=== PATIENT | female | born 1945 | race Caucasian/White ===

== ENCOUNTER → 2020-05-05 10:12 | Outpatient (BNVA) | payer MEDICARE, SELFPAY | PROVIDERS: PCP Internal Medicine Geriatric Medicine; Visit Provider Surgery | DX: C50.912 Malignant neoplasm of unspecified site of left female breast (principal) | CPT/HCPCS: 99212 ==

== ENCOUNTER 2020-11-30 09:25 | Outpatient (REF) | payer MEDICARE, SELFPAY ==
--- NOTE | ~2020-11-30 | MM_ITS ---
EXAMINATION: MM DIAGNOSTIC DIGITAL BREAST TOMOSYNTHESIS, BILATERAL CLINICAL INFORMATION: Due for yearly. 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 COMPARISON: Mammography: 12/01/2019, 09/23/2018, 05/19/2017, 03/19/2017, 03/19/2017, 03/05/2017. TECHNIQUE: Digital breast tomosynthesis is performed in both the craniocaudal and mediolateral oblique views along with computer-aided detection (CAD). Synthesized 2D images are generated from the tomosynthesis. FINDINGS: There are scattered areas of fibroglandular density (ACR BI-RADS breast composition Category b). Parenchymal pattern is similar to prior exam. There are post therapy changes on the right with scarring and surgical clips posterior upper outer quadrant. Neither breast shows interval mass or developing density or interval architectural abnormality. There are no abnormal calcifications. No significant changes. Results are provided to the patient at time of visit by the technologist. MM/MM tomosynthesis diagnostic BI IMPRESSION: No mammographic evidence of malignancy. Post therapy changes right breast. ASSESSMENT: BI-RADS 2: Benign RECOMMENDATION: Routine annual mammography screening. This patient's information was entered into a reminder system with a target due date for their next mammogram.
== END 2020-11-30 09:26 | disposition home or self-care (01) ==
LOC: HO.MAMMO 09:25
PROVIDERS: Visit Provider Surgery
DX: Z85.3 Personal history of malignant neoplasm of breast (principal)
CPT/HCPCS: 77062; 77066

== ENCOUNTER → 2020-12-07 09:17 | Outpatient (BNVA) | payer MEDICARE, SELFPAY | PROVIDERS: PCP Internal Medicine Geriatric Medicine; Visit Provider Surgery | DX: C50.912 Malignant neoplasm of unspecified site of left female breast (principal) | CPT/HCPCS: 99212 ==

== ENCOUNTER 2020-12-26 11:29 | Outpatient (REF) | payer MEDICARE, SELFPAY ==
[2020-12-26 12:32] LABS: Hemoglobin 12.8 g/dl (12.0-16.0); PLT CLUMP 1; Red Cell Distribution Width 12.9 % (11.0-16.0)
[2020-12-26 12:33] LABS: Hematocrit 37.4 % (37-47); Mean Corpuscular HGB Conc 34.2 g/dl (31.0-35.0); Mean Corpuscular Hemoglobin 30.3 pg (27.0-33.0); Mean Corpuscular Volume 88.4 fL (80-98); Mean Platelet Volume 9.9 fL (9.4-12.3); Platelet Count 146 X10*3/uL (160-400); Red Blood Count 4.23 X10*6/uL (4.20-5.50)
[2020-12-26 12:34] LABS: Estimated Average Glucose 174 mg/dL; Hemoglobin A1c % 7.7 %
[2020-12-26 12:35] LABS: White Blood Count 6.2 X10*3/uL (4.8-10.8)
[2020-12-26 12:42] LABS: Alanine Aminotransferase 19 U/L (0-31); Alkaline Phosphatase 77 U/L (39-117); Anion Gap 11 (12-20); Aspartate Amino Transferase 16 U/L (5-31); Bilirubin Direct 0.2 mg/dL (0.0-0.5); Bilirubin Total 0.6 mg/dL (0.0-1.0); Blood Urea Nitrogen 25 mg/dL (9-16); Calcium 9.4 mg/dL (8.4-10.2); Carbon Dioxide 26 mmol/L (22-29); Chloride 106 mmol/L (96-108); Estimated Glomerular Filt Rate > 60; Glucose Random 227 mg/dL (60-115); Potassium 4.2 mmol/L (3.3-5.1); Sodium 139 mmol/L (135-145); Total Protein 6.6 g/dL (6.5-8.0)
[2020-12-26 12:51] LABS: Creatinine Urine 47.96 mg/dL; Microalbum/Creatinine Ratio Ur 72.9 ug/mg cr
[2020-12-26 13:06] LABS: TSH reflex Free T4 1.01 uIU/mL (0.32-4.0)
== END 2020-12-26 11:30 | disposition home or self-care (01) ==
LOC: HO.LAB 11:29
PROVIDERS: PCP Internal Medicine Geriatric Medicine; Visit Provider Internal Medicine Geriatric Medicine
DX: E03.9 Hypothyroidism, unspecified (principal); E11.65 Type 2 diabetes mellitus with hyperglycemia; E78.2 Mixed hyperlipidemia
CPT/HCPCS: 36415; 80053; 82043; 82248; 83036; 84443; 85027

== ENCOUNTER 2021-06-20 11:06 | Outpatient (REF) | payer MEDICARE, SELFPAY ==
--- NOTE | 2021-06-27 16:57 | MHC.AU.ANO ---
Adult Audiological Evaluation Date of Visit: 06/20/21 Planning Official Used: Not Applicable Reason for Appointment: Princess was referred for an audiologic evaluation due to question of decreased hearing, right ear greater than left. The right ear hearing seemed to decrease when she experience pain and stiffness on the right side of her neck several months ago. However, very recently, Princess received injuries and required stitches to her left ear and face after being attacked by a dog. The areas are still healing and Dr. Beasley was not able to remove occluding cerumen seen in the left ear. Has hearing been tested previously?: No Hearing Handicap Inventory: HHIE SCORE: 24 Based on HHIE score, patient has: Mild to moderate perceived hearing handicap Ear History: Bothersome Tinnitus/Ringing/Noises in Ears: Right Ear Ear used on the phone: Right Ear Medical History: Medical History:Diabetes, Heart Problems, High Blood Pressure.Thyroid Disease, Breast Cancer treated with Lumpectomy and Radiation, Hylercholeserolemia Medication List: Aspirin, Clobetasol Propionate, Fluticasone Propionate, Debrox, Lipitor, Glipizide, Multivitamin, Enalapril Maleate, Atenolol, Levothyroxine Sodium, Macrobid Otoscopy: Right Ear: Small amount of non-occluding cerumen Left Ear: Mostly occluding cerumen Tympanometry: Tympanometry performed due to: To assess integrity of the middle ear system Right Ear: Normal Middle Ear System (Type A) Left Ear: Could Not Obtain Seal Patient Did Not Tolerate Tympanometry Otoacoustic Emissions Not performed at today's visit. Hearing Evaluation: Transducer(s) Used: Insert Earphones Bone Conduction Method: Conventional Audiometry Stimuli Used: Pure Tones Right Ear: Description of Hearing: Moderate to severe sensorineural hearing loss Left Ear: Description of Hearing: Mild sloping to moderately-severe sensorineural hearing loss Speech Recognition Threshold (SRT): Method Used: Monitored Live Voice Stimuli Used: Spondee Words Right Ear: 45 dB HL Left Ear: 35 dB HL Word Discrimination: Method: Recorded Lists Word Lists Used: NU-6 Right Ear: 92% at 80 dB HL Left Ear: 60% at 75 dB HL Recommendations: Given the asymmetric hearing loss and recent injury of the left ear and need for cerumen removal, advise medical consultation with an Director Of Epidemiology. Patient does not feel they are ready for amplification at this time. Audiological re-evaluation in one year. Will send a reminder card. Diagnosis: Primary Diagnosis: H90.3 Bilateral Sensorineural Hearing Loss Services Performed: Comprehensive Audiological Evaluation (CPT 46302) Tympanometry (CPT 72611) Signature: Provider: Chiara Rios, MARCIN-A
== END 2021-06-20 11:07 | disposition home or self-care (01) ==
LOC: HO.SH 11:06
PROVIDERS: Visit Provider Internal Medicine Geriatric Medicine
DX: Z01.118 Encounter for examination of ears and hearing with other abnormal findings (principal); H90.3 Sensorineural hearing loss, bilateral
CPT/HCPCS: 92557; 92567

== ENCOUNTER 2021-12-05 09:48 | Outpatient (REF) | payer MEDICARE, SELFPAY ==
--- NOTE | ~2021-12-05 | MM_ITS ---
EXAMINATION: MM SCREENING DIGITAL BREAST TOMOSYNTHESIS, BILATERAL CLINICAL INFORMATION: Screening. Asymptomatic. Right lumpectomy for IDC and DCIS, 2018. COMPARISON: Mammography: 11/30/2020, 12/01/2019, 09/23/2018, 03/05/2017, 06/16/2013 TECHNIQUE: Digital breast tomosynthesis is performed in both the craniocaudal and mediolateral oblique views along with computer-aided detection (CAD). Synthesized 2D images are generated from the tomosynthesis. FINDINGS: There are scattered areas of fibroglandular density (ACR BI-RADS breast composition Category b). There are post therapy changes right breast with mild reduced breast size, scarring, surgical clips posterior upper outer quadrant, and mild smooth skin thickening. There are no significant changes from prior exam. No developing density or interval architectural abnormality or abnormal calcifications. The axilla are unremarkable. MM/MM tomosynthesis screening BI IMPRESSION: No mammographic evidence of malignancy. Post therapy changes right breast. ASSESSMENT: BI-RADS 2: Benign RECOMMENDATION: Routine annual mammography screening. This patient's information was entered into a reminder system with a target due date for their next mammogram.
== END 2021-12-05 09:49 | disposition home or self-care (01) ==
LOC: HO.MAMMO 09:48
PROVIDERS: PCP Internal Medicine Geriatric Medicine; Visit Provider Internal Medicine Geriatric Medicine
DX: Z12.31 Encounter for screening mammogram for malignant neoplasm of breast (principal)
CPT/HCPCS: 77063; 77067

== ENCOUNTER 2022-07-20 17:09 | Inpatient (IN) | payer MEDICARE, SELFPAY ==
--- NOTE | ~2022-07-20 | XR_ITS ---
EXAMINATION: XR CHEST CLINICAL INFORMATION: Mental status change COMPARISON: Previous chest x-ray most recent 07/20/2022 TECHNIQUE: Frontal view of the chest was obtained. FINDINGS: The cardiac silhouette is slightly enlarged but stable. There is pulmonary venous redistribution, perihilar airspace disease and bilateral pleural effusions. Findings are suggestive of CHF. There are degenerative changes of the spine. XR/XR chest 1V IMPRESSION: CHF similar to recent exam.
--- NOTE | ~2022-07-20 | CT_ITS ---
EXAMINATION: CT HEAD WITHOUT CONTRAST CLINICAL INFORMATION: Altered mental status. COMPARISON: None. TECHNIQUE: Contiguous axial imaging was performed from the skullbase to vertex without intravenous administration of contrast. This CT examination was performed using dose optimization techniques as appropriate, variously including the following: *Automated exposure control *Adjustment of mA and/or kV according to patient size (this includes techniques or standardized protocols for targeted exams where dose is matched to indication/reason for exam; i.e. extremities or head) *Use of iterative reconstruction technique DLP: 605 mGy-cm. FINDINGS: There is no evidence of acute intracranial hemorrhage or territorial infarction. No abnormal mass effect or midline shift is seen. Guzman to white matter differentiation is well preserved. No extra-axial fluid collections are identified. [id number] chronic white matter microangiopathic changes noted with moderate diffuse parenchymal volume loss and concordant ex vacuo dilatation of the ventricles. The osseous structures and soft tissues are normal. The mastoid air cells and visualized portions of the paranasal sinuses are well aerated. CT/CT head/brain wo IV con IMPRESSION: No acute intracranial hemorrhage or territorial infarction. Moderate generalized parenchymal volume loss and [id number] chronic white matter microangiopathy.
--- NOTE | ~2022-07-20 | XR_ITS ---
EXAMINATION: XR CHEST CLINICAL INFORMATION: Hyperglycemia COMPARISON: None available. TECHNIQUE: Portable 5:33 PM view of the chest was obtained. FINDINGS: Low lung volumes. Mild cardiomegaly. Changes CHF or bronchial thickening and small pleural effusions left greater than right. No acute osseous abnormality. XR/XR chest 1V IMPRESSION: CHF as above.
--- NOTE | 2022-07-20 17:18 | ECG_ITS ---
Test Reason : TACHY Blood Pressure : / mmHG Vent. Rate : 112 BPM Atrial Rate : 000 BPM P-R Int : 000 ms QRS Dur : 072 ms QT Int : 296 ms P-R-T Axes : 000 -12 185 degrees QTc Int : 404 ms Atrial fibrillation with rapid ventricular response with premature ventricular or aberrantly conducted complexes Septal infarct , age undetermined ST & T wave abnormality, consider lateral ischemia Abnormal ECG No previous ECGs available Referred By: Vance Reeves Electronically Signed By:ZABRINA BANGURA MD
[2022-07-20 17:33] VITALS: BP 166/122; PULSE 140; RESP 30; TEMP 36.6; O2SAT 92; O2SAT 96; BMI 43.6
[2022-07-20 17:35] VITALS: PULSE 143
[2022-07-20 17:38] LABS: MANUAL DIFF FLAG NO
[2022-07-20 17:40] LABS: Basophils Percent Auto 0.3 % (0-2); Eosinophils Percent Auto 0.1 % (0-4); Hematocrit 47.3 % (37.0-47.0); Hemoglobin 16.1 g/dl (12.0-16.0); Imm Gran Abs Auto 0.09 X10*3/uL (0.00-0.03); Imm Gran Pct Auto 0.8 % (0.0-0.4); Lymphocytes Absolute Auto 0.7 X10*3/uL (1.2-4.9); Lymphocytes Percent Auto 6.4 % (20-40); Mean Corpuscular Hemoglobin 28.7 pg (27.0-33.0); Mean Corpuscular Volume 84.3 fL (80.0-98.0); Mean Platelet Volume 9.7 fL (9.4-12.3); Neutrophils Absolute Auto 9.4 x10*3/uL (2.0-8.3); Neutrophils Percent Auto 83.4 % (45-73); Platelet Count 216 X10*3/uL (160-400); Red Blood Count 5.61 X10*6/uL (4.20-5.50); Red Cell Distribution Width 13.5 % (11.0-16.0); White Blood Count 11.3 X10*3/uL (4.8-10.8)
[2022-07-20 17:41] LABS: Appearance Urine Clear; Color Urine Yellow; Glucose Urine UA >=1000 mg/dL (Negative); Leukocyte Esterase Urine Negative (Negative); Nitrite Urine Positive (Negative); Specific Gravity - Urine >= 1.030 (1.005-1.025); UMIC TRIGGER UACC YES; Urine Blood Small (1+) (Negative); Urine Ketones 15 mg/dL (Negative); Urine Protein 100 (2+) mg/dL (Neg-Trace)
[2022-07-20] MEDS: 0.9 % Sodium Chloride 1,000 ML 999 ML IV (17:43)
[2022-07-20] MEDS: Insulin Regular, Human 100 UNIT/ML 3 ML VIAL 10 UNIT IVPUSH (17:45)
[2022-07-20 17:50] LABS: Bacteria Urine 4+ (None Seen); Hyaline Casts Urine 0-2 /LPF (0-2); RBC Urine 0-2 /HPF (0-2); UACC Culture Trigger YES; WBC Urine 21-50 /HPF (0-5)
--- NOTE | 2022-07-20 17:56 | ED.GENADULT ---
HPI - General Adult General Chief complaint: General Medical Stated complaint: hyperglycemic Time Seen by Provider: 07/20/22 17:14 Source: patient and EMS Mode of arrival: EMS Limitations: no limitations and other (Poor historian) History of Present Illness HPI narrative: 77-year-old female came in for evaluation of high blood sugar. Patient is a poor historian unable to provide complete history, stated that she is diabetic controlled with pills no insulin at home, patient he had beads today that caused her blood sugar to be above 500, the patient found here to be tachycardic no acute EKG confirmed atrial fibrillation the patient is not aware of having a history of atrial fibrillation or taking blood thinner. Patient otherwise decline CP or SOB. No nausea, no vomiting, patient been complaining of diffuse abdominal pain for the past 2 weeks without diarrhea. Related Data Home Medications Medication Instructions Recorded Confirmed aspirin 81 mg tablet,delayed 81 mg PO DAILY 05/05/20 05/05/20 release atenolol 25 mg tablet 12.5 mg PO BID 05/05/20 05/05/20 atorvastatin 20 mg tablet 20 mg PO BEDTIME 05/05/20 05/05/20 blood sugar diagnostic #10 ea 05/05/20 05/05/20 enalapril maleate 20 mg tablet 20 mg PO QAM 05/05/20 05/05/20 glipizide 10 mg tablet 10 mg PO BID 05/05/20 05/05/20 glipizide 5 mg tablet 5 mg PO DAILY 05/05/20 05/05/20 levothyroxine 112 mcg tablet 112 mcg PO DAILY 05/05/20 05/05/20 multivitamin 1 tab PO DAILY 05/05/20 05/05/20 Allergies Allergy/AdvReac Type Severity Reaction Status Date / Time No Known Allergies Allergy Unverified 12/23/19 15:40 [No Known Allergies*] Review of Systems Review of Systems: All other systems are reviewed and are negative Constitutional: Reports as per HPI and Reports no additional constitutional complaints Eyes: Reports as per HPI and Reports no additional eye complaints Reports system reviewed and no additional complaints, except as documented Cardiovascular: Reports as per HPI and Reports no additional cardiovascular complaints Respiratory: Reports as per HPI and Reports no additional respiratory complaints Gastrointestinal: Reports as per HPI and Reports no additional gastrointestinal complaints Genitourinary: Reports no additional female genitourinary complaints Musculoskeletal: Reports no additional musculoskeletal complaints Skin/Breast: Reports system reviewed and no additional complaints, except as docu Psychiatric: Reports no additional psychiatric complaints Endocrine: Reports no additional endocrine complaints Hematologic/Lymphatic: Reports no additional hematologic/lymphatic complaints Allergic/Immunologic: Reports no additional allergic/immunologic complaints Reports system reviewed and no additional complaints, except as documented and Reports Abnormal speech present [facility] Past Medical History Medical History Invasive ductal carcinoma of left breast Surgical History History of hysterectomy for cancer History of knee surgery History of lumpectomy of right breast (05/25/17) History of right breast biopsy Social History Social History Advance Directives: No Advance Directives Information Provided: No Physical Exam ED Vital Signs: Vital Signs - 24 hr 07/20/22 17:33 07/20/22 17:35 Temperature 97.8 F Pulse Rate 140 H 143 H Respiratory Rate 30 H Blood Pressure 166/122 H Pulse Oximetry 92 Oxygen Delivery Method Room Air BMI result Body Mass Index 43.6 Vital signs have been reviewed as appeared to be correct. Blood pressure normal. Heart rate elevated . Respiration rate normal. Temperature normal. Oxygen saturation normal. Appearance: Alert. Oriented X3. No acute distress. Head: Normal external exam. Normocephalic. Atraumatic. No Alford signs noted. No raccoon eyes noted Eyes: PERRLA. EOMI. Conjunctiva and sclera normal. Eyelids normal. ENT: TM's Normal. Pharynx normal. Uvula midline. Moist mucous membranes. No trismus noted. No drooling noted. No muffled voice noted. Neck: Normal inspection. Neck supple. FROM. No adenopathy. Thyroid Normal. No meningeal signs. No neck mass noted. CVS: Rapid heart rate irregular. No murmurs noted. Pulses normal throughout. Respiratory: No respiratory distress. Painless inspiration. Breath sounds normal. No wheezes/rales/rhonchi noted. Chest nontender. No accessory muscle usage noted or decreased air movement noted. Abdomen: Soft and nontender. Bowel sounds normal in all 4 quadrants. No distention noted. No organomegaly noted. No visible injury noted. Back: No CVA tenderness. Full range of motion noted. Skin: Skin warm and dry. Normal skin color. Normal skin turgor. No rashes/lesions/lacerations noted. Extremities: No lower extremity edema. Extremities exhibit normal range of motion. Extremities nontender. Neuro: Oriented X 3. Cranial nerve exam: II-XII are grossly intact No motor deficit. No sensory deficit. Reflexes normal. Course Course Course Narrative: 77-year-old female came in with complaint of high blood sugar, patient is a poor historian however able to provide partial history, patient is diabetes non insulin dependent showing hyperglycemia with no DKA or anion gap. UTI meeting SIRS criteria but no severe sepsis or septic shock patient received IV fluids/ceftriaxone. Unclear previous history of atrial fibrillation with rapid AFib that was controlled with Cardizem IV/p.o., slight elevation of troponin will repeat troponin in 3 hours. Patient will be admitted accepted by the hospitalist service. Medications Administered Discontinued Medications Generic Name Dose Route Start Last Admin Trade Name Freq PRN Reason Stop Dose Admin Diltiazem HCl 20 mg 07/20/22 18:05 07/20/22 18:25 Diltiazem Hcl 50 Mg/10 Ml Vial IVPUSH 07/20/22 18:06 20 mg STAT STA Administration Diltiazem HCl 30 mg 07/20/22 18:05 07/20/22 18:26 Diltiazem Hcl 30 Mg Tablet PO 07/20/22 18:06 30 mg ONCE ONE Administration Protocol Sodium Chloride 1,000 mls @ 999 mls/hr 07/20/22 17:18 07/20/22 17:43 Ns IV 07/20/22 18:18 999 mls/hr .Q1H1M ONE Administration Insulin Human Regular 10 unit 07/20/22 17:18 07/20/22 17:45 Insulin Regular, Human 100 Unit/Ml 3 Ml Vial IVPUSH 07/20/22 17:19 10 unit ONCE ONE Administration Medical Decision Making Differential Diagnosis Differential Diagnoses: The differential diagnosis associated with the presentation includes (Hyperglycemia, DKA, electrolyte disturbance, acute renal injury, severe anemia, rapid atrial fibrillation, ACS, UTI.) Admission/Observation Consideration of admission/observation: Escalation of care including admission/observation considered Consult Healthcare Provider Management of the patient was discussed with: Hospitalist Lab Data MDM Lab Attestation statement: I reviewed the patient's lab results. 07/20/22 17:29 07/20/22 17:29 Labs: Lab Results 07/20/22 07/20/22 07/20/22 Range/Units 17:15 17:29 17:29 WBC 11.3 H (4.8-10.8) X10*3/uL RBC 5.61 H (4.20-5.50) X10*6/uL Hgb 16.1 H (12.0-16.0) g/dl Hct 47.3 H (37.0-47.0) % MCV 84.3 (80.0-98.0) fL MCH 28.7 (27.0-33.0) pg MCHC 34.0 (31.0-35.0) g/dl RDW 13.5 (11.0-16.0) % Plt Count 216 (160-400) X10*3/uL MPV 9.7 (9.4-12.3) fL Immature Gran % (Auto) 0.8 H (0.0-0.4) % Neut % (Auto) 83.4 H (45-73) % Lymph % (Auto) 6.4 L (20-40) % [place] % (Auto) 9.0 (2-11) % Eos % (Auto) 0.1 (0-4) % Baso % (Auto) 0.3 (0-2) % Lymph # (Auto) 0.7 L (1.2-4.9) X10*3/uL [place] # (Auto) 1.0 (0.1-1.2) X10*3/uL Eos # (Auto) 0.0 (0.0-0.4) X10*3/uL Baso # (Auto) 0.0 (0.0-0.2) X10*3/uL Abs Immat Gran (auto) 0.09 H (0.00-0.03) X10*3/uL Absolute Neuts (auto) 9.4 H (2.0-8.3) x10*3/uL Absolute Nucleated RBC 0.000 (0.0-0.012) X10*3/uL Nucleated RBC % (auto) 0.0 (0.0-0.2) /100WBC PT (10.0-13.1) SEC INR (0.9-1.1) APTT (26.0-36.4) SEC Sodium 133 L (135-145) mmol/L Potassium 4.7 (3.3-5.1) mmol/L Chloride 97 (96-108) mmol/L Carbon Dioxide 24 (22-29) mmol/L Anion Gap 17 (12-20) BUN 28 H (9-16) mg/dL Creatinine 1.32 (0.5-1.4) mg/dL Estim Creat Clear Calc 37.6 Estimated GFR 39 POC Glucose 539 H* (60-115) mg/dL Random Glucose 574 H* (60-115) mg/dL Lactic Acid (0.5-2.0) mmol/L Calcium 9.0 (8.4-10.2) mg/dL Total Bilirubin 0.9 (0.0-1.0) mg/dL Direct Bilirubin 0.3 (0.0-0.5) mg/dL AST 26 (5-31) U/L ALT 36 H (0-31) U/L Alkaline Phosphatase 112 (39-117) U/L Troponin I High Sens (<3.5-17.0) ng/L B-Natriuretic Peptide (<100) pg/mL Total Protein 6.7 (6.5-8.0) g/dL Albumin 3.7 (3.5-5.0) g/dL Lipase 124 H (8-78) U/L Urine Color Urine Appearance Urine pH (5.0-9.0) Ur Specific [place] (1.005-1.025) Urine Protein (Neg-Trace) mg/dL Urine Glucose (UA) (Negative) mg/dL Urine Ketones (Negative) mg/dL Urine Blood (Negative) Urine Nitrite (Negative) Ur Leukocyte Esterase (Negative) Urine RBC (0-2) /HPF Urine WBC (0-5) /HPF Ur Squamous Epith Cells (0-2) /HPF Urine Bacteria (None Seen) Hyaline Casts (0-2) /LPF Urine Yeast COVID-19 (DINORAH) (Negative) COVID-19 Clin Com 07/20/22 07/20/22 07/20/22 Range/Units 17:29 17:29 17:29 WBC (4.8-10.8) X10*3/uL RBC (4.20-5.50) X10*6/uL Hgb (12.0-16.0) g/dl Hct (37.0-47.0) % MCV (80.0-98.0) fL MCH (27.0-33.0) pg MCHC (31.0-35.0) g/dl RDW (11.0-16.0) % Plt Count (160-400) X10*3/uL MPV (9.4-12.3) fL Immature Gran % (Auto) (0.0-0.4) % Neut % (Auto) (45-73) % Lymph % (Auto) (20-40) % [place] % (Auto) (2-11) % Eos % (Auto) (0-4) % Baso % (Auto) (0-2) % Lymph # (Auto) (1.2-4.9) X10*3/uL [place] # (Auto) (0.1-1.2) X10*3/uL Eos # (Auto) (0.0-0.4) X10*3/uL Baso # (Auto) (0.0-0.2) X10*3/uL Abs Immat Gran (auto) (0.00-0.03) X10*3/uL Absolute Neuts (auto) (2.0-8.3) x10*3/uL Absolute Nucleated RBC (0.0-0.012) X10*3/uL Nucleated RBC % (auto) (0.0-0.2) /100WBC PT (10.0-13.1) SEC INR (0.9-1.1) APTT (26.0-36.4) SEC Sodium (135-145) mmol/L Potassium (3.3-5.1) mmol/L Chloride (96-108) mmol/L Carbon Dioxide (22-29) mmol/L Anion Gap (12-20) BUN (9-16) mg/dL Creatinine (0.5-1.4) mg/dL Estim Creat Clear Calc Estimated GFR POC Glucose (60-115) mg/dL Random Glucose (60-115) mg/dL Lactic Acid (0.5-2.0) mmol/L Calcium (8.4-10.2) mg/dL Total Bilirubin (0.0-1.0) mg/dL Direct Bilirubin (0.0-0.5) mg/dL AST (5-31) U/L ALT (0-31) U/L Alkaline Phosphatase (39-117) U/L Troponin I High Sens 17.6 H (<3.5-17.0) ng/L B-Natriuretic Peptide 115 H (<100) pg/mL Total Protein (6.5-8.0) g/dL Albumin (3.5-5.0) g/dL Lipase (8-78) U/L Urine Color Urine Appearance Urine pH (5.0-9.0) Ur Specific [place] (1.005-1.025) Urine Protein (Neg-Trace) mg/dL Urine Glucose (UA) (Negative) mg/dL Urine Ketones (Negative) mg/dL Urine Blood (Negative) Urine Nitrite (Negative) Ur Leukocyte Esterase (Negative) Urine RBC (0-2) /HPF Urine WBC (0-5) /HPF Ur Squamous Epith Cells (0-2) /HPF Urine Bacteria (None Seen) Hyaline Casts (0-2) /LPF Urine Yeast COVID-19 (DINORAH) Negative (Negative) COVID-19 Clin Com See Note 07/20/22 07/20/22 07/20/22 Range/Units 17:31 18:15 18:15 WBC (4.8-10.8) X10*3/uL RBC (4.20-5.50) X10*6/uL Hgb (12.0-16.0) g/dl Hct (37.0-47.0) % MCV (80.0-98.0) fL MCH (27.0-33.0) pg MCHC (31.0-35.0) g/dl RDW (11.0-16.0) % Plt Count (160-400) X10*3/uL MPV (9.4-12.3) fL Immature Gran % (Auto) (0.0-0.4) % Neut % (Auto) (45-73) % Lymph % (Auto) (20-40) % [place] % (Auto) (2-11) % Eos % (Auto) (0-4) % Baso % (Auto) (0-2) % Lymph # (Auto) (1.2-4.9) X10*3/uL [place] # (Auto) (0.1-1.2) X10*3/uL Eos # (Auto) (0.0-0.4) X10*3/uL Baso # (Auto) (0.0-0.2) X10*3/uL Abs Immat Gran (auto) (0.00-0.03) X10*3/uL Absolute Neuts (auto) (2.0-8.3) x10*3/uL Absolute Nucleated RBC (0.0-0.012) X10*3/uL Nucleated RBC % (auto) (0.0-0.2) /100WBC PT 12.5 (10.0-13.1) SEC INR 1.1 (0.9-1.1) APTT 24.1 L (26.0-36.4) SEC Sodium (135-145) mmol/L Potassium (3.3-5.1) mmol/L Chloride (96-108) mmol/L Carbon Dioxide (22-29) mmol/L Anion Gap (12-20) BUN (9-16) mg/dL Creatinine (0.5-1.4) mg/dL Estim Creat Clear Calc Estimated GFR POC Glucose (60-115) mg/dL Random Glucose (60-115) mg/dL Lactic Acid 2.3 H* (0.5-2.0) mmol/L Calcium (8.4-10.2) mg/dL Total Bilirubin (0.0-1.0) mg/dL Direct Bilirubin (0.0-0.5) mg/dL AST (5-31) U/L ALT (0-31) U/L Alkaline Phosphatase (39-117) U/L Troponin I High Sens (<3.5-17.0) ng/L B-Natriuretic Peptide (<100) pg/mL Total Protein (6.5-8.0) g/dL Albumin (3.5-5.0) g/dL Lipase (8-78) U/L Urine Color Yellow Urine Appearance Clear Urine pH 5.0 (5.0-9.0) Ur Specific [place] >= 1.030 H (1.005-1.025) Urine Protein 100 (2+) H (Neg-Trace) mg/dL Urine Glucose (UA) >=1000 H (Negative) mg/dL Urine Ketones 15 (Negative) mg/dL Urine Blood Small (1+) H (Negative) Urine Nitrite Positive H (Negative) Ur Leukocyte Esterase Negative (Negative) Urine RBC 0-2 (0-2) /HPF Urine WBC 21-50 H (0-5) /HPF Ur Squamous Epith Cells 3-5 (0-2) /HPF Urine Bacteria 4+ (None Seen) Hyaline Casts 0-2 (0-2) /LPF Urine Yeast Present COVID-19 (DINORAH) (Negative) COVID-19 Clin Com 07/20/22 Range/Units 18:27 WBC (4.8-10.8) X10*3/uL RBC (4.20-5.50) X10*6/uL Hgb (12.0-16.0) g/dl Hct (37.0-47.0) % MCV (80.0-98.0) fL MCH (27.0-33.0) pg MCHC (31.0-35.0) g/dl RDW (11.0-16.0) % Plt Count (160-400) X10*3/uL MPV (9.4-12.3) fL Immature Gran % (Auto) (0.0-0.4) % Neut % (Auto) (45-73) % Lymph % (Auto) (20-40) % [place] % (Auto) (2-11) % Eos % (Auto) (0-4) % Baso % (Auto) (0-2) % Lymph # (Auto) (1.2-4.9) X10*3/uL [place] # (Auto) (0.1-1.2) X10*3/uL Eos # (Auto) (0.0-0.4) X10*3/uL Baso # (Auto) (0.0-0.2) X10*3/uL Abs Immat Gran (auto) (0.00-0.03) X10*3/uL Absolute Neuts (auto) (2.0-8.3) x10*3/uL Absolute Nucleated RBC (0.0-0.012) X10*3/uL Nucleated RBC % (auto) (0.0-0.2) /100WBC PT (10.0-13.1) SEC INR (0.9-1.1) APTT (26.0-36.4) SEC Sodium (135-145) mmol/L Potassium (3.3-5.1) mmol/L Chloride (96-108) mmol/L Carbon Dioxide (22-29) mmol/L Anion Gap (12-20) BUN (9-16) mg/dL Creatinine (0.5-1.4) mg/dL Estim Creat Clear Calc Estimated GFR POC Glucose 394 H* (60-115) mg/dL Random Glucose (60-115) mg/dL Lactic Acid (0.5-2.0) mmol/L Calcium (8.4-10.2) mg/dL Total Bilirubin (0.0-1.0) mg/dL Direct Bilirubin (0.0-0.5) mg/dL AST (5-31) U/L ALT (0-31) U/L Alkaline Phosphatase (39-117) U/L Troponin I High Sens (<3.5-17.0) ng/L B-Natriuretic Peptide (<100) pg/mL Total Protein (6.5-8.0) g/dL Albumin (3.5-5.0) g/dL Lipase (8-78) U/L Urine Color Urine Appearance Urine pH (5.0-9.0) Ur Specific [place] (1.005-1.025) Urine Protein (Neg-Trace) mg/dL Urine Glucose (UA) (Negative) mg/dL Urine Ketones (Negative) mg/dL Urine Blood (Negative) Urine Nitrite (Negative) Ur Leukocyte Esterase (Negative) Urine RBC (0-2) /HPF Urine WBC (0-5) /HPF Ur Squamous Epith Cells (0-2) /HPF Urine Bacteria (None Seen) Hyaline Casts (0-2) /LPF Urine Yeast COVID-19 (DINORAH) (Negative) COVID-19 Clin Com Independent Interpretation I performed an independent interpretation of an: EKG (Atrial fibrillation with rapid ventricular response at 112., left axis deviation, no acute ST-T changes, no old EKG to compare.) and Plain X-Ray (Mild pulmonary congestion.) Radiology Impression Discussion of test interpretation with radiology: I have reviewed the radiologist's reading. Chronic Conditions Patient?s care impacted by: Diabetes Discharge Plan Discharge Clinical Impression: Acute UTI, Atrial fibrillation with rapid ventricular response, Hyperglycemia Patient Disposition: Admitted As Inpatient
[2022-07-20 17:59] LABS: B Type Natriuretic Peptide 115 pg/mL (<100)
[2022-07-20 18:00] LABS: COVID-19 Test Negative (Negative); IDNOW Serial# 08D9AD1C
[2022-07-20 18:02] LABS: Alanine Aminotransferase 36 U/L (0-31); Albumin Level 3.7 g/dL (3.5-5.0); Alkaline Phosphatase 112 U/L (39-117); Anion Gap 17 (12-20); Aspartate Amino Transferase 26 U/L (5-31); Bilirubin Direct 0.3 mg/dL (0.0-0.5); Bilirubin Total 0.9 mg/dL (0.0-1.0); Blood Urea Nitrogen 28 mg/dL (9-16); Carbon Dioxide 24 mmol/L (22-29); Chloride 97 mmol/L (96-108); Creatinine Clr Calc Pharmacy 37.6; Estimated Glomerular Filt Rate 39; Glucose Random 574 mg/dL (60-115); Lipase 124 U/L (8-78); Potassium 4.7 mmol/L (3.3-5.1); Sodium 133 mmol/L (135-145); Total Protein 6.7 g/dL (6.5-8.0)
[2022-07-20 18:10] LABS: Troponin-I High Sensitivity 17.6 ng/L (<3.5-17.0)
[2022-07-20] MEDS: dilTIAZem HCL 50 MG/10 ML VIAL 20 MG IVPUSH (18:25)
[2022-07-20 18:26] LABS: INTERNATIONAL NORM RATIO 1.1 (0.9-1.1); Prothrombin Time 12.5 SEC (10.0-13.1)
[2022-07-20] MEDS: dilTIAZem HCL 30 MG TABLET PO (18:26)
[2022-07-20 18:29] LABS: Partial Thromboplastin Time 24.1 SEC (26.0-36.4)
[2022-07-20 18:35] LABS: Lactic Acid 2.3 mmol/L (0.5-2.0)
[2022-07-20 18:43] LABS: Glucose, Whole Blood 539 mg/dL (60-115)
[2022-07-20 18:43] LABS: Glucose, Whole Blood 394 mg/dL (60-115)
[2022-07-20] MEDS: cefTRIAXone sodium 1 GM in 0.9 % Sodium Chloride 50 ML IV (18:53)
--- NOTE | 2022-07-20 19:02 | PM.IMHP ---
History of Present Illness Date of Service: 07/20/22 Attending physician on admission: Bryce Elena Chief Complaint: hyperglycemia, feeling unwell 77-year-old female with hypothyroidism, [id number] type 2 diabetes, hypertension, hyperlipidemia, paroxysmal atrial fibrillation anticoagulated with Eliquis, history of invasive ductal carcinoma of the breast, and history of uterine cancer presented to the ED earlier today via EMS for management of hyperglycemia. The patient is not the best historian but tells me that her diabetes medications had been making her feel unwell like her sugar was low but when she would check her sugar, her sugars were elevated so she felt that her monitor was not working and stop testing her sugars altogether. She also stopped taking her glipizide and metformin though she states she continues to feel unwell but does not elaborate on symptoms. She denies any fevers, chills, abdominal pain, nausea, vomiting, diarrhea, constipation. She has also been recently diagnosed with atrial fibrillation and is unclear if she has been taking the remainder of her medications. Her daughter tells me that the patient lives on her own and she has been calling frequent wellness checks on her mother and she also has a VNA nurse M-F. The patient has been canceling doctors appointments including the initial visit with her it project lead. She denies any palpiations, lightheadedness, headaches, shortness of breath, orthopnea, PND, or chest pain. She has noted increased swelling in the bilateral lower legs it has been ongoing for several days. On arrival, patient tachycardic to 140, tachypneic to 30, hypertensive to 166/122. No hypoxia. Mild leukocytosis of 11.3. Renal function normal. Sodium 133 likely pseudo hyponatremia in the setting of hyperglycemia with glucose on arrival 578. Remaining electrolytes within normal limits. Anion gap closed. Lactic acid 2.3. Troponin 17.6, BNP 115. EKG showing atrial fibrillation with RVR and PVCs or aberrant conducted complexes, rate 112. Urinalysis with negative leukocytes, positive nitrites, 1+ blood, significant glucose, positive urinary sediment, 4+ Bacteria. Chest x-ray showing CHF with mild cardiomegaly and small pleural effusions left greater than right. In the ED, given 10 units regular insulin with improvement in glucose to 394. Also given 20 mg push Cardizem followed by 30 mg p.o. Cardizem with improvement in heart rate to 75. She was also given 1 L IV NS and 1 g ceftriaxone. Review of Systems Review of Systems: General: No fevers, unintentional weight loss. +malaise HEENT: No blurred vision, diplopia. No sore throat, nasal congestion, rhinorrhea, sinus pain, ear pain Cardiovascular: No chest pain, palpitations. +BLE edema Respiratory: No shortness of breath, wheezing, cough GI: No abdominal pain, nausea, vomiting, diarrhea, constipation, melena, hematochezia : No dysuria, hematuria, increased urinary frequency, decreased urinary output MSK: No myalgia, back pain Neuro: No headaches, weakness, paresthesias Skin: No rashes or lesions [facility] Medical History (Updated 07/20/22 @ 19:43 by TADEO Beckwith) Atrial fibrillation Chronic anticoagulation History of uterine cancer HLD (hyperlipidemia) HTN (hypertension) Hypothyroidism Invasive ductal carcinoma of left breast Type 2 diabetes mellitus Surgical History History of hysterectomy for cancer History of knee surgery History of lumpectomy of right breast (05/25/17) History of right breast biopsy Social History (Updated 07/20/22 @ 19:23 by TADEO Beckwith) Household Members: None Do you presently have visiting nurse or other home services: Yes Alcohol intake: never Patient Tobacco Use Status: Tobacco use Unknown Use of substances other than those prescribed or required for medical reasons: No Advance Directives: No Advance Directives Information Provided: No Meds Allergies Allergy/AdvReac Type Severity Reaction Status Date / Time No Known Allergies Allergy Unverified 12/23/19 15:40 [No Known Allergies*] Active Medications: Current Medications Acetaminophen (Acetaminophen 325 Mg Tablet) 650 mg PO Q6H PRN PRN Reason: Pain, Mild (Pain Scale 1-3) Diltiazem HCl (Diltiazem Hcl 30 Mg Tablet) 30 mg PO QID ANTONIO; Protocol Furosemide (Furosemide 40 Mg/4 Ml Vial) 40 mg IVPUSH DAILY ANTONIO; Protocol Glucose (Glucose Gel 15 Gm Gel..Gram.) 15 gm PO Q15M PRN; Protocol PRN Reason: per Hypoglycemia Standing Ord. Ceftriaxone Sodium 1 gm/ (Sodium Chloride) 50 mls @ 100 mls/hr IV Q24H ANTONIO Stop: 07/24/22 19:24 Dextrose (D10) 250 mls @ 750 mls/hr IV Q15M PRN; Protocol PRN Reason: per Hypoglycemia Standing Ord. Insulin Human Lispro (Insulin Lispro 100 Unit/Ml 3 Ml Vial) 0 unit SUBCUT QIDACHS [facility]; Protocol Ondansetron HCl (Ondansetron Hcl 4 Mg/2 Ml Vial) 4 mg IVPUSH Q8H PRN PRN Reason: Nausea and Vomiting Pharmacy Consult (Consult Rx Perform Med Rec) 1 each MISCELLANE ONCE PRN PRN Reason: Consult order Sodium Chloride (0.9 % Sodium Chloride Flush 3 Ml Syringe) 3 ml IVFLUSH QSHIFT [facility] Home Medications Medication Instructions Recorded Confirmed Last Taken Type aspirin 81 mg tablet,delayed 81 mg PO DAILY 05/05/20 05/05/20 Unknown History release atenolol 25 mg tablet 12.5 mg PO BID 05/05/20 05/05/20 Unknown History atorvastatin 20 mg tablet 20 mg PO BEDTIME 05/05/20 05/05/20 Unknown History blood sugar diagnostic #10 ea 05/05/20 05/05/20 Unknown History enalapril maleate 20 mg tablet 20 mg PO QAM 05/05/20 05/05/20 Unknown History glipizide 10 mg tablet 10 mg PO BID 05/05/20 05/05/20 Unknown History glipizide 5 mg tablet 5 mg PO DAILY 05/05/20 05/05/20 Unknown History levothyroxine 112 mcg tablet 112 mcg PO DAILY 05/05/20 05/05/20 Unknown History multivitamin 1 tab PO DAILY 05/05/20 05/05/20 Unknown History Physical Exam Vital Signs and Narrative: Vital Signs: Last Vital Signs Temp 97.8 F 07/20/22 17:33 Pulse 143 H 07/20/22 17:35 Resp 30 H 07/20/22 17:33 BP 166/122 H 07/20/22 17:33 Pulse Ox 92 07/20/22 17:33 O2 Del Method Room Air 07/20/22 17:33 BMI result Body Mass Index 43.6 Constitutional - Awake and Alert, No apparent distress Eyes - PERRLA, EOMI Cardiovascular - S1S2, RRR, 4+ pitting edema BLE Respiratory - Normal lung expansion, Normal respiratory effort, No respiratory distress, bibasilar rales L>R Gastrointestinal - NT / ND; +BS; No rebound or guarding - No CVA tenderness Extremities - no calf tenderness bilaterally, no swelling Skin - Warm/Dry Neurological - Alert & oriented x3, but does seem somewhat confused with poor decision making, CN II-XII in tact Psychological - Appropriate affect Results Labs 07/20/22 17:29 07/20/22 17:29 Labs: Laboratory Results - last 24 hr 07/20/22 07/20/22 07/20/22 17:15 17:29 17:29 MCV 84.3 MCH 28.7 MCHC 34.0 RDW 13.5 Plt Count 216 MPV 9.7 Immature Gran % (Auto) 0.8 H Neut % (Auto) 83.4 H Lymph % (Auto) 6.4 L Ida % (Auto) 9.0 Eos % (Auto) 0.1 Baso % (Auto) 0.3 Lymph # (Auto) 0.7 L Ida # (Auto) 1.0 Eos # (Auto) 0.0 Baso # (Auto) 0.0 Abs Immat Gran (auto) 0.09 H Absolute Neuts (auto) 9.4 H Absolute Nucleated RBC 0.000 Nucleated RBC % (auto) 0.0 PT INR APTT Anion Gap 17 Estim Creat Clear Calc 37.6 Estimated GFR 39 POC Glucose 539 H* Random Glucose 574 H* Lactic Acid Calcium 9.0 Total Bilirubin 0.9 Direct Bilirubin 0.3 AST 26 ALT 36 H Alkaline Phosphatase 112 Troponin I High Sens B-Natriuretic Peptide Total Protein 6.7 Albumin 3.7 Lipase 124 H Urine Color Urine Appearance Urine pH Ur Specific [place] Urine Protein Urine Glucose (UA) Urine Ketones Urine Blood Urine Nitrite Ur Leukocyte Esterase Urine RBC Urine WBC Ur Squamous Epith Cells Urine Bacteria Hyaline Casts Urine Yeast COVID-19 (DINORAH) COVID-19 Clin Com 07/20/22 07/20/22 07/20/22 17:29 17:29 17:29 MCV MCH MCHC RDW Plt Count MPV Immature Gran % (Auto) Neut % (Auto) Lymph % (Auto) Ida % (Auto) Eos % (Auto) Baso % (Auto) Lymph # (Auto) Ida # (Auto) Eos # (Auto) Baso # (Auto) Abs Immat Gran (auto) Absolute Neuts (auto) Absolute Nucleated RBC Nucleated RBC % (auto) PT INR APTT Anion Gap Estim Creat Clear Calc Estimated GFR POC Glucose Random Glucose Lactic Acid Calcium Total Bilirubin Direct Bilirubin AST ALT Alkaline Phosphatase Troponin I High Sens 17.6 H B-Natriuretic Peptide 115 H Total Protein Albumin Lipase Urine Color Urine Appearance Urine pH Ur Specific [place] Urine Protein Urine Glucose (UA) Urine Ketones Urine Blood Urine Nitrite Ur Leukocyte Esterase Urine RBC Urine WBC Ur Squamous Epith Cells Urine Bacteria Hyaline Casts Urine Yeast COVID-19 (DINORAH) Negative COVID-19 Clin Com See Note 07/20/22 07/20/22 07/20/22 17:31 18:15 18:15 MCV MCH MCHC RDW Plt Count MPV Immature Gran % (Auto) Neut % (Auto) Lymph % (Auto) Ida % (Auto) Eos % (Auto) Baso % (Auto) Lymph # (Auto) Ida # (Auto) Eos # (Auto) Baso # (Auto) Abs Immat Gran (auto) Absolute Neuts (auto) Absolute Nucleated RBC Nucleated RBC % (auto) PT 12.5 INR 1.1 APTT 24.1 L Anion Gap Estim Creat Clear Calc Estimated GFR POC Glucose Random Glucose Lactic Acid 2.3 H* Calcium Total Bilirubin Direct Bilirubin AST ALT Alkaline Phosphatase Troponin I High Sens B-Natriuretic Peptide Total Protein Albumin Lipase Urine Color Yellow Urine Appearance Clear Urine pH 5.0 Ur Specific [place] >= 1.030 H Urine Protein 100 (2+) H Urine Glucose (UA) >=1000 H Urine Ketones 15 Urine Blood Small (1+) H Urine Nitrite Positive H Ur Leukocyte Esterase Negative Urine RBC 0-2 Urine WBC 21-50 H Ur Squamous Epith Cells 3-5 Urine Bacteria 4+ Hyaline Casts 0-2 Urine Yeast Present COVID-19 (DINORAH) COVID-19 Clin Com 07/20/22 18:27 MCV MCH MCHC RDW Plt Count MPV Immature Gran % (Auto) Neut % (Auto) Lymph % (Auto) Ida % (Auto) Eos % (Auto) Baso % (Auto) Lymph # (Auto) Ida # (Auto) Eos # (Auto) Baso # (Auto) Abs Immat Gran (auto) Absolute Neuts (auto) Absolute Nucleated RBC Nucleated RBC % (auto) PT INR APTT Anion Gap Estim Creat Clear Calc Estimated GFR POC Glucose 394 H* Random Glucose Lactic Acid Calcium Total Bilirubin Direct Bilirubin AST ALT Alkaline Phosphatase Troponin I High Sens B-Natriuretic Peptide Total Protein Albumin Lipase Urine Color Urine Appearance Urine pH Ur Specific [place] Urine Protein Urine Glucose (UA) Urine Ketones Urine Blood Urine Nitrite Ur Leukocyte Esterase Urine RBC Urine WBC Ur Squamous Epith Cells Urine Bacteria Hyaline Casts Urine Yeast COVID-19 (DINORAH) COVID-19 Clin Com Imaging Radiologist's Impressions: Impressions Chest X-Ray 07/20/22 17:38 IMPRESSION: CHF as above. Assessment and Plan (1) Acute UTI: Status: Acute (2) Atrial fibrillation with rapid ventricular response: Status: Acute (3) Hyperglycemia: Status: Acute (4) CHF (congestive heart failure): Status: Acute Plan 77-year-old female with hypothyroidism, [id number] type 2 diabetes, hypertension, hyperlipidemia, paroxysmal atrial fibrillation anticoagulated with Eliquis, history of invasive ductal carcinoma of the breast, and history of uterine cancer admitted for atrial fibrillation with RVR, UTI, and hyperglycemia. #Atrial fibrillation with RVR- chronicity unclear, appears to be a new diagnosis per her daughter -EKG with AFIB with RVR and PVCs vs Aberrant leak conducted complexes, rate 112 -Rate now stable following 20mg IV push cardizem. Continue 30mg QID PO cardizem -Continue Eliquis for anticoagulation - echocardiogram ordered - hold atenolol - appreciate cardiology input - magnesium and TSH pending - admit to telemetry #New onset CHF exacerbation -CXR with bilateral small pleural effusions, BNP 115, 4+ pitting edema BLE -Initiate lasix 40mg daily -Echo ordered - appreciate cardiology input - strict I&O - daily weights - cardiac diet #Acute UTI - UA with negative leukocytes, 1+ blood, positive nitrites, significant glucose, positive urinary sediment, 4+ blood - mild leukocytosis 11.3, tachycardia related to AFIB, tachypnea r/t CHF, not sepsis -IV ceftriaxone 1g x5 days (initiated 07/20) -Follow CBC,UC, BC # ifr-ywutmuv-[id number] type 2 diabetes with Hyperglycemia - hyperglycemia likely chronic related to medication noncompliance- no DKA, AG closed -Given 10 units regular insulin in ED with improvement to 394 -Hgb A1c pending -Add lantus 10 units nightly -Humalog SSI -POC glucose -Diabetic diet # hypothyroidism - TSH pending - continue levothyroxine # hypertension- reasonably controlled at this time - hold a tunnel, continue enalapril, continue diltiazem as above DVT prophylaxis-on [place]or full code admission discussed with patient's daughter, Dori. Please call with updates patient requires inpatient stay of at least 2 midnights for management of AFib with RVR and new onset CHF Time Spent With Patient Time: Total time managing care of this patient today ____ minutes. Quality Stroke Does the patient have a stroke diagnosis?: No VTE Prior VTE?: No VTE Risk Level:: Medical - moderate - high VTE Device Contraindication: Treatment Not Indicated VTE Drug Contraindication: N/A - Med Ordered
[2022-07-20] MEDS: Furosemide 40 MG/4 ML VIAL IVPUSH (19:30)
--- NOTE | 2022-07-20 19:52 | PC.NURSE ---
Addendum entered by Guillermina Guy RN 07/20/22 20:42: Attempted to call report at 20:42 with no answer from RN. Per 30 minute policy, pt will be transferred upstairs and floor RN will call for report. Original Note: Attempted to call report at 19:52. Nurse is with another patient, she will call back.
[2022-07-20 20:12] LABS: Troponin-I High Sensitivity 19.5 ng/L (<3.5-17.0)
[2022-07-20 20:18] LABS: Reflex Lactate? Lactic Acid Added
[2022-07-20 20:27] LABS: Glucose, Whole Blood 355 mg/dL (60-115)
[2022-07-20 21:16] LABS: Glucose, Whole Blood 428 mg/dL (60-115)
[2022-07-20 21:17] LABS: Magnesium 1.9 mg/dL (1.6-2.6)
[2022-07-20 21:24] VITALS: BP 151/70; PULSE 100; RESP 20; TEMP 36.6; O2SAT 94
[2022-07-20 21:31] LABS: Thyroid Stimulating Hormone 9.18 uIU/mL (0.32-4.0)
[2022-07-20 21:36] LABS: ~Lactic Acid-LAB USE ONLY 2.1 mmol/L (0.5-2.0)
[2022-07-20] MEDS: Insulin Lispro 100 UNIT/ML 3 ML VIAL SUBCUT (21:41)
[2022-07-20] MEDS: Apixaban 5 MG TABLET PO (21:42)
[2022-07-20] MEDS: 0.9 % Sodium Chloride Flush 3 ML SYRINGE IVFLUSH (21:42)
[2022-07-20] MEDS: Insulin Glargine,Hum.rec.anlog 100 UNIT/ML 10 ML VIAL 10 UNIT SUBCUT (21:42)
[2022-07-20] MEDS: Acetaminophen 325 MG TABLET 650 MG PO (22:12)
[2022-07-20 22:48] VITALS: BP 165/99; PULSE 110; RESP 22; TEMP 37.1; O2SAT 96
[2022-07-20 23:11] LABS: Reflex Lactate? 2 Y
[2022-07-20 23:58] LABS: ~Lactic Acid-LAB USE ONLY 2.9 mmol/L (0.5-2.0)
[2022-07-21] MEDS: dilTIAZem HCL 30 MG TABLET PO ×4 (00:37→17:59)
[2022-07-21 03:27] VITALS: BP 128/60; PULSE 74; RESP 14; TEMP 37; O2SAT 96
[2022-07-21] MEDS: dilTIAZem HCL 50 MG/10 ML VIAL 20 MG IVPUSH (06:44)
[2022-07-21 06:50] LABS: Basophils Percent Auto 0.3 % (0-2); Eosinophils Absolute Auto 0.1 X10*3/uL (0.0-0.4); Eosinophils Percent Auto 0.5 % (0-4); Hematocrit 49.1 % (37.0-47.0); Hemoglobin 16.6 g/dl (12.0-16.0); Imm Gran Abs Auto 0.09 X10*3/uL (0.00-0.03); Imm Gran Pct Auto 0.8 % (0.0-0.4); Lymphocytes Percent Auto 8.5 % (20-40); MANUAL DIFF FLAG SCAN; Mean Corpuscular HGB Conc 33.8 g/dl (31.0-35.0); Mean Corpuscular Hemoglobin 28.9 pg (27.0-33.0); Mean Corpuscular Volume 85.5 fL (80.0-98.0); Monocytes Absolute Auto 1.1 X10*3/uL (0.1-1.2); Monocytes Percent Auto 9.4 % (2-11); Neutrophils Absolute Auto 9.6 x10*3/uL (2.0-8.3); Neutrophils Percent Auto 80.5 % (45-73); PLT CLUMP 1; Red Blood Count 5.74 X10*6/uL (4.20-5.50); Red Cell Distribution Width 13.8 % (11.0-16.0); SCAN SMEAR FLAG 1
[2022-07-21 07:19] LABS: Glucose, Whole Blood 297 mg/dL (60-115)
[2022-07-21 07:22] LABS: Blood Urea Nitrogen 24 mg/dL (9-16); Calcium 8.6 mg/dL (8.4-10.2); Creatinine Clr Calc Pharmacy 49.6; Estimated Glomerular Filt Rate 54; Glucose Random 267 mg/dL (60-115); Platelet Count 197 X10*3/uL (160-400); White Blood Count 11.9 X10*3/uL (4.8-10.8)
[2022-07-21 07:23] LABS: SLIDE REVIEW VERIFIED
[2022-07-21 07:28] VITALS: BP 140/65; PULSE 86; RESP 20; TEMP 36.6; O2SAT 94
[2022-07-21 07:50] LABS: Anion Gap 16 (12-20); Carbon Dioxide 25 mmol/L (22-29); Chloride 99 mmol/L (96-108); Potassium 3.5 mmol/L (3.3-5.1); Sodium 136 mmol/L (135-145)
[2022-07-21 07:53] LABS: Hemoglobin A1c % > 14.0 %
[2022-07-21] MEDS: Insulin Lispro 100 UNIT/ML 3 ML VIAL SUBCUT ×3 (08:06→17:58)
[2022-07-21] MEDS: 0.9 % Sodium Chloride Flush 3 ML SYRINGE IVFLUSH ×2 (08:06→17:57)
[2022-07-21] MEDS: Apixaban 5 MG TABLET PO (08:06)
[2022-07-21] MEDS: Furosemide 40 MG/4 ML VIAL IVPUSH (08:06)
--- NOTE | 2022-07-21 08:33 | P.PNIM_ITS ---
Subjective Subjective Date of Service: 07/21/22 Interval History: Seen in follow up for hyperglycemia, CHF, AFIB rvr Interval history: Pt upset, paranoid about being in the hospital and being able to make own decisions. Pt trying to leave AMA. She is A&Ox3 but has demonstrated noncompliance consistently using poorly informed decision making resulting in adverse health outcomes. She wants to leave because no one can tell me what to do about my health . I am not sick, I am not in pain . Patient is in decompensated heart failure with persistent AFib with RVR. Glucose levels improved to 267 with insulin following long period of noncompliance with antihyperglycemic medications at home with glucose on arrival 574 without evidence of acidosis. She has been canceling important doctor's appointments for management of serious conditions, such as her AFib. She is living alone though Anders NA does come M-F. For these reasons, I feel patient lacks capacity to make informed medical decisions and will consult psychiatry for capacity evaluation. Denies sob, lightheadedness, palpitations, or chest pain. Review of Systems Review of Systems: Yes all other systems are reviewed and are negative Physical Exam Vital Signs: Vital Signs: Last Vital Signs Temp 98 F 07/21/22 07:28 Pulse 86 07/21/22 07:28 Resp 20 07/21/22 07:28 BP 140/65 H 07/21/22 07:28 Pulse Ox 94 07/21/22 07:28 O2 Del Method Room Air 07/21/22 07:28 BMI result Body Mass Index 43.6 Objective Data Active Medications Acetaminophen (Acetaminophen 325 Mg Tablet) 650 mg PO Q6H PRN PRN Reason: Pain, Mild (Pain Scale 1-3) Last Admin: 07/20/22 22:12 Dose: 650 mg Documented By: SHAREE Apixaban (Apixaban 5 Mg Tablet) 5 mg PO BID [facility] Last Admin: 07/21/22 08:06 Dose: 5 mg Documented By: CARINE Diltiazem HCl (Diltiazem Hcl 30 Mg Tablet) 30 mg PO QID [facility]; Protocol Last Admin: 07/21/22 08:06 Dose: 30 mg Documented By: CARINE Furosemide (Furosemide 40 Mg/4 Ml Vial) 40 mg IVPUSH DAILY [facility]; Protocol Last Admin: 07/21/22 08:06 Dose: 40 mg Documented By: CARINE Glucose (Glucose Gel 15 Gm Gel..Gram.) 15 gm PO Q15M PRN; Protocol PRN Reason: per Hypoglycemia Standing Ord. Ceftriaxone Sodium 1 gm/ (Sodium Chloride) 50 mls @ 100 mls/hr IV Q24H [facility] Stop: 07/24/22 19:24 Last Admin: 07/20/22 19:27 Dose: Not Given Documented By: SANTHOSH Non-Admin Reason: Physician Held Med Dextrose (D10) 250 mls @ 750 mls/hr IV Q15M PRN; Protocol PRN Reason: per Hypoglycemia Standing Ord. Insulin Glargine (Insulin Glargine,Hum.Rec.Anlog 100 Unit/Ml 10 Ml Vial) 10 unit SUBCUT BEDTIME [facility] Last Admin: 07/20/22 21:42 Dose: 10 unit Documented By: SHAREE Insulin Human Lispro (Insulin Lispro 100 Unit/Ml 3 Ml Vial) 0 unit SUBCUT QIDACHS [facility]; Protocol Last Admin: 07/21/22 08:06 Dose: 6 unit Documented By: CARINE Ondansetron HCl (Ondansetron Hcl 4 Mg/2 Ml Vial) 4 mg IVPUSH Q8H PRN PRN Reason: Nausea and Vomiting Pharmacy Consult (Consult Rx Perform Med Rec) 1 each MISCELLANE ONCE PRN PRN Reason: Consult order Sodium Chloride (0.9 % Sodium Chloride Flush 3 Ml Syringe) 3 ml IVFLUSH QSHIFT [facility] Last Admin: 07/21/22 08:06 Dose: 3 ml Documented By: CARINE Labs 07/21/22 06:29 07/21/22 06:29 Labs: Laboratory Results - last 24 hr 07/20/22 07/20/22 07/20/22 17:15 17:29 17:29 MCV 84.3 MCH 28.7 MCHC 34.0 RDW 13.5 Plt Count 216 MPV 9.7 Immature Gran % (Auto) 0.8 H Neut % (Auto) 83.4 H Lymph % (Auto) 6.4 L [place] % (Auto) 9.0 Eos % (Auto) 0.1 Baso % (Auto) 0.3 Lymph # (Auto) 0.7 L [place] # (Auto) 1.0 Eos # (Auto) 0.0 Baso # (Auto) 0.0 Abs Immat Gran (auto) 0.09 H Absolute Neuts (auto) 9.4 H Absolute Nucleated RBC 0.000 Nucleated RBC % (auto) 0.0 Smear Tech's Comments PT INR APTT Anion Gap 17 Estim Creat Clear Calc 37.6 Estimated GFR 39 POC Glucose 539 H* Random Glucose 574 H* Estimat Average Glucose Hemoglobin A1c % Lactic Acid Lactic Acid F/U @ 2Hr Lactic Acid F/U @ 4Hr Calcium 9.0 Magnesium 1.9 Total Bilirubin 0.9 Direct Bilirubin 0.3 AST 26 ALT 36 H Alkaline Phosphatase 112 Troponin I High Sens B-Natriuretic Peptide Total Protein 6.7 Albumin 3.7 Lipase 124 H TSH 9.18 H Free T4 1.30 Urine Color Urine Appearance Urine pH Ur Specific [place] Urine Protein Urine Glucose (UA) Urine Ketones Urine Blood Urine Nitrite Ur Leukocyte Esterase Urine RBC Urine WBC Ur Squamous Epith Cells Urine Bacteria Hyaline Casts Urine Yeast COVID-19 (DINORAH) COVPluggedIn 07/20/22 07/20/22 07/20/22 17:29 17:29 17:29 MCV MCH MCHC RDW Plt Count MPV Immature Gran % (Auto) Neut % (Auto) Lymph % (Auto) [place] % (Auto) Eos % (Auto) Baso % (Auto) Lymph # (Auto) [place] # (Auto) Eos # (Auto) Baso # (Auto) Abs Immat Gran (auto) Absolute Neuts (auto) Absolute Nucleated RBC Nucleated RBC % (auto) Smear Tech's Comments PT INR APTT Anion Gap Estim Creat Clear Calc Estimated GFR POC Glucose Random Glucose Estimat Average Glucose Hemoglobin A1c % Lactic Acid Lactic Acid F/U @ 2Hr Lactic Acid F/U @ 4Hr Calcium Magnesium Total Bilirubin Direct Bilirubin AST ALT Alkaline Phosphatase Troponin I High Sens 17.6 H B-Natriuretic Peptide 115 H Total Protein Albumin Lipase TSH Free T4 Urine Color Urine Appearance Urine pH Ur Specific [place] Urine Protein Urine Glucose (UA) Urine Ketones Urine Blood Urine Nitrite Ur Leukocyte Esterase Urine RBC Urine WBC Ur Squamous Epith Cells Urine Bacteria Hyaline Casts Urine Yeast COVID-19 (DINORAH) Negative [employer] See Note 07/20/22 07/20/22 07/20/22 17:29 17:31 18:15 MCV MCH MCHC RDW Plt Count MPV Immature Gran % (Auto) Neut % (Auto) Lymph % (Auto) [place] % (Auto) Eos % (Auto) Baso % (Auto) Lymph # (Auto) [place] # (Auto) Eos # (Auto) Baso # (Auto) Abs Immat Gran (auto) Absolute Neuts (auto) Absolute Nucleated RBC Nucleated RBC % (auto) Smear Tech's Comments PT INR APTT Anion Gap Estim Creat Clear Calc Estimated GFR POC Glucose Random Glucose Estimat Average Glucose TNP Hemoglobin A1c % > 14.0 Lactic Acid 2.3 H* Lactic Acid F/U @ 2Hr Lactic Acid F/U @ 4Hr Calcium Magnesium Total Bilirubin Direct Bilirubin AST ALT Alkaline Phosphatase Troponin I High Sens B-Natriuretic Peptide Total Protein Albumin Lipase TSH Free T4 Urine Color Yellow Urine Appearance Clear Urine pH 5.0 Ur Specific [place] >= 1.030 H Urine Protein 100 (2+) H Urine Glucose (UA) >=1000 H Urine Ketones 15 Urine Blood Small (1+) H Urine Nitrite Positive H Ur Leukocyte Esterase Negative Urine RBC 0-2 Urine WBC 21-50 H Ur Squamous Epith Cells 3-5 Urine Bacteria 4+ Hyaline Casts 0-2 Urine Yeast Present COVID-19 (DINORAH) [employer] 07/20/22 07/20/22 07/20/22 18:15 18:27 19:38 MCV MCH MCHC RDW Plt Count MPV Immature Gran % (Auto) Neut % (Auto) Lymph % (Auto) [place] % (Auto) Eos % (Auto) Baso % (Auto) Lymph # (Auto) [place] # (Auto) Eos # (Auto) Baso # (Auto) Abs Immat Gran (auto) Absolute Neuts (auto) Absolute Nucleated RBC Nucleated RBC % (auto) Smear Tech's Comments PT 12.5 INR 1.1 APTT 24.1 L Anion Gap Estim Creat Clear Calc Estimated GFR POC Glucose 394 H* Random Glucose Estimat Average Glucose Hemoglobin A1c % Lactic Acid Lactic Acid F/U @ 2Hr Lactic Acid F/U @ 4Hr Calcium Magnesium Total Bilirubin Direct Bilirubin AST ALT Alkaline Phosphatase Troponin I High Sens 19.5 H B-Natriuretic Peptide Total Protein Albumin Lipase TSH Free T4 Urine Color Urine Appearance Urine pH Ur Specific [place] Urine Protein Urine Glucose (UA) Urine Ketones Urine Blood Urine Nitrite Ur Leukocyte Esterase Urine RBC Urine WBC Ur Squamous Epith Cells Urine Bacteria Hyaline Casts Urine Yeast COVID-19 (DINORAH) COVID-[facility] 07/20/22 07/20/22 07/20/22 20:24 21:08 21:12 MCV MCH MCHC RDW Plt Count MPV Immature Gran % (Auto) Neut % (Auto) Lymph % (Auto) [place] % (Auto) Eos % (Auto) Baso % (Auto) Lymph # (Auto) [place] # (Auto) Eos # (Auto) Baso # (Auto) Abs Immat Gran (auto) Absolute Neuts (auto) Absolute Nucleated RBC Nucleated RBC % (auto) Smear Tech's Comments PT INR APTT Anion Gap Estim Creat Clear Calc Estimated GFR POC Glucose 355 H* 428 H* Random Glucose Estimat Average Glucose Hemoglobin A1c % Lactic Acid Lactic Acid F/U @ 2Hr 2.1 H* Lactic Acid F/U @ 4Hr Calcium Magnesium Total Bilirubin Direct Bilirubin AST ALT Alkaline Phosphatase Troponin I High Sens B-Natriuretic Peptide Total Protein Albumin Lipase TSH Free T4 Urine Color Urine Appearance Urine pH Ur Specific [place] Urine Protein Urine Glucose (UA) Urine Ketones Urine Blood Urine Nitrite Ur Leukocyte Esterase Urine RBC Urine WBC Ur Squamous Epith Cells Urine Bacteria Hyaline Casts Urine Yeast COVID-19 (DINORAH) COVID-19 Clin [facility] 07/20/22 07/21/22 07/21/22 23:27 06:29 06:29 MCV 85.5 MCH 28.9 MCHC 33.8 RDW 13.8 Plt Count 197 MPV 10.0 Immature Gran % (Auto) 0.8 H Neut % (Auto) 80.5 H Lymph % (Auto) 8.5 L [place] % (Auto) 9.4 Eos % (Auto) 0.5 Baso % (Auto) 0.3 Lymph # (Auto) 1.0 L [place] # (Auto) 1.1 Eos # (Auto) 0.1 Baso # (Auto) 0.0 Abs Immat Gran (auto) 0.09 H Absolute Neuts (auto) 9.6 H Absolute Nucleated RBC 0.000 Nucleated RBC % (auto) 0.0 Smear Tech's Comments VERIFIED PT INR APTT Anion Gap 16 Estim Creat Clear Calc 49.6 Estimated GFR 54 POC Glucose Random Glucose 267 H Estimat Average Glucose Hemoglobin A1c % Lactic Acid Lactic Acid F/U @ 2Hr Lactic Acid F/U @ 4Hr 2.9 H* Calcium 8.6 Magnesium Total Bilirubin Direct Bilirubin AST ALT Alkaline Phosphatase Troponin I High Sens B-Natriuretic Peptide Total Protein Albumin Lipase TSH Free T4 Urine Color Urine Appearance Urine pH Ur Specific [place] Urine Protein Urine Glucose (UA) Urine Ketones Urine Blood Urine Nitrite Ur Leukocyte Esterase Urine RBC Urine WBC Ur Squamous Epith Cells Urine Bacteria Hyaline Casts Urine Yeast COVID-19 (DINORAH) COVID-19 [place] Com 07/21/22 07:14 MCV MCH MCHC RDW Plt Count MPV Immature Gran % (Auto) Neut % (Auto) Lymph % (Auto) [place] % (Auto) Eos % (Auto) Baso % (Auto) Lymph # (Auto) [place] # (Auto) Eos # (Auto) Baso # (Auto) Abs Immat Gran (auto) Absolute Neuts (auto) Absolute Nucleated RBC Nucleated RBC % (auto) Smear Tech's Comments PT INR APTT Anion Gap Estim Creat Clear Calc Estimated GFR POC Glucose 297 H Random Glucose Estimat Average Glucose Hemoglobin A1c % Lactic Acid Lactic Acid F/U @ 2Hr Lactic Acid F/U @ 4Hr Calcium Magnesium Total Bilirubin Direct Bilirubin AST ALT Alkaline Phosphatase Troponin I High Sens B-Natriuretic Peptide Total Protein Albumin Lipase TSH Free T4 Urine Color Urine Appearance Urine pH Ur Specific [place] Urine Protein Urine Glucose (UA) Urine Ketones Urine Blood Urine Nitrite Ur Leukocyte Esterase Urine RBC Urine WBC Ur Squamous Epith Cells Urine Bacteria Hyaline Casts Urine Yeast COVID-19 (DINORAH) COVID-19 Clin Com Assessment and Plan (1) Type 2 diabetes mellitus: Status: Acute (2) Hyperglycemia: Status: Acute Time Spent With Patient Time: Total time managing care of this patient today ____ minutes. Quality Stroke Does the patient have a stroke diagnosis?: No VTE Prior VTE?: No VTE Risk Level:: Medical - moderate - high VTE Device Contraindication: Treatment Not Indicated VTE Drug Contraindication: N/A - Med Ordered
--- NOTE | 2022-07-21 11:08 | PM.PSYCN ---
History of Present Illness Date of Service: 07/21/22 Chief Complaint: Afib rvr,hyperglycemia,uti Reason for Consult: Capacity Requesting physician: Vicki Munoz Discussed with referring provider: Yes Sources of Information: patient interviewed and chart reviewed Additional Sources of Information: sister HPI Narrative: 77 year old woman with multiple medical problems.admitted yesterday due to blood sugar of abnormal vitals, glucose of 578 and afib with rate of 140. Vitals have stabilized and glucose levels much improved. She is due to get an echocardiogram today. She has been asking to go home, feels better and is aware that her sugars are improved. She is aware of having heart problems, HTN, hypothyroidism and diabetes. She is aware of her history of breast and uterine cancer. She states that she has a visiting nurse that helps her set up her meds at home. She states that she has a wheelchair at home to assist with getting around and states she knows that she needs to be careful when she gets home because she still feels a bit weak. Past Psychiatric History: No known history of inpatient or outpatient psychiatric treatment. Medical Evaluation Reviewed: Yes Personal & Social History: Denies childhood trauma history. Per sister, she was in special classes and quit school at age 15. She is . One of her 3 children of COVID in Mar 2021. Lives alone in [place]. Sister and one of her daughters live nearby in [place]. [facility] Medical History (Updated 07/21/22 @ 11:23 by Judith San MD) Atrial fibrillation Chronic anticoagulation History of uterine cancer HLD (hyperlipidemia) HTN (hypertension) Hypothyroidism Invasive ductal carcinoma of left breast Type 2 diabetes mellitus Surgical History History of hysterectomy for cancer History of knee surgery History of lumpectomy of right breast (05/25/17) History of right breast biopsy Substance History: No known history of substance abuse Trauma History: None known Diagnostics Vital Signs (24Hr): Vital Signs - 24 hr 07/20/22 17:33 07/20/22 17:35 07/20/22 21:24 Temperature 97.8 F 97.8 F Pulse Rate 140 H 143 H 100 Respiratory Rate 30 H 20 Blood Pressure 166/122 H 151/70 H Pulse Oximetry 92 94 Oxygen Delivery Method Room Air Room Air 07/20/22 22:48 07/21/22 03:27 07/21/22 07:28 Temperature 98.7 F 98.6 F 98 F Pulse Rate 110 H 74 86 Respiratory Rate 22 H 14 20 Blood Pressure 165/99 H 128/60 140/65 H Pulse Oximetry 96 96 94 Oxygen Delivery Method Room Air Room Air Room Air BMI result Body Mass Index 43.6 Labs 07/21/22 06:29 07/21/22 06:29 Labs: Laboratory Results - last 48 hr 07/20/22 07/20/22 07/20/22 17:15 17:29 17:29 WBC 11.3 H RBC 5.61 H Hgb 16.1 H Hct 47.3 H MCV 84.3 MCH 28.7 MCHC 34.0 RDW 13.5 Plt Count 216 MPV 9.7 Immature Gran % (Auto) 0.8 H Neut % (Auto) 83.4 H Lymph % (Auto) 6.4 L [place] % (Auto) 9.0 Eos % (Auto) 0.1 Baso % (Auto) 0.3 Lymph # (Auto) 0.7 L [place] # (Auto) 1.0 Eos # (Auto) 0.0 Baso # (Auto) 0.0 Abs Immat Gran (auto) 0.09 H Absolute Neuts (auto) 9.4 H Absolute Nucleated RBC 0.000 Nucleated RBC % (auto) 0.0 Smear Tech's Comments PT INR APTT Sodium 133 L Potassium 4.7 Chloride 97 Carbon Dioxide 24 Anion Gap 17 BUN 28 H Creatinine 1.32 Estim Creat Clear Calc 37.6 Estimated GFR 39 POC Glucose 539 H* Random Glucose 574 H* Estimat Average Glucose Hemoglobin A1c % Lactic Acid Lactic Acid F/U @ 2Hr Lactic Acid F/U @ 4Hr Calcium 9.0 Magnesium 1.9 Total Bilirubin 0.9 Direct Bilirubin 0.3 AST 26 ALT 36 H Alkaline Phosphatase 112 Troponin I High Sens B-Natriuretic Peptide Total Protein 6.7 Albumin 3.7 Lipase 124 H TSH 9.18 H Free T4 1.30 Urine Color Urine Appearance Urine pH Ur Specific [place] Urine Protein Urine Glucose (UA) Urine Ketones Urine Blood Urine Nitrite Ur Leukocyte Esterase Urine RBC Urine WBC Ur Squamous Epith Cells Urine Bacteria Hyaline Casts Urine Yeast COVID-19 (DINORAH) COVID-19 Clin Com 07/20/22 07/20/22 07/20/22 17:29 17:29 17:29 WBC RBC Hgb Hct MCV MCH MCHC RDW Plt Count MPV Immature Gran % (Auto) Neut % (Auto) Lymph % (Auto) [place] % (Auto) Eos % (Auto) Baso % (Auto) Lymph # (Auto) [place] # (Auto) Eos # (Auto) Baso # (Auto) Abs Immat Gran (auto) Absolute Neuts (auto) Absolute Nucleated RBC Nucleated RBC % (auto) Smear Tech's Comments PT INR APTT Sodium Potassium Chloride Carbon Dioxide Anion Gap BUN Creatinine Estim Creat Clear Calc Estimated GFR POC Glucose Random Glucose Estimat Average Glucose Hemoglobin A1c % Lactic Acid Lactic Acid F/U @ 2Hr Lactic Acid F/U @ 4Hr Calcium Magnesium Total Bilirubin Direct Bilirubin AST ALT Alkaline Phosphatase Troponin I High Sens 17.6 H B-Natriuretic Peptide 115 H Total Protein Albumin Lipase TSH Free T4 Urine Color Urine Appearance Urine pH Ur Specific [place] Urine Protein Urine Glucose (UA) Urine Ketones Urine Blood Urine Nitrite Ur Leukocyte Esterase Urine RBC Urine WBC Ur Squamous Epith Cells Urine Bacteria Hyaline Casts Urine Yeast COVID-19 (DINORAH) Negative COVID-19 Clin Com See Note 07/20/22 07/20/22 07/20/22 17:29 17:31 18:15 WBC RBC Hgb Hct MCV MCH MCHC RDW Plt Count MPV Immature Gran % (Auto) Neut % (Auto) Lymph % (Auto) [place] % (Auto) Eos % (Auto) Baso % (Auto) Lymph # (Auto) [place] # (Auto) Eos # (Auto) Baso # (Auto) Abs Immat Gran (auto) Absolute Neuts (auto) Absolute Nucleated RBC Nucleated RBC % (auto) Smear Tech's Comments PT INR APTT Sodium Potassium Chloride Carbon Dioxide Anion Gap BUN Creatinine Estim Creat Clear Calc Estimated GFR POC Glucose Random Glucose Estimat Average Glucose TNP Hemoglobin A1c % > 14.0 Lactic Acid 2.3 H* Lactic Acid F/U @ 2Hr Lactic Acid F/U @ 4Hr Calcium Magnesium Total Bilirubin Direct Bilirubin AST ALT Alkaline Phosphatase Troponin I High Sens B-Natriuretic Peptide Total Protein Albumin Lipase TSH Free T4 Urine Color Yellow Urine Appearance Clear Urine pH 5.0 Ur Specific [place] >= 1.030 H Urine Protein 100 (2+) H Urine Glucose (UA) >=1000 H Urine Ketones 15 Urine Blood Small (1+) H Urine Nitrite Positive H Ur Leukocyte Esterase Negative Urine RBC 0-2 Urine WBC 21-50 H Ur Squamous Epith Cells 3-5 Urine Bacteria 4+ Hyaline Casts 0-2 Urine Yeast Present COVID-19 (DINORAH) COVID-19 Clin Com 07/20/22 07/20/22 07/20/22 18:15 18:27 19:38 WBC RBC Hgb Hct MCV MCH MCHC RDW Plt Count MPV Immature Gran % (Auto) Neut % (Auto) Lymph % (Auto) [place] % (Auto) Eos % (Auto) Baso % (Auto) Lymph # (Auto) [place] # (Auto) Eos # (Auto) Baso # (Auto) Abs Immat Gran (auto) Absolute Neuts (auto) Absolute Nucleated RBC Nucleated RBC % (auto) Smear Tech's Comments PT 12.5 INR 1.1 APTT 24.1 L Sodium Potassium Chloride Carbon Dioxide Anion Gap BUN Creatinine Estim Creat Clear Calc Estimated GFR POC Glucose 394 H* Random Glucose Estimat Average Glucose Hemoglobin A1c % Lactic Acid Lactic Acid F/U @ 2Hr Lactic Acid F/U @ 4Hr Calcium Magnesium Total Bilirubin Direct Bilirubin AST ALT Alkaline Phosphatase Troponin I High Sens 19.5 H B-Natriuretic Peptide Total Protein Albumin Lipase TSH Free T4 Urine Color Urine Appearance Urine pH Ur Specific [place] Urine Protein Urine Glucose (UA) Urine Ketones Urine Blood Urine Nitrite Ur Leukocyte Esterase Urine RBC Urine WBC Ur Squamous Epith Cells Urine Bacteria Hyaline Casts Urine Yeast COVID-19 (DINORAH) COVID-19 [employer] 07/20/22 07/20/22 07/20/22 20:24 21:08 21:12 WBC RBC Hgb Hct MCV MCH MCHC RDW Plt Count MPV Immature Gran % (Auto) Neut % (Auto) Lymph % (Auto) [place] % (Auto) Eos % (Auto) Baso % (Auto) Lymph # (Auto) [place] # (Auto) Eos # (Auto) Baso # (Auto) Abs Immat Gran (auto) Absolute Neuts (auto) Absolute Nucleated RBC Nucleated RBC % (auto) Smear Tech's Comments PT INR APTT Sodium Potassium Chloride Carbon Dioxide Anion Gap BUN Creatinine Estim Creat Clear Calc Estimated GFR POC Glucose 355 H* 428 H* Random Glucose Estimat Average Glucose Hemoglobin A1c % Lactic Acid Lactic Acid F/U @ 2Hr 2.1 H* Lactic Acid F/U @ 4Hr Calcium Magnesium Total Bilirubin Direct Bilirubin AST ALT Alkaline Phosphatase Troponin I High Sens B-Natriuretic Peptide Total Protein Albumin Lipase TSH Free T4 Urine Color Urine Appearance Urine pH Ur Specific [place] Urine Protein Urine Glucose (UA) Urine Ketones Urine Blood Urine Nitrite Ur Leukocyte Esterase Urine RBC Urine WBC Ur Squamous Epith Cells Urine Bacteria Hyaline Casts Urine Yeast COVID-19 (DINORAH) COVID-19 [employer] Com 07/20/22 07/21/22 07/21/22 23:27 06:29 06:29 WBC 11.9 H RBC 5.74 H Hgb 16.6 H Hct 49.1 H MCV 85.5 MCH 28.9 MCHC 33.8 RDW 13.8 Plt Count 197 MPV 10.0 Immature Gran % (Auto) 0.8 H Neut % (Auto) 80.5 H Lymph % (Auto) 8.5 L [place] % (Auto) 9.4 Eos % (Auto) 0.5 Baso % (Auto) 0.3 Lymph # (Auto) 1.0 L [place] # (Auto) 1.1 Eos # (Auto) 0.1 Baso # (Auto) 0.0 Abs Immat Gran (auto) 0.09 H Absolute Neuts (auto) 9.6 H Absolute Nucleated RBC 0.000 Nucleated RBC % (auto) 0.0 Smear Tech's Comments VERIFIED PT INR APTT Sodium 136 Potassium 3.5 D Chloride 99 Carbon Dioxide 25 Anion Gap 16 BUN 24 H Creatinine 1.00 Estim Creat Clear Calc 49.6 Estimated GFR 54 POC Glucose Random Glucose 267 H Estimat Average Glucose Hemoglobin A1c % Lactic Acid Lactic Acid F/U @ 2Hr Lactic Acid F/U @ 4Hr 2.9 H* Calcium 8.6 Magnesium Total Bilirubin Direct Bilirubin AST ALT Alkaline Phosphatase Troponin I High Sens B-Natriuretic Peptide Total Protein Albumin Lipase TSH Free T4 Urine Color Urine Appearance Urine pH Ur Specific [place] Urine Protein Urine Glucose (UA) Urine Ketones Urine Blood Urine Nitrite Ur Leukocyte Esterase Urine RBC Urine WBC Ur Squamous Epith Cells Urine Bacteria Hyaline Casts Urine Yeast COVID-19 (DINORAH) COVID-19 Clin Com 07/21/22 07:14 WBC RBC Hgb Hct MCV MCH MCHC RDW Plt Count MPV Immature Gran % (Auto) Neut % (Auto) Lymph % (Auto) [place] % (Auto) Eos % (Auto) Baso % (Auto) Lymph # (Auto) [place] # (Auto) Eos # (Auto) Baso # (Auto) Abs Immat Gran (auto) Absolute Neuts (auto) Absolute Nucleated RBC Nucleated RBC % (auto) Smear Tech's Comments PT INR APTT Sodium Potassium Chloride Carbon Dioxide Anion Gap BUN Creatinine Estim Creat Clear Calc Estimated GFR POC Glucose 297 H Random Glucose Estimat Average Glucose Hemoglobin A1c % Lactic Acid Lactic Acid F/U @ 2Hr Lactic Acid F/U @ 4Hr Calcium Magnesium Total Bilirubin Direct Bilirubin AST ALT Alkaline Phosphatase Troponin I High Sens B-Natriuretic Peptide Total Protein Albumin Lipase TSH Free T4 Urine Color Urine Appearance Urine pH Ur Specific [place] Urine Protein Urine Glucose (UA) Urine Ketones Urine Blood Urine Nitrite Ur Leukocyte Esterase Urine RBC Urine WBC Ur Squamous Epith Cells Urine Bacteria Hyaline Casts Urine Yeast COVID-19 ([facility]INORAH) COVID-19 Clin Com Imaging Radiology Impressions: ITS Impressions Chest X-Ray 07/20/22 17:38 IMPRESSION: CHF as above. Mental Status Exam Mental Status Exam Patient Appearance: Well Grooomed Patient Orientation: Person, Place, Time and Situation Level of Consciousness: Alert Patient Behavior: Appropriate and Good Eye Contact Mood Description: Calm Affect Description: Cheerful Ability to Follow Directions: Good Speech Pattern: Clear Memory Description: Short Term Intact (able to recall 1/3 items at 5 minutes but recalled all 3 items with categorical hints) Hallucinations: None Delusions: Not Present Thought Process: Linear Thought Content: positive for Goal Oriented Judgement: Fair Medications Medications Current Medications Acetaminophen (Acetaminophen 325 Mg Tablet) 650 mg PO Q6H PRN PRN Reason: Pain, Mild (Pain Scale 1-3) Last Admin: 07/20/22 22:12 Dose: 650 mg Apixaban (Apixaban 5 Mg Tablet) 5 mg PO BID [facility] Last Admin: 07/21/22 08:06 Dose: 5 mg Diltiazem HCl (Diltiazem Hcl 30 Mg Tablet) 30 mg PO QID [facility]; Protocol Last Admin: 07/21/22 08:06 Dose: 30 mg Furosemide (Furosemide 40 Mg/4 Ml Vial) 40 mg IVPUSH DAILY [facility]; Protocol Last Admin: 07/21/22 08:06 Dose: 40 mg Glucose (Glucose Gel 15 Gm Gel..Gram.) 15 gm PO Q15M PRN; Protocol PRN Reason: per Hypoglycemia Standing Ord. Ceftriaxone Sodium 1 gm/ (Sodium Chloride) 50 mls @ 100 mls/hr IV Q24H [facility] Stop: 07/24/22 19:24 Last Admin: 07/20/22 19:27 Dose: Not Given Dextrose (D10) 250 mls @ 750 mls/hr IV Q15M PRN; Protocol PRN Reason: per Hypoglycemia Standing Ord. Insulin Glargine (Insulin Glargine,Hum.Rec.Anlog 100 Unit/Ml 10 Ml Vial) 10 unit SUBCUT BEDTIME [facility] Last Admin: 07/20/22 21:42 Dose: 10 unit Insulin Human Lispro (Insulin Lispro 100 Unit/Ml 3 Ml Vial) 0 unit SUBCUT QIDACHS [facility]; Protocol Last Admin: 07/21/22 08:06 Dose: 6 unit Ondansetron HCl (Ondansetron Hcl 4 Mg/2 Ml Vial) 4 mg IVPUSH Q8H PRN PRN Reason: Nausea and Vomiting Pharmacy Consult (Consult Rx Perform Med Rec) 1 each MISCELLANE ONCE PRN PRN Reason: Consult order Sodium Chloride (0.9 % Sodium Chloride Flush 3 Ml Syringe) 3 ml IVFLUSH QSHIFT [facility] Last Admin: 07/21/22 08:06 Dose: 3 ml Allergies Allergies Allergy/AdvReac Type Severity Reaction Status Date / Time No Known Allergies Allergy Unverified 12/23/19 15:40 [No Known Allergies*] Assessment & Plan Assessment & Plan (1) Delirium due to medical condition without behavioral disturbance: Status: Acute Code(s): F05 - Delirium due to known physiological condition Assessment and Plan: No need for psych meds. Sister is already here and hopefully can work with the team to encourage patient to stay and complete medical workup. Plan This patient does have capacity to make medical and placement decisions despite mild short term memory deficits. She has a basic grasp of her medical history, her current situation and risks. Total time managing care of this patient today __60__ minutes.
[2022-07-21 11:40] VITALS: BP 138/62; PULSE 86; RESP 20; TEMP 36.4; O2SAT 96
[2022-07-21 11:44] LABS: Glucose, Whole Blood 296 mg/dL (60-115)
--- NOTE | 2022-07-21 11:53 | PM.CNCAR ---
History of Present Illness History of Present Illness Date of Service: 07/21/22 Requesting physician: Vicki Munoz Consult reason: atrial fibrillation Chief complaint: Afib rvr,hyperglycemia,uti Narrative: I was consulted to see Hugo in cardiology consultation today for management of atrial fibrillation possible heart failure. Patient 77-year-old female does noncompliant to medications. She stopped taking her diabetes medication because she says she was not feeling well on it. Came with marked hyperglycemia with pseudo hyponatremia and atrial fibrillation rapid ventricular response. She is also noted to have UTI. Chest x-ray finding consistent with heart failure and BNP was minimally elevated in the 1 teen range. Patient denies any shortness of breath on admission. Came to the hospital because she says she did not feel well. She was given some Cardizem. However difficult to obtain history from her, she has very poor historian. Currently at this point time denies any fast heart rate or palpitations. Denies any shortness of breath. Denies any chest pain. She is very adamant and wants to go home. 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 She says she does take Eliquis at home regularly. Review of Systems Constitutional: Constitutional: Denies body ache(s), Denies chills, Reports lethargy, Reports malaise and Reports weakness Eyes: Eyes: Reports no additional eye complaints ENT: Reports system reviewed and no additional complaints, except as documented Cardiovascular: Cardiovascular: Reports no additional cardiovascular complaints Respiratory: Respiratory: Reports no additional respiratory complaints Gastrointestinal: Gastrointestinal: Reports no additional gastrointestinal complaints Neurologic: Reports weakness PMFSH Past Medical History Medical History Atrial fibrillation Chronic anticoagulation History of uterine cancer HLD (hyperlipidemia) HTN (hypertension) Hypothyroidism Invasive ductal carcinoma of left breast Type 2 diabetes mellitus Surgical History Surgical History History of hysterectomy for cancer History of knee surgery History of lumpectomy of right breast (05/25/17) History of right breast biopsy Social History Social History Household Members: None Housing: House Do you presently have visiting nurse or other home services: Yes Alcohol intake: never Patient Tobacco Use Status: Never used Tobacco Use of substances other than those prescribed or required for medical reasons: No Currently Displaying Signs/Symptoms of Drug Intoxication Withdrawal: No Advance Directives: No Advance Directives Information Provided: No Do you have thoughts of harming others: None Do you have a plan to hurt others: No Plan Recently lost weight without trying: Unsure Patient : No Poor oral hygiene: No Meds Allergies Allergy/AdvReac Type Severity Reaction Status Date / Time No Known Allergies Allergy Unverified 12/23/19 15:40 [No Known Allergies*] Active Medications: Current Medications Acetaminophen (Acetaminophen 325 Mg Tablet) 650 mg PO Q6H PRN PRN Reason: Pain, Mild (Pain Scale 1-3) Last Admin: 07/20/22 22:12 Dose: 650 mg Apixaban (Apixaban 5 Mg Tablet) 5 mg PO BID [facility] Last Admin: 07/21/22 08:06 Dose: 5 mg Diltiazem HCl (Diltiazem Hcl 30 Mg Tablet) 30 mg PO QID [facility]; Protocol Last Admin: 07/21/22 08:06 Dose: 30 mg Furosemide (Furosemide 40 Mg/4 Ml Vial) 40 mg IVPUSH DAILY [facility]; Protocol Last Admin: 07/21/22 08:06 Dose: 40 mg Glucose (Glucose Gel 15 Gm Gel..Gram.) 15 gm PO Q15M PRN; Protocol PRN Reason: per Hypoglycemia Standing Ord. Ceftriaxone Sodium 1 gm/ (Sodium Chloride) 50 mls @ 100 mls/hr IV Q24H [facility] Stop: 07/24/22 19:24 Last Admin: 07/20/22 19:27 Dose: Not Given Dextrose (D10) 250 mls @ 750 mls/hr IV Q15M PRN; Protocol PRN Reason: per Hypoglycemia Standing Ord. Insulin Glargine (Insulin Glargine,Hum.Rec.Anlog 100 Unit/Ml 10 Ml Vial) 10 unit SUBCUT BEDTIME [facility] Last Admin: 07/20/22 21:42 Dose: 10 unit Insulin Human Lispro (Insulin Lispro 100 Unit/Ml 3 Ml Vial) 0 unit SUBCUT QIDACHS [facility]; Protocol Last Admin: 07/21/22 08:06 Dose: 6 unit Ondansetron HCl (Ondansetron Hcl 4 Mg/2 Ml Vial) 4 mg IVPUSH Q8H PRN PRN Reason: Nausea and Vomiting Pharmacy Consult (Consult Rx Perform Med Rec) 1 each MISCELLANE ONCE PRN PRN Reason: Consult order Sodium Chloride (0.9 % Sodium Chloride Flush 3 Ml Syringe) 3 ml IVFLUSH QSHIFT [facility] Last Admin: 07/21/22 08:06 Dose: 3 ml Home Medications Medication Instructions Recorded Confirmed Last Taken Type aspirin 81 mg tablet,delayed 81 mg PO DAILY 05/05/20 05/05/20 Unknown History release atenolol 25 mg tablet 12.5 mg PO BID 05/05/20 05/05/20 Unknown History atorvastatin 20 mg tablet 20 mg PO BEDTIME 05/05/20 05/05/20 Unknown History blood sugar diagnostic #10 ea 05/05/20 05/05/20 Unknown History enalapril maleate 20 mg tablet 20 mg PO QAM 05/05/20 05/05/20 Unknown History glipizide 10 mg tablet 10 mg PO BID 05/05/20 05/05/20 Unknown History glipizide 5 mg tablet 5 mg PO DAILY 05/05/20 05/05/20 Unknown History levothyroxine 112 mcg tablet 112 mcg PO DAILY 05/05/20 05/05/20 Unknown History multivitamin 1 tab PO DAILY 05/05/20 05/05/20 Unknown History Physical Exam Vital Signs: Vital Signs: Last Vital Signs Temp 97.6 F 07/21/22 11:40 Pulse 86 07/21/22 11:40 Resp 20 07/21/22 11:40 BP 138/62 07/21/22 11:40 Pulse Ox 96 07/21/22 11:40 O2 Del Method Room Air 07/21/22 11:40 BMI result Body Mass Index 43.6 Const: General: cooperative, comfortable, no acute distress, alert, awake and anxious Nutritional Appearance: obese Orientation/consciousness: patient oriented x3 HEENT: Head: Yes normocephalic and Yes atraumatic Neck: Neck: Yes trachea midline, Yes supple and Yes no JVD Resp: Effort & Inspection: decreased respiratory effort Auscultation: clear to auscultation bilaterally and no rales Cardio: Jugular venous distension: no JVD Rate: tachycardic Rhythm: abnormal rhythm irregularly irregular Heart sounds: S1 normal heart sound present, S2 normal heart sound present, no click, no gallops, no murmurs and no rubs Skin: General skin exam: no rashes or lesions noted Neuro: General: patient oriented x3 and no focal motor deficits Extrem: General: No clubbing, No cyanosis, No edema and Yes pedal edema Objective Labs and Meds 07/21/22 06:29 07/21/22 06:29 Lab results: Laboratory Results - last 24 hr 07/20/22 07/20/22 07/20/22 17:15 17:29 17:29 WBC 11.3 H RBC 5.61 H Hgb 16.1 H Hct 47.3 H MCV 84.3 MCH 28.7 MCHC 34.0 RDW 13.5 Plt Count 216 MPV 9.7 Immature Gran % (Auto) 0.8 H Neut % (Auto) 83.4 H Lymph % (Auto) 6.4 L Starke % (Auto) 9.0 Eos % (Auto) 0.1 Baso % (Auto) 0.3 Lymph # (Auto) 0.7 L Starke # (Auto) 1.0 Eos # (Auto) 0.0 Baso # (Auto) 0.0 Abs Immat Gran (auto) 0.09 H Absolute Neuts (auto) 9.4 H Absolute Nucleated RBC 0.000 Nucleated RBC % (auto) 0.0 Smear Tech's Comments PT INR APTT Sodium 133 L Potassium 4.7 Chloride 97 Carbon Dioxide 24 Anion Gap 17 BUN 28 H Creatinine 1.32 Estim Creat Clear Calc 37.6 Estimated GFR 39 POC Glucose 539 H* Random Glucose 574 H* Estimat Average Glucose Hemoglobin A1c % Lactic Acid Lactic Acid F/U @ 2Hr Lactic Acid F/U @ 4Hr Calcium 9.0 Magnesium 1.9 Total Bilirubin 0.9 Direct Bilirubin 0.3 AST 26 ALT 36 H Alkaline Phosphatase 112 Troponin I High Sens B-Natriuretic Peptide Total Protein 6.7 Albumin 3.7 Lipase 124 H TSH 9.18 H Free T4 1.30 Urine Color Urine Appearance Urine pH Ur Specific [place] Urine Protein Urine Glucose (UA) Urine Ketones Urine Blood Urine Nitrite Ur Leukocyte Esterase Urine RBC Urine WBC Ur Squamous Epith Cells Urine Bacteria Hyaline Casts Urine Yeast COVID-19 (DINORAH) COVID-19 Clin Com 07/20/22 07/20/22 07/20/22 17:29 17:29 17:29 WBC RBC Hgb Hct MCV MCH MCHC RDW Plt Count MPV Immature Gran % (Auto) Neut % (Auto) Lymph % (Auto) Starke % (Auto) Eos % (Auto) Baso % (Auto) Lymph # (Auto) Starke # (Auto) Eos # (Auto) Baso # (Auto) Abs Immat Gran (auto) Absolute Neuts (auto) Absolute Nucleated RBC Nucleated RBC % (auto) Smear Tech's Comments PT INR APTT Sodium Potassium Chloride Carbon Dioxide Anion Gap BUN Creatinine Estim Creat Clear Calc Estimated GFR POC Glucose Random Glucose Estimat Average Glucose Hemoglobin A1c % Lactic Acid Lactic Acid F/U @ 2Hr Lactic Acid F/U @ 4Hr Calcium Magnesium Total Bilirubin Direct Bilirubin AST ALT Alkaline Phosphatase Troponin I High Sens 17.6 H B-Natriuretic Peptide 115 H Total Protein Albumin Lipase TSH Free T4 Urine Color Urine Appearance Urine pH Ur Specific [place] Urine Protein Urine Glucose (UA) Urine Ketones Urine Blood Urine Nitrite Ur Leukocyte Esterase Urine RBC Urine WBC Ur Squamous Epith Cells Urine Bacteria Hyaline Casts Urine Yeast COVID-19 (DINORAH) Negative COVID-19 Clin Com See Note 07/20/22 07/20/22 07/20/22 17:29 17:31 18:15 WBC RBC Hgb Hct MCV MCH MCHC RDW Plt Count MPV Immature Gran % (Auto) Neut % (Auto) Lymph % (Auto) [place] % (Auto) Eos % (Auto) Baso % (Auto) Lymph # (Auto) Starke # (Auto) Eos # (Auto) Baso # (Auto) Abs Immat Gran (auto) Absolute Neuts (auto) Absolute Nucleated RBC Nucleated RBC % (auto) Smear Tech's Comments PT INR APTT Sodium Potassium Chloride Carbon Dioxide Anion Gap BUN Creatinine Estim Creat Clear Calc Estimated GFR POC Glucose Random Glucose Estimat Average Glucose TNP Hemoglobin A1c % > 14.0 Lactic Acid 2.3 H* Lactic Acid F/U @ 2Hr Lactic Acid F/U @ 4Hr Calcium Magnesium Total Bilirubin Direct Bilirubin AST ALT Alkaline Phosphatase Troponin I High Sens B-Natriuretic Peptide Total Protein Albumin Lipase TSH Free T4 Urine Color Yellow Urine Appearance Clear Urine pH 5.0 Ur Specific [place] >= 1.030 H Urine Protein 100 (2+) H Urine Glucose (UA) >=1000 H Urine Ketones 15 Urine Blood Small (1+) H Urine Nitrite Positive H Ur Leukocyte Esterase Negative Urine RBC 0-2 Urine WBC 21-50 H Ur Squamous Epith Cells 3-5 Urine Bacteria 4+ Hyaline Casts 0-2 Urine Yeast Present COVID-19 (DINORAH) COVID-19 Clin Com 07/20/22 07/20/22 07/20/22 18:15 18:27 19:38 WBC RBC Hgb Hct MCV MCH MCHC RDW Plt Count MPV Immature Gran % (Auto) Neut % (Auto) Lymph % (Auto) [place] % (Auto) Eos % (Auto) Baso % (Auto) Lymph # (Auto) Starke # (Auto) Eos # (Auto) Baso # (Auto) Abs Immat Gran (auto) Absolute Neuts (auto) Absolute Nucleated RBC Nucleated RBC % (auto) Smear Tech's Comments PT 12.5 INR 1.1 APTT 24.1 L Sodium Potassium Chloride Carbon Dioxide Anion Gap BUN Creatinine Estim Creat Clear Calc Estimated GFR POC Glucose 394 H* Random Glucose Estimat Average Glucose Hemoglobin A1c % Lactic Acid Lactic Acid F/U @ 2Hr Lactic Acid F/U @ 4Hr Calcium Magnesium Total Bilirubin Direct Bilirubin AST ALT Alkaline Phosphatase Troponin I High Sens 19.5 H B-Natriuretic Peptide Total Protein Albumin Lipase TSH Free T4 Urine Color Urine Appearance Urine pH Ur Specific [place] Urine Protein Urine Glucose (UA) Urine Ketones Urine Blood Urine Nitrite Ur Leukocyte Esterase Urine RBC Urine WBC Ur Squamous Epith Cells Urine Bacteria Hyaline Casts Urine Yeast COVID-19 (DINORAH) COVID-19 [employer] 07/20/22 07/20/22 07/20/22 20:24 21:08 21:12 WBC RBC Hgb Hct MCV MCH MCHC RDW Plt Count MPV Immature Gran % (Auto) Neut % (Auto) Lymph % (Auto) [place] % (Auto) Eos % (Auto) Baso % (Auto) Lymph # (Auto) [place] # (Auto) Eos # (Auto) Baso # (Auto) Abs Immat Gran (auto) Absolute Neuts (auto) Absolute Nucleated RBC Nucleated RBC % (auto) Smear Tech's Comments PT INR APTT Sodium Potassium Chloride Carbon Dioxide Anion Gap BUN Creatinine Estim Creat Clear Calc Estimated GFR POC Glucose 355 H* 428 H* Random Glucose Estimat Average Glucose Hemoglobin A1c % Lactic Acid Lactic Acid F/U @ 2Hr 2.1 H* Lactic Acid F/U @ 4Hr Calcium Magnesium Total Bilirubin Direct Bilirubin AST ALT Alkaline Phosphatase Troponin I High Sens B-Natriuretic Peptide Total Protein Albumin Lipase TSH Free T4 Urine Color Urine Appearance Urine pH Ur Specific [place] Urine Protein Urine Glucose (UA) Urine Ketones Urine Blood Urine Nitrite Ur Leukocyte Esterase Urine RBC Urine WBC Ur Squamous Epith Cells Urine Bacteria Hyaline Casts Urine Yeast COVID-19 (DINORAH) COVID-19 [employer] 07/20/22 07/21/22 07/21/22 23:27 06:29 06:29 WBC 11.9 H RBC 5.74 H Hgb 16.6 H Hct 49.1 H MCV 85.5 MCH 28.9 MCHC 33.8 RDW 13.8 Plt Count 197 MPV 10.0 Immature Gran % (Auto) 0.8 H Neut % (Auto) 80.5 H Lymph % (Auto) 8.5 L Starke % (Auto) 9.4 Eos % (Auto) 0.5 Baso % (Auto) 0.3 Lymph # (Auto) 1.0 L [place] # (Auto) 1.1 Eos # (Auto) 0.1 Baso # (Auto) 0.0 Abs Immat Gran (auto) 0.09 H Absolute Neuts (auto) 9.6 H Absolute Nucleated RBC 0.000 Nucleated RBC % (auto) 0.0 Smear Tech's Comments VERIFIED PT INR APTT Sodium 136 Potassium 3.5 D Chloride 99 Carbon Dioxide 25 Anion Gap 16 BUN 24 H Creatinine 1.00 Estim Creat Clear Calc 49.6 Estimated GFR 54 POC Glucose Random Glucose 267 H Estimat Average Glucose Hemoglobin A1c % Lactic Acid Lactic Acid F/U @ 2Hr Lactic Acid F/U @ 4Hr 2.9 H* Calcium 8.6 Magnesium Total Bilirubin Direct Bilirubin AST ALT Alkaline Phosphatase Troponin I High Sens B-Natriuretic Peptide Total Protein Albumin Lipase TSH Free T4 Urine Color Urine Appearance Urine pH Ur Specific [place] Urine Protein Urine Glucose (UA) Urine Ketones Urine Blood Urine Nitrite Ur Leukocyte Esterase Urine RBC Urine WBC Ur Squamous Epith Cells Urine Bacteria Hyaline Casts Urine Yeast COVID-19 (DINORAH) COVID-19 [employer] 07/21/22 07/21/22 07:14 11:39 WBC RBC Hgb Hct MCV MCH MCHC RDW Plt Count MPV Immature Gran % (Auto) Neut % (Auto) Lymph % (Auto) [place] % (Auto) Eos % (Auto) Baso % (Auto) Lymph # (Auto) [place] # (Auto) Eos # (Auto) Baso # (Auto) Abs Immat Gran (auto) Absolute Neuts (auto) Absolute Nucleated RBC Nucleated RBC % (auto) Smear Tech's Comments PT INR APTT Sodium Potassium Chloride Carbon Dioxide Anion Gap BUN Creatinine Estim Creat Clear Calc Estimated GFR POC Glucose 297 H 296 H Random Glucose Estimat Average Glucose Hemoglobin A1c % Lactic Acid Lactic Acid F/U @ 2Hr Lactic Acid F/U @ 4Hr Calcium Magnesium Total Bilirubin Direct Bilirubin AST ALT Alkaline Phosphatase Troponin I High Sens B-Natriuretic Peptide Total Protein Albumin Lipase TSH Free T4 Urine Color Urine Appearance Urine pH Ur Specific [place] Urine Protein Urine Glucose (UA) Urine Ketones Urine Blood Urine Nitrite Ur Leukocyte Esterase Urine RBC Urine WBC Ur Squamous Epith Cells Urine Bacteria Hyaline Casts Urine Yeast COVID-19 (DINORAH) COVID-19 Clin Com EKG shows atrial fibrillation rapid ventricular response with PVC with nonspecific ST T wave changes Imaging Radiologist's impression: Impressions Chest X-Ray 07/20/22 17:38 IMPRESSION: CHF as above. Assessment and Plan (1) Atrial fibrillation with rapid ventricular response: Status: Acute Atrial fibrillation with rapid ventricular response, not adequate rate control. Home on atenolol 12.5 mg b.i.d.. Remains rapid most likely due to acute medical illness and acute atrial fibrillation. Unsure if she has chronic persistent atrial fibrillation versus paroxysmal atrial fibrillation. She is very adamant on going home. Difficulty and risk associated with premature discharge were discussed with her. She is absolutely adamant that she would sign against medical advise. Will continue oral anticoagulation with Eliquis 5 mg b.i.d.. Would consider IV Cardizem drip for rate control although if she is going against medical advise could get metoprolol 50 mg b.i.d. in follow-up with her PCP with outpatient Holter monitor. (2) CHF (congestive heart failure): Status: Acute CHF on radiography examination on admission, clinically currently does not appear to be in overt heart failure. Could be due to diuresis. BNP was minimally elevated. Will require echocardiogram at some point time can be done as outpatient. Continue better rate control. Dangers of recurrent heart failure were discussed with her. Patient willing to sign out against medical advise. Time Spent With Patient Time: Total time managing care of this patient today ____ minutes. Procedures Date of Service Date of Service: 07/21/22
--- NOTE | 2022-07-21 13:54 | PM.DS ---
DS: Providers Provider Date of Service: 07/21/22 Date of admission: 07/20/22 18:43 Date of discharge: 07/21/22 Primary care physician: Oral Beasley MD Admitting clinician: Vicki Munoz Attending physician on admission: Bryce Elena Consults: 07/20/22 18:43 Consult to Cardiology Routine Consulting Provider: [facility] Reason for consultation: afib rvr, new onset chf Has provider been notified: Yes 07/21/22 06:36 Consult to Psychiatry Routine Consulting Provider: Psych Covering Reason for consultation: paranoid 07/21/22 08:32 Consult to Psychiatry Stat Consulting Provider: Psych Covering Reason for consultation: paranoia, capacity eval. wants to leave [facility]- has been noncompliant -> adm Attending physician on discharge: [facility] Discharging clinician: Vicki Munoz DS: Diagnosis Discharge Diagnosis (1) Atrial fibrillation with rapid ventricular response: Status: Resolved (2) CHF (congestive heart failure): Status: Inactive DS: Summary Hospital Course Hospital Course: HPI on admission 07/19: Chief Complaint: hyperglycemia, feeling unwell 77-year-old female with hypothyroidism, llw-[id number] type 2 diabetes, hypertension, hyperlipidemia, paroxysmal atrial fibrillation anticoagulated with Eliquis, history of invasive ductal carcinoma of the breast, and history of uterine cancer presented to the ED earlier today via EMS for management of hyperglycemia.? The patient is not the best historian but tells me that her diabetes medications had been making her feel unwell like her sugar was low but when she would check her sugar, her sugars were elevated so she felt that her monitor was not working and stop testing her sugars altogether.? She also stopped taking her glipizide and metformin though she states she continues to feel unwell but does not elaborate on symptoms.? She denies any fevers, chills, abdominal pain, nausea, vomiting, diarrhea, constipation.? She has also been recently diagnosed with atrial fibrillation and is unclear if she has been taking the remainder of her medications.? Her daughter tells me that the patient lives? on her own and she has been calling frequent wellness checks on her mother and she also has a VNA nurse M-F. The patient has been canceling doctors appointments including the initial visit with her tool profiling machine set up operator. She denies any palpiations,? lightheadedness, headaches, shortness of breath, orthopnea, PND, or chest pain.? She has noted increased swelling in the bilateral lower legs it has been ongoing for several days. On arrival, patient tachycardic to 140, tachypneic to 30, hypertensive to 166/122.? No hypoxia.? Mild leukocytosis of 11.3.? Renal function normal.? Sodium 133 likely? pseudo hyponatremia in the setting of hyperglycemia with glucose on arrival 578.? Remaining electrolytes within normal limits. ? Anion gap closed. Lactic acid 2.3.? Troponin 17.6, BNP 115.? EKG showing atrial fibrillation with RVR and PVCs or aberrant conducted complexes, rate 112.? Urinalysis with negative? leukocytes, positive nitrites, 1+ blood, significant glucose, positive urinary sediment, 4+ ? Bacteria.? Chest x-ray showing CHF with mild cardiomegaly and small pleural effusions left greater than right. ?In the ED, given 10 units regular insulin with improvement in glucose to 394.? Also given 20 mg push Cardizem followed by 30 mg p.o. Cardizem with improvement in heart rate to 75.? She was also given 1 L IV NS and 1 g ceftriaxone. Hospital course: Pt admitted to teleetry for management of atrial fibrillation with RVR. She was transitioned to PO diltiazem 30mg QID with some improvement in heart rate, but continued with intermittent tachycardia. She was otherwise hemodynamically stable during admission, no hypotension. She diuresed well with IV lasix with clinical improvement in edema and lung sounds. She did also have positive urinalysis on admission and has been treated with ceftriaxone though urine culture remains pending. Unfortunately patient has been adamant about leaving. Significant efforts were made to advise against leaving against medical advise. She was evaluated by psychiatry who found the patient to have capacity to make medical and placement dcisions despite mild short term memory deficits. She has a basic grasp of her medical history, her current situation and risks. The patient was also seen and evaluated by cardiology who counseled patient against premature discharge as did this author. She was counseled on the risks of recurrent decompensated heart failure and risk of uncontrolled atrial fibrillation with RVR including stroke, hypotension, cardiomyopathy, lightheadedness/syncope, and . Unfortuantely echocardiogram could not be obtained due to patient refusal. However, did discuss cardiology recommendations with patient. Atenolol should be discontinue and metoprolol 50mg BID should be initiated. She will continue on eliquis 5mg BID and is started on furosemide 20mg daily. She will be discharged on cefuroxime 500mg BID for management of UTI. Counseled on compliance with diabetes medications and diabetic diet. Glucose levels improved with 10 units lantus and humalog on sliding scale, Hgb A1c above detectable limits at >14.0%. She is advised to resume her metformin and glipizide at higher doses. Advised to follow up with PCP and cardiology outpatient for further work up including holter monitor and echocardiogram. Noted to have Polycythemia. evaluated by oncologist who has concerns over recurrence of cancer. patient refused to do more images of CT chest & Abd, brain MRI stating even if she has something she doesnt want to know. i discussed these findings with her HCP. advised to follow with dr Pearson for further work up if she changes her mind. Advised to return to the ED for any recurrent or worsening symptoms. Status at Discharge Functional status at discharge: independent ambulation Overall status at discharge: patient is back to baseline Time Spent with Patient Time attestation: Total time managing care of this patient today ____ minutes. Discharge coordination time: Greater than 30 minutes Quality: Safe Use of Opioids Does Pt have an Active Cancer Diagnosis on the Problem List?: No Quality: Stroke Does the patient have a stroke diagnosis?: No Physical Exam Vital Signs: Vital Signs: Last Vital Signs Temp 97.6 F 07/21/22 11:40 Pulse 86 07/21/22 11:40 Resp 20 07/21/22 11:40 BP 138/62 07/21/22 11:40 Pulse Ox 96 07/21/22 11:40 O2 Del Method Room Air 07/21/22 11:40 BMI result Body Mass Index 43.6 Constitutional - Awake and Alert, No apparent distress Eyes - PERRLA, EOMI Cardiovascular - S1S2, RRR, 2+ edema BLE Respiratory - Normal lung expansion, Normal respiratory effort, No respiratory distress, faint bibasilar crackles Gastrointestinal - NT / ND; +BS; No rebound or guarding Extremities - no calf tenderness bilaterally, no swelling Skin - Warm/Dry Neurological - Alert & oriented x3 Psychological - Appropriate affect DS: Data Data Completed and Pending Labs on day of discharge: Laboratory Results - last 24 hr 07/20/22 07/20/22 07/20/22 17:15 17:29 17:29 WBC 11.3 H RBC 5.61 H Hgb 16.1 H Hct 47.3 H MCV 84.3 MCH 28.7 MCHC 34.0 RDW 13.5 Plt Count 216 MPV 9.7 Immature Gran % (Auto) 0.8 H Neut % (Auto) 83.4 H Lymph % (Auto) 6.4 L Trego % (Auto) 9.0 Eos % (Auto) 0.1 Baso % (Auto) 0.3 Lymph # (Auto) 0.7 L [place] # (Auto) 1.0 Eos # (Auto) 0.0 Baso # (Auto) 0.0 Abs Immat Gran (auto) 0.09 H Absolute Neuts (auto) 9.4 H Absolute Nucleated RBC 0.000 Nucleated RBC % (auto) 0.0 Smear Tech's Comments PT INR APTT Sodium 133 L Potassium 4.7 Chloride 97 Carbon Dioxide 24 Anion Gap 17 BUN 28 H Creatinine 1.32 Estim Creat Clear Calc 37.6 Estimated GFR 39 POC Glucose 539 H* Random Glucose 574 H* Estimat Average Glucose Hemoglobin A1c % Lactic Acid Lactic Acid F/U @ 2Hr Lactic Acid F/U @ 4Hr Calcium 9.0 Magnesium 1.9 Total Bilirubin 0.9 Direct Bilirubin 0.3 AST 26 ALT 36 H Alkaline Phosphatase 112 Troponin I High Sens B-Natriuretic Peptide Total Protein 6.7 Albumin 3.7 Lipase 124 H TSH 9.18 H Free T4 1.30 Urine Color Urine Appearance Urine pH Ur Specific [place] Urine Protein Urine Glucose (UA) Urine Ketones Urine Blood Urine Nitrite Ur Leukocyte Esterase Urine RBC Urine WBC Ur Squamous Epith Cells Urine Bacteria Hyaline Casts Urine Yeast COVID-19 (DINORAH) COVID-19 Clin Com 07/20/22 07/20/22 07/20/22 17:29 17:29 17:29 WBC RBC Hgb Hct MCV MCH MCHC RDW Plt Count MPV Immature Gran % (Auto) Neut % (Auto) Lymph % (Auto) Treg[place] % (Auto) Eos % (Auto) Baso % (Auto) Lymph # (Auto) Treg[place] # (Auto) Eos # (Auto) Baso # (Auto) Abs Immat Gran (auto) Absolute Neuts (auto) Absolute Nucleated RBC Nucleated RBC % (auto) Smear Tech's Comments PT INR APTT Sodium Potassium Chloride Carbon Dioxide Anion Gap BUN Creatinine Estim Creat Clear Calc Estimated GFR POC Glucose Random Glucose Estimat Average Glucose Hemoglobin A1c % Lactic Acid Lactic Acid F/U @ 2Hr Lactic Acid F/U @ 4Hr Calcium Magnesium Total Bilirubin Direct Bilirubin AST ALT Alkaline Phosphatase Troponin I High Sens 17.6 H B-Natriuretic Peptide 115 H Total Protein Albumin Lipase TSH Free T4 Urine Color Urine Appearance Urine pH Ur Specific [place] Urine Protein Urine Glucose (UA) Urine Ketones Urine Blood Urine Nitrite Ur Leukocyte Esterase Urine RBC Urine WBC Ur Squamous Epith Cells Urine Bacteria Hyaline Casts Urine Yeast COVID-19 (DINORAH) Negative buuteeq See Note 07/20/22 07/20/22 07/20/22 17:29 17:31 18:15 WBC RBC Hgb Hct MCV MCH MCHC RDW Plt Count MPV Immature Gran % (Auto) Neut % (Auto) Lymph % (Auto) Treg[place] % (Auto) Eos % (Auto) Baso % (Auto) Lymph # (Auto) Treg[place] # (Auto) Eos # (Auto) Baso # (Auto) Abs Immat Gran (auto) Absolute Neuts (auto) Absolute Nucleated RBC Nucleated RBC % (auto) Smear Tech's Comments PT INR APTT Sodium Potassium Chloride Carbon Dioxide Anion Gap BUN Creatinine Estim Creat Clear Calc Estimated GFR POC Glucose Random Glucose Estimat Average Glucose TNP Hemoglobin A1c % > 14.0 Lactic Acid 2.3 H* Lactic Acid F/U @ 2Hr Lactic Acid F/U @ 4Hr Calcium Magnesium Total Bilirubin Direct Bilirubin AST ALT Alkaline Phosphatase Troponin I High Sens B-Natriuretic Peptide Total Protein Albumin Lipase TSH Free T4 Urine Color Yellow Urine Appearance Clear Urine pH 5.0 Ur Specific [place] >= 1.030 H Urine Protein 100 (2+) H Urine Glucose (UA) >=1000 H Urine Ketones 15 Urine Blood Small (1+) H Urine Nitrite Positive H Ur Leukocyte Esterase Negative Urine RBC 0-2 Urine WBC 21-50 H Ur Squamous Epith Cells 3-5 Urine Bacteria 4+ Hyaline Casts 0-2 Urine Yeast Present COVID-19 (DINORAH) buuteeq 07/20/22 07/20/22 07/20/22 18:15 18:27 19:38 WBC RBC Hgb Hct MCV MCH MCHC RDW Plt Count MPV Immature Gran % (Auto) Neut % (Auto) Lymph % (Auto) Treg[place] % (Auto) Eos % (Auto) Baso % (Auto) Lymph # (Auto) Treg[place] # (Auto) Eos # (Auto) Baso # (Auto) Abs Immat Gran (auto) Absolute Neuts (auto) Absolute Nucleated RBC Nucleated RBC % (auto) Smear Tech's Comments PT 12.5 INR 1.1 APTT 24.1 L Sodium Potassium Chloride Carbon Dioxide Anion Gap BUN Creatinine Estim Creat Clear Calc Estimated GFR POC Glucose 394 H* Random Glucose Estimat Average Glucose Hemoglobin A1c % Lactic Acid Lactic Acid F/U @ 2Hr Lactic Acid F/U @ 4Hr Calcium Magnesium Total Bilirubin Direct Bilirubin AST ALT Alkaline Phosphatase Troponin I High Sens 19.5 H B-Natriuretic Peptide Total Protein Albumin Lipase TSH Free T4 Urine Color Urine Appearance Urine pH Ur Specific [place] Urine Protein Urine Glucose (UA) Urine Ketones Urine Blood Urine Nitrite Ur Leukocyte Esterase Urine RBC Urine WBC Ur Squamous Epith Cells Urine Bacteria Hyaline Casts Urine Yeast COVID-19 (DINORAH) COVID-19 TurboHeads 07/20/22 07/20/22 07/20/22 20:24 21:08 21:12 WBC RBC Hgb Hct MCV MCH MCHC RDW Plt Count MPV Immature Gran % (Auto) Neut % (Auto) Lymph % (Auto) Treg[place] % (Auto) Eos % (Auto) Baso % (Auto) Lymph # (Auto) Treg[place] # (Auto) Eos # (Auto) Baso # (Auto) Abs Immat Gran (auto) Absolute Neuts (auto) Absolute Nucleated RBC Nucleated RBC % (auto) Smear Tech's Comments PT INR APTT Sodium Potassium Chloride Carbon Dioxide Anion Gap BUN Creatinine Estim Creat Clear Calc Estimated GFR POC Glucose 355 H* 428 H* Random Glucose Estimat Average Glucose Hemoglobin A1c % Lactic Acid Lactic Acid F/U @ 2Hr 2.1 H* Lactic Acid F/U @ 4Hr Calcium Magnesium Total Bilirubin Direct Bilirubin AST ALT Alkaline Phosphatase Troponin I High Sens B-Natriuretic Peptide Total Protein Albumin Lipase TSH Free T4 Urine Color Urine Appearance Urine pH Ur Specific [place] Urine Protein Urine Glucose (UA) Urine Ketones Urine Blood Urine Nitrite Ur Leukocyte Esterase Urine RBC Urine WBC Ur Squamous Epith Cells Urine Bacteria Hyaline Casts Urine Yeast COVID-19 (DINORAH) COVID-19 TurboHeads 07/20/22 07/21/22 07/21/22 23:27 06:29 06:29 WBC 11.9 H RBC 5.74 H Hgb 16.6 H Hct 49.1 H MCV 85.5 MCH 28.9 MCHC 33.8 RDW 13.8 Plt Count 197 MPV 10.0 Immature Gran % (Auto) 0.8 H Neut % (Auto) 80.5 H Lymph % (Auto) 8.5 L Treg[place] % (Auto) 9.4 Eos % (Auto) 0.5 Baso % (Auto) 0.3 Lymph # (Auto) 1.0 L [place] # (Auto) 1.1 Eos # (Auto) 0.1 Baso # (Auto) 0.0 Abs Immat Gran (auto) 0.09 H Absolute Neuts (auto) 9.6 H Absolute Nucleated RBC 0.000 Nucleated RBC % (auto) 0.0 Smear Tech's Comments VERIFIED PT INR APTT Sodium 136 Potassium 3.5 D Chloride 99 Carbon Dioxide 25 Anion Gap 16 BUN 24 H Creatinine 1.00 Estim Creat Clear Calc 49.6 Estimated GFR 54 POC Glucose Random Glucose 267 H Estimat Average Glucose Hemoglobin A1c % Lactic Acid Lactic Acid F/U @ 2Hr Lactic Acid F/U @ 4Hr 2.9 H* Calcium 8.6 Magnesium Total Bilirubin Direct Bilirubin AST ALT Alkaline Phosphatase Troponin I High Sens B-Natriuretic Peptide Total Protein Albumin Lipase TSH Free T4 Urine Color Urine Appearance Urine pH Ur Specific [place] Urine Protein Urine Glucose (UA) Urine Ketones Urine Blood Urine Nitrite Ur Leukocyte Esterase Urine RBC Urine WBC Ur Squamous Epith Cells Urine Bacteria Hyaline Casts Urine Yeast COVID-19 (DINORAH) COVID-19 Clin Com 07/21/22 07/21/22 07:14 11:39 WBC RBC Hgb Hct MCV MCH MCHC RDW Plt Count MPV Immature Gran % (Auto) Neut % (Auto) Lymph % (Auto) [place] % (Auto) Eos % (Auto) Baso % (Auto) Lymph # (Auto) [place] # (Auto) Eos # (Auto) Baso # (Auto) Abs Immat Gran (auto) Absolute Neuts (auto) Absolute Nucleated RBC Nucleated RBC % (auto) Smear Tech's Comments PT INR APTT Sodium Potassium Chloride Carbon Dioxide Anion Gap BUN Creatinine Estim Creat Clear Calc Estimated GFR POC Glucose 297 H 296 H Random Glucose Estimat Average Glucose Hemoglobin A1c % Lactic Acid Lactic Acid F/U @ 2Hr Lactic Acid F/U @ 4Hr Calcium Magnesium Total Bilirubin Direct Bilirubin AST ALT Alkaline Phosphatase Troponin I High Sens B-Natriuretic Peptide Total Protein Albumin Lipase TSH Free T4 Urine Color Urine Appearance Urine pH Ur Specific [place] Urine Protein Urine Glucose (UA) Urine Ketones Urine Blood Urine Nitrite Ur Leukocyte Esterase Urine RBC Urine WBC Ur Squamous Epith Cells Urine Bacteria Hyaline Casts Urine Yeast COVID-19 (DINORAH) COVID-19 Clin Com Preliminary micro results at discharge 07/20/22 Unknown Urine Culture - Preliminary Urine clean catch - Urine acstellanos top Culture in progress. Discharge Plan Discharge Anticipated Discharge Date/Time: 07/21/22 13:13 Patient Disposition: Home Health Service Discharge Diagnosis: atrial fibrillation with RVR, congestive heart failure, UTI Referrals: [facility] [Other] - 1 Day (KHURRAM [phone] WILL SEE YOU ON FRIDAY MORNING. ) [facility] [Outside] - 3-5 Days (A REFERRAL HAS BEEN PLACED FOR YOU TO BE EVALUATED FOR HOME HEALTH/DERMATOLOGY SPECIALIST SERVICES, SOMEONE FROM [facility] WILL BE IN CONTACT.) Name,MD Oral [Primary Care Provider] - 1 Week Discharge Medications: New metoprolol tartrate 50 mg tablet 50 mg PO BID Qty: 60 0RF cefuroxime axetil 500 mg tablet 500 mg PO BID Qty: 10 0RF Rx Instructions: END DATE: 07/30/22 furosemide 20 mg tablet 20 mg PO DAILY Qty: 30 0RF (DME) blood-glucose meter [FreeStyle Lite Meter] Kit See Rx Instructions .Route Qty: 1 0RF Rx Instructions: As directed (DME) FreeStyle Test Strip See Rx Instructions .Route Qty: 100 0RF Rx Instructions: BID (DME) lancets [FreeStyle Lancets] 28 gauge misc See Rx Instructions .Route Qty: 100 0RF Rx Instructions: As directed metformin 850 mg Tablet 850 mg PO BIDWM Qty: 60 2RF Continued Eliquis 5 mg tablet 5 mg PO BID enalapril maleate 20 mg tablet 20 mg PO DAILY levothyroxine 112 mcg tablet 112 mcg PO DAILY@0600 atorvastatin 20 mg tablet 20 mg PO BEDTIME multivitamin Tablet 1 tab PO DAILY (DME) blood sugar diagnostic Strip See Rx Instructions .ROUTE QID Qty: 10 Rx Instructions: As directed aspirin 81 mg tablet,delayed release (DR/EC) 81 mg PO DAILY Discontinued metformin 500 mg tablet 500 mg PO BID atenolol 25 mg tablet 12.5 mg PO BID glipizide 5 mg tablet 5 mg PO DAILY glipizide 10 mg tablet 10 mg PO BID atenolol 25 mg tablet 12.5 mg PO BID No Action glipizide 10 mg tablet 10 mg PO DAILY CeraVe Cream 1 appl topical NEEDED PRN (Reason: Dry Skin) Discharge Orders: Discharge Order (Routine); Ordered 07/25/22 Ordered By: Tamera Beavers Diet: Diabetic diet Activity on Discharge: As tolerated Stand Alone Forms: Patient Portal Discharge page Care Plan Goals: Manage heart rate Diabetes medication and diet compliance Prevent decompensation from uncontrolled atrial fibrillation and congestive heart failure Health Concerns: Medication noncompliance Atrial fibrillation with rapid rate Congestive heart failure UTI Plan of Treatment: You are leaving AGAINST MEDICAL ADVICE. Your heart rate is not controlled and places you at increased risk for stroke, syncope/lightheadedness, weakened heart muscle, decompensated heart failure, . Return to the ED immediately should your symptoms worsen Atrial fibrillation -STOP taking atenolol. Instead, start metoprolol 50mg twice daily -continue eliquis twice daily to prevent stroke -You will need to follow up with your PCP and a tool profiling machine set up operator SALEEM for further management and monitoring with a holter monitor and echocardiogram Congestive heart failure -This was diagnosed clinically as you refused doing echocardiogram -Clinically symptoms have improved with diuresis -Continue to take furosemide 20mg daily -Follow up as above Hyperglycemia with uncontrolled diabetes -Your A1c is above measurable limits of 14.0% due to medication noncompliance. -Resume metformin and glipizide as prescribed by your PCP to better control your glucose levels and prevent serious complications -Follow diabetic diet Urine infection -cefuroxime 500mg twice daily x 5 days Elevated hemoglobin level -will need to follow up with dr Pearson for further work up Assessment: as above Discharge Date/Time: 07/25/22 15:27
[2022-07-21] MEDS: Acetaminophen 325 MG TABLET 650 MG PO (14:24)
--- NOTE | 2022-07-21 14:57 | MHC.CM.PN ---
PT REPORTS SHE LIVES ALONE AND IS INDEPENDENT WITH CARE SHE SAYS THE VNA COMES Q DAY TO DO HER BP AND VS SHE DOES NOT KNOW THE NAME PCP: SUSIE NAME SAIMA VERAX + SHE SAYS HER DTR IS HER HCP, COPY REQUESTED IMM DELIVERED, SENT TO MEDICAL RECORDS, NO CHART AVAILABLE DCP: PT REPORTS SHE IS GOING HOME TODAY EVEN IF IT HAS TO BE AMA SHE SAYS SHE WILL TRY TO CALL HER DAUGHTER FOR TRANSPORT
--- NOTE | 2022-07-21 15:11 | PHA.MEDREC ---
Addendum entered by Violeta Rollins RPh 07/22/22 07:29: Patient still here, med rec done based on claim history Original Note: Pharmacy Consult ? Medication Reconciliation Pharmacy has not completed the medication reconciliation. patient is requesting to leave. Unable to verify her current and up to date medication list. When I spoke with the patient she was unsure which medications were recently discontinued, not allowing me to feel confident in confirming any of them. I tried calling her daughter (the only contact on file), it was a false phone number and when I asked patient and her sister, they did not know who nedra was (which was the name on her contact). I asked about a visiting nurse that helps her at home and they said she lives by herself and takes care of herself leaving me no one to contact to confirm her medications.
[2022-07-21 16:00] VITALS: BP 125/59; PULSE 76; RESP 13; TEMP 36.7; O2SAT 94
[2022-07-21 17:00] LABS: Glucose, Whole Blood 213 mg/dL (60-115)
[2022-07-21] MEDS: cefTRIAXone sodium 1 GM in 0.9 % Sodium Chloride 50 ML IV (18:12)
[2022-07-21 22:06] LABS: Glucose, Whole Blood 234 mg/dL (60-115)
--- NOTE | 2022-07-22 01:00 | PC.NURSE ---
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
--- NOTE | 2022-07-22 01:31 | PC.NURSE ---
Assumed care at 11 AM. Patient Frisian speaking only, was communicated with in Jordanian. Patient with POC very high: 400's for lunch and dinner; MD notified, new orders for 5 SQ lispro in addition to 10 SLiding scale for lunch, then 10 SQ insulin per sliding scale plus 10 IV regular insulin for dinner also 10 U lantus SQ starting at HS. MD to hold IV solumedrol; then POC 372 at bedtime, 10 U at sliding scale at that time. Patient compliant, pleasant. Patient ate well, 2 assist to stand and pivot, to wheelchair, to BR or commode. Uses 2 lPM oxygen. No respiratory distress. LS dim at bases. c/o right elbow pain, mild bruising. Patient given 10 mg PRN oxycodone per emar. Patient had peaked t-waves on telemetry, EKG and serum Mg and K checked per , WNL.
--- NOTE | 2022-07-22 01:37 | PM.EVENT ---
Event Note Date of Service: 07/22/22 Event Note: Ambulance arrived at 01:30 to take the patient. Patient is shouting, yelling and abusing the nursing staff and paramedics. She is not with it and does not have the capacity to go home and live by herself. She does not know where she is and currently it is unsafe to let her go AMA. She is only oriented to her name, disoriented to time and place. Time Spent With Patient Time: Total time managing care of this patient today ____ minutes.
--- NOTE | 2022-07-22 01:37 | PC.NURSE ---
Assumed care at 11 am. Patient was at that time alert, oriented x4, insistent that she was leaving no matter what, and used words against medical advice. Discussd with PA, and the psychiatrist had already been consulted and determined patient competent. PA to bedside to assess and educate the patient, and discharge completed under circumstances, with medications sent and instructions printed and reviewed [facility] patient. Patient then compliant all day, following instructions, interacting appropirately. Telesitter in use, chair alarm, but cooperative. Patient was notably forgetful, when educated about medications and discharge instructions patient could do teachback and asked questions that showed engagement. Patient had no ride home despite PA having discharged, and patient signing AMA paperwork. Discussed with case management coordinator and nursing supervisors, options for rides limited, patient lives home alone. Discussed with hemant's daughter, who lives an hour away and reports her own medical issues are preventing her from being present. Patient heard shouting over phone at her daughter often through evening. [facility] contacted and case reviewed, and per dispatch her ride would be covered per insurance despite AMA status and this would facilitate getting patient into her one-story house. Patient excited to be going home, and complying to be picked up at 6:30-7 pm per arcadia. Patient was prepared for leaving, IV removed, placed in street clothes. Then ambulance delayed repeatedly--to arrival 22:30; then to arrival 23:30-00:00; then ambulance here at 01:00, patient in fulminant distress in hallway with multiple staff assisting to calm her, Discharge was now canceled and night time staff assisting. Patient had initially been educated to take home evening doses of medications, but due to delay in ambulance arrival, patient was offered her evening doses, and refused all. MD notified. Also discussed situation with MD and concern about patient's sun-downing and declining awareness through evening being a safety issue.
[2022-07-22] MEDS: OLANZapine 10 MG VIAL IM (01:47)
[2022-07-22] MEDS: Haloperidol Lactate 5 MG/ML VIAL 2.5 MG IM (02:55)
[2022-07-22 06:33] LABS: MANUAL DIFF FLAG NO
[2022-07-22 06:40] LABS: Basophils Percent Auto 0.3 % (0-2); Eosinophils Absolute Auto 0.1 X10*3/uL (0.0-0.4); Eosinophils Percent Auto 0.5 % (0-4); Hematocrit 49.9 % (37.0-47.0); Hemoglobin 16.7 g/dl (12.0-16.0); Imm Gran Abs Auto 0.08 X10*3/uL (0.00-0.03); Imm Gran Pct Auto 0.7 % (0.0-0.4); Lymphocytes Absolute Auto 0.8 X10*3/uL (1.2-4.9); Lymphocytes Percent Auto 6.4 % (20-40); Mean Corpuscular HGB Conc 33.5 g/dl (31.0-35.0); Mean Corpuscular Hemoglobin 28.6 pg (27.0-33.0); Mean Corpuscular Volume 85.6 fL (80.0-98.0); Mean Platelet Volume 9.8 fL (9.4-12.3); Monocytes Percent Auto 8.2 % (2-11); Neutrophils Absolute Auto 10.3 x10*3/uL (2.0-8.3); Neutrophils Percent Auto 83.9 % (45-73); Platelet Count 169 X10*3/uL (160-400); Red Blood Count 5.83 X10*6/uL (4.20-5.50); Red Cell Distribution Width 13.7 % (11.0-16.0); White Blood Count 12.3 X10*3/uL (4.8-10.8)
[2022-07-22 07:12] LABS: Anion Gap 15 (12-20); Blood Urea Nitrogen 24 mg/dL (9-16); Calcium 8.4 mg/dL (8.4-10.2); Carbon Dioxide 25 mmol/L (22-29); Chloride 101 mmol/L (96-108); Creatinine Clr Calc Pharmacy 61.2; Estimated Glomerular Filt Rate > 60; Glucose Random 126 mg/dL (60-115); Potassium 3.2 mmol/L (3.3-5.1); Sodium 138 mmol/L (135-145)
--- NOTE | 2022-07-22 07:54 | PC.NURSE ---
Updated daughter Dori that patient was not discharged.
[2022-07-22 08:56] LABS: Glucose, Whole Blood 124 mg/dL (60-115)
--- NOTE | 2022-07-22 09:03 | P.PNIM_ITS ---
Subjective Subjective Date of Service: 07/22/22 Interval History: Seen in follow up for afib with rvr, CHF, UTI Interval history: Pt adamant about leaving AMA yesterday during the day, found to have capacity by psychiatry. However, EMS did not arrive until 1 am to take pt home and at that time patient very aggitated, yelling, scratching nurses, refusing to get on stretcher. Evaluated by disability services coordinator and deemed not to have capacity. required 10mg zyprexa and 2.5mg haldol and eventually settled, now sleeping, respirations unlabored. Tele monitor reattached showing afib rate 80s- 90s, still refusing vitals, po meds, echo this morning. Upon my exam, patient sleeping but very aggitated when awoken, aggitated, not answering questions, yelling. Addendum: Pt continues to refuse vitals, but is resting comfortably unless awoken and becomes aggitated. Does have tele monitor on reading afib but controlled rate 80s-90s. NPO given AMS. ?related to infection Review of Systems Review of Systems: Yes Unobtainable due to mental status Physical Exam Vital Signs: Vital Signs: Last Vital Signs Temp 98.1 F 07/21/22 16:00 Pulse 76 07/21/22 16:00 Resp 13 07/21/22 16:00 BP 125/59 L 07/21/22 16:00 Pulse Ox 94 07/21/22 16:00 O2 Del Method Room Air 07/21/22 16:00 BMI result Body Mass Index 43.6 Constitutional - somnolent but arousable, agitated Eyes - PERRLA Cardiovascular - S1S2, irregularly irregular, rate normal Neurological - somnolent but arousable, disoriented, agitated, not responding to questions Unable to further examine at this time Objective Data Active Medications Acetaminophen (Acetaminophen 325 Mg Tablet) 650 mg PO Q6H PRN PRN Reason: Pain, Mild (Pain Scale 1-3) Last Admin: 07/21/22 14:24 Dose: 650 mg Documented By: SETH Apixaban (Apixaban 5 Mg Tablet) 5 mg PO BID ANTONIO Last Admin: 07/21/22 22:08 Dose: Not Given Documented By: SETH Non-Admin Reason: Patient Refused Furosemide (Furosemide 40 Mg/4 Ml Vial) 40 mg IVPUSH DAILY [facility]; Protocol Last Admin: 07/21/22 08:06 Dose: 40 mg Documented By: CARINE Glucose (Glucose Gel 15 Gm Gel..Gram.) 15 gm PO Q15M PRN; Protocol PRN Reason: per Hypoglycemia Standing Ord. Ceftriaxone Sodium 1 gm/ (Sodium Chloride) 50 mls @ 100 mls/hr IV Q24H [facility] Stop: 07/24/22 19:24 Last Infusion: 07/21/22 20:02 Dose: 0 mls/hr Documented By: SETH Dextrose (D10) 250 mls @ 750 mls/hr IV Q15M PRN; Protocol PRN Reason: per Hypoglycemia Standing Ord. Insulin Glargine (Insulin Glargine,Hum.Rec.Anlog 100 Unit/Ml 10 Ml Vial) 10 unit SUBCUT BEDTIME [facility] Last Admin: 07/21/22 22:08 Dose: Not Given Documented By: SETH Non-Admin Reason: Patient Refused Insulin Human Lispro (Insulin Lispro 100 Unit/Ml 3 Ml Vial) 0 unit SUBCUT QIDACHS [facility]; Protocol Last Admin: 07/21/22 22:09 Dose: Not Given Documented By: SETH Non-Admin Reason: Patient Refused Metoprolol Tartrate (Metoprolol Tartrate 50 Mg Tablet) 50 mg PO BID [facility]; Protocol Ondansetron HCl (Ondansetron Hcl 4 Mg/2 Ml Vial) 4 mg IVPUSH Q8H PRN PRN Reason: Nausea and Vomiting Pharmacy Consult (Consult Rx Perform Med Rec) 1 each MISCELLANE ONCE PRN PRN Reason: Consult order Sodium Chloride (0.9 % Sodium Chloride Flush 3 Ml Syringe) 3 ml IVFLUSH QSHIFT [facility] Last Admin: 07/22/22 01:46 Dose: Not Given Documented By: GUILLERMINA Non-Admin Reason: No Access Labs 07/22/22 05:57 07/22/22 05:57 Labs: Laboratory Results - last 24 hr 07/21/22 07/21/22 07/21/22 11:39 16:54 22:02 MCV MCH MCHC RDW Plt Count MPV Immature Gran % (Auto) Neut % (Auto) Lymph % (Auto) [place] % (Auto) Eos % (Auto) Baso % (Auto) Lymph # (Auto) [place] # (Auto) Eos # (Auto) Baso # (Auto) Abs Immat Gran (auto) Absolute Neuts (auto) Absolute Nucleated RBC Nucleated RBC % (auto) Anion Gap Estim Creat Clear Calc Estimated GFR POC Glucose 296 H 213 H 234 H Random Glucose Calcium 07/22/22 07/22/22 07/22/22 05:57 05:57 08:51 MCV 85.6 MCH 28.6 MCHC 33.5 RDW 13.7 Plt Count 169 MPV 9.8 Immature Gran % (Auto) 0.7 H Neut % (Auto) 83.9 H Lymph % (Auto) 6.4 L [place] % (Auto) 8.2 Eos % (Auto) 0.5 Baso % (Auto) 0.3 Lymph # (Auto) 0.8 L [place] # (Auto) 1.0 Eos # (Auto) 0.1 Baso # (Auto) 0.0 Abs Immat Gran (auto) 0.08 H Absolute Neuts (auto) 10.3 H Absolute Nucleated RBC 0.000 Nucleated RBC % (auto) 0.0 Anion Gap 15 Estim Creat Clear Calc 61.2 Estimated GFR > 60 POC Glucose 124 H Random Glucose 126 H Calcium 8.4 Microbiology Microbiology Results: Microbiology 07/20/22 Unknown Urine Culture - Preliminary Urine clean catch - Urine castellanos top Gram negative ariel 07/20/22 18:38 Blood Culture - Preliminary Blood - Venous No growth after 24 hours. 07/20/22 18:15 Blood Culture - Preliminary Blood - Venous No growth after 24 hours. Assessment and Plan (1) UTI (urinary tract infection): Status: Acute (2) Acute metabolic encephalopathy: Status: Acute (3) Type 2 diabetes mellitus: Status: Acute (4) Delirium due to medical condition without behavioral disturbance: Status: Acute (5) CHF (congestive heart failure): Status: Acute (6) Atrial fibrillation with rapid ventricular response: Status: Acute (7) Hyperglycemia: Status: Acute Plan 77-year-old female with hypothyroidism, [id number]-[id number] type 2 diabetes, hypertension, hyperlipidemia, paroxysmal atrial fibrillation anticoagulated with Eliquis, history of invasive ductal carcinoma of the breast, and history of uterine cancer admitted for atrial fibrillation with RVR, UTI, and hyperglycemia. #Acute metabolic encephalopathy- etiology unclear at this time -Pt developed significant aggitation, aggression, disoriented in the middle of the night requiring zyprexa and haldol. Symptoms persist this morning. Refusing medications, vital signs, yelling, throwing arms in the air. At this time, based on my evaluation, patient does not have capacity. Will work up acute metabolic encephalopathy -UC growing gram negative rods, final culture and sensitivity result pending. WBC increased to 12.3, no other SIRS criteria. Will broaden coverage with cefepime -Ct head ordered -Lytes normal. Hepatic panel, ammonia level, VBG (patient will not tolerate ABG), TSh w/ reflex free T4 ordered. CXR ordered -Keep NPO #Atrial fibrillation with RVR- chronicity unclear, appears to be a new diagnosis per her daughter -Hold PO meds due to encephalopathy. Once able, dc diltiazem 30mg PO, change to metoprolol 50mg BID per cardiology -Tele monitor reattached, Afib rate 80s-90s. Refusing vitals. Monitor closely -Consider IV rate control prn -Initiate therapeutic lovenox -Unable to perform echo this am. Will reattempt later - appreciate cardiology input - admit to telemetry #New onset CHF exacerbation, unspecified EF -Euvolemic based on exam findings yesterday, -1380ml since admission -IV lasix dc'd. Hold PO lasix for now -Echo ordered, as above -appreciate cardiology input -strict I&O -daily weights -NPO, resume cardiac diet once able #Acute UTI -UC growing gram negative rods, final culture and sensitivity result pending. WBC increased to 12.3, no other SIRS criteria. -Broaden coverage empirically to cefepime 2g TID given worsening leukocytosis and acute metabolic encephalopathy (initiated 07/22). Cetriaxone dc'd (received 2 doses) -preliminary blood cultures negative -Follow CBC,UC, BC # [id number] type 2 diabetes with Hyperglycemia- related to medication noncompliance -Hgb A1c >14.0 -Continue lantus 10 units nightly -Hold SSI as pt NPO -POC glucose # hypothyroidism - TSH 9.18, free T4 1.30- likely related to noncompliance - continue levothyroxine # hypertension- reasonably controlled at this time - dc atenolol. continue enalapril, metoprolol ?DVT prophylaxis-therapeutic Lovenox ?full code Case discussed with patient's daughter, Dori.? Please call with updates Ongoing inpt stay: acute metabolic encephalopathy, etiology unclear requiring addl work up, new onset afib wtih RVR. Requires close cardiac monitoring and expert consultation Time Spent With Patient Time: Total time managing care of this patient today ____ minutes. Quality Stroke Does the patient have a stroke diagnosis?: No VTE Prior VTE?: No VTE Risk Level:: Medical - moderate - high VTE Device Contraindication: Treatment Not Indicated VTE Drug Contraindication: N/A - Med Ordered
[2022-07-22 09:54] LABS: Alanine Aminotransferase 36 U/L (0-31); Alkaline Phosphatase 79 U/L (39-117); Aspartate Amino Transferase 35 U/L (5-31); Bilirubin Direct 0.3 mg/dL (0.0-0.5); Bilirubin Total 0.8 mg/dL (0.0-1.0); Total Protein 5.5 g/dL (6.5-8.0)
[2022-07-22 09:58] LABS: INTERNATIONAL NORM RATIO 1.2 (0.9-1.1)
[2022-07-22 10:00] LABS: Partial Thromboplastin Time 26.7 SEC (26.0-36.4)
[2022-07-22 10:02] LABS: Ammonia 30 umol/L (13-55)
[2022-07-22 10:05] LABS: TSH reflex Free T4 13.32 uIU/mL (0.32-4.0)
[2022-07-22 10:53] LABS: VBG HCO3 27 mmol/L (22-26); VBG pCO2 29 mmHg; VBG pH 7.57 (7.32-7.43); VBG pO2 148 mmHg
[2022-07-22 10:54] LABS: Venous Blood Gas Refer to POC result
[2022-07-22] MEDS: Enoxaparin Sodium 100 MG/ML SYRINGE SUBCUT ×2 (11:18→21:13)
[2022-07-22] MEDS: cefEPime HCl 2 GM in 0.9 % Sodium Chloride 50 ML IV ×2 (11:20→18:02)
[2022-07-22 11:44] VITALS: BP 145/85; PULSE 56; RESP 16; TEMP 36; O2SAT 93
[2022-07-22 11:53] LABS: Free T4 (Free Thyroxine) 0.97 ng/dL (0.71-1.85)
[2022-07-22 14:37] LABS: Potassium Urine Random 31.1 mmol/L
[2022-07-22 15:08] LABS: PH 5.5 (5.0-9.0)
[2022-07-22 16:00] VITALS: BP 147/56; PULSE 98; RESP 16; TEMP 36.3; O2SAT 95
[2022-07-22 17:22] LABS: Glucose, Whole Blood 47 mg/dL (60-115)
[2022-07-22] MEDS: Dextrose 10 % 250 ML 750 ML IV (17:23)
[2022-07-22] MEDS: 0.9 % Sodium Chloride Flush 3 ML SYRINGE IVFLUSH ×2 (17:23→21:08)
[2022-07-22 17:59] LABS: Glucose, Whole Blood 204 mg/dL (60-115)
[2022-07-22] MEDS: Lactated Ringers 1,000 ML 75 ML IVCONT (18:53)
[2022-07-22 20:00] VITALS: BP 130/75; PULSE 65; RESP 13; TEMP 36.2; O2SAT 95
[2022-07-22 23:54] VITALS: BP 110/58; PULSE 92; RESP 17; TEMP 36.2
[2022-07-23] MEDS: cefEPime HCl 2 GM in 0.9 % Sodium Chloride 50 ML IV ×2 (03:01→09:04)
[2022-07-23 03:37] VITALS: BP 120/84; PULSE 108; RESP 16; TEMP 36.7; O2SAT 92
[2022-07-23] MEDS: Metoprolol Tartrate 5 MG/5 ML VIAL IVPUSH (06:06)
[2022-07-23 06:58] LABS: Glucose, Whole Blood 164 mg/dL (60-115)
[2022-07-23 07:14] VITALS: BP 127/92; PULSE 107; RESP 16; TEMP 36.8; O2SAT 96
[2022-07-23 07:23] LABS: Glucose, Whole Blood 155 mg/dL (60-115)
[2022-07-23] MEDS: Enoxaparin Sodium 100 MG/ML SYRINGE SUBCUT ×2 (09:03→20:59)
[2022-07-23] MEDS: Metoprolol Tartrate 50 MG TABLET PO ×2 (09:03→21:00)
[2022-07-23] MEDS: Levothyroxine Sodium 100 MCG/5 ML VIAL 80 MCG IVPUSH (09:03)
[2022-07-23] MEDS: 0.9 % Sodium Chloride Flush 3 ML SYRINGE IVFLUSH ×2 (09:03→16:53)
[2022-07-23] MEDS: Furosemide 20 MG TABLET PO (09:03)
[2022-07-23 09:07] LABS: MANUAL DIFF FLAG NO
[2022-07-23 09:12] LABS: Basophils Absolute Auto 0.1 X10*3/uL (0.0-0.2); Basophils Percent Auto 0.5 % (0-2); Eosinophils Absolute Auto 0.1 X10*3/uL (0.0-0.4); Eosinophils Percent Auto 0.5 % (0-4); Hematocrit 48.7 % (37.0-47.0); Hemoglobin 16.2 g/dl (12.0-16.0); Imm Gran Pct Auto 0.8 % (0.0-0.4); Lymphocytes Absolute Auto 0.7 X10*3/uL (1.2-4.9); Lymphocytes Percent Auto 4.9 % (20-40); Mean Corpuscular HGB Conc 33.3 g/dl (31.0-35.0); Mean Corpuscular Hemoglobin 28.9 pg (27.0-33.0); Mean Corpuscular Volume 86.8 fL (80.0-98.0); Mean Platelet Volume 9.7 fL (9.4-12.3); Monocytes Absolute Auto 1.3 X10*3/uL (0.1-1.2); Neutrophils Absolute Auto 11.1 x10*3/uL (2.0-8.3); Neutrophils Percent Auto 83.3 % (45-73); Platelet Count 197 X10*3/uL (160-400); Red Blood Count 5.61 X10*6/uL (4.20-5.50); Red Cell Distribution Width 14.1 % (11.0-16.0); White Blood Count 13.3 X10*3/uL (4.8-10.8)
[2022-07-23 09:13] LABS: Venous Blood Gas Refer to POC result
[2022-07-23 09:14] LABS: VBG Base Excess 5.1 mmol/L; VBG HCO3 29 mmol/L (22-26); VBG pCO2 40 mmHg; VBG pH 7.46 (7.32-7.43); VBG pO2 43 mmHg
[2022-07-23 09:22] LABS: INTERNATIONAL NORM RATIO 1.1 (0.9-1.1); Prothrombin Time 13.2 SEC (10.0-13.1)
[2022-07-23] MEDS: Lactated Ringers 1,000 ML 75 ML IVCONT ×2 (09:26→21:10)
[2022-07-23 09:35] LABS: Alanine Aminotransferase 31 U/L (0-31); Albumin Level 2.9 g/dL (3.5-5.0); Alkaline Phosphatase 83 U/L (39-117); Anion Gap 14 (12-20); Aspartate Amino Transferase 28 U/L (5-31); Bilirubin Total 1.1 mg/dL (0.0-1.0); Blood Urea Nitrogen 18 mg/dL (9-16); Calcium 8.3 mg/dL (8.4-10.2); Carbon Dioxide 27 mmol/L (22-29); Chloride 100 mmol/L (96-108); Creatinine Clr Calc Pharmacy 62.1; Estimated Glomerular Filt Rate > 60; Glucose Random 197 mg/dL (60-115); Potassium 3.6 mmol/L (3.3-5.1); Sodium 137 mmol/L (135-145); Total Protein 5.3 g/dL (6.5-8.0)
[2022-07-23 12:00] VITALS: BP 152/68; PULSE 112; RESP 20; TEMP 37; O2SAT 98
[2022-07-23 12:20] LABS: Glucose, Whole Blood 333 mg/dL (60-115)
--- NOTE | 2022-07-23 12:41 | P.PNIM_ITS ---
Subjective Subjective Date of Service: 07/23/22 Interval History: Seen and evaluated more alert and interactive anxious about hospital stay no other overnight events Review of Systems Review of Systems: Yes all other systems are reviewed and are negative Physical Exam Vital Signs: Vital Signs: Last Vital Signs Temp 98.6 F 07/23/22 12:00 Pulse 112 H 07/23/22 12:00 Resp 20 07/23/22 12:00 BP 152/68 H 07/23/22 12:00 Pulse Ox 98 07/23/22 12:00 O2 Del Method Room Air 07/23/22 12:00 BMI result Body Mass Index 43.6 Const: Other: Constitutional : Awake, interactive, not in distress Neck : Normal inspection, Supple Cardiovascular : irregular irregular, no JVP, no lower extremity edema Respiratory : good bilateral air entry, no crackles, wheezes or rhonchi Gastrointestinal: soft, lax, Normal bowel sounds, Non tender Skin : Warm, Dry Neurological : Alert & oriented to time, place and self, No focal deficit Objective Data Active Medications Acetaminophen (Acetaminophen 325 Mg Tablet) 650 mg PO Q6H PRN PRN Reason: Pain, Mild (Pain Scale 1-3) Last Admin: 07/21/22 14:24 Dose: 650 mg Documented By: SETH Enoxaparin Sodium (Enoxaparin Sodium 100 Mg/Ml Syringe) 100 mg 1 mg/kg (100 mg) SUBCUT Q12H [facility] Last Admin: 07/23/22 09:03 Dose: 100 mg Documented By: YASMINE Furosemide (Furosemide 20 Mg Tablet) 20 mg PO DAILY ANTONIO; Protocol Last Admin: 07/23/22 09:03 Dose: 20 mg Documented By: YASMINE Glucose (Glucose Gel 15 Gm Gel..Gram.) 15 gm PO Q15M PRN; Protocol PRN Reason: per Hypoglycemia Standing Ord. Dextrose (D10) 250 mls @ 750 mls/hr IV Q15M PRN; Protocol PRN Reason: per Hypoglycemia Standing Ord. Last Infusion: 07/22/22 17:45 Dose: 0 mls/hr Documented By: MARISELA Cefepime HCl 2 gm/ Sodium (Chloride) 50 mls @ 100 mls/hr IV Q8H ANTONIO Last Infusion: 07/23/22 09:51 Dose: 0 mls/hr Documented By: YASMINE Lactated Ringer's (Lr) 1,000 mls @ 75 mls/hr IVCONT .[id number] [facility] Last Admin: 07/23/22 09:26 Dose: 75 mls/hr Documented By: YASMINE Insulin Glargine (Insulin Glargine,Hum.Rec.Anlog 100 Unit/Ml 10 Ml Vial) 10 unit SUBCUT BEDTIME [facility] Last Admin: 07/21/22 22:08 Dose: Not Given Documented By: SETH Non-Admin Reason: Patient Refused Insulin Human Lispro (Insulin Lispro 100 Unit/Ml 3 Ml Vial) 0 unit SUBCUT QIDACHS [facility]; Protocol Last Admin: 07/22/22 10:53 Dose: Not Given Documented By: MARISELA Non-Admin Reason: No Insulin Coverage Levothyroxine Sodium (Levothyroxine Sodium 100 Mcg/5 Ml Vial) 80 mcg IVPUSH DAILY@0600 [facility] Last Admin: 07/23/22 09:03 Dose: 80 mcg Documented By: YASMINE Metoprolol Tartrate (Metoprolol Tartrate 50 Mg Tablet) 50 mg PO BID [facility]; Protocol Last Admin: 07/23/22 09:03 Dose: 50 mg Documented By: YASMINE Ondansetron HCl (Ondansetron Hcl 4 Mg/2 Ml Vial) 4 mg IVPUSH Q8H PRN PRN Reason: Nausea and Vomiting Pharmacy Consult (Consult Rx Perform Med Rec) 1 each MISCELLANE ONCE PRN PRN Reason: Consult order Sodium Chloride (0.9 % Sodium Chloride Flush 3 Ml Syringe) 3 ml IVFLUSH QSHIFT [facility] Last Admin: 07/23/22 09:03 Dose: 3 ml Documented By: YASMINE Labs 07/23/22 09:01 07/23/22 09:01 Labs: Laboratory Results - last 24 hr 07/22/22 07/22/22 07/22/22 14:00 14:00 17:07 MCV MCH MCHC RDW Plt Count MPV Immature Gran % (Auto) Neut % (Auto) Lymph % (Auto) [place] % (Auto) Eos % (Auto) Baso % (Auto) Lymph # (Auto) [place] # (Auto) Eos # (Auto) Baso # (Auto) Abs Immat Gran (auto) Absolute Neuts (auto) Absolute Nucleated RBC Nucleated RBC % (auto) PT INR VBG pH VBG pCO2 VBG pO2 VBG HCO3 VBG O2 Saturation VBG Base Excess Anion Gap Estim Creat Clear Calc Estimated GFR POC Glucose 47 L* Random Glucose Calcium Total Bilirubin AST ALT Alkaline Phosphatase Total Protein Albumin Urine pH 5.5 Ur Random Sodium 36.0 Ur Random Potassium 31.1 Ur Random Chloride 24.0 07/22/22 07/22/22 07/23/22 17:55 21:10 07:12 MCV MCH MCHC RDW Plt Count MPV Immature Gran % (Auto) Neut % (Auto) Lymph % (Auto) [place] % (Auto) Eos % (Auto) Baso % (Auto) Lymph # (Auto) [place] # (Auto) Eos # (Auto) Baso # (Auto) Abs Immat Gran (auto) Absolute Neuts (auto) Absolute Nucleated RBC Nucleated RBC % (auto) PT INR VBG pH VBG pCO2 VBG pO2 VBG HCO3 VBG O2 Saturation VBG Base Excess Anion Gap Estim Creat Clear Calc Estimated GFR POC Glucose 204 H 164 H 155 H Random Glucose Calcium Total Bilirubin AST ALT Alkaline Phosphatase Total Protein Albumin Urine pH Ur Random Sodium Ur Random Potassium Ur Random Chloride 07/23/22 07/23/22 07/23/22 09:01 09:01 09:01 MCV 86.8 MCH 28.9 MCHC 33.3 RDW 14.1 Plt Count 197 MPV 9.7 Immature Gran % (Auto) 0.8 H Neut % (Auto) 83.3 H Lymph % (Auto) 4.9 L [place] % (Auto) 10.0 Eos % (Auto) 0.5 Baso % (Auto) 0.5 Lymph # (Auto) 0.7 L [place] # (Auto) 1.3 H Eos # (Auto) 0.1 Baso # (Auto) 0.1 Abs Immat Gran (auto) 0.10 H Absolute Neuts (auto) 11.1 H Absolute Nucleated RBC 0.000 Nucleated RBC % (auto) 0.0 PT 13.2 H INR 1.1 VBG pH VBG pCO2 VBG pO2 VBG HCO3 VBG O2 Saturation VBG Base Excess Anion Gap 14 Estim Creat Clear Calc 62.1 Estimated GFR > 60 POC Glucose Random Glucose 197 H Calcium 8.3 L Total Bilirubin 1.1 H AST 28 ALT 31 Alkaline Phosphatase 83 Total Protein 5.3 L Albumin 2.9 L Urine pH Ur Random Sodium Ur Random Potassium Ur Random Chloride 07/23/22 07/23/22 09:06 12:11 MCV MCH MCHC RDW Plt Count MPV Immature Gran % (Auto) Neut % (Auto) Lymph % (Auto) [place] % (Auto) Eos % (Auto) Baso % (Auto) Lymph # (Auto) [place] # (Auto) Eos # (Auto) Baso # (Auto) Abs Immat Gran (auto) Absolute Neuts (auto) Absolute Nucleated RBC Nucleated RBC % (auto) PT INR VBG pH 7.46 H VBG pCO2 40 VBG pO2 43 VBG HCO3 29 H VBG O2 Saturation 74.0 VBG Base Excess 5.1 Anion Gap Estim Creat Clear Calc Estimated GFR POC Glucose 333 H Random Glucose Calcium Total Bilirubin AST ALT Alkaline Phosphatase Total Protein Albumin Urine pH Ur Random Sodium Ur Random Potassium Ur Random Chloride Microbiology Microbiology Results: Microbiology 07/20/22 Unknown Urine Culture - Final Urine clean catch - Urine castellanos top Escherichia coli 07/20/22 18:38 Blood Culture - Preliminary Blood - Venous No growth after 48 hours. 07/20/22 18:15 Blood Culture - Preliminary Blood - Venous No growth after 48 hours. Assessment and Plan (1) Acute metabolic encephalopathy: Status: Acute (2) UTI (urinary tract infection): Status: Acute (3) Delirium due to medical condition without behavioral disturbance: Status: Acute (4) Hyperglycemia: Status: Acute (5) Atrial fibrillation with rapid ventricular response: Status: Acute (6) Polycythemia: Status: Acute Plan 77-year-old female with hypothyroidism, ybu-oyjdhyf-pobmlollc type 2 diabetes, hypertension, hyperlipidemia, paroxysmal atrial fibrillation anticoagulated with Eliquis, history of invasive ductal carcinoma of the breast, and history of uterine cancer admitted for atrial fibrillation with RVR, UTI, and hyperglycemia. #Acute metabolic encephalopathy Multifactorial, infection, inpatient delerium Taking meds today, has capacity to make decisions on her care Treat infection recurrent reorientation Ct head no acute findings, still concern of possible breast ca mets ? # persistent Atrial fibrillation with RVR, resolved dc diltiazem 30mg PO, change to metoprolol 50mg BID per cardiology rate controlled on therapeutic lovenox, change to Eliquis pending echo appreciate cardiology input #New onset CHF exacerbation, unspecified EF Euvolemic PO lasix for now strict I&O daily weights #Acute UTI E.Coli Change to PO Ceftin blood cultures negative # Polycythemia Hb and Hct elevated concern of possible primary\secondary malignancy IVF Hematology to eval as the patient has concern of breast ca but not following accordingly # [id number]-[id number] type 2 diabetes with Hyperglycemia- related to medication noncompliance Hgb A1c >14.0 Continue lantus 10 units nightly SSI # hypothyroidism TSH 13, free T4 1.30- likely related to noncompliance Give IV levothyroxine # hypertension controlled at this time ?DVT prophylaxis therapeutic Lovenox ?full code Case discussed with patient's daughter, Dori.? Please call with updates Ongoing inpt stay: acute metabolic encephalopathy, etiology unclear requiring addl work up, new onset afib wtih RVR. Requires close cardiac monitoring and expert consultation Time Spent With Patient Time: Total time managing care of this patient today ____ minutes. Quality Stroke Does the patient have a stroke diagnosis?: No VTE Prior VTE?: No VTE Risk Level:: Medical - moderate - high VTE Device Contraindication: Treatment Not Indicated VTE Drug Contraindication: N/A - Med Ordered
[2022-07-23] MEDS: Insulin Lispro 100 UNIT/ML 3 ML VIAL 8 UNIT SUBCUT (13:13)
--- NOTE | 2022-07-23 13:24 | MHC.CM.PN ---
CM MET W/PT TO DISCUSS DISPO AND HCP, PT AGREEABLE TO COMPLETE A HCP AND HAS CHOSEN HER DTR LIAM MARIANA [phone] HER H[facility], NO ALTERNATE CHOSEN AT THIS TIME. PT PROVIDED W/EDUCATION, ORIGINAL AND 2 COPIES, COPY UPLOADED TO [facility] AND PLACED ON CHART W/PT PERMISSION. CM WILL CONT TO FOLLOW DC NEEDS.
[2022-07-23 15:49] VITALS: BP 124/80; PULSE 97; RESP 15; TEMP 36.4; O2SAT 98
[2022-07-23 16:13] LABS: Glucose, Whole Blood 347 mg/dL (60-115)
[2022-07-23] MEDS: Insulin Lispro 100 UNIT/ML 3 ML VIAL SUBCUT ×2 (16:39→20:59)
--- NOTE | 2022-07-23 16:58 | PM.HEMONCCN ---
Subjective - Subjective Chief complaint: I felt sick Patient: new to practice Consult date: 07/23/22 Requesting Physician: Dr. Beavers Primary Care Provider: Oral Beasley MD Medical Summary: Patient diagnosed with breast cancer in March 2017. No prior abnormal mammograms or breast biopsies, routine screening mammogram identified a suspicious high-density mass in the posterior upper upper quadrant of right breast with heterogenous calcifications extending anteriorly from the mass. On ultrasound 0.7x0.8x1.8 cm irregular hypoechoic mass at the 10:00 position suspicious for invasive carcinoma, no right axillary adenopathy. on patient underwent biopsy of the right breast mass at 10:00 position, which should be invasive ductal carcinoma, moderately to poorly differentiated. 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 She also underwent stereotactic intact biopsy for calcifications the same day which showed ductal carcinoma in situ, comedo type with high nuclear grade, necrosis and microcalcifications, ER positive, RI positive. No family history of breast cancer. No history of control use or hormone replacement therapy. Oncotype DX recurrence score was high intermediate, score 29 which gives a ten-year risk of distant recurrence of 20% with tamoxifen alone. Patient refused both chemotherapy and adjuvant hormonal therapy. Remote history of uterine cancer. HPI - Consult Narrative Reason for consult: Polycythemia and leukocytosis Narrative: Princess Patterson is a 77 year old woman with past medical history significant for breast cancer, uterine cancer, paroxysmal atrial fibrillation and type 2 DM presenting with hyperglycemia and feeling unwell. She stopped taking her diabetes medications at home. Workup in the emergency department revealed hyperglycemia with sugar of 578, pseudohyponatremia, tachycardia and hypertension. EKG showed uncontrolled atrial fibrillation. Patient was treated with IV fluids, insulin and Cardizem with improvement in her heart rate. CBC showed leukocytosis with WBC count ranging from 11-13.3 K and hemoglobin of 16.2 g per dL. Her platelet counts are normal. Previously in 2020 her CBC did not show leukocytosis or polycythemia. She is being treated for urinary tract infection. Patient did recall her cancer history but does not recall being seen in the Oncology office in 2017 and 2018. She says she has yearly mammograms and she has been free of cancer. Review of Systems - Constitutional Reports as per HPI, Reports fatigue, Denies fever(s), Reports malaise - Cardiovascular Reports no additional cardiovascular complaints - Respiratory Reports no additional respiratory complaints - Neurologic Reports weakness [facility] Medical History: Medical History (Last Updated 07/22/22 @ 09:54 by TADEO Beckwith) Asymptomatic bacteriuria Atrial fibrillation Chronic anticoagulation History of uterine cancer HLD (hyperlipidemia) HTN (hypertension) Hypothyroidism Invasive ductal carcinoma of left breast Type 2 diabetes mellitus Surgical History: Surgical History (Last Reviewed 07/21/22 @ 11:55 by Mark Brannon MD) History of hysterectomy for cancer History of knee surgery History of lumpectomy of right breast Onset Date: 05/25/17 History of right breast biopsy Social History: Social History (Last Reviewed 07/21/22 @ 11:55 by Mark Brannon MD) Living Situation History: Household Members: None Housing: House Do you presently have visiting nurse or other home services: Yes Alcohol History Details: 1. How often do you have a drink containing alcohol?: a. Never AUDIT-C Alcohol total score: 0 Currently Displaying Signs/Symptoms of Alcohol Withdrawal: No Tobacco History: Patient Tobacco Use Status: Never used Tobacco Substance Use History: Use of substances other than those prescribed or required for medical reasons: No Currently Displaying Signs/Symptoms of Drug Intoxication Withdrawal: No Advance Directives: Advance Directives: No Advance Directives Information Provided: No Homicidal Assessment: Do you have thoughts of harming others: None Do you have a plan to hurt others: No Plan Nutrition Assessment: Recently lost weight without trying: Unsure Patient : No Poor oral hygiene: No Occupation Assessmet: service: No Current occupational status: retired Home Medications and Allergies Current Medications: Current Medications Acetaminophen (Acetaminophen 325 Mg Tablet) 650 mg PO Q6H PRN PRN Reason: Pain, Mild (Pain Scale 1-3) Last Admin: 07/21/22 14:24 Dose: 650 mg Cefuroxime Axetil (Cefuroxime Axetil 500 Mg Tablet) 500 mg PO BID [facility] Last Admin: 07/23/22 13:10 Dose: 500 mg Enoxaparin Sodium (Enoxaparin Sodium 100 Mg/Ml Syringe) 100 mg 1 mg/kg (100 mg) SUBCUT Q12H [facility] Last Admin: 07/23/22 09:03 Dose: 100 mg Furosemide (Furosemide 20 Mg Tablet) 20 mg PO DAILY [facility]; Protocol Last Admin: 07/23/22 09:03 Dose: 20 mg Glucose (Glucose Gel 15 Gm Gel..Gram.) 15 gm PO Q15M PRN; Protocol PRN Reason: per Hypoglycemia Standing Ord. Dextrose (D10) 250 mls @ 750 mls/hr IV Q15M PRN; Protocol PRN Reason: per Hypoglycemia Standing Ord. Last Infusion: 07/22/22 17:45 Dose: Infused Lactated Ringer's (Lr) 1,000 mls @ 75 mls/hr IVCONT .[id number] [facility] Last Admin: 07/23/22 09:26 Dose: 75 mls/hr Insulin Glargine (Insulin Glargine,Hum.Rec.Anlog 100 Unit/Ml 10 Ml Vial) 10 unit SUBCUT BEDTIME [facility] Last Admin: 07/21/22 22:08 Dose: Not Given Insulin Human Lispro (Insulin Lispro 100 Unit/Ml 3 Ml Vial) 0 unit SUBCUT QIDACHS [facility]; Protocol Last Admin: 07/23/22 16:39 Dose: 8 unit Levothyroxine Sodium (Levothyroxine Sodium 100 Mcg/5 Ml Vial) 80 mcg IVPUSH DAILY@0600 [facility] Last Admin: 07/23/22 09:03 Dose: 80 mcg Metoprolol Tartrate (Metoprolol Tartrate 50 Mg Tablet) 50 mg PO BID [facility]; Protocol Last Admin: 07/23/22 09:03 Dose: 50 mg Ondansetron HCl (Ondansetron Hcl 4 Mg/2 Ml Vial) 4 mg IVPUSH Q8H PRN PRN Reason: Nausea and Vomiting Pharmacy Consult (Consult Rx Perform Med Rec) 1 each MISCELLANE ONCE PRN PRN Reason: Consult order Sodium Chloride (0.9 % Sodium Chloride Flush 3 Ml Syringe) 3 ml IVFLUSH QSHIFT [facility] Last Admin: 07/23/22 16:53 Dose: 3 ml Home Medications Medication Instructions Recorded Confirmed Type aspirin 81 mg tablet,delayed 81 mg PO DAILY 05/05/20 07/22/22 History release atorvastatin 20 mg tablet 20 mg PO BEDTIME 05/05/20 07/22/22 History blood sugar diagnostic #10 ea 05/05/20 05/05/20 History enalapril maleate 20 mg tablet 20 mg PO QAM 05/05/20 07/22/22 History glipizide 10 mg tablet 10 mg PO BID 05/05/20 07/22/22 History levothyroxine 112 mcg tablet 112 mcg PO DAILY 05/05/20 07/22/22 History multivitamin 1 tab PO DAILY 05/05/20 07/22/22 History apixaban 5 mg tablet (Eliquis) 5 mg PO BID 07/21/22 07/22/22 History metformin 500 mg tablet 500 mg PO BID 07/21/22 07/22/22 History atenolol 25 mg tablet 12.5 mg PO BID 07/22/22 07/22/22 History ceramides 1,3,6-II (CeraVe topical 1 appl topical NEEDED 07/22/22 07/22/22 History cream) Allergies Allergy/AdvReac Type Severity Reaction Status Date / Time No Known Allergies Allergy Unverified 12/23/19 15:40 [No Known Allergies*] Physical Exam Vital signs: Vital Signs Temp 97.5 F 07/23/22 15:49 Pulse 97 07/23/22 15:49 Resp 15 07/23/22 15:49 BP 124/80 07/23/22 15:49 Pulse Ox 98 07/23/22 15:49 O2 Del Method Room Air 07/23/22 15:49 Intake & Output 07/22/22 07/23/22 07/23/22 18:59 06:59 18:59 Intake Total 350 / 525 175 / 525 1370 / 1370 Output Total 150 / 350 200 / 350 Balance 200 / 175 -25 / 175 1370 / 1370 Urine Output (Average ml/kg/hr) 0.12 0.16 0.16 Intake: Intake, Oral Amount 125 / 125 320 / 320 Intake, IV Amount 350 / 400 50 / 400 1050 / 1050 Dextrose 10 % 250 ml @ 750 mls/ 250 / 250 hr IV Q15M PRN Rx#:[id number] cefEPime HCl 2 gm In 0.9 % 100 / 150 50 / 150 50 / 50 Sodium Chloride 50 ml @ 100 mls /hr IV Q8H [facility] Rx#:[id number] Lactated Ringers 1,000 ml @ 75 1000 / 1000 mls/hr IVCONT .[id number] [facility] Rx#: [id number] Output: Output, Urine Amount 150 / 350 200 / 350 Other: Breakfast % Eaten 100% Lunch % Eaten 100% Number of Incontinent Voids 1 2 Number of Unmeasured Voids 2 2 Urine Purewick purewick Urine Color [place] Yellow Last Bowel Movement 07/23/22 Weight 101.3 kg - Constitutional Present: no acute distress, obese - Routine HEENT Exam Head: Present: normal inspection Eye: Present: EOMI, PERRL - Routine Neck Exam Present: supple. Absent: lymphadenopathy - Routine Respiratory Exam Absent: accessory muscle use - Routine Cardiovascular Exam Cardiovascular: Present: S1, S2 - Routine Abdominal Exam Present: soft - Routine Extremities Exam Absent: tenderness Hem/Onc Consult Result - Labs CBC & Chem 7: 07/23/22 09:01 07/23/22 09:01 Labs: Short CBC 07/23/22 Range/Units 09:01 WBC 13.3 H (4.8-10.8) X10*3/uL Hgb 16.2 H (12.0-16.0) g/dl Hct 48.7 H (37.0-47.0) % Plt Count 197 (160-400) X10*3/uL BMP 07/23/22 09:01 Sodium 137 Potassium 3.6 Chloride 100 Carbon Dioxide 27 BUN 18 H Creatinine 0.80 Calcium 8.3 L Liver Function 07/23/22 Range/Units 09:01 Total Bilirubin 1.1 H (0.0-1.0) mg/dL AST 28 (5-31) U/L ALT 31 (0-31) U/L Alkaline Phosphatase 83 (39-117) U/L Albumin 2.9 L (3.5-5.0) g/dL Assessment and Plan Patient Active problem list reviewed?: Yes (1) Polycythemia Status: Acute Assessment and plan: 1. This is a 77-year-old woman with remote history of uterine cancer and breast cancer presenting with polycythemia and neutrophilic leukocytosis. This was not present in 2020. She is currently being treated for UTI and poorly controlled diabetes mellitus. Presented with metabolic encephalopathy which was related to her infection and metabolic abnormalities. For further workup of polycythemia, submit serum erythropoietin level. JAK2 mutation can be submitted as outpatient. Underlying malignancy can also be a reason for leukocytosis and polycythemia. I discussed imaging study with CT abdomen/pelvis and CT chest but patient is not interested at this time. Serum LDH and CA 27-29 level has been ordered. There is no need for therapeutic phlebotomy at this time. Further workup can be performed as outpatient. I thank you for this referral. - Time Spent With Patient Time Spent with Patient (in minutes): 20
[2022-07-23 17:11] LABS: Lactate Dehydrogenase 309 U/L (122-220)
[2022-07-23 19:15] VITALS: BP 126/74; PULSE 94; RESP 15; TEMP 36.2; O2SAT 96
[2022-07-23 19:43] LABS: Glucose, Whole Blood 329 mg/dL (60-115)
[2022-07-23] MEDS: Insulin Glargine,Hum.rec.anlog 100 UNIT/ML 10 ML VIAL 10 UNIT SUBCUT (21:00)
[2022-07-24] VITALS (8 sets, daily range): BP systolic 100–154; BP diastolic 53–85; PULSE 61–111; RESP 19–20; TEMP 36–36.6; O2SAT 92–96
[2022-07-24 07:23] LABS: Hematocrit 46.6 % (37.0-47.0); Hemoglobin 15.5 g/dl (12.0-16.0); Mean Corpuscular HGB Conc 33.3 g/dl (31.0-35.0); Mean Corpuscular Volume 87.1 fL (80.0-98.0); Mean Platelet Volume 9.7 fL (9.4-12.3); Platelet Count 162 X10*3/uL (160-400); Red Blood Count 5.35 X10*6/uL (4.20-5.50); Red Cell Distribution Width 14.1 % (11.0-16.0); White Blood Count 11.5 X10*3/uL (4.8-10.8)
[2022-07-24 07:52] LABS: Glucose, Whole Blood 125 mg/dL (60-115)
[2022-07-24 08:21] LABS: Anion Gap 12 (12-20); Blood Urea Nitrogen 19 mg/dL (9-16); Carbon Dioxide 24 mmol/L (22-29); Chloride 103 mmol/L (96-108); Estimated Glomerular Filt Rate > 60; Glucose Random 138 mg/dL (60-115); Potassium 3.6 mmol/L (3.3-5.1); Sodium 135 mmol/L (135-145)
[2022-07-24] MEDS: Enoxaparin Sodium 100 MG/ML SYRINGE SUBCUT (08:46)
[2022-07-24] MEDS: Levothyroxine Sodium 100 MCG/5 ML VIAL 80 MCG IVPUSH (08:46)
[2022-07-24] MEDS: Metoprolol Tartrate 50 MG TABLET PO ×2 (08:47→20:57)
[2022-07-24] MEDS: 0.9 % Sodium Chloride Flush 3 ML SYRINGE IVFLUSH ×2 (08:47→15:22)
[2022-07-24] MEDS: Insulin Glargine,Hum.rec.anlog 100 UNIT/ML 10 ML VIAL 10 UNIT SUBCUT (08:47)
[2022-07-24] MEDS: Furosemide 20 MG TABLET PO (08:47)
[2022-07-24] MEDS: Lactated Ringers 1,000 ML 75 ML IVCONT (08:52)
[2022-07-24 11:12] LABS: Glucose, Whole Blood 235 mg/dL (60-115)
[2022-07-24] MEDS: Insulin Lispro 100 UNIT/ML 3 ML VIAL SUBCUT ×3 (11:18→20:59)
--- NOTE | 2022-07-24 14:39 | HO.PM.IMPN ---
Subjective Subjective Date of Service: 07/24/22 Interval History: Seen and evaluated more alert and interactive HR up to 140s this morning no other overnight events Review of Systems Review of Systems: Yes all other systems are reviewed and are negative Physical Exam Vital Signs: Vital Signs: Last Vital Signs Temp 97.9 F 07/24/22 10:48 Pulse 111 H 07/24/22 13:54 Resp 20 07/24/22 10:48 BP 151/67 H 07/24/22 13:54 Pulse Ox 95 07/24/22 13:54 O2 Del Method Room Air 07/24/22 10:48 BMI result Body Mass Index 43.6 Const: Other: Constitutional : Awake, interactive, not in distress Neck : Normal inspection, Supple Cardiovascular : irregular irregular, no JVP, no lower extremity edema, tachycardia Respiratory : good bilateral air entry, no crackles, wheezes or rhonchi Gastrointestinal: soft, lax, Normal bowel sounds, Non tender Skin : Warm, Dry Neurological : Alert & oriented to time, place and self, No focal deficit Objective Data Active Medications Acetaminophen (Acetaminophen 325 Mg Tablet) 650 mg PO Q6H PRN PRN Reason: Pain, Mild (Pain Scale 1-3) Last Admin: 07/21/22 14:24 Dose: 650 mg Documented By: SETH Cefuroxime Axetil (Cefuroxime Axetil 500 Mg Tablet) 500 mg PO BID [facility] Last Admin: 07/24/22 08:47 Dose: 500 mg Documented By: YASMINE Enoxaparin Sodium (Enoxaparin Sodium 100 Mg/Ml Syringe) 100 mg 1 mg/kg (100 mg) SUBCUT Q12H [facility] Last Admin: 07/24/22 08:46 Dose: 100 mg Documented By: YASMINE Furosemide (Furosemide 20 Mg Tablet) 20 mg PO DAILY [facility]; Protocol Last Admin: 07/24/22 08:47 Dose: 20 mg Documented By: YASMINE Glucose (Glucose Gel 15 Gm Gel..Gram.) 15 gm PO Q15M PRN; Protocol PRN Reason: per Hypoglycemia Standing Ord. Dextrose (D10) 250 mls @ 750 mls/hr IV Q15M PRN; Protocol PRN Reason: per Hypoglycemia Standing Ord. Last Infusion: 07/22/22 17:45 Dose: 0 mls/hr Documented By: MARISELA Insulin Glargine (Insulin Glargine,Hum.Rec.Anlog 100 Unit/Ml 10 Ml Vial) 15 unit SUBCUT BEDTIME [facility] Insulin Human Lispro (Insulin Lispro 100 Unit/Ml 3 Ml Vial) 0 unit SUBCUT QIDACHS [facility]; Protocol Last Admin: 07/24/22 11:18 Dose: 4 unit Documented By: YASMINE Levothyroxine Sodium (Levothyroxine Sodium 100 Mcg/5 Ml Vial) 80 mcg IVPUSH DAILY@0600 [facility] Last Admin: 07/24/22 08:46 Dose: 80 mcg Documented By: YASMINE Metoprolol Tartrate (Metoprolol Tartrate 50 Mg Tablet) 50 mg PO BID [facility]; Protocol Last Admin: 07/24/22 08:47 Dose: 50 mg Documented By: YASMINE Ondansetron HCl (Ondansetron Hcl 4 Mg/2 Ml Vial) 4 mg IVPUSH Q8H PRN PRN Reason: Nausea and Vomiting Pharmacy Consult (Consult Rx Perform Med Rec) 1 each MISCELLANE ONCE PRN PRN Reason: Consult order Sodium Chloride (0.9 % Sodium Chloride Flush 3 Ml Syringe) 3 ml IVFLUSH QSHIFT [facility] Last Admin: 07/24/22 08:47 Dose: 3 ml Documented By: YASMINE Labs 07/24/22 07:10 07/24/22 07:10 Labs: Laboratory Results - last 24 hr 07/23/22 07/23/22 07/23/22 09:01 16:04 19:37 MCV MCH MCHC RDW Plt Count MPV Absolute Nucleated RBC Nucleated RBC % (auto) Anion Gap Estim Creat Clear Calc Estimated GFR POC Glucose 347 H 329 H Random Glucose Calcium Lactate Dehydrogenase 309 H 07/24/22 07/24/22 07/24/22 07:10 07:10 07:48 MCV 87.1 MCH 29.0 MCHC 33.3 RDW 14.1 Plt Count 162 MPV 9.7 Absolute Nucleated RBC 0.000 Nucleated RBC % (auto) 0.0 Anion Gap 12 Estim Creat Clear Calc 68.0 Estimated GFR > 60 POC Glucose 125 H Random Glucose 138 H Calcium 8.0 L Lactate Dehydrogenase 07/24/22 10:56 MCV MCH MCHC RDW Plt Count MPV Absolute Nucleated RBC Nucleated RBC % (auto) Anion Gap Estim Creat Clear Calc Estimated GFR POC Glucose 235 H Random Glucose Calcium Lactate Dehydrogenase Assessment and Plan (1) Polycythemia: Status: Acute (2) Acute metabolic encephalopathy: Status: Acute (3) UTI (urinary tract infection): Status: Acute (4) Delirium due to medical condition without behavioral disturbance: Status: Acute (5) Atrial fibrillation with rapid ventricular response: Status: Acute Plan 77-year-old female with hypothyroidism, [id number] type 2 diabetes, hypertension, hyperlipidemia, paroxysmal atrial fibrillation anticoagulated with Eliquis, history of invasive ductal carcinoma of the breast, and history of uterine cancer admitted for atrial fibrillation with RVR, UTI, and hyperglycemia. # Acute metabolic encephalopathy Multifactorial, infection, inpatient delerium Improved significantly, has capacity to make decisions on her care Treat infection recurrent reorientation Ct head no acute findings, still concern of possible breast ca mets, patient doesnt want to do MRI head # New onset persistent Atrial fibrillation with RVR metoprolol 50mg BID per cardiology Additional Metoprol 25 mg dose on therapeutic lovenox, change to Eliquis pending echo , patient refused appreciate cardiology input # New onset CHF exacerbation, unspecified EF Euvolemic PO lasix for now strict I&O daily weights # Acute UTI E.Coli Change to PO Ceftin blood cultures negative # Polycythemia Hb and Hct elevated concern of possible primary\secondary malignancy IVF Oncology recommended # [id number] type 2 diabetes with Hyperglycemia- related to medication noncompliance Hgb A1c >14.0 Start 10 mg Glipizide and increase Metformin SSI # hypothyroidism TSH 13, free T4 1.30- likely related to noncompliance start po levothyroxine # hypertension controlled at this time ?DVT prophylaxis therapeutic Lovenox ?full code Case discussed with patient's daughter, Dori.? Please call with updates Ongoing inpt stay: new onset afib wtih RVR. Requires close cardiac monitoring pending safe discharge plan Time Spent With Patient Time: Total time managing care of this patient today ____ minutes. Quality Stroke Does the patient have a stroke diagnosis?: No VTE Prior VTE?: No VTE Risk Level:: Medical - moderate - high VTE Device Contraindication: Treatment Not Indicated VTE Drug Contraindication: N/A - Med Ordered
--- NOTE | 2022-07-24 14:39 | MHC.CM.PN ---
Addendum entered by Melissa Monson RN 07/24/22 14:57: PT REMAINS TACHHYCARDIC, PLAN FOR D/C FRIDAY AFTERNOON DTR REPORTS THERE IS NO ONE IN THE FAMILY WHO CAN ASSIST PT W/RETRIEVEING HER MEDS. Original Note: CM RETURNED CALL TO PT'S DTR/HCP LIAM WHO REPORTS SEVERAL CONCERNS REGARDING PT AND NONCOMPLIANCE W/MEDICATIONS AND SELF CARE, PER DISCUSSION A REFERRAL TO [facility] [place] [facility] FOR HOME HEALTH WILL BE PLACED AND ELDER AT RISK FILED, LIAM WAS ABLE TO GIVE CM PT'S NURSE'S NAME AND PHONE NUMBER HOWEVER UNABLE TO GIVE CM NAME OF [employer]. PT ACTIVE W/DAILY NSG AND HOME PT W/[employer] WHICH HAS BEEN CONFIRMED W/PT'S NURSE KHURRAM [phone] CM WILL CONT TO FOLLOW D/C NEEDS.
[2022-07-24] MEDS: Enalapril Maleate 10 MG TABLET 20 MG PO (15:21)
[2022-07-24] MEDS: Metoprolol Tartrate 25 MG TABLET PO (15:21)
--- NOTE | 2022-07-24 16:08 | MHC.CM.PN ---
ELDER AT RISK FILED W/[facility] AND SUBMITTED ELECTRONICALLY 07/24/22 AT 1608PM.
[2022-07-24 16:26] LABS: Glucose, Whole Blood 323 mg/dL (60-115)
--- NOTE | 2022-07-24 16:28 | MHC.CM.PN ---
PT AGREEABLE TO STAY ONE MORE NIGHT AND REQUESTS A 3PM AMBULANCE TRANSPORT TO BE SET UP, PT WILL RESUME new test company DAILY [facility], REFERRAL FOR [facility] PLACED AND ELDER AT RISK FILED.
[2022-07-24] MEDS: Acetaminophen 325 MG TABLET 650 MG PO (19:08)
[2022-07-24 19:41] LABS: Glucose, Whole Blood 181 mg/dL (60-115)
[2022-07-24] MEDS: glipiZIDE 10 MG TABLET PO (20:57)
[2022-07-24] MEDS: Apixaban 5 MG TABLET PO (20:57)
[2022-07-24] MEDS: Atorvastatin Calcium 20 MG TABLET PO (20:58)
[2022-07-25] MEDS: 0.9 % Sodium Chloride Flush 3 ML SYRINGE IVFLUSH ×2 (00:12→08:46)
[2022-07-25 04:00] VITALS: BP 101/58; PULSE 106; RESP 20; TEMP 36.3; O2SAT 95
[2022-07-25] MEDS: Levothyroxine Sodium 112 MCG TABLET PO (05:23)
[2022-07-25 07:05] VITALS: BP 135/67; PULSE 69; RESP 20; TEMP 36.1; O2SAT 98
[2022-07-25 07:26] LABS: Glucose, Whole Blood 177 mg/dL (60-115)
[2022-07-25] MEDS: Enalapril Maleate 10 MG TABLET 20 MG PO (08:45)
[2022-07-25] MEDS: Metoprolol Tartrate 50 MG TABLET PO (08:45)
[2022-07-25] MEDS: Multivitamin TABLET 1 TAB PO (08:45)
[2022-07-25] MEDS: metFORMIN HCl 850 MG TABLET PO (08:45)
[2022-07-25] MEDS: Furosemide 20 MG TABLET PO (08:45)
[2022-07-25] MEDS: Insulin Lispro 100 UNIT/ML 3 ML VIAL SUBCUT (08:46)
[2022-07-25] MEDS: Aspirin Enteric Coated 81 MG TABLET.DR PO (08:46)
[2022-07-25] MEDS: Apixaban 5 MG TABLET PO (08:46)
--- NOTE | 2022-07-25 08:48 | P.CDIM_ITS ---
PROVIDER RESPONSE TEXT: To clarify, the appropriate diagnosis supported by the clinical indicators: Severe or Morbid Obesity Without alveolar hypoventilation QUERY TEXT: PHYSICIAN'S DOCUMENTATION REQUEST Date of Query: 07/24/2022 02:31 PM EDT Patient Name: Princess Patterson Admit Date: 07/20/2022 Dear Tamera Beavers, A review of the medical record indicates additional documentation may be needed. Please review below and update the documentation accordingly. Clinical Indicators: Height: ( ) 5 FT Weight: ( ) 101.3 kg BMI: ( ) 43.6 Other Clinical Notes Supporting Significance of the BMI: If possible, please provide an associated diagnosis related to the abnormal BMI, such as: Overweight Obesity Due to excess calories Obesity Drug induced Obesity Due to other cause Specify the other cause Severe or Morbid Obesity With alveolar hypoventilation Severe or Morbid Obesity Without alveolar hypoventilation BMI is not significant Other (explain) Clinically unable to determine (explain) Thank you, Christina Bishop RN Use of terms such as suspected, likely, concern for, or probable (associated with a specific diagnosi s that is being evaluated, monitored, or treated as if it exists) are acceptable and can be coded in the inpatient se tting, when documented at the time of discharge. Please use your independent medical judgment in providing your response. THIS QUERY IS PART OF THE PERMANENT MEDICAL RECORD
[2022-07-25 09:20] VITALS: BP 135/67; PULSE 69; O2SAT 98
--- NOTE | 2022-07-25 10:33 | P.DS_ITS ---
DS: Providers Provider Date of Service: 07/25/22 Date of admission: 07/20/22 18:43 Primary care physician: Oral Beasley MD Consults: 07/20/22 18:43 Consult to Cardiology Routine Consulting Provider: [facility] Reason for consultation: afib rvr, new onset chf Has provider been notified: Yes 07/21/22 06:36 Consult to Psychiatry Routine Consulting Provider: Psych Covering Reason for consultation: paranoid 07/21/22 08:32 Consult to Psychiatry Stat Consulting Provider: Psych Covering Reason for consultation: paranoia, capacity eval. wants to leave [facility]- has been noncompliant -> adm 07/23/22 08:23 Consult to Hematology / Oncology Routine Consulting Provider: Ludmila Pearson Reason for consultation: Polycythemia, Confusion for your kind eval. DS: Diagnosis Discharge Diagnosis (1) Polycythemia: Status: Acute (2) Acute metabolic encephalopathy: Status: Acute (3) UTI (urinary tract infection): Status: Acute (4) Delirium due to medical condition without behavioral disturbance: Status: Acute (5) Atrial fibrillation with rapid ventricular response: Status: Acute (6) Hyperglycemia: Status: Acute (7) Type 2 diabetes mellitus: Status: Acute DS: Summary Hospital Course Hospital Course: HPI on admission 07/19: Chief Complaint: hyperglycemia, feeling unwell 77-year-old female with hypothyroidism, [id number] type 2 diabetes, hypertension, hyperlipidemia, paroxysmal atrial fibrillation anticoagulated with Eliquis, history of invasive ductal carcinoma of the breast, and history of uterine cancer presented to the ED earlier today via EMS for management of hyperglycemia.? The patient is not the best historian but tells me that her diabetes medications had been making her feel unwell like her sugar was low but when she would check her sugar, her sugars were elevated so she felt that her monitor was not working and stop testing her sugars altogether.? She also stopped taking her glipizide and metformin though she states she continues to feel unwell but does not elaborate on symptoms.? She denies any fevers, chills, abdominal pain, nausea, vomiting, diarrhea, constipation.? She has also been r ecently diagnosed with atrial fibrillation and is unclear if she has been taking the remainder of her medications.? Her daughter tells me that the patient lives? on her own and she has been calling frequent wellness checks on her mother and she also has a VNA nurse M-F. The patient has been canceling doctors appointments including the initial visit with her hamper maker machine. She denies any palpiations,? lightheadedness, headaches, shortness of breath, orthopnea, PND, or chest pain.? She has noted increased swelling in the bilateral lower legs it has been ongoing for several days. On arrival, patient tachycardic to 140, tachypneic to 30, hypertensive to 166/122.? No hypoxia.? Mild leukocytosis of 11.3.? Renal function normal.? Sodium 133 likely? pseudo hyponatremia in the setting of hyperglycemia with glucose on arrival 578.? Remaining electrolytes within normal limits. ? Anion gap closed. Lactic acid 2.3.? Troponin 17.6, BNP 115.? EKG showing atrial fibrillation with RVR and PVCs or aberrant conducted complexes, rate 112.? Urinalysis with negative? leukocytes, positive nitrites, 1+ blood, significant glucose, positive urinary sediment, 4+ ? Bacteria.? Chest x-ray showing CHF with mild cardiomegaly and small pleural effusions left greater than right. ?In the ED, given 10 units regular insulin with improvement in glucose to 394.? Also given 20 mg push Cardizem followed by 30 mg p.o. Cardizem with improvement in heart rate to 75.? She was also given 1 L IV NS and 1 g ceftriaxone. Hospital course: Pt admitted to teleetry for management of atrial fibrillation with RVR. She was transitioned to PO diltiazem 30mg QID with some improvement in heart rate, but continued with intermittent tachycardia. She was otherwise hemodynamically stable during admission, no hypotension. She diuresed well with IV lasix with clinical improvement in edema and lung sounds. She did also have positive urinalysis on admission and has been treated with ceftriaxone though urine culture remains pending. Unfortunately patient has been adamant about leaving. Significant efforts were made to advise against leaving against medical advise. She was evaluated by psychiatry who found the patient to have capacity to make medical and placement dcisions despite mild short term memory deficits. She has a basic grasp of her medical history, her current situation and risks. The patient was also seen and evaluated by cardiology who counseled patient against premature discharge as did this author. She was counseled on the risks of recurrent decompensated heart failure and risk of uncontrolled atrial fibrillation with RVR including stroke, hypotension, cardiomyopathy, lightheadedness/syncope, and . Unfortuantely echocardiogram could not be obtained due to patient refusal. However, did discuss cardiology recommendations with patient. Atenolol should be discontinue and metoprolol 50mg BID should be initiated. She will continue on eliquis 5mg BID and is started on furosemide 20mg daily. She will be discharged on cefuroxime 500mg BID for management of UTI. Counseled on compliance with diabetes medications and diabetic diet. Glucose levels improved with 10 units lantus and humalog on sliding scale, Hgb A1c above detectable limits at >14.0%. She is advised to resume her metformin and glipizide at higher doses. Advised to follow up with PCP and cardiology outpatient for further work up including holter monitor and echocardiogram. Noted to have Polycythemia. evaluated by oncologist who has concerns over recurrence of cancer. patient refused to do more images of CT chest & Abd, brain MRI stating even if she has something she doesnt want to know. i discussed these findings with her HCP. advised to follow with dr Pearson for further work up if she changes her mind. Advised to return to the ED for any recurrent or worsening symptoms. Time Spent with Patient Time attestation: Total time managing care of this patient today ____ minutes. Discharge coordination time: Greater than 30 minutes Quality: Safe Use of Opioids Does Pt have an Active Cancer Diagnosis on the Problem List?: No Quality: Stroke Does the patient have a stroke diagnosis?: No Physical Exam Vital Signs: Vital Signs: Last Vital Signs Temp 97.0 F 07/25/22 07:05 Pulse 69 07/25/22 09:20 Resp 20 07/25/22 07:05 BP 135/67 07/25/22 09:20 Pulse Ox 98 07/25/22 09:20 O2 Del Method Room Air 07/25/22 07:05 BMI result Body Mass Index 43.6 Const: Other: Constitutional : Awake, interactive, not in distress Neck : Normal inspection, Supple Cardiovascular : irregular irregular, no JVP, no lower extremity edema, tachycardia Respiratory : good bilateral air entry, no crackles, wheezes or rhonchi Gastrointestinal: soft, lax, Normal bowel sounds, Non tender Skin : Warm, Dry Neurological : Alert & oriented to time, place and self, No focal deficit DS: Data Data Completed and Pending Labs on day of discharge: Laboratory Results - last 24 hr 07/24/22 07/24/22 07/24/22 10:56 16:22 19:38 POC Glucose 235 H 323 H 181 H 07/25/22 07:16 POC Glucose 177 H Preliminary micro results at discharge 07/20/22 18:38 Blood Culture - Preliminary Blood - Venous No growth after 48 hours. 07/20/22 18:15 Blood Culture - Preliminary Blood - Venous No growth after [address] scan - head: Radiologist's impression: ITS Impressions Chest X-Ray 07/20/22 17:38 IMPRESSION: CHF as above. Chest X-Ray 07/22/22 09:56 IMPRESSION: CHF similar to recent exam. Head CT 07/22/22 09:58 IMPRESSION: No acute intracranial hemorrhage or territorial infarction. Moderate generalized parenchymal volume loss and [id number] chronic white matter microangiopathy. Discharge Plan Discharge Anticipated Discharge Date/Time: 07/21/22 13:13 Patient Disposition: Home Health Service Discharge Diagnosis: atrial fibrillation with RVR, congestive heart failure, UTI Referrals: [facility] [Other] - 1 Day ([facility] [phone] WILL SEE YOU ON FRIDAY MORNING. ) [facility] [Outside] - 3-5 Days (A REFERRAL HAS BEEN PLACED FOR YOU TO BE EVALUATED FOR HOME HEALTH/[facility], SOMEONE FROM [facility] WILL BE IN CONTACT.) Name,MD Oral [Primary Care Provider] - 1 Week Discharge Medications: New metoprolol tartrate 50 mg tablet 50 mg PO BID Qty: 60 0RF cefuroxime axetil 500 mg tablet 500 mg PO BID Qty: 10 0RF furosemide 20 mg tablet 20 mg PO DAILY Qty: 30 0RF (DME) blood-glucose meter [FreeStyle Lite Meter] Kit See Rx Instructions .Route Qty: 1 0RF Rx Instructions: As directed (DME) FreeStyle Test Strip See Rx Instructions .Route Qty: 100 0RF Rx Instructions: BID (DME) lancets [FreeStyle Lancets] 28 gauge misc See Rx Instructions .Route Qty: 100 0RF Rx Instructions: As directed glipizide 10 mg Tablet 10 mg PO DAILY Qty: 30 2RF metformin 850 mg Tablet 850 mg PO BIDWM Qty: 60 2RF Continued Eliquis 5 mg tablet 5 mg PO BID CeraVe Cream 1 appl topical NEEDED enalapril maleate 20 mg tablet 20 mg PO QAM levothyroxine 112 mcg tablet 112 mcg PO DAILY atorvastatin 20 mg tablet 20 mg PO BEDTIME multivitamin Tablet 1 tab PO DAILY (DME) blood sugar diagnostic Strip See Rx Instructions .ROUTE QID Qty: 10 Rx Instructions: As directed aspirin 81 mg tablet,delayed release (DR/EC) 81 mg PO DAILY Discontinued metformin 500 mg tablet 500 mg PO BID atenolol 25 mg tablet 12.5 mg PO BID glipizide 5 mg tablet 5 mg PO DAILY glipizide 10 mg tablet 10 mg PO BID atenolol 25 mg tablet 12.5 mg PO BID Discharge Orders: Discharge Order (Routine); Ordered 07/25/22 Ordered By: Tamera Beavers Diet: Diabetic diet Activity on Discharge: As tolerated Stand Alone Forms: Patient Portal Discharge page Care Plan Goals: Manage heart rate Diabetes medication and diet compliance Prevent decompensation from uncontrolled atrial fibrillation and congestive heart failure Health Concerns: Medication noncompliance Atrial fibrillation with rapid rate Congestive heart failure UTI Plan of Treatment: You are leaving AGAINST MEDICAL ADVICE. Your heart rate is not controlled and places you at increased risk for stroke, syncope/lightheadedness, weakened heart muscle, decompensated heart failure, . Return to the ED immediately should your symptoms worsen Atrial fibrillation -STOP taking atenolol. Instead, start metoprolol 50mg twice daily -continue eliquis twice daily to prevent stroke -You will need to follow up with your PCP and a hamper maker machine SALE[employer] for further management and monitoring with a holter monitor and echocardiogram Congestive heart failure -This was diagnosed clinically as you refused doing echocardiogram -Clinically symptoms have improved with diuresis -Continue to take furosemide 20mg daily -Follow up as above Hyperglycemia with uncontrolled diabetes -Your A1c is above measurable limits of 14.0% due to medication noncompliance. -Resume metformin and glipizide as prescribed by your PCP to better control your glucose levels and prevent serious complications -Follow diabetic diet Urine infection -cefuroxime 500mg twice daily x 5 days Elevated hemoglobin level -will need to follow up with dr eParson for further work up Assessment: as above
[2022-07-25 11:00] LABS: Glucose, Whole Blood 198 mg/dL (60-115)
--- NOTE | 2022-07-25 11:01 | MHC.CM.PN ---
Addendum entered by Brigitte Silverio 07/25/22 11:18: MESSAGE LEFT FOR DAUGHTER LIAM REGARDING TODAY'S DC. Original Note: DP: [facility] DELIVERED PT HAS BEEN MEDICALLY CLEARED FOR DC HOME WITH [facility] SN [facility]. [facility] ZORA NIX MADE AWARE OF TODAY'S DC VIA . RN AWARE. BLS TRANSPORT BOOKED FOR 3 PM VIA [facility].
[2022-07-25 11:02] VITALS: BP 93/52; PULSE 71; RESP 20; TEMP 36.2; O2SAT 95
[2022-07-25 12:04] LABS: Glucose, Whole Blood 232 mg/dL (60-115)
[2022-07-25 13:11] LABS: Glucose, Whole Blood 226 mg/dL (60-115)
[2022-07-25 15:03] VITALS: BP 115/84; PULSE 89; RESP 20; TEMP 36.1
[2022-07-26 09:02] LABS: CA 27.29 16 U/mL (<38)
[2022-07-26 09:39] LABS: Erythropoietin (EPO) 8.6 mIU/mL (2.6-18.5)
== END 2022-07-25 15:27 | disposition home health service (06) | DRG 637 ==
LOC: HO.ED 18:46 → HO.EDOVER 19:04 → HO.IMC 19:31
PROVIDERS: Internal Medicine; Admitting Provider Physician Assistant; Emergency Provider Emergency Medicine; PCP Internal Medicine Geriatric Medicine; Visit Provider Student in an Organized Health Care Education/Training Program
DX: E11.65 Type 2 diabetes mellitus with hyperglycemia (principal); G93.41 Metabolic encephalopathy; N39.0 Urinary tract infection, site not specified; F05 Delirium due to known physiological condition; Z68.41 Body mass index [BMI] 40.0-44.9, adult; I11.0 Hypertensive heart disease with heart failure; I50.9 Heart failure, unspecified; E66.01 Morbid (severe) obesity due to excess calories; D75.1 Secondary polycythemia; I48.0 Paroxysmal atrial fibrillation; E03.9 Hypothyroidism, unspecified; B96.20 Unspecified Escherichia coli [E. coli] as the cause of diseases classified elsewhere; Z91.148 Patient's other noncompliance with medication regimen for other reason; Z79.01 Long term (current) use of anticoagulants; Z79.82 Long term (current) use of aspirin; Z79.84 Long term (current) use of oral hypoglycemic drugs; Z79.899 Other long term (current) drug therapy
CPT/HCPCS: 36415; 70450; 71045; 80048; 80053; 80076; 81001; 82140; 82436; 82668; 82803; 82947; 83036; 83605; 83615; 83690; 83735; 83880; 84133; 84300; 84439; 84443; 84484; 85025; 85027; 85610; 85730; 86300; 87040; 87086; 87088; 87186; 87635; 92950; 93005; 97110; 97116; 97162; 99285; J0692; J0696; J1650; J1940; Q9957

== ENCOUNTER 2022-07-27 19:16 | Inpatient (IN) | payer MEDICARE, OTHER, SELFPAY ==
--- NOTE | ~2022-07-27 | XR_ITS ---
EXAMINATION: XR CHEST CLINICAL INFORMATION: Shortness of breath COMPARISON: 07/27/2022 TECHNIQUE: Frontal view of the chest was obtained. FINDINGS: Lung volumes appear symmetric. There are persistent regions of bibasilar airspace opacity and small pleural effusions. There is increasing opacity in the right upper lung compared to prior. No appreciable pneumothorax, though patient positioning limits evaluation of the lung apices. Cardiac silhouette appears enlarged. Calcification is present at the aortic arch. No acute osseous findings are seen. XR/XR chest 1V IMPRESSION: Persistent regions of bibasilar airspace opacity and small pleural effusions. Increasing opacity in the right upper lung compared to prior. Findings may be secondary to edema, though superimposed infection cannot be excluded in the proper clinical setting.
--- NOTE | ~2022-07-27 | XR_ITS ---
EXAMINATION: XR CHEST CLINICAL INFORMATION: Hypoxic respiratory failure follow-up COMPARISON: 09/08/2022 TECHNIQUE: Frontal view of the chest was obtained. FINDINGS: The enlarged cardiomediastinal silhouette is obscured. There is increasing moderate to large right-sided pleural effusion with adjacent airspace opacities. Small to moderate left-sided pleural effusion with adjacent airspace opacities. No pneumothorax. XR/XR chest 1V IMPRESSION: 1. Increasing moderate to large right-sided pleural effusion with adjacent airspace opacities. 2. Small to moderate left-sided pleural effusion with adjacent airspace opacities.
--- NOTE | ~2022-07-27 | XR_ITS ---
EXAMINATION: XR CHEST CLINICAL INFORMATION: Rule out pulmonary edema COMPARISON: Previous chest x-ray most recent 07/22/2022 TECHNIQUE: Frontal view of the chest was obtained. FINDINGS: The cardiac and mediastinal contours are stable. There is pulmonary venous redistribution, perihilar consolidation and left pleural effusion. Findings are again suggestive of CHF. There are degenerative changes of the spine. XR/XR chest 1V IMPRESSION: CHF
--- NOTE | ~2022-07-27 | XR_ITS ---
EXAMINATION: XR CHEST CLINICAL INFORMATION: Shortness of breath COMPARISON: 09/07/2022 TECHNIQUE: Frontal view of the chest was obtained. FINDINGS: Lung volumes are symmetric. Redemonstrated extensive heterogeneous opacity throughout both lungs with relative sparing of the left apex. Appearance in the right lung is similar to prior while appearance in the left lung has worsened in the perihilar region. Persistent small to moderate right and small left pleural effusions. No evidence of pneumothorax. Cardiomediastinal silhouette appears grossly stable though is not well assessed. Calcification is present at the aortic arch. Degenerative changes are noted in the spine. XR/XR chest 1V IMPRESSION: Redemonstrated extensive heterogeneous opacities throughout both lungs, with interval worsening in the left perihilar region. Persistent small to moderate right and small left pleural effusions.
--- NOTE | ~2022-07-27 | XR_ITS ---
EXAMINATION: XR CHEST CLINICAL INFORMATION: Follow-up for hypoxia. COMPARISON: 09/05/2022 TECHNIQUE: Frontal view of the chest was obtained. FINDINGS: Lungs are hypoinflated. The current radiographic abnormalities are similar to those seen on 09/05/2022 at 3:42 AM with exception of worsening opacity in the right perihilar region. Bilateral pleural effusions (left larger than right). Likely compressive atelectasis at the bases. Also, persistent airspace opacity in right upper lobe and possibly in left lower lobe. Nonspecific patchy opacity of the right mid and lower lung is present. No pneumothorax. Cardiac silhouette has stable size and contour, although partially obscured by pleural effusions and pulmonary opacities. Pulmonary vessels have a congested appearance. The visualized bones are intact. XR/XR chest 1V IMPRESSION: * Lungs are suboptimally evaluated due to hypoinflation and crowding of bronchovascular structures. * Cardiomegaly, apparent pulmonary vascular congestion and persistent bilateral pulmonary opacities. The pulmonary opacities are nonspecific and could reflect presence of asymmetric pulmonary edema or multilobar pneumonia. There is worsening patchy opacity in the right perihilar region.
--- NOTE | ~2022-07-27 | XR_ITS ---
EXAMINATION: XR CHEST CLINICAL INFORMATION: Hypoxia COMPARISON: Chest x-ray earlier this morning. TECHNIQUE: Frontal view of the chest was obtained. FINDINGS: The lungs are hypoinflated although appear slightly more aerated than imaging from earlier this morning. Moderate left-sided pleural effusion is unchanged. Patchy airspace disease is similar, most prominent involving the right lung. No pneumothorax. Degenerative changes of the spine. XR/XR chest 1V IMPRESSION: Slight interval improvement in lung aeration. Persistent moderate left-sided pleural effusion with patchy bilateral airspace disease.
[2022-07-27 19:28] VITALS: BP 130/89; BP 132/80; PULSE 100; PULSE 85; RESP 20; TEMP 35.7; O2SAT 97; BMI 29.2
--- NOTE | 2022-07-27 19:40 | ECG_ITS ---
Test Reason : TACHYCARDIA Blood Pressure : / mmHG Vent. Rate : 131 BPM Atrial Rate : 366 BPM P-R Int : 000 ms QRS Dur : 078 ms QT Int : 304 ms P-R-T Axes : 000 002 141 degrees QTc Int : 448 ms Atrial fibrillation with rapid ventricular response Septal infarct (cited on or before 20-JUL-2022) T wave abnormality, consider lateral ischemia Abnormal ECG When compared with ECG of 20-JUL-2022 17:48, No significant changes seen Referred By: Janae Kong Electronically Signed By:SHYANNE CALERO
[2022-07-27 19:42] LABS: Glucose, Whole Blood 409 mg/dL (60-115)
--- NOTE | 2022-07-27 19:49 | ED.GENADULT ---
HPI - General Adult General Chief complaint: Fall <Janae Kong MD - Last Filed: 07/28/22 01:56> Stated complaint: FOUND ON FLOOR,UNK HOW LONG,FEELS SOB PER EMS <Janae Kong MD - Last Filed: 07/28/22 01:56> Time Seen by Provider: 07/27/22 19:21 <Janae Kong MD - Last Filed: 07/28/22 01:56> Source: patient and EMS <Janae Kong MD - Last Filed: 07/28/22 01:56> Mode of arrival: EMS <Janae Kong MD - Last Filed: 07/28/22 01:56> Limitations: no limitations <Janae Kong MD - Last Filed: 07/28/22 01:56> History of Present Illness HPI narrative: Patient comes to the emergency room from home via ambulance. Patient states that sometime last night, anywhere between 15-20 hours ago, patient states that she was sitting in between 2 chairs, she slipped in between the 2 chairs and lowered herself to the ground. Patient was unable to get up. Patient states that she did not get hurt landing. However, patient was unable to get up. Eventually, patient got enough strength to call 911. Patient is poor historian. Patient states that because she has been on the floor all day, she has not been taking any of her daytime medications. Per EMS, the EKG shows AFib, on the monitor for them patient has been having a heart rate between 130-160. <Janae Kong MD - Last Filed: 07/28/22 01:56> Related Data Home medications: Home Medications Medication Instructions Recorded Confirmed aspirin 81 mg tablet,delayed 81 mg PO DAILY 05/05/20 07/28/22 release atorvastatin 20 mg tablet 20 mg PO BEDTIME 05/05/20 07/28/22 blood sugar diagnostic #10 ea 05/05/20 07/28/22 enalapril maleate 20 mg tablet 20 mg PO DAILY 05/05/20 07/28/22 levothyroxine 112 mcg tablet 112 mcg PO DAILY@0600 05/05/20 07/28/22 multivitamin 1 tab PO DAILY 05/05/20 07/28/22 apixaban 5 mg tablet (Eliquis) 5 mg PO BID 07/21/22 07/28/22 ceramides 1,3,6-II (CeraVe topical 1 appl topical NEEDED PRN Dry 07/28/22 07/28/22 cream) Skin glipizide 10 mg tablet 10 mg PO DAILY 07/28/22 07/28/22 Previous Rx's Medication Instructions Recorded blood sugar diagnostic (FreeStyle #100 ea 07/21/22 Test strips) blood-glucose meter (FreeStyle #1 ea 07/21/22 Lite Meter kit) cefuroxime axetil 500 mg tablet 500 mg PO BID #10 tabs 07/21/22 furosemide 20 mg tablet 20 mg PO DAILY #30 tabs 07/21/22 lancets 28 gauge (FreeStyle #100 ea 07/21/22 Lancets) metoprolol tartrate 50 mg tablet 50 mg PO BID #60 tabs 07/21/22 metformin 850 mg tablet 850 mg PO BIDWM #60 tabs 07/25/22 <Janae Kong MD - Last Filed: 07/28/22 01:56> Allergies/adverse reactions: Allergies Allergy/AdvReac Type Severity Reaction Status Date / Time No Known Allergies Allergy Unverified 12/23/19 15:40 [No Known Allergies*] <Janae Kong MD - Last Filed: 07/28/22 01:56> Review of Systems Review of Systems: Constitutional : No Weight loss, No Fever, No Chills, No Night Sweats, No Fatigue, No Malaise, states she does not feel good ENT/Mouth : No Hearing loss, No Ear Pain, No Nasal Congestion, No Sinus Pain, No Hoarseness, No sore throat, No Rhinorrhea, No Swallowing Difficulty Eyes: No Eye Pain, No Swelling, No Redness, No Foreign Body, No Discharge, No Vision Changes Cardiovascular : No Chest Pain, No SOB, No Dyspnea on Exertion, No Orthopnea, No Edema, complaining of Palpitations Respiratory : No Cough, No Sputum, No Wheezing, No Smoke Exposure, complaining of Dyspnea Gastrointestinal : No Nausea, No Vomiting, No Diarrhea, No Constipation, No abdominal Pain, No Hematochezia, No Melena Genitourinary : no irregular bleeding, No Dysuria, No Urinary Frequency, No Hematuria, No Urinary Incontinence, No Urgency, No Flank Pain, No Urinary Flow Changes, No Hesitancy Musculoskeletal : No joint pain, No Myalgias, No Joint Swelling Skin : No Skin Lesions, No rash Neuro : No Weakness, No Numbness, No Paresthesias, No Loss of Consciousness, No Dizziness, No Headache Psych : No Anxiety/Panic, No Depression, No SI/HI/AH/VH, No Social Issues, Heme/Lymph: No Bruising, No Bleeding,No Lymphadenopathy Endocrine : No Polyuria, No Polydipsia, No Temperature Intolerance. <Janae Kong MD - Last Filed: 07/28/22 01:56> [facility] Past Medical History Medical History: Medical History Asymptomatic bacteriuria Atrial fibrillation Chronic anticoagulation History of uterine cancer HLD (hyperlipidemia) HTN (hypertension) Hypothyroidism Invasive ductal carcinoma of left breast Type 2 diabetes mellitus <Janae Kong MD - Last Filed: 07/28/22 01:56> Surgical History: Surgical History History of hysterectomy for cancer History of knee surgery History of lumpectomy of right breast (05/25/17) History of right breast biopsy <Janae Kong MD - Last Filed: 07/28/22 01:56> Social History Social History: Social History Household Members: None Housing: House Do you presently have visiting nurse or other home services: Yes Alcohol intake: never Patient Tobacco Use Status: Never used Tobacco Advance Directives: No Advance Directives Information Provided: No service: No Current occupational status: retired <Janae Kong MD - Last Filed: 07/28/22 01:56> Physical Exam ED Vital Signs: Vital Signs - 24 hr 07/27/22 19:28 07/27/22 20:00 07/27/22 20:48 Temperature 96.3 F L 97.9 F Pulse Rate 85 80 97 Respiratory Rate 20 22 H 20 Blood Pressure 130/89 132/81 128/71 Pulse Oximetry 97 93 89 L Oxygen Delivery Method Room Air Room Air Room Air Oxygen Flow Rate 07/27/22 22:00 07/27/22 23:49 07/28/22 02:10 Temperature 97.9 F 96.6 F L Pulse Rate 79 130 H 105 H Respiratory Rate 22 H 24 H 18 Blood Pressure 92/60 87/69 L 110/62 Pulse Oximetry 98 94 92 Oxygen Delivery Method Nasal Cannula Room Air Room Air Oxygen Flow Rate 2 07/28/22 04:13 07/28/22 06:38 07/28/22 08:00 Temperature 96.4 F L 98.2 F Pulse Rate 97 99 130 H Respiratory Rate 20 28 H 18 Blood Pressure 113/53 L 138/64 Pulse Oximetry 95 93 Oxygen Delivery Method Room Air Room Air Oxygen Flow Rate 07/28/22 10:00 Temperature Pulse Rate 124 H Respiratory Rate 18 Blood Pressure Pulse Oximetry 94 Oxygen Delivery Method Room Air Oxygen Flow Rate BMI result Body Mass Index 29.2 <Janae Kong MD - Last Filed: 07/28/22 01:56> Vital Signs - 24 hr 07/27/22 19:28 07/27/22 20:00 07/27/22 20:48 Temperature 96.3 F L 97.9 F Pulse Rate 85 80 97 Respiratory Rate 20 22 H 20 Blood Pressure 130/89 132/81 128/71 Pulse Oximetry 97 93 89 L Oxygen Delivery Method Room Air Room Air Room Air Oxygen Flow Rate 07/27/22 22:00 07/27/22 23:49 07/28/22 02:10 Temperature 97.9 F 96.6 F L Pulse Rate 79 130 H 105 H Respiratory Rate 22 H 24 H 18 Blood Pressure 92/60 87/69 L 110/62 Pulse Oximetry 98 94 92 Oxygen Delivery Method Nasal Cannula Room Air Room Air Oxygen Flow Rate 2 07/28/22 04:13 07/28/22 06:38 07/28/22 08:00 Temperature 96.4 F L 98.2 F Pulse Rate 97 99 130 H Respiratory Rate 20 28 H 18 Blood Pressure 113/53 L 138/64 Pulse Oximetry 95 93 Oxygen Delivery Method Room Air Room Air Oxygen Flow Rate 07/28/22 10:00 Temperature Pulse Rate 124 H Respiratory Rate 18 Blood Pressure Pulse Oximetry 94 Oxygen Delivery Method Room Air Oxygen Flow Rate BMI result Body Mass Index 29.2 <Gabriele Rangel MD - Last Filed: 07/28/22 05:06> Vital Signs - 24 hr 07/27/22 19:28 07/27/22 20:00 07/27/22 20:48 Temperature 96.3 F L 97.9 F Pulse Rate 85 80 97 Respiratory Rate 20 22 H 20 Blood Pressure 130/89 132/81 128/71 Pulse Oximetry 97 93 89 L Oxygen Delivery Method Room Air Room Air Room Air Oxygen Flow Rate 07/27/22 22:00 07/27/22 23:49 07/28/22 02:10 Temperature 97.9 F 96.6 F L Pulse Rate 79 130 H 105 H Respiratory Rate 22 H 24 H 18 Blood Pressure 92/60 87/69 L 110/62 Pulse Oximetry 98 94 92 Oxygen Delivery Method Nasal Cannula Room Air Room Air Oxygen Flow Rate 2 07/28/22 04:13 07/28/22 06:38 07/28/22 08:00 Temperature 96.4 F L 98.2 F Pulse Rate 97 99 130 H Respiratory Rate 20 28 H 18 Blood Pressure 113/53 L 138/64 Pulse Oximetry 95 93 Oxygen Delivery Method Room Air Room Air Oxygen Flow Rate 07/28/22 10:00 Temperature Pulse Rate 124 H Respiratory Rate 18 Blood Pressure Pulse Oximetry 94 Oxygen Delivery Method Room Air Oxygen Flow Rate BMI result Body Mass Index 29.2 <Antoine Kam MD - Last Filed: 07/28/22 11:38> Const Other: Appearance: Alert. Oriented X3. No acute distress. Eyes: Pupils equal, round and reactive to light. ENT: Pharynx normal. Neck: Normal inspection. Neck supple. No lymph nodes noted. No crepitus CVS: Normal heart rate and rhythm. Pulses normal. Normal S1 and S2 Respiratory: No respiratory distress. Breath sounds normal. No Wheezing. No rales Abdomen: Soft and nontender. No rigidity. No distention. Skin: Skin warm and dry. Normal skin color. Normal skin turgor. Extremities: No lower extremity edema. No Lacerations. No Rash Neuro: Oriented X 3. No motor deficit. No sensory deficit. Moving all extremities. No slurred speech. CN 2 through 12 grossly intact Psych: calm, cooperative, normal affect <Janae Kong MD - Last Filed: 07/28/22 01:56> Course Course Course Narrative: -of patient's labs are pending. -patient is adamant that she did not hit her head or lose consciousness. Imaging of the head not indicated at this time. Patient is alert and oriented x3 <Janae Kong MD - Last Filed: 07/28/22 01:56> Reevaluation(s) Reevaluation #1: Patient has recurrent atrial fibrillation with rapid ventricular response. She responded well to Cardizem IV push previously. Will give 10 mg now plus oral Cardizem. <Gabriele Rangel MD - Last Filed: 07/28/22 05:06> Time: 05:06 <Gabriele Rangel MD - Last Filed: 07/28/22 05:06> Reevaluation #2: I did evaluate the patient and ordered her outpatient regimen which includes metoprolol. The patient has lack of insight as to why she is here and lack of insight about her health issues. I did talk to her daughter, Dori who believes that her mother has dementia which is undiagnosed. The patient believes that she is getting care from nursing staff especially at night which does not exist. The patient does have a visiting nurse that comes in to help with medications in the morning but has no other care. The patient is not taking care of her house and the daughter states that her house is a mess and she is contacted Elder [facility]. The patient did have a capacity evaluation 1 week prior but at this time I believe that the patient has no capacity to make her decisions especially since she has lack of insight and may have dementia. I did get a psychiatric consult and the patient was evaluated by our psychiatrist, Dr. Juma Black and he agrees that the patient lacks capacity to make decisions at this time. The patient was placed on a Section [address] Kong. The patient has atrial fibrillation with rapid ventricular rate which we have had difficulty controlling. I will discuss admission with the covering hospitalist. <Antoine Kam MD - Last Filed: 07/28/22 11:38> Time: 11:30 <Antoine Kam MD - Last Filed: 07/28/22 11:38> Medications Administered Generic Name Dose Route Start Last Admin Trade Name Freq PRN Reason Stop Dose Admin Insulin Human Lispro 0 unit 07/28/22 07:30 07/28/22 07:22 Insulin Lispro 100 Unit/Ml 3 Ml Vial SUBCUT 10 unit QIDACHS ANTONIO Administration Protocol Discontinued Medications Generic Name Dose Route Start Last Admin Trade Name Freq PRN Reason Stop Dose Admin Digoxin 0.25 mg 07/28/22 01:00 07/28/22 07:24 Digoxin 0.5 Mg/2 Ml Ampul IVPUSH 07/28/22 07:01 0.25 mg Q6H ANTONIO Administration Diltiazem HCl 10 mg 07/27/22 19:49 07/27/22 19:57 Diltiazem Hcl 50 Mg/10 Ml Vial IVPUSH 07/27/22 19:50 10 mg STAT STA Administration Diltiazem HCl 10 mg 07/27/22 20:43 07/27/22 20:59 Diltiazem Hcl 50 Mg/10 Ml Vial IVPUSH 07/27/22 20:44 10 mg STAT STA Administration Diltiazem HCl 10 mg 07/28/22 05:04 07/28/22 05:17 Diltiazem Hcl 50 Mg/10 Ml Vial IVPUSH 07/28/22 05:05 10 mg STAT STA Administration Diltiazem HCl 15 mg 07/28/22 05:05 07/28/22 05:15 Diltiazem Hcl 30 Mg Tablet PO 07/28/22 05:06 15 mg ONCE ONE Administration Protocol Calcium Gluconate 2 gm in 100 mls @ 50 mls/hr 07/27/22 23:25 07/28/22 05:08 Calcium Gluconate IV 07/28/22 01:24 Infused ONCE ONE Infusion Insulin Human Regular 10 unit 07/27/22 20:23 07/27/22 20:33 Insulin Regular, Human 100 Unit/Ml 3 Ml Vial IVPUSH 07/27/22 20:24 10 unit ONCE ONE Administration <Janae Kong MD - Last Filed: 07/28/22 01:56> Medications Administered Generic Name Dose Route Start Last Admin Trade Name Freq PRN Reason Stop Dose Admin Insulin Human Lispro 0 unit 07/28/22 07:30 07/28/22 07:22 Insulin Lispro 100 Unit/Ml 3 Ml Vial SUBCUT 10 unit QIDACHS ANTONIO Administration Protocol Discontinued Medications Generic Name Dose Route Start Last Admin Trade Name Freq PRN Reason Stop Dose Admin Digoxin 0.25 mg 07/28/22 01:00 07/28/22 07:24 Digoxin 0.5 Mg/2 Ml Ampul IVPUSH 07/28/22 07:01 0.25 mg Q6H ANTONIO Administration Diltiazem HCl 10 mg 07/27/22 19:49 07/27/22 19:57 Diltiazem Hcl 50 Mg/10 Ml Vial IVPUSH 07/27/22 19:50 10 mg STAT STA Administration Diltiazem HCl 10 mg 07/27/22 20:43 07/27/22 20:59 Diltiazem Hcl 50 Mg/10 Ml Vial IVPUSH 07/27/22 20:44 10 mg STAT STA Administration Diltiazem HCl 10 mg 07/28/22 05:04 07/28/22 05:17 Diltiazem Hcl 50 Mg/10 Ml Vial IVPUSH 07/28/22 05:05 10 mg STAT STA Administration Diltiazem HCl 15 mg 07/28/22 05:05 07/28/22 05:15 Diltiazem Hcl 30 Mg Tablet PO 07/28/22 05:06 15 mg ONCE ONE Administration Protocol Calcium Gluconate 2 gm in 100 mls @ 50 mls/hr 07/27/22 23:25 07/28/22 05:08 Calcium Gluconate IV 07/28/22 01:24 Infused ONCE ONE Infusion Insulin Human Regular 10 unit 07/27/22 20:23 07/27/22 20:33 Insulin Regular, Human 100 Unit/Ml 3 Ml Vial IVPUSH 07/27/22 20:24 10 unit ONCE ONE Administration <Gabriele Rangel MD - Last Filed: 07/28/22 05:06> Medications Administered Generic Name Dose Route Start Last Admin Trade Name Freq PRN Reason Stop Dose Admin Insulin Human Lispro 0 unit 07/28/22 07:30 07/28/22 07:22 Insulin Lispro 100 Unit/Ml 3 Ml Vial SUBCUT 10 unit QIDACHS ANTONIO Administration Protocol Discontinued Medications Generic Name Dose Route Start Last Admin Trade Name Freq PRN Reason Stop Dose Admin Digoxin 0.25 mg 07/28/22 01:00 07/28/22 07:24 Digoxin 0.5 Mg/2 Ml Ampul IVPUSH 07/28/22 07:01 0.25 mg Q6H ANTONIO Administration Diltiazem HCl 10 mg 07/27/22 19:49 07/27/22 19:57 Diltiazem Hcl 50 Mg/10 Ml Vial IVPUSH 07/27/22 19:50 10 mg STAT STA Administration Diltiazem HCl 10 mg 07/27/22 20:43 07/27/22 20:59 Diltiazem Hcl 50 Mg/10 Ml Vial IVPUSH 07/27/22 20:44 10 mg STAT STA Administration Diltiazem HCl 10 mg 07/28/22 05:04 07/28/22 05:17 Diltiazem Hcl 50 Mg/10 Ml Vial IVPUSH 07/28/22 05:05 10 mg STAT STA Administration Diltiazem HCl 15 mg 07/28/22 05:05 07/28/22 05:15 Diltiazem Hcl 30 Mg Tablet PO 07/28/22 05:06 15 mg ONCE ONE Administration Protocol Calcium Gluconate 2 gm in 100 mls @ 50 mls/hr 07/27/22 23:25 07/28/22 05:08 Calcium Gluconate IV 07/28/22 01:24 Infused ONCE ONE Infusion Insulin Human Regular 10 unit 07/27/22 20:23 07/27/22 20:33 Insulin Regular, Human 100 Unit/Ml 3 Ml Vial IVPUSH 07/27/22 20:24 10 unit ONCE ONE Administration <Antoine Kam MD - Last Filed: 07/28/22 11:38> Medical Decision Making Medical Decision Making MDM Narrative: -patient is in atrial fibrillation with RVR, EKG my interpretation: A fibrillation with RVR, heart rate 131, no ST segment depression or elevation, no T-wave inversion, QTC 448 -patient came in will on 2 L of oxygen. As patient was walking in her room and moving around the bed with oxygen 2, her O2 dropped to 87% with exertion. Without exertion, arrest and on room air, oxygen saturation 90%. Patient has not taking her morning medications because she has been on the floor all day. Patient is in AFib with RVR, patient receiving 10 mg of diltiazem IV push -patient received 2 doses of Cardizem IV push, 10 mg each. Patient is heart rate improved the low 100s but keeps going up to 130s back and forth. Patient will be started on a Cardizem drip. -patient's blood pressure is on the softer side, patient receiving calcium gluconate, then 1 blood pressure is better, she may receive the IV Lasix that was ordered earlier today. -patient received 10 units for hyperglycemia -patient had 1 episode of a blood pressure of 89 systolic. This was secondary to Cardizem, not sepsis. Patient's blood pressure improved, low 90s. -my interpretation of chest x-ray: CHF exacerbation -I discussed the patient with Dr. Rizvi, who agreed to admit the patient. However, patient states that she wants to leave against medical advice. -patient is alert and oriented, able to have a fairly normal conversation, occasional moments of memory loss with still able to have a coherent conversation. -patient is adamant that she does not want to be admitted to the hospital. -initially, I was considering starting a Section 12 from the patient, since capacity was in question. However, after discussing the patient with Dr. Rizvi, patient's previous admission, on July 21, 2022, which was 1 week ago, patient was seen by Psychiatry. Dr. Judith San evaluated the patient. Per psychiatrist's notes This patient does have capacity to make medical and placement decisions despite mild short term memory deficits.? She has a basic grasp of her medical history, her current situation and risks -we will cancel the admission. However, patient is willing to stay until the morning and continue treatment until then. Patient is willing to stay for case management physical therapy consult. Patient will likely benefit from more services at home. -in 2 days, patient will be evaluated at her home again by elderly affairs officer and a public health nurse. -we informed the patient's daughter about the psychiatry note the patient does have capacity and we cannot admit her to the hospital against the patient's will. The daughter understands, very frustrated with her mother. -case management and physical therapy consult pending in the morning. -patient declined admission, in the morning patient will be leaving against medical advice, -patient is completely aware of the risks of leaving against medical advice, patient repeated as she is aware that if she goes home her current condition, she can deteriorate and -I discussed the patient with Dr. Rangel who will be taking over the patient's care until the morning. <Janae Kong MD - Last Filed: 07/28/22 01:56> Admission/Observation Consideration of admission/observation: Escalation of care including admission/observation considered <Janae Kong MD - Last Filed: 07/28/22 01:56> Consult Healthcare Provider Management of the patient was discussed with: Hospitalist <Janae Kong MD - Last Filed: 07/28/22 01:56> Lab Data MDM Lab Attestation statement: I reviewed the patient's lab results. <Janae Kong MD - Last Filed: 07/28/22 01:56> Result Diagrams: 07/27/22 19:53 07/27/22 19:53 <Janae Kong MD - Last Filed: 07/28/22 01:56> Labs: Lab Results 07/27/22 07/27/22 07/27/22 Range/Units 19:27 19:53 19:53 WBC 12.8 H (4.8-10.8) X10*3/uL RBC 5.29 (4.20-5.50) X10*6/uL Hgb 15.2 (12.0-16.0) g/dl Hct 44.9 (37.0-47.0) % MCV 84.9 (80.0-98.0) fL MCH 28.7 (27.0-33.0) pg MCHC 33.9 (31.0-35.0) g/dl RDW 14.2 (11.0-16.0) % Plt Count 208 D (160-400) X10*3/uL MPV 10.0 (9.4-12.3) fL Immature Gran % (Auto) 0.5 H (0.0-0.4) % Neut % (Auto) 83.8 H (45-73) % Lymph % (Auto) 5.5 L (20-40) % [place] % (Auto) 9.8 (2-11) % Eos % (Auto) 0.2 (0-4) % Baso % (Auto) 0.2 (0-2) % Lymph # (Auto) 0.7 L (1.2-4.9) X10*3/uL [place] # (Auto) 1.3 H (0.1-1.2) X10*3/uL Eos # (Auto) 0.0 (0.0-0.4) X10*3/uL Baso # (Auto) 0.0 (0.0-0.2) X10*3/uL Abs Immat Gran (auto) 0.07 H (0.00-0.03) X10*3/uL Absolute Neuts (auto) 10.8 H (2.0-8.3) x10*3/uL Absolute Nucleated RBC 0.000 (0.0-0.012) X10*3/uL Nucleated RBC % (auto) 0.0 (0.0-0.2) /100WBC PT (10.0-13.1) SEC INR (0.9-1.1) VBG pH (7.32-7.43) VBG pCO2 mmHg VBG pO2 mmHg VBG HCO3 (22-26) mmol/L VBG O2 Saturation % VBG Base Excess mmol/L Sodium 138 (135-145) mmol/L Potassium 4.1 (3.3-5.1) mmol/L Chloride 102 (96-108) mmol/L Carbon Dioxide 24 (22-29) mmol/L Anion Gap 16 (12-20) BUN 26 H (9-16) mg/dL Creatinine 0.96 (0.5-1.4) mg/dL Estim Creat Clear Calc 41.5 Estimated GFR 56 POC Glucose 409 H* (60-115) mg/dL Random Glucose 461 H* (60-115) mg/dL Lactic Acid (0.5-2.0) mmol/L Lactic Acid F/U @ 2Hr (0.5-2.0) mmol/L Calcium 9.2 D (8.4-10.2) mg/dL Magnesium 1.8 (1.6-2.6) mg/dL Total Bilirubin 0.7 (0.0-1.0) mg/dL Direct Bilirubin 0.2 (0.0-0.5) mg/dL AST 44 H (5-31) U/L ALT 65 H (0-31) U/L Alkaline Phosphatase 118 H (39-117) U/L Total Creatine Kinase 180 H (26-140) U/L Troponin I High Sens (<3.5-17.0) ng/L B-Natriuretic Peptide (<100) pg/mL Total Protein 6.2 L (6.5-8.0) g/dL Albumin 3.3 L (3.5-5.0) g/dL TSH (0.32-4.0) uIU/mL Free T4 (0.71-1.85) ng/dL Urine Color Urine Appearance Urine pH (5.0-9.0) Ur Specific [place] (1.005-1.025) Urine Protein (Neg-Trace) mg/dL Urine Glucose (UA) (Negative) mg/dL Urine Ketones (Negative) mg/dL Urine Blood (Negative) Urine Nitrite (Negative) Ur Leukocyte Esterase (Negative) Urine RBC (0-2) /HPF Urine WBC (0-5) /HPF Ur Squamous Epith Cells (0-2) /HPF Urine Bacteria (None Seen) Hyaline Casts (0-2) /LPF 07/27/22 07/27/22 07/27/22 Range/Units 19:53 19:53 19:54 WBC (4.8-10.8) X10*3/uL RBC (4.20-5.50) X10*6/uL Hgb (12.0-16.0) g/dl Hct (37.0-47.0) % MCV (80.0-98.0) fL MCH (27.0-33.0) pg MCHC (31.0-35.0) g/dl RDW (11.0-16.0) % Plt Count (160-400) X10*3/uL MPV (9.4-12.3) fL Immature Gran % (Auto) (0.0-0.4) % Neut % (Auto) (45-73) % Lymph % (Auto) (20-40) % [place] % (Auto) (2-11) % Eos % (Auto) (0-4) % Baso % (Auto) (0-2) % Lymph # (Auto) (1.2-4.9) X10*3/uL [place] # (Auto) (0.1-1.2) X10*3/uL Eos # (Auto) (0.0-0.4) X10*3/uL Baso # (Auto) (0.0-0.2) X10*3/uL Abs Immat Gran (auto) (0.00-0.03) X10*3/uL Absolute Neuts (auto) (2.0-8.3) x10*3/uL Absolute Nucleated RBC (0.0-0.012) X10*3/uL Nucleated RBC % (auto) (0.0-0.2) /100WBC PT 11.9 (10.0-13.1) SEC INR 1.0 (0.9-1.1) VBG pH (7.32-7.43) VBG pCO2 mmHg VBG pO2 mmHg VBG HCO3 (22-26) mmol/L VBG O2 Saturation % VBG Base Excess mmol/L Sodium (135-145) mmol/L Potassium (3.3-5.1) mmol/L Chloride (96-108) mmol/L Carbon Dioxide (22-29) mmol/L Anion Gap (12-20) BUN (9-16) mg/dL Creatinine (0.5-1.4) mg/dL Estim Creat Clear Calc Estimated GFR POC Glucose (60-115) mg/dL Random Glucose (60-115) mg/dL Lactic Acid 2.4 H* (0.5-2.0) mmol/L Lactic Acid F/U @ 2Hr (0.5-2.0) mmol/L Calcium (8.4-10.2) mg/dL Magnesium (1.6-2.6) mg/dL Total Bilirubin (0.0-1.0) mg/dL Direct Bilirubin (0.0-0.5) mg/dL AST (5-31) U/L ALT (0-31) U/L Alkaline Phosphatase (39-117) U/L Total Creatine Kinase (26-140) U/L Troponin I High Sens 16.6 (<3.5-17.0) ng/L B-Natriuretic Peptide (<100) pg/mL Total Protein (6.5-8.0) g/dL Albumin (3.5-5.0) g/dL TSH (0.32-4.0) uIU/mL Free T4 (0.71-1.85) ng/dL Urine Color Urine Appearance Urine pH (5.0-9.0) Ur Specific [place] (1.005-1.025) Urine Protein (Neg-Trace) mg/dL Urine Glucose (UA) (Negative) mg/dL Urine Ketones (Negative) mg/dL Urine Blood (Negative) Urine Nitrite (Negative) Ur Leukocyte Esterase (Negative) Urine RBC (0-2) /HPF Urine WBC (0-5) /HPF Ur Squamous Epith Cells (0-2) /HPF Urine Bacteria (None Seen) Hyaline Casts (0-2) /LPF 07/27/22 07/27/22 07/27/22 Range/Units 19:54 19:54 20:00 WBC (4.8-10.8) X10*3/uL RBC (4.20-5.50) X10*6/uL Hgb (12.0-16.0) g/dl Hct (37.0-47.0) % MCV (80.0-98.0) fL MCH (27.0-33.0) pg MCHC (31.0-35.0) g/dl RDW (11.0-16.0) % Plt Count (160-400) X10*3/uL MPV (9.4-12.3) fL Immature Gran % (Auto) (0.0-0.4) % Neut % (Auto) (45-73) % Lymph % (Auto) (20-40) % [place] % (Auto) (2-11) % Eos % (Auto) (0-4) % Baso % (Auto) (0-2) % Lymph # (Auto) (1.2-4.9) X10*3/uL [place] # (Auto) (0.1-1.2) X10*3/uL Eos # (Auto) (0.0-0.4) X10*3/uL Baso # (Auto) (0.0-0.2) X10*3/uL Abs Immat Gran (auto) (0.00-0.03) X10*3/uL Absolute Neuts (auto) (2.0-8.3) x10*3/uL Absolute Nucleated RBC (0.0-0.012) X10*3/uL Nucleated RBC % (auto) (0.0-0.2) /100WBC PT (10.0-13.1) SEC INR (0.9-1.1) VBG pH 7.46 H (7.32-7.43) VBG pCO2 38 mmHg VBG pO2 55 mmHg VBG HCO3 27 H (22-26) mmol/L VBG O2 Saturation 86.0 % VBG Base Excess 4.2 mmol/L Sodium (135-145) mmol/L Potassium (3.3-5.1) mmol/L Chloride (96-108) mmol/L Carbon Dioxide (22-29) mmol/L Anion Gap (12-20) BUN (9-16) mg/dL Creatinine (0.5-1.4) mg/dL Estim Creat Clear Calc Estimated GFR POC Glucose (60-115) mg/dL Random Glucose (60-115) mg/dL Lactic Acid (0.5-2.0) mmol/L Lactic Acid F/U @ 2Hr (0.5-2.0) mmol/L Calcium (8.4-10.2) mg/dL Magnesium (1.6-2.6) mg/dL Total Bilirubin (0.0-1.0) mg/dL Direct Bilirubin (0.0-0.5) mg/dL AST (5-31) U/L ALT (0-31) U/L Alkaline Phosphatase (39-117) U/L Total Creatine Kinase (26-140) U/L Troponin I High Sens (<3.5-17.0) ng/L B-Natriuretic Peptide 213 H (<100) pg/mL Total Protein (6.5-8.0) g/dL Albumin (3.5-5.0) g/dL TSH 6.13 H (0.32-4.0) uIU/mL Free T4 0.99 (0.71-1.85) ng/dL Urine Color Urine Appearance Urine pH (5.0-9.0) Ur Specific [place] (1.005-1.025) Urine Protein (Neg-Trace) mg/dL Urine Glucose (UA) (Negative) mg/dL Urine Ketones (Negative) mg/dL Urine Blood (Negative) Urine Nitrite (Negative) Ur Leukocyte Esterase (Negative) Urine RBC (0-2) /HPF Urine WBC (0-5) /HPF Ur Squamous Epith Cells (0-2) /HPF Urine Bacteria (None Seen) Hyaline Casts (0-2) /LPF 07/27/22 07/27/22 07/27/22 Range/Units 20:14 22:20 22:55 WBC (4.8-10.8) X10*3/uL RBC (4.20-5.50) X10*6/uL Hgb (12.0-16.0) g/dl Hct (37.0-47.0) % MCV (80.0-98.0) fL MCH (27.0-33.0) pg MCHC (31.0-35.0) g/dl RDW (11.0-16.0) % Plt Count (160-400) X10*3/uL MPV (9.4-12.3) fL Immature Gran % (Auto) (0.0-0.4) % Neut % (Auto) (45-73) % Lymph % (Auto) (20-40) % [place] % (Auto) (2-11) % Eos % (Auto) (0-4) % Baso % (Auto) (0-2) % Lymph # (Auto) (1.2-4.9) X10*3/uL [place] # (Auto) (0.1-1.2) X10*3/uL Eos # (Auto) (0.0-0.4) X10*3/uL Baso # (Auto) (0.0-0.2) X10*3/uL Abs Immat Gran (auto) (0.00-0.03) X10*3/uL Absolute Neuts (auto) (2.0-8.3) x10*3/uL Absolute Nucleated RBC (0.0-0.012) X10*3/uL Nucleated RBC % (auto) (0.0-0.2) /100WBC PT (10.0-13.1) SEC INR (0.9-1.1) VBG pH (7.32-7.43) VBG pCO2 mmHg VBG pO2 mmHg VBG HCO3 (22-26) mmol/L VBG O2 Saturation % VBG Base Excess mmol/L Sodium (135-145) mmol/L Potassium (3.3-5.1) mmol/L Chloride (96-108) mmol/L Carbon Dioxide (22-29) mmol/L Anion Gap (12-20) BUN (9-16) mg/dL Creatinine (0.5-1.4) mg/dL Estim Creat Clear Calc Estimated GFR POC Glucose 306 H (60-115) mg/dL Random Glucose (60-115) mg/dL Lactic Acid (0.5-2.0) mmol/L Lactic Acid F/U @ 2Hr 4.2 H* (0.5-2.0) mmol/L Calcium (8.4-10.2) mg/dL Magnesium (1.6-2.6) mg/dL Total Bilirubin (0.0-1.0) mg/dL Direct Bilirubin (0.0-0.5) mg/dL AST (5-31) U/L ALT (0-31) U/L Alkaline Phosphatase (39-117) U/L Total Creatine Kinase (26-140) U/L Troponin I High Sens (<3.5-17.0) ng/L B-Natriuretic Peptide (<100) pg/mL Total Protein (6.5-8.0) g/dL Albumin (3.5-5.0) g/dL TSH (0.32-4.0) uIU/mL Free T4 (0.71-1.85) ng/dL Urine Color Yellow Urine Appearance Clear Urine pH 5.5 (5.0-9.0) Ur Specific [place] >= 1.030 H (1.005-1.025) Urine Protein 30 (1+) H (Neg-Trace) mg/dL Urine Glucose (UA) >=1000 H (Negative) mg/dL Urine Ketones 15 (Negative) mg/dL Urine Blood Small (1+) H (Negative) Urine Nitrite Negative (Negative) Ur Leukocyte Esterase Negative (Negative) Urine RBC 3-5 H (0-2) /HPF Urine WBC 6-10 (0-5) /HPF Ur Squamous Epith Cells 3-5 (0-2) /HPF Urine Bacteria None Seen (None Seen) Hyaline Casts 0-2 (0-2) /LPF 07/28/22 07/28/22 07/28/22 Range/Units 02:25 07:02 08:41 WBC (4.8-10.8) X10*3/uL RBC (4.20-5.50) X10*6/uL Hgb (12.0-16.0) g/dl Hct (37.0-47.0) % MCV (80.0-98.0) fL MCH (27.0-33.0) pg MCHC (31.0-35.0) g/dl RDW (11.0-16.0) % Plt Count (160-400) X10*3/uL MPV (9.4-12.3) fL Immature Gran % (Auto) (0.0-0.4) % Neut % (Auto) (45-73) % Lymph % (Auto) (20-40) % [place] % (Auto) (2-11) % Eos % (Auto) (0-4) % Baso % (Auto) (0-2) % Lymph # (Auto) (1.2-4.9) X10*3/uL [place] # (Auto) (0.1-1.2) X10*3/uL Eos # (Auto) (0.0-0.4) X10*3/uL Baso # (Auto) (0.0-0.2) X10*3/uL Abs Immat Gran (auto) (0.00-0.03) X10*3/uL Absolute Neuts (auto) (2.0-8.3) x10*3/uL Absolute Nucleated RBC (0.0-0.012) X10*3/uL Nucleated RBC % (auto) (0.0-0.2) /100WBC PT (10.0-13.1) SEC INR (0.9-1.1) VBG pH (7.32-7.43) VBG pCO2 mmHg VBG pO2 mmHg VBG HCO3 (22-26) mmol/L VBG O2 Saturation % VBG Base Excess mmol/L Sodium (135-145) mmol/L Potassium (3.3-5.1) mmol/L Chloride (96-108) mmol/L Carbon Dioxide (22-29) mmol/L Anion Gap (12-20) BUN (9-16) mg/dL Creatinine (0.5-1.4) mg/dL Estim Creat Clear Calc Estimated GFR POC Glucose 292 H 373 H* 328 H (60-115) mg/dL Random Glucose (60-115) mg/dL Lactic Acid (0.5-2.0) mmol/L Lactic Acid F/U @ 2Hr (0.5-2.0) mmol/L Calcium (8.4-10.2) mg/dL Magnesium (1.6-2.6) mg/dL Total Bilirubin (0.0-1.0) mg/dL Direct Bilirubin (0.0-0.5) mg/dL AST (5-31) U/L ALT (0-31) U/L Alkaline Phosphatase (39-117) U/L Total Creatine Kinase (26-140) U/L Troponin I High Sens (<3.5-17.0) ng/L B-Natriuretic Peptide (<100) pg/mL Total Protein (6.5-8.0) g/dL Albumin (3.5-5.0) g/dL TSH (0.32-4.0) uIU/mL Free T4 (0.71-1.85) ng/dL Urine Color Urine Appearance Urine pH (5.0-9.0) Ur Specific [place] (1.005-1.025) Urine Protein (Neg-Trace) mg/dL Urine Glucose (UA) (Negative) mg/dL Urine Ketones (Negative) mg/dL Urine Blood (Negative) Urine Nitrite (Negative) Ur Leukocyte Esterase (Negative) Urine RBC (0-2) /HPF Urine WBC (0-5) /HPF Ur Squamous Epith Cells (0-2) /HPF Urine Bacteria (None Seen) Hyaline Casts (0-2) /LPF <Janae Kong MD - Last Filed: 07/28/22 01:56> Lab Results 07/27/22 07/27/22 07/27/22 Range/Units 19:27 19:53 19:53 WBC 12.8 H (4.8-10.8) X10*3/uL RBC 5.29 (4.20-5.50) X10*6/uL Hgb 15.2 (12.0-16.0) g/dl Hct 44.9 (37.0-47.0) % MCV 84.9 (80.0-98.0) fL MCH 28.7 (27.0-33.0) pg MCHC 33.9 (31.0-35.0) g/dl RDW 14.2 (11.0-16.0) % Plt Count 208 D (160-400) X10*3/uL MPV 10.0 (9.4-12.3) fL Immature Gran % (Auto) 0.5 H (0.0-0.4) % Neut % (Auto) 83.8 H (45-73) % Lymph % (Auto) 5.5 L (20-40) % [place] % (Auto) 9.8 (2-11) % Eos % (Auto) 0.2 (0-4) % Baso % (Auto) 0.2 (0-2) % Lymph # (Auto) 0.7 L (1.2-4.9) X10*3/uL [place] # (Auto) 1.3 H (0.1-1.2) X10*3/uL Eos # (Auto) 0.0 (0.0-0.4) X10*3/uL Baso # (Auto) 0.0 (0.0-0.2) X10*3/uL Abs Immat Gran (auto) 0.07 H (0.00-0.03) X10*3/uL Absolute Neuts (auto) 10.8 H (2.0-8.3) x10*3/uL Absolute Nucleated RBC 0.000 (0.0-0.012) X10*3/uL Nucleated RBC % (auto) 0.0 (0.0-0.2) /100WBC PT (10.0-13.1) SEC INR (0.9-1.1) VBG pH (7.32-7.43) VBG pCO2 mmHg VBG pO2 mmHg VBG HCO3 (22-26) mmol/L VBG O2 Saturation % VBG Base Excess mmol/L Sodium 138 (135-145) mmol/L Potassium 4.1 (3.3-5.1) mmol/L Chloride 102 (96-108) mmol/L Carbon Dioxide 24 (22-29) mmol/L Anion Gap 16 (12-20) BUN 26 H (9-16) mg/dL Creatinine 0.96 (0.5-1.4) mg/dL Estim Creat Clear Calc 41.5 Estimated GFR 56 POC Glucose 409 H* (60-115) mg/dL Random Glucose 461 H* (60-115) mg/dL Lactic Acid (0.5-2.0) mmol/L Lactic Acid F/U @ 2Hr (0.5-2.0) mmol/L Calcium 9.2 D (8.4-10.2) mg/dL Magnesium 1.8 (1.6-2.6) mg/dL Total Bilirubin 0.7 (0.0-1.0) mg/dL Direct Bilirubin 0.2 (0.0-0.5) mg/dL AST 44 H (5-31) U/L ALT 65 H (0-31) U/L Alkaline Phosphatase 118 H (39-117) U/L Total Creatine Kinase 180 H (26-140) U/L Troponin I High Sens (<3.5-17.0) ng/L B-Natriuretic Peptide (<100) pg/mL Total Protein 6.2 L (6.5-8.0) g/dL Albumin 3.3 L (3.5-5.0) g/dL TSH (0.32-4.0) uIU/mL Free T4 (0.71-1.85) ng/dL Urine Color Urine Appearance Urine pH (5.0-9.0) Ur Specific [place] (1.005-1.025) Urine Protein (Neg-Trace) mg/dL Urine Glucose (UA) (Negative) mg/dL Urine Ketones (Negative) mg/dL Urine Blood (Negative) Urine Nitrite (Negative) Ur Leukocyte Esterase (Negative) Urine RBC (0-2) /HPF Urine WBC (0-5) /HPF Ur Squamous Epith Cells (0-2) /HPF Urine Bacteria (None Seen) Hyaline Casts (0-2) /LPF 07/27/22 07/27/22 07/27/22 Range/Units 19:53 19:53 19:54 WBC (4.8-10.8) X10*3/uL RBC (4.20-5.50) X10*6/uL Hgb (12.0-16.0) g/dl Hct (37.0-47.0) % MCV (80.0-98.0) fL MCH (27.0-33.0) pg MCHC (31.0-35.0) g/dl RDW (11.0-16.0) % Plt Count (160-400) X10*3/uL MPV (9.4-12.3) fL Immature Gran % (Auto) (0.0-0.4) % Neut % (Auto) (45-73) % Lymph % (Auto) (20-40) % [place] % (Auto) (2-11) % Eos % (Auto) (0-4) % Baso % (Auto) (0-2) % Lymph # (Auto) (1.2-4.9) X10*3/uL [place] # (Auto) (0.1-1.2) X10*3/uL Eos # (Auto) (0.0-0.4) X10*3/uL Baso # (Auto) (0.0-0.2) X10*3/uL Abs Immat Gran (auto) (0.00-0.03) X10*3/uL Absolute Neuts (auto) (2.0-8.3) x10*3/uL Absolute Nucleated RBC (0.0-0.012) X10*3/uL Nucleated RBC % (auto) (0.0-0.2) /100WBC PT 11.9 (10.0-13.1) SEC INR 1.0 (0.9-1.1) VBG pH (7.32-7.43) VBG pCO2 mmHg VBG pO2 mmHg VBG HCO3 (22-26) mmol/L VBG O2 Saturation % VBG Base Excess mmol/L Sodium (135-145) mmol/L Potassium (3.3-5.1) mmol/L Chloride (96-108) mmol/L Carbon Dioxide (22-29) mmol/L Anion Gap (12-20) BUN (9-16) mg/dL Creatinine (0.5-1.4) mg/dL Estim Creat Clear Calc Estimated GFR POC Glucose (60-115) mg/dL Random Glucose (60-115) mg/dL Lactic Acid 2.4 H* (0.5-2.0) mmol/L Lactic Acid F/U @ 2Hr (0.5-2.0) mmol/L Calcium (8.4-10.2) mg/dL Magnesium (1.6-2.6) mg/dL Total Bilirubin (0.0-1.0) mg/dL Direct Bilirubin (0.0-0.5) mg/dL AST (5-31) U/L ALT (0-31) U/L Alkaline Phosphatase (39-117) U/L Total Creatine Kinase (26-140) U/L Troponin I High Sens 16.6 (<3.5-17.0) ng/L B-Natriuretic Peptide (<100) pg/mL Total Protein (6.5-8.0) g/dL Albumin (3.5-5.0) g/dL TSH (0.32-4.0) uIU/mL Free T4 (0.71-1.85) ng/dL Urine Color Urine Appearance Urine pH (5.0-9.0) Ur Specific [place] (1.005-1.025) Urine Protein (Neg-Trace) mg/dL Urine Glucose (UA) (Negative) mg/dL Urine Ketones (Negative) mg/dL Urine Blood (Negative) Urine Nitrite (Negative) Ur Leukocyte Esterase (Negative) Urine RBC (0-2) /HPF Urine WBC (0-5) /HPF Ur Squamous Epith Cells (0-2) /HPF Urine Bacteria (None Seen) Hyaline Casts (0-2) /LPF 07/27/22 07/27/22 07/27/22 Range/Units 19:54 19:54 20:00 WBC (4.8-10.8) X10*3/uL RBC (4.20-5.50) X10*6/uL Hgb (12.0-16.0) g/dl Hct (37.0-47.0) % MCV (80.0-98.0) fL MCH (27.0-33.0) pg MCHC (31.0-35.0) g/dl RDW (11.0-16.0) % Plt Count (160-400) X10*3/uL MPV (9.4-12.3) fL Immature Gran % (Auto) (0.0-0.4) % Neut % (Auto) (45-73) % Lymph % (Auto) (20-40) % [place] % (Auto) (2-11) % Eos % (Auto) (0-4) % Baso % (Auto) (0-2) % Lymph # (Auto) (1.2-4.9) X10*3/uL [place] # (Auto) (0.1-1.2) X10*3/uL Eos # (Auto) (0.0-0.4) X10*3/uL Baso # (Auto) (0.0-0.2) X10*3/uL Abs Immat Gran (auto) (0.00-0.03) X10*3/uL Absolute Neuts (auto) (2.0-8.3) x10*3/uL Absolute Nucleated RBC (0.0-0.012) X10*3/uL Nucleated RBC % (auto) (0.0-0.2) /100WBC PT (10.0-13.1) SEC INR (0.9-1.1) VBG pH 7.46 H (7.32-7.43) VBG pCO2 38 mmHg VBG pO2 55 mmHg VBG HCO3 27 H (22-26) mmol/L VBG O2 Saturation 86.0 % VBG Base Excess 4.2 mmol/L Sodium (135-145) mmol/L Potassium (3.3-5.1) mmol/L Chloride (96-108) mmol/L Carbon Dioxide (22-29) mmol/L Anion Gap (12-20) BUN (9-16) mg/dL Creatinine (0.5-1.4) mg/dL Estim Creat Clear Calc Estimated GFR POC Glucose (60-115) mg/dL Random Glucose (60-115) mg/dL Lactic Acid (0.5-2.0) mmol/L Lactic Acid F/U @ 2Hr (0.5-2.0) mmol/L Calcium (8.4-10.2) mg/dL Magnesium (1.6-2.6) mg/dL Total Bilirubin (0.0-1.0) mg/dL Direct Bilirubin (0.0-0.5) mg/dL AST (5-31) U/L ALT (0-31) U/L Alkaline Phosphatase (39-117) U/L Total Creatine Kinase (26-140) U/L Troponin I High Sens (<3.5-17.0) ng/L B-Natriuretic Peptide 213 H (<100) pg/mL Total Protein (6.5-8.0) g/dL Albumin (3.5-5.0) g/dL TSH 6.13 H (0.32-4.0) uIU/mL Free T4 0.99 (0.71-1.85) ng/dL Urine Color Urine Appearance Urine pH (5.0-9.0) Ur Specific [place] (1.005-1.025) Urine Protein (Neg-Trace) mg/dL Urine Glucose (UA) (Negative) mg/dL Urine Ketones (Negative) mg/dL Urine Blood (Negative) Urine Nitrite (Negative) Ur Leukocyte Esterase (Negative) Urine RBC (0-2) /HPF Urine WBC (0-5) /HPF Ur Squamous Epith Cells (0-2) /HPF Urine Bacteria (None Seen) Hyaline Casts (0-2) /LPF 07/27/22 07/27/22 07/27/22 Range/Units 20:14 22:20 22:55 WBC (4.8-10.8) X10*3/uL RBC (4.20-5.50) X10*6/uL Hgb (12.0-16.0) g/dl Hct (37.0-47.0) % MCV (80.0-98.0) fL MCH (27.0-33.0) pg MCHC (31.0-35.0) g/dl RDW (11.0-16.0) % Plt Count (160-400) X10*3/uL MPV (9.4-12.3) fL Immature Gran % (Auto) (0.0-0.4) % Neut % (Auto) (45-73) % Lymph % (Auto) (20-40) % [place] % (Auto) (2-11) % Eos % (Auto) (0-4) % Baso % (Auto) (0-2) % Lymph # (Auto) (1.2-4.9) X10*3/uL [place] # (Auto) (0.1-1.2) X10*3/uL Eos # (Auto) (0.0-0.4) X10*3/uL Baso # (Auto) (0.0-0.2) X10*3/uL Abs Immat Gran (auto) (0.00-0.03) X10*3/uL Absolute Neuts (auto) (2.0-8.3) x10*3/uL Absolute Nucleated RBC (0.0-0.012) X10*3/uL Nucleated RBC % (auto) (0.0-0.2) /100WBC PT (10.0-13.1) SEC INR (0.9-1.1) VBG pH (7.32-7.43) VBG pCO2 mmHg VBG pO2 mmHg VBG HCO3 (22-26) mmol/L VBG O2 Saturation % VBG Base Excess mmol/L Sodium (135-145) mmol/L Potassium (3.3-5.1) mmol/L Chloride (96-108) mmol/L Carbon Dioxide (22-29) mmol/L Anion Gap (12-20) BUN (9-16) mg/dL Creatinine (0.5-1.4) mg/dL Estim Creat Clear Calc Estimated GFR POC Glucose 306 H (60-115) mg/dL Random Glucose (60-115) mg/dL Lactic Acid (0.5-2.0) mmol/L Lactic Acid F/U @ 2Hr 4.2 H* (0.5-2.0) mmol/L Calcium (8.4-10.2) mg/dL Magnesium (1.6-2.6) mg/dL Total Bilirubin (0.0-1.0) mg/dL Direct Bilirubin (0.0-0.5) mg/dL AST (5-31) U/L ALT (0-31) U/L Alkaline Phosphatase (39-117) U/L Total Creatine Kinase (26-140) U/L Troponin I High Sens (<3.5-17.0) ng/L B-Natriuretic Peptide (<100) pg/mL Total Protein (6.5-8.0) g/dL Albumin (3.5-5.0) g/dL TSH (0.32-4.0) uIU/mL Free T4 (0.71-1.85) ng/dL Urine Color Yellow Urine Appearance Clear Urine pH 5.5 (5.0-9.0) Ur Specific [place] >= 1.030 H (1.005-1.025) Urine Protein 30 (1+) H (Neg-Trace) mg/dL Urine Glucose (UA) >=1000 H (Negative) mg/dL Urine Ketones 15 (Negative) mg/dL Urine Blood Small (1+) H (Negative) Urine Nitrite Negative (Negative) Ur Leukocyte Esterase Negative (Negative) Urine RBC 3-5 H (0-2) /HPF Urine WBC 6-10 (0-5) /HPF Ur Squamous Epith Cells 3-5 (0-2) /HPF Urine Bacteria None Seen (None Seen) Hyaline Casts 0-2 (0-2) /LPF 07/28/22 07/28/22 07/28/22 Range/Units 02:25 07:02 08:41 WBC (4.8-10.8) X10*3/uL RBC (4.20-5.50) X10*6/uL Hgb (12.0-16.0) g/dl Hct (37.0-47.0) % MCV (80.0-98.0) fL MCH (27.0-33.0) pg MCHC (31.0-35.0) g/dl RDW (11.0-16.0) % Plt Count (160-400) X10*3/uL MPV (9.4-12.3) fL Immature Gran % (Auto) (0.0-0.4) % Neut % (Auto) (45-73) % Lymph % (Auto) (20-40) % [place] % (Auto) (2-11) % Eos % (Auto) (0-4) % Baso % (Auto) (0-2) % Lymph # (Auto) (1.2-4.9) X10*3/uL [place] # (Auto) (0.1-1.2) X10*3/uL Eos # (Auto) (0.0-0.4) X10*3/uL Baso # (Auto) (0.0-0.2) X10*3/uL Abs Immat Gran (auto) (0.00-0.03) X10*3/uL Absolute Neuts (auto) (2.0-8.3) x10*3/uL Absolute Nucleated RBC (0.0-0.012) X10*3/uL Nucleated RBC % (auto) (0.0-0.2) /100WBC PT (10.0-13.1) SEC INR (0.9-1.1) VBG pH (7.32-7.43) VBG pCO2 mmHg VBG pO2 mmHg VBG HCO3 (22-26) mmol/L VBG O2 Saturation % VBG Base Excess mmol/L Sodium (135-145) mmol/L Potassium (3.3-5.1) mmol/L Chloride (96-108) mmol/L Carbon Dioxide (22-29) mmol/L Anion Gap (12-20) BUN (9-16) mg/dL Creatinine (0.5-1.4) mg/dL Estim Creat Clear Calc Estimated GFR POC Glucose 292 H 373 H* 328 H (60-115) mg/dL Random Glucose (60-115) mg/dL Lactic Acid (0.5-2.0) mmol/L Lactic Acid F/U @ 2Hr (0.5-2.0) mmol/L Calcium (8.4-10.2) mg/dL Magnesium (1.6-2.6) mg/dL Total Bilirubin (0.0-1.0) mg/dL Direct Bilirubin (0.0-0.5) mg/dL AST (5-31) U/L ALT (0-31) U/L Alkaline Phosphatase (39-117) U/L Total Creatine Kinase (26-140) U/L Troponin I High Sens (<3.5-17.0) ng/L B-Natriuretic Peptide (<100) pg/mL Total Protein (6.5-8.0) g/dL Albumin (3.5-5.0) g/dL TSH (0.32-4.0) uIU/mL Free T4 (0.71-1.85) ng/dL Urine Color Urine Appearance Urine pH (5.0-9.0) Ur Specific [place] (1.005-1.025) Urine Protein (Neg-Trace) mg/dL Urine Glucose (UA) (Negative) mg/dL Urine Ketones (Negative) mg/dL Urine Blood (Negative) Urine Nitrite (Negative) Ur Leukocyte Esterase (Negative) Urine RBC (0-2) /HPF Urine WBC (0-5) /HPF Ur Squamous Epith Cells (0-2) /HPF Urine Bacteria (None Seen) Hyaline Casts (0-2) /LPF <Gabriele Rangel MD - Last Filed: 07/28/22 05:06> Lab Results 07/27/22 07/27/22 07/27/22 Range/Units 19:27 19:53 19:53 WBC 12.8 H (4.8-10.8) X10*3/uL RBC 5.29 (4.20-5.50) X10*6/uL Hgb 15.2 (12.0-16.0) g/dl Hct 44.9 (37.0-47.0) % MCV 84.9 (80.0-98.0) fL MCH 28.7 (27.0-33.0) pg MCHC 33.9 (31.0-35.0) g/dl RDW 14.2 (11.0-16.0) % Plt Count 208 D (160-400) X10*3/uL MPV 10.0 (9.4-12.3) fL Immature Gran % (Auto) 0.5 H (0.0-0.4) % Neut % (Auto) 83.8 H (45-73) % Lymph % (Auto) 5.5 L (20-40) % [place] % (Auto) 9.8 (2-11) % Eos % (Auto) 0.2 (0-4) % Baso % (Auto) 0.2 (0-2) % Lymph # (Auto) 0.7 L (1.2-4.9) X10*3/uL [place] # (Auto) 1.3 H (0.1-1.2) X10*3/uL Eos # (Auto) 0.0 (0.0-0.4) X10*3/uL Baso # (Auto) 0.0 (0.0-0.2) X10*3/uL Abs Immat Gran (auto) 0.07 H (0.00-0.03) X10*3/uL Absolute Neuts (auto) 10.8 H (2.0-8.3) x10*3/uL Absolute Nucleated RBC 0.000 (0.0-0.012) X10*3/uL Nucleated RBC % (auto) 0.0 (0.0-0.2) /100WBC PT (10.0-13.1) SEC INR (0.9-1.1) VBG pH (7.32-7.43) VBG pCO2 mmHg VBG pO2 mmHg VBG HCO3 (22-26) mmol/L VBG O2 Saturation % VBG Base Excess mmol/L Sodium 138 (135-145) mmol/L Potassium 4.1 (3.3-5.1) mmol/L Chloride 102 (96-108) mmol/L Carbon Dioxide 24 (22-29) mmol/L Anion Gap 16 (12-20) BUN 26 H (9-16) mg/dL Creatinine 0.96 (0.5-1.4) mg/dL Estim Creat Clear Calc 41.5 Estimated GFR 56 POC Glucose 409 H* (60-115) mg/dL Random Glucose 461 H* (60-115) mg/dL Lactic Acid (0.5-2.0) mmol/L Lactic Acid F/U @ 2Hr (0.5-2.0) mmol/L Calcium 9.2 D (8.4-10.2) mg/dL Magnesium 1.8 (1.6-2.6) mg/dL Total Bilirubin 0.7 (0.0-1.0) mg/dL Direct Bilirubin 0.2 (0.0-0.5) mg/dL AST 44 H (5-31) U/L ALT 65 H (0-31) U/L Alkaline Phosphatase 118 H (39-117) U/L Total Creatine Kinase 180 H (26-140) U/L Troponin I High Sens (<3.5-17.0) ng/L B-Natriuretic Peptide (<100) pg/mL Total Protein 6.2 L (6.5-8.0) g/dL Albumin 3.3 L (3.5-5.0) g/dL TSH (0.32-4.0) uIU/mL Free T4 (0.71-1.85) ng/dL Urine Color Urine Appearance Urine pH (5.0-9.0) Ur Specific [place] (1.005-1.025) Urine Protein (Neg-Trace) mg/dL Urine Glucose (UA) (Negative) mg/dL Urine Ketones (Negative) mg/dL Urine Blood (Negative) Urine Nitrite (Negative) Ur Leukocyte Esterase (Negative) Urine RBC (0-2) /HPF Urine WBC (0-5) /HPF Ur Squamous Epith Cells (0-2) /HPF Urine Bacteria (None Seen) Hyaline Casts (0-2) /LPF 07/27/22 07/27/22 07/27/22 Range/Units 19:53 19:53 19:54 WBC (4.8-10.8) X10*3/uL RBC (4.20-5.50) X10*6/uL Hgb (12.0-16.0) g/dl Hct (37.0-47.0) % MCV (80.0-98.0) fL MCH (27.0-33.0) pg MCHC (31.0-35.0) g/dl RDW (11.0-16.0) % Plt Count (160-400) X10*3/uL MPV (9.4-12.3) fL Immature Gran % (Auto) (0.0-0.4) % Neut % (Auto) (45-73) % Lymph % (Auto) (20-40) % [place] % (Auto) (2-11) % Eos % (Auto) (0-4) % Baso % (Auto) (0-2) % Lymph # (Auto) (1.2-4.9) X10*3/uL [place] # (Auto) (0.1-1.2) X10*3/uL Eos # (Auto) (0.0-0.4) X10*3/uL Baso # (Auto) (0.0-0.2) X10*3/uL Abs Immat Gran (auto) (0.00-0.03) X10*3/uL Absolute Neuts (auto) (2.0-8.3) x10*3/uL Absolute Nucleated RBC (0.0-0.012) X10*3/uL Nucleated RBC % (auto) (0.0-0.2) /100WBC PT 11.9 (10.0-13.1) SEC INR 1.0 (0.9-1.1) VBG pH (7.32-7.43) VBG pCO2 mmHg VBG pO2 mmHg VBG HCO3 (22-26) mmol/L VBG O2 Saturation % VBG Base Excess mmol/L Sodium (135-145) mmol/L Potassium (3.3-5.1) mmol/L Chloride (96-108) mmol/L Carbon Dioxide (22-29) mmol/L Anion Gap (12-20) BUN (9-16) mg/dL Creatinine (0.5-1.4) mg/dL Estim Creat Clear Calc Estimated GFR POC Glucose (60-115) mg/dL Random Glucose (60-115) mg/dL Lactic Acid 2.4 H* (0.5-2.0) mmol/L Lactic Acid F/U @ 2Hr (0.5-2.0) mmol/L Calcium (8.4-10.2) mg/dL Magnesium (1.6-2.6) mg/dL Total Bilirubin (0.0-1.0) mg/dL Direct Bilirubin (0.0-0.5) mg/dL AST (5-31) U/L ALT (0-31) U/L Alkaline Phosphatase (39-117) U/L Total Creatine Kinase (26-140) U/L Troponin I High Sens 16.6 (<3.5-17.0) ng/L B-Natriuretic Peptide (<100) pg/mL Total Protein (6.5-8.0) g/dL Albumin (3.5-5.0) g/dL TSH (0.32-4.0) uIU/mL Free T4 (0.71-1.85) ng/dL Urine Color Urine Appearance Urine pH (5.0-9.0) Ur Specific [place] (1.005-1.025) Urine Protein (Neg-Trace) mg/dL Urine Glucose (UA) (Negative) mg/dL Urine Ketones (Negative) mg/dL Urine Blood (Negative) Urine Nitrite (Negative) Ur Leukocyte Esterase (Negative) Urine RBC (0-2) /HPF Urine WBC (0-5) /HPF Ur Squamous Epith Cells (0-2) /HPF Urine Bacteria (None Seen) Hyaline Casts (0-2) /LPF 07/27/22 07/27/22 07/27/22 Range/Units 19:54 19:54 20:00 WBC (4.8-10.8) X10*3/uL RBC (4.20-5.50) X10*6/uL Hgb (12.0-16.0) g/dl Hct (37.0-47.0) % MCV (80.0-98.0) fL MCH (27.0-33.0) pg MCHC (31.0-35.0) g/dl RDW (11.0-16.0) % Plt Count (160-400) X10*3/uL MPV (9.4-12.3) fL Immature Gran % (Auto) (0.0-0.4) % Neut % (Auto) (45-73) % Lymph % (Auto) (20-40) % [place] % (Auto) (2-11) % Eos % (Auto) (0-4) % Baso % (Auto) (0-2) % Lymph # (Auto) (1.2-4.9) X10*3/uL [place] # (Auto) (0.1-1.2) X10*3/uL Eos # (Auto) (0.0-0.4) X10*3/uL Baso # (Auto) (0.0-0.2) X10*3/uL Abs Immat Gran (auto) (0.00-0.03) X10*3/uL Absolute Neuts (auto) (2.0-8.3) x10*3/uL Absolute Nucleated RBC (0.0-0.012) X10*3/uL Nucleated RBC % (auto) (0.0-0.2) /100WBC PT (10.0-13.1) SEC INR (0.9-1.1) VBG pH 7.46 H (7.32-7.43) VBG pCO2 38 mmHg VBG pO2 55 mmHg VBG HCO3 27 H (22-26) mmol/L VBG O2 Saturation 86.0 % VBG Base Excess 4.2 mmol/L Sodium (135-145) mmol/L Potassium (3.3-5.1) mmol/L Chloride (96-108) mmol/L Carbon Dioxide (22-29) mmol/L Anion Gap (12-20) BUN (9-16) mg/dL Creatinine (0.5-1.4) mg/dL Estim Creat Clear Calc Estimated GFR POC Glucose (60-115) mg/dL Random Glucose (60-115) mg/dL Lactic Acid (0.5-2.0) mmol/L Lactic Acid F/U @ 2Hr (0.5-2.0) mmol/L Calcium (8.4-10.2) mg/dL Magnesium (1.6-2.6) mg/dL Total Bilirubin (0.0-1.0) mg/dL Direct Bilirubin (0.0-0.5) mg/dL AST (5-31) U/L ALT (0-31) U/L Alkaline Phosphatase (39-117) U/L Total Creatine Kinase (26-140) U/L Troponin I High Sens (<3.5-17.0) ng/L B-Natriuretic Peptide 213 H (<100) pg/mL Total Protein (6.5-8.0) g/dL Albumin (3.5-5.0) g/dL TSH 6.13 H (0.32-4.0) uIU/mL Free T4 0.99 (0.71-1.85) ng/dL Urine Color Urine Appearance Urine pH (5.0-9.0) Ur Specific [place] (1.005-1.025) Urine Protein (Neg-Trace) mg/dL Urine Glucose (UA) (Negative) mg/dL Urine Ketones (Negative) mg/dL Urine Blood (Negative) Urine Nitrite (Negative) Ur Leukocyte Esterase (Negative) Urine RBC (0-2) /HPF Urine WBC (0-5) /HPF Ur Squamous Epith Cells (0-2) /HPF Urine Bacteria (None Seen) Hyaline Casts (0-2) /LPF 07/27/22 07/27/22 07/27/22 Range/Units 20:14 22:20 22:55 WBC (4.8-10.8) X10*3/uL RBC (4.20-5.50) X10*6/uL Hgb (12.0-16.0) g/dl Hct (37.0-47.0) % MCV (80.0-98.0) fL MCH (27.0-33.0) pg MCHC (31.0-35.0) g/dl RDW (11.0-16.0) % Plt Count (160-400) X10*3/uL MPV (9.4-12.3) fL Immature Gran % (Auto) (0.0-0.4) % Neut % (Auto) (45-73) % Lymph % (Auto) (20-40) % [place] % (Auto) (2-11) % Eos % (Auto) (0-4) % Baso % (Auto) (0-2) % Lymph # (Auto) (1.2-4.9) X10*3/uL [place] # (Auto) (0.1-1.2) X10*3/uL Eos # (Auto) (0.0-0.4) X10*3/uL Baso # (Auto) (0.0-0.2) X10*3/uL Abs Immat Gran (auto) (0.00-0.03) X10*3/uL Absolute Neuts (auto) (2.0-8.3) x10*3/uL Absolute Nucleated RBC (0.0-0.012) X10*3/uL Nucleated RBC % (auto) (0.0-0.2) /100WBC PT (10.0-13.1) SEC INR (0.9-1.1) VBG pH (7.32-7.43) VBG pCO2 mmHg VBG pO2 mmHg VBG HCO3 (22-26) mmol/L VBG O2 Saturation % VBG Base Excess mmol/L Sodium (135-145) mmol/L Potassium (3.3-5.1) mmol/L Chloride (96-108) mmol/L Carbon Dioxide (22-29) mmol/L Anion Gap (12-20) BUN (9-16) mg/dL Creatinine (0.5-1.4) mg/dL Estim Creat Clear Calc Estimated GFR POC Glucose 306 H (60-115) mg/dL Random Glucose (60-115) mg/dL Lactic Acid (0.5-2.0) mmol/L Lactic Acid F/U @ 2Hr 4.2 H* (0.5-2.0) mmol/L Calcium (8.4-10.2) mg/dL Magnesium (1.6-2.6) mg/dL Total Bilirubin (0.0-1.0) mg/dL Direct Bilirubin (0.0-0.5) mg/dL AST (5-31) U/L ALT (0-31) U/L Alkaline Phosphatase (39-117) U/L Total Creatine Kinase (26-140) U/L Troponin I High Sens (<3.5-17.0) ng/L B-Natriuretic Peptide (<100) pg/mL Total Protein (6.5-8.0) g/dL Albumin (3.5-5.0) g/dL TSH (0.32-4.0) uIU/mL Free T4 (0.71-1.85) ng/dL Urine Color Yellow Urine Appearance Clear Urine pH 5.5 (5.0-9.0) Ur Specific [place] >= 1.030 H (1.005-1.025) Urine Protein 30 (1+) H (Neg-Trace) mg/dL Urine Glucose (UA) >=1000 H (Negative) mg/dL Urine Ketones 15 (Negative) mg/dL Urine Blood Small (1+) H (Negative) Urine Nitrite Negative (Negative) Ur Leukocyte Esterase Negative (Negative) Urine RBC 3-5 H (0-2) /HPF Urine WBC 6-10 (0-5) /HPF Ur Squamous Epith Cells 3-5 (0-2) /HPF Urine Bacteria None Seen (None Seen) Hyaline Casts 0-2 (0-2) /LPF 07/28/22 07/28/22 07/28/22 Range/Units 02:25 07:02 08:41 WBC (4.8-10.8) X10*3/uL RBC (4.20-5.50) X10*6/uL Hgb (12.0-16.0) g/dl Hct (37.0-47.0) % MCV (80.0-98.0) fL MCH (27.0-33.0) pg MCHC (31.0-35.0) g/dl RDW (11.0-16.0) % Plt Count (160-400) X10*3/uL MPV (9.4-12.3) fL Immature Gran % (Auto) (0.0-0.4) % Neut % (Auto) (45-73) % Lymph % (Auto) (20-40) % [place] % (Auto) (2-11) % Eos % (Auto) (0-4) % Baso % (Auto) (0-2) % Lymph # (Auto) (1.2-4.9) X10*3/uL [place] # (Auto) (0.1-1.2) X10*3/uL Eos # (Auto) (0.0-0.4) X10*3/uL Baso # (Auto) (0.0-0.2) X10*3/uL Abs Immat Gran (auto) (0.00-0.03) X10*3/uL Absolute Neuts (auto) (2.0-8.3) x10*3/uL Absolute Nucleated RBC (0.0-0.012) X10*3/uL Nucleated RBC % (auto) (0.0-0.2) /100WBC PT (10.0-13.1) SEC INR (0.9-1.1) VBG pH (7.32-7.43) VBG pCO2 mmHg VBG pO2 mmHg VBG HCO3 (22-26) mmol/L VBG O2 Saturation % VBG Base Excess mmol/L Sodium (135-145) mmol/L Potassium (3.3-5.1) mmol/L Chloride (96-108) mmol/L Carbon Dioxide (22-29) mmol/L Anion Gap (12-20) BUN (9-16) mg/dL Creatinine (0.5-1.4) mg/dL Estim Creat Clear Calc Estimated GFR POC Glucose 292 H 373 H* 328 H (60-115) mg/dL Random Glucose (60-115) mg/dL Lactic Acid (0.5-2.0) mmol/L Lactic Acid F/U @ 2Hr (0.5-2.0) mmol/L Calcium (8.4-10.2) mg/dL Magnesium (1.6-2.6) mg/dL Total Bilirubin (0.0-1.0) mg/dL Direct Bilirubin (0.0-0.5) mg/dL AST (5-31) U/L ALT (0-31) U/L Alkaline Phosphatase (39-117) U/L Total Creatine Kinase (26-140) U/L Troponin I High Sens (<3.5-17.0) ng/L B-Natriuretic Peptide (<100) pg/mL Total Protein (6.5-8.0) g/dL Albumin (3.5-5.0) g/dL TSH (0.32-4.0) uIU/mL Free T4 (0.71-1.85) ng/dL Urine Color Urine Appearance Urine pH (5.0-9.0) Ur Specific [place] (1.005-1.025) Urine Protein (Neg-Trace) mg/dL Urine Glucose (UA) (Negative) mg/dL Urine Ketones (Negative) mg/dL Urine Blood (Negative) Urine Nitrite (Negative) Ur Leukocyte Esterase (Negative) Urine RBC (0-2) /HPF Urine WBC (0-5) /HPF Ur Squamous Epith Cells (0-2) /HPF Urine Bacteria (None Seen) Hyaline Casts (0-2) /LPF <Antoine Kam MD - Last Filed: 07/28/22 11:38> Discharge Plan Discharge Patient Disposition: Still a Patient <Janae Kong MD - Last Filed: 07/28/22 01:56> Instructions: Heart Failure (ED), Diabetic Hyperglycemia (ED) <Janae Kong MD - Last Filed: 07/28/22 01:56> Additional Instructions: You declined to be admitted to the hospital, your aware that you may decompensate, which may lead to . Please follow-up with your primary care physician tomorrow. If you have any worsening or new symptoms, please return to the emergency room or call 911 <Janae Kong MD - Last Filed: 07/28/22 01:56> Prescriptions: No Action metoprolol tartrate 50 mg tablet 50 mg PO BID Qty: 60 0RF cefuroxime axetil 500 mg tablet 500 mg PO BID Qty: 10 0RF Rx Instructions: END DATE: 07/30/22 furosemide 20 mg tablet 20 mg PO DAILY Qty: 30 0RF (DME) blood-glucose meter [FreeStyle Lite Meter] Kit See Rx Instructions .Route Qty: 1 0RF Rx Instructions: As directed (DME) FreeStyle Test Strip See Rx Instructions .Route Qty: 100 0RF Rx Instructions: BID (DME) lancets [FreeStyle Lancets] 28 gauge misc See Rx Instructions .Route Qty: 100 0RF Rx Instructions: As directed Eliquis 5 mg tablet 5 mg PO BID metformin 850 mg Tablet 850 mg PO BIDWM Qty: 60 2RF glipizide 10 mg tablet 10 mg PO BID CeraVe Cream 1 appl topical NEEDED PRN (Reason: Dry Skin) enalapril maleate 20 mg tablet 20 mg PO DAILY levothyroxine 112 mcg tablet 112 mcg PO DAILY@0600 atorvastatin 20 mg tablet 20 mg PO BEDTIME multivitamin Tablet 1 tab PO DAILY (DME) blood sugar diagnostic Strip See Rx Instructions .ROUTE QID Qty: 10 Rx Instructions: As directed aspirin 81 mg tablet,delayed release (DR/EC) 81 mg PO DAILY <Janae Kong MD - Last Filed: 07/28/22 01:56>
[2022-07-27] MEDS: dilTIAZem HCL 50 MG/10 ML VIAL 10 MG IVPUSH ×2 (19:57→20:59)
[2022-07-27 20:00] VITALS: BP 132/81; PULSE 80; RESP 22; TEMP 36.6; O2SAT 93
[2022-07-27 20:01] LABS: MANUAL DIFF FLAG NO
[2022-07-27 20:03] LABS: Basophils Percent Auto 0.2 % (0-2); Eosinophils Percent Auto 0.2 % (0-4); Hematocrit 44.9 % (37.0-47.0); Hemoglobin 15.2 g/dl (12.0-16.0); Imm Gran Abs Auto 0.07 X10*3/uL (0.00-0.03); Imm Gran Pct Auto 0.5 % (0.0-0.4); Lymphocytes Absolute Auto 0.7 X10*3/uL (1.2-4.9); Lymphocytes Percent Auto 5.5 % (20-40); Mean Corpuscular HGB Conc 33.9 g/dl (31.0-35.0); Mean Corpuscular Hemoglobin 28.7 pg (27.0-33.0); Mean Corpuscular Volume 84.9 fL (80.0-98.0); Monocytes Absolute Auto 1.3 X10*3/uL (0.1-1.2); Monocytes Percent Auto 9.8 % (2-11); Neutrophils Absolute Auto 10.8 x10*3/uL (2.0-8.3); Neutrophils Percent Auto 83.8 % (45-73); Platelet Count 208 X10*3/uL (160-400); Red Blood Count 5.29 X10*6/uL (4.20-5.50); Red Cell Distribution Width 14.2 % (11.0-16.0); White Blood Count 12.8 X10*3/uL (4.8-10.8)
[2022-07-27 20:07] LABS: VBG Base Excess 4.2 mmol/L; VBG HCO3 27 mmol/L (22-26); VBG pCO2 38 mmHg; VBG pH 7.46 (7.32-7.43); VBG pO2 55 mmHg
[2022-07-27 20:08] LABS: Venous Blood Gas Refer to POC result
--- NOTE | 2022-07-27 20:13 | PC.NURSE ---
Pt. unclear on length of time she spent on the floor after sliding out of her makeshift bed . Pt. states at least 2 hours, but also states it was the middle of the night. Pt. asking to use the bathroom, pt. found to have already been incontinent of urine. Pt. changed and linens changed. While rolling pt, her 02 sats dropped to 87% while on 2 L of 02. Pt. sat back up and O2 sats improved to 99%. O2 removed per MD as pt. not on O2 at baseline. O2 sats went initially down to 97%. Pt. readjusted in bed and talking to staff, O2 dipped again to 87% at RA. Currently rates back up to 90-92% on room air. Will continue to monitor O2 saturations.
--- NOTE | 2022-07-27 20:22 | PC.NURSE ---
Officer Cristobal ([phone]) with [employer] came in to check on pt. They have been called to her house multiple times over the last several days with welfare checks. Pt's dtr has reported concerns for Mom who does live alone. Dtr. is Dori Whitten at [phone] On one occasion, the responding officer made pt. a sandwich as she reported that she hadn't eaten that day. Plan is for the elderly affairs officer to do a home check on friday along with the public health nurse d/t concerns of safety.
[2022-07-27 20:24] LABS: Alanine Aminotransferase 65 U/L (0-31); Albumin Level 3.3 g/dL (3.5-5.0); Alkaline Phosphatase 118 U/L (39-117); Anion Gap 16 (12-20); Aspartate Amino Transferase 44 U/L (5-31); Bilirubin Direct 0.2 mg/dL (0.0-0.5); Bilirubin Total 0.7 mg/dL (0.0-1.0); Blood Urea Nitrogen 26 mg/dL (9-16); Calcium 9.2 mg/dL (8.4-10.2); Carbon Dioxide 24 mmol/L (22-29); Chloride 102 mmol/L (96-108); Creatinine Clr Calc Pharmacy 41.5; Estimated Glomerular Filt Rate 56; Glucose Random 461 mg/dL (60-115); Lactic Acid 2.4 mmol/L (0.5-2.0); Magnesium 1.8 mg/dL (1.6-2.6); Potassium 4.1 mmol/L (3.3-5.1); Sodium 138 mmol/L (135-145); Total Protein 6.2 g/dL (6.5-8.0)
[2022-07-27 20:24] LABS: B Type Natriuretic Peptide 213 pg/mL (<100)
[2022-07-27 20:24] LABS: Appearance Urine Clear; Color Urine Yellow; Glucose Urine UA >=1000 mg/dL (Negative); Leukocyte Esterase Urine Negative (Negative); Nitrite Urine Negative (Negative); PH 5.5 (5.0-9.0); Specific Gravity - Urine >= 1.030 (1.005-1.025); UMIC TRIGGER UACC YES; Urine Blood Small (1+) (Negative); Urine Ketones 15 mg/dL (Negative); Urine Protein 30 (1+) mg/dL (Neg-Trace)
[2022-07-27 20:25] LABS: Troponin-I High Sensitivity 16.6 ng/L (<3.5-17.0)
[2022-07-27] MEDS: Insulin Regular, Human 100 UNIT/ML 3 ML VIAL 10 UNIT IVPUSH (20:33)
[2022-07-27 20:39] LABS: TSH reflex Free T4 6.13 uIU/mL (0.32-4.0)
[2022-07-27 20:43] LABS: Bacteria Urine None Seen (None Seen); Hyaline Casts Urine 0-2 /LPF (0-2); UACC Culture Trigger YES
[2022-07-27 20:47] LABS: Prothrombin Time 11.9 SEC (10.0-13.1)
[2022-07-27 20:48] VITALS: BP 128/71; PULSE 97; RESP 20; O2SAT 89
[2022-07-27 21:23] LABS: Free T4 (Free Thyroxine) 0.99 ng/dL (0.71-1.85)
[2022-07-27 21:55] LABS: Reflex Lactate? Lactic Acid Added
[2022-07-27 22:00] VITALS: BP 92/60; PULSE 79; RESP 22; TEMP 36.6; O2SAT 98
[2022-07-27 22:50] LABS: ~Lactic Acid-LAB USE ONLY 4.2 mmol/L (0.5-2.0)
[2022-07-27 22:59] LABS: Glucose, Whole Blood 306 mg/dL (60-115)
[2022-07-27 23:49] VITALS: BP 87/69; PULSE 130; RESP 24; TEMP 35.9; O2SAT 94
[2022-07-27] MEDS: Calcium Gluconate/NaCl,Iso-Osm 2 GM/100 ML PLAST..BAG IV (23:54)
[2022-07-28] VITALS (9 sets, daily range): BP systolic 110–164; BP diastolic 53–72; PULSE 51–140; RESP 18–28; TEMP 35.8–36.8; O2SAT 92–96; BMI 29.6
--- NOTE | 2022-07-28 01:02 | PM.IMHP ---
History of Present Illness Date of Service: 07/28/22 Chief Complaint: found on floor 77-year-old female with hypothyroidism, [id number] type 2 diabetes, hypertension, hyperlipidemia, paroxysmal atrial fibrillation anticoagulated with Eliquis, history of invasive ductal carcinoma of the breast, and history of uterine cancer. admitted twice this past week for afib with rvr, hypoglycemia, and twice left AMA after demonstrating capacity to make decisions. now presenting after being found on floor. patient states she fell asleep in her chair and slipped off and fell on floor and couldnt get up rigth away, reports being down 20 hours, though unclear, and eventually was able to call 911. in ED found to be in afib with rvr. Review of Systems Review of Systems: Yes all other systems are reviewed and are negative [facility] Medical History Asymptomatic bacteriuria Atrial fibrillation Chronic anticoagulation History of uterine cancer HLD (hyperlipidemia) HTN (hypertension) Hypothyroidism Invasive ductal carcinoma of left breast Type 2 diabetes mellitus Surgical History History of hysterectomy for cancer History of knee surgery History of lumpectomy of right breast (05/25/17) History of right breast biopsy Social History Household Members: None Housing: House Do you presently have visiting nurse or other home services: Yes Alcohol intake: never Patient Tobacco Use Status: Never used Tobacco Advance Directives: No Advance Directives Information Provided: No service: No Current occupational status: retired Meds Allergies Allergy/AdvReac Type Severity Reaction Status Date / Time No Known Allergies Allergy Unverified 12/23/19 15:40 [No Known Allergies*] Active Medications: Current Medications Digoxin (Digoxin 0.5 Mg/2 Ml Ampul) 0.25 mg IVPUSH Q6H ANTONIO Stop: 07/28/22 07:01 Calcium Gluconate (Calcium Gluconate) 2 gm in 100 mls @ 50 mls/hr IV ONCE ONE Stop: 07/28/22 01:24 Last Admin: 07/27/22 23:54 Dose: 50 mls/hr Diltiazem HCl 125 mg/ Sodium (Chloride) 125 mls @ 0 mls/hr IVCONT .Q0M ANTONIO; Protocol Home Medications Medication Instructions Recorded Confirmed Last Taken Type aspirin 81 mg tablet,delayed 81 mg PO DAILY 05/05/20 07/22/22 Unknown History release atorvastatin 20 mg tablet 20 mg PO BEDTIME 05/05/20 07/22/22 Unknown History blood sugar diagnostic #10 ea 05/05/20 05/05/20 Unknown History enalapril maleate 20 mg tablet 20 mg PO QAM 05/05/20 07/22/22 Unknown History levothyroxine 112 mcg tablet 112 mcg PO DAILY 05/05/20 07/22/22 Unknown History multivitamin 1 tab PO DAILY 05/05/20 07/22/22 Unknown History apixaban 5 mg tablet (Eliquis) 5 mg PO BID 07/21/22 07/22/22 Unknown History ceramides 1,3,6-II (CeraVe topical 1 appl topical NEEDED 07/22/22 07/22/22 Unknown History cream) Physical Exam Vital Signs and Narrative: Vital Signs: Last Vital Signs Temp 96.6 F L 07/27/22 23:49 Pulse 130 H 07/27/22 23:49 Resp 24 H 07/27/22 23:49 BP 87/69 L 07/27/22 23:49 Pulse Ox 94 07/27/22 23:49 O2 Del Method Room Air 07/27/22 23:49 O2 Flow Rate 2 07/27/22 22:00 BMI result Body Mass Index 29.2 General: AO X 3, ill appearing Resp: Crackles bilateral, no accessory muscles used CVS: S1,S2,rapid irregular GI: soft, non tender, non distended Results Labs 07/27/22 19:53 07/27/22 19:53 Labs: Laboratory Results - last 24 hr 07/27/22 07/27/22 07/27/22 19:27 19:53 19:53 MCV 84.9 MCH 28.7 MCHC 33.9 RDW 14.2 Plt Count 208 D MPV 10.0 Immature Gran % (Auto) 0.5 H Neut % (Auto) 83.8 H Lymph % (Auto) 5.5 L [place] % (Auto) 9.8 Eos % (Auto) 0.2 Baso % (Auto) 0.2 Lymph # (Auto) 0.7 L [place] # (Auto) 1.3 H Eos # (Auto) 0.0 Baso # (Auto) 0.0 Abs Immat Gran (auto) 0.07 H Absolute Neuts (auto) 10.8 H Absolute Nucleated RBC 0.000 Nucleated RBC % (auto) 0.0 PT INR VBG pH VBG pCO2 VBG pO2 VBG HCO3 VBG O2 Saturation VBG Base Excess Anion Gap 16 Estim Creat Clear Calc 41.5 Estimated GFR 56 POC Glucose 409 H* Random Glucose 461 H* Lactic Acid Lactic Acid F/U @ 2Hr Calcium 9.2 D Magnesium 1.8 Total Bilirubin 0.7 Direct Bilirubin 0.2 AST 44 H ALT 65 H Alkaline Phosphatase 118 H Total Creatine Kinase 180 H Troponin I High Sens B-Natriuretic Peptide Total Protein 6.2 L Albumin 3.3 L TSH Free T4 Urine Color Urine Appearance Urine pH Ur Specific [place] Urine Protein Urine Glucose (UA) Urine Ketones Urine Blood Urine Nitrite Ur Leukocyte Esterase Urine RBC Urine WBC Ur Squamous Epith Cells Urine Bacteria Hyaline Casts 07/27/22 07/27/22 07/27/22 19:53 19:53 19:54 MCV MCH MCHC RDW Plt Count MPV Immature Gran % (Auto) Neut % (Auto) Lymph % (Auto) [place] % (Auto) Eos % (Auto) Baso % (Auto) Lymph # (Auto) [place] # (Auto) Eos # (Auto) Baso # (Auto) Abs Immat Gran (auto) Absolute Neuts (auto) Absolute Nucleated RBC Nucleated RBC % (auto) PT 11.9 INR 1.0 VBG pH VBG pCO2 VBG pO2 VBG HCO3 VBG O2 Saturation VBG Base Excess Anion Gap Estim Creat Clear Calc Estimated GFR POC Glucose Random Glucose Lactic Acid 2.4 H* Lactic Acid F/U @ 2Hr Calcium Magnesium Total Bilirubin Direct Bilirubin AST ALT Alkaline Phosphatase Total Creatine Kinase Troponin I High Sens 16.6 B-Natriuretic Peptide Total Protein Albumin TSH Free T4 Urine Color Urine Appearance Urine pH Ur Specific [place] Urine Protein Urine Glucose (UA) Urine Ketones Urine Blood Urine Nitrite Ur Leukocyte Esterase Urine RBC Urine WBC Ur Squamous Epith Cells Urine Bacteria Hyaline Casts 07/27/22 07/27/22 07/27/22 19:54 19:54 20:00 MCV MCH MCHC RDW Plt Count MPV Immature Gran % (Auto) Neut % (Auto) Lymph % (Auto) [place] % (Auto) Eos % (Auto) Baso % (Auto) Lymph # (Auto) [place] # (Auto) Eos # (Auto) Baso # (Auto) Abs Immat Gran (auto) Absolute Neuts (auto) Absolute Nucleated RBC Nucleated RBC % (auto) PT INR VBG pH 7.46 H VBG pCO2 38 VBG pO2 55 VBG HCO3 27 H VBG O2 Saturation 86.0 VBG Base Excess 4.2 Anion Gap Estim Creat Clear Calc Estimated GFR POC Glucose Random Glucose Lactic Acid Lactic Acid F/U @ 2Hr Calcium Magnesium Total Bilirubin Direct Bilirubin AST ALT Alkaline Phosphatase Total Creatine Kinase Troponin I High Sens B-Natriuretic Peptide 213 H Total Protein Albumin TSH 6.13 H Free T4 0.99 Urine Color Urine Appearance Urine pH Ur Specific [place] Urine Protein Urine Glucose (UA) Urine Ketones Urine Blood Urine Nitrite Ur Leukocyte Esterase Urine RBC Urine WBC Ur Squamous Epith Cells Urine Bacteria Hyaline Casts 07/27/22 07/27/22 07/27/22 20:14 22:20 22:55 MCV MCH MCHC RDW Plt Count MPV Immature Gran % (Auto) Neut % (Auto) Lymph % (Auto) [place] % (Auto) Eos % (Auto) Baso % (Auto) Lymph # (Auto) [place] # (Auto) Eos # (Auto) Baso # (Auto) Abs Immat Gran (auto) Absolute Neuts (auto) Absolute Nucleated RBC Nucleated RBC % (auto) PT INR VBG pH VBG pCO2 VBG pO2 VBG HCO3 VBG O2 Saturation VBG Base Excess Anion Gap Estim Creat Clear Calc Estimated GFR POC Glucose 306 H Random Glucose Lactic Acid Lactic Acid F/U @ 2Hr 4.2 H* Calcium Magnesium Total Bilirubin Direct Bilirubin AST ALT Alkaline Phosphatase Total Creatine Kinase Troponin I High Sens B-Natriuretic Peptide Total Protein Albumin TSH Free T4 Urine Color Yellow Urine Appearance Clear Urine pH 5.5 Ur Specific [place] >= 1.030 H Urine Protein 30 (1+) H Urine Glucose (UA) >=1000 H Urine Ketones 15 Urine Blood Small (1+) H Urine Nitrite Negative Ur Leukocyte Esterase Negative Urine RBC 3-5 H Urine WBC 6-10 Ur Squamous Epith Cells 3-5 Urine Bacteria None Seen Hyaline Casts 0-2 Imaging Radiologist's Impressions: Impressions Chest X-Ray 07/27/22 20:30 IMPRESSION: CHF Assessment and Plan (1) Type 2 diabetes mellitus: Status: Acute Plan 77-year-old female with hypothyroidism, [id number] type 2 diabetes, hypertension, hyperlipidemia, paroxysmal atrial fibrillation anticoagulated with Eliquis, history of invasive ductal carcinoma of the breast, and history of uterine cancer presentd with mechanical fall, afib with rvr paroxysmal afib with rvr cardizem, dig, eliquis, metoprolol cardio eval echo chf unspecified echo holding diuretics for now with relative hypotension DM with hyperglycemia insulin HTN now hypotensive, monitor off nestor hypothryoid synthroid hld statin hisotry of breast and uterine cancer outpatinet oncology follow up dvt prophylaxis - on eliquis full code patient with afib with rvr, hypotensive, at risk for further decompensation due to advanced age, frailty, dm, therefore, expected to require atleast 2 midnights inpatient. Time Spent With Patient Time: Total time managing care of this patient today ____ minutes. Quality Stroke Does the patient have a stroke diagnosis?: No VTE Prior VTE?: No VTE Risk Level:: Medical - moderate - high VTE Device Contraindication: Treatment Not Indicated VTE Drug Contraindication: N/A - Med Ordered
--- NOTE | 2022-07-28 02:14 | PC.NURSE ---
Pt's daughter called and feels that the pt. is unsafe. Informed daughter that per our psychiatry notes, pt. had been deemed to have capacity, therefore, we would be unable to hold pt. Pt. was alert and oriented, answering questions appropriately. Pt. declined to be admitted. Pt. encouraged to stay for treatment and has agreed to see case management in the morning. Pt. heart rate has remained tachycardic. Diltiazem drip ordered, however, MD okayed to delay and then cancel as pt. not being admitted and heart remaining around 100-115. Prior to admission, hospitalist placed order for digoxin. Per ED MD , okay to administer this dose. Pt. currently sleeping, respirations even and unlabored. No distress noted.
[2022-07-28 02:29] LABS: Glucose, Whole Blood 292 mg/dL (60-115)
[2022-07-28] MEDS: Digoxin 0.5 MG/2 ML AMPUL 0.25 MG IVPUSH ×2 (02:33→07:24)
[2022-07-28] MEDS: dilTIAZem HCL 30 MG TABLET 15 MG PO (05:15)
[2022-07-28] MEDS: dilTIAZem HCL 50 MG/10 ML VIAL 10 MG IVPUSH (05:17)
--- NOTE | 2022-07-28 05:40 | PC.NURSE ---
Pt. refused admission to hospital, however, some admission orders still came through. 6am blood draws (CBC and BMP) not done as pt. not admitted.
--- NOTE | 2022-07-28 05:54 | PC.NURSE ---
Pt. resting in bed. Pt. provided with ice water per request. Pt. believes that her high heart rate is d/t being in the hospital and will return to normal when she gets home.
[2022-07-28 07:06] LABS: Glucose, Whole Blood 373 mg/dL (60-115)
--- NOTE | 2022-07-28 07:07 | MHC.EDTECH ---
This tech attempted to draw labs and patient refused. She stated she wants to go home.
[2022-07-28] MEDS: Insulin Lispro 100 UNIT/ML 3 ML VIAL SUBCUT ×5 (07:22→20:39)
[2022-07-28 08:45] LABS: Glucose, Whole Blood 328 mg/dL (60-115)
--- NOTE | 2022-07-28 09:14 | PC.NURSE ---
Maricel from notified and now aware of patient situation.
--- NOTE | 2022-07-28 09:31 | MHC.EDTECH ---
placed new purewick and washed patient, and changed pads.
--- NOTE | 2022-07-28 10:09 | MHC.CM.ED ---
Addendum entered by Marilee French 07/28/22 10:47: ED MD to order another capacity eval as he feels pt is not able to make decisions re: self care - in addition, ED MD states Section 12 remains valid and pt will be held in ED pending re-eval. BLS cancelled. ED CM to await determination for assistance w/d/c planning needs. Original Note: Received consult for assistance with d/c planning: pt brought to ED after being found on floor by home insurance agent. Review of past visit and concerns brought to CM by ED RN and MD: pt w/hx of noncompliance re: medical care: ? unsafe home d/t clutter, lack of insight into care needs: Pt deemed to have capacity to make decisions per psych eval on 07/21/22. Pt left AMA. `Pt has an open case with SS and is reportedly active w/[employer] [facility] and [facility]. Met w/pt who asked CM when can I go home? Explained that she was still having an acute medical issue - Afib and is refusing admission for treatment. Yes I am. I want to go home. The reason my heart rate is fast is because you people are making me livid. When I'm home, I have no problems. Pt states she has [facility] services by [facility] and [id number] for housekeeping. She states compliance with medications and downplays concerns brought to CM by EMS and ED care team. I am so tired of other people thinking they know best. Let me live my life, ok? Pt is supposed to have a home visit on 07/29 for safety concerns through [facility] per ED notes. ED MD has ordered a PT eval but pt is refusing to stay. Pt has medical criteria for admission but is refusing- requesting to return to home. Message left by phone and inquiry made by [facility] to verify [employer] services. No response as of this note. Discussed pt w/ED care team - she can make her own decisions despite potential for harm - she has oversight by [employer], [facility] and S and will be visited on 07/29 by home inspectors. Pt is requesting transportation via BLS d/t gait instability: has walker at home. [facility] arranged for next earliest transport. ED care team updated on plan.
--- NOTE | 2022-07-28 10:11 | PC.NURSE ---
ED attending to bedside to explain risks of AMA, admission refusal, and reality of condition. Risk includes Increased Morbidity and Mortality.
--- NOTE | 2022-07-28 10:13 | PC.NURSE ---
Per ED attending: Pt lacks insight for disease process, living condition, and reality of current medical instability. Plan at this time is to obtain another psych consult to confirm capacity status.
--- NOTE | 2022-07-28 10:24 | PC.NURSE ---
On 07/21- pt was evaluated by Dr. San and found to have capacity at that time. Pt was placed on S12 by Dr. Kong on 07/28/22 at 0025 due to lack of insight regarding medical condition/inability to take of self. ED attending contacting daughter to obtain additional history
--- NOTE | 2022-07-28 11:18 | PC.NURSE ---
pt medication delayed due to pharmacy med rec verification - per pharmacy medications need corrections.
--- NOTE | 2022-07-28 11:25 | PHA.MEDREC ---
Addendum entered by Yazmin Bourgeois RPh 07/28/22 11:35: [facility] reviewed med rec Addendum entered by Jarad Siu 07/28/22 11:30: Correction: Glipizide 10mg daily. Original Note: Pharmacy Consult ? Medication Reconciliation Pharmacy has completed the medication reconciliation. Spoke to patient to confirm meds. Patient had a discharge packet from 07/25/22 which was used to aid in med rec. Glipizide 10mg bid.
[2022-07-28 11:40] LABS: Glucose, Whole Blood 288 mg/dL (60-115)
[2022-07-28] MEDS: Apixaban 5 MG TABLET PO ×2 (12:06→20:39)
[2022-07-28] MEDS: Aspirin Enteric Coated 81 MG TABLET.DR PO (12:06)
[2022-07-28] MEDS: dilTIAZem HCL 125 MG in 0.9 % Sodium Chloride 100 ML 10 MG IVCONT (12:20)
--- NOTE | 2022-07-28 12:21 | P.CNPS_ITS ---
History of Present Illness Date of Service: t Chief Complaint: FOUND ON FLOOR,UNK HOW LONG,FEELS SOB PER EMS Reason for Consult: Assessment of capacity to sign AMA Requesting physician: Antoine Kam Discussed with referring provider: Yes Sources of Information: patient interviewed, chart reviewed and crisis/core team assessment reviewed HPI Narrative: The patient is a 77-year-old female, with several medical comorbidities such as CHF, hyperglycemia, atrial fibirllation with RVR, past history of invasive ductal carcinoma of left breast referred from the emergency room for assessment of capacity to sign AMA. The patient had been in the hospital on the emergency room last week and she was assessed for capacity since she wanted to sign AMA again. At that moment she had capacity to sign herself out. According to the patient, he last night she slept from her bed and she was brought into the emergency room. The patient adamantly denies active suicidal ideation, mood symptoms and she wants to go back home. She stated she has a lot of services at home and she is going to be safe, even though that she lives alone. I discussed the case with the primary team apparently Dr. Kaufman contacted his daughter and the daughter reported the patient lives by herself that she does not have ancillary services besides VNA daily for half an hour once a day and she had been having cognitive problems. Most likely she suffers from dementia at this point. Also, Dr. Kaufman reported that EMS knows the patient since she was brought to the ED several times for different medical problmes. On interview, it was clear that the patient does not have full insight into her medical problems and she is unable to assess the gravity of going home without services. I explained about the Atrial fibrilation and the need of medical workout but she was unable to process this information. Past Psychiatric History: No known history of inpatient or outpatient psychiatric treatment. Medical Evaluation Reviewed: Yes [facility] Medical History Asymptomatic bacteriuria Atrial fibrillation Chronic anticoagulation History of uterine cancer HLD (hyperlipidemia) HTN (hypertension) Hypothyroidism Invasive ductal carcinoma of left breast Type 2 diabetes mellitus Surgical History History of hysterectomy for cancer History of knee surgery History of lumpectomy of right breast (05/25/17) History of right breast biopsy Family History: Denies Social History: Lives alone, she has VNA Substance History: Denies Trauma History: None known Diagnostics Vital Signs (24Hr): Vital Signs - 24 hr 07/27/22 19:28 07/27/22 20:00 07/27/22 20:48 Temperature 96.3 F L 97.9 F Pulse Rate 85 80 97 Respiratory Rate 20 22 H 20 Blood Pressure 130/89 132/81 128/71 Pulse Oximetry 97 93 89 L Oxygen Delivery Method Room Air Room Air Room Air Oxygen Flow Rate 07/27/22 22:00 07/27/22 23:49 07/28/22 02:10 Temperature 97.9 F 96.6 F L Pulse Rate 79 130 H 105 H Respiratory Rate 22 H 24 H 18 Blood Pressure 92/60 87/69 L 110/62 Pulse Oximetry 98 94 92 Oxygen Delivery Method Nasal Cannula Room Air Room Air Oxygen Flow Rate 2 07/28/22 04:13 07/28/22 06:38 07/28/22 08:00 Temperature 96.4 F L 98.2 F Pulse Rate 97 99 130 H Respiratory Rate 20 28 H 18 Blood Pressure 113/53 L 138/64 Pulse Oximetry 95 93 Oxygen Delivery Method Room Air Room Air Oxygen Flow Rate 07/28/22 10:00 Temperature Pulse Rate 124 H Respiratory Rate 18 Blood Pressure Pulse Oximetry 94 Oxygen Delivery Method Room Air Oxygen Flow Rate BMI result Body Mass Index 29.2 Labs 07/27/22 19:53 07/27/22 19:53 Labs: Laboratory Results - last 48 hr 07/27/22 07/27/22 07/27/22 19:27 19:53 19:53 WBC 12.8 H RBC 5.29 Hgb 15.2 Hct 44.9 MCV 84.9 MCH 28.7 MCHC 33.9 RDW 14.2 Plt Count 208 D MPV 10.0 Immature Gran % (Auto) 0.5 H Neut % (Auto) 83.8 H Lymph % (Auto) 5.5 L [place] % (Auto) 9.8 Eos % (Auto) 0.2 Baso % (Auto) 0.2 Lymph # (Auto) 0.7 L [place] # (Auto) 1.3 H Eos # (Auto) 0.0 Baso # (Auto) 0.0 Abs Immat Gran (auto) 0.07 H Absolute Neuts (auto) 10.8 H Absolute Nucleated RBC 0.000 Nucleated RBC % (auto) 0.0 PT INR VBG pH VBG pCO2 VBG pO2 VBG HCO3 VBG O2 Saturation VBG Base Excess Sodium 138 Potassium 4.1 Chloride 102 Carbon Dioxide 24 Anion Gap 16 BUN 26 H Creatinine 0.96 Estim Creat Clear Calc 41.5 Estimated GFR 56 POC Glucose 409 H* Random Glucose 461 H* Lactic Acid Lactic Acid F/U @ 2Hr Calcium 9.2 D Magnesium 1.8 Total Bilirubin 0.7 Direct Bilirubin 0.2 AST 44 H ALT 65 H Alkaline Phosphatase 118 H Total Creatine Kinase 180 H Troponin I High Sens B-Natriuretic Peptide Total Protein 6.2 L Albumin 3.3 L TSH Free T4 Urine Color Urine Appearance Urine pH Ur Specific [place] Urine Protein Urine Glucose (UA) Urine Ketones Urine Blood Urine Nitrite Ur Leukocyte Esterase Urine RBC Urine WBC Ur Squamous Epith Cells Urine Bacteria Hyaline Casts 07/27/22 07/27/22 07/27/22 19:53 19:53 19:54 WBC RBC Hgb Hct MCV MCH MCHC RDW Plt Count MPV Immature Gran % (Auto) Neut % (Auto) Lymph % (Auto) [place] % (Auto) Eos % (Auto) Baso % (Auto) Lymph # (Auto) [place] # (Auto) Eos # (Auto) Baso # (Auto) Abs Immat Gran (auto) Absolute Neuts (auto) Absolute Nucleated RBC Nucleated RBC % (auto) PT 11.9 INR 1.0 VBG pH VBG pCO2 VBG pO2 VBG HCO3 VBG O2 Saturation VBG Base Excess Sodium Potassium Chloride Carbon Dioxide Anion Gap BUN Creatinine Estim Creat Clear Calc Estimated GFR POC Glucose Random Glucose Lactic Acid 2.4 H* Lactic Acid F/U @ 2Hr Calcium Magnesium Total Bilirubin Direct Bilirubin AST ALT Alkaline Phosphatase Total Creatine Kinase Troponin I High Sens 16.6 B-Natriuretic Peptide Total Protein Albumin TSH Free T4 Urine Color Urine Appearance Urine pH Ur Specific [place] Urine Protein Urine Glucose (UA) Urine Ketones Urine Blood Urine Nitrite Ur Leukocyte Esterase Urine RBC Urine WBC Ur Squamous Epith Cells Urine Bacteria Hyaline Casts 07/27/22 07/27/22 07/27/22 19:54 19:54 20:00 WBC RBC Hgb Hct MCV MCH MCHC RDW Plt Count MPV Immature Gran % (Auto) Neut % (Auto) Lymph % (Auto) [place] % (Auto) Eos % (Auto) Baso % (Auto) Lymph # (Auto) [place] # (Auto) Eos # (Auto) Baso # (Auto) Abs Immat Gran (auto) Absolute Neuts (auto) Absolute Nucleated RBC Nucleated RBC % (auto) PT INR VBG pH 7.46 H VBG pCO2 38 VBG pO2 55 VBG HCO3 27 H VBG O2 Saturation 86.0 VBG Base Excess 4.2 Sodium Potassium Chloride Carbon Dioxide Anion Gap BUN Creatinine Estim Creat Clear Calc Estimated GFR POC Glucose Random Glucose Lactic Acid Lactic Acid F/U @ 2Hr Calcium Magnesium Total Bilirubin Direct Bilirubin AST ALT Alkaline Phosphatase Total Creatine Kinase Troponin I High Sens B-Natriuretic Peptide 213 H Total Protein Albumin TSH 6.13 H Free T4 0.99 Urine Color Urine Appearance Urine pH Ur Specific [place] Urine Protein Urine Glucose (UA) Urine Ketones Urine Blood Urine Nitrite Ur Leukocyte Esterase Urine RBC Urine WBC Ur Squamous Epith Cells Urine Bacteria Hyaline Casts 07/27/22 07/27/22 07/27/22 20:14 22:20 22:55 WBC RBC Hgb Hct MCV MCH MCHC RDW Plt Count MPV Immature Gran % (Auto) Neut % (Auto) Lymph % (Auto) [place] % (Auto) Eos % (Auto) Baso % (Auto) Lymph # (Auto) [place] # (Auto) Eos # (Auto) Baso # (Auto) Abs Immat Gran (auto) Absolute Neuts (auto) Absolute Nucleated RBC Nucleated RBC % (auto) PT INR VBG pH VBG pCO2 VBG pO2 VBG HCO3 VBG O2 Saturation VBG Base Excess Sodium Potassium Chloride Carbon Dioxide Anion Gap BUN Creatinine Estim Creat Clear Calc Estimated GFR POC Glucose 306 H Random Glucose Lactic Acid Lactic Acid F/U @ 2Hr 4.2 H* Calcium Magnesium Total Bilirubin Direct Bilirubin AST ALT Alkaline Phosphatase Total Creatine Kinase Troponin I High Sens B-Natriuretic Peptide Total Protein Albumin TSH Free T4 Urine Color Yellow Urine Appearance Clear Urine pH 5.5 Ur Specific [place] >= 1.030 H Urine Protein 30 (1+) H Urine Glucose (UA) >=1000 H Urine Ketones 15 Urine Blood Small (1+) H Urine Nitrite Negative Ur Leukocyte Esterase Negative Urine RBC 3-5 H Urine WBC 6-10 Ur Squamous Epith Cells 3-5 Urine Bacteria None Seen Hyaline Casts 0-2 07/28/22 07/28/22 07/28/22 02:25 07:02 08:41 WBC RBC Hgb Hct MCV MCH MCHC RDW Plt Count MPV Immature Gran % (Auto) Neut % (Auto) Lymph % (Auto) [place] % (Auto) Eos % (Auto) Baso % (Auto) Lymph # (Auto) [place] # (Auto) Eos # (Auto) Baso # (Auto) Abs Immat Gran (auto) Absolute Neuts (auto) Absolute Nucleated RBC Nucleated RBC % (auto) PT INR VBG pH VBG pCO2 VBG pO2 VBG HCO3 VBG O2 Saturation VBG Base Excess Sodium Potassium Chloride Carbon Dioxide Anion Gap BUN Creatinine Estim Creat Clear Calc Estimated GFR POC Glucose 292 H 373 H* 328 H Random Glucose Lactic Acid Lactic Acid F/U @ 2Hr Calcium Magnesium Total Bilirubin Direct Bilirubin AST ALT Alkaline Phosphatase Total Creatine Kinase Troponin I High Sens B-Natriuretic Peptide Total Protein Albumin TSH Free T4 Urine Color Urine Appearance Urine pH Ur Specific [place] Urine Protein Urine Glucose (UA) Urine Ketones Urine Blood Urine Nitrite Ur Leukocyte Esterase Urine RBC Urine WBC Ur Squamous Epith Cells Urine Bacteria Hyaline Casts 07/28/22 11:35 WBC RBC Hgb Hct MCV MCH MCHC RDW Plt Count MPV Immature Gran % (Auto) Neut % (Auto) Lymph % (Auto) [place] % (Auto) Eos % (Auto) Baso % (Auto) Lymph # (Auto) [place] # (Auto) Eos # (Auto) Baso # (Auto) Abs Immat Gran (auto) Absolute Neuts (auto) Absolute Nucleated RBC Nucleated RBC % (auto) PT INR VBG pH VBG pCO2 VBG pO2 VBG HCO3 VBG O2 Saturation VBG Base Excess Sodium Potassium Chloride Carbon Dioxide Anion Gap BUN Creatinine Estim Creat Clear Calc Estimated GFR POC Glucose 288 H Random Glucose Lactic Acid Lactic Acid F/U @ 2Hr Calcium Magnesium Total Bilirubin Direct Bilirubin AST ALT Alkaline Phosphatase Total Creatine Kinase Troponin I High Sens B-Natriuretic Peptide Total Protein Albumin TSH Free T4 Urine Color Urine Appearance Urine pH Ur Specific [place] Urine Protein Urine Glucose (UA) Urine Ketones Urine Blood Urine Nitrite Ur Leukocyte Esterase Urine RBC Urine WBC Ur Squamous Epith Cells Urine Bacteria Hyaline Casts Imaging Radiology Impressions: ITS Impressions Chest X-Ray 07/27/22 20:30 IMPRESSION: CHF Mental Status Exam Mental Status Exam Patient Appearance: Appropriate (On hospital gowns, with IV line) Patient Orientation: Person and Situation Level of Consciousness: Awake and Disoriented Patient Behavior: Guarded, Passive and Suspicious Mood Description: Calm Affect Description: Withdrawn Patient Cognition Impaired: Yes Ability to Follow Directions: Fair Speech Pattern: Monotone, Soft-Spoken and Delayed Memory Description: Immediate Impaired Hallucinations: None Delusions: Not Present Thought Process: Distracted, Slowed Thinking and Confusion Thought Content: positive for Preoccupation and positive for Evasive Judgement: Poor Judgement and Insight: Poor insight Medications Medications Current Medications Apixaban (Apixaban 5 Mg Tablet) 5 mg PO BID [facility] Last Admin: 07/28/22 12:06 Dose: 5 mg Aspirin (Aspirin Enteric Coated 81 Mg Tablet.Dr) 81 mg PO DAILY [facility] Last Admin: 07/28/22 12:06 Dose: 81 mg Atorvastatin Calcium (Atorvastatin Calcium 20 Mg Tablet) 20 mg PO BEDTIME [facility] Cefuroxime Axetil (Cefuroxime Axetil 500 Mg Tablet) 500 mg PO BID [facility] Enalapril Maleate (Enalapril Maleate 5 Mg Tablet) 20 mg PO DAILY [facility]; Protocol Furosemide (Furosemide 20 Mg Tablet) 20 mg PO DAILY [facility]; Protocol Glipizide (Glipizide 10 Mg Tablet) 10 mg PO DAILY [facility] Glipizide (Glipizide 10 Mg Tablet) 10 mg PO DAILY [facility] Glucose (Glucose Gel 15 Gm Gel..Gram.) 15 gm PO Q15M PRN; Protocol PRN Reason: per Hypoglycemia Standing Ord. Diltiazem HCl 125 mg/ Sodium (Chloride) 125 mls @ 0 mls/hr IVCONT .Q0M [facility]; Protocol Last Admin: 07/28/22 12:20 Dose: 10 mg/hr, 10 mls/hr Dextrose (D10) 250 mls @ 750 mls/hr IV Q15M PRN; Protocol PRN Reason: per Hypoglycemia Standing Ord. Insulin Glargine (Insulin Glargine,Hum.Rec.Anlog 100 Unit/Ml 10 Ml Vial) 15 unit SUBCUT BEDTIME [facility] Insulin Human Lispro (Insulin Lispro 100 Unit/Ml 3 Ml Vial) 0 unit SUBCUT QIDACHS [facility]; Protocol Last Admin: 07/28/22 12:06 Dose: 6 unit Levothyroxine Sodium (Levothyroxine Sodium 112 Mcg Tablet) 112 mcg PO DAILY@0600 [facility] Metformin HCl (Metformin Hcl 850 Mg Tablet) 850 mg PO BIDWM [facility] Metoprolol Tartrate (Metoprolol Tartrate 50 Mg Tablet) 50 mg PO BID [facility]; Protocol Multivitamins/Vitamin C (Multivitamin Tablet) 1 tab PO DAILY [facility] Allergies Allergies Allergy/AdvReac Type Severity Reaction Status Date / Time No Known Allergies Allergy Unverified 12/23/19 15:40 [No Known Allergies*] Assessment & Plan Assessment & Plan (1) CHF (congestive heart failure): Status: Acute Code(s): I50.9 - Heart failure, unspecified (2) Hyperglycemia: Status: Acute Code(s): R73.9 - Hyperglycemia, unspecified (3) Atrial fibrillation with RVR: Status: Acute Code(s): I48.91 - Unspecified atrial fibrillation (4) Polycythemia: Status: Acute Code(s): D75.1 - Secondary polycythemia (5) Acute metabolic encephalopathy: Status: Acute Code(s): G93.41 - Metabolic encephalopathy (6) UTI (urinary tract infection): Status: Acute Code(s): N39.0 - Urinary tract infection, site not specified (7) Hyperglycemia: Status: Acute Code(s): R73.9 - Hyperglycemia, unspecified (8) Invasive ductal carcinoma of left breast: Status: Acute Code(s): C50.912 - Malignant neoplasm of unspecified site of left female breast (9) Neurodegenerative cognitive impairment: Status: Acute Code(s): G31.9 - Degenerative disease of nervous system, unspecified Plan The patient is an elderly female with several medical comorbidities such as CHF, atrial fibrillation, hyperglycemia, breast cancer and most likely with dementia, brought to the emergency room after she slipped on her home. The patient wants to sign AMA and a consult to assess capacity was placed. I reviewed her chart, her case was discussed with the primary team and collateral information was gathered. Even though, that the patient is awake, alert in place and time, she is in reasonable at and unable to process why she needs to be in the hospital. Her insight into her condition is poor and the need of medical workout was disregarded. At this moment, the patient does not have capacity to sign AMA, the consequence of discharge could threatened her life, the possiblity that she could have severe consequences is very high but the patient is unable to understand this fact. Reassessment for capacity should be reordered in 24 hours, when her medical condition improves. Total time managing care of this patient today __45__ minutes. Patient educated on: diagnosis and therapeutic strategies Informed Consent: further education needed
--- NOTE | 2022-07-28 12:30 | PC.NURSE ---
assumed care of pt at 1100. pt alert and oriented to person/place/month - believes its 2003. HR remains afib/RVR with rate between 105-158, other vss. pt medicated per JUN, cardizem started at 10mg/hr per protocol. hospitalist at bedside attempting to discuss pt admission, pt agitated reporting that she is going home now striking out at hospitalist. repositioned in bed, purwick in place.
--- NOTE | 2022-07-28 12:56 | PM.EVENT ---
Event Note Date of Service: 07/28/22 Event Note: I evaluated the patient this morning in ED as she was seen by psychiatry team who reports that she lacks capacity to sign AMA. HCP her daughter Dori will be invoked. To reassess capacity in 24 hours Delerium seems to be contributing, seroquel prn Start home meds of Metoprolol Continue Cardizem drip, wean as tolerated Start IV Lasix Keep on Tele Cardio consult Time Spent With Patient Time: Total time managing care of this patient today ____ minutes.
--- NOTE | 2022-07-28 12:56 | PC.NURSE ---
pt repositioned for lunch, eating independently. HR 105-133, cardizem increased to 15mg/hr. pt pending bed assignment.
--- NOTE | 2022-07-28 13:14 | PC.NURSE ---
RN-RN report given to [facility], transport notified.
[2022-07-28] MEDS: Furosemide 40 MG/4 ML VIAL IVPUSH (13:20)
[2022-07-28] MEDS: Metoprolol Tartrate 50 MG TABLET PO ×2 (13:20→20:38)
[2022-07-28 16:08] LABS: Glucose, Whole Blood 395 mg/dL (60-115)
[2022-07-28] MEDS: metFORMIN HCl 850 MG TABLET PO (16:18)
[2022-07-28] MEDS: Acetaminophen 325 MG TABLET 650 MG PO (17:18)
[2022-07-28 19:22] LABS: Glucose, Whole Blood 291 mg/dL (60-115)
[2022-07-28] MEDS: 0.9 % Sodium Chloride Flush 3 ML SYRINGE IVFLUSH (20:39)
[2022-07-28] MEDS: Insulin Glargine,Hum.rec.anlog 100 UNIT/ML 10 ML VIAL 15 UNIT SUBCUT (20:39)
[2022-07-28] MEDS: Atorvastatin Calcium 20 MG TABLET PO (20:39)
[2022-07-28] MEDS: dilTIAZem HCL 30 MG TABLET PO (21:43)
[2022-07-29] VITALS (9 sets, daily range): BP systolic 86–152; BP diastolic 52–76; PULSE 55–124; RESP 15–20; TEMP 36.2–37.1; O2SAT 94–97
--- NOTE | 2022-07-29 07:00 | CA_ITS ---
Transthoracic Echocardiogram Patient (Last, First, Middle): Princess Patterson C Gender: Female Date of : 1945 Age: 77 Procedure Date: 07/29/2022 Procedure Type: Transthoracic Echocardiogram [place] [facility] [place] Height: 152.4 cm Weight: 68.49 kg BSA: 1.66 m2 Heart Rate: bpm BP: 134 / 76 mmHg [employer] Engineer: SB Referring MD: Tej Rizvi MD Symptoms: afib, chf Study Quality: Adequate ECG Rhythm: Atrial flutter w frequent PVC Conclusions: - Normal left ventricular cavity size. There is mildly increased left ventricular wall thickness. The left ventricular systolic function is low normal. The visually estimated ejection fraction is between 50-55%. - Normal right ventricular cavity size. There is moderately decreased right ventricular systolic function. - There is moderate calcification of the aortic valve. There is severe aortic valve stenosis. The peak aortic velocity is 3.99 m/s. The mean gradient is 37 mmHg. The aortic valve area is 0.56 cm2. - The right ventricular systolic pressure is 50 mmHg. Significantly elevated right atrial pressure. Moderate pulmonary hypertension is present. - There is a small pericardial effusion. There is a large pleural effusion. Findings Left Ventricle Normal left ventricular cavity size. There is mildly increased left ventricular wall thickness. The left ventricular systolic function is low normal. The visually estimated ejection fraction is between 50-55%. Diastolic function is indeterminate on the basis of available data. Right Ventricle Normal right ventricular cavity size. There is moderately decreased right ventricular systolic function. Atria The left atrium is moderately dilated. The right atrium is moderately dilated. Aortic Valve There is moderate calcification of the aortic valve. There is severe aortic valve stenosis. The peak aortic velocity is 3.99 m/s. The mean gradient is 37 mmHg. The aortic valve area is 0.56 cm2. There is trace (trivial) aortic valve regurgitation. Mitral Valve There is mild mitral annular calcification. There is mild mitral valve regurgitation. There is no mitral valve stenosis. Pulmonic Valve Normal pulmonic valve structure and function. There is trace pulmonic valve regurgitation. Tricuspid Valve Normal tricuspid valve structure. There is mild to moderate tricuspid valve regurgitation. The right ventricular systolic pressure is 50 mmHg. Significantly elevated right atrial pressure. Moderate pulmonary hypertension is present. Great Vessels All visible segments of the aorta are normal in size. The visualized portions of the pulmonary artery and branches are normal. Venous The inferior vena cava is dilated and collapses less than 50% with inspiration. Pericardium/Pleural There is a small pericardial effusion. There is a large pleural effusion. Prior Study Comparison Changes noted compared to prior study dated: 12/12/2006. Severe present. Measurements 2D Linear Measurements IVSd: 0.96 0.6-0.9/0.6-1.0 cm LVIDd: 3.96 3.9-5.3/4.2-5.9 cm LVIDd Index: 2.39 2.4-3.2/2.2-3.1 cm/m2 LVIDs: 3.06 2.0-3.6 cm LVPWd: 0.97 0.7-1.1 cm LA Diam: 3.80 2.7-3.8/3.0-4.0 cm LAIDs Index: 2.29 1.5-2.3 cm/m2 LV Mass: 147.82 67-162/88-224 g LV Mass Index: 89.05 43-95/49-115 g/m2 LVOT Diam: 1.80 3.0+(-)1.3 cm 2D Systolic Function EF 4C: 50.20 >55% EF 2C: 56.80 >55% EF BiP: 53.90 >55% Aortic Valve AoV Pk Sawyer: 3.99 AoV Mn Sawyer: 2.56 AoV VTI: 0.81 AoV Pk Grad: 64.00 Aov Mn Grad: 37.00 THANG Cont.VTI: 0.56 AI Pk [place]yer: 3.68 AI Menard: 3.41 LVOT LVOT Pk [place]yer: 0.80 LVOT Mn [place]yer: 0.57 LVOT VTI: 0.18 LVOT Pk Grad: 3.00 LVOT Mn Grad: 1.00 LVOT Diam: 1.80 LVOT Area: 2.54 Right Ventricle TAPSE (mm): 9.90 TVS' Sawyer: 5.90 Tricuspid Valve TR Pk Sawyer: 2.96 TR Pk Grad: 35.00 RA Press: 15.00 RVSP: 50.00 Great Vessels Aorta Sinus of Valsalva: 2.70 2.0-3.5 cm Ao Asc: 2.90 2.1-3.4 cm Pulmonary Valve PV Pk Sawyer: 0.58 Peak PV Grad: 1.00 Updated in Other Vendor System with Status of Final Som Urrutia MD electronically signed on 07/30/2022 5:20:44 PM with status of Final
[2022-07-29 07:57] LABS: Hematocrit 44.3 % (37.0-47.0); Hemoglobin 14.7 g/dl (12.0-16.0); Mean Corpuscular HGB Conc 33.2 g/dl (31.0-35.0); Mean Corpuscular Hemoglobin 28.7 pg (27.0-33.0); Mean Corpuscular Volume 86.5 fL (80.0-98.0); Mean Platelet Volume 9.5 fL (9.4-12.3); Platelet Count 237 X10*3/uL (160-400); Red Blood Count 5.12 X10*6/uL (4.20-5.50); Red Cell Distribution Width 14.6 % (11.0-16.0); White Blood Count 16.5 X10*3/uL (4.8-10.8)
[2022-07-29 07:57] LABS: Glucose, Whole Blood 101 mg/dL (60-115)
[2022-07-29 08:11] LABS: Anion Gap 12 (12-20); Blood Urea Nitrogen 30 mg/dL (9-16); Carbon Dioxide 28 mmol/L (22-29); Chloride 101 mmol/L (96-108); Creatinine Clr Calc Pharmacy 34.9; Estimated Glomerular Filt Rate 46; Glucose Fasting 92 mg/dL (60-99); Glucose Random 92 mg/dL (60-115); Magnesium 1.7 mg/dL (1.6-2.6); Potassium 4.1 mmol/L (3.3-5.1); Sodium 137 mmol/L (135-145)
[2022-07-29] MEDS: Aspirin Enteric Coated 81 MG TABLET.DR PO (08:48)
[2022-07-29] MEDS: dilTIAZem HCL 30 MG TABLET PO (08:48)
[2022-07-29] MEDS: Multivitamin TABLET 1 TAB PO (08:49)
[2022-07-29] MEDS: Furosemide 40 MG/4 ML VIAL IVPUSH (08:50)
[2022-07-29] MEDS: Levothyroxine Sodium 112 MCG TABLET PO (08:50)
[2022-07-29] MEDS: 0.9 % Sodium Chloride Flush 3 ML SYRINGE IVFLUSH ×2 (08:50→16:50)
[2022-07-29] MEDS: Apixaban 5 MG TABLET PO ×2 (08:50→21:38)
[2022-07-29] MEDS: metFORMIN HCl 850 MG TABLET PO ×2 (08:50→16:50)
[2022-07-29] MEDS: Metoprolol Tartrate 50 MG TABLET PO (09:46)
--- NOTE | 2022-07-29 10:15 | PC.NURSE ---
pt HR decreased to 40s-50s (afib on tele). On assessment, pt is asymptomatic, no signs of reps distress. Dr Beavers notified. Continur to monitor
[2022-07-29 11:27] LABS: Glucose, Whole Blood 116 mg/dL (60-115)
--- NOTE | 2022-07-29 11:27 | HO.PM.IMPN ---
Subjective Subjective Date of Service: 07/29/22 Interval History: Seen and evaluated this morning HR better controlled BP dropped down Less anxious but still refusing some Meds and PT no other overnight events Review of Systems Review of Systems: Yes all other systems are reviewed and are negative Physical Exam Vital Signs: Vital Signs: Last Vital Signs Temp 98.0 F 07/29/22 10:50 Pulse 59 07/29/22 10:50 Resp 20 07/29/22 10:50 BP 86/52 L 07/29/22 10:50 Pulse Ox 94 07/29/22 10:50 O2 Del Method Room Air 07/29/22 10:50 O2 Flow Rate 2 07/27/22 22:00 BMI result Body Mass Index 29.6 Const: Other: Constitutional : Awake, interactive, mildly anxious Neck : Normal inspection, Supple Cardiovascular : irregular irregular, no JVP, no lower extremity edema Respiratory : good bilateral air entry, no crackles, wheezes or rhonchi Gastrointestinal: soft, lax, Normal bowel sounds, Non tender Skin : Warm, Dry Neurological : Alert & oriented x2, No focal deficit Objective Data Active Medications Acetaminophen (Acetaminophen 325 Mg Tablet) 650 mg PO Q6H PRN PRN Reason: Pain, Mild (Pain Scale 1-3) Last Admin: 07/28/22 17:18 Dose: 650 mg Documented By: JB Apixaban (Apixaban 5 Mg Tablet) 5 mg PO BID [facility] Last Admin: 07/29/22 08:50 Dose: 5 mg Documented By: MARISELA Aspirin (Aspirin Enteric Coated 81 Mg Tablet.) 81 mg PO DAILY [facility] Last Admin: 07/29/22 08:48 Dose: 81 mg Documented By: MARISELA Atorvastatin Calcium (Atorvastatin Calcium 20 Mg Tablet) 20 mg PO BEDTIME [facility] Last Admin: 07/28/22 20:39 Dose: 20 mg Documented By: LINDA-NIKAZEMarianna Cefuroxime Axetil (Cefuroxime Axetil 500 Mg Tablet) 500 mg PO BID [facility] Last Admin: 07/29/22 08:48 Dose: 500 mg Documented By: MARISELA Diltiazem HCl (Diltiazem Hcl 30 Mg Tablet) 30 mg PO QID [facility]; Protocol Last Admin: 07/29/22 08:48 Dose: 30 mg Documented By: MARISELA Enalapril Maleate (Enalapril Maleate 5 Mg Tablet) 20 mg PO DAILY [facility]; Protocol Last Admin: 07/29/22 08:49 Dose: 20 mg Documented By: MARISELA Glucose (Glucose Gel 15 Gm Gel..Gram.) 15 gm PO Q15M PRN; Protocol PRN Reason: per Hypoglycemia Standing Ord. Dextrose (D10) 250 mls @ 750 mls/hr IV Q15M PRN; Protocol PRN Reason: per Hypoglycemia Standing Ord. Sodium Chloride (Ns) 1,000 mls @ 999 mls/hr IV .Q1H1M [facility] Stop: 07/29/22 12:30 Insulin Glargine (Insulin Glargine,Hum.Rec.Anlog 100 Unit/Ml 10 Ml Vial) 15 unit SUBCUT BEDTIME [facility] Insulin Human Lispro (Insulin Lispro 100 Unit/Ml 3 Ml Vial) 0 unit SUBCUT QIDACHS [facility]; Protocol Last Admin: 07/29/22 08:45 Dose: Not Given Documented By: MARISELA Non-Admin Reason: No Insulin Coverage Levothyroxine Sodium (Levothyroxine Sodium 112 Mcg Tablet) 112 mcg PO DAILY@0600 [facility] Last Admin: 07/29/22 08:50 Dose: 112 mcg Documented By: MARISELA Metformin HCl (Metformin Hcl 850 Mg Tablet) 850 mg PO BIDWM [facility] Last Admin: 07/29/22 08:50 Dose: 850 mg Documented By: MARISELA Metoprolol Tartrate (Metoprolol Tartrate 50 Mg Tablet) 50 mg PO BID [facility]; Protocol Last Admin: 07/29/22 09:46 Dose: 50 mg Documented By: MARISELA Multivitamins/Vitamin C (Multivitamin Tablet) 1 tab PO DAILY [facility] Last Admin: 07/29/22 08:49 Dose: 1 tab Documented By: MARISELA Ondansetron HCl (Ondansetron Hcl 4 Mg/2 Ml Vial) 4 mg IVPUSH Q8H PRN PRN Reason: Nausea and Vomiting Quetiapine Fumarate (Quetiapine Fumarate 50 Mg Tablet) 50 mg PO Q8H PRN PRN Reason: anxiety/restlessness Sodium Chloride (0.9 % Sodium Chloride Flush 3 Ml Syringe) 3 ml IVFLUSH QSHIFT [facility] Last Admin: 07/29/22 08:50 Dose: 3 ml Documented By: MARISELA Labs 07/29/22 07:25 07/29/22 07:25 Labs: Laboratory Results - last 24 hr 07/28/22 07/28/22 07/28/22 11:35 16:04 19:19 MCV MCH MCHC RDW Plt Count MPV Absolute Nucleated RBC Nucleated RBC % (auto) Anion Gap Estim Creat Clear Calc Estimated GFR POC Glucose 288 H 395 H* 291 H Random Glucose Fasting Glucose Calcium Magnesium 07/29/22 07/29/22 07/29/22 07:06 07:25 07:25 MCV 86.5 MCH 28.7 MCHC 33.2 RDW 14.6 Plt Count 237 MPV 9.5 Absolute Nucleated RBC 0.000 Nucleated RBC % (auto) 0.0 Anion Gap 12 Estim Creat Clear Calc 34.9 Estimated GFR 46 POC Glucose 101 Random Glucose 92 Fasting Glucose 92 Calcium 9.0 Magnesium 1.7 Microbiology Microbiology Results: Microbiology 07/27/22 Unknown Urine Culture - Final Urine clean catch - Urine castellanos top 07/27/22 19:52 Blood Culture - Preliminary Blood - Venous No growth after 24 hours. 07/27/22 19:54 Blood Culture - Preliminary Blood - Venous No growth after 24 hours. Assessment and Plan (1) Neurodegenerative cognitive impairment: Status: Acute (2) Hyperglycemia: Status: Acute (3) Atrial fibrillation with RVR: Status: Acute Plan 77-year-old female with hypothyroidism, [id number] type 2 diabetes, hypertension, hyperlipidemia, paroxysmal atrial fibrillation anticoagulated with Eliquis, history of invasive ductal carcinoma of the breast, and history of uterine cancer presentd with mechanical fall, afib with rvr paroxysmal afib with rvr DC cardizem, Continue eliquis, metoprolol cardio eval echo chf unspecified echo pending holding diuretics for now hypotension give bolus DC Cardizem, hold Enalapril DC Lasix Capacity evaluated by psych on admission, has no capacity to sign AMA will need reeval by psych today DM with hyperglycemia insulin hypothryoid synthroid hld statin hisotry of breast and uterine cancer outpatinet oncology follow up dvt prophylaxis Eliquis full code patient with afib with rvr, hypotensive, at risk for further decompensation due to advanced age, frailty, dm, therefore, expected to require overnight inpatient. Time Spent With Patient Time: Total time managing care of this patient today ____ minutes. Quality Stroke Does the patient have a stroke diagnosis?: No VTE Prior VTE?: No VTE Risk Level:: Medical - moderate - high VTE Device Contraindication: Treatment Not Indicated VTE Drug Contraindication: N/A - Med Ordered
[2022-07-29] MEDS: 0.9 % Sodium Chloride 1,000 ML 999 ML IV (11:51)
--- NOTE | 2022-07-29 13:37 | P.CONCA_ITS ---
History of Present Illness History of Present Illness Date of Service: 07/29/22 Requesting physician: Tamera Beavers Chief complaint: fall, afib rvr Narrative: 77-year-old female with permanent atrial fibrillation for which she has been on Eliquis and metoprolol tartrate 50 mg twice a day presenting with mechanical fall. She has dementia. It appears she had a mechanical fall and was admitted for that. She was noticed to be in AFib with RVR. Reviewing her EKG previously she was in atrial fibrillation. She is denying any symptoms from AFib in particular no palpitations. No chest discomfort shortness of breath. She has been on aspirin and Eliquis. Telemetry reviewed and she has slow ventricular response with heart rates 40s to 60s. As mentioned she is denying any symptoms. [facility] Past Medical History Medical History Asymptomatic bacteriuria Atrial fibrillation Chronic anticoagulation History of uterine cancer HLD (hyperlipidemia) HTN (hypertension) Hypothyroidism Invasive ductal carcinoma of left breast Type 2 diabetes mellitus Surgical History Surgical History History of hysterectomy for cancer History of knee surgery History of lumpectomy of right breast (05/25/17) History of right breast biopsy Social History Social History Household Members: None Housing: House Do you presently have visiting nurse or other home services: No Alcohol intake: never Patient Tobacco Use Status: Never used Tobacco Use of substances other than those prescribed or required for medical reasons: No Currently Displaying Signs/Symptoms of Drug Intoxication Withdrawal: No Have you been hit, kicked, punched, or otherwise hurt by someone within the past year? If so, by whom?: No Do you feel safe in your current relationship?: No Current Relationship Is there a partner from a previous relationship who is making you feel unsafe no w?: No Are you made to feel afraid or neglected: No Advance Directives: No Advance Directives Information Provided: No Do you have thoughts of harming others: None Recently lost weight without trying: No How much weight loss: Not applicable Eating poorly because of decreased appetite: No Nutrition screen score: 0 Patient : No Poor oral hygiene: No service: No Current occupational status: retired Meds Allergies Allergy/AdvReac Type Severity Reaction Status Date / Time No Known Allergies Allergy Unverified 12/23/19 15:40 [No Known Allergies*] Active Medications: Current Medications Acetaminophen (Acetaminophen 325 Mg Tablet) 650 mg PO Q6H PRN PRN Reason: Pain, Mild (Pain Scale 1-3) Last Admin: 07/28/22 17:18 Dose: 650 mg Apixaban (Apixaban 5 Mg Tablet) 5 mg PO BID [facility] Last Admin: 07/29/22 08:50 Dose: 5 mg Aspirin (Aspirin Enteric Coated 81 Mg Tablet.Dr) 81 mg PO DAILY [facility] Last Admin: 07/29/22 08:48 Dose: 81 mg Atorvastatin Calcium (Atorvastatin Calcium 20 Mg Tablet) 20 mg PO BEDTIME [facility] Last Admin: 07/28/22 20:39 Dose: 20 mg Cefuroxime Axetil (Cefuroxime Axetil 500 Mg Tablet) 500 mg PO BID [facility] Last Admin: 07/29/22 08:48 Dose: 500 mg Enalapril Maleate (Enalapril Maleate 5 Mg Tablet) 20 mg PO DAILY [facility]; Protocol Last Admin: 07/29/22 08:49 Dose: 20 mg Glucose (Glucose Gel 15 Gm Gel..Gram.) 15 gm PO Q15M PRN; Protocol PRN Reason: per Hypoglycemia Standing Ord. Dextrose (D10) 250 mls @ 750 mls/hr IV Q15M PRN; Protocol PRN Reason: per Hypoglycemia Standing Ord. Insulin Glargine (Insulin Glargine,Hum.Rec.Anlog 100 Unit/Ml 10 Ml Vial) 15 unit SUBCUT BEDTIME [facility] Insulin Human Lispro (Insulin Lispro 100 Unit/Ml 3 Ml Vial) 0 unit SUBCUT QIDACHS [facility]; Protocol Last Admin: 07/29/22 11:51 Dose: Not Given Levothyroxine Sodium (Levothyroxine Sodium 112 Mcg Tablet) 112 mcg PO DAILY@0600 [facility] Last Admin: 07/29/22 08:50 Dose: 112 mcg Metformin HCl (Metformin Hcl 850 Mg Tablet) 850 mg PO BIDWM [facility] Last Admin: 07/29/22 08:50 Dose: 850 mg Metoprolol Tartrate (Metoprolol Tartrate 50 Mg Tablet) 50 mg PO BID [facility]; Pr otocol Last Admin: 07/29/22 09:46 Dose: 50 mg Multivitamins/Vitamin C (Multivitamin Tablet) 1 tab PO DAILY [facility] Last Admin: 07/29/22 08:49 Dose: 1 tab Ondansetron HCl (Ondansetron Hcl 4 Mg/2 Ml Vial) 4 mg IVPUSH Q8H PRN PRN Reason: Nausea and Vomiting Quetiapine Fumarate (Quetiapine Fumarate 50 Mg Tablet) 50 mg PO Q8H PRN PRN Reason: anxiety/restlessness Sodium Chloride (0.9 % Sodium Chloride Flush 3 Ml Syringe) 3 ml IVFLUSH QSHIFT [facility] Last Admin: 07/29/22 08:50 Dose: 3 ml Home Medications Medication Instructions Recorded Confirmed Last Taken Type aspirin 81 mg tablet,delayed 81 mg PO DAILY 05/05/20 07/28/22 2 Days Ago History release ~07/26/22 atorvastatin 20 mg tablet 20 mg PO BEDTIME 05/05/20 07/28/22 2 Days Ago History ~07/26/22 blood sugar diagnostic #10 ea 05/05/20 07/28/22 Unknown History enalapril maleate 20 mg tablet 20 mg PO DAILY 05/05/20 07/28/22 2 Days Ago History ~07/26/22 levothyroxine 112 mcg tablet 112 mcg PO DAILY@0600 05/05/20 07/28/22 2 Days Ago History ~07/26/22 multivitamin 1 tab PO DAILY 05/05/20 07/28/22 2 Days Ago History ~07/26/22 apixaban 5 mg tablet (Eliquis) 5 mg PO BID 07/21/22 07/28/22 2 Days Ago History ~07/26/22 ceramides 1,3,6-II (CeraVe topical 1 appl topical NEEDED PRN Dry 07/28/22 07/28/22 Unknown History cream) Skin glipizide 10 mg tablet 10 mg PO DAILY 07/28/22 07/28/22 2 Days Ago History ~07/26/22 Physical Exam Vital Signs: Vital Signs: Last Vital Signs Temp 98.0 F 07/29/22 10:50 Pulse 59 07/29/22 10:50 Resp 20 07/29/22 10:50 BP 110/57 L 07/29/22 13:00 Pulse Ox 94 07/29/22 10:50 O2 Del Method Room Air 07/29/22 10:50 O2 Flow Rate 2 07/27/22 22:00 BMI result Body Mass Index 29.6 GENERAL APPEARANCE: in no acute distress, pleasant. NECK: no carotid bruit, no jugular venous distention. SKIN: no suspicious lesions, warm and dry. HEART: no murmurs, irregular rate and rhythm. LUNGS: clear to auscultation bilaterally. ABDOMEN: soft, nontender. EXTREMITIES: no edema. PERIPHERAL PULSES: equal. NEUROLOGIC: No gross deficits, awake and following simple commands. Objective Labs and Meds 07/29/22 07:25 07/29/22 07:25 Lab results: Laboratory Results - last 24 hr 07/28/22 07/28/22 07/29/22 16:04 19:19 07:06 WBC RBC Hgb Hct MCV MCH MCHC RDW Plt Count MPV Absolute Nucleated RBC Nucleated RBC % (auto) Sodium Potassium Chloride Carbon Dioxide Anion Gap BUN Creatinine Estim Creat Clear Calc Estimated GFR POC Glucose 395 H* 291 H 101 Random Glucose Fasting Glucose Calcium Magnesium 07/29/22 07/29/22 07/29/22 07:25 07:25 10:53 WBC 16.5 H RBC 5.12 Hgb 14.7 Hct 44.3 MCV 86.5 MCH 28.7 MCHC 33.2 RDW 14.6 Plt Count 237 MPV 9.5 Absolute Nucleated RBC 0.000 Nucleated RBC % (auto) 0.0 Sodium 137 Potassium 4.1 Chloride 101 Carbon Dioxide 28 Anion Gap 12 BUN 30 H Creatinine 1.15 Estim Creat Clear Calc 34.9 Estimated GFR 46 POC Glucose 116 H Random Glucose 92 Fasting Glucose 92 Calcium 9.0 Magnesium 1.7 Assessment and Plan (1) Atrial fibrillation with RVR: Status: Acute Plan 77-year-old female with background dementia who is presenting with mechanical fall and is noticed to be in AFib with RVR. She was given diltiazem in the emergency department yesterday and her home dose of metoprolol was resumed at 50 mg 2 times a day. Today her heart rates are in 40s to 60s. She is denying any symptoms. I think metoprolol can be continued at the 25 mg b.i.d.. Obviously if she has significant pauses more than 5 seconds or symptomatic bradycardia then we may have to discuss permanent pacemaker placement. Aspirin can be discontinued if being given for primary prevention. Will follow along with you. Thank you for allowing me to participate in the care of your patient. Please feel free to contact me if you have any questions. Time Spent With Patient Time: Total time managing care of this patient today ____ minutes. Procedures Date of Service Date of Service: 07/29/22
--- NOTE | 2022-07-29 14:06 | P.CNPS_ITS ---
History of Present Illness Date of Service: t Chief Complaint: fall, afib rvr Reason for Consult: Reassessment of capacity to sign AMA and participated treatment plan Requesting physician: Tamera Beavers Discussed with referring provider: Yes Sources of Information: patient interviewed and chart reviewed HPI Narrative: The patient is a 77-year-old female with a history of several medical comorbidities such as CHF, hyperglycemia, atrial fibrillation and recent onset of exacerbation of dementia admitted after a fall. The present consult was placed to reassess capacity to sign AMA and participation in treatment team. The patient is known by me since I assess her yesterday. Yesterday I explained her why she is in the hospital and why there is the need of treatment. The patient did not show any insight into her limitations and conditions. So, yesterday she did not have capacity to take informed decisions and sign AMA she she could not assess the gravity of her condition. Also, she was unable to repeat why she was in the hospital. On assessment today, the patient could not remember me, she could not remember the conversation that we have before, I explained her again why she is in the hospital. The patient was unable to recall or answer back. She stated that she was feeling very tired and I advised her that she should continue having treatment and she was in agreement. We discussed the case with his primary provider and we need to invoke the healthcare proxy since she is unable to take care informed decisions regarding AMA or treatment participation. Past Psychiatric History: No known history of inpatient or outpatient psychiatric treatment. Medical Evaluation Reviewed: Yes [facility] Medical History Asymptomatic bacteriuria Atrial fibrillation Chronic anticoagulation History of uterine cancer HLD (hyperlipidemia) HTN (hypertension) Hypothyroidism Invasive ductal carcinoma of left breast Type 2 diabetes mellitus Surgical History History of hysterectomy for cancer History of knee surgery History of lumpectomy of right breast (05/25/17) History of right breast biopsy Family History: Denies Social History: Lives alone, she has VNA Trauma History: None known Diagnostics Vital Signs (24Hr): Vital Signs - 24 hr 07/28/22 15:21 07/28/22 19:04 07/29/22 00:00 Temperature 98.0 F 97.2 F 97.9 F Pulse Rate 103 H 51 59 Respiratory Rate 20 20 15 Blood Pressure 116/56 L 164/68 H 152/65 H Pulse Oximetry 96 95 94 Oxygen Delivery Method Room Air Room Air Room Air 07/29/22 04:00 07/29/22 07:09 07/29/22 10:02 Temperature 98.1 F 97.2 F Pulse Rate 62 63 124 H Respiratory Rate 15 20 Blood Pressure 126/59 L 134/76 Pulse Oximetry 95 96 Oxygen Delivery Method Room Air Room Air 07/29/22 10:50 07/29/22 13:00 Temperature 98.0 F Pulse Rate 59 Respiratory Rate 20 Blood Pressure 86/52 L 110/57 L Pulse Oximetry 94 Oxygen Delivery Method Room Air BMI result Body Mass Index 29.6 Labs 07/29/22 07:25 07/29/22 07:25 Labs: Laboratory Results - last 48 hr 07/27/22 07/27/22 07/27/22 19:27 19:53 19:53 WBC 12.8 H RBC 5.29 Hgb 15.2 Hct 44.9 MCV 84.9 MCH 28.7 MCHC 33.9 RDW 14.2 Plt Count 208 D MPV 10.0 Immature Gran % (Auto) 0.5 H Neut % (Auto) 83.8 H Lymph % (Auto) 5.5 L [place] % (Auto) 9.8 Eos % (Auto) 0.2 Baso % (Auto) 0.2 Lymph # (Auto) 0.7 L [place] # (Auto) 1.3 H Eos # (Auto) 0.0 Baso # (Auto) 0.0 Abs Immat Gran (auto) 0.07 H Absolute Neuts (auto) 10.8 H Absolute Nucleated RBC 0.000 Nucleated RBC % (auto) 0.0 PT INR VBG pH VBG pCO2 VBG pO2 VBG HCO3 VBG O2 Saturation VBG Base Excess Sodium 138 Potassium 4.1 Chloride 102 Carbon Dioxide 24 Anion Gap 16 BUN 26 H Creatinine 0.96 Estim Creat Clear Calc 41.5 Estimated GFR 56 POC Glucose 409 H* Random Glucose 461 H* Fasting Glucose Lactic Acid Lactic Acid F/U @ 2Hr Calcium 9.2 D Magnesium 1.8 Total Bilirubin 0.7 Direct Bilirubin 0.2 AST 44 H ALT 65 H Alkaline Phosphatase 118 H Total Creatine Kinase 180 H Troponin I High Sens B-Natriuretic Peptide Total Protein 6.2 L Albumin 3.3 L TSH Free T4 Urine Color Urine Appearance Urine pH Ur Specific [place] Urine Protein Urine Glucose (UA) Urine Ketones Urine Blood Urine Nitrite Ur Leukocyte Esterase Urine RBC Urine WBC Ur Squamous Epith Cells Urine Bacteria Hyaline Casts 07/27/22 07/27/22 07/27/22 19:53 19:53 19:54 WBC RBC Hgb Hct MCV MCH MCHC RDW Plt Count MPV Immature Gran % (Auto) Neut % (Auto) Lymph % (Auto) [place] % (Auto) Eos % (Auto) Baso % (Auto) Lymph # (Auto) [place] # (Auto) Eos # (Auto) Baso # (Auto) Abs Immat Gran (auto) Absolute Neuts (auto) Absolute Nucleated RBC Nucleated RBC % (auto) PT 11.9 INR 1.0 VBG pH VBG pCO2 VBG pO2 VBG HCO3 VBG O2 Saturation VBG Base Excess Sodium Potassium Chloride Carbon Dioxide Anion Gap BUN Creatinine Estim Creat Clear Calc Estimated GFR POC Glucose Random Glucose Fasting Glucose Lactic Acid 2.4 H* Lactic Acid F/U @ 2Hr Calcium Magnesium Total Bilirubin Direct Bilirubin AST ALT Alkaline Phosphatase Total Creatine Kinase Troponin I High Sens 16.6 B-Natriuretic Peptide Total Protein Albumin TSH Free T4 Urine Color Urine Appearance Urine pH Ur Specific [place] Urine Protein Urine Glucose (UA) Urine Ketones Urine Blood Urine Nitrite Ur Leukocyte Esterase Urine RBC Urine WBC Ur Squamous Epith Cells Urine Bacteria Hyaline Casts 07/27/22 07/27/22 07/27/22 19:54 19:54 20:00 WBC RBC Hgb Hct MCV MCH MCHC RDW Plt Count MPV Immature Gran % (Auto) Neut % (Auto) Lymph % (Auto) [place] % (Auto) Eos % (Auto) Baso % (Auto) Lymph # (Auto) [place] # (Auto) Eos # (Auto) Baso # (Auto) Abs Immat Gran (auto) Absolute Neuts (auto) Absolute Nucleated RBC Nucleated RBC % (auto) PT INR VBG pH 7.46 H VBG pCO2 38 VBG pO2 55 VBG HCO3 27 H VBG O2 Saturation 86.0 VBG Base Excess 4.2 Sodium Potassium Chloride Carbon Dioxide Anion Gap BUN Creatinine Estim Creat Clear Calc Estimated GFR POC Glucose Random Glucose Fasting Glucose Lactic Acid Lactic Acid F/U @ 2Hr Calcium Magnesium Total Bilirubin Direct Bilirubin AST ALT Alkaline Phosphatase Total Creatine Kinase Troponin I High Sens B-Natriuretic Peptide 213 H Total Protein Albumin TSH 6.13 H Free T4 0.99 Urine Color Urine Appearance Urine pH Ur Specific [place] Urine Protein Urine Glucose (UA) Urine Ketones Urine Blood Urine Nitrite Ur Leukocyte Esterase Urine RBC Urine WBC Ur Squamous Epith Cells Urine Bacteria Hyaline Casts 07/27/22 07/27/22 07/27/22 20:14 22:20 22:55 WBC RBC Hgb Hct MCV MCH MCHC RDW Plt Count MPV Immature Gran % (Auto) Neut % (Auto) Lymph % (Auto) [place] % (Auto) Eos % (Auto) Baso % (Auto) Lymph # (Auto) [place] # (Auto) Eos # (Auto) Baso # (Auto) Abs Immat Gran (auto) Absolute Neuts (auto) Absolute Nucleated RBC Nucleated RBC % (auto) PT INR VBG pH VBG pCO2 VBG pO2 VBG HCO3 VBG O2 Saturation VBG Base Excess Sodium Potassium Chloride Carbon Dioxide Anion Gap BUN Creatinine Estim Creat Clear Calc Estimated GFR POC Glucose 306 H Random Glucose Fasting Glucose Lactic Acid Lactic Acid F/U @ 2Hr 4.2 H* Calcium Magnesium Total Bilirubin Direct Bilirubin AST ALT Alkaline Phosphatase Total Creatine Kinase Troponin I High Sens B-Natriuretic Peptide Total Protein Albumin TSH Free T4 Urine Color Yellow Urine Appearance Clear Urine pH 5.5 Ur Specific [place] >= 1.030 H Urine Protein 30 (1+) H Urine Glucose (UA) >=1000 H Urine Ketones 15 Urine Blood Small (1+) H Urine Nitrite Negative Ur Leukocyte Esterase Negative Urine RBC 3-5 H Urine WBC 6-10 Ur Squamous Epith Cells 3-5 Urine Bacteria None Seen Hyaline Casts 0-2 07/28/22 07/28/22 07/28/22 02:25 07:02 08:41 WBC RBC Hgb Hct MCV MCH MCHC RDW Plt Count MPV Immature Gran % (Auto) Neut % (Auto) Lymph % (Auto) [place] % (Auto) Eos % (Auto) Baso % (Auto) Lymph # (Auto) [place] # (Auto) Eos # (Auto) Baso # (Auto) Abs Immat Gran (auto) Absolute Neuts (auto) Absolute Nucleated RBC Nucleated RBC % (auto) PT INR VBG pH VBG pCO2 VBG pO2 VBG HCO3 VBG O2 Saturation VBG Base Excess Sodium Potassium Chloride Carbon Dioxide Anion Gap BUN Creatinine Estim Creat Clear Calc Estimated GFR POC Glucose 292 H 373 H* 328 H Random Glucose Fasting Glucose Lactic Acid Lactic Acid F/U @ 2Hr Calcium Magnesium Total Bilirubin Direct Bilirubin AST ALT Alkaline Phosphatase Total Creatine Kinase Troponin I High Sens B-Natriuretic Peptide Total Protein Albumin TSH Free T4 Urine Color Urine Appearance Urine pH Ur Specific [place] Urine Protein Urine Glucose (UA) Urine Ketones Urine Blood Urine Nitrite Ur Leukocyte Esterase Urine RBC Urine WBC Ur Squamous Epith Cells Urine Bacteria Hyaline Casts 07/28/22 07/28/22 07/28/22 11:35 16:04 19:19 WBC RBC Hgb Hct MCV MCH MCHC RDW Plt Count MPV Immature Gran % (Auto) Neut % (Auto) Lymph % (Auto) [place] % (Auto) Eos % (Auto) Baso % (Auto) Lymph # (Auto) [place] # (Auto) Eos # (Auto) Baso # (Auto) Abs Immat Gran (auto) Absolute Neuts (auto) Absolute Nucleated RBC Nucleated RBC % (auto) PT INR VBG pH VBG pCO2 VBG pO2 VBG HCO3 VBG O2 Saturation VBG Base Excess Sodium Potassium Chloride Carbon Dioxide Anion Gap BUN Creatinine Estim Creat Clear Calc Estimated GFR POC Glucose 288 H 395 H* 291 H Random Glucose Fasting Glucose Lactic Acid Lactic Acid F/U @ 2Hr Calcium Magnesium Total Bilirubin Direct Bilirubin AST ALT Alkaline Phosphatase Total Creatine Kinase Troponin I High Sens B-Natriuretic Peptide Total Protein Albumin TSH Free T4 Urine Color Urine Appearance Urine pH Ur Specific [place] Urine Protein Urine Glucose (UA) Urine Ketones Urine Blood Urine Nitrite Ur Leukocyte Esterase Urine RBC Urine WBC Ur Squamous Epith Cells Urine Bacteria Hyaline Casts 07/29/22 07/29/22 07/29/22 07:06 07:25 07:25 WBC 16.5 H RBC 5.12 Hgb 14.7 Hct 44.3 MCV 86.5 MCH 28.7 MCHC 33.2 RDW 14.6 Plt Count 237 MPV 9.5 Immature Gran % (Auto) Neut % (Auto) Lymph % (Auto) [place] % (Auto) Eos % (Auto) Baso % (Auto) Lymph # (Auto) [place] # (Auto) Eos # (Auto) Baso # (Auto) Abs Immat Gran (auto) Absolute Neuts (auto) Absolute Nucleated RBC 0.000 Nucleated RBC % (auto) 0.0 PT INR VBG pH VBG pCO2 VBG pO2 VBG HCO3 VBG O2 Saturation VBG Base Excess Sodium 137 Potassium 4.1 Chloride 101 Carbon Dioxide 28 Anion Gap 12 BUN 30 H Creatinine 1.15 Estim Creat Clear Calc 34.9 Estimated GFR 46 POC Glucose 101 Random Glucose 92 Fasting Glucose 92 Lactic Acid Lactic Acid F/U @ 2Hr Calcium 9.0 Magnesium 1.7 Total Bilirubin Direct Bilirubin AST ALT Alkaline Phosphatase Total Creatine Kinase Troponin I High Sens B-Natriuretic Peptide Total Protein Albumin TSH Free T4 Urine Color Urine Appearance Urine pH Ur Specific [place] Urine Protein Urine Glucose (UA) Urine Ketones Urine Blood Urine Nitrite Ur Leukocyte Esterase Urine RBC Urine WBC Ur Squamous Epith Cells Urine Bacteria Hyaline Casts 07/29/22 10:53 WBC RBC Hgb Hct MCV MCH MCHC RDW Plt Count MPV Immature Gran % (Auto) Neut % (Auto) Lymph % (Auto) [place] % (Auto) Eos % (Auto) Baso % (Auto) Lymph # (Auto) [place] # (Auto) Eos # (Auto) Baso # (Auto) Abs Immat Gran (auto) Absolute Neuts (auto) Absolute Nucleated RBC Nucleated RBC % (auto) PT INR VBG pH VBG pCO2 VBG pO2 VBG HCO3 VBG O2 Saturation VBG Base Excess Sodium Potassium Chloride Carbon Dioxide Anion Gap BUN Creatinine Estim Creat Clear Calc Estimated GFR POC Glucose 116 H Random Glucose Fasting Glucose Lactic Acid Lactic Acid F/U @ 2Hr Calcium Magnesium Total Bilirubin Direct Bilirubin AST ALT Alkaline Phosphatase Total Creatine Kinase Troponin I High Sens B-Natriuretic Peptide Total Protein Albumin TSH Free T4 Urine Color Urine Appearance Urine pH Ur Specific [place] Urine Protein Urine Glucose (UA) Urine Ketones Urine Blood Urine Nitrite Ur Leukocyte Esterase Urine RBC Urine WBC Ur Squamous Epith Cells Urine Bacteria Hyaline Casts Imaging Radiology Impressions: ITS Impressions Chest X-Ray 07/27/22 20:30 IMPRESSION: CHF Mental Status Exam Mental Status Exam Patient Appearance: Appropriate Patient Orientation: Person Level of Consciousness: Appropriate and Disoriented Patient Behavior: Guarded, Passive and Suspicious Mood Description: Constricted Affect Description: Blunted Patient Cognition Impaired: Yes Ability to Follow Directions: Fair Speech Pattern: Impoverished and Mumbled Hallucinations: None Delusions: Not Present Thought Process: Distracted and Slowed Thinking Thought Content: positive for [place] Judgement: Poor Medications Medications Current Medications Acetaminophen (Acetaminophen 325 Mg Tablet) 650 mg PO Q6H PRN PRN Reason: Pain, Mild (Pain Scale 1-3) Last Admin: 07/28/22 17:18 Dose: 650 mg Apixaban (Apixaban 5 Mg Tablet) 5 mg PO BID [facility] Last Admin: 07/29/22 08:50 Dose: 5 mg Aspirin (Aspirin Enteric Coated 81 Mg Tablet.Dr) 81 mg PO DAILY [facility] Last Admin: 07/29/22 08:48 Dose: 81 mg Atorvastatin Calcium (Atorvastatin Calcium 20 Mg Tablet) 20 mg PO BEDTIME [facility] Last Admin: 07/28/22 20:39 Dose: 20 mg Cefuroxime Axetil (Cefuroxime Axetil 500 Mg Tablet) 500 mg PO BID [facility] Last Admin: 07/29/22 08:48 Dose: 500 mg Enalapril Maleate (Enalapril Maleate 5 Mg Tablet) 20 mg PO DAILY [facility]; Protocol Last Admin: 07/29/22 08:49 Dose: 20 mg Glucose (Glucose Gel 15 Gm Gel..Gram.) 15 gm PO Q15M PRN; Protocol PRN Reason: per Hypoglycemia Standing Ord. Dextrose (D10) 250 mls @ 750 mls/hr IV Q15M PRN; Protocol PRN Reason: per Hypoglycemia Standing Ord. Insulin Glargine (Insulin Glargine,Hum.Rec.Anlog 100 Unit/Ml 10 Ml Vial) 15 unit SUBCUT BEDTIME [facility] Insulin Human Lispro (Insulin Lispro 100 Unit/Ml 3 Ml Vial) 0 unit SUBCUT QIDACHS [facility]; Protocol Last Admin: 07/29/22 11:51 Dose: Not Given Levothyroxine Sodium (Levothyroxine Sodium 112 Mcg Tablet) 112 mcg PO DAILY@0600 [facility] Last Admin: 07/29/22 08:50 Dose: 112 mcg Metformin HCl (Metformin Hcl 850 Mg Tablet) 850 mg PO BIDWM [facility] Last Admin: 07/29/22 08:50 Dose: 850 mg Metoprolol Tartrate (Metoprolol Tartrate 25 Mg Tablet) 25 mg PO BID [facility]; Protocol Multivitamins/Vitamin C (Multivitamin Tablet) 1 tab PO DAILY [facility] Last Admin: 07/29/22 08:49 Dose: 1 tab Ondansetron HCl (Ondansetron Hcl 4 Mg/2 Ml Vial) 4 mg IVPUSH Q8H PRN PRN Reason: Nausea and Vomiting Quetiapine Fumarate (Quetiapine Fumarate 50 Mg Tablet) 50 mg PO Q8H PRN PRN Reason: anxiety/restlessness Sodium Chloride (0.9 % Sodium Chloride Flush 3 Ml Syringe) 3 ml IVFLUSH QSHIFT [facility] Last Admin: 07/29/22 08:50 Dose: 3 ml Allergies Allergies Allergy/AdvReac Type Severity Reaction Status Date / Time No Known Allergies Allergy Unverified 12/23/19 15:40 [No Known Allergies*] Assessment & Plan Assessment & Plan (1) Neurodegenerative cognitive impairment: Status: Acute Code(s): G31.9 - Degenerative disease of nervous system, unspecified (2) CHF (congestive heart failure): Status: Acute Code(s): I50.9 - Heart failure, unspecified (3) Hyperglycemia: Status: Acute Code(s): R73.9 - Hyperglycemia, unspecified (4) Atrial fibrillation with RVR: Status: Acute Code(s): I48.91 - Unspecified atrial fibrillation (5) Polycythemia: Status: Acute Code(s): D75.1 - Secondary polycythemia (6) Acute metabolic encephalopathy: Status: Acute Code(s): G93.41 - Metabolic encephalopathy (7) UTI (urinary tract infection): Status: Acute Code(s): N39.0 - Urinary tract infection, site not specified (8) Type 2 diabetes mellitus: Status: Acute Code(s): E11.9 - Type 2 diabetes mellitus without complications (9) Delirium due to medical condition without behavioral disturbance: Status: Acute Code(s): F05 - Delirium due to known physiological condition Plan The patient is an elderly female with several medical comorbidities such as CHF, hypercalcemia, treated 5 relation, breast cancer admitted again for a recent fall. The present consult was to reassess her capacity to sign AMA or participation in treatment plan. At this moment, the patient does not have capacity to participate on treatment plan or sign AMA. Please invoke the healthcare proxy. Reassessment if mental status changes at this moment, the patient looks delirious. Total time managing care of this patient today __20__ minutes. Patient educated on: diagnosis Informed Consent: does not understand
--- NOTE | 2022-07-29 15:09 | MHC.CM.PN ---
CM RECEIVED A CALL FROM ROSANGELA MOISE FROM [facility] [phone] EXT [phone] TO FOLLOW UP W/PT AFTER [facility] AT RISK WAS FILED PRIOR TO D/C LAST WEEK, ROSANGELA IS AWARE THERE IS NO PLAN FOR D/C AT THIS TIME AND WILL BE IN FOR BEDSIDE VISIT TOMORROW 07/30 EARLY IN DAY.
--- NOTE | 2022-07-29 15:36 | MHC.CM.PN ---
PT RECENTLY DC'D PT LIVES ALONE AND HAS [facility] FOR DAILY VS AND MED RECONCILIATIONS PT SEES [facility] FOR PRIMARY CARE SHE COMPLETED A HCP DURING HER LAST ADMISSION SHE IS COVID VAX PT WAS SEEN BY PSYCH AND DETERMINED UNABLE TO MAKE HER MEDICAL DECISIONS CM CALLED PTS DAUGHTER/HCP, LIAM CONTRERAS [phone] WHO WAS UNAWARE SHE WAS PTS HCP SHE REPORTS SHE THOUGHT SHE WOULD BE ABLE TO SIGN HER OVER A [place] THE [place] SHE REPORTS SHE WANTS HER TO GO TO A SNF LT CM INFORMED HER THIS WAS NOT HOW IT WORKED, THE PTS ASSETS WOULD NEED TO BE LIQUIDATED TO PAY FOR HER CARE AND A MH JUWAN WOULD NEED TO BE DONE TO PAY FOR HER CARE ONCE HER MONEY RUNS OUT SHE IS AWARE A REFERRAL WAS MADE TO [facility] AND THEY WOULD CONTACT HER TO WORK ON THE MH JUWAN SHE WAS ALSO MADE AWARE THAT PT WOULD LIKELY BE RE-EVALUATED ONCE MEDICALLY IMPROVED AND IF SHE WAS DEEMED TO HAVE CAPACITY, SHE WOULD BE ABLE TO DETERMINE HER OWN DC PLAN DCP TBD: IF PT DOES NOT REGAIN CAPACITY, SHE WILL BE A LTC BED SEARCH PER HCP IF SHE DOES REGAIN CAPACITY, HER DCP WILL BE HOME WITH RESUMPTION OF VNA VS STR
[2022-07-29 16:27] LABS: Glucose, Whole Blood 131 mg/dL (60-115)
[2022-07-29] MEDS: Acetaminophen 325 MG TABLET 650 MG PO (17:42)
[2022-07-29 20:14] LABS: Glucose, Whole Blood 119 mg/dL (60-115)
[2022-07-29] MEDS: Metoprolol Tartrate 25 MG TABLET PO (21:38)
[2022-07-29] MEDS: Atorvastatin Calcium 20 MG TABLET PO (21:38)
[2022-07-30] VITALS (7 sets, daily range): BP systolic 110–145; BP diastolic 57–78; PULSE 63–79; RESP 18–20; TEMP 36.1–36.6; O2SAT 93–97
[2022-07-30 07:27] LABS: Glucose, Whole Blood 218 mg/dL (60-115)
[2022-07-30 07:49] LABS: Hematocrit 44.9 % (37.0-47.0); Hemoglobin 14.9 g/dl (12.0-16.0); Mean Corpuscular HGB Conc 33.2 g/dl (31.0-35.0); Mean Corpuscular Hemoglobin 29.1 pg (27.0-33.0); Mean Corpuscular Volume 87.7 fL (80.0-98.0); Mean Platelet Volume 9.9 fL (9.4-12.3); Platelet Count 224 X10*3/uL (160-400); Red Blood Count 5.12 X10*6/uL (4.20-5.50); Red Cell Distribution Width 14.6 % (11.0-16.0); White Blood Count 12.4 X10*3/uL (4.8-10.8)
[2022-07-30] MEDS: glipiZIDE 5 MG TABLET PO (08:03)
[2022-07-30] MEDS: Aspirin Enteric Coated 81 MG TABLET.DR PO (08:03)
[2022-07-30] MEDS: metFORMIN HCl 850 MG TABLET PO ×2 (08:03→17:00)
[2022-07-30] MEDS: Apixaban 5 MG TABLET PO ×2 (08:05→21:08)
[2022-07-30] MEDS: Insulin Lispro 100 UNIT/ML 3 ML VIAL SUBCUT ×3 (08:05→17:00)
[2022-07-30] MEDS: 0.9 % Sodium Chloride Flush 3 ML SYRINGE IVFLUSH ×2 (08:05→17:06)
[2022-07-30] MEDS: Multivitamin TABLET 1 TAB PO (08:05)
[2022-07-30] MEDS: Metoprolol Tartrate 25 MG TABLET PO ×2 (08:07→21:08)
[2022-07-30 08:28] LABS: Anion Gap 15 (12-20); Blood Urea Nitrogen 31 mg/dL (9-16); Calcium 8.6 mg/dL (8.4-10.2); Carbon Dioxide 22 mmol/L (22-29); Chloride 101 mmol/L (96-108); Creatinine Clr Calc Pharmacy 46.7; Estimated Glomerular Filt Rate > 60; Glucose Random 195 mg/dL (60-115); Potassium 4.3 mmol/L (3.3-5.1); Sodium 134 mmol/L (135-145)
[2022-07-30 11:29] LABS: Glucose, Whole Blood 166 mg/dL (60-115)
--- NOTE | 2022-07-30 11:35 | HO.PM.IMPN ---
Subjective Subjective Date of Service: 07/30/22 Interval History: Seen and evaluated this morning HR better controlled BP stable Less anxious and more cooperative no other overnight events Review of Systems Review of Systems: Yes all other systems are reviewed and are negative Physical Exam Vital Signs: Vital Signs: Last Vital Signs Temp 97.1 F 07/30/22 10:59 Pulse 63 07/30/22 10:59 Resp 18 07/30/22 10:59 BP 121/78 07/30/22 10:59 Pulse Ox 96 07/30/22 10:59 O2 Del Method Room Air 07/30/22 10:59 O2 Flow Rate 2 07/27/22 22:00 BMI result Body Mass Index 29.6 Const: Other: Constitutional : Awake, interactive, mildly anxious Neck : Normal inspection, Supple Cardiovascular : irregular irregular, no JVP, no lower extremity edema Respiratory : good bilateral air entry, no crackles, wheezes or rhonchi Gastrointestinal: soft, lax, Normal bowel sounds, Non tender Skin : Warm, Dry Neurological : Alert & oriented x2, can get easily confused, No focal deficit Objective Data Active Medications Acetaminophen (Acetaminophen 325 Mg Tablet) 650 mg PO Q6H PRN PRN Reason: Pain, Mild (Pain Scale 1-3) Last Admin: 07/29/22 17:42 Dose: 650 mg Documented By: MARISELA Apixaban (Apixaban 5 Mg Tablet) 5 mg PO BID [facility] Last Admin: 07/30/22 08:05 Dose: 5 mg Documented By: MARISELA Aspirin (Aspirin Enteric Coated 81 Mg Tablet.) 81 mg PO DAILY [facility] Last Admin: 07/30/22 08:03 Dose: 81 mg Documented By: MARISELA Atorvastatin Calcium (Atorvastatin Calcium 20 Mg Tablet) 20 mg PO BEDTIME [facility] Last Admin: 07/29/22 21:38 Dose: 20 mg Documented By: LINDA-NIKAZEB Enalapril Maleate (Enalapril Maleate 5 Mg Tablet) 20 mg PO DAILY [facility]; Protocol Last Admin: 07/29/22 08:49 Dose: 20 mg Documented By: MARISELA Glipizide (Glipizide 5 Mg Tablet) 5 mg PO DAILY [facility] Last Admin: 07/30/22 08:03 Dose: 5 mg Documented By: MARISELA Glucose (Glucose Gel 15 Gm Gel..Gram.) 15 gm PO Q15M PRN; Protocol PRN Reason: per Hypoglycemia Standing Ord. Dextrose (D10) 250 mls @ 750 mls/hr IV Q15M PRN; Protocol PRN Reason: per Hypoglycemia Standing Ord. Insulin Glargine (Insulin Glargine,Hum.Rec.Anlog 100 Unit/Ml 10 Ml Vial) 15 unit SUBCUT BEDTIME [facility] Last Admin: 07/29/22 21:31 Dose: Not Given Documented By: MELE Non-Admin Reason: No Insulin Coverage Insulin Human Lispro (Insulin Lispro 100 Unit/Ml 3 Ml Vial) 0 unit SUBCUT QIDACHS [facility]; Protocol Last Admin: 07/30/22 08:05 Dose: 4 unit Documented By: MARISELA Levothyroxine Sodium (Levothyroxine Sodium 112 Mcg Tablet) 112 mcg PO DAILY@0600 [facility] Last Admin: 07/30/22 05:20 Dose: Not Given Documented By: MELE Non-Admin Reason: Patient Refused Metformin HCl (Metformin Hcl 850 Mg Tablet) 850 mg PO BIDWM [facility] Last Admin: 07/30/22 08:03 Dose: 850 mg Documented By: MARISELA Metoprolol Tartrate (Metoprolol Tartrate 25 Mg Tablet) 25 mg PO BID [facility]; Protocol Last Admin: 07/30/22 08:07 Dose: 25 mg Documented By: MARISELA Multivitamins/Vitamin C (Multivitamin Tablet) 1 tab PO DAILY [facility] Last Admin: 07/30/22 08:05 Dose: 1 tab Documented By: MARISELA Ondansetron HCl (Ondansetron Hcl 4 Mg/2 Ml Vial) 4 mg IVPUSH Q8H PRN PRN Reason: Nausea and Vomiting Quetiapine Fumarate (Quetiapine Fumarate 25 Mg Tablet) 25 mg PO Q8H PRN PRN Reason: anxiety/restlessness Sodium Chloride (0.9 % Sodium Chloride Flush 3 Ml Syringe) 3 ml IVFLUSH QSHIFT [facility] Last Admin: 07/30/22 08:05 Dose: 3 ml Documented By: MARISELA Labs 07/30/22 07:17 07/30/22 07:17 Labs: Laboratory Results - last 24 hr 07/29/22 07/29/22 07/30/22 15:48 19:49 07:17 MCV 87.7 MCH 29.1 MCHC 33.2 RDW 14.6 Plt Count 224 MPV 9.9 Absolute Nucleated RBC 0.000 Nucleated RBC % (auto) 0.0 Anion Gap Estim Creat Clear Calc Estimated GFR POC Glucose 131 H 119 H Random Glucose Calcium 07/30/22 07/30/22 07/30/22 07:17 07:23 10:58 MCV MCH MCHC RDW Plt Count MPV Absolute Nucleated RBC Nucleated RBC % (auto) Anion Gap 15 Estim Creat Clear Calc 46.7 Estimated GFR > 60 POC Glucose 218 H 166 H Random Glucose 195 H Calcium 8.6 Microbiology Microbiology Results: Microbiology 07/27/22 19:52 Blood Culture - Preliminary Blood - Venous No growth after 48 hours. 07/27/22 19:54 Blood Culture - Preliminary Blood - Venous No growth after 48 hours. 07/27/22 Unknown Urine Culture - Final Urine clean catch - Urine castellanos top Assessment and Plan (1) Atrial fibrillation with RVR: Status: Acute (2) Hyperglycemia: Status: Acute (3) Fall: Status: Acute Plan 77-year-old female with hypothyroidism, [id number] type 2 diabetes, hypertension, hyperlipidemia, paroxysmal atrial fibrillation anticoagulated with Eliquis, history of invasive ductal carcinoma of the breast, and history of uterine cancer presentd with mechanical fall, afib with rvr paroxysmal afib with rvr DC cardizem, Continue eliquis, metoprolol cardio input appreciated, decrease Metoprolol to 25mg bid ((patient was on Cardizem same time which DC'd)) Will monitor response on lower dosage but might need to put her back on home dose of 50 bid echo pending chf unspecified not in exacerbation echo pending holding diuretics for now hypotension, resolved give bolus DC Cardizem, hold Enalapril DC Lasix Capacity question evaluated by psych on admission, has no capacity to sign AMA or take medical decesions at this point will need reeval by time of discharge DM with hyperglycemia insulin hypothryoid synthroid hld statin hisotry of breast and uterine cancer outpatinet oncology follow up dvt prophylaxis Eliquis full code patient with afib with rvr, hypotensive, at risk for further decompensation due to advanced age, frailty, dm, therefore, expected to require overnight inpatient pending safe discharge plan. Time Spent With Patient Time: Total time managing care of this patient today ____ minutes. Quality Stroke Does the patient have a stroke diagnosis?: No VTE Prior VTE?: No VTE Risk Level:: Medical - moderate - high VTE Device Contraindication: Treatment Not Indicated VTE Drug Contraindication: N/A - Med Ordered
[2022-07-30 16:35] LABS: Glucose, Whole Blood 172 mg/dL (60-115)
[2022-07-30 20:31] LABS: Glucose, Whole Blood 118 mg/dL (60-115)
[2022-07-30] MEDS: Atorvastatin Calcium 20 MG TABLET PO (21:08)
[2022-07-31] VITALS (8 sets, daily range): BP systolic 128–145; BP diastolic 57–76; PULSE 63–69; RESP 18–20; TEMP 35.6–36.8; O2SAT 94–98
[2022-07-31 07:48] LABS: Glucose, Whole Blood 189 mg/dL (60-115)
[2022-07-31] MEDS: Aspirin Enteric Coated 81 MG TABLET.DR PO (09:00)
[2022-07-31] MEDS: Multivitamin TABLET 1 TAB PO (09:01)
[2022-07-31] MEDS: Metoprolol Tartrate 25 MG TABLET PO ×2 (09:01→22:07)
[2022-07-31] MEDS: Apixaban 5 MG TABLET PO ×2 (09:02→22:07)
[2022-07-31] MEDS: glipiZIDE 5 MG TABLET PO (09:02)
[2022-07-31] MEDS: Insulin Lispro 100 UNIT/ML 3 ML VIAL SUBCUT ×4 (09:06→22:08)
[2022-07-31] MEDS: 0.9 % Sodium Chloride Flush 3 ML SYRINGE IVFLUSH ×3 (09:10→22:09)
--- NOTE | 2022-07-31 10:54 | MHC.CM.PN ---
EMR REVIEWED, PT CURRENTLY CONT'S TO LACK CAPACITY PER LAST PSYCHIATRY NOTE, REFERRAL TO [facility] FAXED ON 07/29 AND CM AWAITING RESPONSE TO DETERMINE IF THEY HAVE SPOKEN TO PT'S DTR/HCP LIAM PEÑA PT WILL NEED MH FOR LTC PLACEMENT LIAM DOES NOT FEEL PT CAN LIVE SAFELY AT HOME ALONE AND HAS NO FAMILY TO TAKE PT IN OR STAY WITH PT, CM WILL CONT TO FOLLOW D/C NEEDS/PLACEMENT.
[2022-07-31 11:51] LABS: Glucose, Whole Blood 257 mg/dL (60-115)
--- NOTE | 2022-07-31 13:05 | P.PNCA_ITS ---
Subjective Subjective Date of Service: 07/31/22 Interval history: Seen examined at bedside. Denying any symptoms. Has dementia. Echocardiography reviewed which showed evidence of severe aortic valve stenosis. Physical Exam Vital Signs: Last Vital Signs Temp 96.8 F 07/31/22 11:11 Pulse 69 07/31/22 11:11 Resp 20 07/31/22 11:11 BP 145/59 H 07/31/22 11:11 Pulse Ox 96 07/31/22 11:11 O2 Del Method Room Air 07/31/22 11:11 O2 Flow Rate 2 07/27/22 22:00 BMI result Body Mass Index 29.6 GENERAL APPEARANCE: in no acute distress, mildly short of breath. SKIN: no suspicious lesions, warm and dry. HEART: no murmurs (auscultation was performed even with breath hold but I still could not appreciate the aortic stenosis murmur in her), irregular rate and rhythm. LUNGS: clear to auscultation bilaterally. Diminished at bases. ABDOMEN: soft, nontender. EXTREMITIES: no edema. Left hand nails have cyanosis. Has situations were checked and were 94% on RA. PERIPHERAL PULSES: equal. NEUROLOGIC: No gross deficits, awake and following simple commands. Objective Labs and Meds 07/30/22 07:17 07/30/22 07:17 Lab results: Laboratory Results - last 24 hr 07/30/22 07/30/22 07/31/22 16:25 20:07 07:40 POC Glucose 172 H 118 H 189 H 07/31/22 11:12 POC Glucose 257 H Progress Note: A&P Assessment and plan (1) Fall: Status: Acute (2) Neurodegenerative cognitive impairment: Status: Acute (3) CHF (congestive heart failure): Status: Acute (4) Aortic stenosis: Status: Acute Plan 77-year-old female with dementia who presented with fall. By history and her description this was mechanical fall. She has been found to have severe aortic stenosis by echocardiography. Interestingly she has no obvious murmur examin ation. Echocardiography also showed that she has a large stool effusion and her right- sided filling pressures are elevated. She has dementia and is denying any significant symptoms. She is not a candidate for any aggressive measures like aortic valve replacement. Given her dementia and current frailty I do not think she will benefit from any aggressive measures. Start Lasix 40 mg IV b.i.d.. Monitor electrolytes closely. She appears mildly short of breath but is denying any significant symptoms. We will follow along with you. Thank you for allowing me to participate in the care of your patient. Please feel free to contact me if you have any questions. Time Spent With Patient Time: Total time managing care of this patient today ____ minutes. Progress Note: Quality Stroke Does the patient have a stroke diagnosis?: No Procedures Date of Service Date of Service: 07/31/22
--- NOTE | 2022-07-31 13:25 | P.PNIM_ITS ---
Subjective Subjective Date of Service: 07/31/22 Interval History: no complaints Physical Exam Vital Signs: Vital Signs: Last Vital Signs Temp 96.8 F 07/31/22 11:11 Pulse 69 07/31/22 11:11 Resp 20 07/31/22 11:11 BP 145/59 H 07/31/22 11:11 Pulse Ox 96 07/31/22 11:11 O2 Del Method Room Air 07/31/22 11:11 O2 Flow Rate 2 07/27/22 22:00 BMI result Body Mass Index 29.6 GENERAL APPEARANCE: in no acute distress, mildly short of breath. SKIN: no suspicious lesions, warm and dry. HEART: no murmurs (auscultation was performed even with breath hold but I still could not appreciate the aortic stenosis murmur in her), irregular rate and rh ythm. LUNGS: clear to auscultation bilaterally. Diminished at bases. ABDOMEN: soft, nontender. EXTREMITIES: no edema. Left hand nails have cyanosis. Has situations were checked and were 94% on RA. PERIPHERAL PULSES: equal. NEUROLOGIC: No gross deficits, awake and following simple commands. Objective Data Active Medications Acetaminophen (Acetaminophen 325 Mg Tablet) 650 mg PO Q6H PRN PRN Reason: Pain, Mild (Pain Scale 1-3) Last Admin: 07/29/22 17:42 Dose: 650 mg Documented By: MARISELA Apixaban (Apixaban 5 Mg Tablet) 5 mg PO BID [facility] Last Admin: 07/31/22 09:02 Dose: 5 mg Documented By: GÓMEZ Aspirin (Aspirin Enteric Coated 81 Mg Tablet.) 81 mg PO DAILY [facility] Last Admin: 07/31/22 09:00 Dose: 81 mg Documented By: GÓMEZ Atorvastatin Calcium (Atorvastatin Calcium 20 Mg Tablet) 20 mg PO BEDTIME [facility] Last Admin: 07/30/22 21:08 Dose: 20 mg Documented By: MELE Enalapril Maleate (Enalapril Maleate 5 Mg Tablet) 20 mg PO DAILY [facility]; Protocol Last Admin: 07/29/22 08:49 Dose: 20 mg Documented By: MARISELA Furosemide (Furosemide 40 Mg/4 Ml Vial) 40 mg IVPUSH BID@0900,1800 [facility]; Protocol Glipizide (Glipizide 5 Mg Tablet) 5 mg PO DAILY [facility] Last Admin: 07/31/22 09:02 Dose: 5 mg Documented By: GÓMEZ Glucose (Glucose Gel 15 Gm Gel..Gram.) 15 gm PO Q15M PRN; Protocol PRN Reason: per Hypoglycemia Standing Ord. Dextrose (D10) 250 mls @ 750 mls/hr IV Q15M PRN; Protocol PRN Reason: per Hypoglycemia Standing Ord. Insulin Glargine (Insulin Glargine,Hum.Rec.Anlog 100 Unit/Ml 10 Ml Vial) 15 unit SUBCUT BEDTIME [facility] Last Admin: 07/30/22 21:01 Dose: Not Given Documented By: MELE Non-Admin Reason: No Insulin Coverage Insulin Human Lispro (Insulin Lispro 100 Unit/Ml 3 Ml Vial) 0 unit SUBCUT QIDACHS [facility]; Protocol Last Admin: 07/31/22 12:58 Dose: 6 unit Documented By: GÓMEZ Levothyroxine Sodium (Levothyroxine Sodium 112 Mcg Tablet) 112 mcg PO DAILY@0600 [facility] Last Admin: 07/31/22 06:37 Dose: Not Given Documented By: MELE Non-Admin Reason: Patient Refused Metformin HCl (Metformin Hcl 850 Mg Tablet) 850 mg PO BIDWM [facility] Last Admin: 07/31/22 11:19 Dose: Not Given Documented By: GÓMEZ Non-Admin Reason: Patient Refused Metoprolol Tartrate (Metoprolol Tartrate 25 Mg Tablet) 25 mg PO BID [facility]; Protocol Last Admin: 07/31/22 09:01 Dose: 25 mg Documented By: GÓMEZ Multivitamins/Vitamin C (Multivitamin Tablet) 1 tab PO DAILY [facility] Last Admin: 07/31/22 09:01 Dose: 1 tab Documented By: GÓMEZ Ondansetron HCl (Ondansetron Hcl 4 Mg/2 Ml Vial) 4 mg IVPUSH Q8H PRN PRN Reason: Nausea and Vomiting Quetiapine Fumarate (Quetiapine Fumarate 25 Mg Tablet) 25 mg PO Q8H PRN PRN Reason: anxiety/restlessness Sodium Chloride (0.9 % Sodium Chloride Flush 3 Ml Syringe) 3 ml IVFLUSH QSHIFT [facility] Last Admin: 07/31/22 09:10 Dose: 3 ml Documented By: GÓMEZ Labs 07/30/22 07:17 07/30/22 07:17 Labs: Laboratory Results - last 24 hr 07/30/22 07/30/22 07/31/22 16:25 20:07 07:40 POC Glucose 172 H 118 H 189 H 07/31/22 11:12 POC Glucose 257 H Assessment and Plan (1) Atrial fibrillation with RVR: Status: Acute (2) Hyperglycemia: Status: Acute (3) Fall: Status: Acute Plan 77-year-old female with hypothyroidism, [id number] type 2 diabetes, hypertension, hyperlipidemia, paroxysmal atrial fibrillation anticoagulated with Eliquis, history of invasive ductal carcinoma of the breast, and history of uterine cancer presentd with mechanical fall, afib with rvr paroxysmal afib with rvr and episodes of yi off cardizem, Continue eliquis, metoprolol cardio input appreciated, decreased Metoprolol to 25mg bid ((patient was on Cardizem same time which DC'd)) severe on echo chronic diastolic chf not in exacerbation echo pending holding diuretics for now hypotension, resolved holding Enalapril Capacity question evaluated by psych on admission, has no capacity to sign AMA or take medical decesions at this point will need reeval by time of discharge DM with hyperglycemia insulin hypothryoid synthroid hld statin hisotry of breast and uterine cancer outpatinet oncology follow up dvt prophylaxis Eliquis full code reason for continued hospitalization:safe dispo Time Spent With Patient Time: Total time managing care of this patient today ____ minutes. Quality Stroke Does the patient have a stroke diagnosis?: No VTE Prior VTE?: No VTE Risk Level:: Medical - moderate - high VTE Device Contraindication: Treatment Not Indicated VTE Drug Contraindication: N/A - Med Ordered
[2022-07-31] MEDS: Furosemide 40 MG/4 ML VIAL IVPUSH (15:07)
[2022-07-31 16:54] LABS: Glucose, Whole Blood 301 mg/dL (60-115)
[2022-07-31 21:13] LABS: Glucose, Whole Blood 217 mg/dL (60-115)
[2022-07-31] MEDS: Atorvastatin Calcium 20 MG TABLET PO (22:07)
[2022-07-31] MEDS: Insulin Glargine,Hum.rec.anlog 100 UNIT/ML 10 ML VIAL 15 UNIT SUBCUT (22:07)
[2022-08-01] VITALS (7 sets, daily range): BP systolic 114–148; BP diastolic 56–70; PULSE 62–103; RESP 16–20; TEMP 36.1–37.1; O2SAT 92–99
[2022-08-01] MEDS: Levothyroxine Sodium 112 MCG TABLET PO (06:06)
[2022-08-01 07:30] LABS: Glucose, Whole Blood 190 mg/dL (60-115)
[2022-08-01] MEDS: Furosemide 40 MG/4 ML VIAL IVPUSH ×2 (08:26→17:19)
[2022-08-01] MEDS: Metoprolol Tartrate 25 MG TABLET PO (08:26)
[2022-08-01] MEDS: Aspirin Enteric Coated 81 MG TABLET.DR PO (08:26)
[2022-08-01] MEDS: Multivitamin TABLET 1 TAB PO (08:26)
[2022-08-01] MEDS: Insulin Lispro 100 UNIT/ML 3 ML VIAL SUBCUT ×4 (08:26→21:07)
[2022-08-01] MEDS: Apixaban 5 MG TABLET PO ×2 (08:26→21:07)
[2022-08-01] MEDS: 0.9 % Sodium Chloride Flush 3 ML SYRINGE IVFLUSH ×3 (08:26→21:07)
[2022-08-01] MEDS: glipiZIDE 5 MG TABLET PO (08:26)
[2022-08-01] MEDS: metFORMIN HCl 850 MG TABLET PO (08:26)
--- NOTE | 2022-08-01 10:13 | PM.PNCARD ---
Subjective Subjective Date of Service: 08/01/22 Interval history: Seen examined at bedside. Telemetry is showing AFib with RVR. Denying any significant symptoms today. She was short of breath yesterday but looks better after IV diuretics. Physical Exam Vital Signs: Last Vital Signs Temp 98.1 F 08/01/22 07:15 Pulse 103 H 08/01/22 09:44 Resp 16 08/01/22 07:15 BP 148/70 H 08/01/22 09:44 Pulse Ox 92 08/01/22 09:44 O2 Del Method Room Air 08/01/22 07:15 O2 Flow Rate 2 07/27/22 22:00 BMI result Body Mass Index 29.6 GENERAL APPEARANCE: in no acute distress SKIN: no suspicious lesions, warm and dry. HEART: no murmurs (auscultation was performed even with breath hold but I still could not appreciate the aortic stenosis murmur in her), irregular rate and rhythm. LUNGS: clear to auscultation bilaterally. Diminished at bases. ABDOMEN: soft, nontender. EXTREMITIES: Positive edema. PERIPHERAL PULSES: equal. NEUROLOGIC: No gross deficits, awake and following simple commands. Objective Labs and Meds 07/30/22 07:17 07/30/22 07:17 Lab results: Laboratory Results - last 24 hr 07/31/22 07/31/22 07/31/22 11:12 16:45 21:08 POC Glucose 257 H 301 H 217 H 08/01/22 07:14 POC Glucose 190 H Progress Note: A&P Assessment and plan (1) Aortic stenosis: Status: Acute (2) Fall: Status: Acute (3) CHF (congestive heart failure): Status: Acute Plan 77-year-old female with mechanical fall was been diagnosed with severe aortic valve stenosis. She has advanced dementia and frailty and is not a candidate for aortic valve replacement currently. Volume overloaded. Continue Lasix IV. In AFib with RVR. Can be increased back to her home dose of metoprolol 50 mg twice a day. If she is still does not slow down then we can try loading with digoxin. Definitely better than yesterday with her breathing. Continue IV diuretics. Had a detailed discussion with daughter yesterday that Princess is not a candidate for any aggressive interventions right now. She will discuss with Case Management about placement and palliative care. Thank you for allowing me to participate in the care of your patient. Please feel free to contact me if you have any questions. Time Spent With Patient Time: Total time managing care of this patient today ____ minutes. Progress Note: Quality Stroke Does the patient have a stroke diagnosis?: No Procedures Date of Service Date of Service: 08/01/22
--- NOTE | 2022-08-01 10:29 | P.PNIM_ITS ---
Subjective Subjective Date of Service: 08/01/22 Interval History: sob Physical Exam Vital Signs: Vital Signs: Last Vital Signs Temp 98.1 F 08/01/22 07:15 Pulse 103 H 08/01/22 09:44 Resp 16 08/01/22 07:15 BP 148/70 H 08/01/22 09:44 Pulse Ox 92 08/01/22 09:44 O2 Del Method Room Air 08/01/22 07:15 O2 Flow Rate 2 07/27/22 22:00 BMI result Body Mass Index 29.6 GENERAL APPEARANCE: in no acute distress SKIN: no suspicious lesions, warm and dry. HEART: no murmurs (auscultation was performed even with breath hold but I still could not appreciate the aortic stenosis murmur in her), irregular rate and rhythm. LUNGS: clear to auscultation bilaterally. Diminished at bases. ABDOMEN: soft, nontender. EXTREMITIES: Positive edema. PERIPHERAL PULSES: equal. NEUROLOGIC: No gross deficits, awake and following simple commands. Objective Data Active Medications Acetaminophen (Acetaminophen 325 Mg Tablet) 650 mg PO Q6H PRN PRN Reason: Pain, Mild (Pain Scale 1-3) Last Admin: 07/29/22 17:42 Dose: 650 mg Documented By: MARISELA Apixaban (Apixaban 5 Mg Tablet) 5 mg PO BID [facility] Last Admin: 08/01/22 08:26 Dose: 5 mg Documented By: GENIE Aspirin (Aspirin Enteric Coated 81 Mg Tablet.) 81 mg PO DAILY [facility] Last Admin: 08/01/22 08:26 Dose: 81 mg Documented By: GENIE Atorvastatin Calcium (Atorvastatin Calcium 20 Mg Tablet) 20 mg PO BEDTIME [facility] Last Admin: 07/31/22 22:07 Dose: 20 mg Documented By: MALENA Enalapril Maleate (Enalapril Maleate 5 Mg Tablet) 20 mg PO DAILY [facility]; Protocol Last Admin: 07/29/22 08:49 Dose: 20 mg Documented By: MARISELA Furosemide (Furosemide 40 Mg/4 Ml Vial) 40 mg IVPUSH BID@0900,1800 [facility]; Protocol Last Admin: 08/01/22 08:26 Dose: 40 mg Documented By: GENIE Glipizide (Glipizide 5 Mg Tablet) 5 mg PO DAILY [facility] Last Admin: 08/01/22 08:26 Dose: 5 mg Documented By: GENIE Glucose (Glucose Gel 15 Gm Gel..Gram.) 15 gm PO Q15M PRN; Protocol PRN Reason: per Hypoglycemia Standing Ord. Dextrose (D10) 250 mls @ 750 mls/hr IV Q15M PRN; Protocol PRN Reason: per Hypoglycemia Standing Ord. Insulin Glargine (Insulin Glargine,Hum.Rec.Anlog 100 Unit/Ml 10 Ml Vial) 15 unit SUBCUT BEDTIME [facility] Last Admin: 07/31/22 22:07 Dose: 15 unit Documented By: MALENA Insulin Human Lispro (Insulin Lispro 100 Unit/Ml 3 Ml Vial) 0 unit SUBCUT QIDACHS [facility]; Protocol Last Admin: 08/01/22 08:26 Dose: 2 unit Documented By: GENIE Levothyroxine Sodium (Levothyroxine Sodium 112 Mcg Tablet) 112 mcg PO DAILY@0600 [facility] Last Admin: 08/01/22 06:06 Dose: 112 mcg Documented By: MALENA Metformin HCl (Metformin Hcl 850 Mg Tablet) 850 mg PO BIDWM [facility] Last Admin: 08/01/22 08:26 Dose: 850 mg Documented By: GENIE Metoprolol Tartrate (Metoprolol Tartrate 50 Mg Tablet) 50 mg PO BID [facility]; Protocol Multivitamins/Vitamin C (Multivitamin Tablet) 1 tab PO DAILY [facility] Last Admin: 08/01/22 08:26 Dose: 1 tab Documented By: GENIE Ondansetron HCl (Ondansetron Hcl 4 Mg/2 Ml Vial) 4 mg IVPUSH Q8H PRN PRN Reason: Nausea and Vomiting Quetiapine Fumarate (Quetiapine Fumarate 25 Mg Tablet) 25 mg PO Q8H PRN PRN Reason: anxiety/restlessness Sodium Chloride (0.9 % Sodium Chloride Flush 3 Ml Syringe) [facility] Last Admin: 08/01/22 08:26 Dose: 3 ml Documented By: GENIE Labs 07/30/22 07:17 07/30/22 07:17 Labs: Laboratory Results - last 24 hr 07/31/22 07/31/22 07/31/22 11:12 16:45 21:08 POC Glucose 257 H 301 H 217 H 08/01/22 07:14 POC Glucose 190 H Assessment and Plan (1) Atrial fibrillation with RVR: Status: Acute (2) Hyperglycemia: Status: Acute (3) Fall: Status: Acute Plan 77-year-old female with hypothyroidism, lim-reynumj-rxmfjfkwj type 2 diabetes, hypertension, hyperlipidemia, paroxysmal atrial fibrillation anticoagulated with Eliquis, history of invasive ductal carcinoma of the breast, and history of uterine cancer presentd with mechanical fall, afib with rvr paroxysmal afib with rvr and episodes of yi Continue eliquis, metoprolol increased back up to 50mg bid, monitor for yi severe on echo acute on chronic diastolic chf iv lasix hypotension, resolved holding Enalapril Capacity question evaluated by psych on admission, has no capacity to sign AMA or take medical decesions at this point will need reeval by time of discharge DM with hyperglycemia insulin hypothryoid synthroid hld statin hisotry of breast and uterine cancer outpatinet oncology follow up dvt prophylaxis Eliquis full code reason for continued hospitalization: rate control, iv diuresis Time Spent With Patient Time: Total time managing care of this patient today ____ minutes. Quality Stroke Does the patient have a stroke diagnosis?: No VTE Prior VTE?: No VTE Risk Level:: Medical - moderate - high VTE Device Contraindication: Treatment Not Indicated VTE Drug Contraindication: N/A - Med Ordered
[2022-08-01 11:11] LABS: Glucose, Whole Blood 180 mg/dL (60-115)
[2022-08-01] MEDS: Acetaminophen 325 MG TABLET 650 MG PO (11:51)
--- NOTE | 2022-08-01 12:42 | MHC.CM.PN ---
PT'S DAUGHTER/ [employer]ANCIAL SERVICES IN TO BEGIN WORKING ON [facility]. CM WILL CONTINUE TO FOLLOW
[2022-08-01 16:15] LABS: Glucose, Whole Blood 155 mg/dL (60-115)
[2022-08-01 19:39] LABS: Glucose, Whole Blood 191 mg/dL (60-115)
[2022-08-01] MEDS: Metoprolol Tartrate 50 MG TABLET PO (21:07)
[2022-08-01] MEDS: Atorvastatin Calcium 20 MG TABLET PO (21:07)
[2022-08-01] MEDS: Insulin Glargine,Hum.rec.anlog 100 UNIT/ML 10 ML VIAL 15 UNIT SUBCUT (21:07)
[2022-08-02] VITALS (7 sets, daily range): BP systolic 123–149; BP diastolic 56–85; PULSE 65–123; RESP 16–20; TEMP 36.1–37.1; O2SAT 95–98
[2022-08-02 05:23] LABS: Hematocrit 44.8 % (37.0-47.0); Mean Corpuscular HGB Conc 33.5 g/dl (31.0-35.0); Mean Corpuscular Hemoglobin 29.1 pg (27.0-33.0); Mean Platelet Volume 9.6 fL (9.4-12.3); Platelet Count 249 X10*3/uL (160-400); Red Blood Count 5.15 X10*6/uL (4.20-5.50); Red Cell Distribution Width 14.4 % (11.0-16.0); White Blood Count 10.5 X10*3/uL (4.8-10.8)
[2022-08-02 05:30] LABS: Anion Gap 12 (12-20); Blood Urea Nitrogen 24 mg/dL (9-16); Calcium 8.3 mg/dL (8.4-10.2); Carbon Dioxide 33 mmol/L (22-29); Chloride 95 mmol/L (96-108); Creatinine Clr Calc Pharmacy 45.6; Estimated Glomerular Filt Rate > 60; Glucose Fasting 216 mg/dL (60-99); Potassium 3.9 mmol/L (3.3-5.1); Sodium 136 mmol/L (135-145)
[2022-08-02] MEDS: Levothyroxine Sodium 112 MCG TABLET PO (05:49)
[2022-08-02 07:34] LABS: Glucose, Whole Blood 195 mg/dL (60-115)
[2022-08-02] MEDS: Furosemide 40 MG/4 ML VIAL IVPUSH ×2 (08:15→17:10)
[2022-08-02] MEDS: metFORMIN HCl 850 MG TABLET PO ×2 (08:16→17:10)
[2022-08-02] MEDS: glipiZIDE 5 MG TABLET PO (08:16)
[2022-08-02] MEDS: Insulin Lispro 100 UNIT/ML 3 ML VIAL SUBCUT ×3 (08:16→21:36)
[2022-08-02] MEDS: Apixaban 5 MG TABLET PO ×2 (08:16→21:35)
[2022-08-02] MEDS: Aspirin Enteric Coated 81 MG TABLET.DR PO (08:16)
[2022-08-02] MEDS: Metoprolol Tartrate 50 MG TABLET PO ×2 (08:16→21:35)
[2022-08-02] MEDS: 0.9 % Sodium Chloride Flush 3 ML SYRINGE IVFLUSH ×3 (08:17→21:37)
--- NOTE | 2022-08-02 09:51 | P.PNIM_ITS ---
Subjective Subjective Date of Service: 08/02/22 Interval History: asymptomatic Physical Exam Vital Signs: Vital Signs: Last Vital Signs Temp 98.7 F 08/02/22 07:17 Pulse 108 H 08/02/22 09:29 Resp 16 08/02/22 07:17 BP 148/85 H 08/02/22 09:29 Pulse Ox 95 08/02/22 09:29 O2 Del Method Room Air 08/02/22 07:17 O2 Flow Rate 2 07/27/22 22:00 BMI result Body Mass Index 29.6 GENERAL APPEARANCE: in no acute distress SKIN: no suspicious lesions, warm and dry. LUNGS: clear to auscultation bilaterally. Diminished at bases. ABDOMEN: soft, nontender. EXTREMITIES: Positive edema. PERIPHERAL PULSES: equal. NEUROLOGIC: No gross deficits, awake and following simple commands. Objective Data Active Medications Acetaminophen (Acetaminophen 325 Mg Tablet) 650 mg PO Q6H PRN PRN Reason: Pain, Mild (Pain Scale 1-3) Last Admin: 08/01/22 11:51 Dose: 650 mg Documented By: GENIE Apixaban (Apixaban 5 Mg Tablet) 5 mg PO BID [facility] Last Admin: 08/02/22 08:16 Dose: 5 mg Documented By: GENIE Aspirin (Aspirin Enteric Coated 81 Mg Tablet.) 81 mg PO DAILY [facility] Last Admin: 08/02/22 08:16 Dose: 81 mg Documented By: GENIE Atorvastatin Calcium (Atorvastatin Calcium 20 Mg Tablet) 20 mg PO BEDTIME [facility] Last Admin: 08/01/22 21:07 Dose: 20 mg Documented By: MARCUS Enalapril Maleate (Enalapril Maleate 5 Mg Tablet) 20 mg PO DAILY [facility]; Protocol Last Admin: 07/29/22 08:49 Dose: 20 mg Documented By: MARISELA Furosemide (Furosemide 40 Mg/4 Ml Vial) 40 mg IVPUSH BID@0900,1800 [facility]; Protocol Last Admin: 08/02/22 08:15 Dose: 40 mg Documented By: GENIE Glipizide (Glipizide 5 Mg Tablet) 5 mg PO DAILY [facility] Last Admin: 08/02/22 08:16 Dose: 5 mg Documented By: GENIE Glucose (Glucose Gel 15 Gm Gel..Gram.) 15 gm PO Q15M PRN; Protocol PRN Reason: per Hypoglycemia Standing Ord. Dextrose (D10) 250 mls @ 750 mls/hr IV Q15M PRN; Protocol PRN Reason: per Hypoglycemia Standing Ord. Insulin Glargine (Insulin Glargine,Hum.Rec.Anlog 100 Unit/Ml 10 Ml Vial) 15 unit SUBCUT BEDTIME [facility] Last Admin: 08/01/22 21:07 Dose: 15 unit Documented By: MARCUS Insulin Human Lispro (Insulin Lispro 100 Unit/Ml 3 Ml Vial) 0 unit SUBCUT QIDACHS [facility]; Protocol Last Admin: 08/02/22 08:16 Dose: 2 unit Documented By: GENIE Levothyroxine Sodium (Levothyroxine Sodium 112 Mcg Tablet) 112 mcg PO DAILY@0600 [facility] Last Admin: 08/02/22 05:49 Dose: 112 mcg Documented By: MARCUS Metformin HCl (Metformin Hcl 850 Mg Tablet) 850 mg PO BIDWM [facility] Last Admin: 08/02/22 08:16 Dose: 850 mg Documented By: GENIE Metoprolol Tartrate (Metoprolol Tartrate 50 Mg Tablet) 50 mg PO BID [facility]; Protocol Last Admin: 08/02/22 08:16 Dose: 50 mg Documented By: GENIE Multivitamins/Vitamin C (Multivitamin Tablet) 1 tab PO DAILY [facility] Last Admin: 08/02/22 08:37 Dose: Not Given Documented By: GENIE Non-Admin Reason: Patient Refused Ondansetron HCl (Ondansetron Hcl 4 Mg/2 Ml Vial) 4 mg IVPUSH Q8H PRN PRN Reason: Nausea and Vomiting Quetiapine Fumarate (Quetiapine Fumarate 25 Mg Tablet) 25 mg PO Q8H PRN PRN Reason: anxiety/restlessness Sodium Chloride (0.9 % Sodium Chloride Flush 3 Ml Syringe) 3 ml IVFLUSH QSHIFT [facility] Last Admin: 08/02/22 08:17 Dose: 3 ml Documented By: GENIE Labs 08/02/22 05:07 08/02/22 05:07 Labs: Laboratory Results - last 24 hr 08/01/22 08/01/22 08/01/22 11:02 16:12 19:36 MCV MCH MCHC RDW Plt Count MPV Absolute Nucleated RBC Nucleated RBC % (auto) Anion Gap Estim Creat Clear Calc Estimated GFR POC Glucose 180 H 155 H 191 H Fasting Glucose Calcium 08/02/22 08/02/22 08/02/22 05:07 05:07 07:16 MCV 87.0 MCH 29.1 MCHC 33.5 RDW 14.4 Plt Count 249 MPV 9.6 Absolute Nucleated RBC 0.000 Nucleated RBC % (auto) 0.0 Anion Gap 12 Estim Creat Clear Calc 45.6 Estimated GFR > 60 POC Glucose 195 H Fasting Glucose 216 H Calcium 8.3 L Microbiology Microbiology Results: Microbiology 07/27/22 19:52 Blood Culture - Final Blood - Venous No growth after 5 days. 07/27/22 19:54 Blood Culture - Final Blood - Venous No growth after 5 days. Assessment and Plan (1) Atrial fibrillation with RVR: Status: Acute (2) Hyperglycemia: Status: Acute (3) Fall: Status: Acute Plan 77-year-old female with hypothyroidism, wan-zpplwlw-svnuqzcos type 2 diabetes, hypertension, hyperlipidemia, paroxysmal atrial fibrillation anticoagulated with Eliquis, history of invasive ductal carcinoma of the breast, and history of uterine cancer presentd with mechanical fall, afib with rvr paroxysmal afib with rvr and episodes of yi Continue eliquis, metoprolol increased back up to 50mg bid, monitor for yi severe on echo continues to be tachy acute on chronic diastolic chf iv lasix hypotension, resolved holding Enalapril Capacity question evaluated by psych on admission, has no capacity to sign AMA or take medical decesions at this point will need reeval by time of discharge DM with hyperglycemia insulin hypothryoid synthroid hld statin hisotry of breast and uterine cancer outpatinet oncology follow up dvt prophylaxis Eliquis full code reason for continued hospitalization: rate control, iv diuresis Time Spent With Patient Time: Total time managing care of this patient today ____ minutes. Quality Stroke Does the patient have a stroke diagnosis?: No VTE Prior VTE?: No VTE Risk Level:: Medical - moderate - high VTE Device Contraindication: Treatment Not Indicated VTE Drug Contraindication: N/A - Med Ordered
--- NOTE | 2022-08-02 11:00 | MHC.CM.PN ---
EMR REVIEWED, PER HOSPITALIST PT REMAINS IN RAPID AFIB AND NOT READY FOR D/C, PER PREVIOUS CM NOTES PT'S DTR CAME IN 08/01 TO MEET W/FS TO START [facility] FOR LTC, CM WILL CONT FOLLOW D/C NEEDS.
[2022-08-02 11:20] LABS: Glucose, Whole Blood 184 mg/dL (60-115)
--- NOTE | 2022-08-02 14:50 | PM.PNCARD ---
Subjective Subjective Date of Service: 08/02/22 Interval history: Seen and examined at bedside Wants to go home. Still volume overloaded. Physical Exam Vital Signs: Last Vital Signs Temp 98.4 F 08/02/22 11:09 Pulse 73 08/02/22 11:09 Resp 16 08/02/22 11:09 BP 123/56 L 08/02/22 11:09 Pulse Ox 96 08/02/22 11:09 O2 Del Method Room Air 08/02/22 11:09 O2 Flow Rate 2 07/27/22 22:00 BMI result Body Mass Index 29.6 GENERAL APPEARANCE: in no acute distress SKIN: no suspicious lesions, warm and dry. HEART: no murmurs (auscultation was performed even with breath hold but I still could not appreciate the aortic stenosis murmur in her), irregular rate and rhythm. + JVD LUNGS: clear to auscultation bilaterally. Diminished at bases. ABDOMEN: soft, nontender. EXTREMITIES: Positive edema. PERIPHERAL PULSES: equal. NEUROLOGIC: No gross deficits, awake and following simple commands. Objective Labs and Meds 08/02/22 05:07 08/02/22 05:07 Lab results: Laboratory Results - last 24 hr 08/01/22 08/01/22 08/02/22 16:12 19:36 05:07 WBC 10.5 RBC 5.15 Hgb 15.0 Hct 44.8 MCV 87.0 MCH 29.1 MCHC 33.5 RDW 14.4 Plt Count 249 MPV 9.6 Absolute Nucleated RBC 0.000 Nucleated RBC % (auto) 0.0 Sodium Potassium Chloride Carbon Dioxide Anion Gap BUN Creatinine Estim Creat Clear Calc Estimated GFR POC Glucose 155 H 191 H Fasting Glucose Calcium 08/02/22 08/02/22 08/02/22 05:07 07:16 11:08 WBC RBC Hgb Hct MCV MCH MCHC RDW Plt Count MPV Absolute Nucleated RBC Nucleated RBC % (auto) Sodium 136 Potassium 3.9 Chloride 95 L Carbon Dioxide 33 H Anion Gap 12 BUN 24 H Creatinine 0.88 Estim Creat Clear Calc 45.6 Estimated GFR > 60 POC Glucose 195 H 184 H Fasting Glucose 216 H Calcium 8.3 L Progress Note: A&P Assessment and plan (1) Aortic stenosis: Status: Acute (2) Fall: Status: Acute (3) CHF (congestive heart failure): Status: Acute Plan 77-year-old female with mechanical fall was been diagnosed with severe aortic valve stenosis. She has advanced dementia and frailty and is not a candidate for aortic valve replacement currently. Volume overloaded. Afib better rate control. Still overloaded but wants to go home. I think she should leave with 40 mg PO BID Lasix when ready for DC. Had a detailed discussion with daughter that Princess is not a candidate for any aggressive interventions right now. She will discuss with Case Management about placement and palliative care. Thank you for allowing me to participate in the care of your patient. Please feel free to contact me if you have any questions. Time Spent With Patient Time: Total time managing care of this patient today ____ minutes. Progress Note: Quality Stroke Does the patient have a stroke diagnosis?: No Procedures Date of Service Date of Service: 08/02/22
[2022-08-02 16:00] LABS: Glucose, Whole Blood 97 mg/dL (60-115)
[2022-08-02 20:43] LABS: Glucose, Whole Blood 188 mg/dL (60-115)
[2022-08-02] MEDS: Atorvastatin Calcium 20 MG TABLET PO (21:35)
[2022-08-02] MEDS: Insulin Glargine,Hum.rec.anlog 100 UNIT/ML 10 ML VIAL 15 UNIT SUBCUT (21:36)
[2022-08-03] VITALS (7 sets, daily range): BP systolic 113–159; BP diastolic 57–79; PULSE 65–102; RESP 16–20; TEMP 36.1–37; O2SAT 95–98
[2022-08-03] MEDS: Levothyroxine Sodium 112 MCG TABLET PO (06:01)
[2022-08-03 06:37] LABS: Hematocrit 46.2 % (37.0-47.0); Hemoglobin 15.3 g/dl (12.0-16.0); Mean Corpuscular HGB Conc 33.1 g/dl (31.0-35.0); Mean Corpuscular Hemoglobin 28.7 pg (27.0-33.0); Mean Corpuscular Volume 86.5 fL (80.0-98.0); Mean Platelet Volume 9.4 fL (9.4-12.3); Platelet Count 247 X10*3/uL (160-400); Red Blood Count 5.34 X10*6/uL (4.20-5.50); Red Cell Distribution Width 14.3 % (11.0-16.0)
[2022-08-03 06:47] LABS: Anion Gap 10 (12-20); Blood Urea Nitrogen 23 mg/dL (9-16); Calcium 8.3 mg/dL (8.4-10.2); Carbon Dioxide 37 mmol/L (22-29); Chloride 94 mmol/L (96-108); Creatinine Clr Calc Pharmacy 50.2; Estimated Glomerular Filt Rate > 60; Glucose Fasting 109 mg/dL (60-99); Potassium 3.4 mmol/L (3.3-5.1); Sodium 138 mmol/L (135-145)
[2022-08-03 07:50] LABS: Glucose, Whole Blood 141 mg/dL (60-115)
--- NOTE | 2022-08-03 09:42 | HO.PM.IMPN ---
Subjective Subjective Date of Service: 08/03/22 Interval History: asymptomatic Physical Exam Vital Signs: Vital Signs: Last Vital Signs Temp 98.6 F 08/03/22 07:54 Pulse 102 H 08/03/22 07:54 Resp 16 08/03/22 07:54 BP 159/72 H 08/03/22 07:54 Pulse Ox 96 08/03/22 07:54 O2 Del Method Room Air 08/03/22 07:54 O2 Flow Rate 2 07/27/22 22:00 BMI result Body Mass Index 29.6 GENERAL APPEARANCE: in no acute distress SKIN: no suspicious lesions, warm and dry. HEART: no murmurs (auscultation was performed even with breath hold but I still could not appreciate the aortic stenosis murmur in her), irregular rate and rhythm. + JVD LUNGS: clear to auscultation bilaterally. Diminished at bases. ABDOMEN: soft, nontender. EXTREMITIES: Positive edema. PERIPHERAL PULSES: equal. NEUROLOGIC: No gross deficits, awake and following simple commands. Objective Data Active Medications Acetaminophen (Acetaminophen 325 Mg Tablet) 650 mg PO Q6H PRN PRN Reason: Pain, Mild (Pain Scale 1-3) Last Admin: 08/01/22 11:51 Dose: 650 mg Documented By: GENIE Apixaban (Apixaban 5 Mg Tablet) 5 mg PO BID [facility] Last Admin: 08/02/22 21:35 Dose: 5 mg Documented By: MARK Aspirin (Aspirin Enteric Coated 81 Mg Tablet.) 81 mg PO DAILY [facility] Last Admin: 08/02/22 08:16 Dose: 81 mg Documented By: GENIE Atorvastatin Calcium (Atorvastatin Calcium 20 Mg Tablet) 20 mg PO BEDTIME [facility] Last Admin: 08/02/22 21:35 Dose: 20 mg Documented By: MARK Enalapril Maleate (Enalapril Maleate 5 Mg Tablet) 20 mg PO DAILY [facility]; Protocol Last Admin: 07/29/22 08:49 Dose: 20 mg Documented By: MARISELA Furosemide (Furosemide 40 Mg/4 Ml Vial) 40 mg IVPUSH BID@0900,1800 [facility]; Protocol Last Admin: 08/02/22 17:10 Dose: 40 mg Documented By: GENIE Glipizide (Glipizide 5 Mg Tablet) 5 mg PO DAILY [facility] Last Admin: 08/02/22 08:16 Dose: 5 mg Documented By: GENIE Glucose (Glucose Gel 15 Gm Gel..Gram.) 15 gm PO Q15M PRN; Protocol PRN Reason: per Hypoglycemia Standing Ord. Dextrose (D10) 250 mls @ 750 mls/hr IV Q15M PRN; Protocol PRN Reason: per Hypoglycemia Standing Ord. Insulin Glargine (Insulin Glargine,Hum.Rec.Anlog 100 Unit/Ml 10 Ml Vial) 15 unit SUBCUT BEDTIME [facility] Last Admin: 08/02/22 21:36 Dose: 15 unit Documented By: MARK Insulin Human Lispro (Insulin Lispro 100 Unit/Ml 3 Ml Vial) 0 unit SUBCUT QIDACHS [facility]; Protocol Last Admin: 08/03/22 09:04 Dose: Not Given Documented By: JB Non-Admin Reason: No Access Levothyroxine Sodium (Levothyroxine Sodium 112 Mcg Tablet) 112 mcg PO DAILY@0600 [facility] Last Admin: 08/03/22 06:01 Dose: 112 mcg Documented By: MARK Metformin HCl (Metformin Hcl 850 Mg Tablet) 850 mg PO BIDWM [facility] Last Admin: 08/02/22 17:10 Dose: 850 mg Documented By: GENIE Metoprolol Tartrate (Metoprolol Tartrate 50 Mg Tablet) 50 mg PO BID [facility]; Protocol Last Admin: 08/02/22 21:35 Dose: 50 mg Documented By: MARK Multivitamins/Vitamin C (Multivitamin Tablet) 1 tab PO DAILY [facility] Last Admin: 08/02/22 08:37 Dose: Not Given Documented By: GENIE Non-Admin Reason: Patient Refused Ondansetron HCl (Ondansetron Hcl 4 Mg/2 Ml Vial) 4 mg IVPUSH Q8H PRN PRN Reason: Nausea and Vomiting Quetiapine Fumarate (Quetiapine Fumarate 25 Mg Tablet) 25 mg PO Q8H PRN PRN Reason: anxiety/restlessness Sodium Chloride (0.9 % Sodium Chloride Flush 3 Ml Syringe) 3 ml IVFLUSH QSHIFT [facility] Last Admin: 08/02/22 21:37 Dose: 3 ml Documented By: MARK Labs 08/03/22 06:13 08/03/22 06:13 Labs: Laboratory Results - last 24 hr 08/02/22 08/02/22 08/02/22 11:08 15:56 20:39 MCV MCH MCHC RDW Plt Count MPV Absolute Nucleated RBC Nucleated RBC % (auto) Anion Gap Estim Creat Clear Calc Estimated GFR POC Glucose 184 H 97 188 H Fasting Glucose Calcium 08/03/22 08/03/22 08/03/22 06:13 06:13 07:43 MCV 86.5 MCH 28.7 MCHC 33.1 RDW 14.3 Plt Count 247 MPV 9.4 Absolute Nucleated RBC 0.000 Nucleated RBC % (auto) 0.0 Anion Gap 10 L Estim Creat Clear Calc 50.2 Estimated GFR > 60 POC Glucose 141 H Fasting Glucose 109 H Calcium 8.3 L Assessment and Plan (1) Atrial fibrillation with RVR: Status: Acute (2) Hyperglycemia: Status: Acute (3) Fall: Status: Acute Plan 77-year-old female with hypothyroidism, [id number] type 2 diabetes, hypertension, hyperlipidemia, paroxysmal atrial fibrillation anticoagulated with Eliquis, history of invasive ductal carcinoma of the breast, and history of uterine cancer presentd with mechanical fall, afib with rvr paroxysmal afib with rvr and episodes of yi Continue eliquis, metoprolol increased back up to 50mg bid, monitor for yi severe on echo heart rate better controlled today acute on chronic diastolic chf iv lasix hypotension, resolved holding Enalapril Capacity question evaluated by psych on admission, has no capacity to sign AMA or take medical decesions at this point will need reeval by time of discharge DM with hyperglycemia insulin hypothryoid synthroid hld statin hisotry of breast and uterine cancer outpatinet oncology follow up dvt prophylaxis Eliquis full code reason for continued hospitalization: rate control, iv diuresis Time Spent With Patient Time: Total time managing care of this patient today ____ minutes. Quality Stroke Does the patient have a stroke diagnosis?: No VTE Prior VTE?: No VTE Risk Level:: Medical - moderate - high VTE Device Contraindication: Treatment Not Indicated VTE Drug Contraindication: N/A - Med Ordered
[2022-08-03] MEDS: Aspirin Enteric Coated 81 MG TABLET.DR PO (09:48)
[2022-08-03] MEDS: Metoprolol Tartrate 50 MG TABLET PO ×2 (09:49→20:31)
[2022-08-03] MEDS: Multivitamin TABLET 1 TAB PO (09:49)
[2022-08-03] MEDS: 0.9 % Sodium Chloride Flush 3 ML SYRINGE IVFLUSH ×3 (09:49→23:23)
[2022-08-03] MEDS: metFORMIN HCl 850 MG TABLET PO ×2 (09:49→18:05)
[2022-08-03] MEDS: Apixaban 5 MG TABLET PO ×2 (09:49→20:31)
[2022-08-03] MEDS: glipiZIDE 5 MG TABLET PO (09:49)
[2022-08-03] MEDS: Furosemide 40 MG/4 ML VIAL IVPUSH ×2 (09:49→18:05)
[2022-08-03 11:17] LABS: Glucose, Whole Blood 187 mg/dL (60-115)
[2022-08-03] MEDS: Insulin Lispro 100 UNIT/ML 3 ML VIAL SUBCUT (12:13)
[2022-08-03 16:19] LABS: Glucose, Whole Blood 78 mg/dL (60-115)
[2022-08-03 19:45] LABS: Glucose, Whole Blood 128 mg/dL (60-115)
[2022-08-03] MEDS: Atorvastatin Calcium 20 MG TABLET PO (20:31)
[2022-08-03] MEDS: Insulin Glargine,Hum.rec.anlog 100 UNIT/ML 10 ML VIAL 15 UNIT SUBCUT (20:32)
[2022-08-04 03:15] VITALS: BP 136/64; PULSE 73; RESP 16; TEMP 36.4; O2SAT 93
[2022-08-04] MEDS: Levothyroxine Sodium 112 MCG TABLET PO (05:48)
[2022-08-04 06:28] LABS: Hematocrit 44.6 % (37.0-47.0); Hemoglobin 14.6 g/dl (12.0-16.0); Mean Corpuscular HGB Conc 32.7 g/dl (31.0-35.0); Mean Corpuscular Hemoglobin 28.2 pg (27.0-33.0); Mean Corpuscular Volume 86.3 fL (80.0-98.0); Mean Platelet Volume 9.4 fL (9.4-12.3); Platelet Count 236 X10*3/uL (160-400); Red Blood Count 5.17 X10*6/uL (4.20-5.50); Red Cell Distribution Width 14.2 % (11.0-16.0); White Blood Count 13.1 X10*3/uL (4.8-10.8)
[2022-08-04 06:55] LABS: Anion Gap 15 (12-20); Blood Urea Nitrogen 23 mg/dL (9-16); Calcium 8.4 mg/dL (8.4-10.2); Carbon Dioxide 34 mmol/L (22-29); Chloride 92 mmol/L (96-108); Creatinine Clr Calc Pharmacy 52.8; Estimated Glomerular Filt Rate > 60; Glucose Fasting 77 mg/dL (60-99); Potassium 3.6 mmol/L (3.3-5.1); Sodium 137 mmol/L (135-145)
[2022-08-04 07:55] VITALS: BP 131/76; PULSE 75; RESP 18; TEMP 36.7; O2SAT 93
[2022-08-04 08:04] LABS: Glucose, Whole Blood 63 mg/dL (60-115)
[2022-08-04] MEDS: Aspirin Enteric Coated 81 MG TABLET.DR PO (08:42)
[2022-08-04] MEDS: Furosemide 40 MG/4 ML VIAL IVPUSH (08:42)
[2022-08-04] MEDS: glipiZIDE 5 MG TABLET PO (08:42)
[2022-08-04] MEDS: Metoprolol Tartrate 50 MG TABLET PO ×2 (08:42→22:09)
[2022-08-04] MEDS: metFORMIN HCl 850 MG TABLET PO (08:42)
[2022-08-04] MEDS: Apixaban 5 MG TABLET PO ×2 (08:42→22:10)
[2022-08-04] MEDS: Multivitamin TABLET 1 TAB PO (08:42)
[2022-08-04] MEDS: 0.9 % Sodium Chloride Flush 3 ML SYRINGE IVFLUSH ×3 (08:42→22:16)
--- NOTE | 2022-08-04 09:04 | P.PNIM_ITS ---
Subjective Subjective Date of Service: 08/04/22 Interval History: asymptomatic Physical Exam Vital Signs: Vital Signs: Last Vital Signs Temp 98.1 F 08/04/22 07:55 Pulse 75 08/04/22 07:55 Resp 18 08/04/22 07:55 BP 131/76 08/04/22 07:55 Pulse Ox 93 08/04/22 07:55 O2 Del Method Room Air 08/04/22 07:55 O2 Flow Rate 2 07/27/22 22:00 BMI result Body Mass Index 29.6 GENERAL APPEARANCE: in no acute distress SKIN: no suspicious lesions, warm and dry. HEART: no murmurs (auscultation was performed even with breath hold but I still could not appreciate the aortic stenosis murmur in her), irregular rate and rhythm. + JVD LUNGS: clear to auscultation bilaterally. Diminished at bases. ABDOMEN: soft, nontender. EXTREMITIES: Positive edema. PERIPHERAL PULSES: equal. NEUROLOGIC: No gross deficits, awake and following simple commands. Objective Data Active Medications Acetaminophen (Acetaminophen 325 Mg Tablet) 650 mg PO Q6H PRN PRN Reason: Pain, Mild (Pain Scale 1-3) Last Admin: 08/01/22 11:51 Dose: 650 mg Documented By: GENIE Apixaban (Apixaban 5 Mg Tablet) 5 mg PO BID [facility] Last Admin: 08/04/22 08:42 Dose: 5 mg Documented By: JB Aspirin (Aspirin Enteric Coated 81 Mg Tablet.) 81 mg PO DAILY [facility] Last Admin: 08/04/22 08:42 Dose: 81 mg Documented By: JB Atorvastatin Calcium (Atorvastatin Calcium 20 Mg Tablet) 20 mg PO BEDTIME [facility] Last Admin: 08/03/22 20:31 Dose: 20 mg Documented By: MILTON Enalapril Maleate (Enalapril Maleate 5 Mg Tablet) 20 mg PO DAILY [facility]; Protocol Last Admin: 07/29/22 08:49 Dose: 20 mg Documented By: MARISELA Furosemide (Furosemide 40 Mg/4 Ml Vial) 40 mg IVPUSH BID@0900,1800 [facility]; Protocol Last Admin: 08/04/22 08:42 Dose: 40 mg Documented By: JB Glipizide (Glipizide 5 Mg Tablet) 5 mg PO DAILY [facility] Last Admin: 08/04/22 08:42 Dose: 5 mg Documented By: JB Glucose (Glucose Gel 15 Gm Gel..Gram.) 15 gm PO Q15M PRN; Protocol PRN Reason: per Hypoglycemia Standing Ord. Dextrose (D10) 250 mls @ 750 mls/hr IV Q15M PRN; Protocol PRN Reason: per Hypoglycemia Standing Ord. Insulin Glargine (Insulin Glargine,Hum.Rec.Anlog 100 Unit/Ml 10 Ml Vial) 15 uni t SUBCUT BEDTIME [facility] Last Admin: 08/03/22 20:32 Dose: 15 unit Documented By: MILTON Insulin Human Lispro (Insulin Lispro 100 Unit/Ml 3 Ml Vial) 0 unit SUBCUT QIDACHS [facility]; Protocol Last Admin: 08/04/22 08:34 Dose: Not Given Documented By: JB Non-Admin Reason: No Insulin Coverage Comments: poc 63- given 1 cup of orange juice Levothyroxine Sodium (Levothyroxine Sodium 112 Mcg Tablet) 112 mcg PO DAILY@0600 [facility] Last Admin: 08/04/22 05:48 Dose: 112 mcg Documented By: MILTON Metformin HCl (Metformin Hcl 850 Mg Tablet) 850 mg PO BIDWM [facility] Last Admin: 08/04/22 08:42 Dose: 850 mg Documented By: JB Metoprolol Tartrate (Metoprolol Tartrate 50 Mg Tablet) 50 mg PO BID [facility]; Protocol Last Admin: 08/04/22 08:42 Dose: 50 mg Documented By: JB Multivitamins/Vitamin C (Multivitamin Tablet) 1 tab PO DAILY [facility] Last Admin: 08/04/22 08:42 Dose: 1 tab Documented By: JB Ondansetron HCl (Ondansetron Hcl 4 Mg/2 Ml Vial) 4 mg IVPUSH Q8H PRN PRN Reason: Nausea and Vomiting Quetiapine Fumarate (Quetiapine Fumarate 25 Mg Tablet) 25 mg PO Q8H PRN PRN Reason: anxiety/restlessness Sodium Chloride (0.9 % Sodium Chloride Flush 3 Ml Syringe) 3 ml IVFLUSH QSHIFT [facility] Last Admin: 08/04/22 08:42 Dose: 3 ml Documented By: JB Labs 08/04/22 05:55 08/04/22 05:55 Labs: Laboratory Results - last 24 hr 08/03/22 08/03/22 08/03/22 11:08 16:14 19:39 MCV MCH MCHC RDW Plt Count MPV Absolute Nucleated RBC Nucleated RBC % (auto) Anion Gap Estim Creat Clear Calc Estimated GFR POC Glucose 187 H 78 128 H Fasting Glucose Calcium 08/04/22 08/04/22 08/04/22 05:55 05:55 07:52 MCV 86.3 MCH 28.2 MCHC 32.7 RDW 14.2 Plt Count 236 MPV 9.4 Absolute Nucleated RBC 0.000 Nucleated RBC % (auto) 0.0 Anion Gap 15 Estim Creat Clear Calc 52.8 Estimated GFR > 60 POC Glucose 63 Fasting Glucose 77 Calcium 8.4 Assessment and Plan (1) Atrial fibrillation with RVR: Status: Acute (2) Hyperglycemia: Status: Acute (3) Fall: Status: Acute Plan 77-year-old female with hypothyroidism, [id number] type 2 diabetes, hypertension, hyperlipidemia, paroxysmal atrial fibrillation anticoagulated with Eliquis, history of invasive ductal carcinoma of the breast, and history of uterine cancer presentd with mechanical fall, afib with rvr paroxysmal afib with rvr and episodes of yi Continue eliquis, metoprolol increased back up to 50mg bid, monitor for yi severe on echo heart rate better controlled acute on chronic diastolic chf will change to po lasix hypotension, resolved holding Enalapril Capacity question evaluated by psych on admission, has no capacity to sign AMA or take medical decesions at this point will need reeval by time of discharge DM with hyperglycemia insulin hypothryoid synthroid hld statin hisotry of breast and uterine cancer outpatinet oncology follow up dvt prophylaxis Eliquis full code reason for continued hospitalization: safe dispo Time Spent With Patient Time: Total time managing care of this patient today ____ minutes. Quality Stroke Does the patient have a stroke diagnosis?: No VTE Prior VTE?: No VTE Risk Level:: Medical - moderate - high VTE Device Contraindication: Treatment Not Indicated VTE Drug Contraindication: N/A - Med Ordered
[2022-08-04 09:48] LABS: Glucose, Whole Blood 137 mg/dL (60-115)
[2022-08-04 11:37] VITALS: BP 141/65; PULSE 73; RESP 18; TEMP 37; O2SAT 94
[2022-08-04 11:59] LABS: Glucose, Whole Blood 196 mg/dL (60-115)
[2022-08-04 15:09] VITALS: BP 155/65; PULSE 88; RESP 20; TEMP 36.6; O2SAT 95
[2022-08-04 16:16] LABS: Glucose, Whole Blood 260 mg/dL (60-115)
[2022-08-04] MEDS: Insulin Lispro 100 UNIT/ML 3 ML VIAL SUBCUT ×2 (16:50→22:16)
[2022-08-04 19:02] VITALS: BP 129/56; PULSE 80; RESP 20; TEMP 37.3; O2SAT 96
[2022-08-04 19:42] LABS: Glucose, Whole Blood 179 mg/dL (60-115)
[2022-08-04] MEDS: Insulin Glargine,Hum.rec.anlog 100 UNIT/ML 10 ML VIAL 15 UNIT SUBCUT (22:09)
[2022-08-04] MEDS: Atorvastatin Calcium 20 MG TABLET PO (22:10)
[2022-08-04 23:58] VITALS: BP 140/60; PULSE 71; RESP 14; TEMP 37.1; O2SAT 95
[2022-08-05 03:49] VITALS: BP 124/64; PULSE 94; RESP 16; TEMP 36.6; O2SAT 92
[2022-08-05] MEDS: Levothyroxine Sodium 112 MCG TABLET PO (05:26)
[2022-08-05] MEDS: 0.9 % Sodium Chloride Flush 3 ML SYRINGE IVFLUSH ×2 (05:27→17:19)
[2022-08-05 07:28] VITALS: BP 108/64; PULSE 101; RESP 20; TEMP 36.2; O2SAT 93
[2022-08-05 08:03] LABS: Glucose, Whole Blood 197 mg/dL (60-115)
[2022-08-05] MEDS: Insulin Lispro 100 UNIT/ML 3 ML VIAL SUBCUT ×4 (08:50→20:11)
[2022-08-05] MEDS: Aspirin Enteric Coated 81 MG TABLET.DR PO (08:52)
[2022-08-05] MEDS: Metoprolol Tartrate 50 MG TABLET PO ×2 (08:52→20:11)
[2022-08-05] MEDS: Furosemide 40 MG TABLET PO (08:52)
[2022-08-05] MEDS: glipiZIDE 5 MG TABLET PO (08:52)
[2022-08-05] MEDS: Apixaban 5 MG TABLET PO ×2 (08:52→20:23)
--- NOTE | 2022-08-05 09:50 | P.PNIM_ITS ---
Subjective Subjective Date of Service: 08/05/22 Interval History: asymptomatic Physical Exam Vital Signs: Vital Signs: Last Vital Signs Temp 97.1 F 08/05/22 07:28 Pulse 101 H 08/05/22 07:28 Resp 20 08/05/22 07:28 BP 108/64 08/05/22 07:28 Pulse Ox 93 08/05/22 07:28 O2 Del Method Room Air 08/05/22 07:28 O2 Flow Rate 2 07/27/22 22:00 BMI result Body Mass Index 29.6 GENERAL APPEARANCE: in no acute distress SKIN: no suspicious lesions, warm and dry. HEART: no murmurs (auscultation was performed even with breath hold but I still could not appreciate the aortic stenosis murmur in her), irregular rate and rhythm. + JVD LUNGS: clear to auscultation bilaterally. Diminished at bases. ABDOMEN: soft, nontender. EXTREMITIES: Positive edema. PERIPHERAL PULSES: equal. NEUROLOGIC: No gross deficits, awake and following simple commands. Objective Data Active Medications Acetaminophen (Acetaminophen 325 Mg Tablet) 650 mg PO Q6H PRN PRN Reason: Pain, Mild (Pain Scale 1-3) Last Admin: 08/01/22 11:51 Dose: 650 mg Documented By: GENIE Apixaban (Apixaban 5 Mg Tablet) 5 mg PO BID [facility] Last Admin: 08/05/22 08:52 Dose: 5 mg Documented By: MARISELA Aspirin (Aspirin Enteric Coated 81 Mg Tablet.) 81 mg PO DAILY [facility] Last Admin: 08/05/22 08:52 Dose: 81 mg Documented By: MARISELA Atorvastatin Calcium (Atorvastatin Calcium 20 Mg Tablet) 20 mg PO BEDTIME [facility] Last Admin: 08/04/22 22:10 Dose: 20 mg Documented By: MILTON Enalapril Maleate (Enalapril Maleate 5 Mg Tablet) 20 mg PO DAILY [facility]; Protocol Last Admin: 07/29/22 08:49 Dose: 20 mg Documented By: MARISELA Furosemide (Furosemide 40 Mg Tablet) 40 mg PO DAILY [facility]; Protocol Last Admin: 08/05/22 08:52 Dose: 40 mg Documented By: MARISELA Glipizide (Glipizide 5 Mg Tablet) 5 mg PO DAILY [facility] Last Admin: 08/05/22 08:52 Dose: 5 mg Documented By: MARISELA Glucose (Glucose Gel 15 Gm Gel..Gram.) 15 gm PO Q15M PRN; Protocol PRN Reason: per Hypoglycemia Standing Ord. Dextrose (D10) 250 mls @ 750 mls/hr IV Q15M PRN; Protocol PRN Reason: per Hypoglycemia Standing Ord. Insulin Glargine (Insulin Glargine,Hum.Rec.Anlog 100 Unit/Ml 10 Ml Vial) 15 unit SUBCUT BEDTIME [facility] Last Admin: 08/04/22 22:09 Dose: 15 unit Documented By: MILTON Insulin Human Lispro (Insulin Lispro 100 Unit/Ml 3 Ml Vial) 0 unit SUBCUT QIDACHS [facility]; Protocol Last Admin: 08/05/22 08:50 Dose: 2 unit Documented By: MARISELA Levothyroxine Sodium (Levothyroxine Sodium 112 Mcg Tablet) 112 mcg PO DAILY@0600 [facility] Last Admin: 08/05/22 05:26 Dose: 112 mcg Documented By: MILTON Metformin HCl (Metformin Hcl 850 Mg Tablet) 850 mg PO BIDWM [facility] Last Admin: 08/05/22 08:58 Dose: Not Given Documented By: MARISELA Non-Admin Reason: Patient Refused Metoprolol Tartrate (Metoprolol Tartrate 50 Mg Tablet) 50 mg PO BID [facility]; Protocol Last Admin: 08/05/22 08:52 Dose: 50 mg Documented By: MARISELA Multivitamins/Vitamin C (Multivitamin Tablet) 1 tab PO DAILY [facility] Last Admin: 08/05/22 08:54 Dose: Not Given Documented By: MARISELA Non-Admin Reason: Patient Refused Ondansetron HCl (Ondansetron Hcl 4 Mg/2 Ml Vial) 4 mg IVPUSH Q8H PRN PRN Reason: Nausea and Vomiting Quetiapine Fumarate (Quetiapine Fumarate 25 Mg Tablet) 25 mg PO Q8H PRN PRN Reason: anxiety/restlessness Sodium Chloride (0.9 % Sodium Chloride Flush 3 Ml Syringe) 3 ml IVFLUSH QSHIFT [facility] Last Admin: 08/05/22 05:27 Dose: 3 ml Documented By: MILTON Labs 08/04/22 05:55 08/04/22 05:55 Labs: Laboratory Results - last 24 hr 08/04/22 08/04/22 08/04/22 11:34 16:10 19:36 POC Glucose 196 H 260 H 179 H 08/05/22 08:00 POC Glucose 197 H Assessment and Plan (1) Atrial fibrillation with RVR: Status: Acute (2) Hyperglycemia: Status: Acute (3) Fall: Status: Acute Plan 77-year-old female with hypothyroidism, [id number] type 2 diabetes, hypertension, hyperlipidemia, paroxysmal atrial fibrillation anticoagulated with Eliquis, history of invasive ductal carcinoma of the breast, and history of uterine cancer presentd with mechanical fall, afib with rvr paroxysmal afib with rvr and episodes of yi Continue eliquis, metoprolol increased back up to 50mg bid, monitor for yi severe on echo heart rate better controlled acute on chronic diastolic chf po lasix hypotension, resolved holding Enalapril Capacity question evaluated by psych on admission, has no capacity to sign AMA or take medical decesions at this point will need reeval by time of discharge DM with hyperglycemia insulin hypothryoid synthroid hld statin hisotry of breast and uterine cancer outpatinet oncology follow up dvt prophylaxis Eliquis full code reason for continued hospitalization: safe dispo Time Spent With Patient Time: Total time managing care of this patient today ____ minutes. Quality Stroke Does the patient have a stroke diagnosis?: No VTE Prior VTE?: No VTE Risk Level:: Medical - moderate - high VTE Device Contraindication: Treatment Not Indicated VTE Drug Contraindication: N/A - Med Ordered
[2022-08-05 11:21] LABS: Glucose, Whole Blood 178 mg/dL (60-115)
[2022-08-05 11:37] VITALS: BP 129/60; PULSE 73; RESP 20; TEMP 37.1; O2SAT 96
[2022-08-05] MEDS: Acetaminophen 325 MG TABLET 650 MG PO (13:02)
[2022-08-05 15:04] VITALS: BP 122/78; PULSE 98; RESP 20; TEMP 36.6; O2SAT 93
[2022-08-05 16:17] LABS: Glucose, Whole Blood 195 mg/dL (60-115)
[2022-08-05 16:41] VITALS: BP 122/78; PULSE 98; O2SAT 93
[2022-08-05 19:23] VITALS: BP 130/60; PULSE 52; RESP 20; TEMP 36.7; O2SAT 95
[2022-08-05 20:04] LABS: Glucose, Whole Blood 285 mg/dL (60-115)
[2022-08-05] MEDS: Atorvastatin Calcium 20 MG TABLET PO (20:11)
[2022-08-05] MEDS: Insulin Glargine,Hum.rec.anlog 100 UNIT/ML 10 ML VIAL 15 UNIT SUBCUT (20:12)
[2022-08-06] VITALS (8 sets, daily range): BP systolic 111–145; BP diastolic 58–82; PULSE 65–136; RESP 18–20; TEMP 36.1–36.7; O2SAT 94–97
[2022-08-06] MEDS: Levothyroxine Sodium 112 MCG TABLET PO (05:11)
[2022-08-06 08:02] LABS: Glucose, Whole Blood 210 mg/dL (60-115)
--- NOTE | 2022-08-06 08:27 | MHC.CM.PN ---
EMR REVIEWED, PT CONT'S TO BE IN NEED OF LTC BED, PER FS PT'S BANK WOULD NOT GIVE BANK STATEMENTS TO DTR LIAM W/LETTER PT SIGNED AND REQUESTED A NOTARIZED LETTER TO RELEASE STATEMENTS, [facility] HAS BROUGHT IN SOME NEEDED DOCUMENTS HOWEVER WILL NEED TO LOOK FOR MORE AT PT'S APT. PER FS LIAM HAS AN APPT THIS FRIDAY AFTERNOON AND ANTIC MH JUWAN WILL BE COMPLETED DURING THAT APPT. CM WILL CONT TO FOLLOW D/C NEEDS.
[2022-08-06] MEDS: glipiZIDE 5 MG TABLET PO (08:38)
[2022-08-06] MEDS: Apixaban 5 MG TABLET PO ×2 (08:38→21:17)
[2022-08-06] MEDS: Furosemide 40 MG TABLET PO (08:38)
[2022-08-06] MEDS: Insulin Lispro 100 UNIT/ML 3 ML VIAL SUBCUT ×4 (08:39→21:17)
[2022-08-06] MEDS: Aspirin Enteric Coated 81 MG TABLET.DR PO (08:39)
[2022-08-06] MEDS: 0.9 % Sodium Chloride Flush 3 ML SYRINGE IVFLUSH ×2 (08:39→17:37)
[2022-08-06] MEDS: Metoprolol Tartrate 50 MG TABLET PO ×2 (08:39→21:17)
--- NOTE | 2022-08-06 10:46 | P.PNIM_ITS ---
Subjective Subjective Date of Service: 08/06/22 Interval History: no complaints Physical Exam Vital Signs: Vital Signs: Last Vital Signs Temp 97.4 F 08/06/22 07:20 Pulse 75 08/06/22 09:23 Resp 20 08/06/22 07:20 BP 138/82 08/06/22 09:23 Pulse Ox 97 08/06/22 09:23 O2 Del Method Room Air 08/06/22 07:20 O2 Flow Rate 2 07/27/22 22:00 BMI result Body Mass Index 29.6 GENERAL APPEARANCE: in no acute distress SKIN: no suspicious lesions, warm and dry. HEART: no murmurs (auscultation was performed even with breath hold but I still could not appreciate the aortic stenosis murmur in her), irregular rate and rhythm. + JVD LUNGS: clear to auscultation bilaterally. Diminished at bases. ABDOMEN: soft, nontender. EXTREMITIES: Positive edema. PERIPHERAL PULSES: equal. NEUROLOGIC: No gross deficits, awake and following simple commands. Objective Data Active Medications Acetaminophen (Acetaminophen 325 Mg Tablet) 650 mg PO Q6H PRN PRN Reason: Pain, Mild (Pain Scale 1-3) Last Admin: 08/05/22 13:02 Dose: 650 mg Documented By: MARISELA Apixaban (Apixaban 5 Mg Tablet) 5 mg PO BID [facility] Last Admin: 08/06/22 08:38 Dose: 5 mg Documented By: MARISELA Aspirin (Aspirin Enteric Coated 81 Mg Tablet.) 81 mg PO DAILY [facility] Last Admin: 08/06/22 08:39 Dose: 81 mg Documented By: MARISELA Atorvastatin Calcium (Atorvastatin Calcium 20 Mg Tablet) 20 mg PO BEDTIME [facility] Last Admin: 08/05/22 20:11 Dose: 20 mg Documented By: MICHAEL Enalapril Maleate (Enalapril Maleate 5 Mg Tablet) 20 mg PO DAILY [facility]; Protocol Last Admin: 07/29/22 08:49 Dose: 20 mg Documented By: MARISELA Furosemide (Furosemide 40 Mg Tablet) 40 mg PO DAILY [facility]; Protocol Last Admin: 08/06/22 08:38 Dose: 40 mg Documented By: MARISELA Glipizide (Glipizide 5 Mg Tablet) 5 mg PO DAILY [facility] Last Admin: 08/06/22 08:38 Dose: 5 mg Documented By: MARISELA Glucose (Glucose Gel 15 Gm Gel..Gram.) 15 gm PO Q15M PRN; Protocol PRN Reason: per Hypoglycemia Standing Ord. Dextrose (D10) 250 mls @ 750 mls/hr IV Q15M PRN; Protocol PRN Reason: per Hypoglycemia Standing Ord. Insulin Glargine (Insulin Glargine,Hum.Rec.Anlog 100 Unit/Ml 10 Ml Vial) 15 unit SUBCUT BEDTIME [facility] Last Admin: 08/05/22 20:12 Dose: 15 unit Documented By: MICHAEL Insulin Human Lispro (Insulin Lispro 100 Unit/Ml 3 Ml Vial) 0 unit SUBCUT QIDACHS [facility]; Protocol Last Admin: 08/06/22 08:39 Dose: 4 unit Documented By: MARISELA Levothyroxine Sodium (Levothyroxine Sodium 112 Mcg Tablet) 112 mcg PO DAILY@0600 [facility] Last Admin: 08/06/22 05:11 Dose: 112 mcg Documented By: MICHAEL Metformin HCl (Metformin Hcl 850 Mg Tablet) 850 mg PO BIDWM [facility] Last Admin: 08/06/22 08:39 Dose: Not Given Documented By: MARISELA Non-Admin Reason: Patient Refused Metoprolol Tartrate (Metoprolol Tartrate 50 Mg Tablet) 50 mg PO BID [facility]; Protocol Last Admin: 08/06/22 08:39 Dose: 50 mg Documented By: MARISELA Multivitamins/Vitamin C (Multivitamin Tablet) 1 tab PO DAILY [facility] Last Admin: 08/06/22 08:39 Dose: Not Given Documented By: MARISELA Non-Admin Reason: Patient Refused Ondansetron HCl (Ondansetron Hcl 4 Mg/2 Ml Vial) 4 mg IVPUSH Q8H PRN PRN Reason: Nausea and Vomiting Quetiapine Fumarate (Quetiapine Fumarate 25 Mg Tablet) 25 mg PO Q8H PRN PRN Reason: anxiety/restlessness Sodium Chloride (0.9 % Sodium Chloride Flush 3 Ml Syringe) 3 ml IVFLUSH QSHIFT [facility] Last Admin: 08/06/22 08:39 Dose: 3 ml Documented By: MARISELA Labs 08/04/22 05:55 08/04/22 05:55 Labs: Laboratory Results - last 24 hr 08/05/22 08/05/22 08/05/22 11:09 16:10 19:59 POC Glucose 178 H 195 H 285 H 08/06/22 07:24 POC Glucose 210 H Assessment and Plan (1) Atrial fibrillation with RVR: Status: Acute (2) Hyperglycemia: Status: Acute (3) Fall: Status: Acute Plan 77-year-old female with hypothyroidism, [id number] type 2 diabetes, hypertension, hyperlipidemia, paroxysmal atrial fibrillation anticoagulated with Eliquis, history of invasive ductal carcinoma of the breast, and history of uterine cancer presentd with mechanical fall, afib with rvr paroxysmal afib with rvr and episodes of yi Continue eliquis, metoprolol increased back up to 50mg bid, monitor for yi severe on echo heart rate better controlled acute on chronic diastolic chf po lasix hypotension, resolved holding Enalapril Capacity question evaluated by psych on admission, has no capacity to sign AMA or take medical decesions at this point will need reeval by time of discharge DM with hyperglycemia insulin hypothryoid synthroid hld statin hisotry of breast and uterine cancer outpatinet oncology follow up dvt prophylaxis Eliquis full code reason for continued hospitalization: safe dispo Time Spent With Patient Time: Total time managing care of this patient today ____ minutes. Quality Stroke Does the patient have a stroke diagnosis?: No VTE Prior VTE?: No VTE Risk Level:: Medical - moderate - high VTE Device Contraindication: Treatment Not Indicated VTE Drug Contraindication: N/A - Med Ordered
[2022-08-06 11:55] LABS: Glucose, Whole Blood 181 mg/dL (60-115)
[2022-08-06 16:12] LABS: Glucose, Whole Blood 197 mg/dL (60-115)
[2022-08-06] MEDS: metFORMIN HCl 850 MG TABLET PO (17:38)
[2022-08-06 19:47] LABS: Glucose, Whole Blood 151 mg/dL (60-115)
[2022-08-06] MEDS: Atorvastatin Calcium 20 MG TABLET PO (21:17)
[2022-08-06] MEDS: Insulin Glargine,Hum.rec.anlog 100 UNIT/ML 10 ML VIAL 15 UNIT SUBCUT (21:17)
[2022-08-07] VITALS (7 sets, daily range): BP systolic 109–146; BP diastolic 55–85; PULSE 69–96; RESP 15–20; TEMP 36.1–36.7; O2SAT 95–97
[2022-08-07] MEDS: Levothyroxine Sodium 112 MCG TABLET PO (06:13)
[2022-08-07 07:27] LABS: Glucose, Whole Blood 177 mg/dL (60-115)
[2022-08-07] MEDS: Insulin Lispro 100 UNIT/ML 3 ML VIAL SUBCUT ×3 (08:25→20:35)
[2022-08-07] MEDS: 0.9 % Sodium Chloride Flush 3 ML SYRINGE IVFLUSH (08:26)
--- NOTE | 2022-08-07 08:33 | MHC.CM.PN ---
EMR AND SNF REFERRAL REVIEWED, CM RECEIVED MESSAGES FROM AMILCAR FULLER AND SARA GRACE TO RESUBMIT REFERRAL ONCE MH JUWAN HAS BEEN SUBMITTED AND BEING PROCESSED. PER FS PT'S DTR LIAM CAME IN YESTERDAY WITH 5YRS BANK STATEMENTS AND ADDITIONAL PAPERWORK, MH JUWAN TO BE SUBMITTED TODAY. CM WILL CONT TO FOLLOW D/C NEEDS.
[2022-08-07] MEDS: Furosemide 40 MG TABLET PO (09:43)
[2022-08-07] MEDS: Aspirin Enteric Coated 81 MG TABLET.DR PO (09:44)
[2022-08-07] MEDS: Apixaban 5 MG TABLET PO ×2 (09:45→20:36)
[2022-08-07] MEDS: Metoprolol Tartrate 50 MG TABLET PO ×2 (09:46→20:36)
[2022-08-07] MEDS: glipiZIDE 5 MG TABLET PO (09:46)
[2022-08-07] MEDS: metFORMIN HCl 850 MG TABLET PO (09:46)
[2022-08-07 11:11] LABS: Glucose, Whole Blood 153 mg/dL (60-115)
--- NOTE | 2022-08-07 14:35 | HO.PM.IMPN ---
Subjective Subjective Date of Service: 08/07/22 Interval History: Seen and evaluated this morning HR better controlled BP stable Less anxious and more cooperative no other overnight events Review of Systems Review of Systems: Yes all other systems are reviewed and are negative Physical Exam Vital Signs: Vital Signs: Last Vital Signs Temp 98.0 F 08/07/22 11:11 Pulse 96 08/07/22 11:11 Resp 20 08/07/22 11:11 BP 134/61 08/07/22 11:11 Pulse Ox 95 08/07/22 11:11 O2 Del Method Room Air 08/07/22 11:11 O2 Flow Rate 2 07/27/22 22:00 BMI result Body Mass Index 29.6 Const: Other: Constitutional : Awake, interactive Neck : Normal inspection, Supple Cardiovascular : irregular irregular, no JVP, no lower extremity edema Respiratory : good bilateral air entry, no crackles, wheezes or rhonchi Gastrointestinal: soft, lax, Normal bowel sounds, Non tender Skin : Warm, Dry Neurological : Alert & oriented x2, can get easily confused, No focal deficit Objective Data Active Medications Acetaminophen (Acetaminophen 325 Mg Tablet) 650 mg PO Q6H PRN PRN Reason: Pain, Mild (Pain Scale 1-3) Last Admin: 08/05/22 13:02 Dose: 650 mg Documented By: MARISELA Apixaban (Apixaban 5 Mg Tablet) 5 mg PO BID REPLACED BY [facility] Last Admin: 08/07/22 09:45 Dose: 5 mg Documented By: AMY Aspirin (Aspirin Enteric Coated 81 Mg Tablet.) 81 mg PO DAILY REPLACED BY [facility] Last Admin: 08/07/22 09:44 Dose: 81 mg Documented By: AMY Atorvastatin Calcium (Atorvastatin Calcium 20 Mg Tablet) 20 mg PO BEDTIME REPLACED BY [facility] Last Admin: 08/06/22 21:17 Dose: 20 mg Documented By: LINDA-NIKAZEMarianna Enalapril Maleate (Enalapril Maleate 5 Mg Tablet) 20 mg PO DAILY [facility]PL[facility]; Protocol Last Admin: 07/29/22 08:49 Dose: 20 mg Documented By: MARISELA Furosemide (Furosemide 40 Mg Tablet) 40 mg PO DAILY [facility]PL[facility] BY [facility]; Protocol Last Admin: 08/07/22 09:43 Dose: 40 mg Documented By: AMY Glipizide (Glipizide 5 Mg Tablet) 5 mg PO DAILY [facility]PL[facility] Last Admin: 08/07/22 09:46 Dose: 5 mg Documented By: AMY Glucose (Glucose Gel 15 Gm Gel..Gram.) 15 gm PO Q15M PRN; Protocol PRN Reason: per Hypoglycemia Standing Ord. Dextrose (D10) 250 mls @ 750 mls/hr IV Q15M PRN; Protocol PRN Reason: per Hypoglycemia Standing Ord. Insulin Glargine (Insulin Glargine,Hum.Rec.Anlog 100 Unit/Ml 10 Ml Vial) 15 unit SUBCUT BEDTIME [facility]PL[facility] Last Admin: 08/06/22 21:17 Dose: 15 unit Documented By: MELE Insulin Human Lispro (Insulin Lispro 100 Unit/Ml 3 Ml Vial) 0 unit SUBCUT QIDACHS REPLACED BY [facility]; Protocol Last Admin: 08/07/22 12:27 Dose: 2 unit Documented By: MICHAELA Levothyroxine Sodium (Levothyroxine Sodium 112 Mcg Tablet) 112 mcg PO DAILY@0600 [facility]PL[facility]ED [facility] Last Admin: 08/07/22 06:13 Dose: 112 mcg Documented By: MELE Metformin HCl (Metformin Hcl 850 Mg Tablet) 850 mg PO BIDWM REPLACED BY [facility] Last Admin: 08/07/22 09:46 Dose: 425 mg Documented By: AMY Comments: patient refused second half of pill, MD aware Metoprolol Tartrate (Metoprolol Tartrate 50 Mg Tablet) 50 mg PO BID [facility]PL[facility]ED [facility]; Protocol Last Admin: 08/07/22 09:46 Dose: 50 mg Documented By: AMY Multivitamins/Vitamin C (Multivitamin Tablet) 1 tab PO DAILY [facility]PL[facility]ED [facility] Last Admin: 08/07/22 09:50 Dose: Not Given Documented By: AMY Non-Admin Reason: Patient Refused Ondansetron HCl (Ondansetron Hcl 4 Mg/2 Ml Vial) 4 mg IVPUSH Q8H PRN PRN Reason: Nausea and Vomiting Quetiapine Fumarate (Quetiapine Fumarate 25 Mg Tablet) 25 mg PO Q8H PRN PRN Reason: anxiety/restlessness Sodium Chloride (0.9 % Sodium Chloride Flush 3 Ml Syringe) 3 ml IVFLUSH QSHIFT REPLACED BY [facility] Last Admin: 08/07/22 11:59 Dose: Not Given Documented By: MICHAELA Non-Admin Reason: See Note Labs 08/04/22 05:55 08/04/22 05:55 Labs: Laboratory Results - last 24 hr 08/06/22 08/06/22 08/07/22 16:06 19:41 07:23 POC Glucose 197 H 151 H 177 H 08/07/22 10:59 POC Glucose 153 H Assessment and Plan (1) Neurodegenerative cognitive impairment: Status: Acute Plan 77-year-old female with hypothyroidism, [id number] type 2 diabetes, hypertension, hyperlipidemia, paroxysmal atrial fibrillation anticoagulated with Eliquis, history of invasive ductal carcinoma of the breast, and history of uterine cancer presentd with mechanical fall, afib with rvr paroxysmal afib with rvr DC cardizem, Continue eliquis, metoprolol cardio input appreciated, decrease Metoprolol to 25mg bid ((patient was on Cardizem same time which DC'd)) Will monitor response on lower dosage but might need to put her back on home dose of 50 bid echo pending chf unspecified not in exacerbation echo pending holding diuretics for now hypotension, resolved give bolus DC Cardizem, hold Enalapril DC Lasix Capacity question evaluated by psych on admission, has no capacity to sign AMA or take medical decesions at this point will need reeval by time of discharge DM with hyperglycemia insulin hypothryoid synthroid hld statin hisotry of breast and uterine cancer outpatinet oncology follow up dvt prophylaxis Eliquis full code patient with afib with rvr, hypotensive, at risk for further decompensation due to advanced age, frailty, dm, therefore, expected to require overnight inpatient pending safe discharge plan. Time Spent With Patient Time: Total time managing care of this patient today ____ minutes. Quality Stroke Does the patient have a stroke diagnosis?: No VTE Prior VTE?: No VTE Risk Level:: Medical - moderate - high VTE Device Contraindication: Treatment Not Indicated VTE Drug Contraindication: N/A - Med Ordered
[2022-08-07 16:08] LABS: Glucose, Whole Blood 117 mg/dL (60-115)
[2022-08-07 20:05] LABS: Glucose, Whole Blood 206 mg/dL (60-115)
[2022-08-07] MEDS: Atorvastatin Calcium 20 MG TABLET PO (20:36)
[2022-08-07] MEDS: Insulin Glargine,Hum.rec.anlog 100 UNIT/ML 10 ML VIAL 15 UNIT SUBCUT (20:36)
[2022-08-08] MEDS: 0.9 % Sodium Chloride Flush 3 ML SYRINGE IVFLUSH ×4 (00:27→20:18)
[2022-08-08 04:00] VITALS: BP 133/64; PULSE 80; RESP 14; TEMP 36.3; O2SAT 97
[2022-08-08] MEDS: Levothyroxine Sodium 112 MCG TABLET PO (05:25)
[2022-08-08 08:00] VITALS: BP 126/76; PULSE 89; RESP 18; TEMP 36.6; O2SAT 95
[2022-08-08 08:15] LABS: Glucose, Whole Blood 182 mg/dL (60-115)
[2022-08-08] MEDS: Multivitamin TABLET 1 TAB PO (08:16)
[2022-08-08] MEDS: glipiZIDE 5 MG TABLET PO (08:16)
[2022-08-08] MEDS: Metoprolol Tartrate 50 MG TABLET PO (08:16)
[2022-08-08] MEDS: Insulin Lispro 100 UNIT/ML 3 ML VIAL SUBCUT ×4 (08:16→20:19)
[2022-08-08] MEDS: Furosemide 40 MG TABLET PO (08:16)
[2022-08-08] MEDS: Apixaban 5 MG TABLET PO ×2 (08:17→20:19)
[2022-08-08] MEDS: metFORMIN HCl 850 MG TABLET PO ×2 (08:17→17:17)
[2022-08-08] MEDS: Aspirin Enteric Coated 81 MG TABLET.DR PO (08:17)
[2022-08-08 11:31] VITALS: BP 116/82; PULSE 92; RESP 20; TEMP 36.4; O2SAT 96
[2022-08-08 12:05] LABS: Glucose, Whole Blood 287 mg/dL (60-115)
--- NOTE | 2022-08-08 14:12 | P.PNIM_ITS ---
Subjective Subjective Date of Service: 08/08/22 Interval History: Seen and evaluated this morning HR controlled around 90-100s BP stable Less anxious and more cooperative no other overnight events Physical Exam Vital Signs: Vital Signs: Last Vital Signs Temp 97.5 F 08/08/22 11:31 Pulse 92 08/08/22 11:31 Resp 20 08/08/22 11:31 BP 116/82 08/08/22 11:31 Pulse Ox 96 08/08/22 11:31 O2 Del Method Room Air 08/08/22 11:31 O2 Flow Rate 2 07/27/22 22:00 BMI result Body Mass Index 29.6 Const: Other: Constitutional : Awake, interactive Neck : Normal inspection, Supple Cardiovascular : irregular irregular, no JVP, no lower extremity edema Respiratory : good bilateral air entry, no crackles, wheezes or rhonchi Gastrointestinal: soft, lax, Normal bowel sounds, Non tender Skin : Warm, Dry Neurological : Alert & oriented x2, can get easily confused, No focal deficit Objective Data Active Medications Acetaminophen (Acetaminophen 325 Mg Tablet) 650 mg PO Q6H PRN PRN Reason: Pain, Mild (Pain Scale 1-3) Last Admin: 08/05/22 13:02 Dose: 650 mg Documented By: MARISELA Apixaban (Apixaban 5 Mg Tablet) 5 mg PO BID [facility] Last Admin: 08/08/22 08:17 Dose: 5 mg Documented By: MEGHNA Aspirin (Aspirin Enteric Coated 81 Mg Tablet.) 81 mg PO DAILY [facility] Last Admin: 08/08/22 08:17 Dose: 81 mg Documented By: MEGHNA Atorvastatin Calcium (Atorvastatin Calcium 20 Mg Tablet) 20 mg PO BEDTIME [facility] Last Admin: 08/07/22 20:36 Dose: 20 mg Documented By: SANIA Enalapril Maleate (Enalapril Maleate 5 Mg Tablet) 20 mg PO DAILY [facility]; Protocol Last Admin: 07/29/22 08:49 Dose: 20 mg Documented By: MARISELA Furosemide (Furosemide 40 Mg Tablet) 40 mg PO DAILY [facility]; Protocol Last Admin: 08/08/22 08:16 Dose: 40 mg Documented By: MEGHNA Glipizide (Glipizide 5 Mg Tablet) 5 mg PO DAILY [facility] Last Admin: 08/08/22 08:16 Dose: 5 mg Documented By: MEGHNA Glucose (Glucose Gel 15 Gm Gel..Gram.) 15 gm PO Q15M PRN; Protocol PRN Reason: per Hypoglycemia Standing Ord. Dextrose (D10) 250 mls @ 750 mls/hr IV Q15M PRN; Protocol PRN Reason: per Hypoglycemia Standing Ord. Insulin Glargine (Insulin Glargine,Hum.Rec.Anlog 100 Unit/Ml 10 Ml Vial) 15 unit SUBCUT BEDTIME [facility] Last Admin: 08/07/22 20:36 Dose: 15 unit Documented By: SANIA Insulin Human Lispro (Insulin Lispro 100 Unit/Ml 3 Ml Vial) 0 unit SUBCUT QIDACHS [facility]; Protocol Last Admin: 08/08/22 12:24 Dose: 6 unit Documented By: MEGHNA Levothyroxine Sodium (Levothyroxine Sodium 112 Mcg Tablet) 112 mcg PO DAILY@0600 [facility] Last Admin: 08/08/22 05:25 Dose: 112 mcg Documented By: GUILLERMINA Metformin HCl (Metformin Hcl 850 Mg Tablet) 850 mg PO BIDWM [facility] Last Admin: 08/08/22 08:17 Dose: 850 mg Documented By: MEGHNA Metoprolol Tartrate (Metoprolol Tartrate 50 Mg Tablet) 50 mg PO BID [facility]; Protocol Last Admin: 08/08/22 08:16 Dose: 50 mg Documented By: MEGHNA Multivitamins/Vitamin C (Multivitamin Tablet) 1 tab PO DAILY [facility] Last Admin: 08/08/22 08:16 Dose: 1 tab Documented By: MEGHNA Ondansetron HCl (Ondansetron Hcl 4 Mg/2 Ml Vial) 4 mg IVPUSH Q8H PRN PRN Reason: Nausea and Vomiting Quetiapine Fumarate (Quetiapine Fumarate 25 Mg Tablet) 25 mg PO Q8H PRN PRN Reason: anxiety/restlessness Sodium Chloride (0.9 % Sodium Chloride Flush 3 Ml Syringe) 3 ml IVFLUSH [facility] Last Admin: 08/08/22 08:16 Dose: 3 ml Documented By: MEGHNA Labs 08/04/22 05:55 08/04/22 05:55 Labs: Laboratory Results - last 24 hr 08/07/22 08/07/22 08/08/22 16:03 19:59 08:04 POC Glucose 117 H 206 H 182 H 08/08/22 11:34 POC Glucose 287 H Assessment and Plan (1) Aortic stenosis: Status: Acute (2) Fall: Status: Acute (3) Neurodegenerative cognitive impairment: Status: Acute Plan 77-year-old female with hypothyroidism, [id number] type 2 diabetes, hypertension, hyperlipidemia, paroxysmal atrial fibrillation anticoagulated with Eliquis, history of invasive ductal carcinoma of the breast, and history of uterine cancer presentd with mechanical fall, afib with rvr paroxysmal afib with rvr, resolved Continue eliquis,increase metoprolol to 75 bid severe on echo heart rate better controlled acute on chronic diastolic chf ?po lasix hypotension, resolved restarted lower dose Enalapril lack Capacity 2/2 cognitive impairment evaluated by psych on admission, has no capacity to sign AMA or take medical decisions at this point will need reeval by time of discharge DM with hyperglycemia insulin hypothryoid synthroid hld statin hisotry of breast and uterine cancer outpatinet oncology follow up dvt prophylaxis Eliquis full code reason for continued hospitalization: safe dispo Time Spent With Patient Time: Total time managing care of this patient today ____ minutes. Quality Stroke Does the patient have a stroke diagnosis?: No VTE Prior VTE?: No VTE Risk Level:: Medical - moderate - high VTE Device Contraindication: Treatment Not Indicated VTE Drug Contraindication: N/A - Med Ordered
[2022-08-08 16:00] VITALS: BP 135/88; PULSE 100; RESP 20; TEMP 36; O2SAT 94
[2022-08-08 16:46] LABS: Glucose, Whole Blood 196 mg/dL (60-115)
[2022-08-08 19:36] VITALS: BP 146/85; PULSE 100; RESP 20; TEMP 36.6; O2SAT 94
[2022-08-08 20:05] LABS: Glucose, Whole Blood 189 mg/dL (60-115)
[2022-08-08] MEDS: Metoprolol Tartrate 25 MG TABLET 75 MG PO (20:19)
[2022-08-08] MEDS: Atorvastatin Calcium 20 MG TABLET PO (20:19)
[2022-08-08] MEDS: Insulin Glargine,Hum.rec.anlog 100 UNIT/ML 10 ML VIAL 15 UNIT SUBCUT (20:20)
[2022-08-08 23:33] VITALS: BP 101/51; PULSE 85; RESP 17; TEMP 36.5; O2SAT 98
[2022-08-09] VITALS (7 sets, daily range): BP systolic 116–143; BP diastolic 58–65; PULSE 60–106; RESP 16–20; TEMP 36–36.7; O2SAT 93–99
[2022-08-09] MEDS: Levothyroxine Sodium 112 MCG TABLET PO (05:15)
[2022-08-09 07:47] LABS: Glucose, Whole Blood 187 mg/dL (60-115)
[2022-08-09] MEDS: Insulin Lispro 100 UNIT/ML 3 ML VIAL SUBCUT ×2 (08:11→21:28)
[2022-08-09] MEDS: Metoprolol Tartrate 25 MG TABLET 75 MG PO ×2 (08:11→21:28)
[2022-08-09] MEDS: 0.9 % Sodium Chloride Flush 3 ML SYRINGE IVFLUSH ×2 (08:11→21:29)
[2022-08-09] MEDS: Furosemide 40 MG TABLET PO (08:12)
[2022-08-09] MEDS: Apixaban 5 MG TABLET PO ×2 (08:12→21:28)
[2022-08-09] MEDS: Aspirin Enteric Coated 81 MG TABLET.DR PO (08:12)
[2022-08-09] MEDS: metFORMIN HCl 850 MG TABLET PO (08:12)
--- NOTE | 2022-08-09 10:50 | MHC.CM.PN ---
EMR REVIEWED, PER FS MH JUWAN WAS FAXED ON 08/07/22, FS WILL CALL TO HAVE JUWAN EXPEDITED LATER TODAY, PER HOSPITALIST PT WILL NEED TO BE SEEN BY PSYCH AGAIN PRIOR TO D/C, AMILCAR FULLER/SARA GRACE AND XIN MONZON FOLLOWING, CM WILL CONT TO FOLLOW D/C NEEDS.
--- NOTE | 2022-08-09 11:41 | HO.PM.IMPN ---
Subjective Subjective Date of Service: 08/09/22 Interval History: Seen and evaluated this morning HR better controlled BP stable Less anxious and more cooperative no other overnight events Physical Exam Vital Signs: Vital Signs: Last Vital Signs Temp 96.8 F 08/09/22 07:37 Pulse 84 08/09/22 07:37 Resp 17 08/09/22 07:37 BP 131/60 08/09/22 07:37 Pulse Ox 99 08/09/22 07:37 O2 Del Method Room Air 08/09/22 07:37 O2 Flow Rate 2 07/27/22 22:00 BMI result Body Mass Index 29.6 Const: Other: Constitutional : Awake, interactive Neck : Normal inspection, Supple Cardiovascular : irregular irregular, no JVP, no lower extremity edema Respiratory : good bilateral air entry, no crackles, wheezes or rhonchi Gastrointestinal: soft, lax, Normal bowel sounds, Non tender Skin : Warm, Dry Neurological : Alert & oriented x2, can get easily confused, No focal deficit Objective Data Active Medications Acetaminophen (Acetaminophen 325 Mg Tablet) 650 mg PO Q6H PRN PRN Reason: Pain, Mild (Pain Scale 1-3) Last Admin: 08/05/22 13:02 Dose: 650 mg Documented By: MARISELA Apixaban (Apixaban 5 Mg Tablet) 5 mg PO BID [facility] Last Admin: 08/09/22 08:12 Dose: 5 mg Documented By: MEGHNA Aspirin (Aspirin Enteric Coated 81 Mg Tablet.Dr) 81 mg PO DAILY [facility] Last Admin: 08/09/22 08:12 Dose: 81 mg Documented By: MEGHNA Atorvastatin Calcium (Atorvastatin Calcium 20 Mg Tablet) 20 mg PO BEDTIME [facility] Last Admin: 08/08/22 20:19 Dose: 20 mg Documented By: MILTON Enalapril Maleate (Enalapril Maleate 10 Mg Tablet) 10 mg PO DAILY [facility]; Protocol Furosemide (Furosemide 40 Mg Tablet) 40 mg PO DAILY [facility]; Protocol Last Admin: 08/09/22 08:12 Dose: 40 mg Documented By: MEGHNA Glipizide (Glipizide 5 Mg Tablet) 5 mg PO DAILY [facility] Last Admin: 08/09/22 08:12 Dose: 5 mg Documented By: MEGHNA Glucose (Glucose Gel 15 Gm Gel..Gram.) 15 gm PO Q15M PRN; Protocol PRN Reason: per Hypoglycemia Standing Ord. Dextrose (D10) 250 mls @ 750 mls/hr IV Q15M PRN; Protocol PRN Reason: per Hypoglycemia Standing Ord. Insulin Glargine (Insulin Glargine,Hum.Rec.Anlog 100 Unit/Ml 10 Ml Vial) 15 unit SUBCUT BEDTIME [facility] Last Admin: 08/08/22 20:20 Dose: 15 unit Documented By: MILTON Insulin Human Lispro (Insulin Lispro 100 Unit/Ml 3 Ml Vial) 0 unit SUBCUT QIDACHS [facility]; Protocol Last Admin: 08/09/22 08:11 Dose: 2 unit Documented By: MEGHNA Levothyroxine Sodium (Levothyroxine Sodium 112 Mcg Tablet) 112 mcg PO DAILY@0600 [facility] Last Admin: 08/09/22 05:15 Dose: 112 mcg Documented By: MILTON Metformin HCl (Metformin Hcl 850 Mg Tablet) 850 mg PO BIDWM [facility] Last Admin: 08/09/22 08:12 Dose: 850 mg Documented By: MEGHNA Metoprolol Tartrate (Metoprolol Tartrate 25 Mg Tablet) 75 mg PO BID [facility]; Protocol Last Admin: 08/09/22 08:11 Dose: 75 mg Documented By: MEGHNA Multivitamins/Vitamin C (Multivitamin Tablet) 1 tab PO DAILY [facility] Last Admin: 08/09/22 08:23 Dose: Not Given Documented By: MEGHAN Non-Admin Reason: pt refused Ondansetron HCl (Ondansetron Hcl 4 Mg/2 Ml Vial) 4 mg IVPUSH Q8H PRN PRN Reason: Nausea and Vomiting Quetiapine Fumarate (Quetiapine Fumarate 25 Mg Tablet) 25 mg PO Q8H PRN PRN Reason: anxiety/restlessness Sodium Chloride (0.9 % Sodium Chloride Flush 3 Ml Syringe) [facility] Last Admin: 08/09/22 08:11 Dose: 3 ml Documented By: MEGHNA Labs 08/04/22 05:55 08/04/22 05:55 Labs: Laboratory Results - last 24 hr 08/08/22 08/08/22 08/08/22 11:34 16:38 20:01 POC Glucose 287 H 196 H 189 H 08/09/22 07:39 POC Glucose 187 H Assessment and Plan (1) Neurodegenerative cognitive impairment: Status: Acute Plan 77-year-old female with hypothyroidism, tsl-[id number] type 2 diabetes, hypertension, hyperlipidemia, paroxysmal atrial fibrillation anticoagulated with Eliquis, history of invasive ductal carcinoma of the breast, and history of uterine cancer presentd with mechanical fall, afib with rvr paroxysmal afib with rvr, resolved Continue eliquis,increase metoprolol to 75 bid with better rate control severe on echo heart rate better controlled acute on chronic diastolic chf ?po lasix hypotension, resolved restarted lower dose Enalapril lack Capacity 2/2 cognitive impairment evaluated by psych on admission, has no capacity to sign AMA or take medical decisions at this point might need reeval by psych team DM with hyperglycemia insulin hypothryoid synthroid hld statin hisotry of breast and uterine cancer outpatinet oncology follow up dvt prophylaxis Eliquis full code reason for continued hospitalization: safe dispo Time Spent With Patient Time: Total time managing care of this patient today ____ minutes. Quality Stroke Does the patient have a stroke diagnosis?: No VTE Prior VTE?: No VTE Risk Level:: Medical - moderate - high VTE Device Contraindication: Treatment Not Indicated VTE Drug Contraindication: N/A - Med Ordered
[2022-08-09 11:58] LABS: Glucose, Whole Blood 123 mg/dL (60-115)
[2022-08-09 16:08] LABS: Glucose, Whole Blood 116 mg/dL (60-115)
[2022-08-09 20:25] LABS: Glucose, Whole Blood 214 mg/dL (60-115)
[2022-08-09] MEDS: QUEtiapine Fumarate 25 MG TABLET PO (21:28)
[2022-08-09] MEDS: Atorvastatin Calcium 20 MG TABLET PO (21:28)
[2022-08-09] MEDS: Insulin Glargine,Hum.rec.anlog 100 UNIT/ML 10 ML VIAL 15 UNIT SUBCUT (21:29)
[2022-08-10 03:46] VITALS: BP 120/60; PULSE 73; RESP 17; TEMP 36.2; O2SAT 95
[2022-08-10] MEDS: Levothyroxine Sodium 112 MCG TABLET PO (05:24)
[2022-08-10 08:00] VITALS: BP 131/60; PULSE 68; RESP 20; TEMP 37; O2SAT 96
[2022-08-10] MEDS: Acetaminophen 325 MG TABLET 650 MG PO ×2 (08:24→16:17)
[2022-08-10] MEDS: Metoprolol Tartrate 25 MG TABLET 75 MG PO ×2 (08:24→22:00)
[2022-08-10] MEDS: 0.9 % Sodium Chloride Flush 3 ML SYRINGE IVFLUSH ×2 (08:24→16:19)
[2022-08-10] MEDS: Aspirin Enteric Coated 81 MG TABLET.DR PO (08:24)
[2022-08-10] MEDS: Apixaban 5 MG TABLET PO ×2 (08:25→22:00)
[2022-08-10] MEDS: Furosemide 40 MG TABLET PO (08:25)
[2022-08-10 08:29] LABS: Glucose, Whole Blood 71 mg/dL (60-115)
[2022-08-10 09:53] LABS: Creatinine Clr Calc Pharmacy 47.8; Estimated Glomerular Filt Rate > 60
--- NOTE | 2022-08-10 11:00 | P.PNIM_ITS ---
Subjective Subjective Date of Service: 08/10/22 Interval History: Seen and evaluated this morning HR better controlled BP stable Less anxious and more cooperative no other overnight events Review of Systems Review of Systems: Yes all other systems are reviewed and are negative Physical Exam Vital Signs: Vital Signs: Last Vital Signs Temp 98.6 F 08/10/22 08:00 Pulse 68 08/10/22 08:00 Resp 20 08/10/22 08:00 BP 131/60 08/10/22 08:00 Pulse Ox 96 08/10/22 08:00 O2 Del Method Room Air 08/10/22 08:00 O2 Flow Rate 2 07/27/22 22:00 BMI result Body Mass Index 29.6 Const: Other: Constitutional : Awake, interactive Neck : Normal inspection, Supple Cardiovascular : irregular irregular, no JVP, no lower extremity edema Respiratory : good bilateral air entry, no crackles, wheezes or rhonchi Gastrointestinal: soft, lax, Normal bowel sounds, Non tender Skin : Warm, Dry Neurological : Alert & oriented x2, can get easily confused, No focal deficit Objective Data Active Medications Acetaminophen (Acetaminophen 325 Mg Tablet) 650 mg PO Q6H PRN PRN Reason: Pain, Mild (Pain Scale 1-3) Last Admin: 08/10/22 08:24 Dose: 650 mg Documented By: REGINALD Apixaban (Apixaban 5 Mg Tablet) 5 mg PO BID [facility] Last Admin: 08/10/22 08:25 Dose: 5 mg Documented By: REGINALD Aspirin (Aspirin Enteric Coated 81 Mg Tablet.Dr) 81 mg PO DAILY [facility] Last Admin: 08/10/22 08:24 Dose: 81 mg Documented By: REGINALD Atorvastatin Calcium (Atorvastatin Calcium 20 Mg Tablet) 20 mg PO BEDTIME [facility] Last Admin: 08/09/22 21:28 Dose: 20 mg Documented By: MILTON Enalapril Maleate (Enalapril Maleate 10 Mg Tablet) 10 mg PO DAILY [facility]; Protocol Furosemide (Furosemide 40 Mg Tablet) 40 mg PO DAILY [facility]; Protocol Last Admin: 08/10/22 08:25 Dose: 40 mg Documented By: REGINALD Glipizide (Glipizide 5 Mg Tablet) 5 mg PO DAILY [facility] Last Admin: 08/10/22 08:32 Dose: Not Given Documented By: REGINALD Non-Admin Reason: blood sugar low Glucose (Glucose Gel 15 Gm Gel..Gram.) 15 gm PO Q15M PRN; Protocol PRN Reason: per Hypoglycemia Standing Ord. Dextrose (D10) 250 mls @ 750 mls/hr IV Q15M PRN; Protocol PRN Reason: per Hypoglycemia Standing Ord. Insulin Glargine (Insulin Glargine,Hum.Rec.Anlog 100 Unit/Ml 10 Ml Vial) 15 unit SUBCUT BEDTIME [facility] Last Admin: 08/09/22 21:29 Dose: 15 unit Documented By: MILTON Insulin Human Lispro (Insulin Lispro 100 Unit/Ml 3 Ml Vial) 0 unit SUBCUT QIDACHS [facility]; Protocol Last Admin: 08/10/22 08:17 Dose: Not Given Documented By: REGINALD Non-Admin Reason: No Insulin Coverage Levothyroxine Sodium (Levothyroxine Sodium 112 Mcg Tablet) 112 mcg PO DAILY@0600 [facility] Last Admin: 08/10/22 05:24 Dose: 112 mcg Documented By: MILTON Metformin HCl (Metformin Hcl 850 Mg Tablet) 850 mg PO BIDWM [facility] Last Admin: 08/10/22 08:17 Dose: Not Given Documented By: REGINALD Non-Admin Reason: Patient Refused Metoprolol Tartrate (Metoprolol Tartrate 25 Mg Tablet) 75 mg PO BID [facility]; Protocol Last Admin: 08/10/22 08:24 Dose: 75 mg Documented By: REGINALD Multivitamins/Vitamin C (Multivitamin Tablet) 1 tab PO DAILY [facility] Last Admin: 08/10/22 08:33 Dose: Not Given Documented By: REGINALD Non-Admin Reason: Patient Refused Ondansetron HCl (Ondansetron Hcl 4 Mg/2 Ml Vial) 4 mg IVPUSH Q8H PRN PRN Reason: Nausea and Vomiting Quetiapine Fumarate (Quetiapine Fumarate 25 Mg Tablet) 25 mg PO Q8H PRN PRN Reason: anxiety/restlessness Last Admin: 08/09/22 21:28 Dose: 25 mg Documented By: MILTON Sodium Chloride (0.9 % Sodium Chloride Flush 3 Ml Syringe) 3 ml IVFLUSH QSHIFT [facility] Last Admin: 08/10/22 08:24 Dose: 3 ml Documented By: REGINALD Labs 08/04/22 05:55 08/10/22 09:24 Labs: Laboratory Results - last 24 hr 08/09/22 08/09/22 08/09/22 11:51 15:26 20:11 Estim Creat Clear Calc Estimated GFR POC Glucose 123 H 116 H 214 H 08/10/22 08/10/22 08:03 09:24 Estim Creat Clear Calc 47.8 Estimated GFR > 60 POC Glucose 71 Assessment and Plan (1) Neurodegenerative cognitive impairment: Status: Acute (2) Atrial fibrillation with RVR: Status: Acute Plan 77-year-old female with hypothyroidism, [id number] type 2 diabetes, hypertension, hyperlipidemia, paroxysmal atrial fibrillation anticoagulated with Eliquis, history of invasive ductal carcinoma of the breast, and history of uterine cancer presentd with mechanical fall, afib with rvr paroxysmal afib with rvr, resolved Continue eliquis,increase metoprolol to 75 bid with better rate control severe on echo acute on chronic diastolic chf ?po lasix hypotension, resolved restarted lower dose Enalapril lack Capacity 2/2 cognitive impairment evaluated by psych on admission, has no capacity to sign AMA or take medical decisions at this point might need reeval by psych team DM with hyperglycemia insulin hypothryoid synthroid hld statin hisotry of breast and uterine cancer outpatinet oncology follow up dvt prophylaxis Eliquis full code reason for continued hospitalization: safe dispo Time Spent With Patient Time: Total time managing care of this patient today ____ minutes. Quality Stroke Does the patient have a stroke diagnosis?: No VTE Prior VTE?: No VTE Risk Level:: Medical - moderate - high VTE Device Contraindication: Treatment Not Indicated VTE Drug Contraindication: N/A - Med Ordered
[2022-08-10 11:17] VITALS: BP 119/60; PULSE 73; RESP 20; TEMP 36.7; O2SAT 96
[2022-08-10 12:12] LABS: Glucose, Whole Blood 342 mg/dL (60-115)
[2022-08-10] MEDS: Insulin Lispro 100 UNIT/ML 3 ML VIAL SUBCUT ×3 (12:21→22:00)
[2022-08-10 15:31] LABS: Glucose, Whole Blood 182 mg/dL (60-115)
[2022-08-10 15:47] VITALS: BP 110/59; PULSE 91; RESP 19; TEMP 35.2; O2SAT 98
[2022-08-10 19:23] VITALS: BP 115/55; PULSE 97; RESP 20; TEMP 36.6; O2SAT 95
[2022-08-10 20:06] LABS: Glucose, Whole Blood 158 mg/dL (60-115)
[2022-08-10] MEDS: Atorvastatin Calcium 20 MG TABLET PO (22:00)
[2022-08-10] MEDS: Insulin Glargine,Hum.rec.anlog 100 UNIT/ML 10 ML VIAL 15 UNIT SUBCUT (22:01)
[2022-08-10 23:11] VITALS: BP 108/61; PULSE 71; RESP 18; TEMP 36.4; O2SAT 97
[2022-08-11 03:48] VITALS: BP 131/74; PULSE 56; RESP 16; TEMP 36.2; O2SAT 100
[2022-08-11 07:31] VITALS: BP 130/80; PULSE 75; RESP 19; TEMP 36.2; O2SAT 94
[2022-08-11 07:48] LABS: Glucose, Whole Blood 71 mg/dL (60-115)
[2022-08-11] MEDS: Metoprolol Tartrate 25 MG TABLET 75 MG PO ×2 (08:52→21:40)
[2022-08-11] MEDS: Apixaban 5 MG TABLET PO ×2 (08:53→21:41)
[2022-08-11] MEDS: Aspirin Enteric Coated 81 MG TABLET.DR PO (08:53)
[2022-08-11] MEDS: Furosemide 40 MG TABLET PO (08:53)
[2022-08-11] MEDS: 0.9 % Sodium Chloride Flush 3 ML SYRINGE IVFLUSH (08:53)
--- NOTE | 2022-08-11 10:21 | P.PNIM_ITS ---
Subjective Subjective Date of Service: 08/11/22 Interval History: Seen and evaluated this morning coloring in her room, comfortable HR controlled Less anxious and more cooperative no other overnight events Review of Systems Review of Systems: Yes all other systems are reviewed and are negative Physical Exam Vital Signs: Vital Signs: Last Vital Signs Temp 97.2 F 08/11/22 07:31 Pulse 75 08/11/22 07:31 Resp 19 08/11/22 07:31 BP 130/80 08/11/22 07:31 Pulse Ox 94 08/11/22 07:31 O2 Del Method Room Air 08/11/22 07:31 O2 Flow Rate 2 07/27/22 22:00 BMI result Body Mass Index 29.6 Const: Other: Constitutional : Awake, interactive Neck : Normal inspection, Supple Cardiovascular : irregular irregular, no lower extremity edema Respiratory : not in distress, chest wall moving bilaterally Gastrointestinal: soft, lax, Non tender Skin : Warm, Dry Neurological : Alert & oriented to self and place sometimes, can get easily confused, No focal deficit Objective Data Active Medications Acetaminophen (Acetaminophen 325 Mg Tablet) 650 mg PO Q6H PRN PRN Reason: Pain, Mild (Pain Scale 1-3) Last Admin: 08/10/22 16:17 Dose: 650 mg Documented By: REGINALD Apixaban (Apixaban 5 Mg Tablet) 5 mg PO BID [facility] Last Admin: 08/11/22 08:53 Dose: 5 mg Documented By: REGINALD Aspirin (Aspirin Enteric Coated 81 Mg Tablet.) 81 mg PO DAILY [facility] Last Admin: 08/11/22 08:53 Dose: 81 mg Documented By: REGINALD Atorvastatin Calcium (Atorvastatin Calcium 20 Mg Tablet) 20 mg PO BEDTIME [facility] Last Admin: 08/10/22 22:00 Dose: 20 mg Documented By: LINDA-NIKAZEMarianna Enalapril Maleate (Enalapril Maleate 10 Mg Tablet) 10 mg PO DAILY [facility]; Protocol Furosemide (Furosemide 40 Mg Tablet) 40 mg PO DAILY [facility]; Protocol Last Admin: 08/11/22 08:53 Dose: 40 mg Documented By: REGINALD Glipizide (Glipizide 5 Mg Tablet) 5 mg PO DAILY [facility] Last Admin: 08/11/22 07:49 Dose: Not Given Documented By: REGINALD Non-Admin Reason: low blood sugar Glucose (Glucose Gel 15 Gm Gel..Gram.) 15 gm PO Q15M PRN; Protocol PRN Reason: per Hypoglycemia Standing Ord. Dextrose (D10) 250 mls @ 750 mls/hr IV Q15M PRN; Protocol PRN Reason: per Hypoglycemia Standing Ord. Insulin Glargine (Insulin Glargine,Hum.Rec.Anlog 100 Unit/Ml 10 Ml Vial) 15 unit SUBCUT BEDTIME [facility] Last Admin: 08/10/22 22:01 Dose: 15 unit Documented By: MELE Insulin Human Lispro (Insulin Lispro 100 Unit/Ml 3 Ml Vial) 0 unit SUBCUT QIDACHS [facility]; Protocol Last Admin: 08/11/22 07:48 Dose: Not Given Documented By: REGINALD Non-Admin Reason: No Insulin Coverage Levothyroxine Sodium (Levothyroxine Sodium 112 Mcg Tablet) 112 mcg PO DAILY@0600 [facility] Last Admin: 08/11/22 06:14 Dose: Not Given Documented By: MELE Non-Admin Reason: Patient Asleep Metformin HCl (Metformin Hcl 850 Mg Tablet) 850 mg PO BIDWM [facility] Last Admin: 08/11/22 07:49 Dose: Not Given Documented By: REGINALD Non-Admin Reason: Patient Refused Metoprolol Tartrate (Metoprolol Tartrate 25 Mg Tablet) 75 mg PO BID [facility]; Protocol Last Admin: 08/11/22 08:52 Dose: 75 mg Documented By: REGINALD Multivitamins/Vitamin C (Multivitamin Tablet) 1 tab PO DAILY [facility] Last Admin: 08/11/22 08:54 Dose: Not Given Documented By: REGINALD Non-Admin Reason: Patient Refused Ondansetron HCl (Ondansetron Hcl 4 Mg/2 Ml Vial) 4 mg IVPUSH Q8H PRN PRN Reason: Nausea and Vomiting Quetiapine Fumarate (Quetiapine Fumarate 25 Mg Tablet) 25 mg PO Q8H PRN PRN Reason: anxiety/restlessness Last Admin: 08/09/22 21:28 Dose: 25 mg Documented By: MILTON Sodium Chloride (0.9 % Sodium Chloride Flush 3 Ml Syringe) [facility] Admin: 08/11/22 08:53 Dose: 3 ml Documented By: REGINALD Labs 08/04/22 05:55 08/10/22 09:24 Labs: Laboratory Results - last 24 hr 08/10/22 08/10/22 08/10/22 11:19 15:15 19:53 POC Glucose 342 H 182 H 158 H 08/11/22 07:44 POC Glucose 71 Assessment and Plan (1) Neurodegenerative cognitive impairment: Status: Acute Plan 77-year-old female with hypothyroidism, [id number]-[id number] type 2 diabetes, hypertension, hyperlipidemia, paroxysmal atrial fibrillation anticoagulated with Eliquis, history of invasive ductal carcinoma of the breast, and history of uterine cancer presentd with mechanical fall, afib with rvr paroxysmal afib with rvr, resolved Continue eliquis,increase metoprolol to 75 bid with better rate control severe on echo dc Tele acute on chronic diastolic chf po lasix hypotension, resolved restarted lower dose Enalapril lack Capacity 2/2 cognitive impairment evaluated by psych on admission, has no capacity to sign AMA or take medical decisions at this point might need reeval by psych team DM with hyperglycemia insulin hypothryoid synthroid hld statin hisotry of breast and uterine cancer outpatinet oncology follow up dvt prophylaxis Eliquis full code reason for continued hospitalization: safe dispo Time Spent With Patient Time: Total time managing care of this patient today ____ minutes. Quality Stroke Does the patient have a stroke diagnosis?: No VTE Prior VTE?: No VTE Risk Level:: Medical - moderate - high VTE Device Contraindication: Treatment Not Indicated VTE Drug Contraindication: N/A - Med Ordered
[2022-08-11 11:20] VITALS: BP 141/63; PULSE 67; RESP 20; TEMP 36.5; O2SAT 97
[2022-08-11 11:48] LABS: Glucose, Whole Blood 331 mg/dL (60-115)
[2022-08-11] MEDS: Insulin Lispro 100 UNIT/ML 3 ML VIAL SUBCUT ×2 (12:23→21:40)
[2022-08-11 15:16] VITALS: BP 129/57; PULSE 64; RESP 18; TEMP 37; O2SAT 93
[2022-08-11 15:40] LABS: Glucose, Whole Blood 135 mg/dL (60-115)
[2022-08-11 19:57] VITALS: BP 117/81; PULSE 70; RESP 20; TEMP 36.9; O2SAT 97
[2022-08-11 20:26] LABS: Glucose, Whole Blood 165 mg/dL (60-115)
[2022-08-11] MEDS: Insulin Glargine,Hum.rec.anlog 100 UNIT/ML 10 ML VIAL 15 UNIT SUBCUT (21:40)
[2022-08-11] MEDS: Atorvastatin Calcium 20 MG TABLET PO (21:40)
[2022-08-11 23:35] VITALS: BP 124/56; PULSE 65; RESP 20; TEMP 36.3; O2SAT 95
[2022-08-12] VITALS (7 sets, daily range): BP systolic 105–134; BP diastolic 50–77; PULSE 56–101; RESP 17–20; TEMP 36.5–37.1; O2SAT 91–98
[2022-08-12] MEDS: Levothyroxine Sodium 112 MCG TABLET PO (06:33)
[2022-08-12 07:17] LABS: Glucose, Whole Blood 167 mg/dL (60-115)
[2022-08-12] MEDS: glipiZIDE 5 MG TABLET PO (08:43)
[2022-08-12] MEDS: 0.9 % Sodium Chloride Flush 3 ML SYRINGE IVFLUSH (08:43)
[2022-08-12] MEDS: Aspirin Enteric Coated 81 MG TABLET.DR PO (08:43)
[2022-08-12] MEDS: Insulin Lispro 100 UNIT/ML 3 ML VIAL SUBCUT ×3 (08:43→22:15)
[2022-08-12] MEDS: Metoprolol Tartrate 25 MG TABLET 75 MG PO ×2 (08:43→22:15)
[2022-08-12] MEDS: Furosemide 40 MG TABLET PO (08:43)
[2022-08-12] MEDS: Apixaban 5 MG TABLET PO ×2 (08:44→22:16)
--- NOTE | 2022-08-12 09:49 | HO.PM.IMPN ---
Subjective Subjective Date of Service: 08/12/22 Interval History: Seen this morning sitting in chair, comfortable more cooperative no other overnight events Review of Systems Review of Systems: Yes all other systems are reviewed and are negative Physical Exam Vital Signs: Vital Signs: Last Vital Signs Temp 97.7 F 08/12/22 07:36 Pulse 67 08/12/22 07:36 Resp 20 08/12/22 07:36 BP 134/76 08/12/22 07:36 Pulse Ox 93 08/12/22 07:36 O2 Del Method Room Air 08/12/22 07:36 O2 Flow Rate 2 07/27/22 22:00 BMI result Body Mass Index 29.6 Const: Other: Constitutional : Awake, interactive Neck : Normal inspection, Supple Cardiovascular : irregular irregular, no lower extremity edema Respiratory : not in distress, chest wall moving bilaterally Skin : Warm, Dry Neurological : Alert & oriented to self and place sometimes, can get easily confused, No focal deficit Objective Data Active Medications Acetaminophen (Acetaminophen 325 Mg Tablet) 650 mg PO Q6H PRN PRN Reason: Pain, Mild (Pain Scale 1-3) Last Admin: 08/10/22 16:17 Dose: 650 mg Documented By: REGINALD Apixaban (Apixaban 5 Mg Tablet) 5 mg PO BID [facility] Last Admin: 08/12/22 08:44 Dose: 5 mg Documented By: [place] Aspirin (Aspirin Enteric Coated 81 Mg Tablet.) 81 mg PO DAILY [facility] Last Admin: 08/12/22 08:43 Dose: 81 mg Documented By: [place] Atorvastatin Calcium (Atorvastatin Calcium 20 Mg Tablet) 20 mg PO BEDTIME [facility] Last Admin: 08/11/22 21:40 Dose: 20 mg Documented By: MELE Enalapril Maleate (Enalapril Maleate 10 Mg Tablet) 10 mg PO DAILY [facility]; Protocol Furosemide (Furosemide 40 Mg Tablet) 40 mg PO DAILY [facility]; Protocol Last Admin: 08/12/22 08:43 Dose: 40 mg Documented By: [place] Glipizide (Glipizide 5 Mg Tablet) 5 mg PO DAILY [facility] Last Admin: 08/12/22 08:43 Dose: 5 mg Documented By: [place] Glucose (Glucose Gel 15 Gm Gel..Gram.) 15 gm PO Q15M PRN; Protocol PRN Reason: per Hypoglycemia Standing Ord. Dextrose (D10) 250 mls @ 750 mls/hr IV Q15M PRN; Protocol PRN Reason: per Hypoglycemia Standing Ord. Insulin Glargine (Insulin Glargine,Hum.Rec.Anlog 100 Unit/Ml 10 Ml Vial) 15 unit SUBCUT BEDTIME [facility] Last Admin: 08/11/22 21:40 Dose: 15 unit Documented By: MELE Insulin Human Lispro (Insulin Lispro 100 Unit/Ml 3 Ml Vial) 0 unit SUBCUT QIDACHS [facility]; Protocol Last Admin: 08/12/22 08:43 Dose: 2 unit Documented By: [place] Levothyroxine Sodium (Levothyroxine Sodium 112 Mcg Tablet) 112 mcg PO DAILY@0600 [facility] Last Admin: 08/12/22 06:33 Dose: 112 mcg Documented By: MELE Metformin HCl (Metformin Hcl 850 Mg Tablet) 850 mg PO BIDWM [facility] Last Admin: 08/12/22 08:44 Dose: Not Given Documented By: [place] Non-Admin Reason: Patient Refused Metoprolol Tartrate (Metoprolol Tartrate 25 Mg Tablet) 75 mg PO BID [facility]; Protocol Last Admin: 08/12/22 08:43 Dose: 75 mg Documented By: [place] Multivitamins/Vitamin C (Multivitamin Tablet) 1 tab PO DAILY [facility] Last Admin: 08/12/22 08:46 Dose: Not Given Documented By: [place] Non-Admin Reason: Patient Refused Ondansetron HCl (Ondansetron Hcl 4 Mg/2 Ml Vial) 4 mg IVPUSH Q8H PRN PRN Reason: Nausea and Vomiting Quetiapine Fumarate (Quetiapine Fumarate 25 Mg Tablet) 25 mg PO Q8H PRN PRN Reason: anxiety/restlessness Last Admin: 08/09/22 21:28 Dose: 25 mg Documented By: MILTON Sodium Chloride (0.9 % Sodium Chloride Flush 3 Ml Syringe) 3 ml IVFLUSH QSHIFT [facility] Last Admin: 08/12/22 08:43 Dose: 3 ml Documented By: [place] Labs 08/04/22 05:55 08/10/22 09:24 Labs: Laboratory Results - last 24 hr 08/11/22 08/11/22 08/11/22 11:45 15:18 20:13 POC Glucose 331 H 135 H 165 H 08/12/22 07:11 POC Glucose 167 H Assessment and Plan (1) Neurodegenerative cognitive impairment: Status: Acute Plan 77-year-old female with hypothyroidism, ivn-frmtntn-skkutsbde type 2 diabetes, hypertension, hyperlipidemia, paroxysmal atrial fibrillation anticoagulated with Eliquis, history of invasive ductal carcinoma of the breast, and history of uterine cancer presentd with mechanical fall, afib with rvr paroxysmal afib with rvr, resolved Continue eliquis, metoprolol to 75 bid with better rate control severe on echo dc Tele acute on chronic diastolic chf po lasix hypotension, resolved restarted lower dose Enalapril lack Capacity 2/2 cognitive impairment evaluated by psych on admission, has no capacity to sign AMA or take medical decisions at this point might need reeval by psych team DM with hyperglycemia insulin hypothryoid synthroid hld statin hisotry of breast and uterine cancer outpatinet oncology follow up dvt prophylaxis Eliquis full code reason for continued hospitalization: safe dispo Time Spent With Patient Time: Total time managing care of this patient today ____ minutes. Quality Stroke Does the patient have a stroke diagnosis?: No VTE Prior VTE?: No VTE Risk Level:: Medical - moderate - high VTE Device Contraindication: Treatment Not Indicated VTE Drug Contraindication: N/A - Med Ordered
[2022-08-12 11:10] LABS: Glucose, Whole Blood 134 mg/dL (60-115)
--- NOTE | 2022-08-12 13:59 | MHC.CM.PN ---
EMR REVIEWED AND PER FS, MH STATES THE CASE HAS BEEN ASSIGNED TO A WORKER AND WILL TAKE A COUPLE OF DAYS FOR REVIEW. PER FS, WILL CALL AGAIN AT THAT TIME. DAUGHTER LIAM UPDATED AND SUPPORT OFFERED.
[2022-08-12 15:19] LABS: Glucose, Whole Blood 187 mg/dL (60-115)
[2022-08-12 20:00] LABS: Glucose, Whole Blood 216 mg/dL (60-115)
[2022-08-12] MEDS: Atorvastatin Calcium 20 MG TABLET PO (22:15)
[2022-08-12] MEDS: Insulin Glargine,Hum.rec.anlog 100 UNIT/ML 10 ML VIAL 15 UNIT SUBCUT (22:16)
[2022-08-13] VITALS (7 sets, daily range): BP systolic 116–137; BP diastolic 52–93; PULSE 66–95; RESP 18–20; TEMP 36.4–37; O2SAT 93–97
[2022-08-13] MEDS: Levothyroxine Sodium 112 MCG TABLET PO (05:57)
[2022-08-13 07:20] LABS: Glucose, Whole Blood 108 mg/dL (60-115)
[2022-08-13] MEDS: Furosemide 40 MG TABLET PO (09:26)
[2022-08-13] MEDS: glipiZIDE 5 MG TABLET PO (09:26)
[2022-08-13] MEDS: Aspirin Enteric Coated 81 MG TABLET.DR PO (09:26)
[2022-08-13] MEDS: Metoprolol Tartrate 25 MG TABLET 75 MG PO ×2 (09:26→22:22)
[2022-08-13] MEDS: Apixaban 5 MG TABLET PO ×2 (09:26→22:22)
[2022-08-13] MEDS: 0.9 % Sodium Chloride Flush 3 ML SYRINGE IVFLUSH ×2 (09:29→22:28)
[2022-08-13] MEDS: Nystatin Powder 15 GM BOTTLE 1 APPL TOPICAL ×2 (09:29→22:22)
[2022-08-13 11:11] LABS: Glucose, Whole Blood 175 mg/dL (60-115)
[2022-08-13 11:45] LABS: Glucose, Whole Blood 146 mg/dL (60-115)
--- NOTE | 2022-08-13 12:17 | P.PNIM_ITS ---
Subjective Subjective Date of Service: 08/13/22 Interval History: Seen this morning sitting in chair, comfortable more cooperative no other overnight events Review of Systems Review of Systems: Yes all other systems are reviewed and are negative Physical Exam Vital Signs: Vital Signs: Last Vital Signs Temp 97.9 F 08/13/22 11:34 Pulse 84 08/13/22 11:34 Resp 18 08/13/22 11:34 BP 132/64 08/13/22 11:34 Pulse Ox 97 08/13/22 11:34 O2 Del Method Room Air 08/13/22 11:34 O2 Flow Rate 2 07/27/22 22:00 BMI result Body Mass Index 29.6 Const: Other: Constitutional : Awake, interactive Neck : Normal inspection, Supple Cardiovascular : irregular irregular, no lower extremity edema Respiratory : not in distress, chest wall moving bilaterally Skin : Warm, Dry Neurological : Alert & oriented to self and place sometimes, can get easily confused, No focal deficit Objective Data Active Medications Acetaminophen (Acetaminophen 325 Mg Tablet) 650 mg PO Q6H PRN PRN Reason: Pain, Mild (Pain Scale 1-3) Last Admin: 08/10/22 16:17 Dose: 650 mg Documented By: REGINALD Apixaban (Apixaban 5 Mg Tablet) 5 mg PO BID [facility] Last Admin: 08/13/22 09:26 Dose: 5 mg Documented By: [place] Aspirin (Aspirin Enteric Coated 81 Mg Tablet.Dr) 81 mg PO DAILY [facility] Last Admin: 08/13/22 09:26 Dose: 81 mg Documented By: [place] Atorvastatin Calcium (Atorvastatin Calcium 20 Mg Tablet) 20 mg PO BEDTIME [facility] Last Admin: 08/12/22 22:15 Dose: 20 mg Documented By: MELE Enalapril Maleate (Enalapril Maleate 10 Mg Tablet) 10 mg PO DAILY [facility]; Protocol Furosemide (Furosemide 40 Mg Tablet) 40 mg PO DAILY [facility]; Protocol Last Admin: 08/13/22 09:26 Dose: 40 mg Documented By: [place] Glipizide (Glipizide 5 Mg Tablet) 5 mg PO DAILY [facility] Last Admin: 08/13/22 09:26 Dose: 5 mg Documented By: [place] Glucose (Glucose Gel 15 Gm Gel..Gram.) 15 gm PO Q15M PRN; Protocol PRN Reason: per Hypoglycemia Standing Ord. Dextrose (D10) 250 mls @ 750 mls/hr IV Q15M PRN; Protocol PRN Reason: per Hypoglycemia Standing Ord. Insulin Glargine (Insulin Glargine,Hum.Rec.Anlog 100 Unit/Ml 10 Ml Vial) 15 unit SUBCUT BEDTIME [facility] Last Admin: 08/12/22 22:16 Dose: 15 unit Documented By: MELE Insulin Human Lispro (Insulin Lispro 100 Unit/Ml 3 Ml Vial) 0 unit SUBCUT QIDACHS [facility]; Protocol Last Admin: 08/13/22 07:22 Dose: Not Given Documented By: [place] Non-Admin Reason: No Insulin Coverage Levothyroxine Sodium (Levothyroxine Sodium 112 Mcg Tablet) 112 mcg PO DAILY@0600 [facility] Last Admin: 08/13/22 05:57 Dose: 112 mcg Documented By: MELE Metformin HCl (Metformin Hcl 850 Mg Tablet) 850 mg PO BIDWM [facility] Last Admin: 08/13/22 09:28 Dose: Not Given Documented By: [place] Non-Admin Reason: Patient Refused Metoprolol Tartrate (Metoprolol Tartrate 25 Mg Tablet) 75 mg PO BID [facility]; Protocol Last Admin: 08/13/22 09:26 Dose: 75 mg Documented By: [place] Multivitamins/Vitamin C (Multivitamin Tablet) 1 tab PO DAILY [facility] Last Admin: 08/13/22 09:29 Dose: Not Given Documented By: [place] Non-Admin Reason: Patient Refused Nystatin (Nystatin Powder 15 Gm Bottle) 1 appl TOPICAL BID [facility]; Protocol Last Admin: 08/13/22 09:29 Dose: 1 appl Documented By: [place] Ondansetron HCl (Ondansetron Hcl 4 Mg/2 Ml Vial) 4 mg IVPUSH Q8H PRN PRN Reason: Nausea and Vomiting Quetiapine Fumarate (Quetiapine Fumarate 25 Mg Tablet) 25 mg PO Q8H PRN PRN Reason: anxiety/restlessness Last Admin: 08/09/22 21:28 Dose: 25 mg Documented By: MILTON Sodium Chloride (0.9 % Sodium Chloride Flush 3 Ml Syringe) 3 ml IVFLUSH QSHIFT [facility] Last Admin: 08/13/22 09:29 Dose: 3 ml Documented By: [place] Labs 08/04/22 05:55 08/10/22 09:24 Labs: Laboratory Results - last 24 hr 08/12/22 08/12/22 08/13/22 15:14 19:54 07:14 POC Glucose 187 H 216 H 108 08/13/22 08/13/22 11:08 11:41 POC Glucose 175 H 146 H Assessment and Plan (1) Neurodegenerative cognitive impairment: Status: Acute Plan 77-year-old female with hypothyroidism, [id number]-[id number] type 2 diabetes, hypertension, hyperlipidemia, paroxysmal atrial fibrillation anticoagulated with Eliquis, history of invasive ductal carcinoma of the breast, and history of uterine cancer presentd with mechanical fall, afib with rvr paroxysmal afib with rvr, resolved Continue eliquis, metoprolol to 75 bid with better rate control severe on echo dc Tele acute on chronic diastolic chf po lasix hypotension, resolved restarted lower dose Enalapril lack Capacity 2/2 cognitive impairment evaluated by psych on admission, has no capacity to sign AMA or take medical decisions at this point might need reeval by psych team DM with hyperglycemia insulin hypothryoid synthroid hld statin hisotry of breast and uterine cancer outpatinet oncology follow up dvt prophylaxis Eliquis full code reason for continued hospitalization: safe dispo Time Spent With Patient Time: Total time managing care of this patient today ____ minutes. Quality Stroke Does the patient have a stroke diagnosis?: No VTE Prior VTE?: No VTE Risk Level:: Medical - moderate - high VTE Device Contraindication: Treatment Not Indicated VTE Drug Contraindication: N/A - Med Ordered
[2022-08-13] MEDS: Acetaminophen 325 MG TABLET 650 MG PO (12:52)
[2022-08-13 16:00] LABS: Glucose, Whole Blood 306 mg/dL (60-115)
[2022-08-13] MEDS: Insulin Lispro 100 UNIT/ML 3 ML VIAL SUBCUT ×2 (16:53→22:23)
[2022-08-13 19:50] LABS: Glucose, Whole Blood 165 mg/dL (60-115)
[2022-08-13] MEDS: Atorvastatin Calcium 20 MG TABLET PO (22:22)
[2022-08-13] MEDS: Insulin Glargine,Hum.rec.anlog 100 UNIT/ML 10 ML VIAL 15 UNIT SUBCUT (22:23)
[2022-08-14] VITALS (7 sets, daily range): BP systolic 117–144; BP diastolic 51–74; PULSE 63–107; RESP 18–20; TEMP 36.3–36.9; O2SAT 95–98
[2022-08-14] MEDS: Levothyroxine Sodium 112 MCG TABLET PO (06:19)
[2022-08-14 07:23] LABS: Glucose, Whole Blood 141 mg/dL (60-115)
[2022-08-14] MEDS: Furosemide 40 MG TABLET PO (09:05)
[2022-08-14] MEDS: Apixaban 5 MG TABLET PO ×2 (09:05→21:02)
[2022-08-14] MEDS: Metoprolol Tartrate 25 MG TABLET 75 MG PO ×2 (09:05→21:02)
[2022-08-14] MEDS: glipiZIDE 5 MG TABLET PO (09:05)
[2022-08-14] MEDS: Aspirin Enteric Coated 81 MG TABLET.DR PO (09:05)
--- NOTE | 2022-08-14 11:31 | HO.PM.IMPN ---
Subjective Subjective Date of Service: 08/14/22 Interval History: no complaints Physical Exam Vital Signs: Vital Signs: Last Vital Signs Temp 98.1 F 08/14/22 11:18 Pulse 63 08/14/22 11:18 Resp 20 08/14/22 11:18 BP 139/63 08/14/22 11:18 Pulse Ox 97 08/14/22 11:18 O2 Del Method Room Air 08/14/22 11:18 O2 Flow Rate 2 07/27/22 22:00 BMI result Body Mass Index 29.6 Const: Other: Constitutional : Awake, interactive Neck : Normal inspection, Supple Cardiovascular : irregular irregular, no lower extremity edema Respiratory : not in distress, chest wall moving bilaterally Skin : Warm, Dry Neurological : Alert & oriented to self and place sometimes, can get easily confused, No focal deficit Objective Data Active Medications Acetaminophen (Acetaminophen 325 Mg Tablet) 650 mg PO Q6H PRN PRN Reason: Pain, Mild (Pain Scale 1-3) Last Admin: 08/13/22 12:52 Dose: 650 mg Documented By: [place] Apixaban (Apixaban 5 Mg Tablet) 5 mg PO BID [facility] Last Admin: 08/14/22 09:05 Dose: 5 mg Documented By: MICHAELA Aspirin (Aspirin Enteric Coated 81 Mg Tablet.) 81 mg PO DAILY [facility] Last Admin: 08/14/22 09:05 Dose: 81 mg Documented By: MICHAELA Atorvastatin Calcium (Atorvastatin Calcium 20 Mg Tablet) 20 mg PO BEDTIME [facility] Last Admin: 08/13/22 22:22 Dose: 20 mg Documented By: HANNAH Enalapril Maleate (Enalapril Maleate 10 Mg Tablet) 10 mg PO DAILY [facility]; Protocol Furosemide (Furosemide 40 Mg Tablet) 40 mg PO DAILY [facility]; Protocol Last Admin: 08/14/22 09:05 Dose: 40 mg Documented By: MICHAELA Glipizide (Glipizide 5 Mg Tablet) 5 mg PO DAILY [facility] Last Admin: 08/14/22 09:05 Dose: 5 mg Documented By: MICHAELA Glucose (Glucose Gel 15 Gm Gel..Gram.) 15 gm PO Q15M PRN; Protocol PRN Reason: per Hypoglycemia Standing Ord. Dextrose (D10) 250 mls @ 750 mls/hr IV Q15M PRN; Protocol PRN Reason: per Hypoglycemia Standing Ord. Insulin Glargine (Insulin Glargine,Hum.Rec.Anlog 100 Unit/Ml 10 Ml Vial) 15 unit SUBCUT BEDTIME [facility] Last Admin: 08/13/22 22:23 Dose: 15 unit Documented By: HANNAH Insulin Human Lispro (Insulin Lispro 100 Unit/Ml 3 Ml Vial) 0 unit SUBCUT QIDACHS [facility]; Protocol Last Admin: 08/14/22 07:24 Dose: Not Given Documented By: MICHAELA Non-Admin Reason: See Note Levothyroxine Sodium (Levothyroxine Sodium 112 Mcg Tablet) 112 mcg PO DAILY@0600 [facility] Last Admin: 08/14/22 06:19 Dose: 112 mcg Documented By: HANNAH Metformin HCl (Metformin Hcl 850 Mg Tablet) 850 mg PO BIDWM [facility] Last Admin: 08/14/22 09:05 Dose: Not Given Documented By: MICHAELA Non-Admin Reason: Patient Refused Metoprolol Tartrate (Metoprolol Tartrate 25 Mg Tablet) 75 mg PO BID [facility]; Protocol Last Admin: 08/14/22 09:05 Dose: 75 mg Documented By: MICHAELA Multivitamins/Vitamin C (Multivitamin Tablet) 1 tab PO DAILY [facility] Last Admin: 08/14/22 09:05 Dose: Not Given Documented By: MICHAELA Non-Admin Reason: Patient Refused Nystatin (Nystatin Powder 15 Gm Bottle) 1 appl TOPICAL BID [facility]; Protocol Last Admin: 08/14/22 09:07 Dose: Not Given Documented By: MICHAELA Non-Admin Reason: Patient Refused Ondansetron HCl (Ondansetron Hcl 4 Mg/2 Ml Vial) 4 mg IVPUSH Q8H PRN PRN Reason: Nausea and Vomiting Quetiapine Fumarate (Quetiapine Fumarate 25 Mg Tablet) 25 mg PO Q8H PRN PRN Reason: anxiety/restlessness Last Admin: 08/09/22 21:28 Dose: 25 mg Documented By: MILTON Sodium Chloride (0.9 % Sodium Chloride Flush 3 Ml Syringe) 3 ml IVFLUSH QSHIFT [facility] Last Admin: 08/14/22 07:13 Dose: Not Given Documented By: MICHAELA Non-Admin Reason: See Note Labs 08/04/22 05:55 08/10/22 09:24 Labs: Laboratory Results - last 24 hr 08/13/22 08/13/22 08/13/22 11:41 15:53 19:45 POC Glucose 146 H 306 H 165 H 08/14/22 07:19 POC Glucose 141 H Assessment and Plan (1) Neurodegenerative cognitive impairment: Status: Acute Plan 77-year-old female with hypothyroidism, [id number] type 2 diabetes, hypertension, hyperlipidemia, paroxysmal atrial fibrillation anticoagulated with Eliquis, history of invasive ductal carcinoma of the breast, and history of uterine cancer presentd with mechanical fall, afib with rvr paroxysmal afib with rvr, resolved Continue eliquis, metoprolol to 75 bid with better rate control severe on echo dc Tele acute on chronic diastolic chf po lasix hypotension, resolved restarted lower dose Enalapril lack Capacity 2/2 cognitive impairment evaluated by psych on admission, has no capacity to sign AMA or take medical decisions at this point might need reeval by psych team DM with hyperglycemia insulin hypothryoid synthroid hld statin hisotry of breast and uterine cancer outpatinet oncology follow up dvt prophylaxis Eliquis full code reason for continued hospitalization: safe dispo Time Spent With Patient Time: Total time managing care of this patient today ____ minutes. Quality Stroke Does the patient have a stroke diagnosis?: No VTE Prior VTE?: No VTE Risk Level:: Medical - moderate - high VTE Device Contraindication: Treatment Not Indicated VTE Drug Contraindication: N/A - Med Ordered
[2022-08-14 11:50] LABS: Glucose, Whole Blood 204 mg/dL (60-115)
[2022-08-14] MEDS: Insulin Lispro 100 UNIT/ML 3 ML VIAL SUBCUT ×3 (12:16→21:03)
--- NOTE | 2022-08-14 14:26 | MHC.CM.PN ---
CM DISCUSSED CASE W/FS, PER FS SHE RECEIVED A LETTER FROM REQUESTING SEVERAL ADDITIONAL ITEMS INCLUDING MONTHLY PREMIUM BILLS FROM [facility], LIFE INSURANCE FACE AND CURRENT [employer] VALUES, BANK STATEMENTS FROM OR LETTER STATING ACCOUNT WAS CLOSED FROM AN OLD [employer] BANK ACCT.. PT ALSO OWNS HER HOME. PER FS DTR HAS CONTACTED A INSOLE CEMENTER TO APPLY FOR CONSERVATORSHIP. SNF'S UNABLE TO TAKE PT PRIOR TO JUWAN BEING PENDING, CM WILL CONT TO FOLLOW.
[2022-08-14 16:43] LABS: Glucose, Whole Blood 169 mg/dL (60-115)
[2022-08-14 20:21] LABS: Glucose, Whole Blood 155 mg/dL (60-115)
[2022-08-14] MEDS: Atorvastatin Calcium 20 MG TABLET PO (21:02)
[2022-08-14] MEDS: Insulin Glargine,Hum.rec.anlog 100 UNIT/ML 10 ML VIAL 15 UNIT SUBCUT (21:03)
[2022-08-14] MEDS: Nystatin Powder 15 GM BOTTLE 1 APPL TOPICAL (21:04)
[2022-08-14] MEDS: 0.9 % Sodium Chloride Flush 3 ML SYRINGE IVFLUSH (21:04)
[2022-08-15] VITALS (8 sets, daily range): BP systolic 118–149; BP diastolic 60–86; PULSE 68–108; RESP 18–20; TEMP 36.3–37; O2SAT 94–98
[2022-08-15] MEDS: Levothyroxine Sodium 112 MCG TABLET PO (05:41)
[2022-08-15 07:13] LABS: Glucose, Whole Blood 59 mg/dL (60-115)
[2022-08-15 08:05] LABS: Glucose, Whole Blood 114 mg/dL (60-115)
[2022-08-15] MEDS: Apixaban 5 MG TABLET PO ×2 (08:28→21:24)
[2022-08-15] MEDS: glipiZIDE 5 MG TABLET PO (08:29)
[2022-08-15] MEDS: Metoprolol Tartrate 25 MG TABLET 75 MG PO ×2 (08:29→21:24)
[2022-08-15] MEDS: Furosemide 40 MG TABLET PO (08:29)
[2022-08-15] MEDS: Aspirin Enteric Coated 81 MG TABLET.DR PO (08:29)
[2022-08-15] MEDS: Nystatin Powder 15 GM BOTTLE 1 APPL TOPICAL ×2 (08:31→21:26)
--- NOTE | 2022-08-15 09:07 | HO.PM.IMPN ---
Subjective Subjective Date of Service: 08/15/22 Interval History: hypoglycemic this am Physical Exam Vital Signs: Vital Signs: Last Vital Signs Temp 97.6 F 08/15/22 07:21 Pulse 69 08/15/22 07:21 Resp 20 08/15/22 07:21 BP 135/64 08/15/22 07:21 Pulse Ox 97 08/15/22 07:21 O2 Del Method Room Air 08/15/22 07:21 O2 Flow Rate 2 07/27/22 22:00 BMI result Body Mass Index 29.6 Const: Other: Constitutional : Awake, interactive Neck : Normal inspection, Supple Cardiovascular : irregular irregular, no lower extremity edema Respiratory : not in distress, chest wall moving bilaterally Skin : Warm, Dry Neurological : Alert & oriented to self and place sometimes, can get easily confused, No focal deficit Objective Data Active Medications Acetaminophen (Acetaminophen 325 Mg Tablet) 650 mg PO Q6H PRN PRN Reason: Pain, Mild (Pain Scale 1-3) Last Admin: 08/13/22 12:52 Dose: 650 mg Documented By: [place] Apixaban (Apixaban 5 Mg Tablet) 5 mg PO BID [facility] Last Admin: 08/15/22 08:28 Dose: 5 mg Documented By: MICHAELA Aspirin (Aspirin Enteric Coated 81 Mg Tablet.) 81 mg PO DAILY [facility] Last Admin: 08/15/22 08:29 Dose: 81 mg Documented By: MICHAELA Atorvastatin Calcium (Atorvastatin Calcium 20 Mg Tablet) 20 mg PO BEDTIME [facility] Last Admin: 08/14/22 21:02 Dose: 20 mg Documented By: ANNIE Enalapril Maleate (Enalapril Maleate 10 Mg Tablet) 10 mg PO DAILY [facility]; Protocol Furosemide (Furosemide 40 Mg Tablet) 40 mg PO DAILY [facility]; Protocol Last Admin: 08/15/22 08:29 Dose: 40 mg Documented By: MICHAELA Glipizide (Glipizide 5 Mg Tablet) 5 mg PO DAILY [facility] Last Admin: 08/15/22 08:29 Dose: 5 mg Documented By: MICHAELA Glucose (Glucose Gel 15 Gm Gel..Gram.) 15 gm PO Q15M PRN; Protocol PRN Reason: per Hypoglycemia Standing Ord. Dextrose (D10) 250 mls @ 750 mls/hr IV Q15M PRN; Protocol PRN Reason: per Hypoglycemia Standing Ord. Insulin Glargine (Insulin Glargine,Hum.Rec.Anlog 100 Unit/Ml 10 Ml Vial) 15 unit SUBCUT BEDTIME [facility] Last Admin: 08/14/22 21:03 Dose: 15 unit Documented By: ANNIE Insulin Human Lispro (Insulin Lispro 100 Unit/Ml 3 Ml Vial) 0 unit SUBCUT QIDACHS [facility]; Protocol Last Admin: 08/15/22 07:11 Dose: Not Given Documented By: MICHAELA Non-Admin Reason: See Note Levothyroxine Sodium (Levothyroxine Sodium 112 Mcg Tablet) 112 mcg PO DAILY@0600 [facility] Last Admin: 08/15/22 05:41 Dose: 112 mcg Documented By: ANNIE Metformin HCl (Metformin Hcl 850 Mg Tablet) 850 mg PO BIDWM [facility] Last Admin: 08/15/22 07:07 Dose: Not Given Documented By: MICHAELA Non-Admin Reason: See Note Metoprolol Tartrate (Metoprolol Tartrate 25 Mg Tablet) 75 mg PO BID [facility]; Protocol Last Admin: 08/15/22 08:29 Dose: 75 mg Documented By: MICHAELA Multivitamins/Vitamin C (Multivitamin Tablet) 1 tab PO DAILY [facility] Last Admin: 08/15/22 08:32 Dose: Not Given Documented By: MICHAELA Non-Admin Reason: Patient Refused Nystatin (Nystatin Powder 15 Gm Bottle) 1 appl TOPICAL BID [facility]; Protocol Last Admin: 08/15/22 08:31 Dose: 1 appl Documented By: MICHAELA Ondansetron HCl (Ondansetron Hcl 4 Mg/2 Ml Vial) 4 mg IVPUSH Q8H PRN PRN Reason: Nausea and Vomiting Quetiapine Fumarate (Quetiapine Fumarate 25 Mg Tablet) 25 mg PO Q8H PRN PRN Reason: anxiety/restlessness Last Admin: 08/09/22 21:28 Dose: 25 mg Documented By: MILTON Sodium Chloride (0.9 % Sodium Chloride Flush 3 Ml Syringe) 3 ml IVFLUSH QSHIFT [facility] Last Admin: 08/15/22 07:06 Dose: Not Given Documented By: MICHAELA Non-Admin Reason: See Note Labs 08/04/22 05:55 08/10/22 09:24 Labs: Laboratory Results - last 24 hr 08/14/22 08/14/22 08/14/22 11:20 16:25 20:15 POC Glucose 204 H 169 H 155 H 08/15/22 08/15/22 07:10 08:02 POC Glucose 59 L* 114 Assessment and Plan (1) Neurodegenerative cognitive impairment: Status: Acute Plan 77-year-old female with hypothyroidism, [id number] type 2 diabetes, hypertension, hyperlipidemia, paroxysmal atrial fibrillation anticoagulated with Eliquis, history of invasive ductal carcinoma of the breast, and history of uterine cancer presentd with mechanical fall, afib with rvr paroxysmal afib with rvr, resolved Continue eliquis, metoprolol to 75 bid with better rate control severe on echo dc Tele acute on chronic diastolic chf po lasix hypotension, resolved restarted lower dose Enalapril lack Capacity 2/2 cognitive impairment evaluated by psych on admission, has no capacity to sign AMA or take medical decisions at this point might need reeval by psych team DM with hyperglycemia and hypoglycemia insulin lantus decreased from 15 units to 10units at bedtime hypothryoid synthroid hld statin hisotry of breast and uterine cancer outpatinet oncology follow up dvt prophylaxis Eliquis full code reason for continued hospitalization: safe dispo Time Spent With Patient Time: Total time managing care of this patient today ____ minutes. Quality Stroke Does the patient have a stroke diagnosis?: No VTE Prior VTE?: No VTE Risk Level:: Medical - moderate - high VTE Device Contraindication: Treatment Not Indicated VTE Drug Contraindication: N/A - Med Ordered
[2022-08-15 11:24] LABS: Glucose, Whole Blood 187 mg/dL (60-115)
[2022-08-15] MEDS: Insulin Lispro 100 UNIT/ML 3 ML VIAL SUBCUT ×2 (11:44→21:25)
--- NOTE | 2022-08-15 14:42 | PC.NURSE ---
Addendum entered by Laurent Palmer RN 08/15/22 14:43: pt hypoglycemic this AM, pt A&Ox3. Juice was given and POC WNL afterwards. was informed. Original Note: Pt stated she would like to go home within the next couple of days and wants to speak to SW. case management informed and spoke with pt.
[2022-08-15 15:50] LABS: Glucose, Whole Blood 140 mg/dL (60-115)
[2022-08-15 20:45] LABS: Glucose, Whole Blood 241 mg/dL (60-115)
[2022-08-15] MEDS: Atorvastatin Calcium 20 MG TABLET PO (21:24)
[2022-08-15] MEDS: Insulin Glargine,Hum.rec.anlog 100 UNIT/ML 10 ML VIAL 10 UNIT SUBCUT (21:24)
[2022-08-15] MEDS: 0.9 % Sodium Chloride Flush 3 ML SYRINGE IVFLUSH (21:32)
[2022-08-16] VITALS (7 sets, daily range): BP systolic 112–141; BP diastolic 55–79; PULSE 67–104; RESP 15–20; TEMP 36.4–37; O2SAT 93–99
[2022-08-16] MEDS: Levothyroxine Sodium 112 MCG TABLET PO (05:59)
[2022-08-16 07:15] LABS: Glucose, Whole Blood 172 mg/dL (60-115)
[2022-08-16] MEDS: Apixaban 5 MG TABLET PO ×2 (08:15→20:48)
[2022-08-16] MEDS: Furosemide 40 MG TABLET PO (08:15)
[2022-08-16] MEDS: Metoprolol Tartrate 25 MG TABLET 75 MG PO ×2 (08:15→20:48)
[2022-08-16] MEDS: glipiZIDE 5 MG TABLET PO (08:15)
[2022-08-16] MEDS: Aspirin Enteric Coated 81 MG TABLET.DR PO (08:15)
[2022-08-16] MEDS: Nystatin Powder 15 GM BOTTLE 1 APPL TOPICAL ×2 (08:16→20:51)
[2022-08-16] MEDS: 0.9 % Sodium Chloride Flush 3 ML SYRINGE IVFLUSH ×3 (08:16→23:56)
--- NOTE | 2022-08-16 09:27 | P.PNIM_ITS ---
Subjective Subjective Date of Service: 08/16/22 Interval History: no complaints Physical Exam Vital Signs: Vital Signs: Last Vital Signs Temp 98.1 F 08/16/22 07:41 Pulse 67 08/16/22 07:41 Resp 20 08/16/22 07:41 BP 112/55 L 08/16/22 07:41 Pulse Ox 97 08/16/22 07:41 O2 Del Method Room Air 08/16/22 07:41 O2 Flow Rate 2 07/27/22 22:00 BMI result Body Mass Index 29.6 Const: Other: Constitutional : Awake, interactive Neck : Normal inspection, Supple Cardiovascular : irregular irregular, no lower extremity edema Respiratory : not in distress, chest wall moving bilaterally Skin : Warm, Dry Neurological : Alert & oriented to self and place sometimes, can get easily confused, No focal deficit Objective Data Active Medications Acetaminophen (Acetaminophen 325 Mg Tablet) 650 mg PO Q6H PRN PRN Reason: Pain, Mild (Pain Scale 1-3) Last Admin: 08/13/22 12:52 Dose: 650 mg Documented By: [place] Apixaban (Apixaban 5 Mg Tablet) 5 mg PO BID [facility] Last Admin: 08/16/22 08:15 Dose: 5 mg Documented By: VERONICA Aspirin (Aspirin Enteric Coated 81 Mg Tablet.Dr) 81 mg PO DAILY [facility] Last Admin: 08/16/22 08:15 Dose: 81 mg Documented By: VERONICA Atorvastatin Calcium (Atorvastatin Calcium 20 Mg Tablet) 20 mg PO BEDTIME [facility] Last Admin: 08/15/22 21:24 Dose: 20 mg Documented By: ANNIE Enalapril Maleate (Enalapril Maleate 10 Mg Tablet) 10 mg PO DAILY [facility]; Protocol Furosemide (Furosemide 40 Mg Tablet) 40 mg PO DAILY [facility]; Protocol Last Admin: 08/16/22 08:15 Dose: 40 mg Documented By: VERONICA Glipizide (Glipizide 5 Mg Tablet) 5 mg PO DAILY [facility] Last Admin: 08/16/22 08:15 Dose: 5 mg Documented By: VERONICA Glucose (Glucose Gel 15 Gm Gel..Gram.) 15 gm PO Q15M PRN; Protocol PRN Reason: per Hypoglycemia Standing Ord. Dextrose (D10) 250 mls @ 750 mls/hr IV Q15M PRN; Protocol PRN Reason: per Hypoglycemia Standing Ord. Insulin Glargine (Insulin Glargine,Hum.Rec.Anlog 100 Unit/Ml 10 Ml Vial) 10 unit SUBCUT BEDTIME [facility] Last Admin: 08/15/22 21:24 Dose: 10 unit Documented By: ANNIE Insulin Human Lispro (Insulin Lispro 100 Unit/Ml 3 Ml Vial) 0 unit SUBCUT QIDACHS [facility]; Protocol Last Admin: 08/16/22 08:16 Dose: Not Given Documented By: VERONICA Non-Admin Reason: Patient Refused Levothyroxine Sodium (Levothyroxine Sodium 112 Mcg Tablet) 112 mcg PO DA ADELSO@0600 [facility] Last Admin: 08/16/22 05:59 Dose: 112 mcg Documented By: ANNIE Metformin HCl (Metformin Hcl 850 Mg Tablet) 850 mg PO BIDWM [facility] Last Admin: 08/16/22 08:18 Dose: Not Given Documented By: VERONICA Non-Admin Reason: Patient Refused Metoprolol Tartrate (Metoprolol Tartrate 25 Mg Tablet) 75 mg PO BID [facility]; Protocol Last Admin: 08/16/22 08:15 Dose: 75 mg Documented By: VERONICA Multivitamins/Vitamin C (Multivitamin Tablet) 1 tab PO DAILY [facility] Last Admin: 08/16/22 08:19 Dose: Not Given Documented By: VERONICA Non-Admin Reason: Patient Refused Nystatin (Nystatin Powder 15 Gm Bottle) 1 appl TOPICAL BID [facility]; Protocol Last Admin: 08/16/22 08:16 Dose: 1 appl Documented By: VERONICA Ondansetron HCl (Ondansetron Hcl 4 Mg/2 Ml Vial) 4 mg IVPUSH Q8H PRN PRN Reason: Nausea and Vomiting Quetiapine Fumarate (Quetiapine Fumarate 25 Mg Tablet) 25 mg PO Q8H PRN PRN Reason: anxiety/restlessness Last Admin: 08/09/22 21:28 Dose: 25 mg Documented By: MILTON Sodium Chloride (0.9 % Sodium Chloride Flush 3 Ml Syringe) 3 ml IVFLUSH QSHIFT [facility] Last Admin: 08/16/22 08:16 Dose: 3 ml Documented By: VERONICA Labs 08/04/22 05:55 08/10/22 09:24 Labs: Laboratory Results - last 24 hr 08/15/22 08/15/22 08/15/22 11:09 15:47 19:54 POC Glucose 187 H 140 H 241 H 08/16/22 07:11 POC Glucose 172 H Assessment and Plan (1) Neurodegenerative cognitive impairment: Status: Acute Plan 77-year-old female with hypothyroidism, [id number] type 2 diabetes, hypertension, hyperlipidemia, paroxysmal atrial fibrillation anticoagulated with Eliquis, history of invasive ductal carcinoma of the breast, and history of uterine cancer presentd with mechanical fall, afib with rvr paroxysmal afib with rvr, resolved Continue eliquis, metoprolol to 75 bid with better rate control severe on echo acute on chronic diastolic chf po lasix hypotension, resolved restarted lower dose Enalapril lack Capacity 2/2 cognitive impairment evaluated by psych on admission, has no capacity to sign AMA or take medical decisions at this point might need reeval by psych team DM with hyperglycemia and hypoglycemia insulin lantus decreased from 15 units to 10units at bedtime hypothryoid synthroid hld statin hisotry of breast and uterine cancer outpatinet oncology follow up dvt prophylaxis Eliquis full code reason for continued hospitalization: safe dispo Time Spent With Patient Time: Total time managing care of this patient today ____ minutes. Quality Stroke Does the patient have a stroke diagnosis?: No VTE Prior VTE?: No VTE Risk Level:: Medical - moderate - high VTE Device Contraindication: Treatment Not Indicated VTE Drug Contraindication: N/A - Med Ordered
[2022-08-16 11:16] LABS: Glucose, Whole Blood 219 mg/dL (60-115)
[2022-08-16] MEDS: Insulin Lispro 100 UNIT/ML 3 ML VIAL SUBCUT ×2 (11:56→17:08)
--- NOTE | 2022-08-16 12:28 | MHC.CM.PN ---
EMR REVIEWED AND PER MD ROUNDS, PT IS AWAITING LTC PLACEMENT PENDING COMPLETION OF [facility]/DETERMINATION. PER DAUGHTER, SHE NEEDS TO SUBMIT FURTHER PAPERWORK TO , SHE IS AWARE THIS IS TIME SENSITIVE. CM WILL CONTINUE TO FOLLOW FOR DC PLAN
[2022-08-16 15:47] LABS: Glucose, Whole Blood 224 mg/dL (60-115)
[2022-08-16 19:55] LABS: Glucose, Whole Blood 146 mg/dL (60-115)
[2022-08-16] MEDS: Atorvastatin Calcium 20 MG TABLET PO (20:48)
[2022-08-16] MEDS: Insulin Glargine,Hum.rec.anlog 100 UNIT/ML 10 ML VIAL 10 UNIT SUBCUT (20:49)
[2022-08-17 04:30] VITALS: BP 123/58; PULSE 68; RESP 15; TEMP 36.6; O2SAT 97
[2022-08-17] MEDS: Levothyroxine Sodium 112 MCG TABLET PO (06:17)
[2022-08-17 07:07] VITALS: BP 112/61; PULSE 68; RESP 18; TEMP 36.9; O2SAT 98
[2022-08-17 07:39] LABS: Glucose, Whole Blood 145 mg/dL (60-115)
[2022-08-17] MEDS: Metoprolol Tartrate 25 MG TABLET 75 MG PO ×2 (08:33→21:18)
[2022-08-17] MEDS: glipiZIDE 5 MG TABLET PO (08:33)
[2022-08-17] MEDS: 0.9 % Sodium Chloride Flush 3 ML SYRINGE IVFLUSH ×2 (08:33→21:22)
[2022-08-17] MEDS: Apixaban 5 MG TABLET PO ×2 (08:33→21:18)
[2022-08-17] MEDS: Aspirin Enteric Coated 81 MG TABLET.DR PO (08:33)
[2022-08-17] MEDS: metFORMIN HCl 850 MG TABLET PO (08:33)
[2022-08-17] MEDS: Furosemide 40 MG TABLET PO (08:33)
[2022-08-17] MEDS: Nystatin Powder 15 GM BOTTLE 1 APPL TOPICAL ×2 (08:34→21:23)
--- NOTE | 2022-08-17 09:18 | HO.PM.IMPN ---
Subjective Subjective Date of Service: 08/17/22 Interval History: no complaints Physical Exam Vital Signs: Vital Signs: Last Vital Signs Temp 98.5 F 08/17/22 07:07 Pulse 68 08/17/22 07:07 Resp 18 08/17/22 07:07 BP 112/61 08/17/22 07:07 Pulse Ox 98 08/17/22 07:07 O2 Del Method Room Air 08/17/22 07:07 O2 Flow Rate 2 07/27/22 22:00 BMI result Body Mass Index 29.6 Const: Other: Constitutional : Awake, interactive Neck : Normal inspection, Supple Cardiovascular : irregular irregular, no lower extremity edema Respiratory : not in distress, chest wall moving bilaterally Skin : Warm, Dry Neurological : Alert & oriented to self and place sometimes, can get easily confused, No focal deficit Objective Data Active Medications Acetaminophen (Acetaminophen 325 Mg Tablet) 650 mg PO Q6H PRN PRN Reason: Pain, Mild (Pain Scale 1-3) Last Admin: 08/13/22 12:52 Dose: 650 mg Documented By: [place] Apixaban (Apixaban 5 Mg Tablet) 5 mg PO BID [facility] Last Admin: 08/17/22 08:33 Dose: 5 mg Documented By: JB Aspirin (Aspirin Enteric Coated 81 Mg Tablet.Dr) 81 mg PO DAILY [facility] Last Admin: 08/17/22 08:33 Dose: 81 mg Documented By: JB Atorvastatin Calcium (Atorvastatin Calcium 20 Mg Tablet) 20 mg PO BEDTIME [facility] Last Admin: 08/16/22 20:48 Dose: 20 mg Documented By: ELÍAS Enalapril Maleate (Enalapril Maleate 10 Mg Tablet) 10 mg PO DAILY [facility]; Protocol Furosemide (Furosemide 40 Mg Tablet) 40 mg PO DAILY [facility]; Protocol Last Admin: 08/17/22 08:33 Dose: 40 mg Documented By: JB Glipizide (Glipizide 5 Mg Tablet) 5 mg PO DAILY [facility] Last Admin: 08/17/22 08:33 Dose: 5 mg Documented By: JB Glucose (Glucose Gel 15 Gm Gel..Gram.) 15 gm PO Q15M PRN; Protocol PRN Reason: per Hypoglycemia Standing Ord. Dextrose (D10) 250 mls @ 750 mls/hr IV Q15M PRN; Protocol PRN Reason: per Hypoglycemia Standing Ord. Insulin Glargine (Insulin Glargine,Hum.Rec.Anlog 100 Unit/Ml 10 Ml Vial) 10 unit SUBCUT BEDTIME [facility] Last Admin: 08/16/22 20:49 Dose: 10 unit Documented By: ELÍAS Insulin Human Lispro (Insulin Lispro 100 Unit/Ml 3 Ml Vial) 0 unit SUBCUT QIDACHS [facility]; Protocol Last Admin: 08/17/22 07:43 Dose: Not Given Documented By: JB Non-Admin Reason: No Insulin Coverage Levothyroxine Sodium (Levothyroxine Sodium 112 Mcg Tablet) 112 mcg PO DAILY@0600 [facility] Last Admin: 08/17/22 06:17 Dose: 112 mcg Documented By: GUILLERMINA Metformin HCl (Metformin Hcl 850 Mg Tablet) 850 mg PO BIDWM [facility] Last Admin: 08/17/22 08:33 Dose: 850 mg Documented By: JB Metoprolol Tartrate (Metoprolol Tartrate 25 Mg Tablet) 75 mg PO BID [facility]; Protocol Last Admin: 08/17/22 08:33 Dose: 75 mg Documented By: JB Multivitamins/Vitamin C (Multivitamin Tablet) 1 tab PO DAILY [facility] Last Admin: 08/17/22 08:34 Dose: Not Given Documented By: JB Non-Admin Reason: Patient Refused Nystatin (Nystatin Powder 15 Gm Bottle) 1 appl TOPICAL BID [facility]; Protocol Last Admin: 08/17/22 08:34 Dose: 1 appl Documented By: JB Ondansetron HCl (Ondansetron Hcl 4 Mg/2 Ml Vial) 4 mg IVPUSH Q8H PRN PRN Reason: Nausea and Vomiting Quetiapine Fumarate (Quetiapine Fumarate 25 Mg Tablet) 25 mg PO Q8H PRN PRN Reason: anxiety/restlessness Last Admin: 08/09/22 21:28 Dose: 25 mg Documented By: MILTON Sodium Chloride (0.9 % Sodium Chloride Flush 3 Ml Syringe) 3 ml IVFLUSH QSHIFT [facility] Last Admin: 08/17/22 08:33 Dose: 3 ml Documented By: JB Labs 08/04/22 05:55 08/10/22 09:24 Labs: Laboratory Results - last 24 hr 08/16/22 08/16/22 08/16/22 11:12 15:42 19:51 POC Glucose 219 H 224 H 146 H 08/17/22 07:11 POC Glucose 145 H Assessment and Plan (1) Neurodegenerative cognitive impairment: Status: Acute Plan 77-year-old female with hypothyroidism, [id number] type 2 diabetes, hypertension, hyperlipidemia, paroxysmal atrial fibrillation anticoagulated with Eliquis, history of invasive ductal carcinoma of the breast, and history of uterine cancer presentd with mechanical fall, afib with rvr paroxysmal afib with rvr, resolved Continue eliquis, metoprolol to 75 bid with better rate control severe on echo acute on chronic diastolic chf po lasix hypotension, resolved restarted lower dose Enalapril lack Capacity 2/2 cognitive impairment evaluated by psych on admission, has no capacity to sign AMA or take medical decisions at this point might need reeval by psych team DM with hyperglycemia and hypoglycemia insulin lantus decreased from 15 units to 10units at bedtime hypothryoid synthroid hld statin hisotry of breast and uterine cancer outpatinet oncology follow up dvt prophylaxis Eliquis full code reason for continued hospitalization: safe dispo Time Spent With Patient Time: Total time managing care of this patient today ____ minutes. Quality Stroke Does the patient have a stroke diagnosis?: No VTE Prior VTE?: No VTE Risk Level:: Medical - moderate - high VTE Device Contraindication: Treatment Not Indicated VTE Drug Contraindication: N/A - Med Ordered
[2022-08-17 11:29] LABS: Glucose, Whole Blood 166 mg/dL (60-115)
[2022-08-17 11:34] VITALS: BP 126/74; PULSE 78; RESP 18; TEMP 36.7; O2SAT 99
[2022-08-17] MEDS: Insulin Lispro 100 UNIT/ML 3 ML VIAL SUBCUT ×3 (11:49→21:18)
[2022-08-17 15:33] VITALS: BP 112/68; PULSE 112; RESP 17; TEMP 35.9; O2SAT 96
[2022-08-17 15:46] LABS: Glucose, Whole Blood 190 mg/dL (60-115)
[2022-08-17 19:26] VITALS: BP 144/80; PULSE 122; RESP 17; TEMP 36.6; O2SAT 93
[2022-08-17 19:51] LABS: Glucose, Whole Blood 239 mg/dL (60-115)
[2022-08-17] MEDS: Atorvastatin Calcium 20 MG TABLET PO (21:18)
[2022-08-17] MEDS: Insulin Glargine,Hum.rec.anlog 100 UNIT/ML 10 ML VIAL 10 UNIT SUBCUT (21:19)
[2022-08-17 23:16] VITALS: BP 127/59; PULSE 95; RESP 17; TEMP 36.8; O2SAT 95
[2022-08-18 04:00] VITALS: BP 115/60; PULSE 73; RESP 17; TEMP 36.6; O2SAT 92
[2022-08-18] MEDS: Levothyroxine Sodium 112 MCG TABLET PO (05:06)
[2022-08-18 07:24] VITALS: BP 132/61; PULSE 68; RESP 16; TEMP 36.1; O2SAT 92
[2022-08-18 07:36] LABS: Glucose, Whole Blood 72 mg/dL (60-115)
[2022-08-18 08:04] LABS: Creatinine Clr Calc Pharmacy 49.6; Estimated Glomerular Filt Rate > 60
[2022-08-18] MEDS: Aspirin Enteric Coated 81 MG TABLET.DR PO (08:43)
[2022-08-18] MEDS: glipiZIDE 5 MG TABLET PO (08:43)
[2022-08-18] MEDS: Apixaban 5 MG TABLET PO ×2 (08:44→21:31)
[2022-08-18] MEDS: Furosemide 40 MG TABLET PO (08:44)
[2022-08-18] MEDS: Metoprolol Tartrate 25 MG TABLET 75 MG PO ×2 (08:44→21:31)
[2022-08-18] MEDS: 0.9 % Sodium Chloride Flush 3 ML SYRINGE IVFLUSH (08:44)
[2022-08-18] MEDS: Nystatin Powder 15 GM BOTTLE 1 APPL TOPICAL (08:46)
--- NOTE | 2022-08-18 09:26 | P.PNIM_ITS ---
Subjective Subjective Date of Service: 08/18/22 Interval History: no complaints Physical Exam Vital Signs: Vital Signs: Last Vital Signs Temp 97 F 08/18/22 07:24 Pulse 68 08/18/22 07:24 Resp 16 08/18/22 07:24 BP 132/61 08/18/22 07:24 Pulse Ox 92 08/18/22 07:24 O2 Del Method Room Air 08/18/22 07:24 O2 Flow Rate 2 07/27/22 22:00 BMI result Body Mass Index 29.6 Const: Other: Constitutional : Awake, interactive Neck : Normal inspection, Supple Cardiovascular : irregular irregular, no lower extremity edema Respiratory : not in distress, chest wall moving bilaterally Skin : Warm, Dry Neurological : Alert & oriented to self and place sometimes, can get easily confused, No focal deficit Objective Data Active Medications Acetaminophen (Acetaminophen 325 Mg Tablet) 650 mg PO Q6H PRN PRN Reason: Pain, Mild (Pain Scale 1-3) Last Admin: 08/13/22 12:52 Dose: 650 mg Documented By: [place] Apixaban (Apixaban 5 Mg Tablet) 5 mg PO BID [facility] Last Admin: 08/18/22 08:44 Dose: 5 mg Documented By: JB Aspirin (Aspirin Enteric Coated 81 Mg Tablet.Dr) 81 mg PO DAILY [facility] Last Admin: 08/18/22 08:43 Dose: 81 mg Documented By: JB Atorvastatin Calcium (Atorvastatin Calcium 20 Mg Tablet) 20 mg PO BEDTIME [facility] Last Admin: 08/17/22 21:18 Dose: 20 mg Documented By: AMBER Enalapril Maleate (Enalapril Maleate 10 Mg Tablet) 10 mg PO DAILY [facility]; Protocol Furosemide (Furosemide 40 Mg Tablet) 40 mg PO DAILY [facility]; Protocol Last Admin: 08/18/22 08:44 Dose: 40 mg Documented By: JB Glipizide (Glipizide 5 Mg Tablet) 5 mg PO DAILY [facility] Last Admin: 08/18/22 08:43 Dose: 5 mg Documented By: JB Glucose (Glucose Gel 15 Gm Gel..Gram.) 15 gm PO Q15M PRN; Protocol PRN Reason: per Hypoglycemia Standing Ord. Dextrose (D10) 250 mls @ 750 mls/hr IV Q15M PRN; Protocol PRN Reason: per Hypoglycemia Standing Ord. Insulin Glargine (Insulin Glargine,Hum.Rec.Anlog 100 Unit/Ml 10 Ml Vial) 10 unit SUBCUT BEDTIME [facility] Last Admin: 08/17/22 21:19 Dose: 10 unit Documented By: AMBER Insulin Human Lispro (Insulin Lispro 100 Unit/Ml 3 Ml Vial) 0 unit SUBCUT QIDACHS [facility]; Protocol Last Admin: 08/18/22 07:38 Dose: Not Given Documented By: JB Non-Admin Reason: No Insulin Coverage Levothyroxine Sodium (Levothyroxine Sodium 112 Mcg Tablet) 112 mcg PO DAILY@0600 [facility] Last Admin: 08/18/22 05:06 Dose: 112 mcg Documented By: AMBER Metformin HCl (Metformin Hcl 850 Mg Tablet) 850 mg PO BIDWM [facility] Last Admin: 08/18/22 08:45 Dose: Not Given Documented By: JB Non-Admin Reason: Patient Refused Metoprolol Tartrate (Metoprolol Tartrate 25 Mg Tablet) 75 mg PO BID [facility]; Protocol Last Admin: 08/18/22 08:44 Dose: 75 mg Documented By: JB Multivitamins/Vitamin C (Multivitamin Tablet) 1 tab PO DAILY [facility] Last Admin: 08/18/22 08:44 Dose: Not Given Documented By: JB Non-Admin Reason: Patient Refused Nystatin (Nystatin Powder 15 Gm Bottle) 1 appl TOPICAL BID [facility]; Protocol Last Admin: 08/18/22 08:46 Dose: 1 appl Documented By: JB Ondansetron HCl (Ondansetron Hcl 4 Mg/2 Ml Vial) 4 mg IVPUSH Q8H PRN PRN Reason: Nausea and Vomiting Quetiapine Fumarate (Quetiapine Fumarate 25 Mg Tablet) 25 mg PO Q8H PRN PRN Reason: anxiety/restlessness Last Admin: 08/09/22 21:28 Dose: 25 mg Documented By: MILTON Sodium Chloride (0.9 % Sodium Chloride Flush 3 Ml Syringe) 3 ml IVFLUSH QSHIFT [facility] Last Admin: 08/18/22 08:44 Dose: 3 ml Documented By: JB Labs 08/04/22 05:55 08/18/22 07:40 Labs: Laboratory Results - last 24 hr 08/17/22 08/17/22 08/17/22 11:04 15:37 19:29 Estim Creat Clear Calc Estimated GFR POC Glucose 166 H 190 H 239 H 08/18/22 08/18/22 07:23 07:40 Estim Creat Clear Calc 49.6 Estimated GFR > 60 POC Glucose 72 Assessment and Plan (1) Neurodegenerative cognitive impairment: Status: Acute Plan 77-year-old female with hypothyroidism, [id number] type 2 diabetes, hypertension, hyperlipidemia, paroxysmal atrial fibrillation anticoagulated with Eliquis, history of invasive ductal carcinoma of the breast, and history of uterine cancer presentd with mechanical fall, afib with rvr paroxysmal afib with rvr, resolved Continue eliquis, metoprolol to 75 bid with better rate control severe on echo acute on chronic diastolic chf po lasix hypotension, resolved restarted lower dose Enalapril lack Capacity 2/2 cognitive impairment evaluated by psych on admission, has no capacity to sign AMA or take medical decisions at this point might need reeval by psych team DM with hyperglycemia and hypoglycemia insulin lantus decreased from 15 units to 10units at bedtime hypothryoid synthroid hld statin hisotry of breast and uterine cancer outpatinet oncology follow up dvt prophylaxis Eliquis full code reason for continued hospitalization: safe dispo Time Spent With Patient Time: Total time managing care of this patient today ____ minutes. Quality Stroke Does the patient have a stroke diagnosis?: No VTE Prior VTE?: No VTE Risk Level:: Medical - moderate - high VTE Device Contraindication: Treatment Not Indicated VTE Drug Contraindication: N/A - Med Ordered
[2022-08-18 10:46] VITALS: BP 125/62; PULSE 68; RESP 20; TEMP 36.6; O2SAT 94
[2022-08-18 11:33] LABS: Glucose, Whole Blood 140 mg/dL (60-115)
[2022-08-18 15:45] VITALS: BP 131/61; PULSE 73; RESP 18; TEMP 36.8; O2SAT 95
[2022-08-18 15:57] LABS: Glucose, Whole Blood 113 mg/dL (60-115)
[2022-08-18 18:58] VITALS: BP 144/84; PULSE 75; RESP 17; TEMP 37; O2SAT 96
[2022-08-18 19:15] LABS: Glucose, Whole Blood 246 mg/dL (60-115)
[2022-08-18] MEDS: Atorvastatin Calcium 20 MG TABLET PO (21:31)
[2022-08-18] MEDS: Insulin Lispro 100 UNIT/ML 3 ML VIAL SUBCUT (21:31)
[2022-08-18] MEDS: Insulin Glargine,Hum.rec.anlog 100 UNIT/ML 10 ML VIAL 10 UNIT SUBCUT (21:31)
[2022-08-18 23:37] VITALS: BP 144/82; PULSE 124; RESP 17; TEMP 36.9; O2SAT 95
[2022-08-19 04:00] VITALS: BP 138/67; PULSE 68; RESP 20; TEMP 36.4; O2SAT 97
[2022-08-19] MEDS: Levothyroxine Sodium 112 MCG TABLET PO (06:30)
[2022-08-19 07:27] LABS: Glucose, Whole Blood 172 mg/dL (60-115)
[2022-08-19 07:35] VITALS: BP 117/58; PULSE 76; RESP 20; TEMP 36.1; O2SAT 95
[2022-08-19] MEDS: Insulin Lispro 100 UNIT/ML 3 ML VIAL SUBCUT ×4 (09:08→21:03)
[2022-08-19] MEDS: Metoprolol Tartrate 25 MG TABLET 75 MG PO ×2 (09:10→21:03)
[2022-08-19] MEDS: glipiZIDE 5 MG TABLET PO (09:13)
[2022-08-19] MEDS: 0.9 % Sodium Chloride Flush 3 ML SYRINGE IVFLUSH ×2 (09:14→16:58)
[2022-08-19] MEDS: Apixaban 5 MG TABLET PO ×2 (09:14→21:03)
[2022-08-19] MEDS: Furosemide 40 MG TABLET PO (09:23)
[2022-08-19] MEDS: Aspirin Enteric Coated 81 MG TABLET.DR PO (09:23)
[2022-08-19] MEDS: Nystatin Powder 15 GM BOTTLE 1 APPL TOPICAL (09:23)
--- NOTE | 2022-08-19 09:33 | P.PNIM_ITS ---
Subjective Subjective Date of Service: 08/19/22 Interval History: no complaints Physical Exam Vital Signs: Vital Signs: Last Vital Signs Temp 96.9 F 08/19/22 07:35 Pulse 76 08/19/22 07:35 Resp 20 08/19/22 07:35 BP 117/58 L 08/19/22 07:35 Pulse Ox 95 08/19/22 07:35 O2 Del Method Room Air 08/19/22 07:35 O2 Flow Rate 2 07/27/22 22:00 BMI result Body Mass Index 29.6 Const: Other: Constitutional : Awake, interactive Neck : Normal inspection, Supple Cardiovascular : irregular irregular, no lower extremity edema Respiratory : not in distress, chest wall moving bilaterally Skin : Warm, Dry Neurological : Alert & oriented to self and place sometimes, can get easily confused, No focal deficit Objective Data Active Medications Acetaminophen (Acetaminophen 325 Mg Tablet) 650 mg PO Q6H PRN PRN Reason: Pain, Mild (Pain Scale 1-3) Last Admin: 08/13/22 12:52 Dose: 650 mg Documented By: [place] Apixaban (Apixaban 5 Mg Tablet) 5 mg PO BID [facility] Last Admin: 08/19/22 09:14 Dose: 5 mg Documented By: GÓMEZ Aspirin (Aspirin Enteric Coated 81 Mg Tablet.Dr) 81 mg PO DAILY [facility] Last Admin: 08/18/22 08:43 Dose: 81 mg Documented By: JB Atorvastatin Calcium (Atorvastatin Calcium 20 Mg Tablet) 20 mg PO BEDTIME [facility] Last Admin: 08/18/22 21:31 Dose: 20 mg Documented By: MELE Enalapril Maleate (Enalapril Maleate 10 Mg Tablet) 10 mg PO DAILY [facility]; Protocol Furosemide (Furosemide 40 Mg Tablet) 40 mg PO DAILY [facility]; Protocol Last Admin: 08/18/22 08:44 Dose: 40 mg Documented By: JB Glipizide (Glipizide 5 Mg Tablet) 5 mg PO DAILY [facility] Last Admin: 08/19/22 09:13 Dose: 5 mg Documented By: GÓMEZ Glucose (Glucose Gel 15 Gm Gel..Gram.) 15 gm PO Q15M PRN; Protocol PRN Reason: per Hypoglycemia Standing Ord. Dextrose (D10) 250 mls @ 750 mls/hr IV Q15M PRN; Protocol PRN Reason: per Hypoglycemia Standing Ord. Insulin Glargine (Insulin Glargine,Hum.Rec.Anlog 100 Unit/Ml 10 Ml Vial) 10 unit SUBCUT BEDTIME [facility] Last Admin: 08/18/22 21:31 Dose: 10 unit Documented By: MELE Insulin Human Lispro (Insulin Lispro 100 Unit/Ml 3 Ml Vial) 0 unit SUBCUT QIDACHS [facility]; Protocol Last Admin: 08/19/22 09:08 Dose: 2 unit Documented By: GÓMEZ Levothyroxine Sodium (Levothyroxine Sodium 112 Mcg Tablet) 112 mcg PO DAILY@0600 [facility] Last Admin: 08/19/22 06:30 Dose: 112 mcg Documented By: MELE Metformin HCl (Metformin Hcl 850 Mg Tablet) 850 mg PO BIDWM [facility] Last Admin: 08/19/22 09:17 Dose: Not Given Documented By: GÓMEZ Non-Admin Reason: Patient Refused Metoprolol Tartrate (Metoprolol Tartrate 25 Mg Tablet) 75 mg PO BID [facility]; Protocol Last Admin: 08/19/22 09:10 Dose: 75 mg Documented By: GÓMEZ Multivitamins/Vitamin C (Multivitamin Tablet) 1 tab PO DAILY [facility] Last Admin: 08/18/22 08:44 Dose: Not Given Documented By: JB Non-Admin Reason: Patient Refused Nystatin (Nystatin Powder 15 Gm Bottle) 1 appl TOPICAL BID [facility]; Protocol Last Admin: 08/18/22 21:38 Dose: Not Given Documented By: MELE Non-Admin Reason: Patient Refused Ondansetron HCl (Ondansetron Hcl 4 Mg/2 Ml Vial) 4 mg IVPUSH Q8H PRN PRN Reason: Nausea and Vomiting Quetiapine Fumarate (Quetiapine Fumarate 25 Mg Tablet) 25 mg PO Q8H PRN PRN Reason: anxiety/restlessness Last Admin: 08/09/22 21:28 Dose: 25 mg Documented By: MILTON Sodium Chloride (0.9 % Sodium Chloride Flush 3 Ml Syringe) 3 ml IVFLUSH QSHIFT [facility] Last Admin: 08/19/22 09:14 Dose: 3 ml Documented By: GÓMEZ Labs 08/04/22 05:55 08/18/22 07:40 Labs: Laboratory Results - last 24 hr 08/18/22 08/18/22 08/18/22 11:28 15:49 19:01 POC Glucose 140 H 113 246 H 08/19/22 07:24 POC Glucose 172 H Assessment and Plan (1) Neurodegenerative cognitive impairment: Status: Acute Plan 77-year-old female with hypothyroidism, [id number] type 2 diabetes, hypertension, hyperlipidemia, paroxysmal atrial fibrillation anticoagulated with Eliquis, history of invasive ductal carcinoma of the breast, and history of uterine cancer presentd with mechanical fall, afib with rvr paroxysmal afib with rvr, resolved Continue eliquis, metoprolol to 75 bid with better rate control severe on echo acute on chronic diastolic chf po lasix hypotension, resolved restarted lower dose Enalapril lack Capacity 2/2 cognitive impairment evaluated by psych on admission, has no capacity to sign AMA or take medical decisions at this point DM with hyperglycemia and hypoglycemia insulin lantus decreased from 15 units to 10units at bedtime hypothryoid synthroid hld statin hisotry of breast and uterine cancer outpatinet oncology follow up dvt prophylaxis Eliquis full code reason for continued hospitalization: safe dispo Time Spent With Patient Time: Total time managing care of this patient today ____ minutes. Quality Stroke Does the patient have a stroke diagnosis?: No VTE Prior VTE?: No VTE Risk Level:: Medical - moderate - high VTE Device Contraindication: Treatment Not Indicated VTE Drug Contraindication: N/A - Med Ordered
--- NOTE | 2022-08-19 10:43 | MHC.CM.PN ---
Addendum entered by Shannon Fang 08/19/22 14:54: Jennifer from [employer] in seeing the pt, and asked for an update from this CM. This CM provided the information that we are awaiting the MH application at this time, with the plan for LTC placement afterwards. Original Note: EMR reviewed and per MD rounds, we are awaiting LTC placement pending completion of MH JUWAN/determination. Spoke with patients erick Dori and there are no new updates at this time. CM will continue to follow.
[2022-08-19 12:00] VITALS: BP 118/70; PULSE 70; RESP 20; TEMP 36.8; O2SAT 96
[2022-08-19 12:13] LABS: Glucose, Whole Blood 172 mg/dL (60-115)
[2022-08-19 16:00] VITALS: BP 134/59; PULSE 124; RESP 18; TEMP 37; O2SAT 98
[2022-08-19 16:13] LABS: Glucose, Whole Blood 221 mg/dL (60-115)
[2022-08-19 19:49] VITALS: BP 117/81; PULSE 128; RESP 18; TEMP 36.8; O2SAT 98
[2022-08-19 20:06] LABS: Glucose, Whole Blood 251 mg/dL (60-115)
[2022-08-19] MEDS: Insulin Glargine,Hum.rec.anlog 100 UNIT/ML 10 ML VIAL 10 UNIT SUBCUT (21:03)
[2022-08-19] MEDS: Atorvastatin Calcium 20 MG TABLET PO (21:03)
[2022-08-20] VITALS (7 sets, daily range): BP systolic 104–136; BP diastolic 55–79; PULSE 64–100; RESP 16–18; TEMP 36.2–37; O2SAT 95–97
[2022-08-20 08:23] LABS: Glucose, Whole Blood 105 mg/dL (60-115)
[2022-08-20] MEDS: Apixaban 5 MG TABLET PO ×2 (09:02→20:42)
[2022-08-20] MEDS: Metoprolol Tartrate 25 MG TABLET 75 MG PO ×2 (09:02→20:42)
[2022-08-20] MEDS: Levothyroxine Sodium 112 MCG TABLET PO (09:03)
[2022-08-20] MEDS: Aspirin Enteric Coated 81 MG TABLET.DR PO (09:03)
[2022-08-20] MEDS: Furosemide 40 MG TABLET PO (09:03)
[2022-08-20] MEDS: glipiZIDE 5 MG TABLET PO (09:03)
[2022-08-20] MEDS: 0.9 % Sodium Chloride Flush 3 ML SYRINGE IVFLUSH (09:04)
[2022-08-20] MEDS: Nystatin Powder 15 GM BOTTLE 1 APPL TOPICAL ×2 (09:10→20:43)
--- NOTE | 2022-08-20 09:33 | P.PNIM_ITS ---
Subjective Subjective Date of Service: 08/20/22 Interval History: no complaints Physical Exam Vital Signs: Vital Signs: Last Vital Signs Temp 97.8 F 08/20/22 07:01 Pulse 67 08/20/22 07:01 Resp 16 08/20/22 07:01 BP 136/75 08/20/22 07:01 Pulse Ox 95 08/20/22 07:01 O2 Del Method Room Air 08/20/22 07:01 O2 Flow Rate 2 07/27/22 22:00 BMI result Body Mass Index 29.6 Const: Other: Constitutional : Awake, interactive Neck : Normal inspection, Supple Cardiovascular : irregular irregular, no lower extremity edema Respiratory : not in distress, chest wall moving bilaterally Skin : Warm, Dry Neurological : Alert & oriented to self and place sometimes, can get easily confused, No focal deficit Objective Data Active Medications Acetaminophen (Acetaminophen 325 Mg Tablet) 650 mg PO Q6H PRN PRN Reason: Pain, Mild (Pain Scale 1-3) Last Admin: 08/13/22 12:52 Dose: 650 mg Documented By: [place] Apixaban (Apixaban 5 Mg Tablet) 5 mg PO BID [facility] Last Admin: 08/20/22 09:02 Dose: 5 mg Documented By: GÓMEZ Aspirin (Aspirin Enteric Coated 81 Mg Tablet.Dr) 81 mg PO DAILY [facility] Last Admin: 08/20/22 09:03 Dose: 81 mg Documented By: GÓMEZ Atorvastatin Calcium (Atorvastatin Calcium 20 Mg Tablet) 20 mg PO BEDTIME [facility] Last Admin: 08/19/22 21:03 Dose: 20 mg Documented By: MELE Enalapril Maleate (Enalapril Maleate 10 Mg Tablet) 10 mg PO DAILY [facility]; Protocol Furosemide (Furosemide 40 Mg Tablet) 40 mg PO DAILY [facility]; Protocol Last Admin: 08/20/22 09:03 Dose: 40 mg Documented By: GÓMEZ Glipizide (Glipizide 5 Mg Tablet) 5 mg PO DAILY [facility] Last Admin: 08/20/22 09:03 Dose: 5 mg Documented By: GÓMEZ Glucose (Glucose Gel 15 Gm Gel..Gram.) 15 gm PO Q15M PRN; Protocol PRN Reason: per Hypoglycemia Standing Ord. Dextrose (D10) 250 mls @ 750 mls/hr IV Q15M PRN; Protocol PRN Reason: per Hypoglycemia Standing Ord. Insulin Glargine (Insulin Glargine,Hum.Rec.Anlog 100 Unit/Ml 10 Ml Vial) 10 unit SUBCUT BEDTIME [facility] Last Admin: 08/19/22 21:03 Dose: 10 unit Documented By: MELE Insulin Human Lispro (Insulin Lispro 100 Unit/Ml 3 Ml Vial) 0 unit SUBCUT QIDACHS [facility]; Protocol Last Admin: 08/20/22 09:03 Dose: Not Given Documented By: GÓMEZ Non-Admin Reason: No Insulin Coverage Levothyroxine Sodium (Levothyroxine Sodium 112 Mcg Tablet) 112 mcg PO DAILY@0600 [facility] Last Admin: 08/20/22 09:03 Dose: 112 mcg Documented By: GÓMEZ Metformin HCl (Metformin Hcl 850 Mg Tablet) 850 mg PO BIDWM [facility] Last Admin: 08/20/22 09:04 Dose: Not Given Documented By: GÓMEZ Non-Admin Reason: Patient Refused Metoprolol Tartrate (Metoprolol Tartrate 25 Mg Tablet) 75 mg PO BID [facility]; Protocol Last Admin: 08/20/22 09:02 Dose: 75 mg Documented By: GÓMEZ Multivitamins/Vitamin C (Multivitamin Tablet) 1 tab PO DAILY [facility] Last Admin: 08/19/22 09:21 Dose: Not Given Documented By: GÓMEZ Non-Admin Reason: Patient Refused Nystatin (Nystatin Powder 15 Gm Bottle) 1 appl TOPICAL BID [facility]; Protocol Last Admin: 08/20/22 09:10 Dose: 1 appl Documented By: GÓMEZ Ondansetron HCl (Ondansetron Hcl 4 Mg/2 Ml Vial) 4 mg IVPUSH Q8H PRN PRN Reason: Nausea and Vomiting Quetiapine Fumarate (Quetiapine Fumarate 25 Mg Tablet) 25 mg PO Q8H PRN PRN Reason: anxiety/restlessness Last Admin: 08/09/22 21:28 Dose: 25 mg Documented By: MILTON Sodium Chloride (0.9 % Sodium Chloride Flush 3 Ml Syringe) 3 ml IVFLUSH QSHIFT [facility] Last Admin: 08/20/22 09:04 Dose: 3 ml Documented By: GÓMEZ Labs 08/04/22 05:55 08/18/22 07:40 Labs: Laboratory Results - last 24 hr 08/19/22 08/19/22 08/19/22 12:09 16:03 19:47 POC Glucose 172 H 221 H 251 H 08/20/22 07:11 POC Glucose 105 Assessment and Plan (1) Neurodegenerative cognitive impairment: Status: Acute Plan 77-year-old female with hypothyroidism, [id number] type 2 diabetes, hypertension, hyperlipidemia, paroxysmal atrial fibrillation anticoagulated with Eliquis, history of invasive ductal carcinoma of the breast, and history of uterine cancer presentd with mechanical fall, afib with rvr paroxysmal afib with rvr, resolved Continue eliquis, metoprolol to 75 bid with better rate control severe on echo acute on chronic diastolic chf po lasix hypotension, resolved restarted lower dose Enalapril lack Capacity 2/2 cognitive impairment evaluated by psych on admission, has no capacity to sign AMA or take medical decisions at this point DM with hyperglycemia and hypoglycemia insulin lantus decreased from 15 units to 10units at bedtime, has been better controlled since hypothryoid synthroid hld statin hisotry of breast and uterine cancer outpatinet oncology follow up dvt prophylaxis Eliquis full code reason for continued hospitalization: safe dispo Time Spent With Patient Time: Total time managing care of this patient today ____ minutes. Quality Stroke Does the patient have a stroke diagnosis?: No VTE Prior VTE?: No VTE Risk Level:: Medical - moderate - high VTE Device Contraindication: Treatment Not Indicated VTE Drug Contraindication: N/A - Med Ordered
[2022-08-20 11:18] LABS: Glucose, Whole Blood 156 mg/dL (60-115)
--- NOTE | 2022-08-20 15:18 | MHC.CM.PN ---
CM RECEIVED A CALL FROM PT'S DAUGHTER REBEKAH WHO STATES SHE IS WILLING TO MOVE IN WITH HER MOTHER AND CARE FOR HER, CM REDIRECTED HER BACK TO HER SISTER/HCP LIAM WHO SPOKE WITH THIS CM AND STATES THAT WON'T WORK IN MY MOTHER'S [employer]ST INTEREST LIAM STATES SHE HAS PROVIDED THE LAST OF THE PAPERWORK NEEDED FOR MH JUWAN. TO FS. CM WILL CONTINUE TO FOLLOW.
[2022-08-20 15:47] LABS: Glucose, Whole Blood 232 mg/dL (60-115)
[2022-08-20] MEDS: Insulin Lispro 100 UNIT/ML 3 ML VIAL SUBCUT ×2 (17:25→20:49)
[2022-08-20] MEDS: Atorvastatin Calcium 20 MG TABLET PO (20:42)
[2022-08-20 20:48] LABS: Glucose, Whole Blood 271 mg/dL (60-115)
[2022-08-20] MEDS: Insulin Glargine,Hum.rec.anlog 100 UNIT/ML 10 ML VIAL 10 UNIT SUBCUT (20:50)
[2022-08-21 03:59] VITALS: RESP 16
[2022-08-21] MEDS: Levothyroxine Sodium 112 MCG TABLET PO (05:18)
[2022-08-21] MEDS: 0.9 % Sodium Chloride Flush 3 ML SYRINGE IVFLUSH ×3 (05:18→17:33)
[2022-08-21 07:11] VITALS: BP 138/62; PULSE 80; RESP 16; TEMP 36.4; O2SAT 94
[2022-08-21 07:22] LABS: Glucose, Whole Blood 198 mg/dL (60-115)
[2022-08-21] MEDS: Metoprolol Tartrate 25 MG TABLET 75 MG PO ×2 (08:20→20:38)
[2022-08-21] MEDS: Apixaban 5 MG TABLET PO ×2 (08:20→20:37)
[2022-08-21] MEDS: Aspirin Enteric Coated 81 MG TABLET.DR PO (08:21)
[2022-08-21] MEDS: glipiZIDE 5 MG TABLET PO (08:21)
[2022-08-21] MEDS: Insulin Lispro 100 UNIT/ML 3 ML VIAL SUBCUT ×4 (08:21→20:39)
[2022-08-21] MEDS: Furosemide 40 MG TABLET PO (08:21)
[2022-08-21] MEDS: Nystatin Powder 15 GM BOTTLE 1 APPL TOPICAL ×2 (08:27→20:39)
[2022-08-21 11:02] VITALS: BP 116/63; PULSE 71; RESP 16; TEMP 36.2; O2SAT 96
[2022-08-21 11:03] LABS: Glucose, Whole Blood 297 mg/dL (60-115)
--- NOTE | 2022-08-21 14:23 | P.PNIM_ITS ---
Subjective Subjective Date of Service: 08/21/22 Interval History: Seen this morning sitting in chair, comfortable cooperative no other overnight events Review of Systems Review of Systems: Yes all other systems are reviewed and are negative Physical Exam Vital Signs: Vital Signs: Last Vital Signs Temp 97.2 F 08/21/22 11:02 Pulse 71 08/21/22 11:02 Resp 16 08/21/22 11:02 BP 116/63 08/21/22 11:02 Pulse Ox 96 08/21/22 11:02 O2 Del Method Room Air 08/21/22 11:02 O2 Flow Rate 2 07/27/22 22:00 BMI result Body Mass Index 29.6 Const: Other: Constitutional : Awake, interactive Neck : Normal inspection, Supple Cardiovascular : irregular irregular, no lower extremity edema Respiratory : not in distress, chest wall moving bilaterally Skin : Warm, Dry Neurological : Alert & oriented to self and place sometimes, can get easily con fused, No focal deficit Objective Data Active Medications Acetaminophen (Acetaminophen 325 Mg Tablet) 650 mg PO Q6H PRN PRN Reason: Pain, Mild (Pain Scale 1-3) Last Admin: 08/13/22 12:52 Dose: 650 mg Documented By: [place] Apixaban (Apixaban 5 Mg Tablet) 5 mg PO BID [facility] Last Admin: 08/21/22 08:20 Dose: 5 mg Documented By: JELANI Aspirin (Aspirin Enteric Coated 81 Mg Tablet.) 81 mg PO DAILY [facility] Last Admin: 08/21/22 08:21 Dose: 81 mg Documented By: JELANI Atorvastatin Calcium (Atorvastatin Calcium 20 Mg Tablet) 20 mg PO BEDTIME [facility] Last Admin: 08/20/22 20:42 Dose: 20 mg Documented By: BROCK Enalapril Maleate (Enalapril Maleate 10 Mg Tablet) 10 mg PO DAILY [facility]; Protocol Furosemide (Furosemide 40 Mg Tablet) 40 mg PO DAILY [facility]; Protocol Last Admin: 08/21/22 08:21 Dose: 40 mg Documented By: JELANI Glipizide (Glipizide 5 Mg Tablet) 5 mg PO DAILY [facility] Last Admin: 08/21/22 08:21 Dose: 5 mg Documented By: JELANI Glucose (Glucose Gel 15 Gm Gel..Gram.) 15 gm PO Q15M PRN; Protocol PRN Reason: per Hypoglycemia Standing Ord. Dextrose (D10) 250 mls @ 750 mls/hr IV Q15M PRN; Protocol PRN Reason: per Hypoglycemia Standing Ord. Insulin Glargine (Insulin Glargine,Hum.Rec.Anlog 100 Unit/Ml 10 Ml Vial) 10 unit SUBCUT BEDTIME [facility] Last Admin: 08/20/22 20:50 Dose: 10 unit Documented By: BROCK Insulin Human Lispro (Insulin Lispro 100 Unit/Ml 3 Ml Vial) 0 unit SUBCUT QIDACHS [facility]; Protocol Last Admin: 08/21/22 12:22 Dose: 6 unit Documented By: JELANI Levothyroxine Sodium (Levothyroxine Sodium 112 Mcg Tablet) 112 mcg PO DAILY@0600 [facility] Last Admin: 08/21/22 05:18 Dose: 112 mcg Documented By: BROCK Metformin HCl (Metformin Hcl 850 Mg Tablet) 850 mg PO BIDWM [facility] Last Admin: 08/21/22 08:52 Dose: Not Given Documented By: JELANI Non-Admin Reason: Patient Refused Metoprolol Tartrate (Metoprolol Tartrate 25 Mg Tablet) 75 mg PO BID [facility]; Protocol Last Admin: 08/21/22 08:20 Dose: 75 mg Documented By: JELANI Multivitamins/Vitamin C (Multivitamin Tablet) 1 tab PO DAILY [facility] Last Admin: 08/21/22 08:53 Dose: Not Given Documented By: JELANI Non-Admin Reason: Patient Refused Nystatin (Nystatin Powder 15 Gm Bottle) 1 appl TOPICAL BID [facility]; Protocol Last Admin: 08/21/22 08:27 Dose: 1 appl Documented By: JELANI Ondansetron HCl (Ondansetron Hcl 4 Mg/2 Ml Vial) 4 mg IVPUSH Q8H PRN PRN Reason: Nausea and Vomiting Quetiapine Fumarate (Quetiapine Fumarate 25 Mg Tablet) 25 mg PO Q8H PRN PRN Reason: anxiety/restlessness Last Admin: 08/09/22 21:28 Dose: 25 mg Documented By: MILTON Sodium Chloride (0.9 % Sodium Chloride Flush 3 Ml Syringe) [facility] Admin: 08/21/22 08:21 Dose: 3 ml Documented By: JELANI Labs 08/04/22 05:55 08/18/22 07:40 Labs: Laboratory Results - last 24 hr 08/20/22 08/20/22 08/21/22 15:41 20:44 07:09 POC Glucose 232 H 271 H 198 H 08/21/22 10:59 POC Glucose 297 H Assessment and Plan (1) Neurodegenerative cognitive impairment: Status: Acute Plan 77-year-old female with hypothyroidism, [id number]-jycuasija type 2 diabetes, hypertension, hyperlipidemia, paroxysmal atrial fibrillation anticoagulated with Eliquis, history of invasive ductal carcinoma of the breast, and history of uterine cancer presentd with mechanical fall, afib with rvr paroxysmal afib with rvr, resolved Continue eliquis, metoprolol to 75 bid with better rate control severe on echo dc Tele acute on chronic diastolic chf po lasix hypotension, resolved restarted lower dose Enalapril lack Capacity 2/2 cognitive impairment evaluated by psych on admission, has no capacity to sign AMA or take medical decisions at this point might need reeval by psych team DM with hyperglycemia insulin hypothryoid synthroid hld statin hisotry of breast and uterine cancer outpatinet oncology follow up dvt prophylaxis Eliquis full code reason for continued hospitalization: safe dispo Time Spent With Patient Time: Total time managing care of this patient today ____ minutes. Quality Stroke Does the patient have a stroke diagnosis?: No VTE Prior VTE?: No VTE Risk Level:: Medical - moderate - high VTE Device Contraindication: Treatment Not Indicated VTE Drug Contraindication: N/A - Med Ordered
--- NOTE | 2022-08-21 15:39 | MHC.CM.PN ---
Pt not cleared for D/C due to MH application pending. This CM received a phone call from patients daughter Dori, she was worked up on the phone stating that she is worried her mother is getting worse. Dori states her mother sounds confused to her. Dori would like a phone call from an MD because her mother states that she hasn't been seen by and MD in 2 weeks. MD on this case was notified and request made to call to Dori. CM will continue to follow.
[2022-08-21 15:51] LABS: Glucose, Whole Blood 188 mg/dL (60-115)
[2022-08-21 16:00] VITALS: BP 119/71; PULSE 121; RESP 18; TEMP 36.7; O2SAT 90
[2022-08-21 19:32] VITALS: BP 114/49; PULSE 88; RESP 18; TEMP 36.8; O2SAT 98
[2022-08-21 19:48] LABS: Glucose, Whole Blood 263 mg/dL (60-115)
[2022-08-21] MEDS: Atorvastatin Calcium 20 MG TABLET PO (20:37)
[2022-08-21] MEDS: Insulin Glargine,Hum.rec.anlog 100 UNIT/ML 10 ML VIAL 10 UNIT SUBCUT (20:38)
[2022-08-21 23:17] VITALS: BP 131/55; PULSE 94; RESP 20; TEMP 36.7; O2SAT 96
[2022-08-22] MEDS: 0.9 % Sodium Chloride Flush 3 ML SYRINGE IVFLUSH ×3 (00:13→16:56)
[2022-08-22 04:00] VITALS: BP 105/62; PULSE 72; RESP 20; TEMP 36.7; O2SAT 96
[2022-08-22] MEDS: Levothyroxine Sodium 112 MCG TABLET PO (05:42)
[2022-08-22 07:23] LABS: Glucose, Whole Blood 133 mg/dL (60-115)
[2022-08-22 07:38] VITALS: BP 110/50; PULSE 70; RESP 18; TEMP 36.7; O2SAT 92
[2022-08-22] MEDS: Apixaban 5 MG TABLET PO ×2 (08:17→21:43)
[2022-08-22] MEDS: Furosemide 40 MG TABLET PO (08:17)
[2022-08-22] MEDS: Aspirin Enteric Coated 81 MG TABLET.DR PO (08:17)
[2022-08-22] MEDS: Metoprolol Tartrate 25 MG TABLET 75 MG PO ×2 (08:17→21:43)
[2022-08-22] MEDS: glipiZIDE 5 MG TABLET PO (08:18)
[2022-08-22] MEDS: Nystatin Powder 15 GM BOTTLE 1 APPL TOPICAL (08:18)
[2022-08-22 10:34] VITALS: BP 110/50; PULSE 70; O2SAT 92
[2022-08-22 11:12] VITALS: BP 127/60; PULSE 90; RESP 18; TEMP 36.8; O2SAT 95
[2022-08-22 11:14] LABS: Glucose, Whole Blood 237 mg/dL (60-115)
[2022-08-22] MEDS: Insulin Lispro 100 UNIT/ML 3 ML VIAL SUBCUT ×2 (12:00→16:53)
--- NOTE | 2022-08-22 12:33 | HO.PM.IMPN ---
Subjective Subjective Date of Service: 08/22/22 Interval History: Seen this morning sitting in chair, comfortable cooperative and wants to go home as soon as possible no other overnight events Review of Systems Review of Systems: Yes all other systems are reviewed and are negative Physical Exam Vital Signs: Vital Signs: Last Vital Signs Temp 98.2 F 08/22/22 11:12 Pulse 90 08/22/22 11:12 Resp 18 08/22/22 11:12 BP 127/60 08/22/22 11:12 Pulse Ox 95 08/22/22 11:12 O2 Del Method Room Air 08/22/22 11:12 O2 Flow Rate 2 07/27/22 22:00 BMI result Body Mass Index 29.6 Const: Other: Constitutional : Awake, interactive Neck : Normal inspection, Supple Cardiovascular : irregular irregular, no lower extremity edema Respiratory : not in distress, chest wall moving bilaterally Skin : Warm, Dry Neurological : Alert & oriented to self and place sometimes, can get easily confused, No focal deficit Objective Data Active Medications Acetaminophen (Acetaminophen 325 Mg Tablet) 650 mg PO Q6H PRN PRN Reason: Pain, Mild (Pain Scale 1-3) Last Admin: 08/13/22 12:52 Dose: 650 mg Documented By: [place] Apixaban (Apixaban 5 Mg Tablet) 5 mg PO BID [facility] Last Admin: 08/22/22 08:17 Dose: 5 mg Documented By: MARISELA Aspirin (Aspirin Enteric Coated 81 Mg Tablet.) 81 mg PO DAILY [facility] Last Admin: 08/22/22 08:17 Dose: 81 mg Documented By: MARISELA Atorvastatin Calcium (Atorvastatin Calcium 20 Mg Tablet) 20 mg PO BEDTIME [facility] Last Admin: 08/21/22 20:37 Dose: 20 mg Documented By: DOBROB Enalapril Maleate (Enalapril Maleate 10 Mg Tablet) 10 mg PO DAILY [facility]; Protocol Furosemide (Furosemide 40 Mg Tablet) 40 mg PO DAILY [facility]; Protocol Last Admin: 08/22/22 08:17 Dose: 40 mg Documented By: MARISELA Glipizide (Glipizide 5 Mg Tablet) 5 mg PO DAILY [facility] Last Admin: 08/22/22 08:18 Dose: 5 mg Documented By: MARISELA Glucose (Glucose Gel 15 Gm Gel..Gram.) 15 gm PO Q15M PRN; Protocol PRN Reason: per Hypoglycemia Standing Ord. Dextrose (D10) 250 mls @ 750 mls/hr IV Q15M PRN; Protocol PRN Reason: per Hypoglycemia Standing Ord. Insulin Glargine (Insulin Glargine,Hum.Rec.Anlog 100 Unit/Ml 10 Ml Vial) 10 unit SUBCUT BEDTIME [facility] Last Admin: 08/21/22 20:38 Dose: 10 unit Documented By: AGATA Insulin Human Lispro (Insulin Lispro 100 Unit/Ml 3 Ml Vial) 0 unit SUBCUT QIDACHS [facility]; Protocol Last Admin: 08/22/22 12:00 Dose: 4 unit Documented By: MARISELA Levothyroxine Sodium (Levothyroxine Sodium 112 Mcg Tablet) 112 mcg PO DAILY@0600 [facility] Last Admin: 08/22/22 05:42 Dose: 112 mcg Documented By: MOHSEN Metformin HCl (Metformin Hcl 850 Mg Tablet) 850 mg PO BIDWM [facility] Last Admin: 08/22/22 08:18 Dose: Not Given Documented By: MARISELA Non-Admin Reason: Patient Refused Metoprolol Tartrate (Metoprolol Tartrate 25 Mg Tablet) 75 mg PO BID [facility]; Protocol Last Admin: 08/22/22 08:17 Dose: 75 mg Documented By: MARISELA Multivitamins/Vitamin C (Multivitamin Tablet) 1 tab PO DAILY [facility] Last Admin: 08/22/22 08:18 Dose: Not Given Documented By: MARISELA Non-Admin Reason: Patient Refused Nystatin (Nystatin Powder 15 Gm Bottle) 1 appl TOPICAL BID [facility]; Protocol Last Admin: 08/22/22 08:18 Dose: 1 appl Documented By: MARISELA Ondansetron HCl (Ondansetron Hcl 4 Mg/2 Ml Vial) 4 mg IVPUSH Q8H PRN PRN Reason: Nausea and Vomiting Quetiapine Fumarate (Quetiapine Fumarate 25 Mg Tablet) 25 mg PO Q8H PRN PRN Reason: anxiety/restlessness Last Admin: 08/09/22 21:28 Dose: 25 mg Documented By: MILTON Sodium Chloride (0.9 % Sodium Chloride Flush 3 Ml Syringe) 3 ml IVFLUSH QSHIFT [facility] Last Admin: 08/22/22 08:18 Dose: 3 ml Documented By: MARISELA Labs 08/04/22 05:55 08/18/22 07:40 Labs: Laboratory Results - last 24 hr 08/21/22 08/21/22 08/22/22 15:37 19:44 07:18 POC Glucose 188 H 263 H 133 H 08/22/22 11:04 POC Glucose 237 H Assessment and Plan (1) Neurodegenerative cognitive impairment: Status: Acute Plan 77-year-old female with hypothyroidism, [id number] type 2 diabetes, hypertension, hyperlipidemia, paroxysmal atrial fibrillation anticoagulated with Eliquis, history of invasive ductal carcinoma of the breast, and history of uterine cancer presentd with mechanical fall, afib with rvr paroxysmal afib with rvr, resolved Continue eliquis, metoprolol to 75 bid with better rate control severe on echo acute on chronic diastolic chf po lasix hypotension, resolved restarted lower dose Enalapril lack Capacity 2/2 cognitive impairment evaluated by psych on admission, has no capacity to sign AMA or take medical decisions at this point, HCP invoked DM with hyperglycemia insulin hypothryoid synthroid hld statin hisotry of breast and uterine cancer outpatinet oncology follow up dvt prophylaxis Eliquis full code reason for continued hospitalization: safe dispo Time Spent With Patient Time: Total time managing care of this patient today ____ minutes. Quality Stroke Does the patient have a stroke diagnosis?: No VTE Prior VTE?: No VTE Risk Level:: Medical - moderate - high VTE Device Contraindication: Treatment Not Indicated VTE Drug Contraindication: N/A - Med Ordered
[2022-08-22 15:35] VITALS: BP 126/88; PULSE 76; RESP 18; TEMP 37; O2SAT 97
[2022-08-22 15:39] LABS: Glucose, Whole Blood 217 mg/dL (60-115)
[2022-08-22] MEDS: Docusate Sodium 100 MG CAPSULE PO (17:58)
[2022-08-22 20:00] VITALS: BP 125/61; PULSE 93; RESP 18; TEMP 37; O2SAT 96
[2022-08-22 20:32] LABS: Glucose, Whole Blood 141 mg/dL (60-115)
[2022-08-22] MEDS: Atorvastatin Calcium 20 MG TABLET PO (21:43)
[2022-08-23] VITALS (7 sets, daily range): BP systolic 126–145; BP diastolic 56–89; PULSE 68–102; RESP 20; TEMP 36–36.9; O2SAT 92–97
[2022-08-23] MEDS: Levothyroxine Sodium 112 MCG TABLET PO (06:14)
[2022-08-23 07:32] LABS: Glucose, Whole Blood 218 mg/dL (60-115)
[2022-08-23] MEDS: Insulin Lispro 100 UNIT/ML 3 ML VIAL SUBCUT ×4 (08:19→21:08)
[2022-08-23] MEDS: Aspirin Enteric Coated 81 MG TABLET.DR PO (08:20)
[2022-08-23] MEDS: Apixaban 5 MG TABLET PO ×2 (08:20→21:08)
[2022-08-23] MEDS: glipiZIDE 5 MG TABLET PO (08:20)
[2022-08-23] MEDS: Furosemide 40 MG TABLET PO (08:20)
[2022-08-23] MEDS: Metoprolol Tartrate 25 MG TABLET 75 MG PO ×2 (08:20→21:08)
[2022-08-23] MEDS: 0.9 % Sodium Chloride Flush 3 ML SYRINGE IVFLUSH ×3 (08:27→21:08)
--- NOTE | 2022-08-23 10:50 | MHC.CM.PN ---
EMR REVIEWED, PT CONT'S TO BE A LTC BED SEARCH, CM AWAITING UPDATE FROM FS ON STATUS OF MH JUWAN, CM WILL CONT TO FOLLOW D/C NEEDS.
[2022-08-23 11:12] LABS: Glucose, Whole Blood 220 mg/dL (60-115)
--- NOTE | 2022-08-23 13:31 | HO.PM.IMPN ---
Subjective Subjective Date of Service: 08/23/22 Interval History: Seen this morning sitting in chair, comfortable cooperative and wants to go home as soon as possible no other overnight events Physical Exam Vital Signs: Vital Signs: Last Vital Signs Temp 98.4 F 08/23/22 11:24 Pulse 82 08/23/22 11:24 Resp 20 08/23/22 11:24 BP 145/65 H 08/23/22 11:24 Pulse Ox 97 08/23/22 11:24 O2 Del Method Room Air 08/23/22 11:24 O2 Flow Rate 2 07/27/22 22:00 BMI result Body Mass Index 29.6 Const: Other: Constitutional : Awake, interactive Neck : Normal inspection, Supple Cardiovascular : irregular irregular, no lower extremity edema Respiratory : not in distress, chest wall moving bilaterally Skin : Warm, Dry Neurological : Alert & oriented to self and place sometimes, can get easily confused, No focal deficit Objective Data Active Medications Acetaminophen (Acetaminophen 325 Mg Tablet) 650 mg PO Q6H PRN PRN Reason: Pain, Mild (Pain Scale 1-3) Last Admin: 08/13/22 12:52 Dose: 650 mg Documented By: [place] Apixaban (Apixaban 5 Mg Tablet) 5 mg PO BID [facility] Last Admin: 08/23/22 08:20 Dose: 5 mg Documented By: MARISELA Aspirin (Aspirin Enteric Coated 81 Mg Tablet.Dr) 81 mg PO DAILY [facility] Last Admin: 08/23/22 08:20 Dose: 81 mg Documented By: MARISELA Atorvastatin Calcium (Atorvastatin Calcium 20 Mg Tablet) 20 mg PO BEDTIME [facility] Last Admin: 08/22/22 21:43 Dose: 20 mg Documented By: MELE Docusate Sodium (Docusate Sodium 100 Mg Capsule) 100 mg PO DAILY PRN PRN Reason: Constipation Last Admin: 08/22/22 17:58 Dose: 100 mg Documented By: MARISELA Enalapril Maleate (Enalapril Maleate 10 Mg Tablet) 10 mg PO DAILY [facility]; Protocol Furosemide (Furosemide 40 Mg Tablet) 40 mg PO DAILY [facility]; Protocol Last Admin: 08/23/22 08:20 Dose: 40 mg Documented By: MARISELA Glipizide (Glipizide 5 Mg Tablet) 5 mg PO DAILY [facility] Last Admin: 08/23/22 08:20 Dose: 5 mg Documented By: MARISELA Glucose (Glucose Gel 15 Gm Gel..Gram.) 15 gm PO Q15M PRN; Protocol PRN Reason: per Hypoglycemia Standing Ord. Dextrose (D10) 250 mls @ 750 mls/hr IV Q15M PRN; Protocol PRN Reason: per Hypoglycemia Standing Ord. Insulin Glargine (Insulin Glargine,Hum.Rec.Anlog 100 Unit/Ml 10 Ml Vial) 10 unit SUBCUT BEDTIME [facility] Last Admin: 08/22/22 21:20 Dose: Not Given Documented By: MELE Non-Admin Reason: No Insulin Coverage Insulin Human Lispro (Insulin Lispro 100 Unit/Ml 3 Ml Vial) 0 unit SUBCUT QIDACHS [facility]; Protocol Last Admin: 08/23/22 11:49 Dose: 4 unit Documented By: MARISELA Levothyroxine Sodium (Levothyroxine Sodium 112 Mcg Tablet) 112 mcg PO DAILY@0600 [facility] Last Admin: 08/23/22 06:14 Dose: 112 mcg Documented By: MELE Metformin HCl (Metformin Hcl 850 Mg Tablet) 850 mg PO BIDWM [facility] Last Admin: 08/23/22 08:27 Dose: Not Given Documented By: MARISELA Non-Admin Reason: Patient Refused Metoprolol Tartrate (Metoprolol Tartrate 25 Mg Tablet) 75 mg PO BID [facility]; Protocol Last Admin: 08/23/22 08:20 Dose: 75 mg Documented By: MARISELA Multivitamins/Vitamin C (Multivitamin Tablet) 1 tab PO DAILY [facility] Last Admin: 08/23/22 08:27 Dose: Not Given Documented By: MARISELA Non-Admin Reason: Patient Refused Nystatin (Nystatin Powder 15 Gm Bottle) 1 appl TOPICAL BID [facility]; Protocol Last Admin: 08/23/22 08:28 Dose: Not Given Documented By: MARISELA Non-Admin Reason: Patient Refused Ondansetron HCl (Ondansetron Hcl 4 Mg/2 Ml Vial) 4 mg IVPUSH Q8H PRN PRN Reason: Nausea and Vomiting Quetiapine Fumarate (Quetiapine Fumarate 25 Mg Tablet) 25 mg PO Q8H PRN PRN Reason: anxiety/restlessness Last Admin: 08/09/22 21:28 Dose: 25 mg Documented By: MILTON Sodium Chloride (0.9 % Sodium Chloride Flush 3 Ml Syringe) 3 ml IVFLUSH QSHIFT [facility] Last Admin: 08/23/22 08:27 Dose: 3 ml Documented By: MARISELA Labs 08/04/22 05:55 08/18/22 07:40 Labs: Laboratory Results - last 24 hr 08/22/22 08/22/22 08/23/22 15:32 20:10 07:26 POC Glucose 217 H 141 H 218 H 08/23/22 11:04 POC Glucose 220 H Assessment and Plan (1) Neurodegenerative cognitive impairment: Status: Acute Plan 77-year-old female with hypothyroidism, [id number] type 2 diabetes, hypertension, hyperlipidemia, paroxysmal atrial fibrillation anticoagulated with Eliquis, history of invasive ductal carcinoma of the breast, and history of uterine cancer presentd with mechanical fall, afib with rvr lack Capacity 2/2 cognitive impairment evaluated by psych on admission, has no capacity to sign AMA or take medical decisions at this point, HCP invoked pending safe discharge plan paroxysmal afib with rvr, resolved Continue eliquis, metoprolol to 75 bid with better rate control severe on echo acute on chronic diastolic chf po lasix hypotension, resolved restarted lower dose Enalapril DM with hyperglycemia insulin hypothryoid synthroid hld statin hisotry of breast and uterine cancer outpatinet oncology follow up dvt prophylaxis Eliquis full code reason for continued hospitalization: safe dispo Time Spent With Patient Time: Total time managing care of this patient today ____ minutes. Quality Stroke Does the patient have a stroke diagnosis?: No VTE Prior VTE?: No VTE Risk Level:: Medical - moderate - high VTE Device Contraindication: Treatment Not Indicated VTE Drug Contraindication: N/A - Med Ordered
[2022-08-23 16:48] LABS: Glucose, Whole Blood 228 mg/dL (60-115)
[2022-08-23 20:45] LABS: Glucose, Whole Blood 241 mg/dL (60-115)
[2022-08-23] MEDS: Atorvastatin Calcium 20 MG TABLET PO (21:08)
[2022-08-23] MEDS: Insulin Glargine,Hum.rec.anlog 100 UNIT/ML 10 ML VIAL 10 UNIT SUBCUT (21:09)
[2022-08-23] MEDS: Nystatin Powder 15 GM BOTTLE 1 APPL TOPICAL (21:34)
[2022-08-24] VITALS: BP 120/65; PULSE 67; RESP 20; TEMP 36.6; O2SAT 98
[2022-08-24 04:00] VITALS: BP 127/71; PULSE 67; RESP 20; O2SAT 93
[2022-08-24] MEDS: Levothyroxine Sodium 112 MCG TABLET PO (04:49)
[2022-08-24 07:12] VITALS: BP 143/86; PULSE 72; RESP 20; TEMP 36.3; O2SAT 95
[2022-08-24 07:14] LABS: Glucose, Whole Blood 154 mg/dL (60-115)
[2022-08-24] MEDS: Apixaban 5 MG TABLET PO ×2 (09:10→21:57)
[2022-08-24] MEDS: 0.9 % Sodium Chloride Flush 3 ML SYRINGE IVFLUSH ×3 (09:10→21:57)
[2022-08-24] MEDS: Furosemide 40 MG TABLET PO (09:10)
[2022-08-24] MEDS: Aspirin Enteric Coated 81 MG TABLET.DR PO (09:10)
[2022-08-24] MEDS: glipiZIDE 5 MG TABLET PO (09:10)
[2022-08-24] MEDS: Metoprolol Tartrate 25 MG TABLET 75 MG PO ×2 (09:10→21:53)
[2022-08-24] MEDS: Insulin Lispro 100 UNIT/ML 3 ML VIAL SUBCUT ×3 (09:11→16:44)
[2022-08-24] MEDS: Nystatin Powder 15 GM BOTTLE 1 APPL TOPICAL ×2 (09:12→21:58)
[2022-08-24 11:01] VITALS: BP 120/69; PULSE 80; RESP 20; TEMP 36.3; O2SAT 98
--- NOTE | 2022-08-24 11:11 | HO.PM.IMPN ---
Subjective Subjective Date of Service: 08/24/22 Interval History: Seen this morning Sitting in chair, comfortable Cooperative and wants to go home as soon as possible No other overnight events Review of Systems Review of Systems: Yes all other systems are reviewed and are negative Physical Exam Vital Signs: Vital Signs: Last Vital Signs Temp 97.4 F 08/24/22 11:01 Pulse 80 08/24/22 11:01 Resp 20 08/24/22 11:01 BP 120/69 08/24/22 11:01 Pulse Ox 98 08/24/22 11:01 O2 Del Method Room Air 08/24/22 11:01 O2 Flow Rate 2 07/27/22 22:00 BMI result Body Mass Index 29.6 Const: Other: Constitutional : Awake, interactive Neck : Normal inspection, Supple Cardiovascular : irregular irregular, no lower extremity edema Respiratory : not in distress, chest wall moving bilaterally Skin : Warm, Dry Neurological : Alert & oriented to self and place sometimes, can get easily confused, No focal deficit Objective Data Active Medications Acetaminophen (Acetaminophen 325 Mg Tablet) 650 mg PO Q6H PRN PRN Reason: Pain, Mild (Pain Scale 1-3) Last Admin: 08/13/22 12:52 Dose: 650 mg Documented By: [place] Apixaban (Apixaban 5 Mg Tablet) 5 mg PO BID [facility] Last Admin: 08/24/22 09:10 Dose: 5 mg Documented By: JB Aspirin (Aspirin Enteric Coated 81 Mg Tablet.) 81 mg PO DAILY [facility] Last Admin: 08/24/22 09:10 Dose: 81 mg Documented By: JB Atorvastatin Calcium (Atorvastatin Calcium 20 Mg Tablet) 20 mg PO BEDTIME [facility] Last Admin: 08/23/22 21:08 Dose: 20 mg Documented By: BROCK Docusate Sodium (Docusate Sodium 100 Mg Capsule) 100 mg PO DAILY PRN PRN Reason: Constipation Last Admin: 08/22/22 17:58 Dose: 100 mg Documented By: MARISELA Enalapril Maleate (Enalapril Maleate 10 Mg Tablet) 10 mg PO DAILY [facility]; Protocol Furosemide (Furosemide 40 Mg Tablet) 40 mg PO DAILY [facility]; Protocol Last Admin: 08/24/22 09:10 Dose: 40 mg Documented By: JB Glipizide (Glipizide 5 Mg Tablet) 5 mg PO DAILY [facility] Last Admin: 08/24/22 09:10 Dose: 5 mg Documented By: JB Glucose (Glucose Gel 15 Gm Gel..Gram.) 15 gm PO Q15M PRN; Protocol PRN Reason: per Hypoglycemia Standing Ord. Dextrose (D10) 250 mls @ 750 mls/hr IV Q15M PRN; Protocol PRN Reason: per Hypoglycemia Standing Ord. Insulin Glargine (Insulin Glargine,Hum.Rec.Anlog 100 Unit/Ml 10 Ml Vial) 10 unit SUBCUT BEDTIME [facility] Last Admin: 08/23/22 21:09 Dose: 10 unit Documented By: BROCK Insulin Human Lispro (Insulin Lispro 100 Unit/Ml 3 Ml Vial) 0 unit SUBCUT QIDACHS [facility]; Protocol Last Admin: 08/24/22 09:11 Dose: 2 unit Documented By: JB Levothyroxine Sodium (Levothyroxine Sodium 112 Mcg Tablet) 112 mcg PO DAILY@0600 [facility] Last Admin: 08/24/22 04:49 Dose: 112 mcg Documented By: BROCK Metformin HCl (Metformin Hcl 850 Mg Tablet) 850 mg PO BIDWM [facility] Last Admin: 08/24/22 09:10 Dose: Not Given Documented By: JB Non-Admin Reason: Patient Refused Comments: pt educated/ md aware Metoprolol Tartrate (Metoprolol Tartrate 25 Mg Tablet) 75 mg PO BID [facility]; Protocol Last Admin: 08/24/22 09:10 Dose: 75 mg Documented By: JB Multivitamins/Vitamin C (Multivitamin Tablet) 1 tab PO DAILY [facility] Last Admin: 08/24/22 09:11 Dose: Not Given Documented By: JB Non-Admin Reason: Patient Refused Comments: pt education provided/ md aware Nystatin (Nystatin Powder 15 Gm Bottle) 1 appl TOPICAL BID [facility]; Protocol Last Admin: 08/24/22 09:12 Dose: 1 appl Documented By: JB Ondansetron HCl (Ondansetron Hcl 4 Mg/2 Ml Vial) 4 mg IVPUSH Q8H PRN PRN Reason: Nausea and Vomiting Quetiapine Fumarate (Quetiapine Fumarate 25 Mg Tablet) 25 mg PO Q8H PRN PRN Reason: anxiety/restlessness Last Admin: 08/09/22 21:28 Dose: 25 mg Documented By: MILTON Sodium Chloride (0.9 % Sodium Chloride Flush 3 Ml Syringe) 3 ml IVFLUSH QSHIFT [facility] Last Admin: 08/24/22 09:10 Dose: 3 ml Documented By: JB Labs 08/04/22 05:55 08/18/22 07:40 Labs: Laboratory Results - last 24 hr 08/23/22 08/23/22 08/23/22 11:04 16:44 20:28 POC Glucose 220 H 228 H 241 H 08/24/22 07:06 POC Glucose 154 H Assessment and Plan (1) Neurodegenerative cognitive impairment: Status: Acute Plan 77-year-old female with hypothyroidism, [id number] type 2 diabetes, hypertension, hyperlipidemia, paroxysmal atrial fibrillation anticoagulated with Eliquis, history of invasive ductal carcinoma of the breast, and history of uterine cancer presentd with mechanical fall, afib with rvr lack Capacity 2/2 cognitive impairment evaluated by psych on admission, has no capacity to sign AMA or take medical decisions at this point, HCP invoked pending safe discharge plan paroxysmal afib with rvr, resolved Continue eliquis, metoprolol to 75 bid with better rate control severe on echo acute on chronic diastolic chf po lasix hypotension, resolved restarted lower dose Enalapril DM with hyperglycemia insulin hypothryoid synthroid hld statin hisotry of breast and uterine cancer outpatinet oncology follow up dvt prophylaxis Eliquis full code reason for continued hospitalization: safe dispo Time Spent With Patient Time: Total time managing care of this patient today ____ minutes. Quality Stroke Does the patient have a stroke diagnosis?: No VTE Prior VTE?: No VTE Risk Level:: Medical - moderate - high VTE Device Contraindication: Treatment Not Indicated VTE Drug Contraindication: N/A - Med Ordered
[2022-08-24 11:17] LABS: Glucose, Whole Blood 170 mg/dL (60-115)
[2022-08-24 15:40] LABS: Glucose, Whole Blood 196 mg/dL (60-115)
[2022-08-24 15:51] VITALS: BP 135/62; PULSE 72; RESP 18; TEMP 37; O2SAT 96
[2022-08-24 19:33] LABS: Glucose, Whole Blood 150 mg/dL (60-115)
[2022-08-24 20:00] VITALS: BP 135/80; PULSE 112; RESP 18; TEMP 37.1; O2SAT 96
[2022-08-24] MEDS: Insulin Glargine,Hum.rec.anlog 100 UNIT/ML 10 ML VIAL 10 UNIT SUBCUT (21:53)
[2022-08-24] MEDS: Acetaminophen 325 MG TABLET 650 MG PO (21:55)
[2022-08-24] MEDS: Atorvastatin Calcium 20 MG TABLET PO (21:57)
[2022-08-25] VITALS (7 sets, daily range): BP systolic 109–151; BP diastolic 51–65; PULSE 60–120; RESP 18–20; TEMP 36.1–37.1; O2SAT 94–98
[2022-08-25] MEDS: Levothyroxine Sodium 112 MCG TABLET PO (06:18)
[2022-08-25 07:17] LABS: Glucose, Whole Blood 141 mg/dL (60-115)
[2022-08-25 08:21] LABS: Creatinine Clr Calc Pharmacy 50.2; Estimated Glomerular Filt Rate > 60
[2022-08-25] MEDS: Apixaban 5 MG TABLET PO ×2 (09:34→20:22)
[2022-08-25] MEDS: Aspirin Enteric Coated 81 MG TABLET.DR PO (09:34)
[2022-08-25] MEDS: glipiZIDE 5 MG TABLET PO (09:34)
[2022-08-25] MEDS: Metoprolol Tartrate 25 MG TABLET 75 MG PO ×2 (09:34→20:22)
[2022-08-25] MEDS: Furosemide 40 MG TABLET PO (09:34)
[2022-08-25] MEDS: 0.9 % Sodium Chloride Flush 3 ML SYRINGE IVFLUSH (09:35)
[2022-08-25] MEDS: Acetaminophen 325 MG TABLET 650 MG PO (09:47)
[2022-08-25] MEDS: Nystatin Powder 15 GM BOTTLE 1 APPL TOPICAL ×2 (09:48→21:18)
[2022-08-25 11:09] LABS: Glucose, Whole Blood 199 mg/dL (60-115)
--- NOTE | 2022-08-25 11:10 | P.PNIM_ITS ---
Subjective Subjective Date of Service: 08/25/22 Interval History: Seen this morning Sitting in chair, comfortable, coloring her book Cooperative and interactive No other overnight events Review of Systems Review of Systems: Yes all other systems are reviewed and are negative Physical Exam Vital Signs: Vital Signs: Last Vital Signs Temp 97.3 F 08/25/22 07:18 Pulse 67 08/25/22 07:18 Resp 20 08/25/22 07:18 BP 126/56 L 08/25/22 07:18 Pulse Ox 94 08/25/22 07:18 O2 Del Method Room Air 08/25/22 07:18 O2 Flow Rate 2 07/27/22 22:00 BMI result Body Mass Index 29.6 Const: Other: Constitutional : Awake, interactive Neck : Normal inspection, Supple Cardiovascular : irregular irregular, no lower extremity edema Respiratory : not in distress, chest wall moving bilaterally Skin : Warm, Dry Neurological : Alert & oriented to self and place sometimes, can get easily confused, No focal deficit Objective Data Active Medications Acetaminophen (Acetaminophen 325 Mg Tablet) 650 mg PO Q6H PRN PRN Reason: Pain, Mild (Pain Scale 1-3) Last Admin: 08/25/22 09:47 Dose: 650 mg Documented By: JB Apixaban (Apixaban 5 Mg Tablet) 5 mg PO BID [facility] Last Admin: 08/25/22 09:34 Dose: 5 mg Documented By: JB Aspirin (Aspirin Enteric Coated 81 Mg Tablet.) 81 mg PO DAILY [facility] Last Admin: 08/25/22 09:34 Dose: 81 mg Documented By: JB Atorvastatin Calcium (Atorvastatin Calcium 20 Mg Tablet) 20 mg PO BEDTIME [facility] Last Admin: 08/24/22 21:57 Dose: 20 mg Documented By: GI Docusate Sodium (Docusate Sodium 100 Mg Capsule) 100 mg PO DAILY PRN PRN Reason: Constipation Last Admin: 08/22/22 17:58 Dose: 100 mg Documented By: MARISELA Enalapril Maleate (Enalapril Maleate 10 Mg Tablet) 10 mg PO DAILY [facility]; Protocol Furosemide (Furosemide 40 Mg Tablet) 40 mg PO DAILY [facility]; Protocol Last Admin: 08/25/22 09:34 Dose: 40 mg Documented By: JB Glipizide (Glipizide 5 Mg Tablet) 5 mg PO DAILY [facility] Last Admin: 08/25/22 09:34 Dose: 5 mg Documented By: JB Glucose (Glucose Gel 15 Gm Gel..Gram.) 15 gm PO Q15M PRN; Protocol PRN Reason: per Hypoglycemia Standing Ord. Dextrose (D10) 250 mls @ 750 mls/hr IV Q15M PRN; Protocol PRN Reason: per Hypoglycemia Standing Ord. Insulin Glargine (Insulin Glargine,Hum.Rec.Anlog 100 Unit/Ml 10 Ml Vial) 10 unit SUBCUT BEDTIME [facility] Last Admin: 08/24/22 21:53 Dose: 10 unit Documented By: GI Insulin Human Lispro (Insulin Lispro 100 Unit/Ml 3 Ml Vial) 0 unit SUBCUT QIDACHS [facility]; Protocol Last Admin: 08/25/22 08:38 Dose: Not Given Documented By: JB Non-Admin Reason: No Insulin Coverage Levothyroxine Sodium (Levothyroxine Sodium 112 Mcg Tablet) 112 mcg PO DAILY@0600 [facility] Last Admin: 08/25/22 06:18 Dose: 112 mcg Documented By: GI Metformin HCl (Metformin Hcl 850 Mg Tablet) 850 mg PO BIDWM [facility] Last Admin: 08/25/22 09:27 Dose: Not Given Documented By: JB Non-Admin Reason: Patient Refused Comments: patient educated and/ MD aware Metoprolol Tartrate (Metoprolol Tartrate 25 Mg Tablet) 75 mg PO BID [facility]; Protocol Last Admin: 08/25/22 09:34 Dose: 75 mg Documented By: JB Multivitamins/Vitamin C (Multivitamin Tablet) 1 tab PO DAILY [facility] Last Admin: 08/25/22 09:53 Dose: Not Given Documented By: JB Non-Admin Reason: Patient Refused Nystatin (Nystatin Powder 15 Gm Bottle) 1 appl TOPICAL BID [facility]; Protocol Last Admin: 08/25/22 09:48 Dose: 1 appl Documented By: JB Ondansetron HCl (Ondansetron Hcl 4 Mg/2 Ml Vial) 4 mg IVPUSH Q8H PRN PRN Reason: Nausea and Vomiting Quetiapine Fumarate (Quetiapine Fumarate 25 Mg Tablet) 25 mg PO Q8H PRN PRN Reason: anxiety/restlessness Last Admin: 05/05/23 21:28 Dose: 25 mg Documented By: MILTON Sodium Chloride (0.9 % Sodium Chloride Flush 3 Ml Syringe) [facility] Last Admin: 08/25/22 09:35 Dose: 3 ml Documented By: JB Labs 08/04/22 05:55 08/25/22 07:06 Labs: Laboratory Results - last 24 hr 08/24/22 08/24/22 08/24/22 11:10 15:30 19:25 Estim Creat Clear Calc Estimated GFR POC Glucose 170 H 196 H 150 H 08/25/22 08/25/22 08/25/22 07:06 07:09 11:02 Estim Creat Clear Calc 50.2 Estimated GFR > 60 POC Glucose 141 H 199 H Assessment and Plan (1) Neurodegenerative cognitive impairment: Status: Acute Plan 77-year-old female with hypothyroidism, [id number] type 2 diabetes, hypertension, hyperlipidemia, paroxysmal atrial fibrillation anticoagulated with Eliquis, history of invasive ductal carcinoma of the breast, and history of uterine cancer presentd with mechanical fall, afib with rvr lack Capacity 2/2 cognitive impairment evaluated by psych on admission, has no capacity to sign AMA or take medical decisions at this point, HCP invoked pending safe discharge plan paroxysmal afib with rvr, resolved Continue eliquis, metoprolol to 75 bid with better rate control severe on echo acute on chronic diastolic chf po lasix hypotension, resolved restarted lower dose Enalapril DM with hyperglycemia insulin hypothryoid synthroid hld statin hisotry of breast and uterine cancer outpatinet oncology follow up dvt prophylaxis Eliquis full code reason for continued hospitalization: safe dispo Time Spent With Patient Time: Total time managing care of this patient today ____ minutes. Quality Stroke Does the patient have a stroke diagnosis?: No VTE Prior VTE?: No VTE Risk Level:: Medical - moderate - high VTE Device Contraindication: Treatment Not Indicated VTE Drug Contraindication: N/A - Med Ordered
[2022-08-25] MEDS: Insulin Lispro 100 UNIT/ML 3 ML VIAL SUBCUT ×2 (12:28→16:09)
[2022-08-25 15:52] LABS: Glucose, Whole Blood 230 mg/dL (60-115)
[2022-08-25 20:07] LABS: Glucose, Whole Blood 112 mg/dL (60-115)
[2022-08-25] MEDS: Atorvastatin Calcium 20 MG TABLET PO (20:22)
[2022-08-26 03:38] VITALS: BP 119/74; PULSE 67; RESP 18; TEMP 36.1; O2SAT 97
[2022-08-26] MEDS: 0.9 % Sodium Chloride Flush 3 ML SYRINGE IVFLUSH ×3 (06:31→16:55)
[2022-08-26] MEDS: Levothyroxine Sodium 112 MCG TABLET PO (06:31)
[2022-08-26 07:11] VITALS: BP 128/79; PULSE 95; RESP 20; TEMP 36.2; O2SAT 97
[2022-08-26 07:25] LABS: Glucose, Whole Blood 196 mg/dL (60-115)
[2022-08-26] MEDS: Furosemide 40 MG TABLET PO (08:22)
[2022-08-26] MEDS: metFORMIN HCl 850 MG TABLET PO ×2 (08:22→16:55)
[2022-08-26] MEDS: Apixaban 5 MG TABLET PO ×2 (08:22→20:14)
[2022-08-26] MEDS: glipiZIDE 5 MG TABLET PO (08:22)
[2022-08-26] MEDS: Insulin Lispro 100 UNIT/ML 3 ML VIAL SUBCUT ×3 (08:22→16:55)
[2022-08-26] MEDS: Aspirin Enteric Coated 81 MG TABLET.DR PO (08:22)
[2022-08-26] MEDS: Metoprolol Tartrate 25 MG TABLET 75 MG PO ×2 (08:22→20:14)
[2022-08-26] MEDS: Nystatin Powder 15 GM BOTTLE 1 APPL TOPICAL ×2 (08:26→20:15)
[2022-08-26 11:00] LABS: Glucose, Whole Blood 266 mg/dL (60-115)
--- NOTE | 2022-08-26 11:33 | MHC.CM.PN ---
EMR reviewed and per MD rounds, we continue to await updates from FS of MH tiera, and continues to be a LTC bed search. CM will continue to follow.
[2022-08-26 11:57] VITALS: BP 138/63; PULSE 68; RESP 18; TEMP 37; O2SAT 98
--- NOTE | 2022-08-26 12:48 | HO.PM.IMPN ---
Subjective Subjective Date of Service: 08/26/22 Interval History: Seen this morning Sitting in chair, comfortable, coloring her book Cooperative and interactive No other overnight events Physical Exam Vital Signs: Vital Signs: Last Vital Signs Temp 98.6 F 08/26/22 11:57 Pulse 68 08/26/22 11:57 Resp 18 08/26/22 11:57 BP 138/63 08/26/22 11:57 Pulse Ox 98 08/26/22 11:57 O2 Del Method Room Air 08/26/22 11:57 O2 Flow Rate 2 07/27/22 22:00 BMI result Body Mass Index 29.6 Const: Other: Constitutional : Awake, interactive Neck : Normal inspection, Supple Cardiovascular : irregular irregular, no lower extremity edema Respiratory : not in distress, chest wall moving bilaterally Skin : Warm, Dry Neurological : Alert & oriented to self and place sometimes, can get easily confused, No focal deficit Objective Data Active Medications Acetaminophen (Acetaminophen 325 Mg Tablet) 650 mg PO Q6H PRN PRN Reason: Pain, Mild (Pain Scale 1-3) Last Admin: 08/25/22 09:47 Dose: 650 mg Documented By: JB Apixaban (Apixaban 5 Mg Tablet) 5 mg PO BID [facility] Last Admin: 08/26/22 08:22 Dose: 5 mg Documented By: HAM Aspirin (Aspirin Enteric Coated 81 Mg Tablet.) 81 mg PO DAILY [facility] Last Admin: 08/26/22 08:22 Dose: 81 mg Documented By: HAM Atorvastatin Calcium (Atorvastatin Calcium 20 Mg Tablet) 20 mg PO BEDTIME [facility] Last Admin: 08/25/22 20:22 Dose: 20 mg Documented By: GABRIELE Docusate Sodium (Docusate Sodium 100 Mg Capsule) 100 mg PO DAILY PRN PRN Reason: Constipation Last Admin: 08/22/22 17:58 Dose: 100 mg Documented By: MARISELA Enalapril Maleate (Enalapril Maleate 10 Mg Tablet) 10 mg PO DAILY [facility]; Protocol Furosemide (Furosemide 40 Mg Tablet) 40 mg PO DAILY [facility]; Protocol Last Admin: 08/26/22 08:22 Dose: 40 mg Documented By: HAM Glipizide (Glipizide 5 Mg Tablet) 5 mg PO DAILY [facility] Last Admin: 08/26/22 08:22 Dose: 5 mg Documented By: HAM Glucose (Glucose Gel 15 Gm Gel..Gram.) 15 gm PO Q15M PRN; Protocol PRN Reason: per Hypoglycemia Standing Ord. Dextrose (D10) 250 mls @ 750 mls/hr IV Q15M PRN; Protocol PRN Reason: per Hypoglycemia Standing Ord. Insulin Glargine (Insulin Glargine,Hum.Rec.Anlog 100 Unit/Ml 10 Ml Vial) 10 unit SUBCUT BEDTIME [facility] Last Admin: 08/25/22 20:31 Dose: Not Given Documented By: GABRIELE Non-Admin Reason: Patient Refused Insulin Human Lispro (Insulin Lispro 100 Unit/Ml 3 Ml Vial) 0 unit SUBCUT QIDACHS [facility]; Protocol Last Admin: 08/26/22 12:04 Dose: 6 unit Documented By: HAM Levothyroxine Sodium (Levothyroxine Sodium 112 Mcg Tablet) 112 mcg PO DAILY@0600 [facility] Last Admin: 08/26/22 06:31 Dose: 112 mcg Documented By: GABRIELE Metformin HCl (Metformin Hcl 850 Mg Tablet) 850 mg PO BIDWM [facility] Last Admin: 08/26/22 08:22 Dose: 850 mg Documented By: HAM Metoprolol Tartrate (Metoprolol Tartrate 25 Mg Tablet) 75 mg PO BID [facility]; Protocol Last Admin: 08/26/22 08:22 Dose: 75 mg Documented By: HAM Multivitamins/Vitamin C (Multivitamin Tablet) 1 tab PO DAILY [facility] Last Admin: 08/26/22 08:26 Dose: Not Given Documented By: HAM Non-Admin Reason: Patient Refused Nystatin (Nystatin Powder 15 Gm Bottle) 1 appl TOPICAL BID [facility]; Protocol Last Admin: 08/26/22 08:26 Dose: 1 appl Documented By: HAM Ondansetron HCl (Ondansetron Hcl 4 Mg/2 Ml Vial) 4 mg IVPUSH Q8H PRN PRN Reason: Nausea and Vomiting Quetiapine Fumarate (Quetiapine Fumarate 25 Mg Tablet) 25 mg PO Q8H PRN PRN Reason: anxiety/restlessness Last Admin: 08/09/22 21:28 Dose: 25 mg Documented By: MILTON Sodium Chloride (0.9 % Sodium Chloride Flush 3 Ml Syringe) 3 ml IVFLUSH QSHIFT [facility] Last Admin: 08/26/22 08:23 Dose: 3 ml Documented By: HAM Labs 08/04/22 05:55 08/25/22 07:06 Labs: Laboratory Results - last 24 hr 08/25/22 08/25/22 08/26/22 15:23 19:45 07:13 POC Glucose 230 H 112 196 H 08/26/22 10:56 POC Glucose 266 H Assessment and Plan (1) Neurodegenerative cognitive impairment: Status: Acute Plan 77-year-old female with hypothyroidism, guv-[id number] type 2 diabetes, hypertension, hyperlipidemia, paroxysmal atrial fibrillation anticoagulated with Eliquis, history of invasive ductal carcinoma of the breast, and history of uterine cancer presentd with mechanical fall, afib with rvr lack Capacity 2/2 cognitive impairment evaluated by psych on admission, has no capacity to sign AMA or take medical decisions at this point, HCP invoked pending safe discharge plan paroxysmal afib with rvr, resolved Continue eliquis, metoprolol to 75 bid with better rate control severe on echo acute on chronic diastolic chf po lasix hypotension, resolved restarted lower dose Enalapril DM with hyperglycemia insulin hypothryoid synthroid hld statin hisotry of breast and uterine cancer outpatinet oncology follow up dvt prophylaxis Eliquis full code reason for continued hospitalization: safe dispo Time Spent With Patient Time: Total time managing care of this patient today ____ minutes. Quality Stroke Does the patient have a stroke diagnosis?: No VTE Prior VTE?: No VTE Risk Level:: Medical - moderate - high VTE Device Contraindication: Treatment Not Indicated VTE Drug Contraindication: N/A - Med Ordered
[2022-08-26 16:00] VITALS: BP 127/63; PULSE 69; RESP 18; TEMP 37; O2SAT 96
[2022-08-26 16:05] LABS: Glucose, Whole Blood 194 mg/dL (60-115)
[2022-08-26 19:43] VITALS: BP 127/65; PULSE 102; RESP 18; TEMP 37; O2SAT 96
[2022-08-26 20:04] LABS: Glucose, Whole Blood 141 mg/dL (60-115)
[2022-08-26] MEDS: Atorvastatin Calcium 20 MG TABLET PO (20:14)
[2022-08-26] MEDS: Insulin Glargine,Hum.rec.anlog 100 UNIT/ML 10 ML VIAL 10 UNIT SUBCUT (20:15)
[2022-08-26 23:42] VITALS: BP 137/58; PULSE 71; RESP 18; TEMP 36; O2SAT 96
[2022-08-27] MEDS: 0.9 % Sodium Chloride Flush 3 ML SYRINGE IVFLUSH ×3 (00:08→17:35)
[2022-08-27 03:38] VITALS: BP 127/78; PULSE 84; RESP 18; TEMP 36; O2SAT 96
[2022-08-27] MEDS: Levothyroxine Sodium 112 MCG TABLET PO (06:32)
[2022-08-27 07:08] LABS: Glucose, Whole Blood 197 mg/dL (60-115)
[2022-08-27 07:15] VITALS: BP 113/57; PULSE 81; RESP 20; TEMP 36.4; O2SAT 98
[2022-08-27] MEDS: Insulin Lispro 100 UNIT/ML 3 ML VIAL SUBCUT ×2 (07:58→12:02)
[2022-08-27] MEDS: Furosemide 40 MG TABLET PO (07:58)
[2022-08-27] MEDS: glipiZIDE 5 MG TABLET PO (07:58)
[2022-08-27] MEDS: Apixaban 5 MG TABLET PO ×2 (07:58→21:55)
[2022-08-27] MEDS: Aspirin Enteric Coated 81 MG TABLET.DR PO (07:58)
[2022-08-27] MEDS: Metoprolol Tartrate 25 MG TABLET 75 MG PO ×2 (07:59→21:55)
[2022-08-27] MEDS: metFORMIN HCl 850 MG TABLET PO ×2 (07:59→17:35)
--- NOTE | 2022-08-27 10:36 | P.PNIM_ITS ---
Subjective Subjective Date of Service: 08/27/22 Interval History: Seen this morning Sitting in chair, comfortable, coloring her book Cooperative and interactive No other overnight events Review of Systems Review of Systems: Yes all other systems are reviewed and are negative Physical Exam Vital Signs: Vital Signs: Last Vital Signs Temp 97.5 F 08/27/22 07:15 Pulse 81 08/27/22 07:15 Resp 20 08/27/22 07:15 BP 113/57 L 08/27/22 07:15 Pulse Ox 98 08/27/22 07:15 O2 Del Method Room Air 08/27/22 07:15 O2 Flow Rate 2 07/27/22 22:00 BMI result Body Mass Index 29.6 Const: Other: Constitutional : Awake, interactive Neck : Normal inspection, Supple Cardiovascular : irregular irregular, no lower extremity edema Respiratory : not in distress, chest wall moving bilaterally Skin : Warm, Dry Neurological : Alert & oriented to self and place sometimes, can get easily confused, No focal deficit Objective Data Active Medications Acetaminophen (Acetaminophen 325 Mg Tablet) 650 mg PO Q6H PRN PRN Reason: Pain, Mild (Pain Scale 1-3) Last Admin: 08/25/22 09:47 Dose: 650 mg Documented By: JB Apixaban (Apixaban 5 Mg Tablet) 5 mg PO BID [facility] Last Admin: 08/27/22 07:58 Dose: 5 mg Documented By: AGATA Aspirin (Aspirin Enteric Coated 81 Mg Tablet.) 81 mg PO DAILY [facility] [place] Last Admin: 08/27/22 07:58 Dose: 81 mg Documented By: AGATA Atorvastatin Calcium (Atorvastatin Calcium 20 Mg Tablet) 20 mg PO BEDTIME [facility] [place] Last Admin: 08/26/22 20:14 Dose: 20 mg Documented By: MIKE Docusate Sodium (Docusate Sodium 100 Mg Capsule) 100 mg PO DAILY PRN PRN Reason: Constipation Last Admin: 08/22/22 17:58 Dose: 100 mg Documented By: AMRISELA Enalapril Maleate (Enalapril Maleate 10 Mg Tablet) 10 mg PO DAILY [facility] [place]; Protocol Furosemide (Furosemide 40 Mg Tablet) 40 mg PO DAILY [facility] [place]; Protocol Last Admin: 08/27/22 07:58 Dose: 40 mg Documented By: AGATA Glipizide (Glipizide 5 Mg Tablet) 5 mg PO DAILY [facility] [place] Last Admin: 08/27/22 07:58 Dose: 5 mg Documented By: AGATA Glucose (Glucose Gel 15 Gm Gel..Gram.) 15 gm PO Q15M PRN; Protocol PRN Reason: per Hypoglycemia Standing Ord. Dextrose (D10) 250 mls @ 750 mls/hr IV Q15M PRN; Protocol PRN Reason: per Hypoglycemia Standing Ord. Insulin Glargine (Insulin Glargine,Hum.Rec.Anlog 100 Unit/Ml 10 Ml Vial) 10 unit SUBCUT BEDTIME [facility] [place] Last Admin: 08/26/22 20:15 Dose: 10 unit Documented By: MIKE Insulin Human Lispro (Insulin Lispro 100 Unit/Ml 3 Ml Vial) 0 unit SUBCUT QIDACHS [facility] [place]; Protocol Last Admin: 08/27/22 07:58 Dose: 2 unit Documented By: AGATA Levothyroxine Sodium (Levothyroxine Sodium 112 Mcg Tablet) 112 mcg PO DAILY@ 0600 [facility] [place] Last Admin: 08/27/22 06:32 Dose: 112 mcg Documented By: JACKY Metformin HCl (Metformin Hcl 850 Mg Tablet) 850 mg PO BIDWM [facility] [place] Last Admin: 08/27/22 07:59 Dose: 850 mg Documented By: AGATA Metoprolol Tartrate (Metoprolol Tartrate 25 Mg Tablet) 75 mg PO BID [facility] [place]; Protocol Last Admin: 08/27/22 07:59 Dose: 75 mg Documented By: AGATA Multivitamins/Vitamin C (Multivitamin Tablet) 1 tab PO DAILY [facility] [place] Last Admin: 08/27/22 08:04 Dose: Not Given Documented By: AGATA Non-Admin Reason: Patient Refused Nystatin (Nystatin Powder 15 Gm Bottle) 1 appl TOPICAL BID [facility] [place]; Protocol Last Admin: 08/27/22 08:01 Dose: Not Given Documented By: AGATA Non-Admin Reason: Previously Administered Ondansetron HCl (Ondansetron Hcl 4 Mg/2 Ml Vial) 4 mg IVPUSH Q8H PRN PRN Reason: Nausea and Vomiting Quetiapine Fumarate (Quetiapine Fumarate 25 Mg Tablet) 25 mg PO Q8H PRN PRN Reason: anxiety/restlessness Last Admin: 08/09/22 21:28 Dose: 25 mg Documented By: MILTON Sodium Chloride (0.9 % Sodium Chloride Flush 3 Ml Syringe) 3 ml IVFLUSH QSHIFT [facility] [place] Last Admin: 08/27/22 07:59 Dose: 3 ml Documented By: AGATA Labs 08/04/22 05:55 08/25/22 07:06 Labs: Laboratory Results - last 24 hr 08/26/22 08/26/22 08/26/22 10:56 16:00 20:00 POC Glucose 266 H 194 H 141 H 08/27/22 07:01 POC Glucose 197 H Assessment and Plan (1) Neurodegenerative cognitive impairment: Status: Acute Plan 77-year-old female with hypothyroidism, [id number] type 2 diabetes, hypertension, hyperlipidemia, paroxysmal atrial fibrillation anticoagulated with Eliquis, history of invasive ductal carcinoma of the breast, and history of uterine cancer presentd with mechanical fall, afib with rvr lack Capacity 2/2 cognitive impairment evaluated by psych on admission, has no capacity to sign AMA or take medical de cisions at this point, HCP invoked pending safe discharge plan To get psych reeval for capacity to make decisions paroxysmal afib with rvr, resolved Continue eliquis, metoprolol to 75 bid with better rate control severe on echo acute on chronic diastolic chf po lasix hypotension, resolved restarted lower dose Enalapril DM with hyperglycemia insulin hypothryoid synthroid hld statin hisotry of breast and uterine cancer outpatinet oncology follow up dvt prophylaxis Eliquis full code reason for continued hospitalization: safe dispo Time Spent With Patient Time: Total time managing care of this patient today ____ minutes. Quality Stroke Does the patient have a stroke diagnosis?: No VTE Prior VTE?: No VTE Risk Level:: Medical - moderate - high VTE Device Contraindication: Treatment Not Indicated VTE Drug Contraindication: N/A - Med Ordered
[2022-08-27 11:04] VITALS: BP 148/62; PULSE 71; RESP 20; TEMP 36.2; O2SAT 96
[2022-08-27 11:13] LABS: Glucose, Whole Blood 173 mg/dL (60-115)
--- NOTE | 2022-08-27 15:04 | MHC.CM.PN ---
EMR reviewed and per MD rounds, pt medically cleared for D/C, but we continue to await the MH tiera approval and LTC placement. Pt is stating she would like to go home with her daughter Jennifer who will move here and live with her. MD has ordered a psych consult to determine capacity at this time, as patients mentation has improved recently. This CM received a call from pts niece Radha who had grave concerns about patients daughter Dori and states she only wants her to be sent to LTC and doesn't not care for her mother. Our family would like for Princess to go home and have her daughter Jennifer come lie with her and take care of her. Radha was asking if a competency test could be given to Princess to ensure that she can make her own decisions. This CM met with pt and the pt does want to go home with her daughter Jennifer. With pts permission she gave this CM Jennifer's # ([phone]) and stated we can call Jennifer to set things up with her. This CM has not contacted Jennifer at this time. CM will continue to follow.
[2022-08-27 16:00] VITALS: BP 106/56; PULSE 88; RESP 18; TEMP 36.2; O2SAT 96
[2022-08-27 16:57] LABS: Glucose, Whole Blood 120 mg/dL (60-115)
[2022-08-27 20:00] VITALS: BP 120/84; PULSE 98; RESP 18; TEMP 36; O2SAT 93
[2022-08-27 20:50] LABS: Glucose, Whole Blood 133 mg/dL (60-115)
[2022-08-27] MEDS: Atorvastatin Calcium 20 MG TABLET PO (21:55)
[2022-08-27] MEDS: Insulin Glargine,Hum.rec.anlog 100 UNIT/ML 10 ML VIAL 10 UNIT SUBCUT (21:58)
[2022-08-27] MEDS: Nystatin Powder 15 GM BOTTLE 1 APPL TOPICAL (22:07)
[2022-08-27 23:38] VITALS: BP 139/58; PULSE 87; RESP 18; TEMP 36.5; O2SAT 94
[2022-08-28 03:34] VITALS: BP 118/53; PULSE 74; RESP 18; TEMP 36.3; O2SAT 93
[2022-08-28] MEDS: Levothyroxine Sodium 112 MCG TABLET PO (06:43)
[2022-08-28 07:24] LABS: Glucose, Whole Blood 138 mg/dL (60-115)
[2022-08-28 08:00] VITALS: BP 102/54; PULSE 69; RESP 20; TEMP 36.2; O2SAT 97
--- NOTE | 2022-08-28 09:45 | MHC.CM.PN ---
EMR REVIEWED, CM CONTACTED PTS DTR REBEKAH TO UPDATE HER ON PLAN FOR PSYCHIATRIST TO RE-EVAL PT, ANTIC PLAN WILL BE FOR PT TO CHANGE HCP TO REBEKAH [phone] WHO IS WILLING TO MOVE IN W/PT TO CARE FOR HER, CM TO FOLLOW UP W/REBEKAH ONCE SHE IS SEEN BY PSYCH. CM WILL CONT TO FOLLOW.
[2022-08-28] MEDS: Aspirin Enteric Coated 81 MG TABLET.DR PO (09:46)
[2022-08-28] MEDS: Apixaban 5 MG TABLET PO ×2 (09:46→22:13)
[2022-08-28] MEDS: glipiZIDE 5 MG TABLET PO (09:47)
[2022-08-28] MEDS: Furosemide 40 MG TABLET PO (09:47)
[2022-08-28] MEDS: 0.9 % Sodium Chloride Flush 3 ML SYRINGE IVFLUSH ×2 (09:47→16:44)
[2022-08-28] MEDS: Metoprolol Tartrate 25 MG TABLET 75 MG PO ×2 (09:47→22:13)
--- NOTE | 2022-08-28 11:06 | P.PNIM_ITS ---
Subjective Subjective Date of Service: 08/28/22 Interval History: no complaints Physical Exam Vital Signs: Vital Signs: Last Vital Signs Temp 97.1 F 08/28/22 08:00 Pulse 69 08/28/22 08:00 Resp 20 08/28/22 08:00 BP 102/54 L 08/28/22 08:00 Pulse Ox 97 08/28/22 08:00 O2 Del Method Room Air 08/28/22 08:00 O2 Flow Rate 2 07/27/22 22:00 BMI result Body Mass Index 29.6 Const: Other: Constitutional : Awake, interactive Neck : Normal inspection, Supple Cardiovascular : irregular irregular, no lower extremity edema Respiratory : not in distress, chest wall moving bilaterally Skin : Warm, Dry Neurological : Alert & oriented to self and place sometimes, can get easily confused, No focal deficit Objective Data Active Medications Acetaminophen (Acetaminophen 325 Mg Tablet) 650 mg PO Q6H PRN PRN Reason: Pain, Mild (Pain Scale 1-3) Last Admin: 08/25/22 09:47 Dose: 650 mg Documented By: JB Apixaban (Apixaban 5 Mg Tablet) 5 mg PO BID [facility] Last Admin: 08/28/22 09:46 Dose: 5 mg Documented By: AGATA Aspirin (Aspirin Enteric Coated 81 Mg Tablet.Dr) 81 mg PO DAILY [facility] Last Admin: 08/28/22 09:46 Dose: 81 mg Documented By: AGATA Atorvastatin Calcium (Atorvastatin Calcium 20 Mg Tablet) 20 mg PO BEDTIME [facility] Last Admin: 08/27/22 21:55 Dose: 20 mg Documented By: GI Docusate Sodium (Docusate Sodium 100 Mg Capsule) 100 mg PO DAILY PRN PRN Reason: Constipation Last Admin: 08/22/22 17:58 Dose: 100 mg Documented By: MARISELA Enalapril Maleate (Enalapril Maleate 10 Mg Tablet) 10 mg PO DAILY [facility]; Protocol Furosemide (Furosemide 40 Mg Tablet) 40 mg PO DAILY [facility]; Protocol Last Admin: 08/28/22 09:47 Dose: 40 mg Documented By: AGATA Glipizide (Glipizide 5 Mg Tablet) 5 mg PO DAILY [facility] Last Admin: 08/28/22 09:47 Dose: 5 mg Documented By: AGATA Glucose (Glucose Gel 15 Gm Gel..Gram.) 15 gm PO Q15M PRN; Protocol PRN Reason: per Hypoglycemia Standing Ord. Dextrose (D10) 250 mls @ 750 mls/hr IV Q15M PRN; Protocol PRN Reason: per Hypoglycemia Standing Ord. Insulin Glargine (Insulin Glargine,Hum.Rec.Anlog 100 Unit/Ml 10 Ml Vial) 10 unit SUBCUT BEDTIME [facility] Last Admin: 08/27/22 21:58 Dose: 10 unit Documented By: GI Insulin Human Lispro (Insulin Lispro 100 Unit/Ml 3 Ml Vial) 0 unit SUBCUT QIDACHS [facility]; Protocol Last Admin: 08/28/22 07:35 Dose: Not Given Documented By: AGATA Non-Admin Reason: No Insulin Coverage Levothyroxine Sodium (Levothyroxine Sodium 112 Mcg Tablet) 112 mcg PO DAILY@0600 [facility] Last Admin: 08/28/22 06:43 Dose: 112 mcg Documented By: GI Metformin HCl (Metformin Hcl 850 Mg Tablet) 850 mg PO BIDWM [facility] Last Admin: 08/28/22 09:49 Dose: Not Given Documented By: AGATA Non-Admin Reason: Patient Refused Metoprolol Tartrate (Metoprolol Tartrate 25 Mg Tablet) 75 mg PO BID [facility]; Protocol Last Admin: 08/28/22 09:47 Dose: 75 mg Documented By: AGATA Multivitamins/Vitamin C (Multivitamin Tablet) 1 tab PO DAILY [facility] Last Admin: 08/28/22 09:50 Dose: Not Given Documented By: AGATA Non-Admin Reason: Patient Refused Nystatin (Nystatin Powder 15 Gm Bottle) 1 appl TOPICAL BID [facility]; Protocol Last Admin: 08/28/22 09:50 Dose: Not Given Documented By: AGATA Non-Admin Reason: Previously Administered Ondansetron HCl (Ondansetron Hcl 4 Mg/2 Ml Vial) 4 mg IVPUSH Q8H PRN PRN Reason: Nausea and Vomiting Quetiapine Fumarate (Quetiapine Fumarate 25 Mg Tablet) 25 mg PO Q8H PRN PRN Reason: anxiety/restlessness Last Admin: 08/09/22 21:28 Dose: 25 mg Documented By: MILTON Sodium Chloride (0.9 % Sodium Chloride Flush 3 Ml Syringe) 3 ml IVFLUSH QSHIFT [facility] Last Admin: 08/28/22 09:47 Dose: 3 ml Documented By: DOYAJAIRAB Labs 08/04/22 05:55 08/25/22 07:06 Labs: Laboratory Results - last 24 hr 08/27/22 08/27/22 08/27/22 11:02 16:53 20:45 POC Glucose 173 H 120 H 133 H 08/28/22 07:12 POC Glucose 138 H Assessment and Plan (1) Neurodegenerative cognitive impairment: Status: Acute Plan 77-year-old female with hypothyroidism, tdj-iyckkmy-zsdofraay type 2 diabetes, hypertension, hyperlipidemia, paroxysmal atrial fibrillation anticoagulated with Eliquis, history of invasive ductal carcinoma of the breast, and history of uterine cancer presentd with mechanical fall, afib with rvr lack Capacity 2/2 cognitive impairment evaluated by psych on admission, has no capacity to sign AMA or take medical decisions at this point, HCP invoked pending safe discharge plan To get psych reeval for capacity to make decisions regarding transfer of HCP paroxysmal afib with rvr, resolved Continue eliquis, metoprolol to 75 bid with better rate control severe on echo acute on chronic diastolic chf po lasix hypotension, resolved enapril on hold DM with hyperglycemia insulin hypothryoid synthroid hld statin history of breast and uterine cancer outpatient oncology follow up dvt prophylaxis Eliquis full code reason for continued hospitalization: safe dispo Time Spent With Patient Time: Total time managing care of this patient today ____ minutes. Quality Stroke Does the patient have a stroke diagnosis?: No VTE Prior VTE?: No VTE Risk Level:: Medical - moderate - high VTE Device Contraindication: Treatment Not Indicated VTE Drug Contraindication: N/A - Med Ordered
[2022-08-28 11:48] LABS: Glucose, Whole Blood 182 mg/dL (60-115)
[2022-08-28 12:00] VITALS: PULSE 69; RESP 20; TEMP 35.9; O2SAT 99
[2022-08-28] MEDS: Insulin Lispro 100 UNIT/ML 3 ML VIAL SUBCUT ×2 (12:03→16:42)
[2022-08-28 15:56] LABS: Glucose, Whole Blood 265 mg/dL (60-115)
[2022-08-28 16:00] VITALS: BP 145/66; PULSE 66; RESP 20; TEMP 35.1; O2SAT 94
[2022-08-28 19:11] VITALS: BP 144/85; PULSE 98; RESP 20; TEMP 36.6; O2SAT 96
[2022-08-28 20:30] LABS: Glucose, Whole Blood 132 mg/dL (60-115)
[2022-08-28] MEDS: Atorvastatin Calcium 20 MG TABLET PO (22:13)
[2022-08-28] MEDS: Nystatin Powder 15 GM BOTTLE 1 APPL TOPICAL (22:14)
[2022-08-28] MEDS: Insulin Glargine,Hum.rec.anlog 100 UNIT/ML 10 ML VIAL 10 UNIT SUBCUT (22:14)
[2022-08-28 23:27] VITALS: BP 135/70; PULSE 80; RESP 18; TEMP 36.1; O2SAT 94
[2022-08-29] MEDS: 0.9 % Sodium Chloride Flush 3 ML SYRINGE IVFLUSH ×4 (00:20→23:59)
[2022-08-29 04:00] VITALS: BP 139/59; PULSE 69; RESP 18; TEMP 36.5
[2022-08-29] MEDS: Levothyroxine Sodium 112 MCG TABLET PO (05:38)
[2022-08-29 07:11] LABS: Glucose, Whole Blood 136 mg/dL (60-115)
[2022-08-29 07:43] VITALS: BP 142/53; PULSE 80; RESP 18; TEMP 36.4; O2SAT 93
[2022-08-29] MEDS: Aspirin Enteric Coated 81 MG TABLET.DR PO (08:48)
[2022-08-29] MEDS: glipiZIDE 5 MG TABLET PO (08:48)
[2022-08-29] MEDS: Furosemide 40 MG TABLET PO (08:48)
[2022-08-29] MEDS: Apixaban 5 MG TABLET PO ×2 (08:48→20:35)
[2022-08-29] MEDS: Metoprolol Tartrate 25 MG TABLET 75 MG PO ×2 (08:48→20:34)
[2022-08-29] MEDS: Nystatin Powder 15 GM BOTTLE 1 APPL TOPICAL ×2 (08:51→20:37)
[2022-08-29 11:05] LABS: Glucose, Whole Blood 217 mg/dL (60-115)
--- NOTE | 2022-08-29 11:36 | P.PNIM_ITS ---
Subjective Subjective Date of Service: 08/29/22 Interval History: no complaints Physical Exam Vital Signs: Vital Signs: Last Vital Signs Temp 97.5 F 08/29/22 07:43 Pulse 80 08/29/22 07:43 Resp 18 08/29/22 07:43 BP 142/53 H 08/29/22 07:43 Pulse Ox 93 08/29/22 07:43 O2 Del Method Room Air 08/29/22 07:43 O2 Flow Rate 2 07/27/22 22:00 BMI result Body Mass Index 29.6 Const: Other: Constitutional : Awake, interactive Neck : Normal inspection, Supple Cardiovascular : irregular irregular, no lower extremity edema Respiratory : not in distress, chest wall moving bilaterally Skin : Warm, Dry Neurological : Alert & oriented to self and place sometimes, can get easily confused, No focal deficit Objective Data Active Medications Acetaminophen (Acetaminophen 325 Mg Tablet) 650 mg PO Q6H PRN PRN Reason: Pain, Mild (Pain Scale 1-3) Last Admin: 08/25/22 09:47 Dose: 650 mg Documented By: JB Apixaban (Apixaban 5 Mg Tablet) 5 mg PO BID [facility] Last Admin: 08/29/22 08:48 Dose: 5 mg Documented By: VIKAS Aspirin (Aspirin Enteric Coated 81 Mg Tablet.Dr) 81 mg PO DAILY [facility] Last Admin: 08/29/22 08:48 Dose: 81 mg Documented By: VIKAS Atorvastatin Calcium (Atorvastatin Calcium 20 Mg Tablet) 20 mg PO BEDTIME [facility] Last Admin: 08/28/22 22:13 Dose: 20 mg Documented By: MARISOL Docusate Sodium (Docusate Sodium 100 Mg Capsule) 100 mg PO DAILY PRN PRN Reason: Constipation Last Admin: 08/22/22 17:58 Dose: 100 mg Documented By: MARISELA Enalapril Maleate (Enalapril Maleate 10 Mg Tablet) 10 mg PO DAILY [facility]; Protocol Furosemide (Furosemide 40 Mg Tablet) 40 mg PO DAILY [facility]; Protocol Last Admin: 08/29/22 08:48 Dose: 40 mg Documented By: VIKAS Glipizide (Glipizide 5 Mg Tablet) 5 mg PO DAILY [facility] Last Admin: 08/29/22 08:48 Dose: 5 mg Documented By: VIKAS Glucose (Glucose Gel 15 Gm Gel..Gram.) 15 gm PO Q15M PRN; Protocol PRN Reason: per Hypoglycemia Standing Ord. Dextrose (D10) 250 mls @ 750 mls/hr IV Q15M PRN; Protocol PRN Reason: per Hypoglycemia Standing Ord. Insulin Glargine (Insulin Glargine,Hum.Rec.Anlog 100 Unit/Ml 10 Ml Vial) 10 unit SUBCUT BEDTIME [facility] Last Admin: 08/28/22 22:14 Dose: 10 unit Documented By: MARISOL Insulin Human Lispro (Insulin Lispro 100 Unit/Ml 3 Ml Vial) 0 unit SUBCUT QIDACHS [facility]; Protocol Last Admin: 08/29/22 08:34 Dose: Not Given Documented By: VIKAS Non-Admin Reason: No Insulin Coverage Levothyroxine Sodium (Levothyroxine Sodium 112 Mcg Tablet) 112 mcg PO DAILY@0600 [facility] Last Admin: 08/29/22 05:38 Dose: 112 mcg Documented By: LEATHA Metformin HCl (Metformin Hcl 850 Mg Tablet) 850 mg PO BIDWM [facility] Last Admin: 08/29/22 08:52 Dose: Not Given Documented By: VIKAS Non-Admin Reason: Patient Refused Metoprolol Tartrate (Metoprolol Tartrate 25 Mg Tablet) 75 mg PO BID [facility]; Protocol Last Admin: 08/29/22 08:48 Dose: 75 mg Documented By: VIKAS Multivitamins/Vitamin C (Multivitamin Tablet) 1 tab PO DAILY [facility] Last Admin: 08/29/22 08:52 Dose: Not Given Documented By: VIKAS Non-Admin Reason: Patient Refused Nystatin (Nystatin Powder 15 Gm Bottle) 1 appl TOPICAL BID [facility]; Protocol Last Admin: 08/29/22 08:51 Dose: 1 appl Documented By: VIKAS Ondansetron HCl (Ondansetron Hcl 4 Mg/2 Ml Vial) 4 mg IVPUSH Q8H PRN PRN Reason: Nausea and Vomiting Quetiapine Fumarate (Quetiapine Fumarate 25 Mg Tablet) 25 mg PO Q8H PRN PRN Reason: anxiety/restlessness Last Admin: 08/09/22 21:28 Dose: 25 mg Documented By: MILTON Sodium Chloride (0.9 % Sodium Chloride Flush 3 Ml Syringe) 3 ml IVFLUSH QSHIFT [facility] Last Admin: 08/29/22 08:50 Dose: 3 ml Documented By: VIKAS Labs 08/04/22 05:55 08/25/22 07:06 Labs: Laboratory Results - last 24 hr 08/28/22 08/28/22 08/28/22 11:38 15:52 20:22 POC Glucose 182 H 265 H 132 H 08/29/22 08/29/22 07:07 11:00 POC Glucose 136 H 217 H Assessment and Plan (1) Neurodegenerative cognitive impairment: Status: Acute Plan 77-year-old female with hypothyroidism, [id number] type 2 diabetes, hypertension, hyperlipidemia, paroxysmal atrial fibrillation anticoagulated with Eliquis, history of invasive ductal carcinoma of the breast, and history of uterine cancer presentd with mechanical fall, afib with rvr lack Capacity 2/2 cognitive impairment evaluated by psych on admission, has no capacity to sign AMA or take medical decisions at this point, HCP invoked pending safe discharge plan To get psych reeval for capacity to make decisions regarding transfer of HCP paroxysmal afib with rvr, resolved Continue eliquis, metoprolol to 75 bid with better rate control severe on echo acute on chronic diastolic chf po lasix hypotension, resolved enapril on hold DM with hyperglycemia insulin hypothryoid synthroid hld statin history of breast and uterine cancer outpatient oncology follow up dvt prophylaxis Eliquis full code reason for continued hospitalization: safe dispo Time Spent With Patient Time: Total time managing care of this patient today ____ minutes. Quality Stroke Does the patient have a stroke diagnosis?: No VTE Prior VTE?: No VTE Risk Level:: Medical - moderate - high VTE Device Contraindication: Treatment Not Indicated VTE Drug Contraindication: N/A - Med Ordered
[2022-08-29 11:47] VITALS: BP 144/62; PULSE 82; RESP 20; TEMP 36.2; O2SAT 93
[2022-08-29] MEDS: Insulin Lispro 100 UNIT/ML 3 ML VIAL SUBCUT ×2 (12:13→16:47)
[2022-08-29] MEDS: Docusate Sodium 100 MG CAPSULE PO (12:13)
[2022-08-29 15:33] VITALS: BP 144/72; PULSE 69; RESP 17; TEMP 36.2; O2SAT 96
[2022-08-29 16:07] LABS: Glucose, Whole Blood 162 mg/dL (60-115)
[2022-08-29 19:32] VITALS: BP 127/63; PULSE 107; RESP 17; TEMP 35.9; O2SAT 96
[2022-08-29 19:55] LABS: Glucose, Whole Blood 142 mg/dL (60-115)
[2022-08-29] MEDS: Insulin Glargine,Hum.rec.anlog 100 UNIT/ML 10 ML VIAL 10 UNIT SUBCUT (20:35)
[2022-08-29] MEDS: Atorvastatin Calcium 20 MG TABLET PO (20:35)
[2022-08-29 23:20] VITALS: BP 126/74; PULSE 114; RESP 18; TEMP 36.2; O2SAT 93
[2022-08-30] MEDS: QUEtiapine Fumarate 25 MG TABLET PO (00:10)
[2022-08-30] MEDS: Simethicone 80 MG TAB.CHEW PO (00:32)
[2022-08-30] MEDS: Levothyroxine Sodium 112 MCG TABLET PO (06:07)
[2022-08-30 07:13] LABS: Glucose, Whole Blood 125 mg/dL (60-115)
[2022-08-30 07:35] VITALS: BP 111/59; PULSE 66; RESP 20; TEMP 36.1; O2SAT 93
[2022-08-30] MEDS: Apixaban 5 MG TABLET PO ×2 (08:14→21:13)
[2022-08-30] MEDS: Furosemide 40 MG TABLET PO (08:14)
[2022-08-30] MEDS: glipiZIDE 5 MG TABLET PO (08:14)
[2022-08-30] MEDS: Aspirin Enteric Coated 81 MG TABLET.DR PO (08:14)
[2022-08-30] MEDS: 0.9 % Sodium Chloride Flush 3 ML SYRINGE IVFLUSH (08:18)
[2022-08-30] MEDS: Nystatin Powder 15 GM BOTTLE 1 APPL TOPICAL (08:32)
[2022-08-30] MEDS: Metoprolol Tartrate 25 MG TABLET 75 MG PO ×2 (08:32→21:13)
--- NOTE | 2022-08-30 08:50 | MHC.CM.PN ---
PT CONT'S TO WAIT FOR PSYCH EVAL TO DETERMINE IF SHE HAS THE CAPACITY TO CHANGE HER HCP SO SHE CAN GO HOME W/REBEKAH WHO WOULD LIKE TO MOVE IN W/PT SO SHE CAN RETURN HOME, CM UNSURE IF PT WILL STILL REFUSE INSULIN AND CARDIAC MEDS HOWEVER PSYCH EVAL WILL DETERMINE DISPO, CM WILL CONT TO FOLLOW.
--- NOTE | 2022-08-30 09:41 | P.PNIM_ITS ---
Subjective Subjective Date of Service: 08/30/22 Interval History: no complaints Physical Exam Vital Signs: Vital Signs: Last Vital Signs Temp 96.9 F 08/30/22 07:35 Pulse 66 08/30/22 07:35 Resp 20 08/30/22 07:35 BP 111/59 L 08/30/22 07:35 Pulse Ox 93 08/30/22 07:35 O2 Del Method Room Air 08/30/22 07:35 O2 Flow Rate 2 07/27/22 22:00 BMI result Body Mass Index 29.6 Const: Other: Constitutional : Awake, interactive Neck : Normal inspection, Supple Cardiovascular : irregular irregular, no lower extremity edema Respiratory : not in distress, chest wall moving bilaterally Skin : Warm, Dry Neurological : Alert & oriented to self and place sometimes, can get easily confused, No focal deficit Objective Data Active Medications Acetaminophen (Acetaminophen 325 Mg Tablet) 650 mg PO Q6H PRN PRN Reason: Pain, Mild (Pain Scale 1-3) Last Admin: 08/25/22 09:47 Dose: 650 mg Documented By: JB Apixaban (Apixaban 5 Mg Tablet) 5 mg PO BID [facility] Last Admin: 08/30/22 08:14 Dose: 5 mg Documented By: REGINALD Aspirin (Aspirin Enteric Coated 81 Mg Tablet.Dr) 81 mg PO DAILY [facility] Last Admin: 08/30/22 08:14 Dose: 81 mg Documented By: REGINALD Atorvastatin Calcium (Atorvastatin Calcium 20 Mg Tablet) 20 mg PO BEDTIME [facility] Last Admin: 08/29/22 20:35 Dose: 20 mg Documented By: MARISOL Docusate Sodium (Docusate Sodium 100 Mg Capsule) 100 mg PO DAILY PRN PRN Reason: Constipation Last Admin: 08/29/22 12:13 Dose: 100 mg Documented By: VIKAS Enalapril Maleate (Enalapril Maleate 10 Mg Tablet) 10 mg PO DAILY [facility]; Protocol Furosemide (Furosemide 40 Mg Tablet) 40 mg PO DAILY [facility]; Protocol Last Admin: 08/30/22 08:14 Dose: 40 mg Documented By: REGINALD Glipizide (Glipizide 5 Mg Tablet) 5 mg PO DAILY [facility] Last Admin: 08/30/22 08:14 Dose: 5 mg Documented By: REGINALD Glucose (Glucose Gel 15 Gm Gel..Gram.) 15 gm PO Q15M PRN; Protocol PRN Reason: per Hypoglycemia Standing Ord. Dextrose (D10) 250 mls @ 750 mls/hr IV Q15M PRN; Protocol PRN Reason: per Hypoglycemia Standing Ord. Insulin Glargine (Insulin Glargine,Hum.Rec.Anlog 100 Unit/Ml 10 Ml Vial) 10 unit SUBCUT BEDTIME [facility] Last Admin: 08/29/22 20:35 Dose: 10 unit Documented By: MARISOL Insulin Human Lispro (Insulin Lispro 100 Unit/Ml 3 Ml Vial) 0 unit SUBCUT QIDACHS [facility]; Protocol Last Admin: 08/30/22 07:39 Dose: Not Given Documented By: REGINALD Non-Admin Reason: No Insulin Coverage Levothyroxine Sodium (Levothyroxine Sodium 112 Mcg Tablet) 112 mcg PO DAILY@0600 [facility] Last Admin: 08/30/22 06:07 Dose: 112 mcg Documented By: LUISITO Metformin HCl (Metformin Hcl 850 Mg Tablet) 850 mg PO BIDWM [facility] Last Admin: 08/30/22 08:17 Dose: Not Given Documented By: REGINALD Non-Admin Reason: Patient Refused Metoprolol Tartrate (Metoprolol Tartrate 25 Mg Tablet) 75 mg PO BID [facility]; Protocol Last Admin: 08/30/22 08:32 Dose: 75 mg Documented By: REGINALD Multivitamins/Vitamin C (Multivitamin Tablet) 1 tab PO DAILY [facility] Last Admin: 08/30/22 08:20 Dose: Not Given Documented By: REGINALD Non-Admin Reason: Patient Refused Nystatin (Nystatin Powder 15 Gm Bottle) 1 appl TOPICAL BID [facility]; Protocol Last Admin: 08/30/22 08:32 Dose: 1 appl Documented By: REGINALD Ondansetron HCl (Ondansetron Hcl 4 Mg/2 Ml Vial) 4 mg IVPUSH Q8H PRN PRN Reason: Nausea and Vomiting Quetiapine Fumarate (Quetiapine Fumarate 25 Mg Tablet) 25 mg PO Q8H PRN PRN Reason: anxiety/restlessness Last Admin: 08/30/22 00:10 Dose: 25 mg Documented By: LUISITO Sodium Chloride (0.9 % Sodium Chloride Flush 3 Ml Syringe) 3 ml IVFLUSH QSHIFT [facility] Last Admin: 08/30/22 08:18 Dose: 3 ml Documented By: REGINALD Labs 08/04/22 05:55 08/25/22 07:06 Labs: Laboratory Results - last 24 hr 08/29/22 08/29/22 08/29/22 11:00 16:03 19:52 POC Glucose 217 H 162 H 142 H 08/30/22 07:09 POC Glucose 125 H Assessment and Plan (1) Neurodegenerative cognitive impairment: Status: Acute Plan 77-year-old female with hypothyroidism, [id number] type 2 diabetes, hypertension, hyperlipidemia, paroxysmal atrial fibrillation anticoagulated with Eliquis, history of invasive ductal carcinoma of the breast, and history of uterine cancer presentd with mechanical fall, afib with rvr lack Capacity 2/2 cognitive impairment evaluated by psych on admission, has no capacity to sign AMA or take medical decisions at this point, HCP invoked pending safe discharge plan To get psych reeval for capacity to make decisions regarding transfer of HCP paroxysmal afib with rvr, resolved Continue eliquis, metoprolol to 75 bid with better rate control severe on echo acute on chronic diastolic chf po lasix hypotension, resolved enapril on hold DM with hyperglycemia insulin hypothryoid synthroid hld statin history of breast and uterine cancer outpatient oncology follow up dvt prophylaxis Eliquis full code reason for continued hospitalization: safe dispo Time Spent With Patient Time: Total time managing care of this patient today ____ minutes. Quality Stroke Does the patient have a stroke diagnosis?: No VTE Prior VTE?: No VTE Risk Level:: Medical - moderate - high VTE Device Contraindication: Treatment Not Indicated VTE Drug Contraindication: N/A - Med Ordered
[2022-08-30 11:06] LABS: Glucose, Whole Blood 117 mg/dL (60-115)
--- NOTE | 2022-08-30 11:22 | PM.PSYCN ---
History of Present Illness Date of Service: 08/30/2022 Chief Complaint: fall, afib rvr Reason for Consult: Pt asks to change her health care proxy agent Requesting physician: Tej Rizvi Sources of Information: patient interviewed and chart reviewed Additional Sources of Information: Discussed with director case, Melissa Monson HPI Narrative: 77 yo female hospitalized with PAF, resolved, using Eliquis, Acute/chronic CHF, Hypotension, NIDDM, Hypothyroidism, HLD, History of breast/uterine cancer. HCP activated 07/29/22. Pt has requested to make a change in her agent, from her daughter, Dori to her daughter Jennifer. Met with pt who is alert, oriented to person, place,general situation. She reports the reason for the change is she believes Dori has enough responsibility and her own health issues. She believes this role is a burden for her. She reports she is planning to return to her home upon discharge and believes Jennifer will care for her in the home and is an appropriate person to take responsibility for her. She reports neither Jennifer or Dori know of her wanting to make a change and she agrees tw should make contact to get their input. She denies any other issues/concerns regarding this request. She denies any conflict and believes this will be agreed upon by both, Case review with pts resident care coordinator Melissa Monson. Call to Jennifer [phone] who reports she works in health care and has a history of work in memory care. She is in process of driving from her home in [place] and will live with pt and be her care provider. She will arrive in [place] on 08/31/22. She has not talked with Dori about the transfer but is aware of this request. Call to Dori, message left, who returned the call. She reports, as HCP she is in process of filling out a [facility] application and they are looking at long term care administrator care facilities for pt at this time. She expressed concern that there is no place for Jennifer to sleep at the home and pt will need 24/7 professional care given her unstable CHF and inability to care for herself. Dori is working on a long term care administrator plan for pt. She reports her background is nursing and Jennifer's background is nutrition. She believes she has a different perspective on pt's medical needs as she has talked with her team extensively while in hospital. She has also obtained legal consultation and states guardianship and conservatorship have been discussed as options. Pt has refused POA signing by history, and the legal consultation has raised legal and joellen questions the family will need to decide upon. Dori has also consulted with [employer]ctive [employer] for second opinion. Dori reports she has attempted to reach Jennifer, however, they have not connected. Dori also worries pt will not follow her plan of care for Jennifer and this will return to the current circumstance. Dori believs it will be best for her mother to go to long term care administrator care to stabilize and have consistent medical intervention. She reports pt's sister, Radha, has facilitated conflict in the family that she has been attempting to resolve and she will continue to do this. Message received from Jennifer during tw discussion with Dori. Return call to Jennifer who is upset. Reviewed information from pt and Dori. Encouraged communication with Dori. Jennifer stated she planned to file lawsuit against her sister and against [facility] as she has not been informed on an ongoing basis about pt's needs and that family was attempting to remove her from her home, which she does not agree to. Again, encouraged group communication so consensus may be reached. Past Psychiatric History: No known history of inpatient or outpatient psychiatric treatment. Medical Evaluation Reviewed: Yes [facility] Medical History Asymptomatic bacteriuria Atrial fibrillation Chronic anticoagulation History of uterine cancer HLD (hyperlipidemia) HTN (hypertension) Hypothyroidism Invasive ductal carcinoma of left breast Type 2 diabetes mellitus Surgical History History of hysterectomy for cancer History of knee surgery History of lumpectomy of right breast (05/25/17) History of right breast biopsy Family History: Denies Social History: Lives alone, she has VNA Trauma History: None known Diagnostics Vital Signs (24Hr): Vital Signs - 24 hr 08/29/22 11:47 08/29/22 15:33 08/29/22 19:32 Temperature 97.1 F 97.2 F 96.6 F L Pulse Rate 82 69 107 H Respiratory Rate 20 17 17 Blood Pressure 144/62 H 144/72 H 127/63 Pulse Oximetry 93 96 96 Oxygen Delivery Method Room Air Room Air Room Air 08/29/22 23:20 08/30/22 07:35 Temperature 97.1 F 96.9 F Pulse Rate 114 H 66 Respiratory Rate 18 20 Blood Pressure 126/74 111/59 L Pulse Oximetry 93 93 Oxygen Delivery Method Room Air Room Air BMI result Body Mass Index 29.6 Labs 08/04/22 05:55 08/25/22 07:06 Labs: Laboratory Results - last 48 hr 08/28/22 08/28/22 08/28/22 11:38 15:52 20:22 POC Glucose 182 H 265 H 132 H 08/29/22 08/29/22 08/29/22 07:07 11:00 16:03 POC Glucose 136 H 217 H 162 H 08/29/22 08/30/22 08/30/22 19:52 07:09 11:00 POC Glucose 142 H 125 H 117 H Imaging Radiology Impressions: ITS Impressions Chest X-Ray 07/27/22 20:30 IMPRESSION: CHF Mental Status Exam Mental Status Exam Patient Appearance: Fatigued Patient Orientation: Person, Place and Situation (general, I am waiting to go home. ) Level of Consciousness: Drowsy Patient Behavior: Talkative, Fatigued, Distractible, Confused and Good Eye Contact Mood Description: Calm Affect Description: Calm Patient Cognition Impaired: Yes Ability to Follow Directions: Fair Speech Pattern: Spontaneous Speech and Soft-Spoken Memory Description: Remote Impaired, Immediate Impaired and Episodic Impaired Hallucinations: None Delusions: Not Present Thought Process: Confusion Thought Content: positive for Circumstantial Judgement: Poor Medications Medications Current Medications Acetaminophen (Acetaminophen 325 Mg Tablet) 650 mg PO Q6H PRN PRN Reason: Pain, Mild (Pain Scale 1-3) Last Admin: 08/25/22 09:47 Dose: 650 mg Apixaban (Apixaban 5 Mg Tablet) 5 mg PO BID [facility] Last Admin: 08/30/22 08:14 Dose: 5 mg Aspirin (Aspirin Enteric Coated 81 Mg Tablet.) 81 mg PO DAILY [facility] Last Admin: 08/30/22 08:14 Dose: 81 mg Atorvastatin Calcium (Atorvastatin Calcium 20 Mg Tablet) 20 mg PO BEDTIME [facility] Last Admin: 08/29/22 20:35 Dose: 20 mg Docusate Sodium (Docusate Sodium 100 Mg Capsule) 100 mg PO DAILY PRN PRN Reason: Constipation Last Admin: 08/29/22 12:13 Dose: 100 mg Enalapril Maleate (Enalapril Maleate 10 Mg Tablet) 10 mg PO DAILY [facility]; Protocol Furosemide (Furosemide 40 Mg Tablet) 40 mg PO DAILY [facility]; Protocol Last Admin: 08/30/22 08:14 Dose: 40 mg Glipizide (Glipizide 5 Mg Tablet) 5 mg PO DAILY [facility] Last Admin: 08/30/22 08:14 Dose: 5 mg Glucose (Glucose Gel 15 Gm Gel..Gram.) 15 gm PO Q15M PRN; Protocol PRN Reason: per Hypoglycemia Standing Ord. Dextrose (D10) 250 mls @ 750 mls/hr IV Q15M PRN; Protocol PRN Reason: per Hypoglycemia Standing Ord. Insulin Glargine (Insulin Glargine,Hum.Rec.Anlog 100 Unit/Ml 10 Ml Vial) 10 unit SUBCUT BEDTIME [facility] Last Admin: 08/29/22 20:35 Dose: 10 unit Insulin Human Lispro (Insulin Lispro 100 Unit/Ml 3 Ml Vial) 0 unit SUBCUT QIDACHS [facility]; Protocol Last Admin: 08/30/22 11:13 Dose: Not Given Levothyroxine Sodium (Levothyroxine Sodium 112 Mcg Tablet) 112 mcg PO DAILY@0600 [facility] Last Admin: 08/30/22 06:07 Dose: 112 mcg Metformin HCl (Metformin Hcl 850 Mg Tablet) 850 mg PO BIDWM [facility] Last Admin: 08/30/22 08:17 Dose: Not Given Metoprolol Tartrate (Metoprolol Tartrate 25 Mg Tablet) 75 mg PO BID [facility]; Protocol Last Admin: 08/30/22 08:32 Dose: 75 mg Multivitamins/Vitamin C (Multivitamin Tablet) 1 tab PO DAILY [facility] Last Admin: 08/30/22 08:20 Dose: Not Given Nystatin (Nystatin Powder 15 Gm Bottle) 1 appl TOPICAL BID [facility]; Protocol Last Admin: 08/30/22 08:32 Dose: 1 appl Ondansetron HCl (Ondansetron Hcl 4 Mg/2 Ml Vial) 4 mg IVPUSH Q8H PRN PRN Reason: Nausea and Vomiting Quetiapine Fumarate (Quetiapine Fumarate 25 Mg Tablet) 25 mg PO Q8H PRN PRN Reason: anxiety/restlessness Last Admin: 08/30/22 00:10 Dose: 25 mg Sodium Chloride (0.9 % Sodium Chloride Flush 3 Ml Syringe) 3 ml IVFLUSH QSHIFT [facility] Last Admin: 08/30/22 08:18 Dose: 3 ml Allergies Allergies Allergy/AdvReac Type Severity Reaction Status Date / Time No Known Allergies Allergy Unverified 12/23/19 15:40 [No Known Allergies*] Assessment & Plan Assessment & Plan (1) Neurodegenerative cognitive impairment: Status: Acute Code(s): G31.9 - Degenerative disease of nervous system, unspecified Plan Pt has requested to make a change in her health care proxy from her daughter Dori to her daughter Jennifer. This was discussed with the patient, daughters Dori and Jennifer. Pt, today, does not have a good understanding of the complexities of the situation, her care needs, options, and long term care administrator needs. As a result, it is this keno writer/runner's recommendation that no change in health care proxy be made at this time. Total time managing care of this patient today ____ minutes. Informed Consent: does not understand
[2022-08-30 11:34] VITALS: BP 146/65; PULSE 68; RESP 20; TEMP 36.2; O2SAT 92
[2022-08-30] MEDS: Acetaminophen 325 MG TABLET 650 MG PO (13:30)
[2022-08-30 15:37] VITALS: BP 139/69; PULSE 71; RESP 16; TEMP 36.5
[2022-08-30 16:17] LABS: Glucose, Whole Blood 145 mg/dL (60-115)
[2022-08-30 20:00] VITALS: BP 163/65; PULSE 56; RESP 22; TEMP 36.9; O2SAT 93
[2022-08-30 21:11] LABS: Glucose, Whole Blood 185 mg/dL (60-115)
[2022-08-30] MEDS: Insulin Glargine,Hum.rec.anlog 100 UNIT/ML 10 ML VIAL 10 UNIT SUBCUT (21:12)
[2022-08-30] MEDS: Insulin Lispro 100 UNIT/ML 3 ML VIAL SUBCUT (21:12)
[2022-08-30] MEDS: Atorvastatin Calcium 20 MG TABLET PO (21:13)
[2022-08-30 21:14] VITALS: BP 162/65; PULSE 60; RESP 20
[2022-08-30 23:39] VITALS: BP 145/60; PULSE 69; RESP 18; TEMP 36.8; O2SAT 96
[2022-08-31 03:18] VITALS: BP 115/65; PULSE 71; RESP 20; TEMP 36.8; O2SAT 97
[2022-08-31] MEDS: Levothyroxine Sodium 112 MCG TABLET PO (05:24)
[2022-08-31 07:25] VITALS: BP 148/65; PULSE 68; RESP 20; TEMP 36.1; O2SAT 95
[2022-08-31 07:54] LABS: Glucose, Whole Blood 166 mg/dL (60-115)
--- NOTE | 2022-08-31 07:57 | P.PNIM_ITS ---
Subjective Subjective Date of Service: 08/31/22 Interval History: no complaints Physical Exam Vital Signs: Vital Signs: Last Vital Signs Temp 97.0 F 08/31/22 07:25 Pulse 68 08/31/22 07:25 Resp 20 08/31/22 07:25 BP 148/65 H 08/31/22 07:25 Pulse Ox 95 08/31/22 07:25 O2 Del Method Room Air 08/31/22 07:25 O2 Flow Rate 2 07/27/22 22:00 FiO2 35 08/31/22 03:18 BMI result Body Mass Index 29.6 Const: Other: Constitutional : Awake, interactive Neck : Normal inspection, Supple Cardiovascular : irregular irregular, no lower extremity edema Respiratory : not in distress, chest wall moving bilaterally Skin : Warm, Dry Neurological : Alert & oriented to self and place sometimes, can get easily confused, No focal deficit Objective Data Active Medications Acetaminophen (Acetaminophen 325 Mg Tablet) 650 mg PO Q6H PRN PRN Reason: Pain, Mild (Pain Scale 1-3) Last Admin: 08/30/22 13:30 Dose: 650 mg Documented By: REGINALD Apixaban (Apixaban 5 Mg Tablet) 5 mg PO BID [facility] Last Admin: 08/30/22 21:13 Dose: 5 mg Documented By: MILTON Aspirin (Aspirin Enteric Coated 81 Mg Tablet.) 81 mg PO DAILY [facility] Last Admin: 08/30/22 08:14 Dose: 81 mg Documented By: REGINALD Atorvastatin Calcium (Atorvastatin Calcium 20 Mg Tablet) 20 mg PO BEDTIME [facility] Last Admin: 08/30/22 21:13 Dose: 20 mg Documented By: MILTON Docusate Sodium (Docusate Sodium 100 Mg Capsule) 100 mg PO DAILY PRN PRN Reason: Constipation Last Admin: 08/29/22 12:13 Dose: 100 mg Documented By: VIKAS Enalapril Maleate (Enalapril Maleate 10 Mg Tablet) 10 mg PO DAILY [facility]; Protocol Furosemide (Furosemide 40 Mg Tablet) 40 mg PO DAILY [facility]; Protocol Last Admin: 08/30/22 08:14 Dose: 40 mg Documented By: REGINALD Glipizide (Glipizide 5 Mg Tablet) 5 mg PO DAILY [facility] Last Admin: 08/30/22 08:14 Dose: 5 mg Documented By: REGINALD Glucose (Glucose Gel 15 Gm Gel..Gram.) 15 gm PO Q15M PRN; Protocol PRN Reason: per Hypoglycemia Standing Ord. Dextrose (D10) 250 mls @ 750 mls/hr IV Q15M PRN; Protocol PRN Reason: per Hypoglycemia Standing Ord. Insulin Glargine (Insulin Glargine,Hum.Rec.Anlog 100 Unit/Ml 10 Ml Vial) 10 unit SUBCUT BEDTIME [facility] Last Admin: 08/30/22 21:12 Dose: 10 unit Documented By: MILTON Insulin Human Lispro (Insulin Lispro 100 Unit/Ml 3 Ml Vial) 0 unit SUBCUT QIDACHS [facility]; Protocol Last Admin: 08/30/22 21:12 Dose: 2 unit Documented By: MILTON Levothyroxine Sodium (Levothyroxine Sodium 112 Mcg Tablet) 112 mcg PO DAILY@0600 [facility] Last Admin: 08/31/22 05:24 Dose: 112 mcg Documented By: MILTON Metformin HCl (Metformin Hcl 850 Mg Tablet) 850 mg PO BIDWM [facility] Last Admin: 08/30/22 16:52 Dose: Not Given Documented By: REGINALD Non-Admin Reason: Patient Refused Metoprolol Tartrate (Metoprolol Tartrate 25 Mg Tablet) 75 mg PO BID [facility]; Protocol Last Admin: 08/30/22 21:13 Dose: 75 mg Documented By: MILTON Multivitamins/Vitamin C (Multivitamin Tablet) 1 tab PO DAILY [facility] Last Admin: 08/30/22 08:20 Dose: Not Given Documented By: REGINALD Non-Admin Reason: Patient Refused Nystatin (Nystatin Powder 15 Gm Bottle) 1 appl TOPICAL BID [facility]; Protocol Last Admin: 08/30/22 21:19 Dose: Not Given Documented By: MILTON Non-Admin Reason: Patient Refused Ondansetron HCl (Ondansetron Hcl 4 Mg/2 Ml Vial) 4 mg IVPUSH Q8H PRN PRN Reason: Nausea and Vomiting Quetiapine Fumarate (Quetiapine Fumarate 25 Mg Tablet) 25 mg PO Q8H PRN PRN Reason: anxiety/restlessness Last Admin: 08/30/22 00:10 Dose: 25 mg Documented By: LUISITO Sodium Chloride (0.9 % Sodium Chloride Flush 3 Ml Syringe) 3 ml IVFLUSH QSHIFT [facility] Last Admin: 08/31/22 00:04 Dose: Not Given Documented By: MILTON Non-Admin Reason: Patient Asleep Labs 08/04/22 05:55 08/25/22 07:06 Labs: Laboratory Results - last 24 hr 08/30/22 08/30/22 08/30/22 11:00 16:13 21:07 POC Glucose 117 H 145 H 185 H 08/31/22 07:23 POC Glucose 166 H Assessment and Plan (1) Neurodegenerative cognitive impairment: Status: Acute Plan 77-year-old female with hypothyroidism, eeu-cldfpxz-ufdmmegeh type 2 diabetes, hypertension, hyperlipidemia, paroxysmal atrial fibrillation anticoagulated with Eliquis, history of invasive ductal carcinoma of the breast, and history of uterine cancer presentd with mechanical fall, afib with rvr lack Capacity 2/2 cognitive impairment evaluated by psych on admission, has no capacity to sign AMA or take medical decisions at this point, HCP invoked pending safe discharge plan seen by psych again 08/30/22 to eval capacity to change HCP, does not appear to have capacity for that decision as well. paroxysmal afib with rvr, resolved Continue eliquis, metoprolol to 75 bid with better rate control severe on echo acute on chronic diastolic chf po lasix hypotension, resolved enapril on hold DM with hyperglycemia insulin hypothryoid synthroid hld statin history of breast and uterine cancer outpatient oncology follow up dvt prophylaxis Eliquis full code reason for continued hospitalization: safe dispo Time Spent With Patient Time: Total time managing care of this patient today ____ minutes. Quality Stroke Does the patient have a stroke diagnosis?: No VTE Prior VTE?: No VTE Risk Level:: Medical - moderate - high VTE Device Contraindication: Treatment Not Indicated VTE Drug Contraindication: N/A - Med Ordered
[2022-08-31] MEDS: Insulin Lispro 100 UNIT/ML 3 ML VIAL SUBCUT ×4 (08:10→20:33)
[2022-08-31] MEDS: Apixaban 5 MG TABLET PO ×2 (08:11→20:33)
[2022-08-31] MEDS: glipiZIDE 5 MG TABLET PO (08:11)
[2022-08-31] MEDS: Furosemide 40 MG TABLET PO (08:11)
[2022-08-31] MEDS: Aspirin Enteric Coated 81 MG TABLET.DR PO (08:11)
[2022-08-31] MEDS: Metoprolol Tartrate 25 MG TABLET 75 MG PO ×2 (08:11→20:33)
[2022-08-31] MEDS: 0.9 % Sodium Chloride Flush 3 ML SYRINGE IVFLUSH ×3 (08:12→20:42)
[2022-08-31 11:30] VITALS: BP 137/70; PULSE 68; RESP 20; TEMP 36.1; O2SAT 97
[2022-08-31 11:51] LABS: Glucose, Whole Blood 259 mg/dL (60-115)
--- NOTE | 2022-08-31 15:39 | MHC.CM.PN ---
PT'S SISTER IN TO VISIT AND REQUESTED TO SPEAK WITH THIS CM REGARDING HCP ISSUES. PT'S DAUGHTER REBEKAH WAS ON SPEAKER PHONE WELL. THIS CM AGAIN INFORMED THE FAMILY THAT NO INFORMATION COULD BE GIVEN TO ANYONE BUT THE HCP. ALL PARTIES WERE EMOTIONAL AND UPSET, SUPPORT GIVEN AND RE-DIRECTED TO SPEAK AND WORK WITH HCP ON A RESOLUTION. CM WILL CONTINUE TO FOLLOW.
[2022-08-31 15:58] VITALS: BP 152/67; PULSE 66; RESP 20; TEMP 36; O2SAT 94
[2022-08-31 16:46] LABS: Glucose, Whole Blood 202 mg/dL (60-115)
[2022-08-31 19:37] VITALS: BP 148/95; PULSE 110; RESP 20; TEMP 36; O2SAT 94
[2022-08-31 20:28] LABS: Glucose, Whole Blood 187 mg/dL (60-115)
[2022-08-31] MEDS: Insulin Glargine,Hum.rec.anlog 100 UNIT/ML 10 ML VIAL 10 UNIT SUBCUT (20:33)
[2022-08-31] MEDS: QUEtiapine Fumarate 25 MG TABLET PO (20:33)
[2022-08-31] MEDS: Atorvastatin Calcium 20 MG TABLET PO (20:33)
[2022-08-31] MEDS: Magnesium Hydrox/Alum Hydrox 30 ML ORAL.SUSP PO (23:59)
[2022-09-01] VITALS (7 sets, daily range): BP systolic 118–160; BP diastolic 50–60; PULSE 65–98; RESP 18–20; TEMP 36–36.3; O2SAT 92–97
[2022-09-01] MEDS: Levothyroxine Sodium 112 MCG TABLET PO (05:45)
[2022-09-01 07:06] LABS: Creatinine Clr Calc Pharmacy 47.8; Estimated Glomerular Filt Rate > 60
[2022-09-01 08:05] LABS: Glucose, Whole Blood 61 mg/dL (60-115)
[2022-09-01] MEDS: Metoprolol Tartrate 25 MG TABLET 75 MG PO ×2 (08:46→20:44)
[2022-09-01] MEDS: glipiZIDE 5 MG TABLET PO (08:47)
[2022-09-01] MEDS: Apixaban 5 MG TABLET PO ×2 (08:47→20:44)
[2022-09-01] MEDS: Furosemide 40 MG TABLET PO (08:47)
[2022-09-01] MEDS: 0.9 % Sodium Chloride Flush 3 ML SYRINGE IVFLUSH ×2 (08:51→16:55)
[2022-09-01] MEDS: Aspirin Enteric Coated 81 MG TABLET.DR PO (08:57)
[2022-09-01] MEDS: Glucose Gel 15 GM GEL..GRAM. PO (08:59)
--- NOTE | 2022-09-01 09:25 | P.PNIM_ITS ---
Subjective Subjective Date of Service: 09/01/22 Interval History: no complaints Physical Exam Vital Signs: Vital Signs: Last Vital Signs Temp 97.4 F 09/01/22 07:45 Pulse 67 09/01/22 07:45 Resp 20 09/01/22 07:45 BP 120/55 L 09/01/22 07:45 Pulse Ox 92 09/01/22 07:45 O2 Del Method Room Air 09/01/22 07:45 O2 Flow Rate 2 07/27/22 22:00 FiO2 35 08/31/22 03:18 BMI result Body Mass Index 29.6 Const: Other: Constitutional : Awake, interactive Neck : Normal inspection, Supple Cardiovascular : irregular irregular, no lower extremity edema Respiratory : not in distress, chest wall moving bilaterally Skin : Warm, Dry Neurological : Alert & oriented to self and place sometimes, can get easily confused, No focal deficit Objective Data Active Medications Acetaminophen (Acetaminophen 325 Mg Tablet) 650 mg PO Q6H PRN PRN Reason: Pain, Mild (Pain Scale 1-3) Last Admin: 08/30/22 13:30 Dose: 650 mg Documented By: REGINALD Apixaban (Apixaban 5 Mg Tablet) 5 mg PO BID [facility] Last Admin: 09/01/22 08:47 Dose: 5 mg Documented By: [place] Aspirin (Aspirin Enteric Coated 81 Mg Tablet.) 81 mg PO DAILY [facility] Last Admin: 08/31/22 08:11 Dose: 81 mg Documented By: [place] Atorvastatin Calcium (Atorvastatin Calcium 20 Mg Tablet) 20 mg PO BEDTIME [facility] Last Admin: 08/31/22 20:33 Dose: 20 mg Documented By: MILTON Docusate Sodium (Docusate Sodium 100 Mg Capsule) 100 mg PO DAILY PRN PRN Reason: Constipation Last Admin: 08/29/22 12:13 Dose: 100 mg Documented By: VIKAS Enalapril Maleate (Enalapril Maleate 10 Mg Tablet) 10 mg PO DAILY [facility]; Protocol Furosemide (Furosemide 40 Mg Tablet) 40 mg PO DAILY [facility]; Protocol Last Admin: 09/01/22 08:47 Dose: 40 mg Documented By: [place] Glipizide (Glipizide 5 Mg Tablet) 5 mg PO DAILY [facility] Last Admin: 09/01/22 08:47 Dose: 5 mg Documented By: [place] Glucose (Glucose Gel 15 Gm Gel..Gram.) 15 gm PO Q15M PRN; Protocol PRN Reason: per Hypoglycemia Standing Ord. Last Admin: 09/01/22 08:59 Dose: 15 gm Documented By: [place] Dextrose (D10) 250 mls @ 750 mls/hr IV Q15M PRN; Protocol PRN Reason: per Hypoglycemia Standing Ord. Insulin Glargine (Insulin Glargine,Hum.Rec.Anlog 100 Unit/Ml 10 Ml Vial) 10 unit SUBCUT BEDTIME [facility] Last Admin: 08/31/22 20:33 Dose: 10 unit Documented By: MILTON Insulin Human Lispro (Insulin Lispro 100 Unit/Ml 3 Ml Vial) 0 unit SUBCUT QIDACHS [facility]; Protocol Last Admin: 09/01/22 08:07 Dose: Not Given Documented By: [place] Non-Admin Reason: No Insulin Coverage Levothyroxine Sodium (Levothyroxine Sodium 112 Mcg Tablet) 112 mcg PO DAILY@0600 [facility] Last Admin: 09/01/22 05:45 Dose: 112 mcg Documented By: MILTON Metformin HCl (Metformin Hcl 850 Mg Tablet) 850 mg PO BIDWM [facility] Last Admin: 09/01/22 07:46 Dose: Not Given Documented By: [place] Non-Admin Reason: Patient Refused Metoprolol Tartrate (Metoprolol Tartrate 25 Mg Tablet) 75 mg PO BID [facility]; Protocol Last Admin: 09/01/22 08:46 Dose: 75 mg Documented By: [place] Multivitamins/Vitamin C (Multivitamin Tablet) 1 tab PO DAILY [facility] Last Admin: 09/01/22 07:46 Dose: Not Given Documented By: [place] Non-Admin Reason: Patient Refused Nystatin (Nystatin Powder 15 Gm Bottle) 1 appl TOPICAL BID [facility]; Protocol Last Admin: 08/31/22 20:42 Dose: Not Given Documented By: MILTON Non-Admin Reason: Patient Refused Ondansetron HCl (Ondansetron Hcl 4 Mg/2 Ml Vial) 4 mg IVPUSH Q8H PRN PRN Reason: Nausea and Vomiting Quetiapine Fumarate (Quetiapine Fumarate 25 Mg Tablet) 25 mg PO Q8H PRN PRN Reason: anxiety/restlessness Last Admin: 08/31/22 20:33 Dose: 25 mg Documented By: MILTON Sodium Chloride (0.9 % Sodium Chloride Flush 3 Ml Syringe) 3 ml IVFLUSH [facility] Last Admin: 09/01/22 08:51 Dose: 3 ml Documented By: [place] Labs 08/04/22 05:55 09/01/22 06:35 Labs: Laboratory Results - last 24 hr 08/31/22 08/31/22 08/31/22 11:27 16:35 20:24 Estim Creat Clear Calc Estimated GFR POC Glucose 259 H 202 H 187 H 09/01/22 09/01/22 06:35 07:44 Estim Creat Clear Calc 47.8 Estimated GFR > 60 POC Glucose 61 Assessment and Plan (1) Neurodegenerative cognitive impairment: Status: Acute Plan 77-year-old female with hypothyroidism, [id number]-qhcvhoogu type 2 diabetes, hypertension, hyperlipidemia, paroxysmal atrial fibrillation anticoagulated with Eliquis, history of invasive ductal carcinoma of the breast, and history of uterine cancer presentd with mechanical fall, afib with rvr lack Capacity 2/2 cognitive impairment evaluated by psych on admission, has no capacity to sign AMA or take medical decisions at this point, HCP invoked pending safe discharge plan seen by psych again 08/30/22 to eval capacity to change HCP, does not appear to have capacity for that decision as well. paroxysmal afib with rvr, resolved Continue eliquis, metoprolol to 75 bid with better rate control severe on echo acute on chronic diastolic chf po lasix hypotension, resolved enapril on hold DM with hyperglycemia insulin hypothryoid synthroid hld statin history of breast and uterine cancer outpatient oncology follow up dvt prophylaxis Eliquis full code reason for continued hospitalization: safe dispo Time Spent With Patient Time: Total time managing care of this patient today ____ minutes. Quality Stroke Does the patient have a stroke diagnosis?: No VTE Prior VTE?: No VTE Risk Level:: Medical - moderate - high VTE Device Contraindication: Treatment Not Indicated VTE Drug Contraindication: N/A - Med Ordered
[2022-09-01 09:26] LABS: Glucose, Whole Blood 121 mg/dL (60-115)
[2022-09-01 09:26] LABS: Glucose, Whole Blood 53 mg/dL (60-115)
--- NOTE | 2022-09-01 11:07 | PC.NURSE ---
at 0744 pt's blood sugar was 61. As pt was about to eat breakfast, health technical writer waited to recheck sugar after breakfast. At [address] Rizvi was contacted and made aware of pt's status. pt consumed approx 1/3 of a tube of glucose gel, refusing the remainder. Pt then drank approx 1/3 a cup of juice, again refusing the remainder. Pt's blood sugar was 121 when rechecked at 0921.
[2022-09-01 11:50] LABS: Glucose, Whole Blood 197 mg/dL (60-115)
[2022-09-01] MEDS: Insulin Lispro 100 UNIT/ML 3 ML VIAL SUBCUT ×3 (11:56→20:45)
[2022-09-01 16:08] LABS: Glucose, Whole Blood 157 mg/dL (60-115)
[2022-09-01 20:30] LABS: Glucose, Whole Blood 194 mg/dL (60-115)
[2022-09-01] MEDS: Atorvastatin Calcium 20 MG TABLET PO (20:42)
[2022-09-01] MEDS: Insulin Glargine,Hum.rec.anlog 100 UNIT/ML 10 ML VIAL 10 UNIT SUBCUT (20:46)
[2022-09-02] VITALS (7 sets, daily range): BP systolic 125–154; BP diastolic 54–85; PULSE 66–100; RESP 18–24; TEMP 35.9–36.4; O2SAT 94–96
[2022-09-02] MEDS: 0.9 % Sodium Chloride Flush 3 ML SYRINGE IVFLUSH ×4 (02:27→21:03)
[2022-09-02] MEDS: Levothyroxine Sodium 112 MCG TABLET PO (06:07)
[2022-09-02 07:37] LABS: Glucose, Whole Blood 87 mg/dL (60-115)
[2022-09-02 07:37] LABS: Glucose, Whole Blood 46 mg/dL (60-115)
[2022-09-02 07:49] LABS: Glucose, Whole Blood 53 mg/dL (60-115)
[2022-09-02] MEDS: Apixaban 5 MG TABLET PO ×2 (07:58→21:01)
[2022-09-02] MEDS: Aspirin Enteric Coated 81 MG TABLET.DR PO (07:58)
[2022-09-02] MEDS: Metoprolol Tartrate 25 MG TABLET 75 MG PO ×2 (07:58→21:00)
[2022-09-02] MEDS: Furosemide 40 MG TABLET PO (07:59)
--- NOTE | 2022-09-02 08:29 | P.PNIM_ITS ---
Subjective Subjective Date of Service: 09/02/22 Interval History: no complaints Physical Exam Vital Signs: Vital Signs: Last Vital Signs Temp 96.7 F L 09/02/22 08:13 Pulse 68 09/02/22 08:13 Resp 18 09/02/22 08:13 BP 140/66 H 09/02/22 08:13 Pulse Ox 95 09/02/22 08:13 O2 Del Method Room Air 09/02/22 08:13 O2 Flow Rate 2 07/27/22 22:00 FiO2 35 08/31/22 03:18 BMI result Body Mass Index 29.6 Const: Other: Constitutional : Awake, interactive Neck : Normal inspection, Supple Cardiovascular : irregular irregular, no lower extremity edema Respiratory : not in distress, chest wall moving bilaterally Skin : Warm, Dry Neurological : Alert & oriented to self and place sometimes, can get easily confused, No focal deficit Objective Data Active Medications Acetaminophen (Acetaminophen 325 Mg Tablet) 650 mg PO Q6H PRN PRN Reason: Pain, Mild (Pain Scale 1-3) Last Admin: 08/30/22 13:30 Dose: 650 mg Documented By: REGINALD Apixaban (Apixaban 5 Mg Tablet) 5 mg PO BID [facility] Last Admin: 09/02/22 07:58 Dose: 5 mg Documented By: REGINALD Aspirin (Aspirin Enteric Coated 81 Mg Tablet.) 81 mg PO DAILY [facility] Last Admin: 09/02/22 07:58 Dose: 81 mg Documented By: REGINALD Atorvastatin Calcium (Atorvastatin Calcium 20 Mg Tablet) 20 mg PO BEDTIME [facility] Last Admin: 09/01/22 20:42 Dose: 20 mg Documented By: DREA Docusate Sodium (Docusate Sodium 100 Mg Capsule) 100 mg PO DAILY PRN PRN Reason: Constipation Last Admin: 08/29/22 12:13 Dose: 100 mg Documented By: VIKAS Enalapril Maleate (Enalapril Maleate 10 Mg Tablet) 10 mg PO DAILY [facility]; Protocol Furosemide (Furosemide 40 Mg Tablet) 40 mg PO DAILY [facility]; Protocol Last Admin: 09/02/22 07:59 Dose: 40 mg Documented By: REGINALD Glipizide (Glipizide 5 Mg Tablet) 5 mg PO DAILY [facility] Last Admin: 09/02/22 07:58 Dose: Not Given Documented By: REGINALD Non-Admin Reason: low BS Glucose (Glucose Gel 15 Gm Gel..Gram.) 15 gm PO Q15M PRN; Protocol PRN Reason: per Hypoglycemia Standing Ord. Last Admin: 09/01/22 08:59 Dose: 15 gm Documented By: [place] Dextrose (D10) 250 mls @ 750 mls/hr IV Q15M PRN; Protocol PRN Reason: per Hypoglycemia Standing Ord. Insulin Human Lispro (Insulin Lispro 100 Unit/Ml 3 Ml Vial) 0 unit SUBCUT QIDACHS [facility]; Protocol Last Admin: 09/02/22 08:00 Dose: Not Given Levothyroxine Sodium (Levothyroxine Sodium 112 Mcg Tablet) 112 mcg PO DAILY@0600 [facility] Last Admin: 09/02/22 06:07 Dose: 112 mcg Documented By: ANTONY Metformin HCl (Metformin Hcl 850 Mg Tablet) 850 mg PO BIDWM [facility] Last Admin: 09/02/22 07:24 Dose: Not Given Documented By: REGINALD Non-Admin Reason: Patient Refused Metoprolol Tartrate (Metoprolol Tartrate 25 Mg Tablet) 75 mg PO BID [facility]; Protocol Last Admin: 09/02/22 07:58 Dose: 75 mg Documented By: REGINALD Multivitamins/Vitamin C (Multivitamin Tablet) 1 tab PO DAILY [facility] Last Admin: 09/02/22 07:24 Dose: Not Given Documented By: REGINALD Non-Admin Reason: Patient Refused Nystatin (Nystatin Powder 15 Gm Bottle) 1 appl TOPICAL BID [facility]; Protocol Last Admin: 09/02/22 07:59 Dose: Not Given Documented By: REGINALD Non-Admin Reason: Patient Refused Ondansetron HCl (Ondansetron Hcl 4 Mg/2 Ml Vial) 4 mg IVPUSH Q8H PRN PRN Reason: Nausea and Vomiting Quetiapine Fumarate (Quetiapine Fumarate 25 Mg Tablet) 25 mg PO Q8H PRN PRN Reason: anxiety/restlessness Last Admin: 08/31/22 20:33 Dose: 25 mg Documented By: MILTON Sodium Chloride (0.9 % Sodium Chloride Flush 3 Ml Syringe) [address] [facility] Last Admin: 09/02/22 07:58 Dose: 3 ml Documented By: REGINALD Labs 08/04/22 05:55 09/01/22 06:35 Labs: Laboratory Results - last 24 hr 09/01/22 09/01/22 09/01/22 08:56 09:21 11:34 POC Glucose 53 L* 121 H 197 H 09/01/22 09/01/22 09/02/22 15:57 20:27 07:27 POC Glucose 157 H 194 H 46 L* 09/02/22 09/02/22 07:31 07:45 POC Glucose 87 53 L* Assessment and Plan (1) Neurodegenerative cognitive impairment: Status: Acute Plan 77-year-old female with hypothyroidism, [id number] type 2 diabetes, hypertension, hyperlipidemia, paroxysmal atrial fibrillation anticoagulated with Eliquis, history of invasive ductal carcinoma of the breast, and history of ut erine cancer presentd with mechanical fall, afib with rvr lack Capacity 2/2 cognitive impairment evaluated by psych on admission, has no capacity to sign AMA or take medical decisions at this point, HCP invoked pending safe discharge plan seen by psych again 08/30/22 to eval capacity to change HCP, does not appear to have capacity for that decision as well. paroxysmal afib with rvr, resolved Continue eliquis, metoprolol to 75 bid with better rate control severe on echo acute on chronic diastolic chf po lasix hypotension, resolved enapril on hold DM with hyperglycemia and hypoglycemia insulin, glargine disconitnued hypothryoid synthroid hld statin history of breast and uterine cancer outpatient oncology follow up dvt prophylaxis Eliquis full code reason for continued hospitalization: safe dispo Time Spent With Patient Time: Total time managing care of this patient today ____ minutes. Quality Stroke Does the patient have a stroke diagnosis?: No VTE Prior VTE?: No VTE Risk Level:: Medical - moderate - high VTE Device Contraindication: Treatment Not Indicated VTE Drug Contraindication: N/A - Med Ordered
[2022-09-02 11:33] LABS: Glucose, Whole Blood 173 mg/dL (60-115)
[2022-09-02] MEDS: Insulin Lispro 100 UNIT/ML 3 ML VIAL SUBCUT ×2 (11:51→21:02)
[2022-09-02] MEDS: Acetaminophen 325 MG TABLET 650 MG PO (15:05)
[2022-09-02 16:52] LABS: Glucose, Whole Blood 137 mg/dL (60-115)
[2022-09-02 20:52] LABS: Glucose, Whole Blood 188 mg/dL (60-115)
[2022-09-02] MEDS: Atorvastatin Calcium 20 MG TABLET PO (21:01)
[2022-09-03 03:03] VITALS: BP 129/61; PULSE 68; RESP 14; TEMP 36.1; O2SAT 93
[2022-09-03] MEDS: Levothyroxine Sodium 112 MCG TABLET PO (06:15)
[2022-09-03 07:09] VITALS: BP 138/61; PULSE 69; RESP 20; TEMP 36.1; O2SAT 96
[2022-09-03 07:36] LABS: Glucose, Whole Blood 236 mg/dL (60-115)
[2022-09-03] MEDS: Metoprolol Tartrate 25 MG TABLET 75 MG PO ×2 (08:02→22:00)
[2022-09-03] MEDS: Insulin Lispro 100 UNIT/ML 3 ML VIAL SUBCUT ×4 (08:02→22:00)
[2022-09-03] MEDS: 0.9 % Sodium Chloride Flush 3 ML SYRINGE IVFLUSH ×3 (08:02→22:00)
[2022-09-03] MEDS: Apixaban 5 MG TABLET PO ×2 (08:03→21:59)
[2022-09-03] MEDS: Aspirin Enteric Coated 81 MG TABLET.DR PO (08:03)
[2022-09-03] MEDS: Furosemide 40 MG TABLET PO (08:03)
[2022-09-03] MEDS: glipiZIDE 5 MG TABLET PO (08:03)
[2022-09-03] MEDS: Docusate Sodium 100 MG CAPSULE PO (08:24)
--- NOTE | 2022-09-03 09:28 | HO.PM.IMPN ---
Subjective Subjective Date of Service: 09/03/22 Interval History: no complaints Physical Exam Vital Signs: Vital Signs: Last Vital Signs Temp 96.9 F 09/03/22 07:09 Pulse 69 09/03/22 07:09 Resp 20 09/03/22 07:09 BP 138/61 09/03/22 07:09 Pulse Ox 96 09/03/22 07:09 O2 Del Method Room Air 09/03/22 07:09 O2 Flow Rate 2 07/27/22 22:00 FiO2 35 08/31/22 03:18 BMI result Body Mass Index 29.6 Const: Other: Constitutional : Awake, interactive Neck : Normal inspection, Supple Cardiovascular : irregular irregular, no lower extremity edema Respiratory : not in distress, chest wall moving bilaterally Skin : Warm, Dry Neurological : Alert & oriented to self and place sometimes, can get easily confused, No focal deficit Objective Data Active Medications Acetaminophen (Acetaminophen 325 Mg Tablet) 650 mg PO Q6H PRN PRN Reason: Pain, Mild (Pain Scale 1-3) Last Admin: 09/02/22 15:05 Dose: 650 mg Documented By: REGINALD Apixaban (Apixaban 5 Mg Tablet) 5 mg PO BID [facility] Last Admin: 09/03/22 08:03 Dose: 5 mg Documented By: REGINALD Aspirin (Aspirin Enteric Coated 81 Mg Tablet.) 81 mg PO DAILY [facility] Last Admin: 09/03/22 08:03 Dose: 81 mg Documented By: REGINALD Atorvastatin Calcium (Atorvastatin Calcium 20 Mg Tablet) 20 mg PO BEDTIME [facility] Last Admin: 09/02/22 21:01 Dose: 20 mg Documented By: CAYLA Docusate Sodium (Docusate Sodium 100 Mg Capsule) 100 mg PO DAILY PRN PRN Reason: Constipation Last Admin: 09/03/22 08:24 Dose: 100 mg Documented By: REGINALD Enalapril Maleate (Enalapril Maleate 10 Mg Tablet) 10 mg PO DAILY [facility]; Protocol Furosemide (Furosemide 40 Mg Tablet) 40 mg PO DAILY [facility]; Protocol Last Admin: 09/03/22 08:03 Dose: 40 mg Documented By: REGINALD Glipizide (Glipizide 5 Mg Tablet) 5 mg PO DAILY [facility] Last Admin: 09/03/22 08:03 Dose: 5 mg Documented By: REGINALD Glucose (Glucose Gel 15 Gm Gel..Gram.) 15 gm PO Q15M PRN; Protocol PRN Reason: per Hypoglycemia Standing Ord. Last Admin: 09/01/22 08:59 Dose: 15 gm Documented By: [place] Dextrose (D10) 250 mls @ 750 mls/hr IV Q15M PRN; Protocol PRN Reason: per Hypoglycemia Standing Ord. Insulin Human Lispro (Insulin Lispro 100 Unit/Ml 3 Ml Vial) 0 unit SUBCUT QIDACHS [facility]; Protocol Last Admin: 09/03/22 08:02 Dose: 4 unit Documented By: REGINALD Levothyroxine Sodium (Levothyroxine Sodium 112 Mcg Tablet) 112 mcg PO DAILY@0600 [facility] Last Admin: 09/03/22 06:15 Dose: 112 mcg Documented By: CAYLA Metformin HCl (Metformin Hcl 850 Mg Tablet) 850 mg PO BIDWM [facility] Last Admin: 09/03/22 08:03 Dose: Not Given Documented By: REGINALD Non-Admin Reason: Patient Refused Metoprolol Tartrate (Metoprolol Tartrate 25 Mg Tablet) 75 mg PO BID [facility]; Protocol Last Admin: 09/03/22 08:02 Dose: 75 mg Documented By: REGINALD Multivitamins/Vitamin C (Multivitamin Tablet) 1 tab PO DAILY [facility] Last Admin: 09/03/22 08:03 Dose: Not Given Documented By: REGINALD Non-Admin Reason: Patient Refused Nystatin (Nystatin Powder 15 Gm Bottle) 1 appl TOPICAL BID [facility]; Protocol Last Admin: 09/03/22 08:03 Dose: Not Given Documented By: REGINALD Non-Admin Reason: Patient Refused Ondansetron HCl (Ondansetron Hcl 4 Mg/2 Ml Vial) 4 mg IVPUSH Q8H PRN PRN Reason: Nausea and Vomiting Quetiapine Fumarate (Quetiapine Fumarate 25 Mg Tablet) 25 mg PO Q8H PRN PRN Reason: anxiety/restlessness Last Admin: 08/31/22 20:33 Dose: 25 mg Documented By: MILTON Sodium Chloride (0.9 % Sodium Chloride Flush 3 Ml Syringe) 3 [facility] Last Admin: 09/03/22 08:02 Dose: 3 ml Documented By: REGINALD Labs 08/04/22 05:55 09/01/22 06:35 Labs: Laboratory Results - last 24 hr 09/02/22 09/02/22 09/02/22 11:21 16:47 20:48 POC Glucose 173 H 137 H 188 H 09/03/22 07:12 POC Glucose 236 H Assessment and Plan (1) Neurodegenerative cognitive impairment: Status: Acute Plan 77-year-old female with hypothyroidism, ebl-bfwocue-bkagludyt type 2 diabetes, hypertension, hyperlipidemia, paroxysmal atrial fibrillation anticoagulated with Eliquis, history of invasive ductal carcinoma of the breast, and history of uterine cancer presentd with mechanical fall, afib with rvr lack Capacity 2/2 cognitive impairment evaluated by psych on admission, has no capacity to sign AMA or take medical decisions at this point, HCP invoked pending safe discharge plan seen by psych again 08/30/22 to eval capacity to change HCP, does not appear to have capacity for that decision as well. paroxysmal afib with rvr, resolved Continue eliquis, metoprolol to 75 bid with better rate control severe on echo acute on chronic diastolic chf po lasix hypotension, resolved enapril on hold DM with hyperglycemia and hypoglycemia insulin, glargine disconitnued hypothryoid synthroid hld statin history of breast and uterine cancer outpatient oncology follow up dvt prophylaxis Eliquis full code reason for continued hospitalization: safe dispo Time Spent With Patient Time: Total time managing care of this patient today ____ minutes. Quality Stroke Does the patient have a stroke diagnosis?: No VTE Prior VTE?: No VTE Risk Level:: Medical - moderate - high VTE Device Contraindication: Treatment Not Indicated VTE Drug Contraindication: N/A - Med Ordered
[2022-09-03 11:14] VITALS: BP 129/70; PULSE 74; RESP 20; TEMP 36; O2SAT 98
[2022-09-03 11:26] LABS: Glucose, Whole Blood 290 mg/dL (60-115)
--- NOTE | 2022-09-03 12:25 | PC.NURSE ---
Pt. today is very resistant to care. When asked if we could help wash her up she refused only letting us do the bare minimum. Pt. states that she had gone to the bathroom in her recliner and was refusing to let us clean her up until it was convenient for her.
[2022-09-03 15:42] VITALS: BP 145/68; PULSE 62; RESP 21; TEMP 36.6; O2SAT 95
[2022-09-03 16:08] LABS: Glucose, Whole Blood 180 mg/dL (60-115)
[2022-09-03] MEDS: polyethylene glycoL 3350 17 GM POWD.PACK PO (18:01)
[2022-09-03 19:32] VITALS: BP 148/68; PULSE 72; RESP 22; TEMP 36.3; O2SAT 94
[2022-09-03 20:18] LABS: Glucose, Whole Blood 247 mg/dL (60-115)
[2022-09-03] MEDS: Atorvastatin Calcium 20 MG TABLET PO (22:00)
[2022-09-03 23:45] VITALS: BP 150/67; PULSE 90; RESP 32; TEMP 36.4; O2SAT 96
[2022-09-04] VITALS (8 sets, daily range): BP systolic 111–164; BP diastolic 58–75; PULSE 70–113; RESP 19–21; TEMP 35.9–36.4; O2SAT 93–96
[2022-09-04] MEDS: Furosemide 40 MG/4 ML VIAL IVPUSH (00:32)
[2022-09-04] MEDS: Albuterol/Iprat 2.5/0.5MG 3 ML AMPUL.NEB INHALE (00:32)
--- NOTE | 2022-09-04 01:49 | PC.NURSE ---
Pt c/o SOB at midnight, accompanied by audible inspiratory and expiratory wheezes. Dim bases. 3+leg ankle and pedal edema. rr 32-36, 92% room air. MD notified, and lasix and nebulizer administered with good effect. wheezing no longer audible and rr WNL.
[2022-09-04] MEDS: Levothyroxine Sodium 112 MCG TABLET PO (06:33)
[2022-09-04 07:34] LABS: Glucose, Whole Blood 254 mg/dL (60-115)
[2022-09-04] MEDS: Insulin Lispro 100 UNIT/ML 3 ML VIAL SUBCUT ×4 (07:56→21:21)
[2022-09-04] MEDS: Metoprolol Tartrate 25 MG TABLET 75 MG PO ×2 (07:56→21:20)
[2022-09-04] MEDS: 0.9 % Sodium Chloride Flush 3 ML SYRINGE IVFLUSH ×3 (07:56→21:21)
[2022-09-04] MEDS: glipiZIDE 5 MG TABLET PO (07:57)
[2022-09-04] MEDS: Apixaban 5 MG TABLET PO ×2 (07:57→21:20)
[2022-09-04] MEDS: Aspirin Enteric Coated 81 MG TABLET.DR PO (07:57)
[2022-09-04] MEDS: Furosemide 40 MG TABLET PO (07:57)
[2022-09-04 11:21] LABS: Glucose, Whole Blood 311 mg/dL (60-115)
--- NOTE | 2022-09-04 11:58 | HO.PM.IMPN ---
Subjective Subjective Date of Service: 09/04/22 Interval History: Seen this morning Sitting in chair, comfortable Cooperative and interactive No other overnight events Physical Exam Vital Signs: Vital Signs: Last Vital Signs Temp 97.4 F 09/04/22 11:15 Pulse 73 09/04/22 11:15 Resp 20 09/04/22 11:15 BP 139/65 09/04/22 11:15 Pulse Ox 96 09/04/22 11:15 O2 Del Method Room Air 09/04/22 11:15 O2 Flow Rate 2 07/27/22 22:00 FiO2 35 08/31/22 03:18 BMI result Body Mass Index 29.6 Const: Other: Constitutional : Awake, interactive Neck : Normal inspection, Supple Cardiovascular : irregular irregular, no lower extremity edema Respiratory : not in distress, chest wall moving bilaterally Skin : Warm, Dry Neurological : Alert & oriented to self and place sometimes, can get easily confused, No focal deficit Objective Data Active Medications Acetaminophen (Acetaminophen 325 Mg Tablet) 650 mg PO Q6H PRN PRN Reason: Pain, Mild (Pain Scale 1-3) Last Admin: 09/02/22 15:05 Dose: 650 mg Documented By: ERGINALD Albuterol/Ipratropium (Albuterol/Iprat 2.5/0.5mg 3 Ml Ampul.Neb) 3 ml INHALE Q4H PRN PRN Reason: Wheezing Last Admin: 09/04/22 00:32 Dose: 3 ml Documented By: LINDA Apixaban (Apixaban 5 Mg Tablet) 5 mg PO BID [facility] BEDS AT [facility] Last Admin: 09/04/22 07:57 Dose: 5 mg Documented By: GENIE Aspirin (Aspirin Enteric Coated 81 Mg Tablet.Dr) 81 mg PO DAILY [facility]S [facility]CLUDE 234 BEDS AT [facility] Last Admin: 09/04/22 07:57 Dose: 81 mg Documented By: GENIE Atorvastatin Calcium (Atorvastatin Calcium 20 Mg Tablet) 20 mg PO BEDTIME [facility]S [facility] 234 BEDS AT [facility] Last Admin: 09/03/22 22:00 Dose: 20 mg Documented By: MALENA Docusate Sodium (Docusate Sodium 100 Mg Capsule) 100 mg PO DAILY PRN PRN Reason: Constipation Last Admin: 09/03/22 08:24 Dose: 100 mg Documented By: REGINALD Enalapril Maleate (Enalapril Maleate 10 Mg Tablet) 10 mg PO DAILY [facility] 234 BEDS AT [facility]; Protocol Furosemide (Furosemide 40 Mg Tablet) 40 mg PO DAILY [facility] 234 BEDS AT [facility]; Protocol Last Admin: 09/04/22 07:57 Dose: 40 mg Documented By: GENIE Glipizide (Glipizide 5 Mg Tablet) 5 mg PO DAILY [facility] 234 BEDS AT [facility] Last Admin: 09/04/22 07:57 Dose: 5 mg Documented By: GENIE Glucose (Glucose Gel 15 Gm Gel..Gram.) 15 gm PO Q15M PRN; Protocol PRN Reason: per Hypoglycemia Standing Ord. Last Admin: 09/01/22 08:59 Dose: 15 gm Documented By: SOLISTUAN Dextrose (D10) 250 mls @ 750 mls/hr IV Q15M PRN; Protocol PRN Reason: per Hypoglycemia Standing Ord. Insulin Human Lispro (Insulin Lispro 100 Unit/Ml 3 Ml Vial) 0 unit SUBCUT QIDACHS [facility] 234 BEDS AT [facility]; Protocol Last Admin: 09/04/22 11:36 Dose: 8 unit Documented By: GENIE Levothyroxine Sodium (Levothyroxine Sodium 112 Mcg Tablet) 112 mcg PO DAILY@0600 [facility] 234 BEDS AT [facility] Last Admin: 09/04/22 06:33 Dose: 112 mcg Documented By: JACKY Metformin HCl (Metformin Hcl 850 Mg Tablet) 850 mg PO BIDWM COUNTS [facility]CLUDE 234 BEDS AT [facility] Last Admin: 09/04/22 08:03 Dose: Not Given Documented By: GENIE Non-Admin Reason: Patient Refused Metoprolol Tartrate (Metoprolol Tartrate 25 Mg Tablet) 75 mg PO BID [facility] 234 BEDS AT [facility]; Protocol Last Admin: 09/04/22 07:56 Dose: 75 mg Documented By: GENIE Multivitamins/Vitamin C (Multivitamin Tablet) 1 tab PO DAILY [facility]CLUDE 234 BEDS AT [facility] Last Admin: 09/04/22 08:02 Dose: Not Given Documented By: GENIE Non-Admin Reason: Patient Refused Nystatin (Nystatin Powder 15 Gm Bottle) 1 appl TOPICAL BID [facility]CLUDE 234 BEDS AT [facility]; Protocol Last Admin: 09/04/22 08:03 Dose: Not Given Documented By: GENIE Non-Admin Reason: Patient Refused Ondansetron HCl (Ondansetron Hcl 4 Mg/2 Ml Vial) 4 mg IVPUSH Q8H PRN PRN Reason: Nausea and Vomiting Quetiapine Fumarate (Quetiapine Fumarate 25 Mg Tablet) 25 mg PO Q8H PRN PRN Reason: anxiety/restlessness Last Admin: 08/31/22 20:33 Dose: 25 mg Documented By: MILTON Sodium Chloride (0.9 % Sodium Chloride Flush 3 Ml Syringe) 3 ml IVFLUSH QSHIFT COUNTS [facility]CLUDE 234 BEDS AT [facility] Last Admin: 09/04/22 07:56 Dose: 3 ml Documented By: TAMMIEARTB Labs 08/04/22 05:55 09/01/22 06:35 Labs: Laboratory Results - last 24 hr 09/03/22 09/03/22 09/04/22 16:00 20:14 07:24 POC Glucose 180 H 247 H 254 H 09/04/22 11:17 POC Glucose 311 H Assessment and Plan (1) Neurodegenerative cognitive impairment: Status: Acute Plan 77-year-old female with hypothyroidism, rwq-cfgikaw-bzhakhcch type 2 diabetes, hypertension, hyperlipidemia, paroxysmal atrial fibrillation anticoagulated with Eliquis, history of invasive ductal carcinoma of the breast, and history of uterine cancer presentd with mechanical fall, afib with rvr lack Capacity 2/2 cognitive impairment evaluated by psych on admission, has no capacity to sign AMA or take medical decisions at this point, HCP invoked pending safe discharge plan seen by psych again 08/30/22 to eval capacity to change HCP, does not appear to have capacity for that decision as well. paroxysmal afib with rvr, resolved Continue eliquis, metoprolol to 75 bid with better rate control severe on echo acute on chronic diastolic chf po lasix hypotension, resolved enapril on hold DM with hyperglycemia and hypoglycemia insulin, glargine disconitnued hypothryoid synthroid hld statin history of breast and uterine cancer outpatient oncology follow up dvt prophylaxis Eliquis full code reason for continued hospitalization: safe dispo Time Spent With Patient Time: Total time managing care of this patient today ____ minutes. Quality Stroke Does the patient have a stroke diagnosis?: No VTE Prior VTE?: No VTE Risk Level:: Medical - moderate - high VTE Device Contraindication: Treatment Not Indicated VTE Drug Contraindication: N/A - Med Ordered
--- NOTE | 2022-09-04 12:26 | MHC.CM.PN ---
Addendum entered by Shannon Fang 09/05/22 12:37: Pt code status changed from DNR/DNI after MD had a discussion with pts daughter/HCP Dori. Pts daughter Dori stated that she does not want her mother to suffer and wants her to remain comfortable. Addendum entered by Shannon Fang 09/05/22 11:18: Phone call received from pts daughter/HCP Dori, she had concerns about her mothers conditions and requested an update, brief clinical update provided by this CM. Dori concerned and stated she has not been herself in a long time. , and asked if her mom would be appropriate for hospice. This CM stated that she should speak with an MD about that and this CM notified MD and requested they provide an update to Dori. Dori also stated that she has not gone for conservatorship at this time but is meaning to do so soon. Original Note: EMR reviewed and per MD rounds, we continue to await updates from FS of MH tiera, and pt continues to be a LTC bed search, [facility]. CM will continue to follow.
[2022-09-04 16:04] LABS: Glucose, Whole Blood 207 mg/dL (60-115)
[2022-09-04 20:02] LABS: Glucose, Whole Blood 210 mg/dL (60-115)
[2022-09-04] MEDS: Atorvastatin Calcium 20 MG TABLET PO (21:20)
[2022-09-05] VITALS (12 sets, daily range): BP systolic 70–155; BP diastolic 42–72; PULSE 66–104; RESP 16–24; TEMP 35.9–36.4; O2SAT 84–100
--- NOTE | 2022-09-05 | ECG_ITS ---
Test Reason : low bp Blood Pressure : / mmHG Vent. Rate : 093 BPM Atrial Rate : 000 BPM P-R Int : 000 ms QRS Dur : 070 ms QT Int : 366 ms P-R-T Axes : 000 -09 166 degrees QTc Int : 455 ms Atrial fibrillation with a competing junctional pacemaker Septal infarct (cited on or before 20-JUL-2022) Abnormal ECG When compared with ECG of 27-JUL-2022 19:54, Previous ECG has undetermined rhythm, needs review T wave inversion now evident in Anterior leads Referred By: Tamera Beavers Electronically Signed By:ZABRINA BANGURA MD
[2022-09-05] MEDS: Haloperidol Lactate 5 MG/ML VIAL 2.5 MG IM (03:30)
[2022-09-05 03:40] LABS: MANUAL DIFF FLAG NO
[2022-09-05 03:42] LABS: Basophils Percent Auto 0.3 % (0-2); Eosinophils Percent Auto 0.2 % (0-4); Hemoglobin 13.9 g/dl (12.0-16.0); Imm Gran Abs Auto 0.08 X10*3/uL (0.00-0.03); Imm Gran Pct Auto 0.5 % (0.0-0.4); Lymphocytes Absolute Auto 0.8 X10*3/uL (1.2-4.9); Lymphocytes Percent Auto 5.1 % (20-40); Mean Corpuscular HGB Conc 33.1 g/dl (31.0-35.0); Mean Corpuscular Hemoglobin 28.4 pg (27.0-33.0); Mean Corpuscular Volume 85.7 fL (80.0-98.0); Monocytes Absolute Auto 1.4 X10*3/uL (0.1-1.2); Monocytes Percent Auto 9.1 % (2-11); Neutrophils Absolute Auto 12.7 x10*3/uL (2.0-8.3); Neutrophils Percent Auto 84.8 % (45-73); Platelet Count 263 X10*3/uL (160-400); Red Cell Distribution Width 14.5 % (11.0-16.0)
[2022-09-05 03:55] LABS: Anion Gap 14 (12-20); Blood Urea Nitrogen 26 mg/dL (9-16); Calcium 8.6 mg/dL (8.4-10.2); Carbon Dioxide 33 mmol/L (22-29); Chloride 92 mmol/L (96-108); Creatinine Clr Calc Pharmacy 50.2; Estimated Glomerular Filt Rate > 60; Glucose Random 296 mg/dL (60-115); Potassium 4.1 mmol/L (3.3-5.1); Sodium 135 mmol/L (135-145)
[2022-09-05 04:03] LABS: B Type Natriuretic Peptide 245 pg/mL (<100); Troponin-I High Sensitivity 11.9 ng/L (<3.5-17.0)
[2022-09-05 07:26] LABS: Glucose, Whole Blood 262 mg/dL (60-115)
[2022-09-05] MEDS: 0.9 % Sodium Chloride 1,000 ML 999 ML IV ×2 (08:22→11:29)
[2022-09-05] MEDS: Insulin Lispro 100 UNIT/ML 3 ML VIAL SUBCUT (08:43)
[2022-09-05] MEDS: Albumin Human 25 % 100 ML IV ×2 (09:47→12:15)
--- NOTE | 2022-09-05 11:39 | P.PNIM_ITS ---
Subjective Subjective Date of Service: 09/05/22 Interval History: Seen and evaluated this morning Lethargic, looks sick Hypoxic overnight, CXR showing CHF and pneumonia BP running too low of 70s/50s no other events Review of Systems Review of Systems: Yes Unobtainable due to mental condition Physical Exam Vital Signs: Vital Signs: Last Vital Signs Temp 97.5 F 09/05/22 07:40 Pulse 80 09/05/22 11:35 Resp 20 09/05/22 07:40 BP 70/54 L 09/05/22 11:16 Pulse Ox 88 L 09/05/22 11:35 O2 Del Method Room Air 09/05/22 11:35 O2 Flow Rate 5 09/05/22 07:40 FiO2 35 08/31/22 03:18 BMI result Body Mass Index 29.6 Const: Other: Constitutional : lethargic, sleepy Neck : Normal inspection, Supple Cardiovascular : irregular irregular, +2 lower extremity edema Respiratory : not in distress, chest wall moving bilaterally, decrease air movements in bases, crackles Skin : Warm, Dry Neurological : Alert with stimulation & oriented to self only Objective Data Active Medications Acetaminophen (Acetaminophen 325 Mg Tablet) 650 mg PO Q6H PRN PRN Reason: Pain, Mild (Pain Scale 1-3) Last Admin: 09/02/22 15:05 Dose: 650 mg Documented By: REGINALD Albuterol/Ipratropium (Albuterol/Iprat 2.5/0.5mg 3 Ml Ampul.Neb) 3 ml INHALE Q4H PRN PRN Reason: Wheezing Last Admin: 09/04/22 00:32 Dose: 3 ml Documented By: LINDA Apixaban (Apixaban 5 Mg Tablet) 5 mg PO BID [facility] Last Admin: 09/04/22 21:20 Dose: 5 mg Documented By: HANNAH Aspirin (Aspirin Enteric Coated 81 Mg Tablet.Dr) 81 mg PO DAILY [facility] Last Admin: 09/04/22 07:57 Dose: 81 mg Documented By: GENEI Atorvastatin Calcium (Atorvastatin Calcium 20 Mg Tablet) 20 mg PO BEDTIME [facility] Last Admin: 09/04/22 21:20 Dose: 20 mg Documented By: HANNAH Docusate Sodium (Docusate Sodium 100 Mg Capsule) 100 mg PO DAILY PRN PRN Reason: Constipation Last Admin: 09/03/22 08:24 Dose: 100 mg Documented By: REGINALD Enalapril Maleate (Enalapril Maleate 10 Mg Tablet) 10 mg PO DAILY [facility]; Protocol Furosemide (Furosemide 40 Mg Tablet) 40 mg PO DAILY [facility]; Protocol Last Admin: 09/04/22 07:57 Dose: 40 mg Documented By: GENIE Glipizide (Glipizide 5 Mg Tablet) 5 mg PO DAILY [facility] Last Admin: 09/04/22 07:57 Dose: 5 mg Documented By: GENIE Glucose (Glucose Gel 15 Gm Gel..Gram.) 15 gm PO Q15M PRN; Protocol PRN Reason: per Hypoglycemia Standing Ord. Last Admin: 09/01/22 08:59 Dose: 15 gm Documented By: IND[place] Dextrose (D10) 250 mls @ 750 mls/hr IV Q15M PRN; Protocol PRN Reason: per Hypoglycemia Standing Ord. Sodium Chloride (Ns) 1,000 mls @ 999 mls/hr IV .Q1H1M [facility] Stop: 09/05/22 12:15 Last Admin: 09/05/22 11:29 Dose: 999 mls/hr Documented By: IND[place] Albumin Human (Kedbumin 25 %) 100 mls @ 100 mls/hr IV ONCE ONE Stop: 09/05/22 12:10 Piperacillin Sod/Tazobactam (Sod 4.5 gm/ Sodium Chloride) 100 mls @ 200 mls/hr IV Q6H [facility] Sodium Chloride (Ns) 2,067 mls @ 2,067 mls/hr 30 ml/kg infuse over 1 hr (2067 ml) IV .Q1H STA Stop: 09/05/22 12:34 Vancomycin HCl 1,000 mg/Vancomycin HCl 750 mg/ Sodium Chloride 535 mls @ 267.5 mls/hr IV ONCE ONE Stop: 09/05/22 14:59 Insulin Human Lispro (Insulin Lispro 100 Unit/Ml 3 Ml Vial) 0 unit SUBCUT QIDACHS [facility]; Protocol Last Admin: 09/05/22 08:43 Dose: 6 unit Documented By: [place] Levothyroxine Sodium (Levothyroxine Sodium 112 Mcg Tablet) 112 mcg PO DAILY@0600 [facility] Last Admin: 09/05/22 06:18 Dose: Not Given Documented By: HANNAH Non-Admin Reason: pt too lethargic Metformin HCl (Metformin Hcl 850 Mg Tablet) 850 mg PO BIDWM [facility] Last Admin: 09/05/22 08:22 Dose: Not Given Documented By: [place] Non-Admin Reason: Patient Refused Metoprolol Tartrate (Metoprolol Tartrate 25 Mg Tablet) 75 mg PO BID [facility]; Protocol Last Admin: 09/05/22 09:24 Dose: Not Given Documented By: [place] Non-Admin Reason: low bp Multivitamins/Vitamin C (Multivitamin Tablet) 1 tab PO DAILY [facility] Last Admin: 09/05/22 08:23 Dose: Not Given Documented By: [place] Non-Admin Reason: Patient Refused Nystatin (Nystatin Powder 15 Gm Bottle) 1 appl TOPICAL BID [facility]; Protocol Last Admin: 09/04/22 21:21 Dose: Not Given Documented By: HANNAH Non-Admin Reason: Patient Refused Ondansetron HCl (Ondansetron Hcl 4 Mg/2 Ml Vial) 4 mg IVPUSH Q8H PRN PRN Reason: Nausea and Vomiting Pharmacy Consult (Consult Rx Vancomycin Dosing) 1 each MISCELLANE DAILY PRN PRN Reason: Consult order Quetiapine Fumarate (Quetiapine Fumarate 25 Mg Tablet) 25 mg PO Q8H PRN PRN Reason: anxiety/restlessness Last Admin: 08/31/22 20:33 Dose: 25 mg Documented By: MILTON Sodium Chloride (0.9 % Sodium Chloride Flush 3 Ml Syringe) 3 ml IVFLUSH QSHIFT [facility] Last Admin: 09/05/22 08:39 Dose: Not Given Documented By: [place] Non-Admin Reason: Previously Administered Labs 09/05/22 03:36 09/05/22 03:36 Labs: Laboratory Results - last 24 hr 09/04/22 09/04/22 09/05/22 15:56 19:55 03:36 MCV 85.7 MCH 28.4 MCHC 33.1 RDW 14.5 Plt Count 263 MPV 9.0 L Immature Gran % (Auto) 0.5 H Neut % (Auto) 84.8 H Lymph % (Auto) 5.1 L [place] % (Auto) 9.1 Eos % (Auto) 0.2 Baso % (Auto) 0.3 Lymph # (Auto) 0.8 L [place] # (Auto) 1.4 H Eos # (Auto) 0.0 Baso # (Auto) 0.0 Abs Immat Gran (auto) 0.08 H Absolute Neuts (auto) 12.7 H Absolute Nucleated RBC 0.000 Nucleated RBC % (auto) 0.0 Anion Gap Estim Creat Clear Calc Estimated GFR POC Glucose 207 H 210 H Random Glucose Lactic Acid Calcium Troponin I High Sens B-Natriuretic Peptide 09/05/22 09/05/22 09/05/22 03:36 03:36 03:36 MCV MCH MCHC RDW Plt Count MPV Immature Gran % (Auto) Neut % (Auto) Lymph % (Auto) [place] % (Auto) Eos % (Auto) Baso % (Auto) Lymph # (Auto) [place] # (Auto) Eos # (Auto) Baso # (Auto) Abs Immat Gran (auto) Absolute Neuts (auto) Absolute Nucleated RBC Nucleated RBC % (auto) Anion Gap 14 Estim Creat Clear Calc 50.2 Estimated GFR > 60 POC Glucose Random Glucose 296 H Lactic Acid 2.0 Calcium 8.6 Troponin I High Sens 11.9 B-Natriuretic Peptide 09/05/22 09/05/22 03:36 07:19 MCV MCH MCHC RDW Plt Count MPV Immature Gran % (Auto) Neut % (Auto) Lymph % (Auto) [place] % (Auto) Eos % (Auto) Baso % (Auto) Lymph # (Auto) [place] # (Auto) Eos # (Auto) Baso # (Auto) Abs Immat Gran (auto) Absolute Neuts (auto) Absolute Nucleated RBC Nucleated RBC % (auto) Anion Gap Estim Creat Clear Calc Estimated GFR POC Glucose 262 H Random Glucose Lactic Acid Calcium Troponin I High Sens B-Natriuretic Peptide 245 H Assessment and Plan (1) Acute respiratory failure with hypoxia: Status: Acute (2) Aspiration pneumonia: Status: Acute (3) Hypotension: Status: Acute Plan 77-year-old female with hypothyroidism, ufo-gesjsyu-[id number] type 2 diabetes, hypertension, hyperlipidemia, paroxysmal atrial fibrillation anticoagulated with Eliquis, history of invasive ductal carcinoma of the breast, and history of uterine cancer presentd with mechanical fall, afib with rvr Acute hypoxic respiratory failure 2/2 CHF exacerbation and aspiration pneumonia start IV lasix monitor I\O SIRS 2/2 Aspiration pneumonitis\pneumonia Hypoxia, Leukocytosis and CXR showing infiltrates send cultures, LA 30 ml\kg NS for low BP readings IV steroids and Abx DISULFURIZER TENDER eval Hypotension enapril on hold likely 2/2 dehydration, possible infection improved with Albumin, IVF boluses monitor for need of pressors lack Capacity 2/2 cognitive impairment evaluated by psych on admission, has no capacity to sign AMA or take medical decisions at this point, HCP invoked pending safe discharge plan seen by psych again 08/30/22 to eval capacity to change HCP, does not appear to have capacity for that decision as well. paroxysmal afib with rvr, resolved Continue eliquis, metoprolol to 75 bid with better rate control severe on echo DM with hyperglycemia and hypoglycemia insulin, glargine disconitnued hypothryoid synthroid hld statin history of breast and uterine cancer outpatient oncology follow up dvt prophylaxis Eliquis Code status discussed with HCP, daughter Dori who does not want her mother to suffer and wants her to be comfortable. explained the change in status and possible need for ICU admission, intubation. HCP does not want her mother to have CPR or intubation. she is ok with trials of pressors if needed but would change her status to comfort measures if she fails to improve. dr Fabiola hough the phonecall. MOLST form will be filled and signed. code status c hanged to DNR\DNI reason for continued hospitalization: safe dispo Time Spent With Patient Time: Total time managing care of this patient today ____ minutes. Quality Stroke Does the patient have a stroke diagnosis?: No VTE Prior VTE?: No VTE Risk Level:: Medical - moderate - high VTE Device Contraindication: Treatment Not Indicated VTE Drug Contraindication: N/A - Med Ordered
[2022-09-05 12:12] LABS: Glucose, Whole Blood 176 mg/dL (60-115)
[2022-09-05 12:45] LABS: Lactic Acid 1.9 mmol/L (0.5-2.0)
--- NOTE | 2022-09-05 12:52 | MHC.SLORD ---
Speech Language Pathology Order Status: Attempted to see patient for clinical swallow this p.m. Per MACHINE TAILER, Patient not appropriate at this time for assessment. Patient had just been moved to bed from chair, had very low BP, LE Edema, was not awake or alert, appeared to have SOB on oxymask. Per MACHINE TAILER patient being reviewed by ICU MD for possible transfer. Will re-attempt when appropriate.
[2022-09-05 12:58] LABS: Troponin-I High Sensitivity 15.1 ng/L (<3.5-17.0)
[2022-09-05] MEDS: methylPREDNISolone Sod Succ 40 MG/ML VIAL IVPUSH (13:37)
[2022-09-05] MEDS: Piperacillin Sodium/Tazobactam 4.5 GM in 0.9 % Sodium Chloride 100 ML IV ×3 (13:37→23:46)
[2022-09-05] MEDS: Furosemide 40 MG/4 ML VIAL IVPUSH ×2 (13:37→18:28)
[2022-09-05] MEDS: vancomycin HCL 1,000 MG, vancomycin HCL 750 MG in 0.9 % Sodium Chloride 500 ML 267.5 MG IV (14:14)
--- NOTE | 2022-09-05 15:06 | PHA.PROG ---
Admission Date/Time: July 28, 2022 12:49 Indication: respiratory infection Weight in k.9 kg Adjusted body weight in K.9 [place] body weight in K.5 Obesity Dosing Indication % IBW:obese Serum Creatinine - Last 168 Hours 09/01/22 09/05/22 06:35 03:36 Creatinine 0.84 0.80 Estimated CrCl and GFR - Last 168 Hours 09/01/22 09/05/22 06:35 03:36 Estim Creat Clear Calc 47.8 50.2 Estimated GFR > 60 > 60 Vancomycin Loading Dose: 1750 mg x1 Current Vancomycin Dosing Regimen:1250 mg Q24H Vancomycin Monitoring using AUC goal of 400 - 600 range with trough as surrogate marker: 463 mg/L/hr Date and Time for next Vancomycin Level to be drawn: 09/07 @1200 Pharmacist Comments on Vancomycin Plan: Vancomycin dosing will take advantage of [employer] as a clinical decision support tool that uses Bayesian modeling to calculate individual patient's pharmacokinetic parameters and forecast the patient's drug concentration time course with the target goal AUC 24 range of 400 - 600 mg/L/hr.
[2022-09-05 15:39] LABS: Glucose, Whole Blood 139 mg/dL (60-115)
[2022-09-05 20:01] LABS: Glucose, Whole Blood 72 mg/dL (60-115)
[2022-09-05 20:24] LABS: Glucose, Whole Blood 143 mg/dL (60-115)
[2022-09-05] MEDS: Apixaban 5 MG TABLET PO (22:20)
[2022-09-05] MEDS: Atorvastatin Calcium 20 MG TABLET PO (22:21)
[2022-09-05] MEDS: Metoprolol Tartrate 25 MG TABLET 75 MG PO (22:21)
[2022-09-05] MEDS: Nystatin Powder 15 GM BOTTLE 1 APPL TOPICAL (22:22)
[2022-09-05] MEDS: 0.9 % Sodium Chloride Flush 3 ML SYRINGE IVFLUSH (23:47)
[2022-09-06] VITALS (7 sets, daily range): BP systolic 136–180; BP diastolic 68–98; PULSE 70–136; RESP 15–40; TEMP 35.6–36.2; O2SAT 83–99
[2022-09-06] MEDS: Levothyroxine Sodium 112 MCG TABLET PO (05:05)
[2022-09-06] MEDS: Piperacillin Sodium/Tazobactam 4.5 GM in 0.9 % Sodium Chloride 100 ML IV ×2 (05:05→12:06)
--- NOTE | 2022-09-06 07:03 | PC.NURSE ---
on 09/05, job specification writer was told in report that pt was hypoxic overnight. Oxymask at 5L was applied although patient was resistant. At beginning of shift, pt was sleepy/lethargic. Pt baseline has been exp wheezing, though this seemed of greater intensity and job specification writer noted accessory muscle usage. Morning vital signs showed a low BP. MD notified and received orders for a NS bolus and 50mg albumin. BP continued to be low. ICU MD arrived for consult and at this point BP was WNL. IV lasix, solumedrol, and abx ordered and administered per JUN. Towards end of shift, pt became more alert, approaching basline. Will continue to monitor
--- NOTE | 2022-09-06 07:07 | HE.PHANOTE ---
BASED ON SCR OF 0.8 DOSE CONTINUED AT 750 Q12H. NEXT TROUGH AT 09/07 @ 1200
[2022-09-06 07:32] LABS: Hematocrit 43.6 % (37.0-47.0); Hemoglobin 14.1 g/dl (12.0-16.0); Mean Corpuscular HGB Conc 32.3 g/dl (31.0-35.0); Mean Corpuscular Volume 86.5 fL (80.0-98.0); Mean Platelet Volume 9.2 fL (9.4-12.3); Platelet Count 215 X10*3/uL (160-400); Red Blood Count 5.04 X10*6/uL (4.20-5.50); Red Cell Distribution Width 14.5 % (11.0-16.0)
[2022-09-06 07:36] LABS: Glucose, Whole Blood 193 mg/dL (60-115)
[2022-09-06 07:51] LABS: Anion Gap 16 (12-20); Blood Urea Nitrogen 23 mg/dL (9-16); Calcium 8.7 mg/dL (8.4-10.2); Carbon Dioxide 33 mmol/L (22-29); Chloride 95 mmol/L (96-108); Creatinine Clr Calc Pharmacy 51.4; Estimated Glomerular Filt Rate > 60; Glucose Random 227 mg/dL (60-115); Potassium 3.8 mmol/L (3.3-5.1); Sodium 140 mmol/L (135-145)
[2022-09-06 07:54] LABS: B Type Natriuretic Peptide 320 pg/mL (<100)
[2022-09-06] MEDS: metOLazone 2.5 MG TABLET PO (07:59)
[2022-09-06] MEDS: Metoprolol Tartrate 25 MG TABLET 75 MG PO ×2 (07:59→21:47)
[2022-09-06] MEDS: Furosemide 40 MG/4 ML VIAL IVPUSH (07:59)
[2022-09-06] MEDS: Insulin Lispro 100 UNIT/ML 3 ML VIAL SUBCUT ×4 (07:59→21:48)
[2022-09-06] MEDS: Aspirin Enteric Coated 81 MG TABLET.DR PO (08:00)
[2022-09-06] MEDS: 0.9 % Sodium Chloride Flush 3 ML SYRINGE IVFLUSH ×2 (08:00→14:08)
[2022-09-06] MEDS: Apixaban 5 MG TABLET PO ×2 (08:00→21:48)
[2022-09-06] MEDS: glipiZIDE 5 MG TABLET PO (08:00)
[2022-09-06 11:18] LABS: Glucose, Whole Blood 239 mg/dL (60-115)
[2022-09-06] MEDS: methylPREDNISolone Sod Succ 40 MG/ML VIAL IVPUSH (12:07)
--- NOTE | 2022-09-06 12:48 | HO.PM.IMPN ---
Subjective Subjective Date of Service: 09/06/22 Interval History: Seen and evaluated this morning More alert and interactive, back to baseline Blood pressure improved XR showed fluid overload asking about going home no other events Review of Systems Review of Systems: Yes all other systems are reviewed and are negative Physical Exam Vital Signs: Vital Signs: Last Vital Signs Temp 96.0 F L 09/06/22 11:30 Pulse 85 09/06/22 11:30 Resp 18 09/06/22 11:30 BP 136/68 09/06/22 11:30 Pulse Ox 98 09/06/22 11:30 O2 Del Method Nasal Cannula 09/06/22 11:30 O2 Flow Rate 8 09/06/22 11:30 FiO2 35 08/31/22 03:18 BMI result Body Mass Index 29.6 Const: Other: Constitutional : Awake, interactive Neck : Normal inspection, Supple Cardiovascular : irregular irregular, no lower extremity edema Respiratory : not in distress, chest wall moving bilaterally Skin : Warm, Dry Neurological : Alert & oriented to self and place sometimes, can get easily confused, No focal deficit Objective Data Active Medications Acetaminophen (Acetaminophen 325 Mg Tablet) 650 mg PO Q6H PRN PRN Reason: Pain, Mild (Pain Scale 1-3) Last Admin: 09/02/22 15:05 Dose: 650 mg Documented By: REGINALD Albuterol/Ipratropium (Albuterol/Iprat 2.5/0.5mg 3 Ml Ampul.Neb) 3 ml INHALE Q4H PRN PRN Reason: Wheezing Last Admin: 09/04/22 00:32 Dose: 3 ml Documented By: LINDA Apixaban (Apixaban 5 Mg Tablet) 5 mg PO BID [facility] Last Admin: 09/06/22 08:00 Dose: 5 mg Documented By: IND[place] Aspirin (Aspirin Enteric Coated 81 Mg Tablet.) 81 mg PO DAILY [facility] Last Admin: 09/06/22 08:00 Dose: 81 mg Documented By: [place] Atorvastatin Calcium (Atorvastatin Calcium 20 Mg Tablet) 20 mg PO BEDTIME [facility] Last Admin: 09/05/22 22:21 Dose: 20 mg Documented By: SANIA Docusate Sodium (Docusate Sodium 100 Mg Capsule) 100 mg PO DAILY PRN PRN Reason: Constipation Last Admin: 09/03/22 08:24 Dose: 100 mg Documented By: REGINALD Furosemide (Furosemide 40 Mg/4 Ml Vial) 40 mg IVPUSH BID@0900,1800 [facility]; Protocol Last Admin: 09/06/22 07:59 Dose: 40 mg Documented By: IND[place] Glipizide (Glipizide 5 Mg Tablet) 5 mg PO DAILY [facility] Last Admin: 09/06/22 08:00 Dose: 5 mg Documented By: [place] Glucose (Glucose Gel 15 Gm Gel..Gram.) 15 gm PO Q15M PRN; Protocol PRN Reason: per Hypoglycemia Standing Ord. Last Admin: 09/01/22 08:59 Dose: 15 gm Documented By: [place] Piperacillin Sod/Tazobactam (Sod 4.5 gm/ Sodium Chloride) 100 mls @ 200 mls/hr IV Q6H [facility] Last Admin: 09/06/22 12:06 Dose: 200 mls/hr Documented By: IND[place] Vancomycin HCl 1,250 mg/ (Sodium Chloride) 250 mls @ 166.667 mls/hr IV Q24H [facility] Insulin Human Lispro (Insulin Lispro 100 Unit/Ml 3 Ml Vial) 0 unit SUBCUT QIDACHS [facility]; Protocol Last Admin: 09/06/22 12:07 Dose: 4 unit Documented By: IND[place] Levothyroxine Sodium (Levothyroxine Sodium 112 Mcg Tablet) 112 mcg PO DAILY@0600 [facility] Last Admin: 09/06/22 05:05 Dose: 112 mcg Documented By: SHRUTHI Metformin HCl (Metformin Hcl 850 Mg Tablet) 850 mg PO BIDWM [facility] Last Admin: 09/06/22 07:34 Dose: Not Given Documented By: [place] Non-Admin Reason: Patient Refused Methylprednisolone Sodium Succinate (Methylprednisolone Sod Succ 40 Mg/Ml Vial) 40 mg IVPUSH Q24H [facility] Last Admin: 09/06/22 12:07 Dose: 40 mg Documented By: [place] Metoprolol Tartrate (Metoprolol Tartrate 25 Mg Tablet) 75 mg PO BID [facility]; Protocol Last Admin: 09/06/22 07:59 Dose: 75 mg Documented By: [place] Multivitamins/Vitamin C (Multivitamin Tablet) 1 tab PO DAILY [facility] Last Admin: 09/06/22 07:35 Dose: Not Given Documented By: [place] Non-Admin Reason: Patient Refused Nystatin (Nystatin Powder 15 Gm Bottle) 1 appl TOPICAL BID [facility]; Protocol Last Admin: 09/06/22 10:25 Dose: Not Given Documented By: [place] Non-Admin Reason: Patient Refused Ondansetron HCl (Ondansetron Hcl 4 Mg/2 Ml Vial) 4 mg IVPUSH Q8H PRN PRN Reason: Nausea and Vomiting Pharmacy Consult (Consult Rx Vancomycin Dosing) 1 each MISCELLANE DAILY PRN PRN Reason: Consult order Quetiapine Fumarate (Quetiapine Fumarate 25 Mg Tablet) 25 mg PO Q8H PRN PRN Reason: anxiety/restlessness Last Admin: 08/31/22 20:33 Dose: 25 mg Documented By: MILTON Sodium Chloride (0.9 % Sodium Chloride Flush 3 Ml Syringe) 3 ml IVFLUSH QSHIFT [facility] Last Admin: 09/06/22 08:00 Dose: 3 ml Documented By: [place] Labs 09/06/22 07:14 09/06/22 07:14 Labs: Laboratory Results - last 24 hr 09/05/22 09/05/22 09/05/22 12:09 15:18 19:27 MCV MCH MCHC RDW Plt Count MPV Absolute Nucleated RBC Nucleated RBC % (auto) Anion Gap Estim Creat Clear Calc Estimated GFR POC Glucose 139 H 72 Random Glucose Calcium Troponin I High Sens 15.1 B-Natriuretic Peptide 09/05/22 09/06/22 09/06/22 20:21 07:14 07:14 MCV 86.5 MCH 28.0 MCHC 32.3 RDW 14.5 Plt Count 215 MPV 9.2 L Absolute Nucleated RBC 0.000 Nucleated RBC % (auto) 0.0 Anion Gap 16 Estim Creat Clear Calc 51.4 Estimated GFR > 60 POC Glucose 143 H Random Glucose 227 H Calcium 8.7 Troponin I High Sens B-Natriuretic Peptide 09/06/22 09/06/22 09/06/22 07:14 07:28 11:10 MCV MCH MCHC RDW Plt Count MPV Absolute Nucleated RBC Nucleated RBC % (auto) Anion Gap Estim Creat Clear Calc Estimated GFR POC Glucose 193 H 239 H Random Glucose Calcium Troponin I High Sens B-Natriuretic Peptide 320 H Assessment and Plan (1) Aspiration pneumonia: Status: Acute (2) Acute respiratory failure with hypoxia: Status: Acute (3) CHF (congestive heart failure): Status: Acute Plan 77-year-old female with hypothyroidism, eon-isfxgcz-[id number] type 2 diabetes, hypertension, hyperlipidemia, paroxysmal atrial fibrillation anticoagulated with Eliquis, history of invasive ductal carcinoma of the breast, and history of uterine cancer presentd with mechanical fall, afib with rvr Acute hypoxic respiratory failure 2/2 acute diastolic CHF exacerbation and aspiration pneumonia\pneumonitis CXR showing bilateral effusions and possible infiltrates on IV lasix, a dose of Metolazone continue Steroids, Abx monitor I\O wean O2 down as tolerated SIRS 2/2 Aspiration pneumonitis\pneumonia Hypoxia, Leukocytosis and CXR showing infiltrates Pending cultures, negative LA IV steroids and empirical Abx pending final cultures CRYSTALIZER eval, modified diet Hypotension, resolved enapril on hold likely 2/2 dehydration, possible infection improved with Albumin, IVF boluses lack Capacity 2/2 cognitive impairment evaluated by psych on admission, has no capacity to sign AMA or take medical decisions at this point, HCP invoked pending safe discharge plan seen by psych again 08/30/22 to eval capacity to change HCP, does not appear to have capacity for that decision as well. paroxysmal afib with rvr, resolved Continue eliquis, metoprolol to 75 bid with better rate control severe on echo DM with hyperglycemia and hypoglycemia insulin, glargine disconitnued hypothryoid synthroid hld statin history of breast and uterine cancer outpatient oncology follow up dvt prophylaxis Eliquis Code status discussed with HCP, daughter Dori who does not want her mother to suffer and wants her to be comfortable. explained the change in status and possible need for ICU admission, intubation. HCP does not want her mother to have CPR or intubation. she is ok with trials of pressors if needed but would change her status to comfort measures if she fails to improve. dr Fabiola hough the phonecall. MOLST form will be filled and signed. code status changed to DNR\DNI reason for continued hospitalization: safe dispo Time Spent With Patient Time: Total time managing care of this patient today ____ minutes. Quality Stroke Does the patient have a stroke diagnosis?: No VTE Prior VTE?: No VTE Risk Level:: Medical - moderate - high VTE Device Contraindication: Treatment Not Indicated VTE Drug Contraindication: N/A - Med Ordered
[2022-09-06] MEDS: vancomycin HCL 1,250 MG in 0.9 % Sodium Chloride 250 ML 166.67 MG IV (13:57)
--- NOTE | 2022-09-06 14:22 | MHC.CM.PN ---
EMR reviewed and per MD rounds, pt not medically cleared for D/C due to a recent change in condition and subsequent start of IV antibiotics for pneumonia. Although there was some improvement in patients condition after medical interventions, we continue to await approval for the MH tiera. CM will continue to follow for D/C.
--- NOTE | 2022-09-06 14:29 | MHC.SL.SWA ---
Speech Pathologist Impression: Risk of aspiration, oropharyngeal dysphagia Risk of Aspiration Due to: Medically Fragile Dysphasia Diet Status:Upgrade solids from NDD1 to NDD2; maintain NTL Liquid Consistency and Strategies for Safe Swallow: Liquid Intake Recommendation: [place] Thick Liquid Intake Strategies: Small Sips No Straws Solid Food Consistency: Dietary Recommendations: Grnd/Mech Altered (NDD2) Additional Modifications to Solid Foods: Pt currently on pureed diet (NDD1) with nectar thick liquids per MD order. Pt seen for bedside swallow eval this morning. Recommend UPGRADE to GROUND/MECH ALTERED (NDD2) solids, continue with NECTAR THICK liquids, pills WHOLE or CRUSHED in PUREE per pt's tolerance. Pt requires total 1:1 supervision during meals, assist with tray set up (moisten food with sauce/gravy), provide cues as needed (small bites/sips, one bite/sip at a time, chew well). Aspiration precautions apply. Diet order updated by KEYPUNCHER. Notified , RN, RD of change via [employer] Message. Oral Medication Intake: Crushed with Puree Please contact the pharmacy regarding appropriate crushable or liquid drug formulations that are available whenever modified delivery is recommended. Compensatory Strategies and Precautions to be Taken for Safe Swallow: Sitting Upright (90 deg) No Straw Small Bites and Sips Rate of Ingestion Change Oral Check Avoid Specific Foods Supervision While Eating and Drinking for Safe Swallow: Total Supervision (1:1) Foods to Avoid: Mixed consistencies, hard tough to chew solids Swallowing Recommended Treatments: Compens. Strategy Educat. Recommendation for Speech: Inpatient Speech Therapy Photographic Supervisor Clinican/Clinical Fellow: No Supervisory Statement: I have reviewed and agree with the student/clinical fellow's documentation: N/A Speech Language Pathologist: Lydia Ashraf M.A., CCC-KEYPUNCHER
[2022-09-06 15:57] LABS: Glucose, Whole Blood 286 mg/dL (60-115)
--- NOTE | 2022-09-06 16:02 | MHC.CM.PN ---
This CM received a phone call from pts daughter Dori with concerns that she was visiting her mother today and she was holding 100's of dollars. Dori was asking this CM where all of the money came from. Dori is concerned that the pts sister Radha may be coercing her with money. Dori states she wants to protect her mothers assets and money and would like to hire an computer operations technician to investigate.
[2022-09-06] MEDS: Albuterol/Iprat 2.5/0.5MG 3 ML AMPUL.NEB INHALE (19:26)
[2022-09-06 20:14] LABS: Glucose, Whole Blood 279 mg/dL (60-115)
[2022-09-06] MEDS: Atorvastatin Calcium 20 MG TABLET PO (21:48)
[2022-09-06] MEDS: Nystatin Powder 15 GM BOTTLE 1 APPL TOPICAL (21:49)
[2022-09-07] VITALS (11 sets, daily range): BP systolic 116–159; BP diastolic 65–78; PULSE 70–114; RESP 16–38; TEMP 36.1–37.3; O2SAT 92–99
[2022-09-07] MEDS: Morphine Sulfate 4 MG/ML CARTRIDGE IVPUSH (00:53)
[2022-09-07] MEDS: Furosemide 100 MG/10 ML VIAL 60 MG IVPUSH (00:53)
[2022-09-07] MEDS: 0.9 % Sodium Chloride Flush 3 ML SYRINGE IVFLUSH ×3 (00:55→23:17)
[2022-09-07] MEDS: Piperacillin Sodium/Tazobactam 4.5 GM in 0.9 % Sodium Chloride 100 ML IV ×5 (01:04→23:37)
[2022-09-07] MEDS: Albuterol/Iprat 2.5/0.5MG 3 ML AMPUL.NEB INHALE (01:04)
[2022-09-07 07:11] LABS: Creatinine Clr Calc Pharmacy 44.1; Estimated Glomerular Filt Rate 60
[2022-09-07 07:26] LABS: Glucose, Whole Blood 238 mg/dL (60-115)
--- NOTE | 2022-09-07 07:32 | PC.NURSE ---
At 00:00 pts bp was 176/80 with respiratory rate 36, with inspiratory wheeze, expiratory wheeze,crackes and O2 was 99%. respiratory therapy was called to assess patient and duoneb treatment was given 19:26 with some effectiveness according to patient. MD notified. MD ordered morphine 4mg IVpush once, Lasix 60mg IVpush once and another PRN duoneb treatment.will continue to monitor
[2022-09-07] MEDS: Furosemide 40 MG/4 ML VIAL 60 MG IVPUSH ×2 (09:10→17:50)
[2022-09-07] MEDS: glipiZIDE 5 MG TABLET PO (09:11)
[2022-09-07] MEDS: Insulin Lispro 100 UNIT/ML 3 ML VIAL SUBCUT ×4 (09:11→23:15)
[2022-09-07] MEDS: Apixaban 5 MG TABLET PO ×2 (09:11→23:15)
[2022-09-07] MEDS: Aspirin Enteric Coated 81 MG TABLET.DR PO (09:11)
[2022-09-07] MEDS: Metoprolol Tartrate 25 MG TABLET 75 MG PO ×2 (09:13→23:14)
[2022-09-07] MEDS: metOLazone 5 MG TABLET PO (09:52)
--- NOTE | 2022-09-07 10:52 | P.PNIM_ITS ---
Subjective Subjective Date of Service: 09/07/22 Interval History: Seen and evaluated this morning alert but overall weak complaining of dyspnea XR showed fluid overload and infiltrates no other events Review of Systems Review of Systems: Yes all other systems are reviewed and are negative Physical Exam Vital Signs: Vital Signs: Last Vital Signs Temp 99.2 F 09/07/22 07:16 Pulse 114 H 09/07/22 07:16 Resp 16 09/07/22 07:16 BP 128/68 09/07/22 07:16 Pulse Ox 96 09/07/22 07:16 O2 Del Method Oxymask 09/07/22 07:16 O2 Flow Rate 5 09/07/22 07:16 FiO2 35 08/31/22 03:18 BMI result Body Mass Index 29.6 Const: Other: Constitutional : Awake, interactive, in mild resp distress Neck : Normal inspection, Supple Cardiovascular : irregular irregular, no lower extremity edema Respiratory : not in distress, chest wall moving bilaterally, decrease air movement at bases, right sided ML crackles. tachypneic. Skin : Warm, Dry Neurological : Alert & oriented to self and place sometimes, can get easily confused, No focal deficit Objective Data Active Medications Acetaminophen (Acetaminophen 325 Mg Tablet) 650 mg PO Q6H PRN PRN Reason: Pain, Mild (Pain Scale 1-3) Last Admin: 09/02/22 15:05 Dose: 650 mg Documented By: REGINALD Albuterol/Ipratropium (Albuterol/Iprat 2.5/0.5mg 3 Ml Ampul.Neb) 3 ml INHALE Q4H PRN PRN Reason: Wheezing Last Admin: 09/07/22 01:04 Dose: 3 ml Documented By: LINDA Apixaban (Apixaban 5 Mg Tablet) 5 mg PO BID [facility] Last Admin: 09/07/22 09:11 Dose: 5 mg Documented By: REGINALD Aspirin (Aspirin Enteric Coated 81 Mg Tablet.) 81 mg PO DAILY [facility] Last Admin: 09/07/22 09:11 Dose: 81 mg Documented By: REGINALD Atorvastatin Calcium (Atorvastatin Calcium 20 Mg Tablet) 20 mg PO BEDTIME [facility] Last Admin: 09/06/22 21:48 Dose: 20 mg Documented By: ANNIE Docusate Sodium (Docusate Sodium 100 Mg Capsule) 100 mg PO DAILY PRN PRN Reason: Constipation Last Admin: 09/03/22 08:24 Dose: 100 mg Documented By: REGINALD Furosemide (Furosemide 40 Mg/4 Ml Vial) 60 mg IVPUSH BID@0900,1800 [facility]; Protocol Last Admin: 09/07/22 09:10 Dose: 60 mg Documented By: REGINALD Glipizide (Glipizide 5 Mg Tablet) 5 mg PO DAILY [facility] Last Admin: 09/07/22 09:11 Dose: 5 mg Documented By: REGINALD Glucose (Glucose Gel 15 Gm Gel..Gram.) 15 gm PO Q15M PRN; Protocol PRN Reason: per Hypoglycemia Standing Ord. Last Admin: 09/01/22 08:59 Dose: 15 gm Documented By: [place] Piperacillin Sod/Tazobactam (Sod 4.5 gm/ Sodium Chloride) 100 mls @ 200 mls/hr IV Q6H [facility] Last Infusion: 09/07/22 08:50 Dose: 0 mls/hr Documented By: REGINALD Vancomycin HCl 1,250 mg/ (Sodium Chloride) 250 mls @ 166.667 mls/hr IV Q24H [facility] Last Infusion: 09/06/22 14:48 Dose: 0 mls/hr Documented By: [place] Insulin Human Lispro (Insulin Lispro 100 Unit/Ml 3 Ml Vial) 0 unit SUBCUT QIDACHS [facility]; Protocol Last Admin: 09/07/22 09:11 Dose: 4 unit Documented By: REGINALD Levothyroxine Sodium (Levothyroxine Sodium 112 Mcg Tablet) 112 mcg PO DAILY@0600 [facility] Last Admin: 09/07/22 06:29 Dose: Not Given Documented By: ANNIE Non-Admin Reason: Patient Refused Metformin HCl (Metformin Hcl 850 Mg Tablet) 850 mg PO BIDWM [facility] Last Admin: 09/07/22 08:49 Dose: Not Given Documented By: REGINALD Non-Admin Reason: Patient Refused Methylprednisolone Sodium Succinate (Methylprednisolone Sod Succ 40 Mg/Ml Vial) 40 mg IVPUSH Q24H [facility] Last Admin: 09/06/22 12:07 Dose: 40 mg Documented By: [place] Metoprolol Tartrate (Metoprolol Tartrate 25 Mg Tablet) 75 mg PO BID [facility]; Protocol Last Admin: 09/07/22 09:13 Dose: 75 mg Documented By: REGINALD Multivitamins/Vitamin C (Multivitamin Tablet) 1 tab PO DAILY [facility] Last Admin: 09/07/22 08:50 Dose: Not Given Documented By: REGINALD Non-Admin Reason: Patient Refused Nystatin (Nystatin Powder 15 Gm Bottle) 1 appl TOPICAL BID [facility]; Protocol Last Admin: 09/07/22 09:27 Dose: Not Given Documented By: REGINALD Non-Admin Reason: Patient Refused Ondansetron HCl (Ondansetron Hcl 4 Mg/2 Ml Vial) 4 mg IVPUSH Q8H PRN PRN Reason: Nausea and Vomiting Pharmacy Consult (Consult Rx Vancomycin Dosing) 1 each MISCELLANE DAILY PRN PRN Reason: Consult order Sodium Chloride (0.9 % Sodium Chloride Flush 3 Ml Syringe) 3 ml IVFLUSH QSHIFT [facility] Last Admin: 09/07/22 09:10 Dose: 3 ml Documented By: REGINALD Labs 09/06/22 07:14 09/07/22 06:08 Labs: Laboratory Results - last 24 hr 09/06/22 09/06/22 09/06/22 11:10 15:27 20:04 Estim Creat Clear Calc Estimated GFR POC Glucose 239 H 286 H 279 H 09/07/22 09/07/22 06:08 07:15 Estim Creat Clear Calc 44.1 Estimated GFR 60 POC Glucose 238 H Microbiology Microbiology Results: Microbiology 09/05/22 12:09 Blood Culture - Preliminary Blood - Venous No growth after 24 hours. 09/05/22 12:09 Blood Culture - Preliminary Blood - Venous No growth after 24 hours. Assessment and Plan (1) Aspiration pneumonia: Status: Acute (2) Acute respiratory failure with hypoxia: Status: Acute (3) Atrial fibrillation with RVR: Status: Acute (4) CHF (congestive heart failure): Status: Acute Plan 77-year-old female with hypothyroidism, [id number] type 2 diabetes, hypertension, hyperlipidemia, paroxysmal atrial fibrillation anticoagulated with Eliquis, history of invasive ductal carcinoma of the breast, and history of uterine cancer presentd with mechanical fall, afib with rvr Acute hypoxic respiratory failure 2/2 acute diastolic CHF exacerbation and aspiration pneumonia\pneumonitis repeated CXR showing mildly improved bilateral effusions but worsened right sided infiltrates on IV lasix, a dose of Metolazone continue Steroids, Abx get cardiolgoy eval monitor I\O wean O2 down as tolerated SIRS 2/2 Aspiration pneumonitis\pneumonia Hypoxia, Leukocytosis and CXR showing infiltrates Pending cultures, negative LA IV steroids and empirical Abx pending final cultures pulm consult chest PT [employer] eval, modified diet paroxysmal afib with rvr, resolved severe on echo Continue eliquis, metoprolol to 75 bid with better rate control Hypotension, resolved enapril on hold likely 2/2 dehydration, meds?, possible infection improved with Albumin, IVF boluses lack Capacity 2/2 cognitive impairment evaluated by psych on admission, has no capacity to sign AMA or take medical decisions at this point, HCP invoked pending safe discharge plan seen by psych again 08/30/22 to eval capacity to change HCP, does not appear to have capacity for that decision as well. DM with hyperglycemia and hypoglycemia insulin, glargine disconitnued hypothryoid synthroid hld statin history of breast and uterine cancer outpatient oncology follow up dvt prophylaxis Eliquis Code status discussed with HCP, daughter Dori who does not want her mother to suffer and wants her to be comfortable. explained the change in status and possible need for ICU admission, intubation. HCP does not want her mother to have CPR or intubation. she is ok with trials of pressors if needed but would change her status to comfort measures if she fails to improve. dr Fabiola hough the phonecall. MOLST form will be filled and signed. code status changed to DNR\DNI reason for continued hospitalization: safe dispo Time Spent With Patient Time: Total time managing care of this patient today ____ minutes. Quality Stroke Does the patient have a stroke diagnosis?: No VTE Prior VTE?: No VTE Risk Level:: Medical - moderate - high VTE Device Contraindication: Treatment Not Indicated VTE Drug Contraindication: N/A - Med Ordered
[2022-09-07 11:00] LABS: Glucose, Whole Blood 226 mg/dL (60-115)
[2022-09-07] MEDS: methylPREDNISolone Sod Succ 40 MG/ML VIAL IVPUSH (12:35)
[2022-09-07 12:55] LABS: Vancomycin Random 8.3 mcg/mL (15-20)
--- NOTE | 2022-09-07 13:03 | PM.CNPUL ---
History of Present Illness History of Present Illness Consult date: 09/07/22 Chief complaint: fall, afib rvr Review of Systems Review of Systems: Yes Unobtainable due to mental condition Constitutional: Constitutional: Denies body ache(s), Denies chills, Reports fatigue, Reports lethargy, Reports malaise and Reports weakness Eyes: Eyes: Reports no additional eye complaints Cardiovascular: Cardiovascular: Reports no additional cardiovascular complaints and Reports dyspnea Respiratory: Respiratory: Reports cough, Reports dyspnea and Reports wheezing Gastrointestinal: Gastrointestinal: Reports no additional gastrointestinal complaints Musculoskeletal: Musculoskeletal: Reports muscle weakness Neurologic: Reports weakness Endocrine: Endocrine: Reports fatigue Allergic/Immunologic: Allergic/Immunologic: Reports wheezing PMFSH Past Medical History Medical History Asymptomatic bacteriuria Atrial fibrillation Chronic anticoagulation History of uterine cancer HLD (hyperlipidemia) HTN (hypertension) Hypothyroidism Invasive ductal carcinoma of left breast Type 2 diabetes mellitus Surgical History Surgical History History of hysterectomy for cancer History of knee surgery History of lumpectomy of right breast (05/25/17) History of right breast biopsy Social History Social History Household Members: None Housing: House Do you presently have visiting nurse or other home services: No Alcohol intake: never Patient Tobacco Use Status: Never used Tobacco Use of substances other than those prescribed or required for medical reasons: No Currently Displaying Signs/Symptoms of Drug Intoxication Withdrawal: No Have you been hit, kicked, punched, or otherwise hurt by someone within the past year? If so, by whom?: No Do you feel safe in your current relationship?: No Current Relationship Is there a partner from a previous relationship who is making you feel unsafe now?: No Are you made to feel afraid or neglected: No Advance Directives: No Advance Directives Information Provided: No Do you have thoughts of harming others: None Recently lost weight without trying: No How much weight loss: Not applicable Eating poorly because of decreased appetite: No Nutrition screen score: 0 Patient : No Poor oral hygiene: No service: No Current occupational status: retired Meds Allergies Allergy/AdvReac Type Severity Reaction Status Date / Time No Known Allergies Allergy Unverified 12/23/19 15:40 [No Known Allergies*] Active Medications: Current Medications Acetaminophen (Acetaminophen 325 Mg Tablet) 650 mg PO Q6H PRN PRN Reason: Pain, Mild (Pain Scale 1-3) Last Admin: 09/02/22 15:05 Dose: 650 mg Albuterol/Ipratropium (Albuterol/Iprat 2.5/0.5mg 3 Ml Ampul.Neb) 3 ml INHALE Q4H PRN PRN Reason: Wheezing Last Admin: 09/07/22 01:04 Dose: 3 ml Apixaban (Apixaban 5 Mg Tablet) 5 mg PO BID [facility] Last Admin: 09/07/22 09:11 Dose: 5 mg Aspirin (Aspirin Enteric Coated 81 Mg Tablet.Dr) 81 mg PO DAILY [facility] Last Admin: 09/07/22 09:11 Dose: 81 mg Atorvastatin Calcium (Atorvastatin Calcium 20 Mg Tablet) 20 mg PO BEDTIME [facility] Last Admin: 09/06/22 21:48 Dose: 20 mg Docusate Sodium (Docusate Sodium 100 Mg Capsule) 100 mg PO DAILY PRN PRN Reason: Constipation Last Admin: 09/03/22 08:24 Dose: 100 mg Furosemide (Furosemide 40 Mg/4 Ml Vial) 60 mg IVPUSH BID@0900,1800 [facility]; Protocol Last Admin: 09/07/22 09:10 Dose: 60 mg Glipizide (Glipizide 5 Mg Tablet) 5 mg PO DAILY [facility] Last Admin: 09/07/22 09:11 Dose: 5 mg Glucose (Glucose Gel 15 Gm Gel..Gram.) 15 gm PO Q15M PRN; Protocol PRN Reason: per Hypoglycemia Standing Ord. Last Admin: 09/01/22 08:59 Dose: 15 gm Piperacillin Sod/Tazobactam (Sod 4.5 gm/ Sodium Chloride) 100 mls @ 200 mls/hr IV Q6H [facility] Last Admin: 09/07/22 12:34 Dose: 200 mls/hr Vancomycin HCl 1,250 mg/ (Sodium Chloride) 250 mls @ 166.667 mls/hr IV Q24H [facility] Last Infusion: 09/06/22 14:48 Dose: 0 mls/hr Insulin Human Lispro (Insulin Lispro 100 Unit/Ml 3 Ml Vial) 0 unit SUBCUT QIDACHS [facility]; Protocol Last Admin: 09/07/22 12:34 Dose: 4 unit Levalbuterol HCl (Levalbuterol Hcl 1.25 Mg/3 Ml Vial.Neb) 1.25 mg INHALE RQ4H WHILE AWAKE [facility] Levothyroxine Sodium (Levothyroxine Sodium 112 Mcg Tablet) 112 mcg PO DAILY@0600 [facility] Last Admin: 09/07/22 06:29 Dose: Not Given Metformin HCl (Metformin Hcl 850 Mg Tablet) 850 mg PO BIDWM [facility] Last Admin: 09/07/22 08:49 Dose: Not Given Methylprednisolone Sodium Succinate (Methylprednisolone Sod Succ 40 Mg/Ml Vial) 60 mg IVPUSH Q8H [facility] Metoprolol Tartrate (Metoprolol Tartrate 25 Mg Tablet) 75 mg PO BID [facility]; Protocol Last Admin: 09/07/22 09:13 Dose: 75 mg Multivitamins/Vitamin C (Multivitamin Tablet) 1 tab PO DAILY [facility] Last Admin: 09/07/22 08:50 Dose: Not Given Nystatin (Nystatin Powder 15 Gm Bottle) 1 appl TOPICAL BID [facility]; Protocol Last Admin: 09/07/22 09:27 Dose: Not Given Ondansetron HCl (Ondansetron Hcl 4 Mg/2 Ml Vial) 4 mg IVPUSH Q8H PRN PRN Reason: Nausea and Vomiting Pharmacy Consult (Consult Rx Vancomycin Dosing) 1 each MISCELLANE DAILY PRN PRN Reason: Consult order Sodium Chloride (0.9 % Sodium Chloride Flush 3 Ml Syringe) 3 ml IVFLUSH QSHIFT [facility] Last Admin: 09/07/22 09:10 Dose: 3 ml Home Medications Medication Instructions Recorded Confirmed Last Taken Type aspirin 81 mg tablet,delayed 81 mg PO DAILY 05/05/20 07/28/22 2 Days Ago History release ~07/26/22 atorvastatin 20 mg tablet 20 mg PO BEDTIME 05/05/20 07/28/22 2 Days Ago History ~07/26/22 blood sugar diagnostic #10 ea 05/05/20 07/28/22 Unknown History enalapril maleate 20 mg tablet 20 mg PO DAILY 05/05/20 07/28/22 2 Days Ago History ~07/26/22 levothyroxine 112 mcg tablet 112 mcg PO DAILY@0600 05/05/20 07/28/22 2 Days Ago History ~07/26/22 multivitamin 1 tab PO DAILY 05/05/20 07/28/22 2 Days Ago History ~07/26/22 apixaban 5 mg tablet (Eliquis) 5 mg PO BID 07/21/22 07/28/22 2 Days Ago History ~07/26/22 ceramides 1,3,6-II (CeraVe topical 1 appl topical NEEDED PRN Dry 07/28/22 07/28/22 Unknown History cream) Skin glipizide 10 mg tablet 10 mg PO DAILY 07/28/22 07/28/22 2 Days Ago History ~07/26/22 Physical Exam Vital Signs: Vital Signs: Last Vital Signs Temp 98.6 F 09/07/22 11:00 Pulse 70 09/07/22 11:00 Resp 16 09/07/22 11:00 BP 116/65 09/07/22 11:00 Pulse Ox 93 09/07/22 11:00 O2 Del Method Oxymask 09/07/22 11:00 O2 Flow Rate 5 09/07/22 11:00 FiO2 35 08/31/22 03:18 BMI result Body Mass Index 29.6 Const: General: awake, in distress mild and ill appearing HEENT: Head: Yes normocephalic Neck: Neck: Yes supple Chest: Chest palpation & inspection: normal inspection of the chest Cardio: Heart sounds: S1 normal heart sound present and S2 normal heart sound present GI: Palpation (GI): Soft to palpation Skin: General skin exam: no rashes or lesions noted Extrem: General: No clubbing and No cyanosis Results Laboratory Findings 09/06/22 07:14 09/07/22 06:08 ABG, PT/INR, D-dimer: PT/INR, D-dimer PT 11.9 SEC (10.0-13.1) 07/27/22 19:54 INR 1.0 (0.9-1.1) 07/27/22 19:54 Abnormal lab findings: Abnormal Labs 07/27/22 07/27/22 07/27/22 19:27 19:53 19:53 WBC 12.8 H MPV Immature Gran % (Auto) 0.5 H Neut % (Auto) 83.8 H Lymph % (Auto) 5.5 L Lymph # (Auto) 0.7 L Daniels # (Auto) 1.3 H Abs Immat Gran (auto) 0.07 H Absolute Neuts (auto) 10.8 H VBG pH VBG HCO3 Sodium Chloride Carbon Dioxide Anion Gap BUN 26 H POC Glucose 409 H* Random Glucose 461 H* Fasting Glucose Lactic Acid Lactic Acid F/U @ 2Hr Calcium AST 44 H ALT 65 H Alkaline Phosphatase 118 H Total Creatine Kinase 180 H B-Natriuretic Peptide Total Protein 6.2 L Albumin 3.3 L TSH Ur Specific Morris Urine Protein Urine Glucose (UA) Urine Blood Urine RBC Random Vancomycin 07/27/22 07/27/22 07/27/22 19:53 19:54 19:54 WBC MPV Immature Gran % (Auto) Neut % (Auto) Lymph % (Auto) Lymph # (Auto) Daniels # (Auto) Abs Immat Gran (auto) Absolute Neuts (auto) VBG pH VBG HCO3 Sodium Chloride Carbon Dioxide Anion Gap BUN POC Glucose Random Glucose Fasting Glucose Lactic Acid 2.4 H* Lactic Acid F/U @ 2Hr Calcium AST ALT Alkaline Phosphatase Total Creatine Kinase B-Natriuretic Peptide 213 H Total Protein Albumin TSH 6.13 H Ur Specific Morris Urine Protein Urine Glucose (UA) Urine Blood Urine RBC Random Vancomycin 07/27/22 07/27/22 07/27/22 20:00 20:14 22:20 WBC MPV Immature Gran % (Auto) Neut % (Auto) Lymph % (Auto) Lymph # (Auto) Daniels # (Auto) Abs Immat Gran (auto) Absolute Neuts (auto) VBG pH 7.46 H VBG HCO3 27 H Sodium Chloride Carbon Dioxide Anion Gap BUN POC Glucose Random Glucose Fasting Glucose Lactic Acid Lactic Acid F/U @ 2Hr 4.2 H* Calcium AST ALT Alkaline Phosphatase Total Creatine Kinase B-Natriuretic Peptide Total Protein Albumin TSH Ur Specific Morris >= 1.030 H Urine Protein 30 (1+) H Urine Glucose (UA) >=1000 H Urine Blood Small (1+) H Urine RBC 3-5 H Random Vancomycin 07/27/22 07/28/22 07/28/22 22:55 02:25 07:02 WBC MPV Immature Gran % (Auto) Neut % (Auto) Lymph % (Auto) Lymph # (Auto) Daniels # (Auto) Abs Immat Gran (auto) Absolute Neuts (auto) VBG pH VBG HCO3 Sodium Chloride Carbon Dioxide Anion Gap BUN POC Glucose 306 H 292 H 373 H* Random Glucose Fasting Glucose Lactic Acid Lactic Acid F/U @ 2Hr Calcium AST ALT Alkaline Phosphatase Total Creatine Kinase B-Natriuretic Peptide Total Protein Albumin TSH Ur Specific Morris Urine Protein Urine Glucose (UA) Urine Blood Urine RBC Random Vancomycin 07/28/22 07/28/22 07/28/22 08:41 11:35 16:04 WBC MPV Immature Gran % (Auto) Neut % (Auto) Lymph % (Auto) Lymph # (Auto) Daniels # (Auto) Abs Immat Gran (auto) Absolute Neuts (auto) VBG pH VBG HCO3 Sodium Chloride Carbon Dioxide Anion Gap BUN POC Glucose 328 H 288 H 395 H* Random Glucose Fasting Glucose Lactic Acid Lactic Acid F/U @ 2Hr Calcium AST ALT Alkaline Phosphatase Total Creatine Kinase B-Natriuretic Peptide Total Protein Albumin TSH Ur Specific Morris Urine Protein Urine Glucose (UA) Urine Blood Urine RBC Random Vancomycin 07/28/22 07/29/22 07/29/22 19:19 07:25 07:25 WBC 16.5 H MPV Immature Gran % (Auto) Neut % (Auto) Lymph % (Auto) Lymph # (Auto) Daniels # (Auto) Abs Immat Gran (auto) Absolute Neuts (auto) VBG pH VBG HCO3 Sodium Chloride Carbon Dioxide Anion Gap BUN 30 H POC Glucose 291 H Random Glucose Fasting Glucose Lactic Acid Lactic Acid F/U @ 2Hr Calcium AST ALT Alkaline Phosphatase Total Creatine Kinase B-Natriuretic Peptide Total Protein Albumin TSH Ur Specific Morris Urine Protein Urine Glucose (UA) Urine Blood Urine RBC Random Vancomycin 07/29/22 07/29/22 07/29/22 10:53 15:48 19:49 WBC MPV Immature Gran % (Auto) Neut % (Auto) Lymph % (Auto) Lymph # (Auto) Daniels # (Auto) Abs Immat Gran (auto) Absolute Neuts (auto) VBG pH VBG HCO3 Sodium Chloride Carbon Dioxide Anion Gap BUN POC Glucose 116 H 131 H 119 H Random Glucose Fasting Glucose Lactic Acid Lactic Acid F/U @ 2Hr Calcium AST ALT Alkaline Phosphatase Total Creatine Kinase B-Natriuretic Peptide Total Protein Albumin TSH Ur Specific Morris Urine Protein Urine Glucose (UA) Urine Blood Urine RBC Random Vancomycin 07/30/22 07/30/22 07/30/22 07:17 07:17 07:23 WBC 12.4 H MPV Immature Gran % (Auto) Neut % (Auto) Lymph % (Auto) Lymph # (Auto) Daniels # (Auto) Abs Immat Gran (auto) Absolute Neuts (auto) VBG pH VBG HCO3 Sodium 134 L Chloride Carbon Dioxide Anion Gap BUN 31 H POC Glucose 218 H Random Glucose 195 H Fasting Glucose Lactic Acid Lactic Acid F/U @ 2Hr Calcium AST ALT Alkaline Phosphatase Total Creatine Kinase B-Natriuretic Peptide Total Protein Albumin TSH Ur Specific Morris Urine Protein Urine Glucose (UA) Urine Blood Urine RBC Random Vancomycin 07/30/22 07/30/22 07/30/22 10:58 16:25 20:07 WBC MPV Immature Gran % (Auto) Neut % (Auto) Lymph % (Auto) Lymph # (Auto) Daniels # (Auto) Abs Immat Gran (auto) Absolute Neuts (auto) VBG pH VBG HCO3 Sodium Chloride Carbon Dioxide Anion Gap BUN POC Glucose 166 H 172 H 118 H Random Glucose Fasting Glucose Lactic Acid Lactic Acid F/U @ 2Hr Calcium AST ALT Alkaline Phosphatase Total Creatine Kinase B-Natriuretic Peptide Total Protein Albumin TSH Ur Specific Morris Urine Protein Urine Glucose (UA) Urine Blood Urine RBC Random Vancomycin 07/31/22 07/31/22 07/31/22 07:40 11:12 16:45 WBC MPV Immature Gran % (Auto) Neut % (Auto) Lymph % (Auto) Lymph # (Auto) Daniels # (Auto) Abs Immat Gran (auto) Absolute Neuts (auto) VBG pH VBG HCO3 Sodium Chloride Carbon Dioxide Anion Gap BUN POC Glucose 189 H 257 H 301 H Random Glucose Fasting Glucose Lactic Acid Lactic Acid F/U @ 2Hr Calcium AST ALT Alkaline Phosphatase Total Creatine Kinase B-Natriuretic Peptide Total Protein Albumin TSH Ur Specific Morris Urine Protein Urine Glucose (UA) Urine Blood Urine RBC Random Vancomycin 07/31/22 08/01/22 08/01/22 21:08 07:14 11:02 WBC MPV Immature Gran % (Auto) Neut % (Auto) Lymph % (Auto) Lymph # (Auto) Daniels # (Auto) Abs Immat Gran (auto) Absolute Neuts (auto) VBG pH VBG HCO3 Sodium Chloride Carbon Dioxide Anion Gap BUN POC Glucose 217 H 190 H 180 H Random Glucose Fasting Glucose Lactic Acid Lactic Acid F/U @ 2Hr Calcium AST ALT Alkaline Phosphatase Total Creatine Kinase B-Natriuretic Peptide Total Protein Albumin TSH Ur Specific Morris Urine Protein Urine Glucose (UA) Urine Blood Urine RBC Random Vancomycin 08/01/22 08/01/22 08/02/22 16:12 19:36 05:07 WBC MPV Immature Gran % (Auto) Neut % (Auto) Lymph % (Auto) Lymph # (Auto) Daniels # (Auto) Abs Immat Gran (auto) Absolute Neuts (auto) VBG pH VBG HCO3 Sodium Chloride 95 L Carbon Dioxide 33 H Anion Gap BUN 24 H POC Glucose 155 H 191 H Random Glucose Fasting Glucose 216 H Lactic Acid Lactic Acid F/U @ 2Hr Calcium 8.3 L AST ALT Alkaline Phosphatase Total Creatine Kinase B-Natriuretic Peptide Total Protein Albumin TSH Ur Specific Morris Urine Protein Urine Glucose (UA) Urine Blood Urine RBC Random Vancomycin 08/02/22 08/02/22 08/02/22 07:16 11:08 20:39 WBC MPV Immature Gran % (Auto) Neut % (Auto) Lymph % (Auto) Lymph # (Auto) Daniels # (Auto) Abs Immat Gran (auto) Absolute Neuts (auto) VBG pH VBG HCO3 Sodium Chloride Carbon Dioxide Anion Gap BUN POC Glucose 195 H 184 H 188 H Random Glucose Fasting Glucose Lactic Acid Lactic Acid F/U @ 2Hr Calcium AST ALT Alkaline Phosphatase Total Creatine Kinase B-Natriuretic Peptide Total Protein Albumin TSH Ur Specific Morris Urine Protein Urine Glucose (UA) Urine Blood Urine RBC Random Vancomycin 08/03/22 08/03/22 08/03/22 06:13 06:13 07:43 WBC 12.0 H MPV Immature Gran % (Auto) Neut % (Auto) Lymph % (Auto) Lymph # (Auto) Daniels # (Auto) Abs Immat Gran (auto) Absolute Neuts (auto) VBG pH VBG HCO3 Sodium Chloride 94 L Carbon Dioxide 37 H Anion Gap 10 L BUN 23 H POC Glucose 141 H Random Glucose Fasting Glucose 109 H Lactic Acid Lactic Acid F/U @ 2Hr Calcium 8.3 L AST ALT Alkaline Phosphatase Total Creatine Kinase B-Natriuretic Peptide Total Protein Albumin TSH Ur Specific Morris Urine Protein Urine Glucose (UA) Urine Blood Urine RBC Random Vancomycin 08/03/22 08/03/22 08/04/22 11:08 19:39 05:55 WBC 13.1 H MPV Immature Gran % (Auto) Neut % (Auto) Lymph % (Auto) Lymph # (Auto) Daniels # (Auto) Abs Immat Gran (auto) Absolute Neuts (auto) VBG pH VBG HCO3 Sodium Chloride Carbon Dioxide Anion Gap BUN POC Glucose 187 H 128 H Random Glucose Fasting Glucose Lactic Acid Lactic Acid F/U @ 2Hr Calcium AST ALT Alkaline Phosphatase Total Creatine Kinase B-Natriuretic Peptide Total Protein Albumin TSH Ur Specific Morris Urine Protein Urine Glucose (UA) Urine Blood Urine RBC Random Vancomycin 08/04/22 08/04/22 08/04/22 05:55 09:43 11:34 WBC MPV Immature Gran % (Auto) Neut % (Auto) Lymph % (Auto) Lymph # (Auto) Daniels # (Auto) Abs Immat Gran (auto) Absolute Neuts (auto) VBG pH VBG HCO3 Sodium Chloride 92 L Carbon Dioxide 34 H Anion Gap BUN 23 H POC Glucose 137 H 196 H Random Glucose Fasting Glucose Lactic Acid Lactic Acid F/U @ 2Hr Calcium AST ALT Alkaline Phosphatase Total Creatine Kinase B-Natriuretic Peptide Total Protein Albumin TSH Ur Specific Morris Urine Protein Urine Glucose (UA) Urine Blood Urine RBC Random Vancomycin 08/04/22 08/04/22 08/05/22 16:10 19:36 08:00 WBC MPV Immature Gran % (Auto) Neut % (Auto) Lymph % (Auto) Lymph # (Auto) Daniels # (Auto) Abs Immat Gran (auto) Absolute Neuts (auto) VBG pH VBG HCO3 Sodium Chloride Carbon Dioxide Anion Gap BUN POC Glucose 260 H 179 H 197 H Random Glucose Fasting Glucose Lactic Acid Lactic Acid F/U @ 2Hr Calcium AST ALT Alkaline Phosphatase Total Creatine Kinase B-Natriuretic Peptide Total Protein Albumin TSH Ur Specific Morris Urine Protein Urine Glucose (UA) Urine Blood Urine RBC Random Vancomycin 08/05/22 08/05/22 08/05/22 11:09 16:10 19:59 WBC MPV Immature Gran % (Auto) Neut % (Auto) Lymph % (Auto) Lymph # (Auto) Daniels # (Auto) Abs Immat Gran (auto) Absolute Neuts (auto) VBG pH VBG HCO3 Sodium Chloride Carbon Dioxide Anion Gap BUN POC Glucose 178 H 195 H 285 H Random Glucose Fasting Glucose Lactic Acid Lactic Acid F/U @ 2Hr Calcium AST ALT Alkaline Phosphatase Total Creatine Kinase B-Natriuretic Peptide Total Protein Albumin TSH Ur Specific Morris Urine Protein Urine Glucose (UA) Urine Blood Urine RBC Random Vancomycin 08/06/22 08/06/22 08/06/22 07:24 11:46 16:06 WBC MPV Immature Gran % (Auto) Neut % (Auto) Lymph % (Auto) Lymph # (Auto) Daniels # (Auto) Abs Immat Gran (auto) Absolute Neuts (auto) VBG pH VBG HCO3 Sodium Chloride Carbon Dioxide Anion Gap BUN POC Glucose 210 H 181 H 197 H Random Glucose Fasting Glucose Lactic Acid Lactic Acid F/U @ 2Hr Calcium AST ALT Alkaline Phosphatase Total Creatine Kinase B-Natriuretic Peptide Total Protein Albumin TSH Ur Specific Morris Urine Protein Urine Glucose (UA) Urine Blood Urine RBC Random Vancomycin 08/06/22 08/07/22 08/07/22 19:41 07:23 10:59 WBC MPV Immature Gran % (Auto) Neut % (Auto) Lymph % (Auto) Lymph # (Auto) Daniels # (Auto) Abs Immat Gran (auto) Absolute Neuts (auto) VBG pH VBG HCO3 Sodium Chloride Carbon Dioxide Anion Gap BUN POC Glucose 151 H 177 H 153 H Random Glucose Fasting Glucose Lactic Acid Lactic Acid F/U @ 2Hr Calcium AST ALT Alkaline Phosphatase Total Creatine Kinase B-Natriuretic Peptide Total Protein Albumin TSH Ur Specific Morris Urine Protein Urine Glucose (UA) Urine Blood Urine RBC Random Vancomycin 08/07/22 08/07/22 08/08/22 16:03 19:59 08:04 WBC MPV Immature Gran % (Auto) Neut % (Auto) Lymph % (Auto) Lymph # (Auto) Daniels # (Auto) Abs Immat Gran (auto) Absolute Neuts (auto) VBG pH VBG HCO3 Sodium Chloride Carbon Dioxide Anion Gap BUN POC Glucose 117 H 206 H 182 H Random Glucose Fasting Glucose Lactic Acid Lactic Acid F/U @ 2Hr Calcium AST ALT Alkaline Phosphatase Total Creatine Kinase B-Natriuretic Peptide Total Protein Albumin TSH Ur Specific Morris Urine Protein Urine Glucose (UA) Urine Blood Urine RBC Random Vancomycin 08/08/22 08/08/22 08/08/22 11:34 16:38 20:01 WBC MPV Immature Gran % (Auto) Neut % (Auto) Lymph % (Auto) Lymph # (Auto) Daniels # (Auto) Abs Immat Gran (auto) Absolute Neuts (auto) VBG pH VBG HCO3 Sodium Chloride Carbon Dioxide Anion Gap BUN POC Glucose 287 H 196 H 189 H Random Glucose Fasting Glucose Lactic Acid Lactic Acid F/U @ 2Hr Calcium AST ALT Alkaline Phosphatase Total Creatine Kinase B-Natriuretic Peptide Total Protein Albumin TSH Ur Specific Morris Urine Protein Urine Glucose (UA) Urine Blood Urine RBC Random Vancomycin 08/09/22 08/09/22 08/09/22 07:39 11:51 15:26 WBC MPV Immature Gran % (Auto) Neut % (Auto) Lymph % (Auto) Lymph # (Auto) Daniels # (Auto) Abs Immat Gran (auto) Absolute Neuts (auto) VBG pH VBG HCO3 Sodium Chloride Carbon Dioxide Anion Gap BUN POC Glucose 187 H 123 H 116 H Random Glucose Fasting Glucose Lactic Acid Lactic Acid F/U @ 2Hr Calcium AST ALT Alkaline Phosphatase Total Creatine Kinase B-Natriuretic Peptide Total Protein Albumin TSH Ur Specific Morris Urine Protein Urine Glucose (UA) Urine Blood Urine RBC Random Vancomycin 08/09/22 08/10/22 08/10/22 20:11 11:19 15:15 WBC MPV Immature Gran % (Auto) Neut % (Auto) Lymph % (Auto) Lymph # (Auto) Daniels # (Auto) Abs Immat Gran (auto) Absolute Neuts (auto) VBG pH VBG HCO3 Sodium Chloride Carbon Dioxide Anion Gap BUN POC Glucose 214 H 342 H 182 H Random Glucose Fasting Glucose Lactic Acid Lactic Acid F/U @ 2Hr Calcium AST ALT Alkaline Phosphatase Total Creatine Kinase B-Natriuretic Peptide Total Protein Albumin TSH Ur Specific Morris Urine Protein Urine Glucose (UA) Urine Blood Urine RBC Random Vancomycin 08/10/22 08/11/22 08/11/22 19:53 11:45 15:18 WBC MPV Immature Gran % (Auto) Neut % (Auto) Lymph % (Auto) Lymph # (Auto) Daniels # (Auto) Abs Immat Gran (auto) Absolute Neuts (auto) VBG pH VBG HCO3 Sodium Chloride Carbon Dioxide Anion Gap BUN POC Glucose 158 H 331 H 135 H Random Glucose Fasting Glucose Lactic Acid Lactic Acid F/U @ 2Hr Calcium AST ALT Alkaline Phosphatase Total Creatine Kinase B-Natriuretic Peptide Total Protein Albumin TSH Ur Specific Morris Urine Protein Urine Glucose (UA) Urine Blood Urine RBC Random Vancomycin 08/11/22 08/12/22 08/12/22 20:13 07:11 11:04 WBC MPV Immature Gran % (Auto) Neut % (Auto) Lymph % (Auto) Lymph # (Auto) Daniels # (Auto) Abs Immat Gran (auto) Absolute Neuts (auto) VBG pH VBG HCO3 Sodium Chloride Carbon Dioxide Anion Gap BUN POC Glucose 165 H 167 H 134 H Random Glucose Fasting Glucose Lactic Acid Lactic Acid F/U @ 2Hr Calcium AST ALT Alkaline Phosphatase Total Creatine Kinase B-Natriuretic Peptide Total Protein Albumin TSH Ur Specific Morris Urine Protein Urine Glucose (UA) Urine Blood Urine RBC Random Vancomycin 08/12/22 08/12/22 08/13/22 15:14 19:54 11:08 WBC MPV Immature Gran % (Auto) Neut % (Auto) Lymph % (Auto) Lymph # (Auto) Daniels # (Auto) Abs Immat Gran (auto) Absolute Neuts (auto) VBG pH VBG HCO3 Sodium Chloride Carbon Dioxide Anion Gap BUN POC Glucose 187 H 216 H 175 H Random Glucose Fasting Glucose Lactic Acid Lactic Acid F/U @ 2Hr Calcium AST ALT Alkaline Phosphatase Total Creatine Kinase B-Natriuretic Peptide Total Protein Albumin TSH Ur Specific Morris Urine Protein Urine Glucose (UA) Urine Blood Urine RBC Random Vancomycin 08/13/22 08/13/22 08/13/22 11:41 15:53 19:45 WBC MPV Immature Gran % (Auto) Neut % (Auto) Lymph % (Auto) Lymph # (Auto) Daniels # (Auto) Abs Immat Gran (auto) Absolute Neuts (auto) VBG pH VBG HCO3 Sodium Chloride Carbon Dioxide Anion Gap BUN POC Glucose 146 H 306 H 165 H Random Glucose Fasting Glucose Lactic Acid Lactic Acid F/U @ 2Hr Calcium AST ALT Alkaline Phosphatase Total Creatine Kinase B-Natriuretic Peptide Total Protein Albumin TSH Ur Specific Morris Urine Protein Urine Glucose (UA) Urine Blood Urine RBC Random Vancomycin 08/14/22 08/14/22 08/14/22 07:19 11:20 16:25 WBC MPV Immature Gran % (Auto) Neut % (Auto) Lymph % (Auto) Lymph # (Auto) Daniels # (Auto) Abs Immat Gran (auto) Absolute Neuts (auto) VBG pH VBG HCO3 Sodium Chloride Carbon Dioxide Anion Gap BUN POC Glucose 141 H 204 H 169 H Random Glucose Fasting Glucose Lactic Acid Lactic Acid F/U @ 2Hr Calcium AST ALT Alkaline Phosphatase Total Creatine Kinase B-Natriuretic Peptide Total Protein Albumin TSH Ur Specific Morris Urine Protein Urine Glucose (UA) Urine Blood Urine RBC Random Vancomycin 08/14/22 08/15/22 08/15/22 20:15 07:10 11:09 WBC MPV Immature Gran % (Auto) Neut % (Auto) Lymph % (Auto) Lymph # (Auto) Daniels # (Auto) Abs Immat Gran (auto) Absolute Neuts (auto) VBG pH VBG HCO3 Sodium Chloride Carbon Dioxide Anion Gap BUN POC Glucose 155 H 59 L* 187 H Random Glucose Fasting Glucose Lactic Acid Lactic Acid F/U @ 2Hr Calcium AST ALT Alkaline Phosphatase Total Creatine Kinase B-Natriuretic Peptide Total Protein Albumin TSH Ur Specific Morris Urine Protein Urine Glucose (UA) Urine Blood Urine RBC Random Vancomycin 08/15/22 08/15/22 08/16/22 15:47 19:54 07:11 WBC MPV Immature Gran % (Auto) Neut % (Auto) Lymph % (Auto) Lymph # (Auto) Daniels # (Auto) Abs Immat Gran (auto) Absolute Neuts (auto) VBG pH VBG HCO3 Sodium Chloride Carbon Dioxide Anion Gap BUN POC Glucose 140 H 241 H 172 H Random Glucose Fasting Glucose Lactic Acid Lactic Acid F/U @ 2Hr Calcium AST ALT Alkaline Phosphatase Total Creatine Kinase B-Natriuretic Peptide Total Protein Albumin TSH Ur Specific Morris Urine Protein Urine Glucose (UA) Urine Blood Urine RBC Random Vancomycin 08/16/22 08/16/22 08/16/22 11:12 15:42 19:51 WBC MPV Immature Gran % (Auto) Neut % (Auto) Lymph % (Auto) Lymph # (Auto) Daniels # (Auto) Abs Immat Gran (auto) Absolute Neuts (auto) VBG pH VBG HCO3 Sodium Chloride Carbon Dioxide Anion Gap BUN POC Glucose 219 H 224 H 146 H Random Glucose Fasting Glucose Lactic Acid Lactic Acid F/U @ 2Hr Calcium AST ALT Alkaline Phosphatase Total Creatine Kinase B-Natriuretic Peptide Total Protein Albumin TSH Ur Specific Morris Urine Protein Urine Glucose (UA) Urine Blood Urine RBC Random Vancomycin 08/17/22 08/17/22 08/17/22 07:11 11:04 15:37 WBC MPV Immature Gran % (Auto) Neut % (Auto) Lymph % (Auto) Lymph # (Auto) Daniels # (Auto) Abs Immat Gran (auto) Absolute Neuts (auto) VBG pH VBG HCO3 Sodium Chloride Carbon Dioxide Anion Gap BUN POC Glucose 145 H 166 H 190 H Random Glucose Fasting Glucose Lactic Acid Lactic Acid F/U @ 2Hr Calcium AST ALT Alkaline Phosphatase Total Creatine Kinase B-Natriuretic Peptide Total Protein Albumin TSH Ur Specific Morris Urine Protein Urine Glucose (UA) Urine Blood Urine RBC Random Vancomycin 08/17/22 08/18/22 08/18/22 19:29 11:28 19:01 WBC MPV Immature Gran % (Auto) Neut % (Auto) Lymph % (Auto) Lymph # (Auto) Daniels # (Auto) Abs Immat Gran (auto) Absolute Neuts (auto) VBG pH VBG HCO3 Sodium Chloride Carbon Dioxide Anion Gap BUN POC Glucose 239 H 140 H 246 H Random Glucose Fasting Glucose Lactic Acid Lactic Acid F/U @ 2Hr Calcium AST ALT Alkaline Phosphatase Total Creatine Kinase B-Natriuretic Peptide Total Protein Albumin TSH Ur Specific Morris Urine Protein Urine Glucose (UA) Urine Blood Urine RBC Random Vancomycin 08/19/22 08/19/22 08/19/22 07:24 12:09 16:03 WBC MPV Immature Gran % (Auto) Neut % (Auto) Lymph % (Auto) Lymph # (Auto) Daniels # (Auto) Abs Immat Gran (auto) Absolute Neuts (auto) VBG pH VBG HCO3 Sodium Chloride Carbon Dioxide Anion Gap BUN POC Glucose 172 H 172 H 221 H Random Glucose Fasting Glucose Lactic Acid Lactic Acid F/U @ 2Hr Calcium AST ALT Alkaline Phosphatase Total Creatine Kinase B-Natriuretic Peptide Total Protein Albumin TSH Ur Specific Morris Urine Protein Urine Glucose (UA) Urine Blood Urine RBC Random Vancomycin 08/19/22 08/20/22 08/20/22 19:47 11:06 15:41 WBC MPV Immature Gran % (Auto) Neut % (Auto) Lymph % (Auto) Lymph # (Auto) Daniels # (Auto) Abs Immat Gran (auto) Absolute Neuts (auto) VBG pH VBG HCO3 Sodium Chloride Carbon Dioxide Anion Gap BUN POC Glucose 251 H 156 H 232 H Random Glucose Fasting Glucose Lactic Acid Lactic Acid F/U @ 2Hr Calcium AST ALT Alkaline Phosphatase Total Creatine Kinase B-Natriuretic Peptide Total Protein Albumin TSH Ur Specific Morris Urine Protein Urine Glucose (UA) Urine Blood Urine RBC Random Vancomycin 08/20/22 08/21/22 08/21/22 20:44 07:09 10:59 WBC MPV Immature Gran % (Auto) Neut % (Auto) Lymph % (Auto) Lymph # (Auto) Daniels # (Auto) Abs Immat Gran (auto) Absolute Neuts (auto) VBG pH VBG HCO3 Sodium Chloride Carbon Dioxide Anion Gap BUN POC Glucose 271 H 198 H 297 H Random Glucose Fasting Glucose Lactic Acid Lactic Acid F/U @ 2Hr Calcium AST ALT Alkaline Phosphatase Total Creatine Kinase B-Natriuretic Peptide Total Protein Albumin TSH Ur Specific Morris Urine Protein Urine Glucose (UA) Urine Blood Urine RBC Random Vancomycin 08/21/22 08/21/22 08/22/22 15:37 19:44 07:18 WBC MPV Immature Gran % (Auto) Neut % (Auto) Lymph % (Auto) Lymph # (Auto) Daniels # (Auto) Abs Immat Gran (auto) Absolute Neuts (auto) VBG pH VBG HCO3 Sodium Chloride Carbon Dioxide Anion Gap BUN POC Glucose 188 H 263 H 133 H Random Glucose Fasting Glucose Lactic Acid Lactic Acid F/U @ 2Hr Calcium AST ALT Alkaline Phosphatase Total Creatine Kinase B-Natriuretic Peptide Total Protein Albumin TSH Ur Specific Morris Urine Protein Urine Glucose (UA) Urine Blood Urine RBC Random Vancomycin 08/22/22 08/22/22 08/22/22 11:04 15:32 20:10 WBC MPV Immature Gran % (Auto) Neut % (Auto) Lymph % (Auto) Lymph # (Auto) Daniels # (Auto) Abs Immat Gran (auto) Absolute Neuts (auto) VBG pH VBG HCO3 Sodium Chloride Carbon Dioxide Anion Gap BUN POC Glucose 237 H 217 H 141 H Random Glucose Fasting Glucose Lactic Acid Lactic Acid F/U @ 2Hr Calcium AST ALT Alkaline Phosphatase Total Creatine Kinase B-Natriuretic Peptide Total Protein Albumin TSH Ur Specific Morris Urine Protein Urine Glucose (UA) Urine Blood Urine RBC Random Vancomycin 08/23/22 08/23/22 08/23/22 07:26 11:04 16:44 WBC MPV Immature Gran % (Auto) Neut % (Auto) Lymph % (Auto) Lymph # (Auto) Daniels # (Auto) Abs Immat Gran (auto) Absolute Neuts (auto) VBG pH VBG HCO3 Sodium Chloride Carbon Dioxide Anion Gap BUN POC Glucose 218 H 220 H 228 H Random Glucose Fasting Glucose Lactic Acid Lactic Acid F/U @ 2Hr Calcium AST ALT Alkaline Phosphatase Total Creatine Kinase B-Natriuretic Peptide Total Protein Albumin TSH Ur Specific Morris Urine Protein Urine Glucose (UA) Urine Blood Urine RBC Random Vancomycin 08/23/22 08/24/22 08/24/22 20:28 07:06 11:10 WBC MPV Immature Gran % (Auto) Neut % (Auto) Lymph % (Auto) Lymph # (Auto) Daniels # (Auto) Abs Immat Gran (auto) Absolute Neuts (auto) VBG pH VBG HCO3 Sodium Chloride Carbon Dioxide Anion Gap BUN POC Glucose 241 H 154 H 170 H Random Glucose Fasting Glucose Lactic Acid Lactic Acid F/U @ 2Hr Calcium AST ALT Alkaline Phosphatase Total Creatine Kinase B-Natriuretic Peptide Total Protein Albumin TSH Ur Specific Morris Urine Protein Urine Glucose (UA) Urine Blood Urine RBC Random Vancomycin 08/24/22 08/24/22 08/25/22 15:30 19:25 07:09 WBC MPV Immature Gran % (Auto) Neut % (Auto) Lymph % (Auto) Lymph # (Auto) Daniels # (Auto) Abs Immat Gran (auto) Absolute Neuts (auto) VBG pH VBG HCO3 Sodium Chloride Carbon Dioxide Anion Gap BUN POC Glucose 196 H 150 H 141 H Random Glucose Fasting Glucose Lactic Acid Lactic Acid F/U @ 2Hr Calcium AST ALT Alkaline Phosphatase Total Creatine Kinase B-Natriuretic Peptide Total Protein Albumin TSH Ur Specific Morris Urine Protein Urine Glucose (UA) Urine Blood Urine RBC Random Vancomycin 08/25/22 08/25/22 08/26/22 11:02 15:23 07:13 WBC MPV Immature Gran % (Auto) Neut % (Auto) Lymph % (Auto) Lymph # (Auto) Daniels # (Auto) Abs Immat Gran (auto) Absolute Neuts (auto) VBG pH VBG HCO3 Sodium Chloride Carbon Dioxide Anion Gap BUN POC Glucose 199 H 230 H 196 H Random Glucose Fasting Glucose Lactic Acid Lactic Acid F/U @ 2Hr Calcium AST ALT Alkaline Phosphatase Total Creatine Kinase B-Natriuretic Peptide Total Protein Albumin TSH Ur Specific Morris Urine Protein Urine Glucose (UA) Urine Blood Urine RBC Random Vancomycin 08/26/22 08/26/22 08/26/22 10:56 16:00 20:00 WBC MPV Immature Gran % (Auto) Neut % (Auto) Lymph % (Auto) Lymph # (Auto) Daniels # (Auto) Abs Immat Gran (auto) Absolute Neuts (auto) VBG pH VBG HCO3 Sodium Chloride Carbon Dioxide Anion Gap BUN POC Glucose 266 H 194 H 141 H Random Glucose Fasting Glucose Lactic Acid Lactic Acid F/U @ 2Hr Calcium AST ALT Alkaline Phosphatase Total Creatine Kinase B-Natriuretic Peptide Total Protein Albumin TSH Ur Specific Morris Urine Protein Urine Glucose (UA) Urine Blood Urine RBC Random Vancomycin 08/27/22 08/27/22 08/27/22 07:01 11:02 16:53 WBC MPV Immature Gran % (Auto) Neut % (Auto) Lymph % (Auto) Lymph # (Auto) Daniels # (Auto) Abs Immat Gran (auto) Absolute Neuts (auto) VBG pH VBG HCO3 Sodium Chloride Carbon Dioxide Anion Gap BUN POC Glucose 197 H 173 H 120 H Random Glucose Fasting Glucose Lactic Acid Lactic Acid F/U @ 2Hr Calcium AST ALT Alkaline Phosphatase Total Creatine Kinase B-Natriuretic Peptide Total Protein Albumin TSH Ur Specific Morris Urine Protein Urine Glucose (UA) Urine Blood Urine RBC Random Vancomycin 08/27/22 08/28/22 08/28/22 20:45 07:12 11:38 WBC MPV Immature Gran % (Auto) Neut % (Auto) Lymph % (Auto) Lymph # (Auto) Daniels # (Auto) Abs Immat Gran (auto) Absolute Neuts (auto) VBG pH VBG HCO3 Sodium Chloride Carbon Dioxide Anion Gap BUN POC Glucose 133 H 138 H 182 H Random Glucose Fasting Glucose Lactic Acid Lactic Acid F/U @ 2Hr Calcium AST ALT Alkaline Phosphatase Total Creatine Kinase B-Natriuretic Peptide Total Protein Albumin TSH Ur Specific Morris Urine Protein Urine Glucose (UA) Urine Blood Urine RBC Random Vancomycin 08/28/22 08/28/22 08/29/22 15:52 20:22 07:07 WBC MPV Immature Gran % (Auto) Neut % (Auto) Lymph % (Auto) Lymph # (Auto) Daniels # (Auto) Abs Immat Gran (auto) Absolute Neuts (auto) VBG pH VBG HCO3 Sodium Chloride Carbon Dioxide Anion Gap BUN POC Glucose 265 H 132 H 136 H Random Glucose Fasting Glucose Lactic Acid Lactic Acid F/U @ 2Hr Calcium AST ALT Alkaline Phosphatase Total Creatine Kinase B-Natriuretic Peptide Total Protein Albumin TSH Ur Specific Morris Urine Protein Urine Glucose (UA) Urine Blood Urine RBC Random Vancomycin 08/29/22 08/29/22 08/29/22 11:00 16:03 19:52 WBC MPV Immature Gran % (Auto) Neut % (Auto) Lymph % (Auto) Lymph # (Auto) Daniels # (Auto) Abs Immat Gran (auto) Absolute Neuts (auto) VBG pH VBG HCO3 Sodium Chloride Carbon Dioxide Anion Gap BUN POC Glucose 217 H 162 H 142 H Random Glucose Fasting Glucose Lactic Acid Lactic Acid F/U @ 2Hr Calcium AST ALT Alkaline Phosphatase Total Creatine Kinase B-Natriuretic Peptide Total Protein Albumin TSH Ur Specific Morris Urine Protein Urine Glucose (UA) Urine Blood Urine RBC Random Vancomycin 08/30/22 08/30/22 08/30/22 07:09 11:00 16:13 WBC MPV Immature Gran % (Auto) Neut % (Auto) Lymph % (Auto) Lymph # (Auto) Daniels # (Auto) Abs Immat Gran (auto) Absolute Neuts (auto) VBG pH VBG HCO3 Sodium Chloride Carbon Dioxide Anion Gap BUN POC Glucose 125 H 117 H 145 H Random Glucose Fasting Glucose Lactic Acid Lactic Acid F/U @ 2Hr Calcium AST ALT Alkaline Phosphatase Total Creatine Kinase B-Natriuretic Peptide Total Protein Albumin TSH Ur Specific Morris Urine Protein Urine Glucose (UA) Urine Blood Urine RBC Random Vancomycin 08/30/22 08/31/22 08/31/22 21:07 07:23 11:27 WBC MPV Immature Gran % (Auto) Neut % (Auto) Lymph % (Auto) Lymph # (Auto) Daniels # (Auto) Abs Immat Gran (auto) Absolute Neuts (auto) VBG pH VBG HCO3 Sodium Chloride Carbon Dioxide Anion Gap BUN POC Glucose 185 H 166 H 259 H Random Glucose Fasting Glucose Lactic Acid Lactic Acid F/U @ 2Hr Calcium AST ALT Alkaline Phosphatase Total Creatine Kinase B-Natriuretic Peptide Total Protein Albumin TSH Ur Specific Morris Urine Protein Urine Glucose (UA) Urine Blood Urine RBC Random Vancomycin 08/31/22 08/31/22 09/01/22 16:35 20:24 08:56 WBC MPV Immature Gran % (Auto) Neut % (Auto) Lymph % (Auto) Lymph # (Auto) Daniels # (Auto) Abs Immat Gran (auto) Absolute Neuts (auto) VBG pH VBG HCO3 Sodium Chloride Carbon Dioxide Anion Gap BUN POC Glucose 202 H 187 H 53 L* Random Glucose Fasting Glucose Lactic Acid Lactic Acid F/U @ 2Hr Calcium AST ALT Alkaline Phosphatase Total Creatine Kinase B-Natriuretic Peptide Total Protein Albumin TSH Ur Specific Morris Urine Protein Urine Glucose (UA) Urine Blood Urine RBC Random Vancomycin 09/01/22 09/01/22 09/01/22 09:21 11:34 15:57 WBC MPV Immature Gran % (Auto) Neut % (Auto) Lymph % (Auto) Lymph # (Auto) Daniels # (Auto) Abs Immat Gran (auto) Absolute Neuts (auto) VBG pH VBG HCO3 Sodium Chloride Carbon Dioxide Anion Gap BUN POC Glucose 121 H 197 H 157 H Random Glucose Fasting Glucose Lactic Acid Lactic Acid F/U @ 2Hr Calcium AST ALT Alkaline Phosphatase Total Creatine Kinase B-Natriuretic Peptide Total Protein Albumin TSH Ur Specific Morris Urine Protein Urine Glucose (UA) Urine Blood Urine RBC Random Vancomycin 09/01/22 09/02/22 09/02/22 20:27 07:27 07:45 WBC MPV Immature Gran % (Auto) Neut % (Auto) Lymph % (Auto) Lymph # (Auto) Daniels # (Auto) Abs Immat Gran (auto) Absolute Neuts (auto) VBG pH VBG HCO3 Sodium Chloride Carbon Dioxide Anion Gap BUN POC Glucose 194 H 46 L* 53 L* Random Glucose Fasting Glucose Lactic Acid Lactic Acid F/U @ 2Hr Calcium AST ALT Alkaline Phosphatase Total Creatine Kinase B-Natriuretic Peptide Total Protein Albumin TSH Ur Specific Morris Urine Protein Urine Glucose (UA) Urine Blood Urine RBC Random Vancomycin 09/02/22 09/02/22 09/02/22 11:21 16:47 20:48 WBC MPV Immature Gran % (Auto) Neut % (Auto) Lymph % (Auto) Lymph # (Auto) Daniels # (Auto) Abs Immat Gran (auto) Absolute Neuts (auto) VBG pH VBG HCO3 Sodium Chloride Carbon Dioxide Anion Gap BUN POC Glucose 173 H 137 H 188 H Random Glucose Fasting Glucose Lactic Acid Lactic Acid F/U @ 2Hr Calcium AST ALT Alkaline Phosphatase Total Creatine Kinase B-Natriuretic Peptide Total Protein Albumin TSH Ur Specific Morris Urine Protein Urine Glucose (UA) Urine Blood Urine RBC Random Vancomycin 09/03/22 09/03/22 09/03/22 07:12 11:15 16:00 WBC MPV Immature Gran % (Auto) Neut % (Auto) Lymph % (Auto) Lymph # (Auto) Daniels # (Auto) Abs Immat Gran (auto) Absolute Neuts (auto) VBG pH VBG HCO3 Sodium Chloride Carbon Dioxide Anion Gap BUN POC Glucose 236 H 290 H 180 H Random Glucose Fasting Glucose Lactic Acid Lactic Acid F/U @ 2Hr Calcium AST ALT Alkaline Phosphatase Total Creatine Kinase B-Natriuretic Peptide Total Protein Albumin TSH Ur Specific Morris Urine Protein Urine Glucose (UA) Urine Blood Urine RBC Random Vancomycin 09/03/22 09/04/22 09/04/22 20:14 07:24 11:17 WBC MPV Immature Gran % (Auto) Neut % (Auto) Lymph % (Auto) Lymph # (Auto) Daniels # (Auto) Abs Immat Gran (auto) Absolute Neuts (auto) VBG pH VBG HCO3 Sodium Chloride Carbon Dioxide Anion Gap BUN POC Glucose 247 H 254 H 311 H Random Glucose Fasting Glucose Lactic Acid Lactic Acid F/U @ 2Hr Calcium AST ALT Alkaline Phosphatase Total Creatine Kinase B-Natriuretic Peptide Total Protein Albumin TSH Ur Specific Morris Urine Protein Urine Glucose (UA) Urine Blood Urine RBC Random Vancomycin 09/04/22 09/04/22 09/05/22 15:56 19:55 03:36 WBC 15.0 H MPV 9.0 L Immature Gran % (Auto) 0.5 H Neut % (Auto) 84.8 H Lymph % (Auto) 5.1 L Lymph # (Auto) 0.8 L Daniels # (Auto) 1.4 H Abs Immat Gran (auto) 0.08 H Absolute Neuts (auto) 12.7 H VBG pH VBG HCO3 Sodium Chloride Carbon Dioxide Anion Gap BUN POC Glucose 207 H 210 H Random Glucose Fasting Glucose Lactic Acid Lactic Acid F/U @ 2Hr Calcium AST ALT Alkaline Phosphatase Total Creatine Kinase B-Natriuretic Peptide Total Protein Albumin TSH Ur Specific [place] Urine Protein Urine Glucose (UA) Urine Blood Urine RBC Random Vancomycin 09/05/22 09/05/22 09/05/22 03:36 03:36 07:19 WBC MPV Immature Gran % (Auto) Neut % (Auto) Lymph % (Auto) Lymph # (Auto) Daniels # (Auto) Abs Immat Gran (auto) Absolute Neuts (auto) VBG pH VBG HCO3 Sodium Chloride 92 L Carbon Dioxide 33 H Anion Gap BUN 26 H POC Glucose 262 H Random Glucose 296 H Fasting Glucose Lactic Acid Lactic Acid F/U @ 2Hr Calcium AST ALT Alkaline Phosphatase Total Creatine Kinase B-Natriuretic Peptide 245 H Total Protein Albumin 3.0 L TSH Ur Specific Morris Urine Protein Urine Glucose (UA) Urine Blood Urine RBC Random Vancomycin 09/05/22 09/05/22 09/05/22 11:44 15:18 20:21 WBC MPV Immature Gran % (Auto) Neut % (Auto) Lymph % (Auto) Lymph # (Auto) Daniels # (Auto) Abs Immat Gran (auto) Absolute Neuts (auto) VBG pH VBG HCO3 Sodium Chloride Carbon Dioxide Anion Gap BUN POC Glucose 176 H 139 H 143 H Random Glucose Fasting Glucose Lactic Acid Lactic Acid F/U @ 2Hr Calcium AST ALT Alkaline Phosphatase Total Creatine Kinase B-Natriuretic Peptide Total Protein Albumin TSH Ur Specific Morris Urine Protein Urine Glucose (UA) Urine Blood Urine RBC Random Vancomycin 09/06/22 09/06/22 09/06/22 07:14 07:14 07:14 WBC 15.0 H MPV 9.2 L Immature Gran % (Auto) Neut % (Auto) Lymph % (Auto) Lymph # (Auto) Daniels # (Auto) Abs Immat Gran (auto) Absolute Neuts (auto) VBG pH VBG HCO3 Sodium Chloride 95 L Carbon Dioxide 33 H Anion Gap BUN 23 H POC Glucose Random Glucose 227 H Fasting Glucose Lactic Acid Lactic Acid F/U @ 2Hr Calcium AST ALT Alkaline Phosphatase Total Creatine Kinase B-Natriuretic Peptide 320 H Total Protein Albumin TSH Ur Specific Morris Urine Protein Urine Glucose (UA) Urine Blood Urine RBC Random Vancomycin 09/06/22 09/06/22 09/06/22 07:28 11:10 15:27 WBC MPV Immature Gran % (Auto) Neut % (Auto) Lymph % (Auto) Lymph # (Auto) Daniels # (Auto) Abs Immat Gran (auto) Absolute Neuts (auto) VBG pH VBG HCO3 Sodium Chloride Carbon Dioxide Anion Gap BUN POC Glucose 193 H 239 H 286 H Random Glucose Fasting Glucose Lactic Acid Lactic Acid F/U @ 2Hr Calcium AST ALT Alkaline Phosphatase Total Creatine Kinase B-Natriuretic Peptide Total Protein Albumin TSH Ur Specific [place] Urine Protein Urine Glucose (UA) Urine Blood Urine RBC Random Vancomycin 09/06/22 09/07/22 09/07/22 20:04 07:15 10:56 WBC MPV Immature Gran % (Auto) Neut % (Auto) Lymph % (Auto) Lymph # (Auto) Daniels # (Auto) Abs Immat Gran (auto) Absolute Neuts (auto) VBG pH VBG HCO3 Sodium Chloride Carbon Dioxide Anion Gap BUN POC Glucose 279 H 238 H 226 H Random Glucose Fasting Glucose Lactic Acid Lactic Acid F/U @ 2Hr Calcium AST ALT Alkaline Phosphatase Total Creatine Kinase B-Natriuretic Peptide Total Protein Albumin TSH Ur Specific [place] Urine Protein Urine Glucose (UA) Urine Blood Urine RBC Random Vancomycin 09/07/22 11:57 WBC MPV Immature Gran % (Auto) Neut % (Auto) Lymph % (Auto) Lymph # (Auto) Daniels # (Auto) Abs Immat Gran (auto) Absolute Neuts (auto) VBG pH VBG HCO3 Sodium Chloride Carbon Dioxide Anion Gap BUN POC Glucose Random Glucose Fasting Glucose Lactic Acid Lactic Acid F/U @ 2Hr Calcium AST ALT Alkaline Phosphatase Total Creatine Kinase B-Natriuretic Peptide Total Protein Albumin TSH Ur Specific Morris Urine Protein Urine Glucose (UA) Urine Blood Urine RBC Random Vancomycin 8.3 L Microbiology: Microbiology 09/05/22 12:09 Blood - Venous Blood Culture - Preliminary No growth after 24 hours. 09/05/22 12:09 Blood - Venous Blood Culture - Preliminary No growth after 24 hours. 07/27/22 19:52 Blood - Venous Blood Culture - Final No growth after 5 days. 07/27/22 19:54 Blood - Venous Blood Culture - Final No growth after 5 days. 07/27/22 Unknown Urine clean catch - Urine castellanos top Urine Culture - Final Assessment and Plan (1) Acute respiratory failure with hypoxia: Status: Acute (2) Aspiration pneumonia: Status: Acute (3) Asthma exacerbation: Status: Acute Plan This is a frail 77 year woman with a prolonged hospital stay now with an apparent aspiration event complicated by aspiration pneumonia in aspiration pneumonitis and significant bronchospasms. She has a hard time expectorating because of her generalized weakness and is having increased work of breathing with evidence of mild respiratory distress. The patient currently is in a guarded state. Will try to maximize her respiratory therapy hoping not to worsen her cardiac disease. He and Recommendations: Start high-flow CPT Xopenex every 4 hours DuoNeb as needed Increase Solu-Medrol Continue broad-spectrum antibiotics Patient is DNR Time Spent With Patient Time: Total time managing care of this patient today ____ minutes. Procedures Date of Service Date of Service: 09/07/22
--- NOTE | 2022-09-07 13:12 | HE.PHANOTE ---
tiffany mayo patient is currently at 8.3. It was discovered that patient for only 1/2 the dose yesterday (bag was paused) and there was no clarity as to why it was stopped. Provider thinks possible allergy? and patient's daughter thought there was an IV issue. Pt tolerated drug in the past. Will continue current dose and get level tomorrow Tez
[2022-09-07] MEDS: vancomycin HCL 1,250 MG in 0.9 % Sodium Chloride 250 ML 166.67 MG IV (14:55)
[2022-09-07] MEDS: levalbuterol HCL 1.25 MG/3 ML VIAL.NEB INHALE ×2 (15:43→19:53)
[2022-09-07 16:23] LABS: Glucose, Whole Blood 171 mg/dL (60-115)
[2022-09-07] MEDS: methylPREDNISolone Sod Succ 40 MG/ML VIAL 60 MG IVPUSH (17:51)
[2022-09-07 20:45] LABS: Glucose, Whole Blood 183 mg/dL (60-115)
[2022-09-07] MEDS: Atorvastatin Calcium 20 MG TABLET PO (23:15)
[2022-09-08] VITALS (16 sets, daily range): BP systolic 124–160; BP diastolic 69–89; PULSE 89–124; RESP 12–38; TEMP 36–36.8; O2SAT 84–96
[2022-09-08] MEDS: methylPREDNISolone Sod Succ 40 MG/ML VIAL 60 MG IVPUSH ×3 (02:28→16:40)
[2022-09-08] MEDS: levalbuterol HCL 1.25 MG/3 ML VIAL.NEB INHALE ×5 (04:50→19:09)
[2022-09-08 05:34] LABS: Hematocrit 47.6 % (37.0-47.0); Hemoglobin 15.5 g/dl (12.0-16.0); Mean Corpuscular HGB Conc 32.6 g/dl (31.0-35.0); Mean Corpuscular Volume 85.9 fL (80.0-98.0); Mean Platelet Volume 9.3 fL (9.4-12.3); Platelet Count 254 X10*3/uL (160-400); Red Blood Count 5.54 X10*6/uL (4.20-5.50); Red Cell Distribution Width 14.4 % (11.0-16.0)
[2022-09-08] MEDS: Levothyroxine Sodium 112 MCG TABLET PO (05:37)
[2022-09-08] MEDS: Piperacillin Sodium/Tazobactam 4.5 GM in 0.9 % Sodium Chloride 100 ML IV (05:44)
[2022-09-08 05:52] LABS: Anion Gap 23 (12-20); Blood Urea Nitrogen 41 mg/dL (9-16); Calcium 8.7 mg/dL (8.4-10.2); Carbon Dioxide 36 mmol/L (22-29); Chloride 88 mmol/L (96-108); Creatinine Clr Calc Pharmacy 35.2; Estimated Glomerular Filt Rate 46; Glucose Random 346 mg/dL (60-115); Potassium 2.8 mmol/L (3.3-5.1); Sodium 144 mmol/L (135-145)
[2022-09-08 05:57] LABS: B Type Natriuretic Peptide 548 pg/mL (<100)
--- NOTE | 2022-09-08 06:29 | PM.EVENT ---
Event Note Date of Service: 09/08/22 Event Note: Patient with worsening respiratory symptoms, with increased wheezing, respiratory rate, obtained BNP which shows elevation, she also has worsening infiltrates on x-ray given duoneb I will provide 1 dose of morphine Time Spent With Patient Time: Total time managing care of this patient today ____ minutes.
[2022-09-08] MEDS: Morphine Sulfate 4 MG/ML CARTRIDGE IVPUSH ×2 (06:39→21:13)
--- NOTE | 2022-09-08 07:09 | PC.NURSE ---
pt is alert and oriented x3. pt is on high flow nasal cannula with o2 sustaining in the low 90s with respiration rate being 32. pt has a expiratory wheeze, insipratory wheeze and crackles bilaterally. bp was 160/74 manually, heart rate 88. MD notified. MD ordered STAT chest x-ray and duoneb treatment. respiratory asses patient and administer duoneb treatment. At 06:30 MD ordered morphine 4mg ivpush once and metolazone 5mg PO daily.
[2022-09-08 07:21] LABS: Glucose, Whole Blood 309 mg/dL (60-115)
[2022-09-08] MEDS: Insulin Lispro 100 UNIT/ML 3 ML VIAL SUBCUT ×4 (08:05→16:46)
[2022-09-08] MEDS: glipiZIDE 5 MG TABLET PO (08:05)
[2022-09-08] MEDS: metOLazone 5 MG TABLET PO (08:05)
[2022-09-08] MEDS: Metoprolol Tartrate 25 MG TABLET 75 MG PO (08:05)
[2022-09-08] MEDS: Aspirin Enteric Coated 81 MG TABLET.DR PO (08:05)
[2022-09-08] MEDS: Multivitamin TABLET 1 TAB PO (08:05)
[2022-09-08] MEDS: Furosemide 40 MG/4 ML VIAL 60 MG IVPUSH (08:06)
[2022-09-08] MEDS: Apixaban 5 MG TABLET PO (08:06)
[2022-09-08] MEDS: 0.9 % Sodium Chloride Flush 3 ML SYRINGE IVFLUSH ×2 (08:07→15:07)
[2022-09-08] MEDS: Potassium Chloride/H20 10 MEQ/100 ML PIGGYBACK 100 MEQ IV ×6 (09:41→16:38)
[2022-09-08 10:10] LABS: Venous Blood Gas Refer to POC result
[2022-09-08 10:14] LABS: VBG Base Excess 21.4 mmol/L; VBG HCO3 48 mmol/L (22-26); VBG pCO2 57 mmHg; VBG pH 7.53 (7.32-7.43); VBG pO2 61 mmHg
[2022-09-08 11:02] LABS: Glucose, Whole Blood 396 mg/dL (60-115)
[2022-09-08] MEDS: Piperacillin Sodium/Tazobactam 3.375 GM in 0.9 % Sodium Chloride 50 ML IV ×2 (11:13→17:54)
--- NOTE | 2022-09-08 11:34 | HO.PM.IMPN ---
Subjective Subjective Date of Service: 09/08/22 Interval History: Seen and evaluated this morning looks weak and frail, requiring more oxygen supplement on Highflow XR showed fluid overload and infiltrates More lethargic and difficult to arouse no other events Review of Systems Review of Systems: Yes Unobtainable due to mental condition Physical Exam Vital Signs: Vital Signs: Last Vital Signs Temp 96.8 F 09/08/22 07:06 Pulse 100 09/08/22 07:06 Resp 24 H 09/08/22 11:07 BP 134/69 09/08/22 07:06 Pulse Ox 86 L 09/08/22 07:06 O2 Del Method High Flow Nasal C annula 09/08/22 07:06 O2 Flow Rate 30 09/08/22 07:06 FiO2 100 09/08/22 07:06 BMI result Body Mass Index 29.6 Const: Other: Constitutional : Awake with stimulation, in significant resp distress Neck : Normal inspection, Supple Cardiovascular : irregular irregular, no lower extremity edema Respiratory : not in distress, chest wall moving bilaterally, decrease air movement at bases, right sided ML crackles. tachypneic. on Highflow O2 Skin : Warm, Dry Neurological : Alert with stimulation , confused, No focal deficit Objective Data Active Medications Acetaminophen (Acetaminophen 325 Mg Tablet) 650 mg PO Q6H PRN PRN Reason: Pain, Mild (Pain Scale 1-3) Last Admin: 09/02/22 15:05 Dose: 650 mg Documented By: REGINALD Albuterol/Ipratropium (Albuterol/Iprat 2.5/0.5mg 3 Ml Ampul.Neb) 3 ml INHALE Q4H PRN PRN Reason: Wheezing Last Admin: 09/07/22 01:04 Dose: 3 ml Documented By: LINDA Apixaban (Apixaban 5 Mg Tablet) 5 mg PO BID [facility] Last Admin: 09/08/22 08:06 Dose: 5 mg Documented By: YASMINE Aspirin (Aspirin Enteric Coated 81 Mg Tablet.) 81 mg PO DAILY [facility] Last Admin: 09/08/22 08:05 Dose: 81 mg Documented By: YASMINE Atorvastatin Calcium (Atorvastatin Calcium 20 Mg Tablet) 20 mg PO BEDTIME [facility] Last Admin: 09/07/22 23:15 Dose: 20 mg Documented By: ANNIE Docusate Sodium (Docusate Sodium 100 Mg Capsule) 100 mg PO DAILY PRN PRN Reason: Constipation Last Admin: 09/03/22 08:24 Dose: 100 mg Documented By: REGINALD Furosemide (Furosemide 40 Mg/4 Ml Vial) 60 mg IVPUSH BID@0900,1800 [facility]; Protocol Last Admin: 09/08/22 08:06 Dose: 60 mg Documented By: YASMINE Glipizide (Glipizide 5 Mg Tablet) 5 mg PO DAILY [facility] Last Admin: 09/08/22 08:05 Dose: 5 mg Documented By: YASMINE Glucose (Glucose Gel 15 Gm Gel..Gram.) 15 gm PO Q15M PRN; Protocol PRN Reason: per Hypoglycemia Standing Ord. Last Admin: 09/01/22 08:59 Dose: 15 gm Documented By: [place] Vancomycin HCl 1,250 mg/ (Sodium Chloride) 250 mls @ 166.667 mls/hr IV Q24H [facility] Last Infusion: 09/07/22 16:55 Dose: 0 mls/hr Documented By: REGINALD Piperacillin Sod/Tazobactam (Sod 3.375 gm/ Sodium Chloride) 50 mls @ 100 mls/hr IV Q6H [facility] Last Admin: 09/08/22 11:13 Dose: 100 mls/hr Documented By: YASMINE Insulin Glargine (Insulin Glargine,Hum.Rec.Anlog 100 Unit/Ml 10 Ml Vial) 10 unit SUBCUT DAILY [facility] Insulin Human Lispro (Insulin Lispro 100 Unit/Ml 3 Ml Vial) 0 unit SUBCUT QIDACHS [facility]; Protocol Last Admin: 09/08/22 11:08 Dose: 10 unit Documented By: YASMINE Levalbuterol HCl (Levalbuterol Hcl 1.25 Mg/3 Ml Vial.Neb) 1.25 mg INHALE RQ4H WHILE AWAKE [facility] Last Admin: 09/08/22 11:05 Dose: 1.25 mg Documented By: AMINA Levothyroxine Sodium (Levothyroxine Sodium 112 Mcg Tablet) 112 mcg PO DAILY@0600 [facility] Last Admin: 09/08/22 05:37 Dose: 112 mcg Documented By: ANNIE Metformin HCl (Metformin Hcl 850 Mg Tablet) 850 mg PO BIDWM [facility] Last Admin: 09/07/22 18:05 Dose: Not Given Documented By: REGINALD Non-Admin Reason: Patient Refused Methylprednisolone Sodium Succinate (Methylprednisolone Sod Succ 40 Mg/Ml Vial) 60 mg IVPUSH Q8H [facility] Last Admin: 09/08/22 08:08 Dose: 60 mg Documented By: YASMINE Metoprolol Tartrate (Metoprolol Tartrate 25 Mg Tablet) 75 mg PO BID [facility]; Protocol Last Admin: 09/08/22 08:05 Dose: 75 mg Documented By: YASMINE Multivitamins/Vitamin C (Multivitamin Tablet) 1 tab PO DAILY [facility] Last Admin: 09/08/22 08:05 Dose: 1 tab Documented By: YASMINE Nystatin (Nystatin Powder 15 Gm Bottle) 1 appl TOPICAL BID [facility]; Protocol Last Admin: 09/08/22 11:32 Dose: Not Given Documented By: YASMINE Non-Admin Reason: Med Not Available Ondansetron HCl (Ondansetron Hcl 4 Mg/2 Ml Vial) 4 mg IVPUSH Q8H PRN PRN Reason: Nausea and Vomiting Pharmacy Consult (Consult Rx Vancomycin Dosing) 1 each MISCELLANE DAILY PRN PRN Reason: Consult order Sodium Chloride (0.9 % Sodium Chloride Flush 3 Ml Syringe) 3 ml IVFLUSH QSHIFT [facility] Last Admin: 09/08/22 08:07 Dose: 3 ml Documented By: YASMINE Labs 09/08/22 05:04 09/08/22 05:04 Labs: Laboratory Results - last 24 hr 09/07/22 09/07/22 09/07/22 11:57 16:06 20:40 MCV MCH MCHC RDW Plt Count MPV Absolute Nucleated RBC Nucleated RBC % (auto) VBG pH VBG pCO2 VBG pO2 VBG HCO3 VBG O2 Saturation VBG Base Excess Anion Gap Estim Creat Clear Calc Estimated GFR POC Glucose 171 H 183 H Random Glucose Calcium B-Natriuretic Peptide Random Vancomycin 8.3 L 09/08/22 09/08/22 09/08/22 05:04 05:04 05:04 MCV 85.9 MCH 28.0 MCHC 32.6 RDW 14.4 Plt Count 254 MPV 9.3 L Absolute Nucleated RBC 0.000 Nucleated RBC % (auto) 0.0 VBG pH VBG pCO2 VBG pO2 VBG HCO3 VBG O2 Saturation VBG Base Excess Anion Gap 23 H Estim Creat Clear Calc Cancelled 35.2 Estimated GFR Cancelled 46 POC Glucose Random Glucose 346 H Calcium 8.7 B-Natriuretic Peptide Random Vancomycin 09/08/22 09/08/22 09/08/22 05:04 07:04 10:06 MCV MCH MCHC RDW Plt Count MPV Absolute Nucleated RBC Nucleated RBC % (auto) VBG pH 7.53 H VBG pCO2 57 VBG pO2 61 VBG HCO3 48 H VBG O2 Saturation 89.0 VBG Base Excess 21.4 Anion Gap Estim Creat Clear Calc Estimated GFR POC Glucose 309 H Random Glucose Calcium B-Natriuretic Peptide 548 H Random Vancomycin 09/08/22 10:57 MCV MCH MCHC RDW Plt Count MPV Absolute Nucleated RBC Nucleated RBC % (auto) VBG pH VBG pCO2 VBG pO2 VBG HCO3 VBG O2 Saturation VBG Base Excess Anion Gap Estim Creat Clear Calc Estimated GFR POC Glucose 396 H* Random Glucose Calcium B-Natriuretic Peptide Random Vancomycin Microbiology Microbiology Results: Microbiology 09/05/22 12:09 Blood Culture - Preliminary Blood - Venous No growth after 48 hours. 09/05/22 12:09 Blood Culture - Preliminary Blood - Venous No growth after 48 hours. Assessment and Plan (1) Pulmonary edema: Status: Acute (2) Aspiration pneumonia: Status: Acute (3) Acute respiratory failure with hypoxia: Status: Acute (4) Atrial fibrillation with RVR: Status: Acute Plan 77-year-old female with hypothyroidism, [id number] type 2 diabetes, hypertension, hyperlipidemia, paroxysmal atrial fibrillation anticoagulated with Eliquis, history of invasive ductal carcinoma of the breast, and history of uterine cancer presentd with mechanical fall, afib with rvr Acute hypoxic respiratory failure 2/2 acute diastolic CHF exacerbation and aspiration pneumonia\pneumonitis repeated CXR showing mildly improved bilateral effusions but worsened bilateral infiltrates change to IV Bumex drip Give Albumin increased dose of Steroids Continue broad spectrum Abx pending cardiolgoy eval Critical care consult, not a candidate for BiPAP monitor I\O wean O2 down as tolerated Sepsis 2/2 Aspiration pneumonitis\pneumonia negative cultures IV steroids and Abx pulm input appreciated chest PT [employer] eval, modified diet paroxysmal afib with rvr, resolved severe on echo Continue eliquis, metoprolol to 75 bid with better rate control Hypotension, resolved enapril on hold likely 2/2 dehydration, meds?, possible infection improved with Albumin, IVF boluses lack Capacity 2/2 cognitive impairment evaluated by psych on admission, has no capacity to sign AMA or take medical decisions at this point, HCP invoked pending safe discharge plan seen by psych again 08/30/22 to eval capacity to change HCP, does not appear to have capacity for that decision as well. DM with hyperglycemia and hypoglycemia insulin, glargine disconitnued hypothryoid synthroid hld statin history of breast and uterine cancer outpatient oncology follow up dvt prophylaxis Eliquis Code status discussed with HCP, daughter Dori who does not want her mother to suffer and wants her to be comfortable. explained the change in status and possible need for ICU admission, intubation. HCP does not want her mother to have CPR or intubation. she is ok with trials of pressors if needed but would change her status to comfort measures if she fails to improve. dr Fabiola marieness the phonecall. MOLST form filled and signed. code status changed to DNR\DNI. 09/08/2022. I discussed with HCP Dori the change in status and increase O2 supplement on highflow with overall deterioration in her physical and mental condition. she wants to continue treatment with IV Abx, diuretics for now and keep her as DNR\DNI. reason for continued hospitalization: safe dispo Time Spent With Patient Time: Total time managing care of this patient today ____ minutes. Quality Stroke Does the patient have a stroke diagnosis?: No VTE Prior VTE?: No VTE Risk Level:: Medical - moderate - high VTE Device Contraindication: Treatment Not Indicated VTE Drug Contraindication: N/A - Med Ordered
[2022-09-08] MEDS: Potassium Chloride ER 20 MEQ TAB.ER.PRT 40 MEQ PO (11:36)
[2022-09-08] MEDS: Insulin Glargine,Hum.rec.anlog 100 UNIT/ML 10 ML VIAL 10 UNIT SUBCUT (11:36)
--- NOTE | 2022-09-08 11:48 | PM.CCHP ---
History of Present Illness Date of Service: 09/08/22 Chief Complaint: Hypoxia, congestive heart failure, pulmonary edema 77-year-old lady with underlying AFib, diabetes mellitus, diastolic congestive heart failure hospitalized for 42 days, initially for unwitnessed fall, remains in the hospital secondary to no safe discharge option. Over the last week with exacerbation of underlying heart failure and pulmonary edema now with worsening hypoxemia requiring high-flow nasal cannula. Patient currently in DNR/DNI code status. Review of Systems Review of Systems: Yes Unobtainable due to mental condition Neurologic: Reports confusion Psychiatric: Psychiatric: Reports confusion [facility] Past Medical History Medical History Asymptomatic bacteriuria Atrial fibrillation Chronic anticoagulation History of uterine cancer HLD (hyperlipidemia) HTN (hypertension) Hypothyroidism Invasive ductal carcinoma of left breast Type 2 diabetes mellitus Surgical History Surgical History History of hysterectomy for cancer History of knee surgery History of lumpectomy of right breast (05/25/17) History of right breast biopsy Social History Social History Household Members: None Housing: House Do you presently have visiting nurse or other home services: No Alcohol intake: never Patient Tobacco Use Status: Never used Tobacco Use of substances other than those prescribed or required for medical reasons: No Currently Displaying Signs/Symptoms of Drug Intoxication Withdrawal: No Have you been hit, kicked, punched, or otherwise hurt by someone within the past year? If so, by whom?: No Do you feel safe in your current relationship?: No Current Relationship Is there a partner from a previous relationship who is making you feel unsafe now?: No Are you made to feel afraid or neglected: No Advance Directives: No Advance Directives Information Provided: No Do you have thoughts of harming others: None Recently lost weight without trying: No How much weight loss: Not applicable Eating poorly because of decreased appetite: No Nutrition screen score: 0 Patient : No Poor oral hygiene: No service: No Current occupational status: retired Meds Allergies Allergy/AdvReac Type Severity Reaction Status Date / Time No Known Allergies Allergy Unverified 12/23/19 15:40 [No Known Allergies*] Active Medications: Current Medications Acetaminophen (Acetaminophen 325 Mg Tablet) 650 mg PO Q6H PRN PRN Reason: Pain, Mild (Pain Scale 1-3) Last Admin: 09/02/22 15:05 Dose: 650 mg Albuterol/Ipratropium (Albuterol/Iprat 2.5/0.5mg 3 Ml Ampul.Neb) 3 ml INHALE Q4H PRN PRN Reason: Wheezing Last Admin: 09/07/22 01:04 Dose: 3 ml Apixaban (Apixaban 5 Mg Tablet) 5 mg PO BID [facility] Last Admin: 09/08/22 08:06 Dose: 5 mg Aspirin (Aspirin Enteric Coated 81 Mg Tablet.Dr) 81 mg PO DAILY [facility] Last Admin: 09/08/22 08:05 Dose: 81 mg Atorvastatin Calcium (Atorvastatin Calcium 20 Mg Tablet) 20 mg PO BEDTIME [facility] Last Admin: 09/07/22 23:15 Dose: 20 mg Docusate Sodium (Docusate Sodium 100 Mg Capsule) 100 mg PO DAILY PRN PRN Reason: Constipation Last Admin: 09/03/22 08:24 Dose: 100 mg Glipizide (Glipizide 5 Mg Tablet) 5 mg PO DAILY [facility] Last Admin: 09/08/22 08:05 Dose: 5 mg Glucose (Glucose Gel 15 Gm Gel..Gram.) 15 gm PO Q15M PRN; Protocol PRN Reason: per Hypoglycemia Standing Ord. Last Admin: 09/01/22 08:59 Dose: 15 gm Vancomycin HCl 1,250 mg/ (Sodium Chloride) 250 mls @ 166.667 mls/hr IV Q24H [facility] Last Infusion: 09/07/22 16:55 Dose: Infused Piperacillin Sod/Tazobactam (Sod 3.375 gm/ Sodium Chloride) 50 mls @ 100 mls/hr IV Q6H [facility] Last Infusion: 09/08/22 11:48 Dose: Infused Potassium Chloride (Potassium Chloride/H20) 10 meq in 100 mls @ 100 mls/hr IV Q1H [facility] Stop: 09/08/22 15:44 Bumetanide 25 mg/ IV (Miscellaneous Supplies) 100 mls @ 2 mls/hr IVCONT .Q24H [facility] Albumin Human (Kedbumin 25 %) 100 mls @ 100 mls/hr IV Q6H [facility] Stop: 09/09/22 06:44 Insulin Glargine (Insulin Glargine,Hum.Rec.Anlog 100 Unit/Ml 10 Ml Vial) 10 unit SUBCUT DAILY [facility] Last Admin: 09/08/22 11:36 Dose: 10 unit Insulin Human Lispro (Insulin Lispro 100 Unit/Ml 3 Ml Vial) 0 unit SUBCUT QIDACHS [facility]; Protocol Last Admin: 09/08/22 11:08 Dose: 10 unit Levalbuterol HCl (Levalbuterol Hcl 1.25 Mg/3 Ml Vial.Neb) 1.25 mg INHALE RQ4H WHILE AWAKE [facility] Last Admin: 09/08/22 11:05 Dose: 1.25 mg Levothyroxine Sodium (Levothyroxine Sodium 112 Mcg Tablet) 112 mcg PO DAILY@0600 [facility] Last Admin: 09/08/22 05:37 Dose: 112 mcg Metformin HCl (Metformin Hcl 850 Mg Tablet) 850 mg PO BIDWM [facility] Last Admin: 09/07/22 18:05 Dose: Not Given Methylprednisolone Sodium Succinate (Methylprednisolone Sod Succ 40 Mg/Ml Vial) 60 mg IVPUSH Q8H [facility] Last Admin: 09/08/22 08:08 Dose: 60 mg Metoprolol Tartrate (Metoprolol Tartrate 25 Mg Tablet) 75 mg PO BID [facility]; Protocol Last Admin: 09/08/22 08:05 Dose: 75 mg Multivitamins/Vitamin C (Multivitamin Tablet) 1 tab PO DAILY [facility] Last Admin: 09/08/22 08:05 Dose: 1 tab Nystatin (Nystatin Powder 15 Gm Bottle) 1 appl TOPICAL BID [facility]; Protocol Last Admin: 09/08/22 11:32 Dose: Not Given Ondansetron HCl (Ondansetron Hcl 4 Mg/2 Ml Vial) 4 mg IVPUSH Q8H PRN PRN Reason: Nausea and Vomiting Pharmacy Consult (Consult Rx Vancomycin Dosing) 1 each MISCELLANE DAILY PRN PRN Reason: Consult order Sodium Chloride (0.9 % Sodium Chloride Flush 3 Ml Syringe) 3 ml IVFLUSH QSHIFT [facility] Last Admin: 09/08/22 08:07 Dose: 3 ml Home Medications Medication Instructions Recorded Confirmed Last Taken Type aspirin 81 mg tablet,delayed 81 mg PO DAILY 05/05/20 07/28/22 2 Days Ago History release ~07/26/22 atorvastatin 20 mg tablet 20 mg PO BEDTIME 05/05/20 07/28/22 2 Days Ago History ~07/26/22 blood sugar diagnostic #10 ea 05/05/20 07/28/22 Unknown History enalapril maleate 20 mg tablet 20 mg PO DAILY 05/05/20 07/28/22 2 Days Ago History ~07/26/22 levothyroxine 112 mcg tablet 112 mcg PO DAILY@0600 05/05/20 07/28/22 2 Days Ago History ~07/26/22 multivitamin 1 tab PO DAILY 05/05/20 07/28/22 2 Days Ago History ~07/26/22 apixaban 5 mg tablet (Eliquis) 5 mg PO BID 07/21/22 07/28/22 2 Days Ago History ~07/26/22 ceramides 1,3,6-II (CeraVe topical 1 appl topical NEEDED PRN Dry 07/28/22 07/28/22 Unknown History cream) Skin glipizide 10 mg tablet 10 mg PO DAILY 07/28/22 07/28/22 2 Days Ago History ~07/26/22 Physical Exam Vital Signs: Vital Signs: Last Vital Signs Temp 96.8 F 09/08/22 07:06 Pulse 100 09/08/22 07:06 Resp 24 H 09/08/22 11:07 BP 134/69 09/08/22 07:06 Pulse Ox 86 L 09/08/22 07:06 O2 Del Method High Flow Nasal C annula 09/08/22 07:06 O2 Flow Rate 30 09/08/22 07:06 FiO2 100 09/08/22 07:06 BMI result Body Mass Index 29.6 Const: General: no acute distress, confusion and other (Anasarca) Orientation/consciousness: confusion Eyes: Sclerae: sclerae normal EOM: EOMs intact bilaterally Neck: Neck: Yes no lymphadenopathy, Yes trachea midline and Yes supple Resp: Effort & Inspection: normal respiratory effort (On high-flow nasal cannula) and no respiratory distress Auscultation: crackles (Diffuse bilateral) Cardio: Rate: tachycardic Rhythm: abnormal rhythm irregularly irregular Heart sounds: no gallops, no murmurs and no rubs GI: Palpation (GI): Soft to palpation and Other GI palpation findings present ( Nontender) Auscultation: normal bowel sounds Neuro: General: confusion Extrem: General: No clubbing, No cyanosis and Yes edema (3+ bilateral) Results Labs 09/08/22 05:04 09/08/22 05:04 Labs: Laboratory Results - last 24 hr 09/07/22 09/07/22 09/07/22 11:57 16:06 20:40 MCV MCH MCHC RDW Plt Count MPV Absolute Nucleated RBC Nucleated RBC % (auto) VBG pH VBG pCO2 VBG pO2 VBG HCO3 VBG O2 Saturation VBG Base Excess Anion Gap Estim Creat Clear Calc Estimated GFR POC Glucose 171 H 183 H Random Glucose Calcium B-Natriuretic Peptide Random Vancomycin 8.3 L 09/08/22 09/08/22 09/08/22 05:04 05:04 05:04 MCV 85.9 MCH 28.0 MCHC 32.6 RDW 14.4 Plt Count 254 MPV 9.3 L Absolute Nucleated RBC 0.000 Nucleated RBC % (auto) 0.0 VBG pH VBG pCO2 VBG pO2 VBG HCO3 VBG O2 Saturation VBG Base Excess Anion Gap 23 H Estim Creat Clear Calc Cancelled 35.2 Estimated GFR Cancelled 46 POC Glucose Random Glucose 346 H Calcium 8.7 B-Natriuretic Peptide Random Vancomycin 09/08/22 09/08/22 09/08/22 05:04 07:04 10:06 MCV MCH MCHC RDW Plt Count MPV Absolute Nucleated RBC Nucleated RBC % (auto) VBG pH 7.53 H VBG pCO2 57 VBG pO2 61 VBG HCO3 48 H VBG O2 Saturation 89.0 VBG Base Excess 21.4 Anion Gap Estim Creat Clear Calc Estimated GFR POC Glucose 309 H Random Glucose Calcium B-Natriuretic Peptide 548 H Random Vancomycin 09/08/22 10:57 MCV MCH MCHC RDW Plt Count MPV Absolute Nucleated RBC Nucleated RBC % (auto) VBG pH VBG pCO2 VBG pO2 VBG HCO3 VBG O2 Saturation VBG Base Excess Anion Gap Estim Creat Clear Calc Estimated GFR POC Glucose 396 H* Random Glucose Calcium B-Natriuretic Peptide Random Vancomycin Imaging Radiologist's Impressions: Impressions Chest X-Ray 09/08/22 05:47 IMPRESSION: Redemonstrated extensive heterogeneous opacities throughout both lungs, with interval worsening in the left perihilar region. Persistent small to moderate right and small left pleural effusions. Assessment and Plan (1) Pulmonary edema: Status: Acute (2) Acute respiratory failure with hypoxia: Status: Acute (3) Atrial fibrillation with RVR: Status: Acute (4) CHF (congestive heart failure): Status: Acute Plan Impression: 77-year-old lady in DNR/DNI status with history of underlying cognitive impairment, AFib, diabetes mellitus, now an acute exacerbation of congestive heart failure with significant pulmonary edema and hypoxemia, no hypercapnia. Maintaining O2 saturation in mid 90s on high-flow nasal cannula and with significant anasarca. Patient does not require BiPAP support as there is no hypercapnia. CPAP support can be considered but I would advise against it secondary to her underlying cognitive impairment, intermittent lethargy, and significant risk of aspiration. Recommendations: Consider switching Lasix drip to Bumex drip 1mg/hr. Consider albumin supplementation for improving oncotic pressure q6h x4. Consider discontinuation of beta-blockers in acute decompensated heart failure. Consider AFib rate control with amiodarone. Patient with significant hypokalemia and at this time would benefit from at least 150 mEq of potassium, particularly considering ongoing diuresis efforts. Time Spent With Patient Time: Total time managing care of this patient today ____ minutes.
--- NOTE | 2022-09-08 12:32 | HE.PHANOTE ---
RE: vanco Trough on 09/08 came back at 13.0; however SCr did jump up a little. Decreased dose to 1000mg Q24H with predicted AUC of 422mg/L and trough of 12.4mg/L. Next level to be drawn after two doses 09/10 @1200. Will continue to monitor renal and adjust accordingly
[2022-09-08] MEDS: Albumin Human 25 % 100 ML IV ×2 (12:39→16:43)
[2022-09-08] MEDS: Bumetanide 25 MG in Container,Empty 0 ML IVCONT (13:54)
[2022-09-08] MEDS: vancomycin HCL 1,000 MG in 0.9 % Sodium Chloride 250 ML 270 MG IV (13:55)
[2022-09-08 16:29] LABS: Glucose, Whole Blood 305 mg/dL (60-115)
[2022-09-08] MEDS: Morphine Sulfate 2 MG/ML CARTRIDGE IVPUSH ×2 (16:41→18:48)
[2022-09-08 20:58] LABS: Glucose, Whole Blood 234 mg/dL (60-115)
[2022-09-08] MEDS: Metoprolol Tartrate 5 MG/5 ML VIAL IVPUSH (21:05)
[2022-09-09 00:40] LABS: Anion Gap 20 (12-20); Blood Urea Nitrogen 47 mg/dL (9-16); Calcium 9.6 mg/dL (8.4-10.2); Carbon Dioxide 41 mmol/L (22-29); Chloride 86 mmol/L (96-108); Creatinine Clr Calc Pharmacy 31.4; Estimated Glomerular Filt Rate 40; Glucose Random 253 mg/dL (60-115); Potassium 2.7 mmol/L (3.3-5.1); Sodium 144 mmol/L (135-145)
[2022-09-09 00:48] VITALS: PULSE 119; RESP 23; O2SAT 92
[2022-09-09] MEDS: Albumin Human 25 % 100 ML IV ×2 (01:26→08:03)
[2022-09-09] MEDS: Piperacillin Sodium/Tazobactam 3.375 GM in 0.9 % Sodium Chloride 50 ML IV ×2 (01:27→08:03)
[2022-09-09] MEDS: methylPREDNISolone Sod Succ 40 MG/ML VIAL 60 MG IVPUSH (01:28)
[2022-09-09] MEDS: 0.9 % Sodium Chloride Flush 3 ML SYRINGE IVFLUSH ×2 (01:28→08:18)
[2022-09-09 03:02] VITALS: RESP 36
[2022-09-09] MEDS: Morphine Sulfate 2 MG/ML CARTRIDGE IVPUSH ×4 (03:02→14:12)
[2022-09-09 04:00] VITALS: BP 133/95; PULSE 24; RESP 24; TEMP 36.4; O2SAT 94
--- NOTE | 2022-09-09 05:05 | PM.EVENT ---
Event Note Date of Service: 09/09/22 Event Note: Patient has been tachycardic on and off throughout the night, with increased work of breathing. Given 1 dose of extra 4 mg of IV morphine was slight improvement in her respiratory effort, patient also received 2 doses of IV metoprolol as she does not tolerate p.o.. I spoke to her healthcare proxy earlier in the evening who was at bedside. At this time she wants to continue current management Time Spent With Patient Time: Total time managing care of this patient today ____ minutes.
[2022-09-09] MEDS: Metoprolol Tartrate 5 MG/5 ML VIAL IVPUSH (05:06)
[2022-09-09 06:40] LABS: Hemoglobin 14.3 g/dl (12.0-16.0); Mean Corpuscular HGB Conc 32.5 g/dl (31.0-35.0); Mean Corpuscular Hemoglobin 29.3 pg (27.0-33.0); Mean Corpuscular Volume 90.2 fL (80.0-98.0); Mean Platelet Volume 9.7 fL (9.4-12.3); Platelet Count 230 X10*3/uL (160-400); Red Blood Count 4.88 X10*6/uL (4.20-5.50); Red Cell Distribution Width 14.6 % (11.0-16.0)
[2022-09-09 06:53] LABS: WBC ABN SCTR FOR CBC 1
[2022-09-09 07:19] LABS: Anion Gap 20 (12-20); Blood Urea Nitrogen 58 mg/dL (9-16); Calcium 9.5 mg/dL (8.4-10.2); Carbon Dioxide 43 mmol/L (22-29); Chloride 88 mmol/L (96-108); Creatinine Clr Calc Pharmacy 28.1; Estimated Glomerular Filt Rate 35; Glucose Random 212 mg/dL (60-115); Potassium 2.9 mmol/L (3.3-5.1); Sodium 148 mmol/L (135-145)
--- NOTE | 2022-09-09 07:36 | HE.PHANOTE ---
Re: maria esther SCr today has increased to 1.43 from 1.14 yesterday. She didn't get full dose on 09/06 (unknown as to why). Still expecting AUC of 444 after 5th dose and trough of 13.7. Closely monitor renal function for her. Next trough 09/10 @1200.
[2022-09-09 07:47] VITALS: BP 127/68; PULSE 133; RESP 22; TEMP 36.1; O2SAT 92
[2022-09-09 07:52] LABS: B Type Natriuretic Peptide 1137 pg/mL (<100)
[2022-09-09 07:54] LABS: White Blood Count 29.8 X10*3/uL (4.8-10.8)
[2022-09-09 07:59] LABS: Glucose, Whole Blood 217 mg/dL (60-115)
--- NOTE | 2022-09-09 08:10 | PC.NURSE ---
Pt at start of shift found to be in resp distress with 100% of 55L HFN/C with NRB over. she was not yet due for next morphine dose and had significant accessory muscle use. MD matthews aware and down to see patient. Discussed plan with Daughter at bedside and she confirms pt is DNR/DNI and would not tolerate bipap. she is lethargic and at times pulls at her tubes and lines. She had additional morphine as noted in JUN, pt unable to tolerate po due to lethargy and resp distress so PO meds and SSI held. Metoprolol changed to IVP for Afib with RVR then repeated later in shift. after interventions pt appeared comfortable. Grahn visitation allowed. made immediately aware of critical lab as noted.
[2022-09-09] MEDS: Potassium Chloride/H20 10 MEQ/100 ML PIGGYBACK 100 MEQ IV (08:16)
[2022-09-09] MEDS: Nystatin Powder 15 GM BOTTLE 1 APPL TOPICAL (08:21)
[2022-09-09] MEDS: levalbuterol HCL 1.25 MG/3 ML VIAL.NEB INHALE (08:32)
[2022-09-09 08:33] VITALS: PULSE 135; RESP 29; O2SAT 91
--- NOTE | 2022-09-09 09:47 | HO.PM.IMPN ---
Subjective Subjective Date of Service: 09/09/22 Interval History: Seen and evaluated this morning requiring more oxygen supplement on Highflow and NRB with O2 sat up to 90 XR showed fluid overload and infiltrates which are worsening Not making much of urine while on Bumex drip, Cr increasing More lethargic and difficult to arouse HCP at bedside, wants to proceed with [employer] care no other events Review of Systems Review of Systems: Yes Unobtainable due to mental status Physical Exam Vital Signs: Vital Signs: Last Vital Signs Temp 96.9 F 09/09/22 07:47 Pulse 135 H 09/09/22 08:33 Resp 29 H 09/09/22 08:33 BP 127/68 09/09/22 07:47 Pulse Ox 92 09/09/22 07:47 O2 Del Method High Flow Nasal C annula, Non-Rebrea ther Mask 09/09/22 07:47 O2 Flow Rate 55 09/09/22 07:47 FiO2 100 09/09/22 07:47 BMI result Body Mass Index 29.6 Const: Other: Constitutional : altered, in significant resp distress Neck : Normal inspection, Supple Cardiovascular : irregular irregular, no lower extremity edema Respiratory : not in distress, chest wall moving bilaterally, decrease air movement at bases, right sided ML crackles. tachypneic. on Highflow O2 and NRB, in resp distress Skin : Warm, Dry Neurological : altered mentation , confused, No focal deficit Objective Data Active Medications Albuterol/Ipratropium (Albuterol/Iprat 2.5/0.5mg 3 Ml Ampul.Neb) 3 ml INHALE Q4H PRN PRN Reason: Wheezing Last Admin: 09/07/22 01:04 Dose: 3 ml Documented By: LINDA Lorazepam (Lorazepam 2 Mg/Ml Vial) 1 mg IVPUSH Q4H PRN PRN Reason: anxiety/restlessness Morphine Sulfate (Morphine Sulfate 2 Mg/Ml Cartridge) 2 mg IVPUSH Q1H PRN; Protocol PRN Reason: Dyspnea Nystatin (Nystatin Powder 15 Gm Bottle) 1 appl TOPICAL BID [facility]; Protocol Last Admin: 09/09/22 08:21 Dose: 1 appl Documented By: ELÍAS Ondansetron HCl (Ondansetron Hcl 4 Mg/2 Ml Vial) 4 mg IVPUSH Q8H PRN PRN Reason: Nausea and Vomiting Scopolamine (Scopolamine 1.5 Mg Patch.Td.3) 1.5 mg EAR-BEHIND Q72H [facility] Sodium Chloride (0.9 % Sodium Chloride Flush 3 Ml Syringe) 3 ml IVFLUSH QSHIFT ANTONIO Last Admin: 09/09/22 08:18 Dose: 3 ml Documented By: ELÍAS Labs 09/09/22 06:31 09/09/22 06:31 Labs: Laboratory Results - last 24 hr 09/08/22 09/08/22 09/08/22 10:06 10:57 12:01 MCV MCH MCHC RDW Plt Count MPV Absolute Nucleated RBC Nucleated RBC % (auto) VBG pH 7.53 H VBG pCO2 57 VBG pO2 61 VBG HCO3 48 H VBG O2 Saturation 89.0 VBG Base Excess 21.4 Anion Gap Estim Creat Clear Calc Estimated GFR POC Glucose 396 H* Random Glucose Calcium B-Natriuretic Peptide Random Vancomycin 13.0 L 09/08/22 09/08/22 09/08/22 15:28 20:01 20:53 MCV MCH MCHC RDW Plt Count MPV Absolute Nucleated RBC Nucleated RBC % (auto) VBG pH VBG pCO2 VBG pO2 VBG HCO3 VBG O2 Saturation VBG Base Excess Anion Gap 20 Estim Creat Clear Calc 31.4 Estimated GFR 40 POC Glucose 305 H 234 H Random Glucose 253 H Calcium 9.6 D B-Natriuretic Peptide Random Vancomycin 09/09/22 09/09/22 09/09/22 06:31 06:31 07:04 MCV 90.2 MCH 29.3 MCHC 32.5 RDW 14.6 Plt Count 230 MPV 9.7 Absolute Nucleated RBC 0.000 Nucleated RBC % (auto) 0.0 VBG pH VBG pCO2 VBG pO2 VBG HCO3 VBG O2 Saturation VBG Base Excess Anion Gap 20 Estim Creat Clear Calc 28.1 Estimated GFR 35 POC Glucose Random Glucose 212 H Calcium 9.5 B-Natriuretic Peptide 1137 H Random Vancomycin 09/09/22 07:50 MCV MCH MCHC RDW Plt Count MPV Absolute Nucleated RBC Nucleated RBC % (auto) VBG pH VBG pCO2 VBG pO2 VBG HCO3 VBG O2 Saturation VBG Base Excess Anion Gap Estim Creat Clear Calc Estimated GFR POC Glucose 217 H Random Glucose Calcium B-Natriuretic Peptide Random Vancomycin Assessment and Plan (1) Acute respiratory failure with hypoxia: Status: Acute (2) Aspiration pneumonia: Status: Acute (3) Atrial fibrillation with RVR: Status: Acute Plan 77-year-old female with hypothyroidism, [id number] type 2 diabetes, hypertension, hyperlipidemia, paroxysmal atrial fibrillation anticoagulated with Eliquis, history of invasive ductal carcinoma of the breast, and history of uterine cancer presentd with mechanical fall, afib with rvr Acute hypoxic respiratory failure 2/2 acute diastolic CHF exacerbation and aspiration pneumonia\pneumonitis Worsening physically and mentally with increase O2 requirment, worseing respiratory status and CXR, decrease urine output, worsening kidney function with AFib rvr, unable to tolerate PO and altered mentation while on IV Abx and IV bumex drip. Discussed with HCP at bedside who wants to proceed with [employer] care. DC vitals, Tele DC Abx, steroids, Bumex and oral meds Morphine PRN for dyspnea Ativan PRN restlessness Scopalamine for secretions reason for continued hospitalization: comfort measures needs high O2 supplement and IV medications, can not be provided at any less acute care center. Time Spent With Patient Time: Total time managing care of this patient today ____ minutes. Quality Stroke Does the patient have a stroke diagnosis?: No VTE Prior VTE?: No VTE Risk Level:: Medical - moderate - high VTE Device Contraindication: Treatment Not Indicated VTE Drug Contraindication: N/A - Med Ordered
[2022-09-09] MEDS: Scopolamine 1.5 MG PATCH.TD.3 EAR-BEHIND (10:41)
--- NOTE | 2022-09-09 10:52 | MHC.CM.PN ---
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 HCP/daughter Dori at bedside.
[2022-09-09 12:00] VITALS: RESP 22
--- NOTE | 2022-09-09 15:40 | MHC.SLORD ---
Speech Language Pathology Order Status: Per MD, pt now LE[employer] ARCHITECT and [employer]ER f/u is no longer needed. ST to be d/c'ed at this time, please re-refer if there are any changes or if [employer] can be of further assistance. Per MD, diet to be downgraded to PUREE (NDD1).
--- NOTE | 2022-09-09 16:43 | PM.DS ---
DS: Providers Provider Date of Service: 09/09/22 Date of admission: 07/28/22 12:49 Primary care physician: Oral Beasley MD Consults: 07/28/22 01:01 Consult to Cardiology Routine Consulting Provider: [facility] [place] [facility] [place] [facility] Reason for consultation: afib rvr Has provider been notified: Yes 07/28/22 10:48 Consult to Psychiatry Stat Consulting Provider: Psych Covering Reason for consultation: Full capacity-Lack of insight? Has provider been notified: Yes 07/29/22 08:20 Consult to Psychiatry Routine Consulting Provider: Psych Covering Reason for consultation: reeval for capacity to decide on medical care and AMA. 08/27/22 10:36 Consult to Psychiatry Routine Consulting Provider: Psych Covering Reason for consultation: reeval for capacity to take medical decisions, change HCP 08/30/22 08:14 Consult to Psychiatry Routine Consulting Provider: Psych Covering Reason for consultation: Capacity to change hcp 09/07/22 10:44 Consult to Pulmonology Routine Consulting Provider: [facility] [place] [facility] Reason for consultation: Hypoxia, atypical infiltrates 09/07/22 10:45 Consult to Cardiology Routine Consulting Provider: [facility] [place] [facility] Reason for consultation: heart failur exacerbation, Afib w rvr 09/08/22 11:22 Consult to Critical Care Routine Consulting Provider: Jeromy Ac Reason for consultation: Hypoxic respiratory failure , eval for need of BiPAP for work of breathing. DS: Diagnosis Discharge Diagnosis (1) Acute respiratory failure with hypoxia: Status: Acute (2) Aspiration pneumonia: Status: Acute (3) Atrial fibrillation with RVR: Status: Acute (4) Pulmonary edema: Status: Acute (5) Hypotension: Status: Acute (6) Sepsis: Status: Acute (7) Aortic stenosis: Status: Acute DS: Summary Hospital Course Hospital Course: The patient had prolonged hospital stay. for full details please return to EMR. Admission note HPI 77-year-old female with hypothyroidism, [id number] type 2 diabetes, hypertension, hyperlipidemia, paroxysmal atrial fibrillation anticoagulated with Eliquis, history of invasive ductal carcinoma of the breast, and history of uterine cancer. admitted twice this past week for afib with rvr, hypoglycemia, and twice left AMA after demonstrating capacity to make decisions. now presenting after being found on floor. patient states she fell asleep in her chair and slipped off and fell on floor and couldnt get up rigth away, reports being down 20 hours, though unclear, and eventually was able to call 911. in ED found to be in afib with rvr. Hospital course The patient was admitted primarly for evaluation of fall and paroxysmal afib with rvr. found to have severe on echo. controlled with higher doses of Metoprolol. seen by PT who recommended SNF. the patient wanted to go back home but felt unsafe as she was recently discharged home and came [facility] with another fall. for that reason she was evaluated by psychiatry for lack Capacity 2/2 cognitive impairment. evaluated by psych on admission, has no capacity to sign AMA or take medical decisions at this point, her HCP invoked as she signed her daughter Dori during previous admission. and was waiting on bed from facilities. seen by psych again 08/30/22 to eval capacity to change HCP, does not appear to have capacity for that decision as well. on 09/05 she developed Acute hypoxic respiratory failure 2/2 acute diastolic CHF exacerbation and aspiration pneumonia\pneumonitis with hypotension requiring IV fluids and albumin with broad spectrum antibiotics, steroids and lasix as CXR showed large bilateral effusions with bilateral infiltrates. she continued to deteriorate physically and mentally inspite of change to IV Bumex drip, Given Albumin, increased dose of Steroids as she was evaluated by pulmonology and critical care. goals of care were discussed and HCP decided for DNR\DNI. She continued to require increasing amoung of O2 supplement. placed on high flow and NRB maxed up. kidney started to fail with decrease output and elevated Creatinine. 09/09/2022 Worsening physically and mentally with increase O2 requirment, worseing respiratory status and CXR, decrease urine output, worsening kidney function with AFib rvr, unable to tolerate PO and altered mentation while on IV Abx and IV bumex drip. 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 placed on morphine and ativan. The patient passed at 1610 09/09/2022. family at the bedside. support offered. Time Spent with Patient Time attestation: Total time managing care of this patient today ____ minutes. Discharge coordination time: Greater than 30 minutes Quality: Safe Use of Opioids Does Pt have an Active Cancer Diagnosis on the Problem List?: No Quality: Stroke Does the patient have a stroke diagnosis?: No Physical Exam Vital Signs: Vital Signs: Last Vital Signs Temp 96.9 F 09/09/22 07:47 Pulse 135 H 09/09/22 08:33 Resp 22 H 09/09/22 12:00 BP 127/68 09/09/22 07:47 Pulse Ox 92 09/09/22 07:47 O2 Del Method High Flow Nasal C annula, Non-Rebrea ther Mask 09/09/22 07:47 O2 Flow Rate 55 09/09/22 07:47 FiO2 100 09/09/22 07:47 BMI result Body Mass Index 29.6 Const: Other: DS: Data Data Completed and Pending Labs on day of discharge: Laboratory Results - last 24 hr 09/08/22 09/08/22 09/09/22 20:01 20:53 06:31 WBC 29.8 H RBC 4.88 Hgb 14.3 Hct 44.0 MCV 90.2 MCH 29.3 MCHC 32.5 RDW 14.6 Plt Count 230 MPV 9.7 Absolute Nucleated RBC 0.000 Nucleated RBC % (auto) 0.0 Sodium 144 Potassium 2.7 L Chloride 86 L Carbon Dioxide 41 H* Anion Gap 20 BUN 47 H Creatinine 1.28 Estim Creat Clear Calc 31.4 Estimated GFR 40 POC Glucose 234 H Random Glucose 253 H Calcium 9.6 D B-Natriuretic Peptide 09/09/22 09/09/22 09/09/22 06:31 07:04 07:50 WBC RBC Hgb Hct MCV MCH MCHC RDW Plt Count MPV Absolute Nucleated RBC Nucleated RBC % (auto) Sodium 148 H Potassium 2.9 L Chloride 88 L Carbon Dioxide 43 H* Anion Gap 20 BUN 58 H Creatinine 1.43 H Estim Creat Clear Calc 28.1 Estimated GFR 35 POC Glucose 217 H Random Glucose 212 H Calcium 9.5 B-Natriuretic Peptide 1137 H Preliminary micro results at discharge 09/05/22 12:09 Blood Culture - Preliminary Blood - Venous No growth after 48 hours. 09/05/22 12:09 Blood Culture - Preliminary Blood - Venous No growth after 48 hours. Imaging Chest x-ray: Radiologist's impression: ITS Impressions Chest X-Ray 07/27/22 20:30 IMPRESSION: CHF Chest X-Ray 09/05/22 03:53 IMPRESSION: Persistent regions of bibasilar airspace opacity and small pleural effusions. Increasing opacity in the right upper lung compared to prior. Findings may be secondary to edema, though superimposed infection cannot be excluded in the proper clinical setting. Chest X-Ray 09/05/22 08:40 IMPRESSION: Slight interval improvement in lung aeration. Persistent moderate left-sided pleural effusion with patchy bilateral airspace disease. Chest X-Ray 09/07/22 09:02 IMPRESSION: * Lungs are suboptimally evaluated due to hypoinflation and crowding of bronchovascular structures. * Cardiomegaly, apparent pulmonary vascular congestion and persistent bilateral pulmonary opacities. The pulmonary opacities are nonspecific and could reflect presence of asymmetric pulmonary edema or multilobar pneumonia. There is worsening patchy opacity in the right perihilar region. Chest X-Ray 09/08/22 05:47 IMPRESSION: Redemonstrated extensive heterogeneous opacities throughout both lungs, with interval worsening in the left perihilar region. Persistent small to moderate right and small left pleural effusions. Chest X-Ray 09/09/22 08:03 IMPRESSION: 1. Increasing moderate to large right-sided pleural effusion with adjacent airspace opacities. 2. Small to moderate left-sided pleural effusion with adjacent airspace opacities. Discharge Plan Discharge Date/Time: 09/09/22 16:10 Patient Disposition: Discharge Diagnosis: Hypoxic respiratory failure Aspiration pneumonia Heart failure Referrals: Name,MD Oral [Primary Care Provider] - 1 Week Discharge Medications: No Action metoprolol tartrate 50 mg tablet 50 mg PO BID Qty: 60 0RF cefuroxime axetil 500 mg tablet 500 mg PO BID Qty: 10 0RF Rx Instructions: END DATE: 07/30/22 furosemide 20 mg tablet 20 mg PO DAILY Qty: 30 0RF (DME) blood-glucose meter [FreeStyle Lite Meter] Kit See Rx Instructions .Route Qty: 1 0RF Rx Instructions: As directed (DME) FreeStyle Test Strip See Rx Instructions .Route Qty: 100 0RF Rx Instructions: BID (DME) lancets [FreeStyle Lancets] 28 gauge misc See Rx Instructions .Route Qty: 100 0RF Rx Instructions: As directed Eliquis 5 mg tablet 5 mg PO BID metformin 850 mg Tablet 850 mg PO BIDWM Qty: 60 2RF glipizide 10 mg tablet 10 mg PO DAILY CeraVe Cream 1 appl topical NEEDED PRN (Reason: Dry Skin) enalapril maleate 20 mg tablet 20 mg PO DAILY levothyroxine 112 mcg tablet 112 mcg PO DAILY@0600 atorvastatin 20 mg tablet 20 mg PO BEDTIME multivitamin Tablet 1 tab PO DAILY (DME) blood sugar diagnostic Strip See Rx Instructions .ROUTE QID Qty: 10 Rx Instructions: As directed aspirin 81 mg tablet,delayed release (DR/EC) 81 mg PO DAILY Patient Instructions: Heart Failure (ED), Diabetic Hyperglycemia (ED)
== END 2022-09-09 19:24 | disposition expired | DRG 306 ==
LOC: HO.ED 07-28 08:09 → HO.EDOVER 07-28 13:00 → HO.IMC 07-28 13:02
PROVIDERS: Emergency Medicine; Internal Medicine; Internal Medicine Pulmonary Disease; Admitting Provider Student in an Organized Health Care Education/Training Program; Emergency Provider Emergency Medicine Emergency Medical Services; PCP Internal Medicine Geriatric Medicine; Visit Provider Student in an Organized Health Care Education/Training Program
DX: I35.0 Nonrheumatic aortic (valve) stenosis (principal); A41.9 Sepsis, unspecified organism; G93.41 Metabolic encephalopathy; I50.33 Acute on chronic diastolic (congestive) heart failure; J96.01 Acute respiratory failure with hypoxia; J69.0 Pneumonitis due to inhalation of food and vomit; F05 Delirium due to known physiological condition; I11.0 Hypertensive heart disease with heart failure; I48.0 Paroxysmal atrial fibrillation; E78.5 Hyperlipidemia, unspecified; E03.9 Hypothyroidism, unspecified; Z51.5 Encounter for palliative care; Z66 Do not resuscitate; D75.1 Secondary polycythemia; F03.90 Unspecified dementia, unspecified severity, without behavioral disturbance, psychotic disturbance, mood disturbance, and anxiety; I95.9 Hypotension, unspecified; R00.1 Bradycardia, unspecified; E11.649 Type 2 diabetes mellitus with hypoglycemia without coma; E86.0 Dehydration; E11.65 Type 2 diabetes mellitus with hyperglycemia; Z85.3 Personal history of malignant neoplasm of breast; Z85.42 Personal history of malignant neoplasm of other parts of uterus; Z79.01 Long term (current) use of anticoagulants; Z79.82 Long term (current) use of aspirin; Z79.84 Long term (current) use of oral hypoglycemic drugs; Z79.899 Other long term (current) drug therapy
CPT/HCPCS: 36415; 71045; 80048; 80076; 80202; 81001; 82040; 82550; 82565; 82803; 82947; 83605; 83735; 83880; 84439; 84443; 84484; 85025; 85027; 85610; 87040; 87086; 92610; 93005; 93306; 94640; 97110; 97116; 97162; 97530; 99285; J0613; J1160; J1940; J2270; J2543; J2920; J3370; J3371; P9047; Q9957